=== PATIENT | female | born 1935 | race Caucasian/White ===

== ENCOUNTER 2016-05-27 12:15 | Inpatient (IN) | payer OTHER, MEDICARE ==
[~2016-05-27] VITALS: Ht 157.5 cm; Wt 59.0 kg
[~2016-05-27 12:15] MED LIST: ALBUTEROL 3 ML3 ML INH; AMIODARONE200 MG PO; APIX2.5 PO; ATIVAN0.5 MG PO; ATORVASTATIN CA20 MG PO; BACTRIM DS 8001 TAB PO; BENTYL10 M1 PO; CARDIZEM 60 MG60 MG PO; CARDIZEM CD 12120 MG PO; CARDIZEM CD120 MG PO; CARDIZEM CD180 MG PO; CIPRO 500MG TA500 MG PO; CIPRO500 M1 PO; CORDARONE 200M200 MG PO; DILAUDID2 MG PO; DILTIAZEM HCL240 MG PO; DILTIAZEM180 MG PO; DULCOLAX5 MG PO; DUONEB 3 MG/3 ML3 ML INH/SOL; ECOTRIN81 MG PO; ELIQUIS2.5 MG PO; ELIQUIS5 MG PO; FERATE28 MG PO; FERROUS SULFAT325 M1 PO; FLEXERIL10 MG PO; FUROSEMIDE40 MG PO; GOOD SENSE ASPI81 M1 PO; K-DUR 10MEQ TA10 MEQ PO; KLOR PO; LASIX20 MG PO; LASIX40 MG PO; LASIX80 MG PO; LEVOTHROID SOD0.1 MG PO; LEVOTHROID0.125 MG PO; LEVOTHYROXINE0.1 M1 PO; LEVOTHYROXINE0.1 MG PO; LISINOPRIL10 MG PO; LISINOPRIL20 MG PO; LISINOPRIL40 MG PO; LOPRESSOR 25MG25 MG PO; LOPRESSOR50 MG PO; MAGNESIUM OXID400 MG PO; METFORMIN HYDR500 MG PO; METOPROLOL SUCC50 MG PO; METOPROLOL TART50 MG PO; MIRALAX17 GM PO; MYCOSTATIN POWD15 GM TOP; NORVASC 10MG10 MG PO; NORVASC 5MG TAB5 MG PO; OMEPRAZOLE D/R20 MG PO; PLAVIX 75MG TAB75 MG PO; POTASSIUM CHLO10 ME1 PO; PREDNICOT10 MG PO; PREDNISONE 20MG20 MG PO; PRILOSEC 20MG C20 MG PO; SENNA8.6 MG PO; SYMBICORT 80/4.1 PUF INH; TRAMADOL HYDROC50 MG PO; TRAMADOL50 MG PO; ULTRAM(MONOGRAP50 MG PO; ZOFRAN ODT4 M1 SL
--- NOTE | 2016-05-27 12:25 | NUR ---
TRIAGE: PT TO ER WITH SON C/C COUGH, CONGESTION AND N/V. ONSET 3 DAYS AGO. STATES SHE IS COUGHING SO MUCH THAT SHE IS SPITTING UP PHLEGM. STATES HAS NOT BEEN ABLE TO EAT IN A FEW DAYS. PT O2 DEPENDENT AT BASELINE, USES 2-3L VIA N/C BUT THEY FORGOT TO BRING HER TANK WITH THEM THEY WERE IN "SUCH A [place]" COMING IN TO ER. R/A SATS 93% AT TRIAGE.
--- NOTE | 2016-05-27 12:25 | NUR ---
Informed waiting has been performed.
--- NOTE | 2016-05-27 12:42 | ED DYSPNEA/ASTHMA COMPLAINT ---
History of Present Illness General Chief Complaint: General Adult Stated Complaint: COUGH, CONGESTION, +N/V Source: patient Exam Limitations: no limitations Vital Signs & Intake/Output Vital Signs & Intake/Output Vital Signs Date Time Temp Pulse Resp B/P Pulse O2 O2 Flow FiO2 Ox Delivery Rate 05/27 1508 98.2 62 20 148/72 94 Room Air 05/27 1338 98 Nasal 2.0L Cannula 05/27 1222 98.6 65 22 153/75 93 Room Air Allergies Coded Allergies: amlodipine (Severe, C/P 05/27/16) codeine (Severe, C/P 05/27/16) morphine (Severe, C/P 05/27/16) omeprazole (Severe, C/P 05/27/16) Triage Note: TRIAGE: PT TO ER WITH SON C/C COUGH, CONGESTION AND N/V. ONSET 3 DAYS AGO. STATES SHE IS COUGHING SO MUCH THAT SHE IS SPITTING UP PHLEGM. STATES HAS NOT BEEN ABLE TO EAT IN A FEW DAYS. PT O2 DEPENDENT AT BASELINE, USES 2-3L VIA N/C BUT THEY FORGOT TO BRING HER TANK WITH THEM THEY WERE IN "SUCH A [place]" COMING IN TO ER. R/A SATS 93% AT TRIAGE. Triage Nurses Notes Reviewed? yes HPI: 80-year-old female arrives through triage to room 2 for evaluation of cough, congestion that she has had for about a week. She reports it has been getting worse with some chills and felt feverish but never took her temperature. And is yellow to a light brown color. She denies any chest pain or pressure but does have shortness of breath and shortness of breath on exertion. Denies any nausea , vomiting, diarrhea or abdominal pain. She denies any pain at this time. She has a history of multiple medical issues including CAD, atrial fibrillation, CHF , lung cancer status post lobectomy, interstitial lung disease. (NILDA TURK APRN) Reconcile Medications Albuterol Sulfate/Ipratropiu (Duoneb) 3 MG/3 ML NEB 1 Vial INH/ROCIO PRN DYSPNEA (Reported) Amiodarone Hydrochloride (Amiodarone) 200 MG TAB 1 TAB PO DAILY HEART RHYTHM (Reported) Amlodipine (Norvasc 5MG Tab) 5 MG TAB 1.5 TAB PO DAILY HIGH BP Apixaban (Eliquis) 2.5 MG TAB 1 TAB PO BID BLOOD THINNER (Reported) Atorvastatin Calcium (Lipitor) 20 MG TABLET 1 TAB PO DAILY CHOLESTEROL ( Reported) Ciprofloxacin (Cipro) 500 MG TAB 1 TAB PO BID UTI Ciprofloxacin HCl (Cipro) 500 MG TABLET 1 TAB PO BID UTI Dicyclomine Hydrochloride (Bentyl) 10 MG CAPSULE 1 CAP PO TID PRN ABDOMINAL SPASMS DILTIAZEM HCL (Cardizem Cd) 120 MG CER 1 TAB PO DAILY HEART RATE (Reported) Levothyroxine Sodium 0.1 MG TAB 1 TAB PO DAILY HYPERTHYROIDISM PLEASE TAKE THIS TABLET IN AM. Lisinopril 40 MG TAB 1 TAB PO DAILY HYPERTENSION Lorazepam (Ativan) 0.5 MG TAB 1 TAB PO Q6-8P PRN ANXIETY (Reported) Magnesium Oxide 400 MG TABLET 1 TAB PO DAILY MINERAL SUPPLEMENT (Reported) METFORMIN HCL (Metformin Hydrochloride) 500 MG TABLET 1 TAB PO DAILY DIABETES MELLITUS (Reported) Metoprolol Tartrate (Lopressor) 25 MG TAB 1 TAB PO BID BLOOD PRESSURE Nystatin (Mycostatin Powder) 15 GM PWD 1 JC TOP TID PRN fungal rash Ondansetron (Zofran Odt) 4 MG TAB.RAPDIS 1 TAB SL TID PRN nausea Ondansetron (Zofran Odt) 4 MG TAB.RAPDIS 1 TAB SL TID PRN NAUSEA Prednisone 20 MG TAB 1 TAB PO DAILY SOB TRAMADOL HCL (Tramadol) 50 MG TAB 1 TAB PO TID PRN PAIN (BRAYDEN VENCES,KYLAH Jiménez) Past History Travel History Traveled to [place] past 21 day No Medical History Any Pertinent Medical History? see below for history Neurological: LOWER EXTREMITY WEAKNESS EENT: epistaxis Cardiovascular: AFIB, CAD (s/p stent to RCA), CHF, hypertension, hyperlipidemia Respiratory: COPD, interstitial lung disease, LUNG CA RUL LOBECTOMY O2 DEPENDENT 2-3L Gastrointestinal: diverticulitis, lactose intolerance, COLON CA SIGMOID COLECTOMY 02/13 colonoscopy fair prep - tics but no polyps 02/13- egd gastritis Hepatic: NONE Renal: urinary incontinence Musculoskeletal: chronic back pain, BROKEN BACK 15 YEARS AGO UNABLE TO BEAR WEIGHT Psychiatric: anxiety Endocrine: diabetes, hypothyroidism Blood Disorders: anemia Cancer(s): lung cancer (s/p right lobectomy), COLON/rectal DOSIMETRIST/Reproductive: TUBAL LIGATION History of MRSA: No History of VRE: No History of CDIFF: No Surgical History Surgical History: appendectomy, cholecystectomy, cataract removal, right lung resection sigmoid colectomy back surgery sigmoid colectomy Psychosocial History Who do you live with Daughter Services at Home Nursing What is your primary language Czech Tobacco Use: Quit >30 days ago ETOH Use: denies use Illicit Drug Use: denies illicit drug use Family History Family History, If Any: MOTHER FHx: stomach cancer FATHER FH: cancer BROTHER FH: prostate cancer Hx Contributory? No (NILDA TURK APRN) Review of Systems Review of Systems Constitutional: Reports: see HPI, chills, fever, malaise, weakness. EENTM: Denies: no symptoms. Respiratory: Reports: cough, orthopnea, short of breath, sputum production. Cardiovascular: Denies: no symptoms. GI: Reports: constipation, nausea, vomiting. Genitourinary: Denies: no symptoms. Musculoskeletal: Denies: no symptoms. Skin: Denies: no symptoms. Neurological/Psychological: Reports: tremors. Hematologic/Endocrine: Denies: no symptoms. Immunologic/Allergic: Denies: no symptoms. (NILDA TURK APRN) Physical Exam Physical Exam General Appearance: alert, awake, mild distress Head: atraumatic, normal appearance, active bleeding Eyes: Bilateral: normal appearance, PERRL, EOMI. Ears, Nose, Throat: normal pharynx, normal ENT inspection Neck: normal inspection, supple, full range of motion Respiratory: decreased breath sounds, wheezing Cardiovascular: regular rate/rhythm Peripheral Pulses: 2+ radial (R), 2+ radial (L), 2+ dorsalis pedis (R), 2+ dorsalis pedis (L) Gastrointestinal: normal bowel sounds, soft, tenderness (RIGHT UPPER QUADRANT) Extremities: normal inspection, normal capillary refill, normal range of motion, no edema Neurologic/Psych: no motor/sensory deficits, awake, alert, oriented x 3 Skin: intact, normal color, warm/dry Core Measures ACS in differential dx? No Severe Sepsis Present: No Septic Shock Present: No (NILDA TURK APRN) Progress Differential Diagnosis: bronchitis, CHF, COPD, pneumonia, LIVER PATHOLOGY Plan of Care: Orders Procedure Date/time Status CBC WITHOUT DIFFERENTIAL 05/29 599 Active BASIC ELECTROLYTES PLUS BUN&CR 05/29 599 Active Full Liquid Diet 05/28 B Active HEPATIC FUNCTION PANEL 05/27 181 Active TRC EVALUATION (GEN) 05/27 181 Active OXYGEN SETUP (GEN) 05/27 181 Active Pathway - chart 05/27 181 Active House Staff 05/27 181 Active Patient Data 05/27 181 Active Code Status 05/27 181 Active Patient Data 05/27 1808 Active US-ABD/PELV ORGAN DOPPLER 05/27 1658 Active Patient Data 05/27 1610 Active Admit to inpatient 05/27 1558 Active Add-on Test (ER Only) 05/27 1536 Active Add-on Test (ER Only) 05/27 1406 Active AEROSOL (GEN) 05/27 1342 Complete PARTIAL THROMBOPLASTIN TIME 05/27 1300 Complete PROTHROMBIN TIME 05/27 1300 Complete HEPATITIS PANEL 05/27 1300 Active Saline Lock 05/27 1245 Active RAPID VIRAL INFLUENZA A 05/27 1245 Complete BLOOD CULTURE 05/27 1245 Active TROPONIN LEVEL 05/27 1245 Active COMPREHENSIVE METABOLIC PANEL 05/27 1245 Active CBC WITHOUT DIFFERENTIAL 05/27 1245 Complete B-TYPE NATRIURETIC PEP (BNP) 05/27 1245 Active EKG 05/27 1245 Active VTE Mechanical Prophylaxis 05/27 UNK Active Telemetry/Frame Hand 05/27 UNK Active Current Medications Sig/Jonel Start time Last Medication Dose Stop Time Status Admin Amlodipine Besylate 7.5 MG DAILY 05/28 1000 UNVr (Norvasc) Magnesium Oxide 400 MG DAILY 05/28 1000 AC (Mag-Ox) Levothyroxine Sodium 0.1 MG DAILY AC 05/28 0700 AC (Synthroid) Apixaban 2.5 MG BID 05/27 2200 UNVr (Eliquis) Metoprolol Tartrate 25 MG BID 05/27 2200 AC (Lopressor) Albuterol Sulfate 3 ML Q6 PRN 05/27 181 AC (Proventil) Lisinopril 40 MG DAILY 05/27 181 AC (Prinivil) Diltiazem HCl 120 MG DAILY 05/27 181 AC (Cardizem CD) Sodium Chloride 1,000 ML .[id number] 05/27 1800 AC (Normal Saline 0.9%) 05/28 0719 Laboratory Tests 05/27/16 1300: Anion Gap 11, Estimated GFR > 60, BUN/Creatinine Ratio 22.9, Glucose 86, Calcium 8.8, Total Bilirubin 1.1, AST 2312 H, ALT 1633 H, Alkaline Phosphatase 123, Troponin I 0.04, Hvd-I-Bkaoosatsbl Pept 7110 H, Total Protein 7.1, Albumin 3.6, Globulin 3.5, Albumin/Globulin Ratio 1.0 L, PT 25.6 H, INR 2.46 H, APTT 37, CBC w Diff NO MAN DIFF REQ, RBC 3.67 L, MCV 85.8, MCH 28.2, RDW 19.4 H, MPV 7.6, Gran % 77.3 H, Lymphocytes % 17.7 L, Monocytes % 4.1, Eosinophils % 0.5, Basophils % 0.4, Absolute Granulocytes 8.4 H, Absolute Lymphocytes 1.9, Absolute Monocytes 0.4, Absolute Eosinophils 0.1, Absolute Basophils 0, PUBS MCHC 32.8 L, Hepatitis A IgM Ab Pending, Hep Bs Antigen Pending, Hep B Core IgM Ab Conf Pending, Hepatitis C Antibody Pending Microbiology 05/27 1620 NASOPHARYN: Influenza Virus A & B Rapid Smear - COMP INFLUENZA TYPE A 05/27 1556 BLOOD: Blood Culture - RECD 05/27 1300 BLOOD: Blood Culture - RECD Initial ED EKG: LBBB Prior EKG: unchanged Comments: PATIENT: VINCENT DRUMMOND PRESENT AGE: 80 PATIENT ACCOUNT NO: [id number] : 35 LOCATION: [facility] ORDERING PHYSICIAN: NILDA TURK APRN SERVICE DATE: 05/27/161245 EXAM TYPE: RAD - XRY-CHEST XRAY, PA AND LATERAL EXAMINATION: XR CHEST CLINICAL INFORMATION: Pneumonia COMPARISON: Chest x-ray 04/01/2016 TECHNIQUE: AP and lateral upright chest x-ray FINDINGS: There is mild cardiomegaly and a tortuous calcified aorta unchanged from prior. There is some surgical sutures in the right upper lobe along with some volume loss in the right hemithorax. This is unchanged from prior and may be related to prior right upper lobectomy. A small focal parenchymal opacity in the left midlung zone is new since prior study and could represent a focus of subsegmental atelectasis. No dense consolidation is appreciated. There is no pleural effusion or pneumothorax. There is spinal fusion hardware over the lower thoracic and upper lumbar spine. Bony detail is limited. IMPRESSION: There are are chronic changes in the right lung consistent with the history of prior right upper lobectomy. There is a streaky parenchymal opacity in the left midlung zone which is new or more prominent compared to prior study and could represent an area of subsegmental atelectasis. No dense consolidation is seen and there is no other change. DICTATED BY: ADILENE BOOTH MD DATE/TIME DICTATED:05/27/161422 PLAYBACK OPERATOR:ADAM DATE/TIME TRANSCRIBED:05/27/161422 CONFIDENTIAL, DO NOT COPY WITHOUT APPROPRIATE AUTHORIZATION. <Electronically signed in Other Vendor System> SIGNED BY: ADILENE BOOTH MD 05/27 1431 PATIENT: VINCENT DRUMMOND PRESENT AGE: 80 PATIENT ACCOUNT NO: [id number] : 35 LOCATION: [facility] ORDERING PHYSICIAN: NILDA TURK APRN SERVICE DATE: 05/27/16 EXAM TYPE: US - US-LIMITED ABDOMEN EXAMINATION: US ABDOMEN LIMITED CLINICAL INFORMATION: Elevated liver enzymes. Right upper quadrant pain. Presumptive diagnosis of retained stones. COMPARISON: Right upper quadrant ultrasound dated 05/06/2015. TECHNIQUE: Real-time imaging of the right upper quadrant abdominal viscera. FINDINGS: PANCREAS: The pancreatic body and portions of the head and tail are visualized and appear atrophic, but otherwise unremarkable. LIVER: Normal. The liver demonstrates normal size, contour and echogenicity. No focal lesion or intrahepatic biliary duct dilatation. GALLBLADDER: The patient is status post cholecystectomy. COMMON BILE DUCT: Normal in caliber measuring 0.4 cm in diameter. RIGHT KIDNEY: There is an exophytic approximately 3.0 x 3.7 x 2.9 cm partially exophytic cyst in the upper pole of the right kidney. No other focal parenchymal lesions. The kidney measures at least 9.4 cm in maximum dimension. No hydronephrosis. No renal calculi. The previously demonstrated extrarenal pelvis and dilated right ureter are not imaged. FREE FLUID: None. IMPRESSION: 1. Status post cholecystectomy with no evidence of intra or extrahepatic biliary ductal dilatation. 2. Incomplete view of the pancreatic head and tail. Visualized portions of the pancreas appear atrophic but otherwise unremarkable. 3. Exophytic upper pole right renal cyst. 4. Previously demonstrated extrarenal pelvis and dilated right ureter not seen on this exam versus resolved in the interim. DICTATED BY: JAMAAL VALLEJO MD DATE/TIME DICTATED:05/27/161507 PLAYBACK OPERATOR:ADAM DATE/TIME TRANSCRIBED:05/27/161507 CONFIDENTIAL, DO NOT COPY WITHOUT APPROPRIATE AUTHORIZATION. <Electronically signed in Other Vendor System> SIGNED BY: JAMAAL VALLEJO MD 1532 3:49 PM spoke to family and patient about being admitted for COPD exacerbation and the need for IV antibiotics, breathing treatments also further investigation for the elevated liver enzymes. I explained to her that her ultrasound of her abdomen WNL and that gastroenterology will be on board. She is taking amiodarone/Eliquis could alter her hepatic metabolism. Case discussed with Dr. Vigil (NILDA TURK APRN) Departure Departure Time of Disposition: 1553 Disposition: STILL A PATIENT Condition: Stable Clinical Impression Primary Impression: COPD exacerbation Secondary Impressions: Transaminitis Referrals: DIVYA VENCES,MARCI Cazares (PCP/Family) Departure Forms: Customer Survey General Discharge Information Prescriptions: Current Visit Scripts Ondansetron (Zofran Odt) 1 TAB SL TID PRN nausea #10 TAB Admission Note Spoke With: BEHZAD CASTRO MD Documentation of Exam: Documentation of any treatments & extenuating circumstances including Concerns Regarding Discharge (functional status, medication knowledge or non-compliance, living conditions, etc.) that warrant an admission rather than observation: She will be need admission to general medicine for COPD exacerbation, IV antibiotics , respiratory treatments also gastroenterology consultation due to transaminitis , abdominal ultrasound was negative but hepatitis panel is pending. Could be medication interaction with amiodarone, Eliquis- combination may increase Eliquis levels, risk of bleeding, hepatic metabolism inhibited. (NILDA TURK APRN) PA/AUTOMOTIVE PARTS COUNTER ASSOCIATE Co-Sign Statement Statement: ED Attending supervision documentation- [X] I saw and evaluated the patient. I have also reviewed all the pertinent lab results and diagnostic results. I agree with the findings and the plan of care as documented in the PA's/AUTOMOTIVE PARTS COUNTER ASSOCIATE's documentation. [X] I have reviewed the ED Record and agree with the PA's/AUTOMOTIVE PARTS COUNTER ASSOCIATE's documentation. [] Additions or exceptions (if any) to the PAs/AUTOMOTIVE PARTS COUNTER ASSOCIATE's note and plan are summarized below: [] (BRAYDEN VENCES,KYLAH Jiménez) Critical Care Note Critical Care Note Critical Care Time: non-applicable (NILDA TURK APRN)
--- NOTE | 2016-05-27 13:06 | NUR ---
PT TO ROOM2 BY WHEELCHAIR, EVALUATED BY MACRINA MUNGUIA. BLOOD DRAWN AND SENT TO LAB[facility] [place]. EKG IN PROGRESS.
--- NOTE | 2016-05-27 13:15 | NUR ---
PT MEDICATED WITH PREDNISONE PER EMAR.
[2016-05-27 13:16] LABS: ABSOLUTE BASOPHIL COUNT 0 /CUMM (0.0-0.2); ABSOLUTE EOSINOPHIL COUNT 0.1 /CUMM (0.0-0.7); ABSOLUTE GRANULOCYTE CT 8.4 /CUMM (1.4-6.5); ABSOLUTE LYMPH COUNT 1.9 /CUMM (1.2-3.4); ABSOLUTE MONOCYTE COUNT 0.4 /CUMM (0.10-0.60); BASOPHIL % 0.4 % (0.0-2.0); EOSINOPHIL % 0.5 % (0-5); GRANULOCYTE % 77.3 % (42.2-75.2); HEMATOCRIT 31.5 % (37-47); MEAN CORPUSCULAR HGB 28.2 PG (27.0-31.0); MEAN CORPUSCULAR HGB CONC 32.8 G/DL (33.0-37.0); MEAN CORPUSCULAR VOLUME 85.8 FL (81.0-99.0); MEAN PLATELET VOLUME 7.6 FL (7.4-10.4); PLATELET COUNT 400 /CUMM (130-400); RBC DISTRIBUTION WIDTH 19.4 % (11.5-14.5); RED BLOOD CELL CT 3.67 /CUMM (4.20-5.40); WHITE BLOOD CELL COUNT 10.8 /CUMM (4.8-10.8)
--- NOTE | 2016-05-27 13:22 | NUR ---
PT TO RAD BY STRETCHER.
--- NOTE | 2016-05-27 13:36 | NUR ---
PT RETURNED FROM RAD, RESP TO BEDSIDE FOR TX.
[2016-05-27 14:20] LABS: PT 25.6 SEC (9.4-12.5); PTT 37 SEC (25-37)
--- NOTE | 2016-05-27 14:31 | RADIOLOGY REPORT ---
EXAMINATION: XR CHEST CLINICAL INFORMATION: Pneumonia COMPARISON: Chest x-ray 04/01/2016 TECHNIQUE: AP and lateral upright chest x-ray FINDINGS: There is mild cardiomegaly and a tortuous calcified aorta unchanged from prior. There is some surgical sutures in the right upper lobe along with some volume loss in the right hemithorax. This is unchanged from prior and may be related to prior right upper lobectomy. A small focal parenchymal opacity in the left midlung zone is new since prior study and could represent a focus of subsegmental atelectasis. No dense consolidation is appreciated. There is no pleural effusion or pneumothorax. There is spinal fusion hardware over the lower thoracic and upper lumbar spine. Bony detail is limited. IMPRESSION: There are are chronic changes in the right lung consistent with the history of prior right upper lobectomy. There is a streaky parenchymal opacity in the left midlung zone which is new or more prominent compared to prior study and could represent an area of subsegmental atelectasis. No dense consolidation is seen and there is no other change.
--- NOTE | 2016-05-27 14:57 | NUR ---
PT TO AND FROM US BY STRETCHER.
--- NOTE | 2016-05-27 15:32 | ULTRASOUND REPORT ---
EXAMINATION: US ABDOMEN LIMITED CLINICAL INFORMATION: Elevated liver enzymes. Right upper quadrant pain. Presumptive diagnosis of retained stones. COMPARISON: Right upper quadrant ultrasound dated 05/06/2015. TECHNIQUE: Real-time imaging of the right upper quadrant abdominal viscera. FINDINGS: PANCREAS: The pancreatic body and portions of the head and tail are visualized and appear atrophic, but otherwise unremarkable. LIVER: Normal. The liver demonstrates normal size, contour and echogenicity. No focal lesion or intrahepatic biliary duct dilatation. GALLBLADDER: The patient is status post cholecystectomy. COMMON BILE DUCT: Normal in caliber measuring 0.4 cm in diameter. RIGHT KIDNEY: There is an exophytic approximately 3.0 x 3.7 x 2.9 cm partially exophytic cyst in the upper pole of the right kidney. No other focal parenchymal lesions. The kidney measures at least 9.4 cm in maximum dimension. No hydronephrosis. No renal calculi. The previously demonstrated extrarenal pelvis and dilated right ureter are not imaged. FREE FLUID: None. IMPRESSION: 1. Status post cholecystectomy with no evidence of intra or extrahepatic biliary ductal dilatation. 2. Incomplete view of the pancreatic head and tail. Visualized portions of the pancreas appear atrophic but otherwise unremarkable. 3. Exophytic upper pole right renal cyst. 4. Previously demonstrated extrarenal pelvis and dilated right ureter not seen on this exam versus resolved in the interim.
[2016-05-27] MEDS ORDERED: ZOFRAN ODT4 M1 SL (15:52)
--- NOTE | 2016-05-27 16:10 | NUR ---
PT MEDICATED WITH ROCEPHIN PER EMAR. ZITHROMAX INFUSING PER EMAR.
--- NOTE | 2016-05-27 16:14 | History & Physical ---
General Information and HPI Allergies/Medications Allergies: Coded Allergies: amlodipine (Severe, C/P 05/27/16) codeine (Severe, C/P 05/27/16) morphine (Severe, C/P 05/27/16) omeprazole (Severe, C/P 05/27/16) Home Med list Albuterol Sulfate/Ipratropiu (Duoneb) 3 MG/3 ML NEB 1 Vial INH/ROCIO PRN DYSPNEA (Reported) Amiodarone Hydrochloride (Amiodarone) 200 MG TAB 1 TAB PO DAILY HEART RHYTHM (Reported) Amlodipine (Norvasc 5MG Tab) 5 MG TAB 1.5 TAB PO DAILY HIGH BP Apixaban (Eliquis) 2.5 MG TAB 1 TAB PO BID BLOOD THINNER (Reported) Atorvastatin Calcium (Lipitor) 20 MG TABLET 1 TAB PO DAILY CHOLESTEROL ( Reported) Ciprofloxacin (Cipro) 500 MG TAB 1 TAB PO BID UTI Ciprofloxacin HCl (Cipro) 500 MG TABLET 1 TAB PO BID UTI Dicyclomine Hydrochloride (Bentyl) 10 MG CAPSULE 1 CAP PO TID PRN ABDOMINAL SPASMS DILTIAZEM HCL (Cardizem Cd) 120 MG CER 1 TAB PO DAILY HEART RATE (Reported) Levothyroxine Sodium 0.1 MG TAB 1 TAB PO DAILY HYPERTHYROIDISM PLEASE TAKE THIS TABLET IN AM. Lisinopril 40 MG TAB 1 TAB PO DAILY HYPERTENSION Lorazepam (Ativan) 0.5 MG TAB 1 TAB PO Q6-8P PRN ANXIETY (Reported) Magnesium Oxide 400 MG TABLET 1 TAB PO DAILY MINERAL SUPPLEMENT (Reported) METFORMIN HCL (Metformin Hydrochloride) 500 MG TABLET 1 TAB PO DAILY DIABETES MELLITUS (Reported) Metoprolol Tartrate (Lopressor) 25 MG TAB 1 TAB PO BID BLOOD PRESSURE Nystatin (Mycostatin Powder) 15 GM PWD 1 JC TOP TID PRN fungal rash Ondansetron (Zofran Odt) 4 MG TAB.RAPDIS 1 TAB SL TID PRN nausea Ondansetron (Zofran Odt) 4 MG TAB.RAPDIS 1 TAB SL TID PRN NAUSEA Prednisone 20 MG TAB 1 TAB PO DAILY SOB TRAMADOL HCL (Tramadol) 50 MG TAB 1 TAB PO TID PRN PAIN Past History Travel History Traveled to [place] past 21 day No Medical History Neurological: LOWER EXTREMITY WEAKNESS EENT: epistaxis Cardiovascular: AFIB, CAD (s/p stent to RCA), CHF, hypertension, hyperlipidemia Respiratory: COPD, interstitial lung disease, LUNG CA RUL LOBECTOMY O2 DEPENDENT 2-3L Gastrointestinal: diverticulitis, lactose intolerance, COLON CA SIGMOID COLECTOMY 02/13 colonoscopy fair prep - tics but no polyps 02/13- egd gastritis Hepatic: NONE Renal: urinary incontinence Musculoskeletal: chronic back pain, BROKEN BACK 15 YEARS AGO UNABLE TO BEAR WEIGHT Psychiatric: anxiety Endocrine: diabetes, hypothyroidism Blood Disorders: anemia Cancer(s): lung cancer (s/p right lobectomy), COLON/rectal BUCKLE FRAME SHAPER/Reproductive: TUBAL LIGATION History of MRSA: No History of VRE: No History of CDIFF: No Surgical History Surgical History: appendectomy, cholecystectomy, cataract removal, right lung resection sigmoid colectomy back surgery sigmoid colectomy Past Family/Social History Family History Relations & Conditions if any MOTHER FHx: stomach cancer FATHER FH: cancer BROTHER FH: prostate cancer Psychosocial History Who Do You Live With? child, SHE LIVES WITH HER DAUGHTER Services at Home: Nursing ETOH Use: denies use Illicit Drug Use: denies illicit drug use Core Measures/Miscellaneous Severe Sepsis Severe Sepsis Present: No Septic Shock Septic Shock Present: No
--- NOTE | 2016-05-27 16:21 | NUR ---
FLU SWAB OBTAINED AND SENT TO LAB.
--- NOTE | 2016-05-27 16:45 | NUR ---
CRITICAL TEST RESULTS [id number] VINCENT DRUMMOND 80 F TESTS AND RESULTS: INFLUENZA A Results received and read back by: FOSTER BARLOW Results received date and time: 05/27/16 1645 The following provider was notified of the results, and read the results back: MACRINA MUNGUIA Notified date and time: 05/27/16 at 1645
--- NOTE | 2016-05-27 16:47 | NUR ---
DROPLET PRECAUTIONS INITIATED.
--- NOTE | 2016-05-27 16:55 | NUR ---
FOOD TRAY ORDERED FOR PT.
--- NOTE | 2016-05-27 17:29 | NUR ---
FOOD TRAY PROVIDED.
--- NOTE | 2016-05-27 17:32 | History & Physical ---
DO COKER 05/27/16 1732: General Information and HPI MD Statement: I have seen and personally examined VINCENT DRUMMOND and documented this H&P. 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 Cough started 5 days ago and was initially nonproductive and the last two days she has been having yellowis expectoration. Vomitus is nonbloody and mainly non digested food and is of two days duration. She has been unable to keep anything down since the past two days. She lives with her daughter and her daughter has simillar symptoms. Does not report increase in Oxygen requirements. Reported RUQ abdominal pain. Denies fever, chills, chest pain, new myalgias, change in bowel or bladder habits. Allergies/Medications Allergies: Coded Allergies: amlodipine (Severe, C/P 05/27/16) codeine (Severe, C/P 05/27/16) morphine (Severe, C/P 05/27/16) omeprazole (Severe, C/P 05/27/16) Home Med list Albuterol Sulfate/Ipratropiu (Duoneb) 3 MG/3 ML NEB 1 Vial INH/ROCIO PRN DYSPNEA (Reported) Amiodarone Hydrochloride (Amiodarone) 200 MG TAB 1 TAB PO DAILY HEART RHYTHM (Reported) Amlodipine (Norvasc 5MG Tab) 5 MG TAB 1.5 TAB PO DAILY HIGH BP Apixaban (Eliquis) 2.5 MG TAB 1 TAB PO BID BLOOD THINNER (Reported) Atorvastatin Calcium (Lipitor) 20 MG TABLET 1 TAB PO DAILY CHOLESTEROL ( Reported) Ciprofloxacin (Cipro) 500 MG TAB 1 TAB PO BID UTI Ciprofloxacin HCl (Cipro) 500 MG TABLET 1 TAB PO BID UTI Dicyclomine Hydrochloride (Bentyl) 10 MG CAPSULE 1 CAP PO TID PRN ABDOMINAL SPASMS DILTIAZEM HCL (Cardizem Cd) 120 MG CER 1 TAB PO DAILY HEART RATE (Reported) Levothyroxine Sodium 0.1 MG TAB 1 TAB PO DAILY HYPERTHYROIDISM PLEASE TAKE THIS TABLET IN AM. Lisinopril 40 MG TAB 1 TAB PO DAILY HYPERTENSION Lorazepam (Ativan) 0.5 MG TAB 1 TAB PO Q6-8P PRN ANXIETY (Reported) Magnesium Oxide 400 MG TABLET 1 TAB PO DAILY MINERAL SUPPLEMENT (Reported) METFORMIN HCL (Metformin Hydrochloride) 500 MG TABLET 1 TAB PO DAILY DIABETES MELLITUS (Reported) Metoprolol Tartrate (Lopressor) 25 MG TAB 1 TAB PO BID BLOOD PRESSURE Nystatin (Mycostatin Powder) 15 GM PWD 1 JC TOP TID PRN fungal rash Ondansetron (Zofran Odt) 4 MG TAB.RAPDIS 1 TAB SL TID PRN nausea Ondansetron (Zofran Odt) 4 MG TAB.RAPDIS 1 TAB SL TID PRN NAUSEA Prednisone 20 MG TAB 1 TAB PO DAILY SOB TRAMADOL HCL (Tramadol) 50 MG TAB 1 TAB PO TID PRN PAIN Compliance With Home Meds: GOOD Past History Travel History Traveled to [place] past 21 day No Medical History Neurological: LOWER EXTREMITY WEAKNESS EENT: epistaxis Cardiovascular: AFIB, CAD (s/p stent to RCA), CHF, hypertension, hyperlipidemia Respiratory: COPD, interstitial lung disease, LUNG CA RUL LOBECTOMY O2 DEPENDENT 2-3L Gastrointestinal: diverticulitis, lactose intolerance, COLON CA SIGMOID COLECTOMY 02/13 colonoscopy fair prep - tics but no polyps 02/13- egd gastritis Hepatic: NONE Renal: urinary incontinence Musculoskeletal: chronic back pain, BROKEN BACK 15 YEARS AGO UNABLE TO BEAR WEIGHT Psychiatric: anxiety Endocrine: diabetes, hypothyroidism Blood Disorders: anemia Cancer(s): lung cancer (s/p right lobectomy), 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 Home Who Do You Live With? child, SHE LIVES WITH HER DAUGHTER Services at Home: Nursing Smoking Status: Former Smoker ETOH Use: denies use Illicit Drug Use: denies illicit drug use Functional Ability ADLs Independent: dressing, eating, toileting, bathing. Ambulation: non-ambulatory IADLs Independent: shopping, housework, finances, food prep, telephone, transportation , medication admin. Review of Systems Review of Systems Constitutional: Denies: chills, diaphoresis, fever, malaise, weakness, unexplained weight loss. Cardiovascular: Denies: chest pain, edema, orthopena, palpitations, peripheral edema, syncope. Respiratory: Reports: cough, short of breath, sputum production. Denies: hemoptysis, orthopnea, stridor, wheezing. GI: Denies: abdominal pain, bloating, constipation, diarrhea, distention, bowel incontinence, melena, nausea, bloody stool, changes in stool, vomiting, steatorrhea. Genitourinary: Denies: discharge, dysuria, frequency, hematuria, hesitation, nocturia, pain, urgency. Skin: Denies: jaundice, rash. Exam & Diagnostic Data Last 24 Hrs of Vital Signs/I&O Vital Signs Date Time Temp Pulse Resp B/P Pulse O2 O2 Flow FiO2 Ox Delivery Rate 05/27 2152 68 162/74 05/27 2127 98.2 62 18 162/70 96 Room Air 05/27 1924 60 20 163/70 98 Nasal 2.0L Cannula 05/27 1923 60 163/70 05/27 1508 98.2 62 20 148/72 94 Room Air 05/27 1338 98 Nasal 2.0L Cannula 05/27 1222 98.6 65 22 153/75 93 Room Air Intake & Output 05/27 1600 05/27 0800 05/27 0000 Intake Total Output Total Balance Patient 135 lb Weight Physical Exam General Appearance Alert, Oriented X3, Cooperative, Mild Distress Skin No Rashes, No Breakdown, No Significant Lesion HEENT Atraumatic, PERRLA, dry mucous membranes Neck Supple, No JVD, +2 Carotid Pulse wo Bruit Lymphatic Cervical nl Cardiovascular Normal S1, Normal S2, distant heart sounds Lungs b/l rhonchi and scattered wheezes Abdomen Normal Bowel Sounds, Soft, No Tenderness Extremities No Edema Last 24 Hrs of Labs/Twan: Laboratory Tests 05/27/16 1300: Anion Gap 11, Estimated GFR > 60, BUN/Creatinine Ratio 22.9, Glucose 86, Calcium 8.8, Total Bilirubin 1.1, AST 2312 H, ALT 1633 H, Alkaline Phosphatase 123, Troponin I 0.04, Gwq-B-Rlfhonxjnyg Pept 7110 H, Total Protein 7.1, Albumin 3.6, Globulin 3.5, Albumin/Globulin Ratio 1.0 L, PT 25.6 H, INR 2.46 H, APTT 37, CBC w Diff NO MAN DIFF REQ, RBC 3.67 L, MCV 85.8, MCH 28.2, RDW 19.4 H, MPV 7.6, Gran % 77.3 H, Lymphocytes % 17.7 L, Monocytes % 4.1, Eosinophils % 0.5, Basophils % 0.4, Absolute Granulocytes 8.4 H, Absolute Lymphocytes 1.9, Absolute Monocytes 0.4, Absolute Eosinophils 0.1, Absolute Basophils 0, PUBS MCHC 32.8 L, Hepatitis A IgM Ab Pending, Hep Bs Antigen Pending, Hep B Core IgM Ab Conf Pending, Hepatitis C Antibody Pending, Acetaminophen < 10.0 L Microbiology 05/27 1620 NASOPHARYN: Influenza Virus A & B Rapid Smear - COMP INFLUENZA TYPE A 05/27 1556 BLOOD: Blood Culture - RECD 05/27 1300 BLOOD: Blood Culture - RECD Diagnostic Data EKG Results afib HR 60, prolonged QTc 532, LBBB CXR Results SERVICE DATE: 05/27/16 EXAM TYPE: RAD - XRY-CHEST XRAY, PA AND LATERAL FINDINGS: There is mild cardiomegaly and a tortuous calcified aorta unchanged from prior. There is some surgical sutures in the right upper lobe along with some volume loss in the right hemithorax. This is unchanged from prior and may be related to prior right upper lobectomy. A small focal parenchymal opacity in the left midlung zone is new since prior study and could represent a focus of subsegmental atelectasis. No dense consolidation is appreciated. There is no pleural effusion or pneumothorax. There is spinal fusion hardware over the lower thoracic and upper lumbar spine. Bony detail is limited. IMPRESSION: There are are chronic changes in the right lung consistent with the history of prior right upper lobectomy. There is a streaky parenchymal opacity in the left midlung zone which is new or more prominent compared to prior study and could represent an area of subsegmental atelectasis. No dense consolidation is seen and there is no other change. Other Results SERVICE DATE: 05/27/16 EXAM TYPE: US - US-LIMITED ABDOMEN FINDINGS: PANCREAS: The pancreatic body and portions of the head and tail are visualized and appear atrophic, but otherwise unremarkable. LIVER: Normal. The liver demonstrates normal size, contour and echogenicity. No focal lesion or intrahepatic biliary duct dilatation. GALLBLADDER: The patient is status post cholecystectomy. COMMON BILE DUCT: Normal in caliber measuring 0.4 cm in diameter. RIGHT KIDNEY: There is an exophytic approximately 3.0 x 3.7 x 2.9 cm partially exophytic cyst in the upper pole of the right kidney. No other focal parenchymal lesions. The kidney measures at least 9.4 cm in maximum dimension. No hydronephrosis. No renal calculi. The previously demonstrated extrarenal pelvis and dilated right ureter are not imaged. FREE FLUID: None. IMPRESSION: 1. Status post cholecystectomy with no evidence of intra or extrahepatic biliary ductal dilatation. 2. Incomplete view of the pancreatic head and tail. Visualized portions of the pancreas appear atrophic but otherwise unremarkable. 3. Exophytic upper pole right renal cyst. 4. Previously demonstrated extrarenal pelvis and dilated right ureter not seen on this exam versus resolved in the interim. SERVICE DATE: 05/27/16 EXAM TYPE: US - US-ABD/PELV ORGAN DOPPLER FINDINGS: With color Doppler imaging, the main portal vein is found to be patent with normal hepatopetal flow demonstrated. Peak velocities between 38.6 and 42.7 cm/s are obtained. Spectral waveform has a normal configuration. The right and left portal veins are patent with peak systolic velocities of 24.5 cm/s in the right portal vein and 17.5 cm/s in the left portal vein. Spectral waveform pattern is normal. The intrahepatic IVC and the right, middle and left hepatic veins are patent with normally directed hepatofugal flow and normal spectral waveforms. The main, right and left hepatic arteries are patent with peak systolic velocities between 50 and 70 cm/s and borderline elevated resistive indices of 0.9. This may be normal given the patient's age. IMPRESSION: Normal hepatic Doppler ultrasound with patent hepatic arteries, patent and normally directed portal veins and hepatic veins. Intrahepatic IVC patent. 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 afebrile, labs pertinant for transaminitis, hypernatremia, flu swab positive for influenza A, CXR shows no evidence of pneumonia. Abd US shows that she status post cholecystectomy with no biliary ductal dilatation and no masses. Problem list: Influenza transaminits hypovolemic hypernatremia COPD exacerbation PAF CAD HTN h/o of colon cancer h/o of lung cancer HFpEF Hypothyroidism Diabetes Plan: TRC/nebs, Will start her on tamiflu 75 mg BID for 7 days She has been on amiodarone since August 2014 and has had previous history of amidarone toxicity. As drug toxicity is highly likely and we will be holding amiodarone, Cardio consulted. Spoke to Dr. Posadas who is recomending she be admitted to the tele floor for continuous cardiac monitoring. Last Echo in 2014 shows EF of 55% Stated that her lasix was stopped by Dr. Langley one year ago US r/o biliary pathology and she is s/p cholecystectomy. GI aware of patient Will give gentle hydration of NS at 75ml 1L Will hold all hepatoxic med such as lipitor,tramadol, zofran will continue her ELiqius, lisinopril, lopressor, levothryoxine. hold metformin while admitted, monitor fingersticks, start insulin sliding scale on liquid diet for now as she is still unable to keep anything down, advance to diabetic/heart healthy as tolerated DVT prophylaxis with eliquis DNR/DNI pain pathway: will hold off due to her transaminitis, she is allergic to morphine and codeine As Ranked By This Provider Problem List: 1. History of - hypertension 2. History of - hypothyroidism 3. Hyperlipidemia 4. SOB (shortness of breath) 5. Influenza A 6. Transaminitis Core Measures/Miscellaneous Acute Coronary Syndrome ACS Diagnosis: No Cerebrovascular Accident CVA/TIA Diagnosis: No Congestive Heart Failure CHF Diagnosis: Yes Last Known EF %: 55 JEFFREY/ARB for EF <40%: Yes Venous Thromboembolism VTE Risk Factors: Age > 40, Immobility, paresis VTE Prophylaxis Ordered Inpt: Pharm- Eliquis No [facility] VTE prophylaxis d/t: No contraindications No VTE Pharm Prophylaxis d/t: No contraindications VTE Diagnosis: No VTE Type: NONE VTE Confirmed by (Test): NONE Severe Sepsis Severe Sepsis Present: No Septic Shock Septic Shock Present: No Miscellaneous Documentation Attending Case Discussed With: BEHZAD CASTRO MD Primary Care Physician: MARCI STOKES MD Patient sees these Specialists Dr. Shivam Pleitez Level of Patient Care: Telemetry BEHZAD CASTRO MD 05/27/16 1908: Attending MD Review Statement Attending Statement Attending MD Statement: examined this patient, discuss w/resident/PA/PROVER, agreed w/resident/PA/PROVER, reviewed EMR data (avail), reviewed images Attending Assessment/Plan: 80-year-old very complex female with multiple medical problems known to me from previous admissions. She has underlying COPD, history of lung CA with lobectomy, Coronary artery disease with remote history of stents and A. fib on amiodarone Eliquis. She came in with a complaints of cough with brownish phlegm and feeling of an upper respiratory tract infection. In the ED she complained of right upper quadrant tenderness and was noted to have severe transaminitis with an AST of 2312 and an ALT of 1633. She's not jaundiced, she's coagulopathic but likely due to the Eliquis that she takes for the A. fib. She has no evidence of impending liver failure or encephalopathy. An ultrasound done shows that she status post cholecystectomy with no biliary ductal dilatation and no mass. Will bring her into general med, will need GIs help for the transaminitis- the differential diagnosis is very wide and likely is medication induced with everything from amiodarone to other medications on her list. Will hold any obvious hepatotoxic meds for now and go over her med list closely. In addition she has acute influenza as evidenced by the flu swab being positive. There is no evidence of pneumonia on the chest x-ray. We'll treat her with Tamiflu and will obviously have to watch the transaminitis extremely closely. Gently hydrate her and follow. Will need to call Cardiology as if this is Amio induced liver disease will need alternatives (with her Cardizem and Metoprolol contd.) for rate control
--- NOTE | 2016-05-27 18:54 | NUR ---
Emergency Dept [facility] Admit Note: To be admitted to [facility] by DR CASTRO with COPD EXACERBATION as the diagnosis, to 176-01 location. Nursing [employer]er and admitting notified 05/27/16 at 0515
--- NOTE | 2016-05-27 19:13 | Admission Certification ---
Admission Certification Certification Statement - As attending physician, I certify that at the time of - admission, based on clinical presentation, severity of - symptoms, need for further diagnostic testing and - therapeutic interventions, and risk of adverse outcomes - without in-hospital treatment, in my clinical assessment, - this patient requires an acute hospital stay for a minimum - of two nights or longer. I have also considered psychsocial - factors such as support system, advanced age, financial - issues, cognitive issues, and failed out-patient treatments, - past re-admission history, safety of patient, and lack of - compliance as applicable. Specific rationale supporting this admission is: acute influenza, acute transaminitis, needs tamiflu and close f/u
--- NOTE | 2016-05-27 19:25 | NUR ---
PT TAKEN TO ULTRASOUND AT THIS TIME.
--- NOTE | 2016-05-27 19:27 | NUR ---
REPORT GIVEN TO JEANA RAY TO TELE.
--- NOTE | 2016-05-27 19:59 | NUR ---
[facility] CALLED FOR TRANSPORT TO ROOM 176-01.
--- NOTE | 2016-05-27 20:12 | ULTRASOUND REPORT ---
EXAMINATION: HEPATIC ULTRASOUND WITH DOPPLER CLINICAL INFORMATION: Hepatic failure. Portal and hepatic Doppler evaluation. COMPARISON: Right upper quadrant ultrasound dated 05/27/2016. CT scan of the abdomen and pelvis dated 03/29/2016. TECHNIQUE: Real-time imaging of the liver with Doppler assessment of the hepatic and portal veins. FINDINGS: With color Doppler imaging, the main portal vein is found to be patent with normal hepatopetal flow demonstrated. Peak velocities between 38.6 and 42.7 cm/s are obtained. Spectral waveform has a normal configuration. The right and left portal veins are patent with peak systolic velocities of 24.5 cm/s in the right portal vein and 17.5 cm/s in the left portal vein. Spectral waveform pattern is normal. The intrahepatic IVC and the right, middle and left hepatic veins are patent with normally directed hepatofugal flow and normal spectral waveforms. The main, right and left hepatic arteries are patent with peak systolic velocities between 50 and 70 cm/s and borderline elevated resistive indices of 0.9. This may be normal given the patient's age. IMPRESSION: Normal hepatic Doppler ultrasound with patent hepatic arteries, patent and normally directed portal veins and hepatic veins. Intrahepatic IVC patent.
--- NOTE | 2016-05-27 20:21 | Cons- Gastroenterology ---
General Information and HPI Consulting Request Date of Consult: 05/27/16 Requested By: GLORIA VENCES,BEHZAD Reaves Reason for Consult: Called by the ER earlier this p.m on behalf of Dr. Son Love, to assess incidental transaminitis in a patient admitted for a flare of COPD & flu. Source of Information: patient, family (pt's son, Constantino Boston), old records Exam Limitations: poor historian History of Present Illness: 80-year-old female, poor historian, post RUL lobectomy for squamous cell CA of the lung w/o adjuvant therapy, HTN/HLD/DM/hypoT4/ASHD post AK, paroxysmal atrial fibrillation on outpatient Eliquis & Amiodarone, 08/08/2008: post sigmoid resection for large sigmoid exxqurnsjfxsjr-wt-yxsw, without any invasive component, lymph node negative, which was too large to remove via 07/27/2008: colonoscopy. (There is no FHx of colon Ca, but her mother may have had gastric Ca). 02/10/2010: Colonoscopy to the cecum- post sigmoid resection with clean anastomosis at 20 cm, tiny hyperplastic polyps, moderate pandiverticulosis coli left side greater than right, with only fair prep after a gallon of TriLyte. In view of the above and the history of an advanced adenoma, I advised a follow-up colonoscopy was advised 2 years later, namely for 02/2012; however, the patient was not compliant with this. 02/04/2014: Covering EGD by Dr. Gerald Maldonado- mild gastritis, H. pylori-negative, CHULA brushings of esophagus positive (? Diflucan rxd). 02/05/2014: Attempted colonoscopy to 10 cm- terminated because of stool. 02/06/2014: Colonoscopy to TI- clean surgical anastomosis at 18 cm, post sigmoid resection, pandiverticulosis coli, normal TI, without any angiodysplasias or recurrent polyps or lesions. Patient had intermittent anemia and OB positive stool then. Her anticoagulation therapy was resumed at that point. Apparently, she saw Dr. Walter Maldonado for outpatient GI f/u after that [facility] D/C & a decision was made to defer a PillCam unless her anemia recurred. Her other numerous issues include COPD on home O2-2L nc Qhs, spinal cord injury reportedly wheelchair-bound with (waist down) B/L lower extremity paraplegia, diastolic CHF, cardiac stent placement (?type) vs. RCA PTCA in 05/2014, lactose intolerance, APPY, CCKY, cataract surgery, tubal ligation & hx epistaxis. The patient has had numerous admissions for intermittent OB positive stool and multifactorial anemia. *Outpatient PillCam has never been done. She was last admitted to [facility] 05/05/2015 - 05/07/2015, with exacerbation of COPD, hypertension, & UTI. The patient presented to the [facility] ER 05/27/2016 at 12:15 p.m., complaining of cough productive of yellowish sputum and symptoms of URI, congestion & wheezing. Upon arrival, BP 153/75, P 65, R 22, T 98.6, O2 sat RA 93%. She had some mild nausea and vomiting, with bilious contents. There was no overt GI bleeding, hematemesis, or melena. She denied any GERD, odynophagia, dysphagia, or early satiety. 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 She denied any fevers or chills, but was more short of breath than usual. There was no chest pain. She denied any abdominal pain (her story changed from time to time). She reportedly had diarrhea over week ago, which resolved, without any constipation, obstipation, or tenesmus. *There was no documented hypotension. Her transaminases (AST/ALT), were subsequently found to be significantly elevated, prompting the GI consult. *Please note, in addition to Amiodarone, she was on outpatient Atorvastatin. *The AST/ALT (162/167), were minimally elevated in the [facility] ER , in the setting of elevated BNP 62929. She denied any jaundice, dark urine, light stool, or pruritus. She denied any NSAID or Tylenol use. A flu swab was positive for acute influenza. There was no evidence of pneumonia on chest x-ray, just COPD and old RLL resection. She was started on Tamiflu, per the medical team. She remotely had mild amounts of alcohol, none recently. She is an ex [id number] cigarette smoker, stopping 1998. She denied any known history of previous viral hepatitis. She has been transfused in the past. There is no history of needle sticks, tattoos, or IVDA. She denied any recent travel, herbal medications, or raw foods. There were no definite myalgias or acute arthralgias. There was no acute rash. She denied any symptoms of UTI. The patient was given Prednisone, Albuterol, Atrovent, Ceftriaxone, & Azithromycin in the ER. *Imaging studies of the RUQ on admission, per ER- negative post cholecystectomy. *I also requested Doppler studies of the HV/PV, which were negative. 05/27/2016: *Rapid viral influenza A/B- nasopharyngeal swab- *positive influenza type A. 05/27/2016: BC x 2- pending. 05/27/2016: Admission labs- WBC 10.8 (77% gran/8 gran Ab), H/H 10.4/31.5, normal MCV 85.8, elevated RDW 19.4, PLT 400, PT 25.6, INR 2.46, PTT 37, glucose 86, BUN /Cr 16/0.7, GFR > 60, Na 133, K 4.1, HCO3 27, AG 11, albumin 3.6, glob 3.5, TBil 1.1, alk phos 123, *AST 2312, *ALT 1633, troponin 0.04, *[Tylenol] < 10, elevated BNP 7110. 05/27/2016: EKG- NSR @ 62, LBBB, multifocal PVC. 05/27/2016: XRY-CHEST XRAY, PA AND LATERAL- There are are chronic changes in the right lung consistent with the history of prior right upper lobectomy. There is a streaky parenchymal opacity in the left midlung zone which is new or more prominent compared to prior study and could represent an area of subsegmental atelectasis. No dense consolidation is seen and there is no other change. 05/27/2016: US ABDOMEN (RUQ) LIMITED- 1. Status post CCKY with no evidence of intra or extrahepatic biliary ductal dilatation. CBD 4 mm. Normal liver. 2. Incomplete view of the pancreatic head and tail. Visualized portions of the pancreas appear atrophic, but otherwise unremarkable. 3. Exophytic upper pole right renal cyst. 4. Previously demonstrated extrarenal pelvis and dilated right ureter not seen on this exam versus resolved in the interim. 05/27/2016: HEPATIC ULTRASOUND WITH DOPPLER- Normal hepatic Doppler ultrasound with patent hepatic arteries, patent and normally directed portal veins and hepatic veins. Intrahepatic IVC patent. Allergies/Medications Allergies: Coded Allergies: amlodipine (Severe, C/P 05/27/16) codeine (Severe, C/P 05/27/16) morphine (Severe, C/P 05/27/16) omeprazole (Severe, C/P 05/27/16) Home Med List: Albuterol Sulfate/Ipratropiu (Duoneb) 3 MG/3 ML NEB 1 Vial INH/ROCIO PRN DYSPNEA (Reported) Amiodarone Hydrochloride (Amiodarone) 200 MG TAB 1 TAB PO DAILY HEART RHYTHM (Reported) Amlodipine (Norvasc 5MG Tab) 5 MG TAB 1.5 TAB PO DAILY HIGH BP Apixaban (Eliquis) 2.5 MG TAB 1 TAB PO BID BLOOD THINNER (Reported) Atorvastatin Calcium (Lipitor) 20 MG TABLET 1 TAB PO DAILY CHOLESTEROL ( Reported) Ciprofloxacin (Cipro) 500 MG TAB 1 TAB PO BID UTI Ciprofloxacin HCl (Cipro) 500 MG TABLET 1 TAB PO BID UTI Dicyclomine Hydrochloride (Bentyl) 10 MG CAPSULE 1 CAP PO TID PRN ABDOMINAL SPASMS DILTIAZEM HCL (Cardizem Cd) 120 MG CER 1 TAB PO DAILY HEART RATE (Reported) Levothyroxine Sodium 0.1 MG TAB 1 TAB PO DAILY HYPERTHYROIDISM PLEASE TAKE THIS TABLET IN AM. Lisinopril 40 MG TAB 1 TAB PO DAILY HYPERTENSION Lorazepam (Ativan) 0.5 MG TAB 1 TAB PO Q6-8P PRN ANXIETY (Reported) Magnesium Oxide 400 MG TABLET 1 TAB PO DAILY MINERAL SUPPLEMENT (Reported) METFORMIN HCL (Metformin Hydrochloride) 500 MG TABLET 1 TAB PO DAILY DIABETES MELLITUS (Reported) Metoprolol Tartrate (Lopressor) 25 MG TAB 1 TAB PO BID BLOOD PRESSURE Nystatin (Mycostatin Powder) 15 GM PWD 1 JC TOP TID PRN fungal rash Ondansetron (Zofran Odt) 4 MG TAB.RAPDIS 1 TAB SL TID PRN nausea Ondansetron (Zofran Odt) 4 MG TAB.RAPDIS 1 TAB SL TID PRN NAUSEA Prednisone 20 MG TAB 1 TAB PO DAILY SOB TRAMADOL HCL (Tramadol) 50 MG TAB 1 TAB PO TID PRN PAIN Past History Travel History Traveled to [place] past 21 day No Medical History Blood Transfusion Hx: Yes Neurological: B/L LE weakness, post spine fx/fall, intention tremor EENT: epistaxis Cardiovascular: AFIB (PAF), CAD (s/p stent to RCA vs PTCA), CHF, hypertension, hyperlipidemia, myocardial infarction Respiratory: COPD, interstitial lung disease, LUNG CA RUL LOBECTOMY O2 DEPENDENT 2-3L Gastrointestinal: lactose intolerance, [id number], SIGMOID COLECTOMY 02/13 colonoscopy fair prep - tics but no polyps 02/13- egd gastritis, DIVERTICULOSIS COLI Hepatic: NONE Renal: urinary incontinence Musculoskeletal: chronic back pain (post fall), degen joint disease, BROKEN BACK 15 YEARS AGO UNABLE TO BEAR WEIGHT Psychiatric: anxiety Endocrine: diabetes, hypothyroidism Blood Disorders: NONE (chronic), anemia Cancer(s): lung cancer (s/p RUL lobectomy SC Ca), AdenoCa in situ- sigmoid resection 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 , Age 70. FHx: stomach cancer FATHER ("some type of Ca"- not colon Ca). , Age 63. FH: cancer BROTHER FH: prostate cancer Psychosocial History Where Do You Live? Home Who Do You Live With? child, SHE LIVES WITH HER DAUGHTER Services at Home: Nursing, Oxygen Primary Language: Yakut Smoking Status: Former Smoker ETOH Use: denies use Illicit Drug Use: denies illicit drug use Living Will? yes (DNR/DNI) Power of Vamp Wetter/HCP? yes Name of POA/HCP: Pt's son, Constantino Boston Other Social History: . Lives with her daughter. 4 children, A&W (2 sons & 2 dtrs). Pt's son, Constantino Boston, is identified as POA. Ex 15 pk yr cigarettee smoker, D/C 1998. Minimal EtOH in past, none recently. No drugs or IVDA. No tattoos. 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 Ambulation: non-ambulatory (W/C) IADLs Needs Assist: shopping, housework, finances, food prep, telephone, transportation, medication admin. 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 EENTM: Denies: blurred vision, double vision, visual changes, eye pain, eye drainage, eye tearing, icterus, ear discharge, ear pain, ear redness, hearing changes, nasal congestion, epistaxis, nasal pain, throat pain, throat swelling, mouth pain, tooth pain. Cardiovascular: Denies: chest pain, edema, orthopena, palpitations, peripheral edema, syncope. Respiratory: Reports: cough (yellow sputum), short of breath, sputum production, wheezing. Denies: hemoptysis, orthopnea, stridor. GI: Reports: nausea, vomiting. Denies: abdominal pain, bloating, constipation, diarrhea, distention, bowel incontinence, melena, bloody stool, changes in stool , steatorrhea. Genitourinary: Denies: discharge, dysuria, frequency, hematuria, hesitation, nocturia, pain, urgency. Musculoskeletal: Reports: back pain. Denies: gout, joint pain, joint swelling, muscle pain, muscle stiffness, neck pain. Skin: Denies: cysts, change in skin color, change in hair/nails, dryness, erythema, jaundice, lesions, lymphangitis, lumps, moles, rash. Neurological/Psychological: Reports: anxiety, emotional problems, tremors (intention), unable to move lower ext. Denies: ataxia, cognitive dysfunction, confusion, depressed, dementia, headache, numbness, paresthesia, pre-existing deficit, petit mal seizures, tingling, tonic-clonic seizures, unable to move upper ext, weakness. Hematologic/Endocrine: Reports: bruising. Denies: bleeding, polyuria, polydipsia. Immunologic/Allergic: Denies: splenectomy, HIV/AIDS, lymphadenopathy. All Other Systems: Reviewed and Negative Exam & Diagnostic Data Vital Signs and I&O Vital Signs Date Time Temp Pulse Resp B/P Pulse O2 O2 Flow FiO2 Ox Delivery Rate 0225 2152 68 162/74 05/277 98.2 62 18 162/70 96 Room Air 05/27 1923 60 20 163/70 98 Nasal 2.0L Cannula 05/27 192 60 163/70 05/27 1508 98.2 62 20 148/72 94 Room Air 05/27 1338 98 Nasal 2.0L Cannula 05/27 1222 98.6 65 22 153/75 93 Room Air Intake & Output 05/27 1600 05/27 0400 05/26 0400 05/25 040 Intake Total Output Total Balance Patient 135 lb Weight Physical Exam: Well-developed, chronically ill-appearing, elderly female in minimal distress, mildly tachypneic. Sclera anicteric. Conjunctiva pink. Oropharynx clear. No oral thrush. No aphthous ulcers. No stridor. There is no adenopathy, thyromegaly, or JVD. No HJR. No peripheral stigmata of inflammatory bowel disease or chronic liver disease on exam. No spiders on the anterior chest wall. No CVA tenderness. Lungs: Scattered bilateral end expiratory wheezing & a few scattered rhonchi. No definite egophony. No rales. Slight decreased breath sounds RUL. Heart exam: regular rate rhythm, S1 and S2, with I/ systolic murmur. Breast and pelvic exams: API. Abdominal exam: normal bowel sounds, soft belly, nontender, without guarding or rebound. No mass. No organomegaly. No fluid shift. No pulsatile mass. No epigastric bruits. Multiple well-healed scars. Digital rectal exam: deferred by patient. Extremities: without C, C, or E. No palpable cords. No palmar erythema. No Dupuytren's contractures. Distal pulses 2+ bilaterally. DTRs 2+ bilaterally. + Intention tremor. Unable to move legs B/L. Alert and oriented x 3, but poor historian. No asterixis. Results Pertinent Lab Results: Laboratory Tests 05/27 1300 Chemistry Sodium (137 - 145 mmol/L) 133 L Potassium (3.5 - 5.1 mmol/L) 4.1 Chloride (98 - 107 mmol/L) 95 L Carbon Dioxide (22 - 30 mmol/L) 27 Anion Gap (5 - 16) 11 BUN (7 - 17 mg/dL) 16 Creatinine (0.5 - 1.0 mg/dL) 0.7 Estimated GFR (>60 ml/min) > 60 BUN/Creatinine Ratio (7 - 25 %) 22.9 Glucose (65 - 99 mg/dL) 86 Calcium (8.4 - 10.2 mg/dL) 8.8 Total Bilirubin (0.2 - 1.3 mg/dL) 1.1 AST (14 - 36 U/L) 2312 H ALT (9 - 52 U/L) 1633 H Alkaline Phosphatase (<127 U/L) 123 Troponin I (< 0.11 ng/ml) 0.04 Dlj-X-Dzhcanbbxvs Pept (<125 pg/mL) 7110 H Total Protein (6.3 - 8.2 g/dL) 7.1 Albumin (3.5 - 5.0 g/dL) 3.6 Globulin (1.9 - 4.2 gm/dL) 3.5 Albumin/Globulin Ratio (1.1 - 2.2 %) 1.0 L Coagulation PT (9.4 - 12.5 SEC) 25.6 H INR (0.90 - 1.19) 2.46 H APTT (25 - 37 SEC) 37 Hematology CBC w Diff NO MAN DIFF REQ WBC (4.8 - 10.8 /CUMM) 10.8 RBC (4.20 - 5.40 /CUMM) 3.67 L Hgb (12.0 - 16.0 G/DL) 10.4 L Hct (37 - 47 %) 31.5 L MCV (81.0 - 99.0 FL) 85.8 MCH (27.0 - 31.0 PG) 28.2 RDW (11.5 - 14.5 %) 19.4 H Plt Count (130 - 400 /CUMM) 400 MPV (7.4 - 10.4 FL) 7.6 Gran % (42.2 - 75.2 %) 77.3 H Lymphocytes % (20.5 - 51.1 %) 17.7 L Monocytes % (1.7 - 9.3 %) 4.1 Eosinophils % (0 - 5 %) 0.5 Basophils % (0.0 - 2.0 %) 0.4 Absolute Granulocytes (1.4 - 6.5 /CUMM) 8.4 H Absolute Lymphocytes (1.2 - 3.4 /CUMM) 1.9 Absolute Monocytes (0.10 - 0.60 /CUMM) 0.4 Absolute Eosinophils (0.0 - 0.7 /CUMM) 0.1 Absolute Basophils (0.0 - 0.2 /CUMM) 0 PUBS MCHC (33.0 - 37.0 G/DL) 32.8 L Serology Hepatitis A IgM Ab (NONREACTIVE) Pending Hep Bs Antigen (NONREACTIVE) Pending Hep B Core IgM Ab Conf (NONREACTIVE) Pending Hepatitis C Antibody (NONREACTIVE) Pending Toxicology Acetaminophen (10.0 - 30.0 ug/mL) < 10.0 L Imaging/Other Studies: 05/27/2016: EKG- NSR @ 62, LBBB, multifocal PVC. 05/27/2016: XRY-CHEST XRAY, PA AND LATERAL- There are are chronic changes in the right lung consistent with the history of prior right upper lobectomy. There is a streaky parenchymal opacity in the left midlung zone which is new or more prominent compared to prior study and could represent an area of subsegmental atelectasis. No dense consolidation is seen and there is no other change. 05/27/2016: US ABDOMEN (RUQ) LIMITED- 1. Status post CCKY with no evidence of intra or extrahepatic biliary ductal dilatation. CBD 4 mm. Normal liver. 2. Incomplete view of the pancreatic head and tail. Visualized portions of the pancreas appear atrophic, but otherwise unremarkable. 3. Exophytic upper pole right renal cyst. 4. Previously demonstrated extrarenal pelvis and dilated right ureter not seen on this exam versus resolved in the interim. 05/27/2016: HEPATIC ULTRASOUND WITH DOPPLER- Normal hepatic Doppler ultrasound with patent hepatic arteries, patent and normally directed portal veins and hepatic veins. Intrahepatic IVC patent. Assessment/Plan Assessment/Recommendations: 80-year-old female, poor historian, post RUL lobectomy for squamous cell CA of the lung w/o adjuvant therapy, HTN/HLD/DM/hypoT4/ASHD post AK, paroxysmal atrial fibrillation on outpatient Eliquis & Amiodarone, 08/08/2008: post sigmoid resection for large sigmoid phihhppcnbqlzb-yw-brvb, without any invasive component, lymph node negative, which was too large to remove via 07/27/2008: colonoscopy. (There is no FHx of colon Ca, but her mother may have had gastric Ca). 02/10/2010: Colonoscopy to the cecum- post sigmoid resection with clean anastomosis at 20 cm, tiny hyperplastic polyps, moderate pandiverticulosis coli left side greater than right, with only fair prep after a gallon of TriLyte. In view of the above and the history of an advanced adenoma, I advised a follow-up colonoscopy was advised 2 years later, namely for 02/2012; however, the patient was not compliant with this. 02/04/2014: Covering EGD by Dr. Gerald Maldonado- mild gastritis, H. pylori-negative, CHULA brushings of esophagus positive (? Diflucan rxd). 02/05/2014: Attempted colonoscopy to 10 cm- terminated because of stool. 02/06/2014: Colonoscopy to TI- clean surgical anastomosis at 18 cm, post sigmoid resection, pandiverticulosis coli, normal TI, without any angiodysplasias or recurrent polyps or lesions. Patient had intermittent anemia and OB positive stool then. Her anticoagulation therapy was resumed at that point. Apparently, she saw Dr. Walter Maldonado for outpatient GI f/u after that [facility] D/C & a decision was made to defer a PillCam unless her anemia recurred. Her other numerous issues include COPD on home O2-2L nc Qhs, spinal cord injury reportedly wheelchair-bound with (waist down) B/L lower extremity paraplegia, diastolic CHF, cardiac stent placement (?type) vs. RCA PTCA in 05/2014, lactose intolerance, APPY, CCKY, cataract surgery, tubal ligation & hx epistaxis. The patient has had numerous admissions for intermittent OB positive stool and multifactorial anemia. *Outpatient PillCam has never been done. She was last admitted to [facility] 05/05/2015 - 05/07/2015, with exacerbation of COPD, hypertension, & UTI. The patient presented to the [facility] ER 05/27/2016 at 12:15 p.m., complaining of cough productive of yellowish sputum and symptoms of URI, congestion & wheezing. Upon arrival, BP 153/75, P 65, R 22, T 98.6, O2 sat RA 93%. She had some mild nausea and vomiting, with bilious contents. There was no overt GI bleeding, hematemesis, or melena. She denied any GERD, odynophagia, dysphagia, or early satiety. 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 She denied any fevers or chills, but was more short of breath than usual. There was no chest pain. She denied any abdominal pain (her story changed from time to time). She reportedly had diarrhea over week ago, which resolved, without any constipation, obstipation, or tenesmus. *There was no documented hypotension. Her transaminases (AST/ALT), were subsequently found to be significantly elevated, prompting the GI consult. *Please note, in addition to Amiodarone, she was on outpatient Atorvastatin. *The AST/ALT (162/167), were minimally elevated in the [facility] ER , in the setting of elevated BNP 25061. She denied any jaundice, dark urine, light stool, or pruritus. She denied any NSAID or Tylenol use. A flu swab was positive for acute influenza. There was no evidence of pneumonia on chest x-ray, just COPD and old RLL resection. She was started on Tamiflu, per the medical team. She remotely had mild amounts of alcohol, none recently. She is an ex [id number]-pyte cigarette smoker, stopping 1998. She denied any known history of previous viral hepatitis. She has been transfused in the past. There is no history of needle sticks, tattoos, or IVDA. She denied any recent travel, herbal medications, or raw foods. There were no definite myalgias or acute arthralgias. There was no acute rash. She denied any symptoms of UTI. The patient was given Prednisone, Albuterol, Atrovent, Ceftriaxone, & Azithromycin in the ER. *Imaging studies of the RUQ on admission, per ER- negative post cholecystectomy. *I also requested Doppler studies of the HV/PV, which were negative. 05/27/2016: *Rapid viral influenza A/B- nasopharyngeal swab- *positive influenza type A. 05/27/2016: BC x 2- pending. 05/27/2016: Admission labs- WBC 10.8 (77% gran/8 gran Ab), H/H 10.4/31.5, normal MCV 85.8, elevated RDW 19.4, PLT 400, PT 25.6, INR 2.46, PTT 37, glucose 86, BUN /Cr 16/0.7, GFR > 60, Na 133, K 4.1, HCO3 27, AG 11, albumin 3.6, glob 3.5, TBil 1.1, alk phos 123, *AST 2312, *ALT 1633, troponin 0.04, *[Tylenol] < 10, elevated BNP 7110. 05/27/2016: EKG- NSR @ 62, LBBB, multifocal PVC. 05/27/2016: XRY-CHEST XRAY, PA AND LATERAL- There are are chronic changes in the right lung consistent with the history of prior right upper lobectomy. There is a streaky parenchymal opacity in the left midlung zone which is new or more prominent compared to prior study and could represent an area of subsegmental atelectasis. No dense consolidation is seen and there is no other change. 05/27/2016: US ABDOMEN (RUQ) LIMITED- 1. Status post CCKY with no evidence of intra or extrahepatic biliary ductal dilatation. CBD 4 mm. Normal liver. 2. Incomplete view of the pancreatic head and tail. Visualized portions of the pancreas appear atrophic, but otherwise unremarkable. 3. Exophytic upper pole right renal cyst. 4. Previously demonstrated extrarenal pelvis and dilated right ureter not seen on this exam versus resolved in the interim. 05/27/2016: HEPATIC ULTRASOUND WITH DOPPLER- Normal hepatic Doppler ultrasound with patent hepatic arteries, patent and normally directed portal veins and hepatic veins. Intrahepatic IVC patent. *The significantly elevated transaminases (AST/ALT 2312/1633) on admission 05/27, are noted, which seem incidental in nature, as the patient had no GI symptoms, except for some mild nausea and vomiting. She has a benign abdominal exam. She was admitted primarily for a flare of COPD and influenza. There was no documented hypotension to suggest "shock liver" (i.e.- ischemic hepatitis). Although her BNP is somewhat elevated 7110, there is no overt CHF on the admission chest x-ray. Her level of transaminase elevation is higher than one would expect with passive congestion, anyway. Her Tylenol level is < 10. There is no significant EtOH, and the height & pattern of the transaminases are atypical for this. Rule out viral hepatitis, especially with positive influenza A. Rule out medication-induced (i.e.- Amiodarone/Atorvastatin). Consider a component of skeletal muscle inflammation. Doubt AIH. *RUQ sono/ Doppler HV/PV- negative for any acute pathology, post CCKY. No evidence of vascular occlusion or Budd-Chiari syndrome. *SUGGEST: *Serial LFTs & INR. *Check full Hep A, B, & C serologies, EBV/CMV, mono spot, LORIE, Aldolase, CK. *If okay with cardiology, would hold Amiodarone & Atorvastatin for now, until transaminases hopefully resolve. *Check with cardiology regarding potentially holding Eliquis for now, as there is a chance her INR will rise independent of the Eliquis, due to the transaminitis. Treatment of COPD and influenza as per medical team. Although the patient has a history of an advanced colon adenoma requiring surgical resection, in view of her advanced age and numerous comorbidities, probably no need for repeat surveillance colonoscopy, as it was last clean on 02/06/2014. The case was discussed with the medical house staff. Further recommendations to follow, based on clinical course. Problem List: 1. Transaminitis 2. Influenza A 3. Anemia 4. History of colon cancer 5. Diverticulosis of colon Copies To: GLORIA VENCES,BEHZAD Reaves; DIVYA VENCES,MARCI Cazares; PACSUAL VENCES,SARKIS Cline; YOVANNY VENCES,YUDITH Mora JR; ALEC VENCES PhD,COMPA Son Consult Acknowledgment - Thank you for your consult request.
[2016-05-27 21:27] VITALS: BP 162/70
--- NOTE | 2016-05-28 07:21 | PN- Att Addend ---
Attending Addendum Attending Brief Note Patient says she feels lousy. She doesn't feel up to eating but wants to try. On physical exam blood pressure is 160/70, pulse is 68, afebrile, 96% on 2 L. She is awake alert and oriented, and lungs decreased breath sounds with some coarse rhonchi, heart S1-S2 is regular, abdomen is soft nontender there is no stigmata of chronic liver disease, she is paraplegic with some edema in her lower extremities. She has no asterixis and she is mentating well. Labs are all pending. She is an 80-year-old female with multiple medical problems including chronic respiratory failure on 2 L of oxygen chronically, diastolic heart failure and A. fib on amiodarone, Eliquis and coronary artery disease. 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 She is here with acute influenza. She has no evidence of pneumonia and her O2 requirement is not higher so we are not treating her for a superimposed bacterial pneumonia, just treating her with Tamiflu. Incidentally noted transaminitis with transaminases in the thousands. We think the most likely etiology is drug-induced liver disease given the ultrasound was negative and appreciate GI follow-up. There doesn't appear to be any Tylenol component or any thrombosis of the hepatic veins. We'll closely follow the transaminitis today. We have kept on the metoprolol and Cardizem but we've held the amiodarone for now. The coagulopathy is hard to interpret in the setting of Eliquis and will need to be followed closely.
[2016-05-28 08:03] LABS: ABSOLUTE BASOPHIL COUNT 0 /CUMM (0.0-0.2); ABSOLUTE EOSINOPHIL COUNT 0 /CUMM (0.0-0.7); ABSOLUTE GRANULOCYTE CT 6.1 /CUMM (1.4-6.5); ABSOLUTE LYMPH COUNT 1.7 /CUMM (1.2-3.4); ABSOLUTE MONOCYTE COUNT 0.5 /CUMM (0.10-0.60); BASOPHIL % 0.2 % (0.0-2.0); EOSINOPHIL % 0.3 % (0-5); GRANULOCYTE % 73.1 % (42.2-75.2); HEMATOCRIT 28.6 % (37-47); MEAN CORPUSCULAR HGB 28.4 PG (27.0-31.0); MEAN CORPUSCULAR HGB CONC 33.3 G/DL (33.0-37.0); MEAN CORPUSCULAR VOLUME 85.3 FL (81.0-99.0); MEAN PLATELET VOLUME 7.8 FL (7.4-10.4); PLATELET COUNT 361 /CUMM (130-400); RBC DISTRIBUTION WIDTH 19.4 % (11.5-14.5); RED BLOOD CELL CT 3.35 /CUMM (4.20-5.40); WHITE BLOOD CELL COUNT 8.3 /CUMM (4.8-10.8)
--- NOTE | 2016-05-28 08:13 | PN- Housestaff ---
See Addendum Subjective Follow-up For: flu transaminitis Tele-Events Since Last Visit: sb, sr, rate 56-62 first degree heart block bbb Subjective: pt was seen this morning, she was on 2l o2 which is her home o2 requirement. she reports shortness of breath when she sits up, relieved when she is lying flat. she is no longer nauseous. of note her qtc is prolonged at 532, would get repeat ekg before giving zofran if pt gets nauseous again. she denies myalgia but reports chronic leg pain. her RUQ was tender to palpation. Dr. Carlin has seen the patient and his recommendations have been followed. will follow up results. still awaiting cardio input on holding amiodarone/statin/eliquis. I have spoken to Dr. Hager this morning and he plans on seeing the pt today. her cough has not improved, but she longer have sputum production. Review of Systems Constitutional: Reports: see HPI. Objective Last 24 Hrs of Vital Signs/I&O Vital Signs Date Time Temp Pulse Resp B/P Pulse O2 O2 Flow FiO2 Ox Delivery Rate 05/28 1246 Nasal 2.0L Cannula 05/28 1245 96 Nasal 2.0L Cannula 05/28 0815 98.6 63 20 170/80 96 Nasal 2.0L Cannula 05/28 0804 72 174/82 05/28 0803 72 174/82 05/28 0800 Nasal 2.0L Cannula 05/27 2152 68 162/74 05/27 2127 98.2 62 18 162/70 96 Room Air 05/27 2100 Nasal 2.0L Cannula 05/27 1924 60 20 163/70 98 Nasal 2.0L Cannula 05/27 1923 60 163/70 05/27 1508 98.2 62 20 148/72 94 Room Air Intake & Output 05/28 1600 05/28 0800 05/28 0000 Intake Total 250 550 Output Total Balance 250 550 Intake, IV 0 300 Intake, Oral 250 250 Number 1 1 1 Bowel Movements Patient 58.967 kg Weight Physical Exam General Appearance: Alert, Oriented X3, Cooperative, Mild Distress Skin: No Significant Lesion Cardiovascular: Regular Rate, Normal S1, Normal S2 Lungs: Clear to Auscultation, Normal Air Movement Abdomen: Normal Bowel Sounds, Soft, tender RUQ Neurological: Normal Speech Extremities: No Edema Vascular: Normal Pulses, Pulses Symmetrical Current Medications: Current Medications Sig/Jonel Start time Last Medication Dose Route Stop Time Status Admin Albuterol Sulfate 3 ML BID 05/28 2200 AC 05/28 INH 1244 Albuterol Sulfate 3 ML Q6 PRN 05/27 1815 CAN INH Amlodipine Besylate 7.5 MG DAILY 05/28 1000 CAN PO Apixaban 2.5 MG BID 05/27 2200 AC 05/28 PO 0804 Azithromycin 500 MG ONCE ONE 05/27 1545 DC 05/27 Dextrose/Water 250 ML IV 05/27 1644 1608 Ceftriaxone Sodium 0 .STK-MED ONE 05/27 1551 DC .ROUTE Ceftriaxone Sodium 1,000 MG ONCE ONE 05/27 1545 DC 05/27 IV 05/27 1546 1608 Diltiazem HCl 120 MG DAILY 05/27 1813 AC 05/28 PO 0804 Insulin Aspart 0 TIDAC 05/28 0800 AC SC Ipratropium Weston 2.5 ML BID 05/28 2200 AC 05/28 INH 1243 Levothyroxine Sodium 0.1 MG DAILY AC 05/28 0700 AC 05/28 PO 0635 Lisinopril 40 MG DAILY 05/27 1815 AC 05/28 PO 0803 Magnesium Oxide 400 MG DAILY 05/28 1000 AC 05/28 PO 0804 Metoprolol Tartrate 25 MG BID 05/27 2200 AC 05/28 PO 0804 Oseltamivir Phosphate 30 MG BID 05/27 2200 AC 05/28 PO 03 2159 0804 Sodium Chloride 1,000 ML .[id number] 05/27 1800 DC 05/27 IV 05/28 0719 1800 Trimethobenzamide HCl 200 MG TIDPRN PRN 05/27 2330 AC 05/28 IM 1051 Last 24 Hrs of Lab/Twan Results Last 24 Hrs of Labs/Mics: Laboratory Tests 05/28/16 0724: Anion Gap 6, Estimated GFR > 60, BUN/Creatinine Ratio 21.4, Total Bilirubin 0.8, Direct Bilirubin 0.8 H, AST 2553 H, ALT 2148 H, Alkaline Phosphatase 114, Creatine Kinase 91, Total Protein 6.1 L, Albumin 3.0 L, CBC w Diff NO MAN DIFF REQ, RBC 3.35 L, MCV 85.3, MCH 28.4, RDW 19.4 H, MPV 7.8, Gran % 73.1, Lymphocytes % 20.7, Monocytes % 5.7, Eosinophils % 0.3, Basophils % 0.2, Absolute Granulocytes 6.1, Absolute Lymphocytes 1.7, Absolute Monocytes 0.5, Absolute Eosinophils 0, Absolute Basophils 0, PUBS MCHC 33.3, LORIE Titer Pending, Anti-Nuclear Antibody Pending 05/27/16 1816: Total Bilirubin Cancelled, Direct Bilirubin Cancelled, AST Cancelled, ALT Cancelled, Alkaline Phosphatase Cancelled, Total Protein Cancelled, Albumin Cancelled 05/27/16 1620: Virus Culture Pending Microbiology 05/27 1620 NASOPHARYN: Influenza Virus A & B Rapid Smear - COMP INFLUENZA TYPE A 05/27 1556 BLOOD: Blood Culture - RES Assessment/Plan Assessment: 80 year old paraplegic woman with past medical history of COPD on 2 L of home oxygen, hypertension, [place] of colon s/p status post sigmoid resection 2008 , diastolic heart disease, CAD, MS s/p angioplasty,paroxysmal atrial fibrillation on Eliquis, 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 afebrile, labs pertinant for transaminitis, hypernatremia, flu swab positive for influenza A, CXR shows no evidence of pneumonia. Abd US shows that she status post cholecystectomy with no biliary ductal dilatation and no masses. Problem list: Influenza transaminits hypovolemic hypernatremia COPD exacerbation PAF CAD HTN h/o of colon cancer h/o of lung cancer HFpEF Hypothyroidism Diabetes Plan: TRC/nebs tamiflu 75 mg BID for 7 days She has been on amiodarone since August 2014 and has had previous history of amidarone toxicity. As drug toxicity is highly likely and we will be holding amiodarone, Cardio consulted. Spoke to Dr. Posadas who is recomending she be admitted to the tele floor for continuous cardiac monitoring. HOLD eliquis, amiodarone, and atorvastatin. Continue toprol and cardizem. If she goes back to a fib, will address need for anticoagulation at that point. Serial lft and INR f/u results for EBV/CMV, mono spot, LORIE, Aldolase, CK Last Echo in 2014 shows EF of 55% Stated that her lasix was stopped by Dr. Langley one year ago US r/o biliary pathology and she is s/p cholecystectomy. GI aware of patient Will hold all hepatoxic med such as lipitor,tramadol, zofran holding zofran for [id number]. would give tigan or get repeat ekg if pt nauseous will continue her ELiqius, lisinopril, lopressor, levothryoxine. hold metformin while admitted, monitor fingersticks, start insulin sliding scale Diet: CC3 DVT prophylaxis with eliquis DNR/DNI pain pathway: will hold off due to her transaminitis, she is allergic to morphine and codeine Problem List: 1. Influenza A 2. Transaminitis Pain Ratin Pain Location: RUQ only on palpation Pain Goal: Pain 4 or less Pain Plan: none Tomorrow's Labs & Rationales: cbc for dropping hb bep for hyponatremia LFT and INR for transaminitis DVT/Prophylaxis: mechanical, pharmacological
[2016-05-28 08:15] VITALS: BP 170/80
--- NOTE | 2016-05-28 11:54 | NUR ---
1130 PT NAUSEOUS AT THIS TIME. TIGAN ADMINISTERED.
--- NOTE | 2016-05-28 13:14 | PN- Gastroenterology ---
Assessment/Plan Assessment/Recommendations: 80-year-old female, poor historian, post RUL lobectomy for squamous cell CA of the lung w/o adjuvant therapy, HTN/HLD/DM/hypoT4/ASHD post RI, paroxysmal atrial fibrillation on outpatient Eliquis & Amiodarone, 08/08/2008: post sigmoid resection for large sigmoid [id number], without any invasive component, lymph node negative, which was too large to remove via 07/27/2008: colonoscopy. (There is no FHx of colon Ca, but her mother may have had gastric Ca). 02/10/2010: Colonoscopy to the cecum- post sigmoid resection with clean anastomosis at 20 cm, tiny hyperplastic polyps, moderate pandiverticulosis coli left side greater than right, with only fair prep after a gallon of TriLyte. In view of the above and the history of an advanced adenoma, I advised a follow-up colonoscopy was advised 2 years later, namely for 02/2012; however, the patient was not compliant with this. 02/04/2014: Covering EGD by Dr. Gerald Maldonado- mild gastritis, H. pylori-negative, CHULA brushings of esophagus positive (? Diflucan rxd). 02/05/2014: Attempted colonoscopy to 10 cm- terminated because of stool. 02/06/2014: Colonoscopy to TI- clean surgical anastomosis at 18 cm, post sigmoid resection, pandiverticulosis coli, normal TI, without any angiodysplasias or recurrent polyps or lesions. Patient had intermittent anemia and OB positive stool then. Her anticoagulation therapy was resumed at that point. Apparently, she saw Dr. Walter Maldonado for outpatient GI f/u after that [facility] & a decision was made to defer a PillCam unless her anemia recurred. 01/17/2012: nl IgA 382, tTG Ab- negative Her other numerous issues include COPD on home O2-2L nc Qhs, spinal cord injury reportedly wheelchair-bound with (waist down) B/L lower extremity paraplegia, diastolic CHF, cardiac stent placement (?type) vs. RCA PTCA in 05/2014, lactose intolerance, APPY, CCKY, cataract surgery, tubal ligation & hx epistaxis. The patient has had numerous admissions for intermittent OB positive stool and multifactorial anemia. *Outpatient PillCam has never been done. She was last admitted to [facility] 05/05/2015 - 05/07/2015, with exacerbation of COPD, hypertension, & UTI. The patient presented to the [facility] 05/27/2016 at 12:15 p.m., complaining of cough productive of yellowish sputum and symptoms of URI, congestion & wheezing. Upon arrival, BP 153/75, P 65, R 22, T 98.6, O2 sat RA 93%. She had some mild nausea and vomiting, with bilious contents. There was no overt GI bleeding, hematemesis, or melena. She denied any GERD, odynophagia, dysphagia, or early satiety. She had decreased po intake for 2 days AFTER [employer]. She denied any fevers or chills, but was more short of breath than usual. There was no chest pain. She denied any abdominal pain (her story changed from time to time). She reportedly had diarrhea over week ago, which resolved, without any constipation, obstipation, or tenesmus. *There was no documented hypotension. Her transaminases (AST/ALT), were subsequently found to be significantly elevated, prompting the GI consult. *Please note, in addition to Amiodarone, she was on outpatient Atorvastatin. *The AST/ALT (162/167), were minimally elevated in the [facility] , in the setting of elevated BNP 05898. She denied any jaundice, dark urine, light stool, or pruritus. She denied any NSAID or Tylenol use. A flu swab was positive for acute influenza. There was no evidence of pneumonia on chest x-ray, just COPD and old RLL resection. She was started on Tamiflu, per the medical team. She remotely had mild amounts of alcohol, none recently. She is an ex [id number] cigarette smoker, stopping 1998. She denied any known history of previous viral hepatitis. She has been transfused in the past. There is no history of needle sticks, tattoos, or IVDA. She denied any recent travel, herbal medications, or raw foods. There were no definite myalgias or acute arthralgias. There was no acute rash. She denied any symptoms of UTI. The patient was given Prednisone, Albuterol, Atrovent, Ceftriaxone, & Azithromycin in the ER. *Imaging studies of the RUQ on admission, per ER- negative post cholecystectomy. *I also requested Doppler studies of the HV/PV, which were negative. 05/27/2016: *Rapid viral influenza A/B- nasopharyngeal swab- *positive influenza type A. 05/27/2016: BC x 2- negative x 1 day. 05/27/2016: Admission labs- WBC 10.8 (77% gran/8 gran Ab), H/H 10.4/31.5, normal MCV 85.8, elevated RDW 19.4, PLT 400, PT 25.6, INR 2.46, PTT 37, glucose 86, BUN /Cr 16/0.7, GFR > 60, Na 133, K 4.1, HCO3 27, AG 11, albumin 3.6, glob 3.5, TBil 1.1, alk phos 123, *AST 2312, *ALT 1633, troponin 0.04, *[Tylenol] < 10, elevated BNP 7110. 05/27/2016: EKG- NSR @ 62, LBBB, multifocal PVC. 05/27/2016: XRY-CHEST XRAY, PA AND LATERAL- There are are chronic changes in the right lung consistent with the history of prior right upper lobectomy. There is a streaky parenchymal opacity in the left midlung zone which is new or more prominent compared to prior study and could represent an area of subsegmental atelectasis. No dense consolidation is seen and there is no other change. 05/27/2016: US ABDOMEN (RUQ) LIMITED- 1. Status post CCKY with no evidence of intra or extrahepatic biliary ductal dilatation. CBD 4 mm. Normal liver. 2. Incomplete view of the pancreatic head and tail. Visualized portions of the pancreas appear atrophic, but otherwise unremarkable. 3. Exophytic upper pole right renal cyst. 4. Previously demonstrated extrarenal pelvis and dilated right ureter not seen on this exam versus resolved in the interim. 05/27/2016: HEPATIC ULTRASOUND WITH DOPPLER- Normal hepatic Doppler ultrasound with patent hepatic arteries, patent and normally directed portal veins and hepatic veins. Intrahepatic IVC patent. The significantly elevated transaminases (AST/ALT 2312/1633) on admission , were noted, which seemed incidental in nature, as the patient had no GI symptoms, except for some mild nausea and vomiting. She had a benign abdominal exam. She was admitted primarily for a flare of COPD and influenza. There was no documented hypotension to suggest "shock liver" (i.e.- ischemic hepatitis). Although her BNP was somewhat elevated 7110, there was no overt CHF on the admission chest x-ray. Her level of transaminase elevation was higher than one would expect with passive congestion, anway. Her Tylenol level is < 10. There is no significant EtOH, and the height & pattern of the transaminases are atypical for this. Rule out viral hepatitis, especially with positive influenza A. Rule out medication-induced (i.e.- Amiodarone/Atorvastatin). * Please note, Cardizem & Toprol have been reported to cause hepatitis, but these are less likely to do so than Amiodarone and/or Atorvastatin. Consider a component of skeletal muscle inflammation. Doubt AIH. *RUQ sono/Doppler HV/PV- negative for any acute pathology, post CCKY. *No evidence of vascular occlusion or Budd-Chiari syndrome. 05/27/2016: *Hep A Ab, Hep Bs Ag, Hep C Ab, & Hep B core Ab- all negative 05/27/2016:*viral culture- pending 05/28/2016: WBC 8.3, H/H 9.5/28.6, nl MCV, PLT 361 05/28/2016: nl CK 91, albumin 3.0, globulin 3.1, TBil 0.8, DBil 0.8, alk phos 114, *AST 2553, *ALT 2148, GFR > 60 *As of 05/28/2016, the patient remained hemodynamically stable (actually HTN- not hypotensive, regarding her elevated AST/ALT), & afebrile. O2 sat 2L nc- 96%. She remained in NSR. Atorvastatin and Amiodarone were held on admission. The medical team has continued her Eliquis. She remained on Cardizem and Toprol, both of which have been reported to cause hepatitis (although not as likely as Amiodarone or Atorvastatin). Cardiology input is pending. Tamiflu was prescribed on admission. The patient remains a poor historian. Apparently, she had some mild nausea without vomiting. She is on a heart healthy, DM diet. There was no abdominal pain or diarrhea. She denied any chills or rashes. There was no jaundice. She remained with URI symptoms and some mild shortness of breath, without any chest pain. She received 1 dose of IV Ceftriaxone in the ER 2016. She never received any Azithromycin, as her respiratory symptoms were probably viral/COPD in nature. *SUGGEST: *Serial LFTs & INR daily. *Check EBV/CMV, mono spot, LORIE, & Aldolase. *Await : viral cultures. *If okay with cardiology, continue to hold Amiodarone & Atorvastatin for now, until transaminases hopefully resolve. Check with cardiology regarding potentially holding Eliquis for now, as there is a chance her INR will rise independent of the Eliquis, due to the transaminitis. *Await cardiology input regarding Cardizem & Toprol, but these are less likely to cause hepatitis than Amiodarone and/or Atorvastatin. *Consider checking for Norovirus. *Consider checking for atypical PNA (i.e.- Mycoplasma/Legionella), which can cause elevated LFTs. Doubt tick-borne illness. Treatment of COPD and influenza as per medical team. Although the patient has a history of an advanced colon adenoma requiring surgical resection, in view of her advanced age and numerous comorbidities, probably no need for repeat surveillance colonoscopy, as it was last clean on 02/06/2014. The case was previously discussed with the medical house staff & again with the patient's RN. Further recommendations to follow, based on clinical course. Problem List: 1. Transaminitis 2. Influenza A 3. Anemia 4. History of colon cancer 5. Diverticulosis of colon Subjective Subjective: 05/27/2016: *Hep A Ab, Hep Bs Ag, Hep C Ab, & Hep B core Ab- all negative 05/27/2016:*viral culture- pending 05/28/2016: WBC 8.3, H/H 9.5/28.6, nl MCV, PLT 361 05/28/2016: nl CK 91, albumin 3.0, globulin 3.1, TBil 0.8, DBil 0.8, alk phos 114, *AST 2553, *ALT 2148, GFR > 60 *As of 05/28/2016, the patient remains hemodynamically stable (actually HTN- not hypotensive, regarding her elevated AST/ALT), & afebrile. O2 sat 2L nc- 96%. She remains in NSR. Atorvastatin and Amiodarone were held on admission. The medical team has continued her Eliquis. She remains on Cardizem and Toprol, both of which have been reported to cause hepatitis (although not as likely as Amiodarone or Atorvastatin). Cardiology input is pending. Tamiflu was prescribed. The patient remains a poor historian. Apparently, she had some mild nausea without vomiting. She is on a heart healthy, DM diet. There is no abdominal pain or diarrhea. She denies any chills or rashes. There is no jaundice. She remains with URI symptoms and some mild shortness of breath, without any chest pain. She received 1 dose of IV Ceftriaxone in the ER 2016. She never received any Azithromycin, as her respiratory symptoms are probably viral in nature. Review of Systems: Full 14 point ROS otherwise noncontributory,, and as above Review of Systems Constitutional: Denies: chills, diaphoresis, fever, malaise, weakness, unexplained weight loss. EENTM: Denies: blurred vision, double vision, visual changes, eye pain, eye drainage, eye tearing, icterus, ear discharge, ear pain, ear redness, hearing changes, nasal congestion, epistaxis, nasal pain, throat pain, throat swelling, mouth pain, tooth pain. Cardiovascular: Denies: chest pain, edema, orthopena, palpitations, peripheral edema, syncope. Respiratory: Reports: cough (yellow sputum), short of breath, sputum production, wheezing. Denies: hemoptysis, orthopnea, stridor. GI: Reports: nausea (mild), vomiting (gone). Denies: abdominal pain, bloating, constipation, diarrhea, distention, bowel incontinence, melena, bloody stool, changes in stool, steatorrhea. Genitourinary: Denies: discharge, dysuria, frequency, hematuria, hesitation, nocturia, pain, urgency. Musculoskeletal: Reports: chronic back pain. Denies: gout, joint pain, joint swelling, muscle pain, muscle stiffness, neck pain. Skin: Denies: cysts, change in skin color, change in hair/nails, dryness, erythema, jaundice, lesions, lymphangitis, lumps, moles, rash. Neurological/Psychological: Reports: anxiety, emotional problems, tremors (intention), unable to move lower ext. Denies: ataxia, cognitive dysfunction, confusion, depressed, dementia, headache, numbness, paresthesia, pre-existing deficit, petit mal seizures, tingling, tonic -clonic seizures, unable to move upper ext, weakness. Hematologic/Endocrine: Reports: bruising. Denies: bleeding, polyuria, polydipsia. Immunologic/Allergic: Denies: splenectomy, HIV/AIDS, lymphadenopathy. All Other Systems: Reviewed and Negative Objective Vital Signs and I&Os Vital Signs Date Time Temp Pulse Resp B/P Pulse O2 O2 Flow FiO2 Ox Delivery Rate 05/28 1246 Nasal 2.0L Cannula 05/28 1245 96 Nasal 2.0L Cannula 05/28 0815 98.6 63 20 170/80 96 Nasal 2.0L Cannula 05/28 0804 72 174/82 05/28 0803 72 174/82 05/28 0800 Nasal 2.0L Cannula 05/27 2152 68 162/74 05/27 2127 98.2 62 18 162/70 96 Room Air 05/27 2100 Nasal 2.0L Cannula 05/27 1924 60 20 163/70 98 Nasal 2.0L Cannula 05/27 1923 60 163/70 05/27 1508 98.2 62 20 148/72 94 Room Air Intake & Output 05/28 1600 05/28 0400 05/27 1600 05/27 0400 05/26 1600 05/26 0400 Intake Total 250 550 Output Total Balance 250 550 Intake, IV 0 300 Intake, Oral 250 250 Number 2 1 Bowel Movements Patient 130 lb 135 lb Weight Physical Exam: Well-developed, chronically ill-appearing, elderly female in minimal distress, mildly tachypneic. Sclera anicteric. Conjunctiva pink. Oropharynx clear. No oral thrush. No aphthous ulcers. No stridor. There is no adenopathy, thyromegaly, or JVD. No HJR. No peripheral stigmata of inflammatory bowel disease or chronic liver disease on exam. No spiders on the anterior chest wall. No CVA tenderness. Lungs: Scattered bilateral end expiratory wheezing & a few scattered rhonchi. No definite egophony. No rales. Slight decreased breath sounds RUL. Heart exam: currently regular rate rhythm (NSR clinically), S1 and S2, with I/ systolic murmur. Breast and pelvic exams: API. Abdominal exam: normal bowel sounds, soft belly, nontender, without guarding or rebound. No mass. No organomegaly. No fluid shift. No pulsatile mass. No epigastric bruits. Multiple well-healed scars. Digital rectal exam: deferred by patient. Extremities: without cyanosis or clubbing. trace pedal edema B/L. No palpable cords. No palmar erythema. No Dupuytren's contractures. Distal pulses 2+ bilaterally. DTRs 2+ bilaterally. Unable to move legs B/L. Alert and oriented x 3, but poor historian. + Intention tremor. No asterixis. Current Medications: Current Medications Sig/Jonel Start time Last Medication Dose Route Stop Time Status Admin Albuterol Sulfate 3 ML BID 05/28 2199 AC 05/28 INH 1244 Albuterol Sulfate 3 ML Q6 PRN 05/27 1815 CAN INH Amlodipine Besylate 7.5 MG DAILY 05/28 1000 CAN PO Apixaban 2.5 MG BID 05/27 2199 AC 05/28 PO 0804 Azithromycin 500 MG ONCE ONE 05/27 1545 DC 05/27 Dextrose/Water 250 ML IV 05/27 1644 1608 Ceftriaxone Sodium 0 .STK-MED ONE 05/27 1551 DC .ROUTE Ceftriaxone Sodium 1,000 MG ONCE ONE 05/27 1545 DC 05/27 IV 05/27 1546 1608 Diltiazem HCl 120 MG DAILY 05/27 1813 AC 05/28 PO 0804 Insulin Aspart 0 TIDAC 05/28 0800 AC SC Ipratropium [place] 2.5 ML BID 05/28 2199 AC 05/28 INH 1243 Levothyroxine Sodium 0.1 MG DAILY AC 05/28 0700 AC 05/28 PO 0635 Lisinopril 40 MG DAILY 05/27 1815 AC 05/28 PO 0803 Magnesium Oxide 400 MG DAILY 05/28 1000 AC 05/28 PO 0804 Metoprolol Tartrate 25 MG BID 05/27 2200 AC 05/28 PO 0804 Oseltamivir Phosphate 30 MG BID 05/27 2199 AC 05/28 PO 05/31 2159 0804 Sodium Chloride 1,000 ML .[id number] 05/27 1800 DC 05/27 IV 05/28 0719 1800 Trimethobenzamide HCl 200 MG TIDPRN PRN 05/27 2330 AC 05/28 IM 1051 Results Pertinent Lab Results: Laboratory Tests 05/28 05/27 05/27 0724 1816 1620 Chemistry Sodium (137 - 145 mmol/L) 132 L Potassium (3.5 - 5.1 mmol/L) 4.3 Chloride (98 - 107 mmol/L) 98 Carbon Dioxide (22 - 30 mmol/L) 29 Anion Gap (5 - 16) 6 BUN (7 - 17 mg/dL) 15 Creatinine (0.5 - 1.0 mg/dL) 0.7 Estimated GFR (>60 ml/min) > 60 BUN/Creatinine Ratio (7 - 25 %) 21.4 Total Bilirubin (0.2 - 1.3 mg/dL) 0.8 Cancelled Direct Bilirubin (< 0.4 mg/dL) 0.8 H Cancelled AST (14 - 36 U/L) 2553 H Cancelled ALT (9 - 52 U/L) 2148 H Cancelled Alkaline Phosphatase (<127 U/L) 114 Cancelled Creatine Kinase (30 - 135 U/L) 91 Total Protein (6.3 - 8.2 g/dL) 6.1 L Cancelled Albumin (3.5 - 5.0 g/dL) 3.0 L Cancelled Hematology CBC w Diff NO MAN DIFF REQ WBC (4.8 - 10.8 /CUMM) 8.3 RBC (4.20 - 5.40 /CUMM) 3.35 L Hgb (12.0 - 16.0 G/DL) 9.5 L Hct (37 - 47 %) 28.6 L MCV (81.0 - 99.0 FL) 85.3 MCH (27.0 - 31.0 PG) 28.4 RDW (11.5 - 14.5 %) 19.4 H Plt Count (130 - 400 /CUMM) 361 MPV (7.4 - 10.4 FL) 7.8 Gran % (42.2 - 75.2 %) 73.1 Lymphocytes % (20.5 - 51.1 %) 20.7 Monocytes % (1.7 - 9.3 %) 5.7 Eosinophils % (0 - 5 %) 0.3 Basophils % (0.0 - 2.0 %) 0.2 Absolute Granulocytes (1.4 - 6.5 /CUMM) 6.1 Absolute Lymphocytes (1.2 - 3.4 /CUMM) 1.7 Absolute Monocytes (0.10 - 0.60 /CUMM) 0.5 Absolute Eosinophils (0.0 - 0.7 /CUMM) 0 Absolute Basophils (0.0 - 0.2 /CUMM) 0 PUBS MCHC (33.0 - 37.0 G/DL) 33.3 Immunology LORIE Titer Pending Anti-Nuclear Antibody Pending Serology Virus Culture Pending 05/27 1300 Chemistry Sodium (137 - 145 mmol/L) 133 L Potassium (3.5 - 5.1 mmol/L) 4.1 Chloride (98 - 107 mmol/L) 95 L Carbon Dioxide (22 - 30 mmol/L) 27 Anion Gap (5 - 16) 11 BUN (7 - 17 mg/dL) 16 Creatinine (0.5 - 1.0 mg/dL) 0.7 Estimated GFR (>60 ml/min) > 60 BUN/Creatinine Ratio (7 - 25 %) 22.9 Glucose (65 - 99 mg/dL) 86 Calcium (8.4 - 10.2 mg/dL) 8.8 Total Bilirubin (0.2 - 1.3 mg/dL) 1.1 Direct Bilirubin (< 0.4 mg/dL) 0.9 H AST (14 - 36 U/L) 2312 H ALT (9 - 52 U/L) 1633 H Alkaline Phosphatase (<127 U/L) 123 Troponin I (< 0.11 ng/ml) 0.04 [id number] Pept (<125 pg/mL) 7110 H Total Protein (6.3 - 8.2 g/dL) 7.1 Albumin (3.5 - 5.0 g/dL) 3.6 Globulin (1.9 - 4.2 gm/dL) 3.5 Albumin/Globulin Ratio (1.1 - 2.2 %) 1.0 L Coagulation PT (9.4 - 12.5 SEC) 25.6 H INR (0.90 - 1.19) 2.46 H APTT (25 - 37 SEC) 37 Hematology CBC w Diff NO MAN DIFF REQ WBC (4.8 - 10.8 /CUMM) 10.8 RBC (4.20 - 5.40 /CUMM) 3.67 L Hgb (12.0 - 16.0 G/DL) 10.4 L Hct (37 - 47 %) 31.5 L MCV (81.0 - 99.0 FL) 85.8 MCH (27.0 - 31.0 PG) 28.2 RDW (11.5 - 14.5 %) 19.4 H Plt Count (130 - 400 /CUMM) 400 MPV (7.4 - 10.4 FL) 7.6 Gran % (42.2 - 75.2 %) 77.3 H Lymphocytes % (20.5 - 51.1 %) 17.7 L Monocytes % (1.7 - 9.3 %) 4.1 Eosinophils % (0 - 5 %) 0.5 Basophils % (0.0 - 2.0 %) 0.4 Absolute Granulocytes (1.4 - 6.5 /CUMM) 8.4 H Absolute Lymphocytes (1.2 - 3.4 /CUMM) 1.9 Absolute Monocytes (0.10 - 0.60 /CUMM) 0.4 Absolute Eosinophils (0.0 - 0.7 /CUMM) 0.1 Absolute Basophils (0.0 - 0.2 /CUMM) 0 PUBS MCHC (33.0 - 37.0 G/DL) 32.8 L Serology Hepatitis A IgM Ab (NONREACTIVE) NONREACTIVE Hep Bs Antigen (NONREACTIVE) NONREACTIVE Hep B Core IgM Ab Conf (NONREACTIVE) NONREACTIVE Hepatitis C Antibody (NONREACTIVE) NONREACTIVE Toxicology Acetaminophen (10.0 - 30.0 ug/mL) < 10.0 L Imaging/Other Studies: 05/27/2016: EKG- NSR @ 62, LBBB, multifocal PVC. 05/27/2016: XRY-CHEST XRAY, PA AND LATERAL- There are are chronic changes in the right lung consistent with the history of prior right upper lobectomy. There is a streaky parenchymal opacity in the left midlung zone which is new or more prominent compared to prior study and could represent an area of subsegmental atelectasis. No dense consolidation is seen and there is no other change. 05/27/2016: US ABDOMEN (RUQ) LIMITED- 1. Status post CCKY with no evidence of intra or extrahepatic biliary ductal dilatation. CBD 4 mm. Normal liver. 2. Incomplete view of the pancreatic head and tail. Visualized portions of the pancreas appear atrophic, but otherwise unremarkable. 3. Exophytic upper pole right renal cyst. 4. Previously demonstrated extrarenal pelvis and dilated right ureter not seen on this exam versus resolved in the interim. 05/27/2016: HEPATIC ULTRASOUND WITH DOPPLER- Normal hepatic Doppler ultrasound with patent hepatic arteries, patent and normally directed portal veins and hepatic veins. Intrahepatic IVC patent.
--- NOTE | 2016-05-28 16:09 | Cons- Cardiology ---
General Information and HPI Consulting Request Date of Consult: 05/28/16 Requested By: BEHZAD CASTRO MD Reason for Consult: Elevated transaminases. Source of Information: patient, old records Exam Limitations: poor historian History of Present Illness: Mrs. 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, small airway disease, mild interstitial lung disease, spinal cord injury with left paraplegia, paroxysmal atrial fibrillation on anticoagulation (apixaban) and antiarrhythmic (amiodarone) therapy, recurrent diastolic heart failure, previous recurrent epistaxis s/p cautery by ENT, chronic anemia, diverticular disease, and 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 and who had a swab positive for influenza A. Allergies/Medications Allergies: Coded Allergies: amlodipine (Severe, C/P 05/27/16) codeine (Severe, C/P 05/27/16) morphine (Severe, C/P 05/27/16) omeprazole (Severe, C/P 05/27/16) Home Med List: Albuterol Sulfate/Ipratropiu (Duoneb) 3 MG/3 ML NEB 1 Vial INH/ROCIO PRN DYSPNEA (Reported) Amlodipine (Norvasc 5MG Tab) 5 MG TAB 1.5 TAB PO DAILY HIGH BP Aspirin (Aspirin*) 81 MG TAB.CHEW 1 TAB PO DAILY HEART Dicyclomine Hydrochloride (Bentyl) 10 MG CAPSULE 1 CAP PO TID PRN ABDOMINAL SPASMS DILTIAZEM HCL (Cardizem Cd) 120 MG CER 1 TAB PO DAILY HEART RATE (Reported) Levothyroxine Sodium 0.1 MG TAB 1 TAB PO DAILY HYPERTHYROIDISM PLEASE TAKE THIS TABLET IN AM. Lisinopril 40 MG TAB 1 TAB PO DAILY HYPERTENSION Lorazepam (Ativan) 0.5 MG TAB 1 TAB PO Q6-8P PRN ANXIETY (Reported) Magnesium Oxide 400 MG TABLET 1 TAB PO DAILY MINERAL SUPPLEMENT (Reported) METFORMIN HCL (Metformin Hydrochloride) 500 MG TABLET 1 TAB PO DAILY DIABETES MELLITUS (Reported) Metoprolol Tartrate (Lopressor) 25 MG TAB 1 TAB PO BID BLOOD PRESSURE Nystatin (Mycostatin Powder) 15 GM PWD 1 JC TOP TID PRN fungal rash Oseltamivir Phosphate (Tamiflu) 30 MG CAPSULE 30 MG PO BID FLU Review of Systems Review of Systems: A 14 point system review was obtained and was noncontributory, other than as above. Past History Travel History Traveled to [place] past 21 day No Medical History Blood Transfusion Hx: Yes Neurological: B/L LE weakness, post spine fx/fall intention tremor EENT: epistaxis Cardiovascular: AFIB (PAF), CAD (s/p stent to RCA vs PTCA), CHF, hypertension, hyperlipidemia, myocardial infarction Respiratory: COPD, interstitial lung disease, LUNG CA RUL LOBECTOMY O2 DEPENDENT 2-3L Gastrointestinal: lactose intolerance, [id number], SIGMOID COLECTOMY 02/13 colonoscopy fair prep - tics but no polyps 02/13- egd gastritis DIVERTICULOSIS COLI Hepatic: NONE Renal: urinary incontinence Musculoskeletal: chronic back pain (post fall), degen joint disease, BROKEN BACK 15 YEARS AGO UNABLE TO BEAR WEIGHT Psychiatric: anxiety Endocrine: diabetes, hypothyroidism Blood Disorders: NONE (chronic), anemia Cancer(s): lung cancer (s/p RUL lobectomy SC Ca), AdenoCa in situ- sigmoid resection 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 , Age 70. FHx: stomach cancer FATHER ("some type of Ca"- not colon Ca). , Age 63. FH: cancer BROTHER FH: prostate cancer Psychosocial History Where Do You Live? Home Who Do You Live With? child, SHE LIVES WITH HER DAUGHTER Services at Home: Nursing, Oxygen Primary Language: Bel[place]ian Smoking Status: Former Smoker ETOH Use: denies use Illicit Drug Use: denies illicit drug use Living Will? yes (DNR/DNI) Power of Dry Cleaning Supervisor/HCP? yes Name of POA/HCP: Pt's son, Constantino Boston Other Social History: . Lives with her daughter. 4 children, A&W (2 sons & 2 dtrs). Pt's son, Constantino Boston, is identified as POA. Ex 15 pk yr cigarettee smoker, D/C 1998. Minimal EtOH in past, none recently. No drugs or IVDA. No tattoos. 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 Ambulation: non-ambulatory (W/C) IADLs Needs Assist: shopping, housework, finances, food prep, telephone, transportation, medication admin. 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 Mildly decreased EF of 45% with moderate anterior and anteroseptal wall hypokinesis. 2. Mild left ventricular hypertrophy. 3. Mild mitral regurgitation. 4. Mild tricuspid regurgitation. Exam & Diagnostic Data Vital Signs and I&O Temperature 98.6 degrees, respirations 20, pulse 56, blood pressure 138/70 Physical Exam: Well-developed, overweight elderly female in no acute distress. Vital signs: See above. HEENT: Normocephalic, atraumatic, EOMI, slightly dry mucous membranes. Neck: No JVD, Lungs: Clear to auscultation. Heart: S1, S2 with no murmur, gallop, or rub appreciated. Abdomen: Soft, mildly tender to palpation, positive bowel sounds. Extremities: No edema. Assessment/Plan Assessment/Plan Mrs. Boston is an elderly female with multiple medical problems as described above who presented with flulike symptoms and who was found to have a positive swab for influenza A which is being appropriately managed with Tamiflu therapy, but who also was found to have markedly elevated transaminases of uncertain etiology and is being treated with several cardiac medications which could be responsible for the elevation. The amiodarone has already been discontinued, which is reasonable, but may lead to her reverting back atrial fibrillation, so continue on telemetry. Continue to follow-up her potassium in a.m. to maintain this at between 4.0-4.5 mEq per liter. Check a magnesium level and maintain this at or above 2.0 mEq per liter. Check a free T4 and TSH level. Repeat an echocardiogram to reassess her left ventricular systolic/diastolic function, right ventricular function, PA pressure, etc. Also agree with holding his atorvastatin for the short-term as this can also be contributing to the elevated transaminases. Also reasonable to hold her factor Xa inhibitor (apixaban), since she is in sinus rhythm and its contribution to her coagulopathy is unclear and because its metabolism is primarily hepatic. Would continue her on the metoprolol and diltiazem, unless her transaminases do not improve. Further recommendations will follow, Thank you`` Consult Acknowledgment - Thank you for your consult request.
[2016-05-28 17:13] VITALS: BP 138/70
[2016-05-29 00:48] VITALS: BP 140/80
--- NOTE | 2016-05-29 07:37 | PN- Gastroenterology ---
Assessment/Plan Assessment/Recommendations: 80-year-old female, poor historian, post RUL lobectomy for squamous cell CA of the lung w/o adjuvant therapy, HTN/HLD/DM/hypoT4/ASHD post TX, paroxysmal atrial fibrillation on outpatient Eliquis & Amiodarone, 08/08/2008: post sigmoid resection for large sigmoid [id number], without any invasive component, lymph node negative, which was too large to remove via 07/27/2008: colonoscopy. (There is no FHx of colon Ca, but her mother may have had gastric Ca). 02/10/2010: Colonoscopy to the cecum- post sigmoid resection with clean anastomosis at 20 cm, tiny hyperplastic polyps, moderate pandiverticulosis coli left side greater than right, with only fair prep after a gallon of TriLyte. In view of the above and the history of an advanced adenoma, I advised a follow-up colonoscopy was advised 2 years later, namely for 02/2012; however, the patient was not compliant with this. 02/04/2014: Covering EGD by Dr. Gerald Maldonado- mild gastritis, H. pylori-negative, CHULA brushings of esophagus positive (? Diflucan rxd). 02/05/2014: Attempted colonoscopy to 10 cm- terminated because of stool. 02/06/2014: Colonoscopy to TI- clean surgical anastomosis at 18 cm, post sigmoid resection, pandiverticulosis coli, normal TI, without any angiodysplasias or recurrent polyps or lesions. Patient had intermittent anemia and OB positive stool then. Her anticoagulation therapy was resumed at that point. Apparently, she saw Dr. Walter Maldonado for outpatient GI f/u after that [facility] & a decision was made to defer a PillCam unless her anemia recurred. 01/17/2012: nl IgA 382, tTG Ab- negative Her other numerous issues include COPD on home O2-2L nc Qhs, spinal cord injury reportedly wheelchair-bound with (waist down) B/L lower extremity paraplegia, diastolic CHF, cardiac stent placement (?type) vs. RCA PTCA in 05/2014, lactose intolerance, APPY, CCKY, cataract surgery, tubal ligation & hx epistaxis. The patient has had numerous admissions for intermittent OB positive stool and multifactorial anemia. *Outpatient PillCam has never been done. She was last admitted to [facility] 05/05/2015 - 05/07/2015, with exacerbation of COPD, hypertension, & UTI. The patient presented to the [facility] 05/27/2016 at 12:15 p.m., complaining of cough productive of yellowish sputum and symptoms of URI, congestion & wheezing. Upon arrival, BP 153/75, P 65, R 22, T 98.6, O2 sat RA 93%. She had some mild nausea and vomiting, with bilious contents. There was no overt GI bleeding, hematemesis, or melena. She denied any GERD, odynophagia, dysphagia, or early satiety. She had decreased po intake for 2 days [employer]. She denied any fevers or chills, but was more short of breath than usual. There was no chest pain. She denied any abdominal pain (her story changed from time to time). She reportedly had diarrhea over week ago, which resolved, without any constipation, obstipation, or tenesmus. *There was no documented hypotension. Her transaminases (AST/ALT), were subsequently found to be significantly elevated, prompting the GI consult. *Please note, in addition to Amiodarone, she was on outpatient Atorvastatin. *The AST/ALT (162/167), were minimally elevated in the [facility] , in the setting of elevated BNP 51322. She denied any jaundice, dark urine, light stool, or pruritus. She denied any NSAID or Tylenol use. A flu swab was positive for acute influenza. There was no evidence of pneumonia on chest x-ray, just COPD and old RLL resection. She was started on Tamiflu, per the medical team. She remotely had mild amounts of alcohol, none recently. She is an ex [id number] cigarette smoker, stopping 1998. She denied any known history of previous viral hepatitis. She has been transfused in the past. There is no history of needle sticks, tattoos, or IVDA. She denied any recent travel, herbal medications, or raw foods. There were no definite myalgias or acute arthralgias. There was no acute rash. She denied any symptoms of UTI. The patient was given Prednisone, Albuterol, Atrovent, Ceftriaxone, & Azithromycin in the ER. *Imaging studies of the RUQ on admission, per ER- negative post cholecystectomy. *I also requested Doppler studies of the HV/PV, which were negative. 05/27/2016: *Rapid viral influenza A/B- nasopharyngeal swab- *positive influenza type A. 05/27/2016: BC x 2- negative x 1 day. 05/27/2016: Admission labs- WBC 10.8 (77% gran/8 gran Ab), H/H 10.4/31.5, normal MCV 85.8, elevated RDW 19.4, PLT 400, PT 25.6, INR 2.46, PTT 37, glucose 86, BUN /Cr 16/0.7, GFR > 60, Na 133, K 4.1, HCO3 27, AG 11, albumin 3.6, glob 3.5, TBil 1.1, alk phos 123, *AST 2312, *ALT 1633, troponin 0.04, *[Tylenol] < 10, elevated BNP 7110. 05/27/2016: EKG- NSR @ 62, LBBB, multifocal PVC. 05/27/2016: XRY-CHEST XRAY, PA AND LATERAL- There are are chronic changes in the right lung consistent with the history of prior right upper lobectomy. There is a streaky parenchymal opacity in the left midlung zone which is new or more prominent compared to prior study and could represent an area of subsegmental atelectasis. No dense consolidation is seen and there is no other change. 05/27/2016: US ABDOMEN (RUQ) LIMITED- 1. Status post CCKY with no evidence of intra or extrahepatic biliary ductal dilatation. CBD 4 mm. Normal liver. 2. Incomplete view of the pancreatic head and tail. Visualized portions of the pancreas appear atrophic, but otherwise unremarkable. 3. Exophytic upper pole right renal cyst. 4. Previously demonstrated extrarenal pelvis and dilated right ureter not seen on this exam versus resolved in the interim. 05/27/2016: HEPATIC ULTRASOUND WITH DOPPLER- Normal hepatic Doppler ultrasound with patent hepatic arteries, patent and normally directed portal veins and hepatic veins. Intrahepatic IVC patent. The significantly elevated transaminases (AST/ALT 2312/1633) on admission , were noted, which seemed incidental in nature, as the patient had no GI symptoms, except for some mild nausea and vomiting. She had a benign abdominal exam. She was admitted primarily for a flare of COPD and influenza. There was no documented hypotension to suggest "shock liver" (i.e.- ischemic hepatitis). Although her BNP was somewhat elevated 7110, there was no overt CHF on the admission chest x-ray. Her level of transaminase elevation was higher than one would expect with passive congestion, anway. Her Tylenol level is < 10. There is no significant EtOH, and the height & pattern of the transaminases are atypical for this. Rule out viral hepatitis, especially with positive influenza A. Rule out medication-induced (i.e.- Amiodarone/Atorvastatin). * Please note, Cardizem & Toprol have been reported to cause hepatitis, but these are less likely to do so than Amiodarone and/or Atorvastatin. Consider a component of skeletal muscle inflammation. Doubt AIH. *RUQ sono/Doppler HV/PV- negative for any acute pathology, post CCKY. *No evidence of vascular occlusion or Budd-Chiari syndrome. 05/27/2016: *Hep A Ab, Hep Bs Ag, Hep C Ab, & Hep B core Ab- all negative 05/27/2016: *viral culture- pending 05/28/2016: WBC 8.3, H/H 9.5/28.6, nl MCV, PLT 361 05/28/2016: nl CK 91, albumin 3.0, globulin 3.1, TBil 0.8, DBil 0.8, alk phos 114, *AST 2553, *ALT 2148, GFR > 60 *As of 05/28/2016, the patient remained hemodynamically stable (actually HTN- not hypotensive, regarding her elevated AST/ALT), & afebrile. O2 sat 2L nc- 96%. She remained in NSR. Atorvastatin and Amiodarone were held on admission. The medical team has continued her Eliquis. She remained on Cardizem and Toprol, both of which have been reported to cause hepatitis (although not as likely as Amiodarone or Atorvastatin). Cardiology input is pending. Tamiflu was prescribed on admission. The patient remains a poor historian. Apparently, she had some mild nausea without vomiting. She is on a heart healthy, DM diet. There was no abdominal pain or diarrhea. She denied any chills or rashes. There was no jaundice. She remained with URI symptoms and some mild shortness of breath, without any chest pain. She received 1 dose of IV Ceftriaxone in the ER 2016. She never received any Azithromycin, as her respiratory symptoms were probably viral/COPD in nature. *The patient was seen by cardiology 05/28/2016. Dr. Hager agree with continuing to hold Atorvastatin & Amiodarone. Eliquis was stopped on 2016. Metoprolol and Cardizem were continued for now, per cardiology, unless the patient's transaminases continue to rise. 05/28/2016: *Urine Legionelaa Ag- negative 05/28/2016: *LORIE- pending 05/29/2016: *Bartholomew spot- pending *As of 05/29/2016, the patient remains hemodynamically stable and afebrile, on Tamiflu. O2 sat 2L nc 96%. She remains in NSR. Her breathing seems slightly improved, although she is wheezing. She has no symptoms referable to her liver. She has vague right-sided lower rib pain, reproducible by touch. [*Transaminitis probably viral vs. medication induced]. *SUGGEST: *Serial LFTs & INR daily. *Check EBV/CMV & Aldolase. *Await 05/28/2016: LORIE & : mono spot. *Await 05/27/2016: viral cultures. *Continue to hold Amiodarone & Atorvastatin for now (cardiology agrees), until transaminases hopefully resolve. Continue to hold Eliquis for now (cardiology agrees), as there is a chance her INR will rise independent of the Eliquis, due to the transaminitis. *Carefully continue Cardizem & Toprol for now, as these are less likely to cause hepatitis than Amiodarone and/or Atorvastatin. *Await echocardiogram, per cardiology. *Consider right rib series. *Consider checking for Norovirus. *Consider checking for atypical PNA (i.e.- Mycoplasma; 05/28/2016 : urine Legionella Ag- negative), which can cause elevated LFTs. Doubt tick- borne illness. Treatment of COPD and influenza as per medical team. Although the patient has a history of an advanced colon adenoma requiring surgical resection, in view of her advanced age and numerous comorbidities, probably no need for repeat surveillance colonoscopy, as it was last clean on 02/06/2014. The case was previously discussed with the medical house staff & with Dr. Hager , & again with the patient's RN. Further recommendations to follow, based on clinical course. Problem List: 1. Transaminitis 2. Influenza A 3. Anemia 4. History of colon cancer 5. Diverticulosis of colon Subjective Subjective: *The patient was seen by cardiology 05/28/2016. Dr. Hager agree with continuing to hold Atorvastatin & Amiodarone. Eliquis was stopped on 2016. Metoprolol and Cardizem were continued for now, per cardiology, unless the patient's transaminases continue to rise. 05/28/2016: *Urine Legionelaa Ag- negative 05/28/2016: *LORIE- pending 05/29/2016: *Bartholomew spot- pending *As of 05/29/2016, the patient remains hemodynamically stable and afebrile, on Tamiflu. O2 sat 2L nc 96%. She remains in NSR. Her breathing seems slightly improved, although she is wheezing. She has no symptoms referable to her liver. She has vague right-sided lower rib pain, reproducible by touch. Review of Systems: Full 14 point ROS otherwise noncontributory, and as above Review of Systems Constitutional: Denies: chills, diaphoresis, fever, malaise, weakness, unexplained weight loss. EENTM: Denies: blurred vision, double vision, visual changes, eye pain, eye drainage, eye tearing, icterus, ear discharge, ear pain, ear redness, hearing changes, nasal congestion, epistaxis, nasal pain, throat pain, throat swelling, mouth pain, tooth pain. Cardiovascular: Denies: chest pain, edema, orthopena, palpitations, peripheral edema, syncope. Respiratory: Reports: cough (yellow sputum), short of breath (slightly better), sputum production, wheezing. Denies: hemoptysis, orthopnea, stridor. GI: Reports: nausea (mild), vomiting (gone). Denies: abdominal pain, bloating, constipation, diarrhea, distention, bowel incontinence, melena, bloody stool, changes in stool, steatorrhea. Genitourinary: Denies: discharge, dysuria, frequency, hematuria, hesitation, nocturia, pain, urgency. Musculoskeletal: Reports: chronic back pain, lower right rib pain. Denies: gout, joint pain, joint swelling, muscle pain, muscle stiffness, neck pain. Skin: Denies: cysts, change in skin color, change in hair/nails, dryness, erythema, jaundice, lesions, lymphangitis, lumps, moles, rash. Neurological/Psychological: Reports: anxiety, emotional problems, tremors (intention), unable to move lower ext. Denies: ataxia, cognitive dysfunction, confusion, depressed, dementia, headache, numbness, paresthesia, pre-existing deficit, petit mal seizures, tingling, tonic -clonic seizures, unable to move upper ext, weakness. Hematologic/Endocrine: Reports: bruising. Denies: bleeding, polyuria, polydipsia. Immunologic/Allergic: Denies: splenectomy, HIV/AIDS, lymphadenopathy. All Other Systems: Reviewed and Negative Objective Vital Signs and I&Os Vital Signs Date Time Temp Pulse Resp B/P Pulse O2 O2 Flow FiO2 Ox Delivery Rate 05/29 0048 98.0 53 20 140/80 96 Nasal 2.0L Cannula 05/29 0000 Nasal 2.0L Cannula 05/28 2108 54 148/56 05/28 2009 97 Nasal 2.0L Cannula 05/28 1713 98.0 57 20 138/70 95 Nasal 3.0L Cannula 05/28 1600 95 Nasal 2.0L Cannula 05/28 1246 Nasal 2.0L Cannula 05/28 1245 96 Nasal 2.0L Cannula 05/28 0815 98.6 63 20 170/80 96 Nasal 2.0L Cannula 05/28 0804 72 174/82 05/28 0803 72 174/82 05/28 0800 Nasal 2.0L Cannula Intake & Output 05/29 1600 05/29 0400 05/28 1600 05/28 0400 05/27 1600 05/27 0400 Intake Total 150 400 690 550 Output Total 400 Balance 150 0 690 550 Intake, IV 0 300 Intake, Oral 150 400 690 250 Number 0 3 1 Bowel Movements Output, Urine 400 Patient 130 lb 135 lb Weight Physical Exam: Well-developed, chronically ill-appearing, elderly female in minimal distress, less tachypneic. Sclera anicteric. Conjunctiva pink. Oropharynx clear. No oral thrush. No aphthous ulcers. No stridor. There is no adenopathy, thyromegaly, or JVD. No HJR. No peripheral stigmata of inflammatory bowel disease or chronic liver disease on exam. No spiders on the anterior chest wall. No CVA tenderness. Lungs: Scattered bilateral end expiratory wheezing & a few scattered rhonchi. No definite egophony. No rales. Slight decreased breath sounds RUL. *Tender right lower ribs anteriorly at mid-axillary line. Heart exam : currently regular rate rhythm (NSR clinically), S1 and S2, with I/ systolic murmur. Breast and pelvic exams: API. Abdominal exam: normal bowel sounds, soft belly, nontender, without guarding or rebound. No mass. No organomegaly. No fluid shift. No pulsatile mass. No epigastric bruits. Multiple well-healed scars. Digital rectal exam: deferred by patient. Extremities: without cyanosis or clubbing. trace pedal edema B/L. No palpable cords. No palmar erythema. No Dupuytren's contractures. Distal pulses 2+ bilaterally. DTRs 2+ bilaterally. Unable to move legs B/L. Alert and oriented x 3, but poor historian. + Intention tremor. No asterixis. Current Medications: Current Medications Sig/Jonel Start time Last Medication Dose Route Stop Time Status Admin Albuterol Sulfate 3 ML BID 05/28 2199 AC 05/28 INH 2009 Albuterol Sulfate 3 ML Q6 PRN 05/27 181 CAN INH Apixaban 2.5 MG BID 05/27 2199 DC 05/28 PO 0804 Benzonatate 100 MG TIDPRN PRN 05/29 0345 AC 05/29 PO 0457 Diltiazem HCl 120 MG DAILY 05/27 1813 AC 05/28 PO 0804 Insulin Aspart 0 TIDAC 05/28 0800 AC SC Ipratropium [place] 2.5 ML BID 05/28 2199 AC 05/28 INH 2009 Levothyroxine Sodium 0.1 MG DAILY AC 05/28 0700 AC 05/29 PO 0559 Lisinopril 40 MG DAILY 05/27 181 AC 05/28 PO 0803 Magnesium Oxide 400 MG DAILY 05/28 1000 AC 05/28 PO 0804 Metoprolol Tartrate 25 MG BID 05/27 2199 AC 05/28 PO 210 Oseltamivir Phosphate 75 MG BID 05/29 1000 UNVr PO 05/31 2158 Oseltamivir Phosphate 30 MG BID 05/27 2199 DC 05/28 PO 05/31 Trimethobenzamide HCl 200 MG .STK-MED ONE 05/28 1047 DC IM 05/28 1048 Trimethobenzamide HCl 200 MG TIDPRN PRN 05/27 2330 AC 05/29 IM 0044 Results Pertinent Lab Results: Laboratory Tests 05/29 05/28 0635 1341 Chemistry Sodium Pending Potassium Pending Chloride Pending Carbon Dioxide Pending Anion Gap Pending BUN Pending Creatinine Pending BUN/Creatinine Ratio Pending Magnesium Pending Total Bilirubin Pending Direct Bilirubin Pending AST Pending ALT Pending Alkaline Phosphatase Pending Total Protein Pending Albumin Pending Coagulation PT Pending INR Pending Hematology CBC w Diff NO MAN DIFF REQ WBC (4.8 - 10.8 /CUMM) 8.0 RBC (4.20 - 5.40 /CUMM) 3.37 L Hgb (12.0 - 16.0 G/DL) 9.6 L Hct (37 - 47 %) 28.9 L MCV (81.0 - 99.0 FL) 85.6 MCH (27.0 - 31.0 PG) 28.5 RDW (11.5 - 14.5 %) 19.5 H Plt Count (130 - 400 /CUMM) 340 MPV (7.4 - 10.4 FL) 8.1 Gran % (42.2 - 75.2 %) 71.2 Lymphocytes % (20.5 - 51.1 %) 22.9 Monocytes % (1.7 - 9.3 %) 4.9 Eosinophils % (0 - 5 %) 0.7 Basophils % (0.0 - 2.0 %) 0.3 Absolute Granulocytes (1.4 - 6.5 /CUMM) 5.7 Absolute Lymphocytes (1.2 - 3.4 /CUMM) 1.8 Absolute Monocytes (0.10 - 0.60 /CUMM) 0.4 Absolute Eosinophils (0.0 - 0.7 /CUMM) 0.1 Absolute Basophils (0.0 - 0.2 /CUMM) 0 PUBS MCHC (33.0 - 37.0 G/DL) 33.3 Serology Infectious Bartholomew Titer Pending Cancelled 05/28 05/27 05/27 0793 1816 1620 Chemistry Sodium (137 - 145 mmol/L) 132 L Potassium (3.5 - 5.1 mmol/L) 4.3 Chloride (98 - 107 mmol/L) 98 Carbon Dioxide (22 - 30 mmol/L) 29 Anion Gap (5 - 16) 6 BUN (7 - 17 mg/dL) 15 Creatinine (0.5 - 1.0 mg/dL) 0.7 Estimated GFR (>60 ml/min) > 60 BUN/Creatinine Ratio (7 - 25 %) 21.4 Total Bilirubin (0.2 - 1.3 mg/dL) 0.8 Cancelled Direct Bilirubin (< 0.4 mg/dL) 0.8 H Cancelled AST (14 - 36 U/L) 2553 H Cancelled ALT (9 - 52 U/L) 2148 H Cancelled Alkaline Phosphatase (<127 U/L) 114 Cancelled Creatine Kinase (30 - 135 U/L) 91 Total Protein (6.3 - 8.2 g/dL) 6.1 L Cancelled Albumin (3.5 - 5.0 g/dL) 3.0 L Cancelled TSH (0.270 - 4.200 uIU/mL) 0.662 Free T4 (0.85 - 1.93 ng/dL) 3.63 H Hematology CBC w Diff NO MAN DIFF REQ WBC (4.8 - 10.8 /CUMM) 8.3 RBC (4.20 - 5.40 /CUMM) 3.35 L Hgb (12.0 - 16.0 G/DL) 9.5 L Hct (37 - 47 %) 28.6 L MCV (81.0 - 99.0 FL) 85.3 MCH (27.0 - 31.0 PG) 28.4 RDW (11.5 - 14.5 %) 19.4 H Plt Count (130 - 400 /CUMM) 361 MPV (7.4 - 10.4 FL) 7.8 Gran % (42.2 - 75.2 %) 73.1 Lymphocytes % (20.5 - 51.1 %) 20.7 Monocytes % (1.7 - 9.3 %) 5.7 Eosinophils % (0 - 5 %) 0.3 Basophils % (0.0 - 2.0 %) 0.2 Absolute Granulocytes (1.4 - 6.5 /CUMM) 6.1 Absolute Lymphocytes (1.2 - 3.4 /CUMM) 1.7 Absolute Monocytes (0.10 - 0.60 /CUMM) 0.5 Absolute Eosinophils (0.0 - 0.7 /CUMM) 0 Absolute Basophils (0.0 - 0.2 /CUMM) 0 PUBS MCHC (33.0 - 37.0 G/DL) 33.3 Immunology LORIE Titer Pending Anti-Nuclear Antibody Pending Serology Virus Culture Pending 05/27 1300 Chemistry Sodium (137 - 145 mmol/L) 133 L Potassium (3.5 - 5.1 mmol/L) 4.1 Chloride (98 - 107 mmol/L) 95 L Carbon Dioxide (22 - 30 mmol/L) 27 Anion Gap (5 - 16) 11 BUN (7 - 17 mg/dL) 16 Creatinine (0.5 - 1.0 mg/dL) 0.7 Estimated GFR (>60 ml/min) > 60 BUN/Creatinine Ratio (7 - 25 %) 22.9 Glucose (65 - 99 mg/dL) 86 Calcium (8.4 - 10.2 mg/dL) 8.8 Total Bilirubin (0.2 - 1.3 mg/dL) 1.1 Direct Bilirubin (< 0.4 mg/dL) 0.9 H AST (14 - 36 U/L) 2312 H ALT (9 - 52 U/L) 1633 H Alkaline Phosphatase (<127 U/L) 123 Troponin I (< 0.11 ng/ml) 0.04 [id number] Pept (<125 pg/mL) 7110 H Total Protein (6.3 - 8.2 g/dL) 7.1 Albumin (3.5 - 5.0 g/dL) 3.6 Globulin (1.9 - 4.2 gm/dL) 3.5 Albumin/Globulin Ratio (1.1 - 2.2 %) 1.0 L Coagulation PT (9.4 - 12.5 SEC) 25.6 H INR (0.90 - 1.19) 2.46 H APTT (25 - 37 SEC) 37 Hematology CBC w Diff NO MAN DIFF REQ WBC (4.8 - 10.8 /CUMM) 10.8 RBC (4.20 - 5.40 /CUMM) 3.67 L Hgb (12.0 - 16.0 G/DL) 10.4 L Hct (37 - 47 %) 31.5 L MCV (81.0 - 99.0 FL) 85.8 MCH (27.0 - 31.0 PG) 28.2 RDW (11.5 - 14.5 %) 19.4 H Plt Count (130 - 400 /CUMM) 400 MPV (7.4 - 10.4 FL) 7.6 Gran % (42.2 - 75.2 %) 77.3 H Lymphocytes % (20.5 - 51.1 %) 17.7 L Monocytes % (1.7 - 9.3 %) 4.1 Eosinophils % (0 - 5 %) 0.5 Basophils % (0.0 - 2.0 %) 0.4 Absolute Granulocytes (1.4 - 6.5 /CUMM) 8.4 H Absolute Lymphocytes (1.2 - 3.4 /CUMM) 1.9 Absolute Monocytes (0.10 - 0.60 /CUMM) 0.4 Absolute Eosinophils (0.0 - 0.7 /CUMM) 0.1 Absolute Basophils (0.0 - 0.2 /CUMM) 0 PUBS MCHC (33.0 - 37.0 G/DL) 32.8 L Serology Hepatitis A IgM Ab (NONREACTIVE) NONREACTIVE Hep Bs Antigen (NONREACTIVE) NONREACTIVE Hep B Core IgM Ab Conf (NONREACTIVE) NONREACTIVE Hepatitis C Antibody (NONREACTIVE) NONREACTIVE Toxicology Acetaminophen (10.0 - 30.0 ug/mL) < 10.0 L Imaging/Other Studies: 05/27/2016: EKG- NSR @ 62, LBBB, multifocal PVC. 05/27/2016: XRY-CHEST XRAY, PA AND LATERAL- There are are chronic changes in the right lung consistent with the history of prior right upper lobectomy. There is a streaky parenchymal opacity in the left midlung zone which is new or more prominent compared to prior study and could represent an area of subsegmental atelectasis. No dense consolidation is seen and there is no other change. 05/27/2016: US ABDOMEN (RUQ) LIMITED- 1. Status post CCKY with no evidence of intra or extrahepatic biliary ductal dilatation. CBD 4 mm. Normal liver. 2. Incomplete view of the pancreatic head and tail. Visualized portions of the pancreas appear atrophic, but otherwise unremarkable. 3. Exophytic upper pole right renal cyst. 4. Previously demonstrated extrarenal pelvis and dilated right ureter not seen on this exam versus resolved in the interim. 05/27/2016: HEPATIC ULTRASOUND WITH DOPPLER- Normal hepatic Doppler ultrasound with patent hepatic arteries, patent and normally directed portal veins and hepatic veins. Intrahepatic IVC patent.
[2016-05-29 07:53] LABS: ABSOLUTE BASOPHIL COUNT 0 /CUMM (0.0-0.2); ABSOLUTE EOSINOPHIL COUNT 0.1 /CUMM (0.0-0.7); ABSOLUTE GRANULOCYTE CT 5.7 /CUMM (1.4-6.5); ABSOLUTE LYMPH COUNT 1.8 /CUMM (1.2-3.4); ABSOLUTE MONOCYTE COUNT 0.4 /CUMM (0.10-0.60); BASOPHIL % 0.3 % (0.0-2.0); EOSINOPHIL % 0.7 % (0-5); GRANULOCYTE % 71.2 % (42.2-75.2); HEMATOCRIT 28.9 % (37-47); MEAN CORPUSCULAR HGB 28.5 PG (27.0-31.0); MEAN CORPUSCULAR HGB CONC 33.3 G/DL (33.0-37.0); MEAN CORPUSCULAR VOLUME 85.6 FL (81.0-99.0); MEAN PLATELET VOLUME 8.1 FL (7.4-10.4); PLATELET COUNT 340 /CUMM (130-400); RBC DISTRIBUTION WIDTH 19.5 % (11.5-14.5); RED BLOOD CELL CT 3.37 /CUMM (4.20-5.40)
[2016-05-29 08:21] LABS: PT 15.8 SEC (9.4-12.5)
[2016-05-29 08:35] VITALS: BP 158/70
--- NOTE | 2016-05-29 09:56 | PN- Cardiology ---
Subjective Subjective: * No chest discomfort or shortness of breath. She reports a chronic abdominal discomfort. * sinus rhythm * severely elevated hepatic transaminases on admission Objective Vital Signs and I&Os Vital Signs Date Time Temp Pulse Resp B/P Pulse O2 O2 Flow FiO2 Ox Delivery Rate 05/29 0911 150/70 05/29 0911 150/74 05/29 0842 96 Nasal 2.0L Cannula 05/29 0835 98.1 62 20 158/70 96 Nasal 2.0L Cannula 05/29 0816 94 Nasal 2.0L Cannula 05/29 0048 98.0 53 20 140/80 96 Nasal 2.0L Cannula 05/29 0000 Nasal 2.0L Cannula 05/28 2108 54 148/56 05/28 2009 97 Nasal 2.0L Cannula 05/28 1713 98.0 57 20 138/70 95 Nasal 3.0L Cannula 05/28 1600 95 Nasal 2.0L Cannula 05/28 1246 Nasal 2.0L Cannula 05/28 1245 96 Nasal 2.0L Cannula Intake & Output 05/29 1600 05/29 0800 05/29 0000 05/28 1600 05/28 0800 05/28 0000 Intake Total 150 400 440 250 550 Output Total 400 Balance 150 0 440 250 550 Intake, IV 0 300 Intake, Oral 150 400 440 250 250 Number 0 2 1 1 Bowel Movements Output, Urine 400 Patient 130 lb Weight Physical Exam: General: WD/overweight female in NAD; alert and oriented x 3 HEENT: NC/AT, PERRL, EOMI, clear oropharynx Neck: no JVD, no carotid bruit Heart: RRR w/o murmur Lungs: clear bilaterally Abdomen: soft, obese, mild tnederness, +ve bowel sounds Ext: no edema Assessment/Plan Assessment/Plan * Continue to hold Atorvastatin and Amiodarone and follow her hepatic transaminases. * currently in a stable sinus rhythm Continue telemetry? Yes
--- NOTE | 2016-05-29 10:41 | PN- Housestaff ---
DO COKER 05/29/16 1041: Subjective Follow-up For: Influenza A Transaminitis Hyponatremia Tele-Events Since Last Visit: No overnight events, sinus rhythm Subjective: Seen and examined patient, continues to feel nauseated and not able to eat. Continues have right upper quadrant discomfort. Denies fever, chills, shortness of breath, easy bruising, jaundice. Review of Systems Constitutional: Denies: chills, diaphoresis, fever, malaise, weakness, unexplained weight loss. Cardiovascular: Denies: chest pain, edema, orthopena, palpitations, peripheral edema, syncope. Respiratory: Denies: cough, hemoptysis, orthopnea, short of breath, sputum production, stridor, wheezing. Neurological/Psychological: Reports: tremors. Objective Last 24 Hrs of Vital Signs/I&O Vital Signs Date Time Temp Pulse Resp B/P Pulse O2 O2 Flow FiO2 Ox Delivery Rate 05/29 1540 98.4 56 20 152/70 96 Nasal 2.0L Cannula 05/29 0911 150/70 05/29 0911 150/74 05/29 0842 96 Nasal 2.0L Cannula 05/29 0835 98.1 62 20 158/70 96 Nasal 2.0L Cannula 05/29 0816 94 Nasal 2.0L Cannula 05/29 0048 98.0 53 20 140/80 96 Nasal 2.0L Cannula 05/29 0000 Nasal 2.0L Cannula 05/28 2108 54 148/56 05/28 2009 97 Nasal 2.0L Cannula 05/28 1713 98.0 57 20 138/70 95 Nasal 3.0L Cannula Intake & Output 05/29 1600 05/29 0800 05/29 0000 Intake Total 400 150 400 Output Total 400 Balance 400 150 0 Intake, Oral 400 150 400 Number 0 Bowel Movements Output, Urine 400 Patient 130 lb Weight Physical Exam General Appearance: Alert, Oriented X3, Cooperative, No Acute Distress HEENT: PERRLA, dry mucous membranes Cardiovascular: Regular Rate, Normal S1, Normal S2 Lungs: Clear to Auscultation, Normal Air Movement Abdomen: Normal Bowel Sounds, right upper quadrant tenderness to palpation Neurological: right hand tremors Current Medications: Current Medications Sig/Jonel Start time Last Medication Dose Route Stop Time Status Admin Albuterol Sulfate 3 ML BID 05/28 2200 AC 05/29 INH 0840 Benzonatate 100 MG TIDPRN PRN 05/29 0345 AC 05/29 PO 1043 Diltiazem HCl 120 MG DAILY 05/27 1813 AC 05/29 PO 0911 Enoxaparin Sodium 40 MG DAILY@1500 05/29 1530 AC SC Insulin Aspart 0 TIDAC 05/28 0800 AC SC Ipratropium Manteno 2.5 ML BID 05/28 2200 AC 05/29 INH 0840 Levothyroxine Sodium 0.1 MG DAILY AC 05/28 0700 AC 05/29 PO 0559 Lisinopril 40 MG DAILY 05/27 1815 AC 05/29 PO 0911 Magnesium Oxide 400 MG DAILY 05/28 1000 AC 05/29 PO 0911 Metoprolol Tartrate 25 MG BID 05/27 2200 AC 05/29 PO 0911 Oseltamivir Phosphate 30 MG BID 05/29 1000 AC 05/29 PO 06/01 1001 0912 Oseltamivir Phosphate 30 MG BID 05/27 2200 DC 05/28 PO 05/31 2159 2108 Trimethobenzamide HCl 200 MG .STK-MED ONE 05/29 0040 DC IM 05/29 0041 Trimethobenzamide HCl 200 MG TIDPRN PRN 05/27 2330 AC 05/29 IM 0044 Last 24 Hrs of Lab/Twan Results Last 24 Hrs of Labs/Mics: Laboratory Tests 05/29/16 0635: Anion Gap 3 L, Estimated GFR > 60, BUN/Creatinine Ratio 20.0, Magnesium 1.6, Total Bilirubin 0.8, Direct Bilirubin 0.7 H, AST 1524 H, ALT 1923 H, Alkaline Phosphatase 111, Total Protein 6.3, Albumin 3.1 L, PT 15.8 H, INR 1.51 H, CBC w Diff NO MAN DIFF REQ, RBC 3.37 L, MCV 85.6, MCH 28.5, RDW 19.5 H, MPV 8.1, Gran % 71.2, Lymphocytes % 22.9, Monocytes % 4.9, Eosinophils % 0.7, Basophils % 0.3, Absolute Granulocytes 5.7, Absolute Lymphocytes 1.8, Absolute Monocytes 0.4 , Absolute Eosinophils 0.1, Absolute Basophils 0, PUBS MCHC 33.3, Infectious [place] Titer NEGATIVE Microbiology 05/28 193 URINE ROUT: Legionella Antigen - COMP Assessment/Plan Assessment: 80 year old paraplegic woman with past medical history of COPD on 2 L of home oxygen, hypertension, Adenoca of colon s/p status post sigmoid resection 2008 , diastolic heart disease, CAD, [place] s/p angioplasty,paroxysmal atrial fibrillation on Eliquis, 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 afebrile, labs pertinant for transaminitis, hypernatremia, flu swab positive for influenza A, CXR shows no evidence of pneumonia. Abd US shows that she status post cholecystectomy with no biliary ductal dilatation and no masses. Patient continues to be nauseated kidney is to have decreased by mouth intake. Complains of right hand tremors which is chronic in nature. No alteration in mentation, jaundice, active bleeding, continues to have episodes of diarrhea. Problem list: Influenza transaminits hypovolemic hypernatremia COPD exacerbation PAF CAD HTN h/o of colon cancer h/o of lung cancer HFpEF Hypothyroidism Diabetes Diarrhea Plan: TRC/nebs Renally and geriatric dosed tamiflu, 30 mg BID 2/7 day Continue holding amiodarone, Cardio consulted. Appreciate recommendations Continue toprol and cardizem. Hepatitis panel, EBV/CMV, mono spot negative LORIE, Aldolase pending, CK Last Echo in 2014 shows EF of 55% GI on board appreciated recommendations Will hold all hepatoxic med such as lipitor,tramadol, zofran and requests holding zofran for [id number]. would give tigan or get repeat ekg if pt nauseous will continue her ELiqius, lisinopril, lopressor, levothryoxine. monitor fingersticks, on insulin sliding scale Will follow-up serum and urine osmolality for hyponatremia Diet: CC3 DVT prophylaxis: As half-life of eliquis is 8 hrs and there is risk of of thrombotic events upon discontinuation, will start sc lovenox. DNR/DNI pain pathway: will hold off due to her transaminitis, she is allergic to morphine and codeine Problem List: 1. CHF (congestive heart failure) 2. Influenza A 3. Transaminitis 4. COPD (chronic obstructive pulmonary disease) Pain Ratin Pain Location: na Pain Goal: Pain 4 or less Pain Plan: current regimen Tomorrow's Labs & Rationales: LFT, bep, serum and urine osmol SAMMY VENCES,CLARK 05/29/16 1107: Attending MD Review Statement Attending Statement Attending MD Statement: examined this patient, discuss w/resident/PA/LIBRARY TECHNOLOGY INSTRUCTOR, agreed w/resident/PA/LIBRARY TECHNOLOGY INSTRUCTOR, reviewed EMR data (avail), discussed with nursing, discussed with case mgmt Attending Assessment/Plan: Patient seen and examined. Plan of care discussed with the medical team and the patient. Available lab work and radiology test reports were reviewed. Patient is feeling better. She denies any difficulty breathing or respiratory distress. She denies any chest pain or recent fever. Her vital signs are stable except for slightly elevated systolic pressure of 150. She is currently on 2 L of oxygen with the 96% saturation. Chest exam shows few scattered basal crepitations. Abdomen shows right upper quadrant mild discomfort and palpation tenderness. Labs were reviewed. WBC count is 8. Sodium is 130. AST has decreased to 1524 and ALT has decreased to 1923. INR is 1.51. Assessment and plan * Influenza- complete Tamiflu course * Acute hepatitis likely secondary to amiodarone- continue to hold amiodarone; recheck LFTs tomorrow * History of A. fib- eliquis currently on hold * Hyponatremia- recheck sodium level tomorrow; consider checking random cortisol , urine and serum osmolality.
--- NOTE | 2016-05-29 13:28 | Cons- Pulmonary ---
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 Cough started 5 days ago and was initially nonproductive and the last two days she has been having yellowis expectoration. Vomitus is nonbloody and mainly non digested food and is of two days duration. She has been unable to keep anything down since the past two days. She lives with her daughter and her daughter has simillar symptoms. Does not report increase in Oxygen requirements. Reported RUQ abdominal pain. Denies fever, chills, chest pain, new myalgias, change in bowel or bladder habits. Since she came in she has postive influenza swab and has had transaminitis This am feels well Review of Systems Constitutional: Denies: chills, diaphoresis, fever, malaise, weakness, unexplained weight loss. Cardiovascular: Denies: chest pain, edema, orthopena, palpitations, peripheral edema, syncope. Respiratory: Reports: cough, short of breath, sputum production. Denies: hemoptysis, orthopnea, stridor, wheezing. GI: Denies: abdominal pain, bloating, constipation, diarrhea, distention, bowel incontinence, melena, nausea, bloody stool, changes in stool, vomiting, steatorrhea. Genitourinary: Denies: discharge, dysuria, frequency, hematuria, hesitation, nocturia, pain, urgency. Skin: Denies: jaundice, rash. Allergies/Medications Allergies: Coded Allergies: amlodipine (Severe, C/P 05/27/16) codeine (Severe, C/P 05/27/16) morphine (Severe, C/P 05/27/16) omeprazole (Severe, C/P 05/27/16) Home Med List: Albuterol Sulfate/Ipratropiu (Duoneb) 3 MG/3 ML NEB 1 Vial INH/ROCIO PRN DYSPNEA (Reported) Amiodarone Hydrochloride (Amiodarone) 200 MG TAB 1 TAB PO DAILY HEART RHYTHM (Reported) Amlodipine (Norvasc 5MG Tab) 5 MG TAB 1.5 TAB PO DAILY HIGH BP Apixaban (Eliquis) 2.5 MG TAB 1 TAB PO BID BLOOD THINNER (Reported) Atorvastatin Calcium (Lipitor) 20 MG TABLET 1 TAB PO DAILY CHOLESTEROL ( Reported) Ciprofloxacin (Cipro) 500 MG TAB 1 TAB PO BID UTI Ciprofloxacin HCl (Cipro) 500 MG TABLET 1 TAB PO BID UTI Dicyclomine Hydrochloride (Bentyl) 10 MG CAPSULE 1 CAP PO TID PRN ABDOMINAL SPASMS DILTIAZEM HCL (Cardizem Cd) 120 MG CER 1 TAB PO DAILY HEART RATE (Reported) Levothyroxine Sodium 0.1 MG TAB 1 TAB PO DAILY HYPERTHYROIDISM PLEASE TAKE THIS TABLET IN AM. Lisinopril 40 MG TAB 1 TAB PO DAILY HYPERTENSION Lorazepam (Ativan) 0.5 MG TAB 1 TAB PO Q6-8P PRN ANXIETY (Reported) Magnesium Oxide 400 MG TABLET 1 TAB PO DAILY MINERAL SUPPLEMENT (Reported) METFORMIN HCL (Metformin Hydrochloride) 500 MG TABLET 1 TAB PO DAILY DIABETES MELLITUS (Reported) Metoprolol Tartrate (Lopressor) 25 MG TAB 1 TAB PO BID BLOOD PRESSURE Nystatin (Mycostatin Powder) 15 GM PWD 1 JC TOP TID PRN fungal rash Ondansetron (Zofran Odt) 4 MG TAB.RAPDIS 1 TAB SL TID PRN nausea Ondansetron (Zofran Odt) 4 MG TAB.RAPDIS 1 TAB SL TID PRN NAUSEA Prednisone 20 MG TAB 1 TAB PO DAILY SOB TRAMADOL HCL (Tramadol) 50 MG TAB 1 TAB PO TID PRN PAIN Review of Systems Review of Systems Constitutional: Reports: see HPI. Past History Travel History Traveled to [place] past 21 day No Medical History Blood Transfusion Hx: Yes Neurological: B/L LE weakness, post spine fx/fall intention tremor EENT: epistaxis Cardiovascular: AFIB (PAF), CAD (s/p stent to RCA vs PTCA), CHF, hypertension, hyperlipidemia, myocardial infarction Respiratory: COPD, interstitial lung disease, LUNG CA RUL LOBECTOMY O2 DEPENDENT 2-3L Gastrointestinal: lactose intolerance, [id number], SIGMOID COLECTOMY 02/13 colonoscopy fair prep - tics but no polyps 02/13- egd gastritis DIVERTICULOSIS COLI Hepatic: NONE Renal: urinary incontinence Musculoskeletal: chronic back pain (post fall), degen joint disease, BROKEN BACK 15 YEARS AGO UNABLE TO BEAR WEIGHT Psychiatric: anxiety Endocrine: diabetes, hypothyroidism Blood Disorders: NONE (chronic), anemia Cancer(s): lung cancer (s/p RUL lobectomy SC Ca), AdenoCa in situ- sigmoid resection 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 , Age 70. FHx: stomach cancer FATHER ("some type of Ca"- not colon Ca). , Age 63. FH: cancer BROTHER FH: prostate cancer Psychosocial History Where Do You Live? Home Who Do You Live With? child, SHE LIVES WITH HER DAUGHTER Services at Home: Nursing, Oxygen Primary Language: Romansh Smoking Status: Former Smoker ETOH Use: denies use Illicit Drug Use: denies illicit drug use Living Will? yes (DNR/DNI) Power of Online Affiliate Marketing Manager/HCP? yes Name of POA/HCP: Pt's son, Constantino Boston Other Social History: . Lives with her daughter. 4 children, A&W (2 sons & 2 dtrs). Pt's son, Constantino Boston, is identified as POA. Ex 15 pk yr cigarettee smoker, D/C 1998. Minimal EtOH in past, none recently. No drugs or IVDA. No tattoos. 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 Ambulation: non-ambulatory (W/C) IADLs Needs Assist: shopping, housework, finances, food prep, telephone, transportation, medication admin. 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 [employer] ECHO Results (as available) Date of last Echo 08/23/14 EF% 55 Exam & Diagnostic Data Last 24 Hrs of Vital Signs/I&O Vital Signs Date Time Temp Pulse Resp B/P Pulse O2 O2 Flow FiO2 Ox Delivery Rate 05/29 0911 150/70 05/29 0911 150/74 05/29 0842 96 Nasal 2.0L Cannula 05/29 0835 98.1 62 20 158/70 96 Nasal 2.0L Cannula 05/29 0816 94 Nasal 2.0L Cannula 05/29 0048 98.0 53 20 140/80 96 Nasal 2.0L Cannula 05/29 0000 Nasal 2.0L Cannula 05/28 2108 54 148/56 05/28 Nasal 2.0L Cannula 05/28 1713 98.0 57 20 138/70 95 Nasal 3.0L Cannula 05/28 1600 95 Nasal 2.0L Cannula Intake & Output 05/29 1600 05/29 0800 05/29 0000 Intake Total 150 400 Output Total 400 Balance 150 0 Intake, Oral 150 400 Number 0 Bowel Movements Output, Urine 400 Last 48 Hrs of Labs/Twan: Laboratory Tests 05/29/16 0635: Anion Gap 3 L, Estimated GFR > 60, BUN/Creatinine Ratio 20.0, Magnesium 1.6, Total Bilirubin 0.8, Direct Bilirubin 0.7 H, AST 1524 H, ALT 1923 H, Alkaline Phosphatase 111, Total Protein 6.3, Albumin 3.1 L, PT 15.8 H, INR 1.51 H, CBC w Diff NO MAN DIFF REQ, RBC 3.37 L, MCV 85.6, MCH 28.5, RDW 19.5 H, MPV 8.1, Gran % 71.2, Lymphocytes % 22.9, Monocytes % 4.9, Eosinophils % 0.7, Basophils % 0.3, Absolute Granulocytes 5.7, Absolute Lymphocytes 1.8, Absolute Monocytes 0.4 , Absolute Eosinophils 0.1, Absolute Basophils 0, PUBS MCHC 33.3, Infectious [place] Titer NEGATIVE 05/28/16 1341: Infectious [place] Titer Cancelled 05/28/16 0724: Anion Gap 6, Estimated GFR > 60, BUN/Creatinine Ratio 21.4, Total Bilirubin 0.8, Direct Bilirubin 0.8 H, AST 2553 H, ALT 2148 H, Alkaline Phosphatase 114, Creatine Kinase 91, Total Protein 6.1 L, Albumin 3.0 L, TSH 0.662, Free T4 3.63 H, CBC w Diff NO MAN DIFF REQ, RBC 3.35 L, MCV 85.3, MCH 28.4, RDW 19.4 H, MPV 7.8, Gran % 73.1, Lymphocytes % 20.7, Monocytes % 5.7, Eosinophils % 0.3, Basophils % 0.2, Absolute Granulocytes 6.1, Absolute Lymphocytes 1.7, Absolute Monocytes 0.5, Absolute Eosinophils 0, Absolute Basophils 0, PUBS MCHC 33.3, LORIE Titer ND, Anti-Nuclear Antibody NEG 1:40 IFA ASSAY 05/27/16 1816: Total Bilirubin Cancelled, Direct Bilirubin Cancelled, AST Cancelled, ALT Cancelled, Alkaline Phosphatase Cancelled, Total Protein Cancelled, Albumin Cancelled 05/27/16 1620: Virus Culture Pending Microbiology 05/28 1929 URINE ROUT: Legionella Antigen - COMP 05/27 1619 NASOPHARYN: Influenza Virus A & B Rapid Smear - COMP INFLUENZA TYPE A SIGNIFICANT DATA Abdominal ultrasound was unremarkable status post cholecystectomy renal cyst. Chest x-ray showed chronic changes streaky opacity in the right lower lobe and left mid zone. No consolidation. CT scan of the chest done in March showed atherosclerotic disease cardiomegaly small loculated pleural effusion in the right posterior hemithorax which is chronic mild emphysema. BUN/creatinine stable anion gap normal. AST ALT were significantly elevated which is improving her BNP was 7110 white count 8000 this morning hemoglobin 9.6 which is chronically low no significant left shift cultures nasal swab showed influenza Medication reviewed Assessment/Plan Impression/Plan: Physical Exam General Appearance Alert, Oriented X3, Cooperative, Mild Distress Skin No Rashes, No Breakdown, No Significant Lesion HEENT Atraumatic, PERRLA, dry mucous membranes Neck Supple, No JVD, +2 Carotid Pulse wo Bruit Lymphatic Cervical nl Cardiovascular Normal S1, Normal S2, distant heart sounds Lungs b/l rhonchi and scattered wheezes Abdomen Normal Bowel Sounds, Soft, No Tenderness Extremities No Edema This is a 79-year-old lady with ischemic heart disease, recurrent hospital admission, previous, 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 now presumed cured, hypertension, paroxysmal atrial fibrillation on amiodarone and anticoagulation, previous tachycardia-induced acute for edema, drug-eluting stent to the RCA in May 2014, paraplegia, nosebleeds, chronic anemia with recent negative GI workup, recurrent bronchitis with mild interstitial lung disease, moderate obstructive pulmonary disease as well now comes in with * Influenza with bronchitis * Significant abdominal pain especially in the right upper quadrant area in a lady with previous constipation and stool impaction, ultrasound negative pain seems chronic * Sig transaminitis neg ultrasound * Chronic anemia with previous recurrent epistaxis with chronic sinusitis stable * No significant evidence suggestive of acute COPD exacerbation * Atelectasis which is chronic * Paroxysmal atrial fibrillation was on eloquis now in sinus * Previous PCI with stent, on eloquis not on any antiplatelet therapy as she has had recurrent bleeding in the past GI workup pending * 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
[2016-05-29 15:40] VITALS: BP 152/70
[2016-05-29 23:49] VITALS: BP 170/60
--- NOTE | 2016-05-30 07:12 | ECHOCARDIOGRAM REPORT ---
VINCENT DRUMMOND Age: 80 : 1935 Gender: F Exam Date: 05/29/2016 18:48 Exam Location: [place] Ht (in): 62 Wt (lb): 129 BSA: 1.61 BP: 150 / 70 Ordering Physician: ANUPAMA SHAH MD Referring Physician: Padilla Langley MD, PhD Technologist: Gayle Dickerson [facility] Room Number: 176 Indications: AFIB/FLUTTER Rhythm: Sinus Technical Quality: good FINDINGS Left Ventricle Normal left ventricular size with mild left ventricular hypertrophy. Normal systolic function with no obvious regional wall motion abnormalities. Normal left ventricular diastolic filling pattern for age. The ejection fraction is visually estimated at 70%. Right Ventricle The right ventricle is normal in size and function. Right Atrium The right atrium is normal in size. Left Atrium The left atrium is normal in size. The interatrial septum is intact. Mitral Valve The mitral valve demonstrates mild to moderate posterior annular calcification with normal function. There is moderate mitral regurgitation. Aortic Valve Structurally normal aortic valve without significant sclerosis or stenosis. There is mild aortic regurgitation. Tricuspid Valve The tricuspid valve is normal in structure and function. There is mild tricuspid regurgitation. Pulmonary artery systolic pressure is mildly elevated to 39.6mmHg. Pulmonic Valve Structurally normal pulmonic valve. There is no pulmonic regurgitation. Pericardium Normal pericardium without effusion. No pleural effusion. Great Vessels Normal aortic root dimension. The aortic arch and great vessels are well seen and are normal. CONCLUSIONS 1. Normal EF of 70%. 2. Mild left ventricular hypertrophy. 3. Moderate mitral regurgitation. 4. Mild tricuspid regurgitation. 5. Mild aortic regurgitation. 6. Mild pulmonary hypertension. Padilla Langley M.D. (Electronically Signed) Final Date: 30 May 2016 07:11 MEASUREMENTS (Male / Female) Normal Values 2D ECHO LV Diastolic Diameter PLAX 4.1 cm 4.2 - 5.9 / 3.9 - 5.3 cm LV Systolic Diameter PLAX 2.2 cm 2.1 - 4.0 cm LV Fractional Shortening PLAX 46.3 % 25 - 46 % LV Ejection Fraction 2D Teich 78.2 % IVS Diastolic Thickness 1.2 cm LVPW Diastolic Thickness 1.2 cm LV Relative Wall Thickness 0.6 RV Internal Dim ED PLAX 2.4 cm 1.9 - 3.8 cm LVOT Diameter 1.8 cm Aortic Root Diameter 2.6 cm LA Systolic Diameter LX 3.8 cm 3.0 - 4.0 / 2.7 - 3.8 cm LA Volume 62.0 cm 18 - 58 / 22 - 52 cm Ascending Aorta Diameter 3.0 cm DOPPLER AV Peak Velocity 138.0 cm/s AV Peak Gradient 7.6 mmHg AV Mean Velocity 99.0 cm/s AV Mean Gradient 4.0 mmHg AV Velocity Time Integral 35.8 cm LVOT Peak Velocity 91.9 cm/s LVOT Peak Gradient 3.4 mmHg LVOT Mean Velocity 65.1 cm/s LVOT Mean Gradient 2.0 mmHg LVOT Velocity Time Integral 22.7 cm LVOT Stroke Volume 57.8 cm AV Area Cont Eq vti 1.6 cm AV Area Cont Eq pk 1.7 cm MV Peak Velocity 145.0 cm/s MV Peak Gradient 8.4 mmHg MV Mean Velocity 68.9 cm/s MV Mean Gradient 2.0 mmHg Mitral E Point Velocity 136.7 cm/s Mitral A Point Velocity 74.0 cm/s Mitral E to A Ratio 1.8 MV PHT Velocity 145.0 cm/s MV Deceleration [place] 463.0 cm/s MV Pressure Half Time 94.0 ms MV Area PHT 2.3 cm MV Deceleration Time 192.0 ms MR Peak Velocity 463.0 cm/s MR Peak Gradient 85.7 mmHg MR ERO PISA 0.3 cm MR Regurgitant Volume PISA 53.2 cm TR Peak Velocity 294.0 cm/s TR Peak Gradient 34.6 mmHg Right Atrial Pressure 5.0 mmHg Pulmonary Artery Systolic Pressu 39.6 mmHg Right Ventricular Systolic Press 39.6 mmHg LV E' Lateral Velocity 6.4 cm/s Mitral E to LV E' Lateral Ratio 21.3 LV E' Septal Velocity 4.0 cm/s Mitral E to LV E' Septal Ratio 34.2
--- NOTE | 2016-05-30 07:21 | Cons- Wound Care ---
General Information and HPI Consulting Request Date of Consult: 05/30/16 Requested By: BEHZAD CASTRO MD Reason for Consult: Right lateral foot ulcer present on admission History of Present Illness: Patient is an 80-year-old with multiple medical problems admitted with flu and found to have an ulcer over the lateral aspect of her right foot. She reports having used a microwavable heating gel applied to her foot because they were cold. She subsequently developed a burn approximately a month ago. She is unaware of peripheral vascular disease. Allergies/Medications Allergies: Coded Allergies: amlodipine (Severe, C/P 05/27/16) codeine (Severe, C/P 05/27/16) morphine (Severe, C/P 05/27/16) omeprazole (Severe, C/P 05/27/16) Home Med List: Albuterol Sulfate/Ipratropiu (Duoneb) 3 MG/3 ML NEB 1 Vial INH/ROCIO PRN DYSPNEA (Reported) Amiodarone Hydrochloride (Amiodarone) 200 MG TAB 1 TAB PO DAILY HEART RHYTHM (Reported) Amlodipine (Norvasc 5MG Tab) 5 MG TAB 1.5 TAB PO DAILY HIGH BP Apixaban (Eliquis) 2.5 MG TAB 1 TAB PO BID BLOOD THINNER (Reported) Atorvastatin Calcium (Lipitor) 20 MG TABLET 1 TAB PO DAILY CHOLESTEROL ( Reported) Ciprofloxacin (Cipro) 500 MG TAB 1 TAB PO BID UTI Ciprofloxacin HCl (Cipro) 500 MG TABLET 1 TAB PO BID UTI Dicyclomine Hydrochloride (Bentyl) 10 MG CAPSULE 1 CAP PO TID PRN ABDOMINAL SPASMS DILTIAZEM HCL (Cardizem Cd) 120 MG CER 1 TAB PO DAILY HEART RATE (Reported) Levothyroxine Sodium 0.1 MG TAB 1 TAB PO DAILY HYPERTHYROIDISM PLEASE TAKE THIS TABLET IN AM. Lisinopril 40 MG TAB 1 TAB PO DAILY HYPERTENSION Lorazepam (Ativan) 0.5 MG TAB 1 TAB PO Q6-8P PRN ANXIETY (Reported) Magnesium Oxide 400 MG TABLET 1 TAB PO DAILY MINERAL SUPPLEMENT (Reported) METFORMIN HCL (Metformin Hydrochloride) 500 MG TABLET 1 TAB PO DAILY DIABETES MELLITUS (Reported) Metoprolol Tartrate (Lopressor) 25 MG TAB 1 TAB PO BID BLOOD PRESSURE Nystatin (Mycostatin Powder) 15 GM PWD 1 JC TOP TID PRN fungal rash Ondansetron (Zofran Odt) 4 MG TAB.RAPDIS 1 TAB SL TID PRN nausea Ondansetron (Zofran Odt) 4 MG TAB.RAPDIS 1 TAB SL TID PRN NAUSEA Prednisone 20 MG TAB 1 TAB PO DAILY SOB TRAMADOL HCL (Tramadol) 50 MG TAB 1 TAB PO TID PRN PAIN Review of Systems Review of Systems: She denies claudication Past History Travel History Traveled to [place] past 21 day No Medical History Blood Transfusion Hx: Yes Neurological: B/L LE weakness, post spine fx/fall intention tremor EENT: epistaxis Cardiovascular: AFIB (PAF), CAD (s/p stent to RCA vs PTCA), CHF, hypertension, hyperlipidemia, myocardial infarction Respiratory: COPD, interstitial lung disease, LUNG CA RUL LOBECTOMY O2 DEPENDENT 2-3L Gastrointestinal: lactose intolerance, [id number], SIGMOID COLECTOMY 02/13 colonoscopy fair prep - tics but no polyps 02/13- egd gastritis DIVERTICULOSIS COLI Hepatic: NONE Renal: urinary incontinence Musculoskeletal: chronic back pain (post fall), degen joint disease, BROKEN BACK 15 YEARS AGO UNABLE TO BEAR WEIGHT Psychiatric: anxiety Endocrine: diabetes, hypothyroidism Blood Disorders: NONE (chronic), anemia Cancer(s): lung cancer (s/p RUL lobectomy SC Ca), AdenoCa in situ- sigmoid resection 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 , Age 70. FHx: stomach cancer FATHER ("some type of Ca"- not colon Ca). , Age 63. FH: cancer BROTHER FH: prostate cancer Psychosocial History Where Do You Live? Home Who Do You Live With? child, SHE LIVES WITH HER DAUGHTER Services at Home: Nursing, Oxygen Primary Language: Yoruba Smoking Status: Former Smoker ETOH Use: denies use Illicit Drug Use: denies illicit drug use Living Will? yes (DNR/DNI) Power of Buffet Attendant/HCP? yes Name of POA/HCP: Pt's son, Constantino Boston Other Social History: . Lives with her daughter. 4 children, A&W (2 sons & 2 dtrs). Pt's son, Constantino Boston, is identified as POA. Ex 15 pk yr cigarettee smoker, D/C 1998. Minimal EtOH in past, none recently. No drugs or IVDA. No tattoos. 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 Ambulation: non-ambulatory (W/C) IADLs Needs Assist: shopping, housework, finances, food prep, telephone, transportation, medication admin. 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 [employer] ECHO Results (as available) Date of last Echo 08/23/14 EF% 55 Exam & Diagnostic Data Vital Signs and I&O Vital Signs Result Date Time O2 Delivery Nasal Cannula 05/30 0000 O2 Flow Rate 2.0L 05/30 0000 Pulse Ox 96 05/29 2349 B/P 170/60 05/29 2349 Temp 98.0 05/29 2349 Pulse 62 05/29 2349 Resp 12 05/29 2349 Intake & Output 05/30 0000 05/29 1600 05/29 0800 Intake Total 360 400 150 Output Total Balance 360 400 150 Intake, IV 10 Intake, Oral 350 400 150 Number 1 0 Bowel Movements Patient 130 lb Weight Exam of her right lateral foot shows there to be approximately 1.1 x 1.1 cm unstageable ulcer with 100% dry yellow fill is no periwound erythema undermining or exposed bone distal pulses and only be palpated Assessment/Plan Impression/Plan: 80-year-old woman with multiple medical problems admitted with the flu sustained a thermal injury to her right lateral foot. Presently the wound appears overly dry is no evidence of soft tissue skin infection there may be complicating peripheral vascular disease. Recommend moist wound care with Xeroform daily offload the area. If she fails to improve further evaluation of distal circulation would be necessary Consult Acknowledgment - Thank you for your consult request.
--- NOTE | 2016-05-30 07:47 | PN- Gastroenterology ---
Assessment/Plan Assessment/Recommendations: 80-year-old female, poor historian, post RUL lobectomy for squamous cell CA of the lung w/o adjuvant therapy, HTN/HLD/DM/hypoT4/ASHD post SD, paroxysmal atrial fibrillation on outpatient Eliquis & Amiodarone, 08/08/2008: post sigmoid resection for large sigmoid [id number], without any invasive component, lymph node negative, which was too large to remove via 07/27/2008: colonoscopy. (There is no FHx of colon Ca, but her mother may have had gastric Ca). 02/10/2010: Colonoscopy to the cecum- post sigmoid resection with clean anastomosis at 20 cm, tiny hyperplastic polyps, moderate pandiverticulosis coli left side greater than right, with only fair prep after a gallon of TriLyte. In view of the above and the history of an advanced adenoma, I advised a follow-up colonoscopy was advised 2 years later, namely for 02/2012; however, the patient was not compliant with this. 02/04/2014: Covering EGD by Dr. Gerald Maldonado- mild gastritis, H. pylori-negative, CHULA brushings of esophagus positive (? Diflucan rxd). 02/05/2014: Attempted colonoscopy to 10 cm- terminated because of stool. 02/06/2014: Colonoscopy to TI- clean surgical anastomosis at 18 cm, post sigmoid resection, pandiverticulosis coli, normal TI, without any angiodysplasias or recurrent polyps or lesions. Patient had intermittent anemia and OB positive stool then. Her anticoagulation therapy was resumed at that point. Apparently, she saw Dr. Walter Maldonado for outpatient GI f/u after that [facility] & a decision was made to defer a PillCam unless her anemia recurred. 01/17/2012: nl IgA 382, tTG Ab- negative Her other numerous issues include COPD on home O2-2L nc Qhs, spinal cord injury reportedly wheelchair-bound with (waist down) B/L lower extremity paraplegia, diastolic CHF, cardiac stent placement (?type) vs. RCA PTCA in 05/2014, lactose intolerance, APPY, CCKY, cataract surgery, tubal ligation & hx epistaxis. The patient has had numerous admissions for intermittent OB positive stool and multifactorial anemia. *Outpatient PillCam has never been done. She was last admitted to [facility] 05/05/2015 - 05/07/2015, with exacerbation of COPD, hypertension, & UTI. The patient presented to the [place] [facility] 05/27/2016 at 12:15 p.m., complaining of cough productive of yellowish sputum and symptoms of URI, congestion & wheezing. Upon arrival, BP 153/75, P 65, R 22, T 98.6, O2 sat RA 93%. She had some mild nausea and vomiting, with bilious contents. There was no overt GI bleeding, hematemesis, or melena. She denied any GERD, odynophagia, dysphagia, or early satiety. She had decreased po intake for 2 days [employer] WORK[employer]. She denied any fevers or chills, but was more short of breath than usual. There was no chest pain. She denied any abdominal pain (her story changed from time to time). She reportedly had diarrhea over week ago, which resolved, without any constipation, obstipation, or tenesmus. *There was no documented hypotension. Her transaminases (AST/ALT), were subsequently found to be significantly elevated, prompting the GI consult. *Please note, in addition to Amiodarone, she was on outpatient Atorvastatin. *The AST/ALT (162/167), were minimally elevated in the [place] [facility] , in the setting of elevated BNP 59402. She denied any jaundice, dark urine, light stool, or pruritus. She denied any NSAID or Tylenol use. A flu swab was positive for acute influenza. There was no evidence of pneumonia on chest x-ray, just COPD and old RLL resection. She was started on Tamiflu, per the medical team. She remotely had mild amounts of alcohol, none recently. She is an ex [id number] cigarette smoker, stopping 1998. She denied any known history of previous viral hepatitis. She has been transfused in the past. There is no history of needle sticks, tattoos, or IVDA. She denied any recent travel, herbal medications, or raw foods. There were no definite myalgias or acute arthralgias. There was no acute rash. She denied any symptoms of UTI. The patient was given Prednisone, Albuterol, Atrovent, Ceftriaxone, & Azithromycin in the ER. *Imaging studies of the RUQ on admission, per ER- negative post cholecystectomy. *I also requested Doppler studies of the HV/PV, which were negative. 05/27/2016: *Rapid viral influenza A/B- nasopharyngeal swab- *positive influenza type A. 05/27/2016: BC x 2- negative x 1 day. 05/27/2016: Admission labs- WBC 10.8 (77% gran/8 gran Ab), H/H 10.4/31.5, normal MCV 85.8, elevated RDW 19.4, PLT 400, PT 25.6, INR 2.46, PTT 37, glucose 86, BUN /Cr 16/0.7, GFR > 60, Na 133, K 4.1, HCO3 27, AG 11, albumin 3.6, glob 3.5, TBil 1.1, alk phos 123, *AST 2312, *ALT 1633, troponin 0.04, *[Tylenol] < 10, elevated BNP 7110. 05/27/2016: EKG- NSR @ 62, LBBB, multifocal PVC. 05/27/2016: XRY-CHEST XRAY, PA AND LATERAL- There are are chronic changes in the right lung consistent with the history of prior right upper lobectomy. There is a streaky parenchymal opacity in the left midlung zone which is new or more prominent compared to prior study and could represent an area of subsegmental atelectasis. No dense consolidation is seen and there is no other change. 05/27/2016: US ABDOMEN (RUQ) LIMITED- 1. Status post CCKY with no evidence of intra or extrahepatic biliary ductal dilatation. CBD 4 mm. Normal liver. 2. Incomplete view of the pancreatic head and tail. Visualized portions of the pancreas appear atrophic, but otherwise unremarkable. 3. Exophytic upper pole right renal cyst. 4. Previously demonstrated extrarenal pelvis and dilated right ureter not seen on this exam versus resolved in the interim. 05/27/2016: HEPATIC ULTRASOUND WITH DOPPLER- Normal hepatic Doppler ultrasound with patent hepatic arteries, patent and normally directed portal veins and hepatic veins. Intrahepatic IVC patent. The significantly elevated transaminases (AST/ALT 2312/1633) on admission , were noted, which seemed incidental in nature, as the patient had no GI symptoms, except for some mild nausea and vomiting. She had a benign abdominal exam. She was admitted primarily for a flare of COPD and influenza. There was no documented hypotension to suggest "shock liver" (i.e.- ischemic hepatitis). Although her BNP was somewhat elevated 7110, there was no overt CHF on the admission chest x-ray. Her level of transaminase elevation was higher than one would expect with passive congestion, anway. Her Tylenol level is < 10. There is no significant EtOH, and the height & pattern of the transaminases are atypical for this. Rule out viral hepatitis, especially with positive influenza A. Rule out medication-induced (i.e.- Amiodarone/Atorvastatin). * Please note, Cardizem & Toprol have been reported to cause hepatitis, but these are less likely to do so than Amiodarone and/or Atorvastatin. Consider a component of skeletal muscle inflammation. Doubt AIH. *RUQ sono/Doppler HV/PV- negative for any acute pathology, post CCKY. *No evidence of vascular occlusion or Budd-Chiari syndrome. 05/27/2016: *Hep A Ab, Hep Bs Ag, Hep C Ab, & Hep B core Ab- all negative 05/27/2016: *viral culture- pending 05/28/2016: WBC 8.3, H/H 9.5/28.6, nl MCV, PLT 361 05/28/2016: nl CK 91, albumin 3.0, globulin 3.1, TBil 0.8, DBil 0.8, alk phos 114, *AST 2553, *ALT 2148, GFR > 60 *As of 05/28/2016, the patient remained hemodynamically stable (actually HTN- not hypotensive, regarding her elevated AST/ALT), & afebrile. O2 sat 2L nc- 96%. She remained in NSR. Atorvastatin and Amiodarone were held on admission. The medical team has continued her Eliquis. She remained on Cardizem and Toprol, both of which have been reported to cause hepatitis (although not as likely as Amiodarone or Atorvastatin). Cardiology input is pending. Tamiflu was prescribed on admission. The patient remains a poor historian. Apparently, she had some mild nausea without vomiting. She is on a heart healthy, DM diet. There was no abdominal pain or diarrhea. She denied any chills or rashes. There was no jaundice. She remained with URI symptoms and some mild shortness of breath, without any chest pain. She received 1 dose of IV Ceftriaxone in the ER 2016. She never received any Azithromycin, as her respiratory symptoms were probably viral/COPD in nature. *The patient was seen by cardiology 05/28/2016. Dr. Hager agree with continuing to hold Atorvastatin & Amiodarone. Eliquis was stopped on 2016. Metoprolol and Cardizem were continued for now, per cardiology, unless the patient's transaminases continue to rise. 05/28/2016: *Urine Legionelaa Ag- negative 05/28/2016: *LORIE- negative 1:40 05/29/2016: *[place] spot- negative *As of 05/29/2016, the patient remains hemodynamically stable and afebrile, on Tamiflu. O2 sat 2L nc 96%. She remains in NSR. Her breathing seems slightly improved, although she is wheezing. She has no symptoms referable to her liver. She has vague right-sided lower rib pain, reproducible by touch. 05/29/2016: ECHOCARDIOGRAM- 1. Normal EF of 70%. 2. Mild left ventricular hypertrophy. 3. Moderate mitral regurgitation. 4. Mild tricuspid regurgitation. 5. Mild aortic regurgitation. 6. Mild pulmonary hypertension. *As of 05/30/2016, the patient has no symptoms referable to her liver. Her LFTs and INR are resolving. She has mild B/L anterior rib pain B/L, but no objective abdominal tenderness. She remains afebrile and in NSR. O2 sat 2L - 96%. Her respiratory status is improving. [*Transaminitis probably viral vs. medication induced]. *SUGGEST: *Serial LFTs & INR daily. *Check EBV/CMV & Aldolase. *Await 05/27/2016: viral cultures. Tamiflu per medical team. *Continue to hold Amiodarone & Atorvastatin for now (cardiology agrees), until transaminases hopefully resolve. Continue to hold Eliquis for now until transaminitis improves (cardiology agrees), as there is a chance her INR will rise independent of the Eliquis, due to the transaminitis. *Carefully continue Cardizem & Toprol for now, as these are less likely to cause hepatitis than Amiodarone and/or Atorvastatin. *Consider B/L rib series. *Consider checking for Norovirus. *Consider checking for atypical PNA (i.e.- Mycoplasma; 05/28/2016: urine Legionella Ag- negative), which can cause elevated LFTs. Doubt tick-borne illness. Treatment of COPD and influenza as per medical team. Although the patient has a history of an advanced colon adenoma requiring surgical resection, in view of her advanced age and numerous comorbidities, probably no need for repeat surveillance colonoscopy, as it was last clean on 02/06/2014. DVT prophylaxis with mechanical ALPS (Lovenox vs. sc heparin okay if absolutely needed). The case was discussed with the medical house staff & previously with the patient's son, Constantino Boston & Dr. Hager. Further recommendations to follow, based on clinical course. Problem List: 1. Transaminitis 2. Influenza A 3. Anemia 4. History of colon cancer 5. Diverticulosis of colon Subjective Subjective: 05/29/2016: ECHOCARDIOGRAM- 1. Normal EF of 70%. 2. Mild left ventricular hypertrophy. 3. Moderate mitral regurgitation. 4. Mild tricuspid regurgitation. 5. Mild aortic regurgitation. 6. Mild pulmonary hypertension. *As of 05/30/2016, the patient has no symptoms referable to her liver. Her LFTs and INR are resolving. She has mild B/L anterior rib pain B/L, but no objective abdominal tenderness. She remains afebrile and in NSR. O2 sat 2L - 96%. Her respiratory status is improving. Review of Systems: Full 14 point ROS otherwise noncontributory, and as above Review of Systems Constitutional: Denies: chills, diaphoresis, fever, malaise, weakness, unexplained weight loss. EENTM: Denies: blurred vision, double vision, visual changes, eye pain, eye drainage, eye tearing, icterus, ear discharge, ear pain, ear redness, hearing changes, nasal congestion, epistaxis, nasal pain, throat pain, throat swelling, mouth pain, tooth pain. Cardiovascular: Denies: chest pain, edema, orthopena, palpitations, peripheral edema, syncope. Respiratory: Reports: cough (yellow sputum), short of breath (slightly better), sputum production, wheezing. Denies: hemoptysis, orthopnea, stridor. GI: Reports: nausea (mild), vomiting (gone). Denies: abdominal pain, bloating, constipation, diarrhea, distention, bowel incontinence, melena, bloody stool, changes in stool, steatorrhea. Genitourinary: Denies: discharge, dysuria, frequency, hematuria, hesitation, nocturia, pain, urgency. Musculoskeletal: Reports: chronic back pain, lower right rib pain. Denies: gout, joint pain, joint swelling, muscle pain, muscle stiffness, neck pain. Skin: Denies: cysts, change in skin color, change in hair/nails, dryness, erythema, jaundice, lesions, lymphangitis, lumps, moles, rash. Neurological/Psychological: Reports: anxiety, emotional problems, tremors (intention), unable to move lower ext. Denies: ataxia, cognitive dysfunction, confusion, depressed, dementia, headache, numbness, paresthesia, pre-existing deficit, petit mal seizures, tingling, tonic -clonic seizures, unable to move upper ext, weakness. Hematologic/Endocrine: Reports: bruising. Denies: bleeding, polyuria, polydipsia. Immunologic/Allergic: Denies: splenectomy, HIV/AIDS, lymphadenopathy. All Other Systems: Reviewed and Negative Objective Vital Signs and I&Os Vital Signs Date Time Temp Pulse Resp B/P Pulse O2 O2 Flow FiO2 Ox Delivery Rate 05/30 0000 Nasal 2.0L Cannula 05/29 2349 98.0 62 12 170/60 96 Nasal 2.0L Cannula 05/29 2108 62 160/64 05/29 1940 97 Nasal 2.0L Cannula 05/29 1600 94 Nasal 2.0L Cannula 05/29 1540 98.4 56 20 152/70 96 Nasal 2.0L Cannula 05/29 0911 150/70 05/29 0911 150/74 05/29 0842 96 Nasal 2.0L Cannula 05/29 0835 98.1 62 20 158/70 96 Nasal 2.0L Cannula 05/29 0816 94 Nasal 2.0L Cannula Intake & Output 05/30 1600 05/30 0400 05/29 1600 05/29 0400 05/28 1600 05/28 0400 Intake Total 100 360 550 400 690 550 Output Total 400 Balance 100 360 550 0 690 550 Intake, IV 10 0 300 Intake, Oral 100 350 550 400 690 250 Number 1 1 0 3 1 Bowel Movements Output, Urine 400 Patient 130 lb 130 lb Weight Physical Exam: Well-developed, chronically ill-appearing, elderly female in NAD, less tachypneic. Sclera anicteric. Conjunctiva pink. Oropharynx clear. No oral thrush. No aphthous ulcers. No stridor. There is no adenopathy, thyromegaly, or JVD. No HJR. No peripheral stigmata of inflammatory bowel disease or chronic liver disease on exam. No spiders on the anterior chest wall. No CVA tenderness. Lungs: Scattered bilateral end expiratory wheezing. No definite egophony. No rales or rhomchi. Slight decreased breath sounds RUL. *Tender lower ribs anteriorly B/L. Heart exam: currently regular rate rhythm (NSR clinically), S1 and S2, with I/ systolic murmur. Breast and pelvic exams: API. Abdominal exam: normal bowel sounds, soft belly, nontender, without guarding or rebound. No mass. No organomegaly. No fluid shift. No pulsatile mass. No epigastric bruits. Multiple well-healed scars. Digital rectal exam: deferred by patient. Extremities: without cyanosis or clubbing. Trace pedal edema B/L. Scant ulcer right foot. No palpable cords. No palmar erythema. No Dupuytren's contractures. Distal pulses 2+ bilaterally. DTRs 2+ bilaterally. Unable to move legs B/L. Alert and oriented x 3, but poor historian. + Intention tremor. No asterixis. Current Medications: Current Medications Sig/Jonel Start time Last Medication Dose Route Stop Time Status Admin Albuterol Sulfate 3 ML BID 05/28 2199 AC 05/29 INH 1940 Benzonatate 100 MG TIDPRN PRN 05/29 0345 AC 05/30 PO 0212 Diltiazem HCl 120 MG DAILY 05/27 1813 AC 05/29 PO 0911 Enoxaparin Sodium 40 MG DAILY@1500 05/29 1530 DC 05/29 SC 1846 Insulin Aspart 0 TIDAC 05/28 0800 AC 05/29 SC 1702 Ipratropium Barrett 2.5 ML BID 05/28 220 AC 05/29 INH 1940 Levothyroxine Sodium 0.1 MG DAILY AC 05/28 0700 AC 05/29 PO 0559 Lisinopril 40 MG DAILY 05/27 181 AC 05/29 PO 0911 Magnesium Oxide 400 MG DAILY 05/28 1000 AC 05/29 PO 0911 Melatonin 5 MG AT BEDTIME NEED.. 05/29 2330 AC 05/30 PO 0013 Metoprolol Tartrate 25 MG BID 05/27 2200 05/29 PO 2108 Oseltamivir Phosphate 30 MG BID 05/29 1000 AC 05/29 PO 06/01 1001 2106 Trimethobenzamide HCl 200 MG TIDPRN PRN 05/27 2329 05/30 IM 0133 Results Pertinent Lab Results: Laboratory Tests 05/30 05/29 05/28 0635 0635 1341 Chemistry Sodium (137 - 145 mmol/L) Pending 130 L Potassium (3.5 - 5.1 mmol/L) Pending 4.2 Chloride (98 - 107 mmol/L) Pending 99 Carbon Dioxide (22 - 30 mmol/L) Pending 28 Anion Gap (5 - 16) Pending 3 L BUN (7 - 17 mg/dL) Pending 12 Creatinine (0.5 - 1.0 mg/dL) Pending 0.6 Estimated GFR (>60 ml/min) > 60 BUN/Creatinine Ratio (7 - 25 %) Pending 20.0 Serum Osmolality Pending Magnesium (1.6 - 2.3 mg/dL) 1.6 Total Bilirubin (0.2 - 1.3 mg/dL) Pending 0.8 Direct Bilirubin (< 0.4 mg/dL) Pending 0.7 H AST (14 - 36 U/L) Pending 1524 H ALT (9 - 52 U/L) Pending 1923 H Alkaline Phosphatase (<127 U/L) Pending 111 Total Protein (6.3 - 8.2 g/dL) Pending 6.3 Albumin (3.5 - 5.0 g/dL) Pending 3.1 L Coagulation PT (9.4 - 12.5 SEC) 15.8 H INR (0.90 - 1.19) 1.51 H Hematology CBC w Diff NO MAN DIFF REQ WBC (4.8 - 10.8 /CUMM) 8.0 RBC (4.20 - 5.40 /CUMM) 3.37 L Hgb (12.0 - 16.0 G/DL) 9.6 L Hct (37 - 47 %) 28.9 L MCV (81.0 - 99.0 FL) 85.6 MCH (27.0 - 31.0 PG) 28.5 RDW (11.5 - 14.5 %) 19.5 H Plt Count (130 - 400 /CUMM) 340 MPV (7.4 - 10.4 FL) 8.1 Gran % (42.2 - 75.2 %) 71.2 Lymphocytes % (20.5 - 51.1 %) 22.9 Monocytes % (1.7 - 9.3 %) 4.9 Eosinophils % (0 - 5 %) 0.7 Basophils % (0.0 - 2.0 %) 0.3 Absolute Granulocytes (1.4 - 6.5 /CUMM) 5.7 Absolute Lymphocytes (1.2 - 3.4 /CUMM) 1.8 Absolute Monocytes (0.10 - 0.60 /CUMM) 0.4 Absolute Eosinophils (0.0 - 0.7 /CUMM) 0.1 Absolute Basophils (0.0 - 0.2 /CUMM) 0 PUBS MCHC (33.0 - 37.0 G/DL) 33.3 Serology Infectious [place] Titer (NEGATIVE) NEGATIVE Cancelled 05/28 05/27 0724 1816 Chemistry Sodium (137 - 145 mmol/L) 132 L Potassium (3.5 - 5.1 mmol/L) 4.3 Chloride (98 - 107 mmol/L) 98 Carbon Dioxide (22 - 30 mmol/L) 29 Anion Gap (5 - 16) 6 BUN (7 - 17 mg/dL) 15 Creatinine (0.5 - 1.0 mg/dL) 0.7 Estimated GFR (>60 ml/min) > 60 BUN/Creatinine Ratio (7 - 25 %) 21.4 Total Bilirubin (0.2 - 1.3 mg/dL) 0.8 Cancelled Direct Bilirubin (< 0.4 mg/dL) 0.8 H Cancelled AST (14 - 36 U/L) 2553 H Cancelled ALT (9 - 52 U/L) 2148 H Cancelled Alkaline Phosphatase (<127 U/L) 114 Cancelled Creatine Kinase (30 - 135 U/L) 91 Total Protein (6.3 - 8.2 g/dL) 6.1 L Cancelled Albumin (3.5 - 5.0 g/dL) 3.0 L Cancelled TSH (0.270 - 4.200 uIU/mL) 0.662 Free T4 (0.85 - 1.93 ng/dL) 3.63 H Hematology CBC w Diff NO MAN DIFF REQ WBC (4.8 - 10.8 /CUMM) 8.3 RBC (4.20 - 5.40 /CUMM) 3.35 L Hgb (12.0 - 16.0 G/DL) 9.5 L Hct (37 - 47 %) 28.6 L MCV (81.0 - 99.0 FL) 85.3 MCH (27.0 - 31.0 PG) 28.4 RDW (11.5 - 14.5 %) 19.4 H Plt Count (130 - 400 /CUMM) 361 MPV (7.4 - 10.4 FL) 7.8 Gran % (42.2 - 75.2 %) 73.1 Lymphocytes % (20.5 - 51.1 %) 20.7 Monocytes % (1.7 - 9.3 %) 5.7 Eosinophils % (0 - 5 %) 0.3 Basophils % (0.0 - 2.0 %) 0.2 Absolute Granulocytes (1.4 - 6.5 /CUMM) 6.1 Absolute Lymphocytes (1.2 - 3.4 /CUMM) 1.7 Absolute Monocytes (0.10 - 0.60 /CUMM) 0.5 Absolute Eosinophils (0.0 - 0.7 /CUMM) 0 Absolute Basophils (0.0 - 0.2 /CUMM) 0 PUBS MCHC (33.0 - 37.0 G/DL) 33.3 Immunology LORIE Titer ND Anti-Nuclear Antibody (NEG,1:40) NEG 1:40 IFA ASSAY 05/27 05/27 1620 1300 Chemistry Sodium (137 - 145 mmol/L) 133 L Potassium (3.5 - 5.1 mmol/L) 4.1 Chloride (98 - 107 mmol/L) 95 L Carbon Dioxide (22 - 30 mmol/L) 27 Anion Gap (5 - 16) 11 BUN (7 - 17 mg/dL) 16 Creatinine (0.5 - 1.0 mg/dL) 0.7 Estimated GFR (>60 ml/min) > 60 BUN/Creatinine Ratio (7 - 25 %) 22.9 Glucose (65 - 99 mg/dL) 86 Calcium (8.4 - 10.2 mg/dL) 8.8 Total Bilirubin (0.2 - 1.3 mg/dL) 1.1 Direct Bilirubin (< 0.4 mg/dL) 0.9 H AST (14 - 36 U/L) 2312 H ALT (9 - 52 U/L) 1633 H Alkaline Phosphatase (<127 U/L) 123 Troponin I (< 0.11 ng/ml) 0.04 [id number] Pept (<125 pg/mL) 7110 H Total Protein (6.3 - 8.2 g/dL) 7.1 Albumin (3.5 - 5.0 g/dL) 3.6 Globulin (1.9 - 4.2 gm/dL) 3.5 Albumin/Globulin Ratio (1.1 - 2.2 %) 1.0 L Coagulation PT (9.4 - 12.5 SEC) 25.6 H INR (0.90 - 1.19) 2.46 H APTT (25 - 37 SEC) 37 Hematology CBC w Diff NO MAN DIFF REQ WBC (4.8 - 10.8 /CUMM) 10.8 RBC (4.20 - 5.40 /CUMM) 3.67 L Hgb (12.0 - 16.0 G/DL) 10.4 L Hct (37 - 47 %) 31.5 L MCV (81.0 - 99.0 FL) 85.8 MCH (27.0 - 31.0 PG) 28.2 RDW (11.5 - 14.5 %) 19.4 H Plt Count (130 - 400 /CUMM) 400 MPV (7.4 - 10.4 FL) 7.6 Gran % (42.2 - 75.2 %) 77.3 H Lymphocytes % (20.5 - 51.1 %) 17.7 L Monocytes % (1.7 - 9.3 %) 4.1 Eosinophils % (0 - 5 %) 0.5 Basophils % (0.0 - 2.0 %) 0.4 Absolute Granulocytes (1.4 - 6.5 /CUMM) 8.4 H Absolute Lymphocytes (1.2 - 3.4 /CUMM) 1.9 Absolute Monocytes (0.10 - 0.60 /CUMM) 0.4 Absolute Eosinophils (0.0 - 0.7 /CUMM) 0.1 Absolute Basophils (0.0 - 0.2 /CUMM) 0 PUBS MCHC (33.0 - 37.0 G/DL) 32.8 L Serology Hepatitis A IgM Ab (NONREACTIVE) NONREACTIVE Hep Bs Antigen (NONREACTIVE) NONREACTIVE Hep B Core IgM Ab Conf (NONREACTIVE) NONREACTIVE Hepatitis C Antibody (NONREACTIVE) NONREACTIVE Virus Culture Pending Toxicology Acetaminophen (10.0 - 30.0 ug/mL) < 10.0 L Imaging/Other Studies: 05/27/2016: EKG- NSR @ 62, LBBB, multifocal PVC. 05/27/2016: XRY-CHEST XRAY, PA AND LATERAL- There are are chronic changes in the right lung consistent with the history of prior right upper lobectomy. There is a streaky parenchymal opacity in the left midlung zone which is new or more prominent compared to prior study and could represent an area of subsegmental atelectasis. No dense consolidation is seen and there is no other change. 05/27/2016: US ABDOMEN (RUQ) LIMITED- 1. Status post CCKY with no evidence of intra or extrahepatic biliary ductal dilatation. CBD 4 mm. Normal liver. 2. Incomplete view of the pancreatic head and tail. Visualized portions of the pancreas appear atrophic, but otherwise unremarkable. 3. Exophytic upper pole right renal cyst. 4. Previously demonstrated extrarenal pelvis and dilated right ureter not seen on this exam versus resolved in the interim. 05/27/2016: HEPATIC ULTRASOUND WITH DOPPLER- Normal hepatic Doppler ultrasound with patent hepatic arteries, patent and normally directed portal veins and hepatic veins. Intrahepatic IVC patent. 05/29/2016: ECHOCARDIOGRAM- 1. Normal EF of 70%. 2. Mild left ventricular hypertrophy. 3. Moderate mitral regurgitation. 4. Mild tricuspid regurgitation. 5. Mild aortic regurgitation. 6. Mild pulmonary hypertension.
--- NOTE | 2016-05-30 08:22 | PN- Housestaff ---
See Addendum Subjective Follow-up For: influenza transaminitis paraplegic hyponatremia Tele-Events Since Last Visit: nsr, hr 59-61l PVCs, first degree heart block [place] interval 0.24 Subjective: seen and examined patient, reports some nausea and vomitting this morning. When I check it looked more frothy. Think she is dry heaving. States she is not nauseated all the time. Reports no appetite. Denies fevers, chills, shortness of breath or abdominal pain. Review of Systems Constitutional: Denies: chills, diaphoresis, fever, malaise, weakness, unexplained weight loss. Cardiovascular: Denies: chest pain, edema, orthopena, palpitations, peripheral edema, syncope. Respiratory: Denies: cough, hemoptysis, orthopnea, short of breath, sputum production, stridor, wheezing. Objective Last 24 Hrs of Vital Signs/I&O Vital Signs Date Time Temp Pulse Resp B/P Pulse O2 O2 Flow FiO2 Ox Delivery Rate 05/30 0000 Nasal 2.0L Cannula 05/29 2349 98.0 62 12 170/60 96 Nasal 2.0L Cannula 05/29 2108 62 160/64 05/29 1940 97 Nasal 2.0L Cannula 05/29 1600 94 Nasal 2.0L Cannula 05/29 1540 98.4 56 20 152/70 96 Nasal 2.0L Cannula 05/29 0911 150/70 05/29 0911 150/74 05/29 0842 96 Nasal 2.0L Cannula 05/29 0835 98.1 62 20 158/70 96 Nasal 2.0L Cannula Intake & Output 05/30 1600 05/30 0800 05/30 0000 Intake Total 100 360 Output Total Balance 100 360 Intake, IV 10 Intake, Oral 100 350 Number 1 1 Bowel Movements Physical Exam General Appearance: Alert, Oriented X3, Cooperative, No Acute Distress HEENT: dry mucous membranes Cardiovascular: Regular Rate, Normal S1, Normal S2 Lungs: Normal Air Movement Abdomen: Normal Bowel Sounds, Soft, mild tenderness to palpation in LUQ Neurological: paraplegic Extremities: No Edema Current Medications: Current Medications Sig/Jonel Start time Last Medication Dose Route Stop Time Status Admin Albuterol Sulfate 3 ML BID 05/28 2200 AC 05/29 INH 1940 Benzonatate 100 MG TIDPRN PRN 05/29 0345 AC 05/30 PO 0212 Diltiazem HCl 120 MG DAILY 05/27 1813 AC 05/30 PO 0833 Enoxaparin Sodium 40 MG DAILY@1500 05/29 1530 DC 05/29 SC 1846 Heparin Sodium 5,000 UNIT Q8 05/30 1400 AC (Porcine) SC Insulin Aspart 0 TIDAC 05/28 0800 AC 05/29 SC 1702 Ipratropium [place] 2.5 ML BID 05/28 2200 AC 05/29 INH 1940 Levothyroxine Sodium 0.1 MG DAILY AC 05/28 0700 AC 05/30 PO 0821 Lisinopril 40 MG DAILY 05/27 1815 AC 05/30 PO 0833 Magnesium Oxide 400 MG DAILY 05/28 1000 AC 05/30 PO 0833 Melatonin 5 MG .STK-MED ONE 05/30 0006 DC PO 05/30 0007 Melatonin 5 MG AT BEDTIME NEED.. 05/29 2330 AC 05/30 PO 0013 Metoprolol Tartrate 25 MG BID 05/27 2200 AC 05/30 PO 0833 Oseltamivir Phosphate 30 MG BID 05/29 1000 AC 05/30 PO 06/01 1001 0834 Trimethobenzamide HCl 200 MG TIDPRN PRN 05/27 2330 AC 05/30 IM 0133 Last 24 Hrs of Lab/Twan Results Last 24 Hrs of Labs/Mics: Laboratory Tests 05/30/16 0635: Sodium Pending, Potassium Pending, Chloride Pending, Carbon Dioxide Pending, Anion Gap Pending, BUN Pending, Creatinine Pending, BUN/Creatinine Ratio Pending , Serum Osmolality 282 L, Total Bilirubin Pending, Direct Bilirubin Pending, AST Pending, ALT Pending, Alkaline Phosphatase Pending, Total Protein Pending, Albumin Pending Assessment/Plan Assessment: 80 year old paraplegic woman with past medical history of COPD on 2 L of home oxygen, hypertension, [place] of colon s/p status post sigmoid resection 2008 , diastolic heart disease, CAD, [place] s/p angioplasty,paroxysmal atrial fibrillation on Eliquis, 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 afebrile, labs pertinant for transaminitis, hypernatremia, flu swab positive for influenza A, CXR shows no evidence of pneumonia. Abd US shows that she status post cholecystectomy with no biliary ductal dilatation and no masses. Patient continues to be nauseated intermittently and to have decreased by mouth intake. Complains of right hand tremors which is chronic in nature. No alteration in mentation, jaundice, active bleeding, no episosdes of diarrhea report. Remains in Sinus rthymn. Problem list: Influenza transaminits hypovolemic hypernatremia COPD exacerbation PAF CAD HTN h/o of colon cancer h/o of lung cancer HFpEF Hypothyroidism Diabetes Diarrhea Plan: TRC/nebs Renally and geriatric dosed tamiflu, 30 mg BID 3/7 day Continue holding amiodarone, Cardio consulted. Appreciate recommendations Continue toprol and cardizem. Hep A Ab, Hep Bs Ag, Hep C Ab, & Hep B core Ab- all negative, Aldolase pending, Last Echo in 2014 shows EF of 55% GI on board appreciate recommendations Will hold all hepatoxic med such as lipitor,tramadol, zofran holding zofran for [id number]. would give tigan or get repeat ekg if pt nauseous Per cardiology ELiqius is on hold, continue lisinopril, lopressor, levothryoxine. monitor fingersticks, on insulin sliding scale serum osm 282, urine osmolality 225: SIADH vs hypothryoidism Diet: CC3 DVT prophylaxis:sc lovenox DNR/DNI pain pathway: will hold off due to her transaminitis, she is allergic to morphine and codeine, continues to be pain free. Problem List: 1. Influenza A 2. Transaminitis 3. Hypothyroid 4. Carcinoma of upper lobe, bronchus or lung Pain Ratin Pain Location: na Pain Goal: Pain 4 or less Pain Plan: none Tomorrow's Labs & Rationales: [email or web address] function panel
[2016-05-30 08:32] VITALS: BP 172/80
--- NOTE | 2016-05-30 10:04 | PN- Pulmonary ---
Subjective HPI/Critical Care Issues: Seen and examined patient, reports some nausea and vomitting this morning. Still has shortness of breath Continues to complain of cough and wheezing Review of Systems: Eyes no blurred or double vision Ears no deafness or ringing Nose and throat no recurrent sinusitis Lungs per history of present illness Heart per history of present illness Abdomen no nausea vomiting Musculoskeletal occasional muscle and joint pains Psych no anxiety or depression Neuro without recurrent headache or seizures Endocrine no heat or cold intolerance Objective Current Medications: Current Medications Sig/Jonel Start time Last Medication Dose Route Stop Time Status Admin Albuterol Sulfate 3 ML BID 05/28 2200 AC 05/29 INH 1940 Benzonatate 100 MG TIDPRN PRN 05/29 0345 AC 05/30 PO 0212 Diltiazem HCl 120 MG DAILY 05/27 1813 AC 05/30 PO 0833 Enoxaparin Sodium 40 MG DAILY@1500 05/29 1530 DC 05/29 SC 1846 Heparin Sodium 5,000 UNIT Q8 05/30 1400 AC (Porcine) SC Insulin Aspart 0 TIDAC 05/28 0800 AC 05/29 SC 1702 Ipratropium [place] 2.5 ML BID 05/28 2200 AC 05/29 INH 1940 Levothyroxine Sodium 0.1 MG DAILY AC 05/28 0700 AC 05/30 PO 0821 Lisinopril 40 MG DAILY 05/27 1815 AC 05/30 PO 0833 Magnesium Oxide 400 MG DAILY 05/28 1000 AC 05/30 PO 0833 Melatonin 5 MG .STK-MED ONE 05/30 0006 DC PO 05/30 0007 Melatonin 5 MG AT BEDTIME NEED.. 05/29 2330 AC 05/30 PO 0013 Metoprolol Tartrate 25 MG BID 05/27 2200 AC 05/30 PO 0833 Oseltamivir Phosphate 30 MG BID 05/29 1000 AC 05/30 PO 06/01 1001 0834 Trimethobenzamide HCl 200 MG .STK-MED ONE 05/30 0129 DC IM 05/30 0130 Trimethobenzamide HCl 200 MG TIDPRN PRN 05/27 2330 AC 05/30 IM 0133 Laboratory Tests 05/30 05/29 05/28 0635 0635 1341 Chemistry Sodium (137 - 145 mmol/L) 132 L 130 L Potassium (3.5 - 5.1 mmol/L) 4.0 4.2 Chloride (98 - 107 mmol/L) 99 99 Carbon Dioxide (22 - 30 mmol/L) 28 28 Anion Gap (5 - 16) 5 3 L BUN (7 - 17 mg/dL) 9 12 Creatinine (0.5 - 1.0 mg/dL) 0.7 0.6 Estimated GFR (>60 ml/min) > 60 > 60 BUN/Creatinine Ratio (7 - 25 %) 12.9 20.0 Serum Osmolality (285 - 295 MOSM/KG) 282 L Magnesium (1.6 - 2.3 mg/dL) 1.6 Total Bilirubin (0.2 - 1.3 mg/dL) 0.9 0.8 Direct Bilirubin (< 0.4 mg/dL) 0.7 H 0.7 H AST (14 - 36 U/L) 646 H 1524 H ALT (9 - 52 U/L) 1294 H 1923 H Alkaline Phosphatase (<127 U/L) 120 111 Total Protein (6.3 - 8.2 g/dL) 6.1 L 6.3 Albumin (3.5 - 5.0 g/dL) 3.0 L 3.1 L Coagulation PT (9.4 - 12.5 SEC) 15.8 H INR (0.90 - 1.19) 1.51 H Hematology CBC w Diff NO MAN DIFF REQ WBC (4.8 - 10.8 /CUMM) 8.0 RBC (4.20 - 5.40 /CUMM) 3.37 L Hgb (12.0 - 16.0 G/DL) 9.6 L Hct (37 - 47 %) 28.9 L MCV (81.0 - 99.0 FL) 85.6 MCH (27.0 - 31.0 PG) 28.5 RDW (11.5 - 14.5 %) 19.5 H Plt Count (130 - 400 /CUMM) 340 MPV (7.4 - 10.4 FL) 8.1 Gran % (42.2 - 75.2 %) 71.2 Lymphocytes % (20.5 - 51.1 %) 22.9 Monocytes % (1.7 - 9.3 %) 4.9 Eosinophils % (0 - 5 %) 0.7 Basophils % (0.0 - 2.0 %) 0.3 Absolute Granulocytes (1.4 - 6.5 /CUMM) 5.7 Absolute Lymphocytes (1.2 - 3.4 /CUMM) 1.8 Absolute Monocytes (0.10 - 0.60 /CUMM) 0.4 Absolute Eosinophils (0.0 - 0.7 /CUMM) 0.1 Absolute Basophils (0.0 - 0.2 /CUMM) 0 PUBS MCHC (33.0 - 37.0 G/DL) 33.3 Serology Infectious [place] Titer (NEGATIVE) NEGATIVE Cancelled Microbiology Date/Time Procedure - Status Source Growth 05/28 1930 Legionella Antigen - COMP URINE ROUT 05/28 160 Legionella Antigen - CAN URINE ROUT Cancelled: Cancelled via OE: Per MD Decision 05/27 1620 Influenza Virus A & B Rapid Smear - COMP NASOPHARYN INFLUENZA TYPE A 05/27 1556 Blood Culture - RES BLOOD 05/27 1300 Blood Culture - RES BLOOD Vital Signs & I&O Last 24 Hrs of Vitals and I&O: Vital Signs Date Time Temp Pulse Resp B/P Pulse O2 O2 Flow FiO2 Ox Delivery Rate 05/30 0833 62 172/80 05/30 0833 62 172/80 05/30 0832 98.1 62 18 172/80 98 Nasal 2.0L Cannula 05/30 0800 98 Nasal 2.0L Cannula 05/30 0000 Nasal 2.0L Cannula 05/29 2349 98.0 62 12 170/60 96 Nasal 2.0L Cannula 05/29 2108 62 160/64 05/29 1940 97 Nasal 2.0L Cannula 05/29 1600 94 Nasal 2.0L Cannula 05/29 1540 98.4 56 20 152/70 96 Nasal 2.0L Cannula Intake & Output 05/30 1600 05/30 0800 05/30 0000 Intake Total 100 360 Output Total Balance 100 360 Intake, IV 10 Intake, Oral 100 350 Number 1 1 Bowel Movements Impression/Plan Impression/Plan Impression/Plan: Physical Exam General Appearance Alert, Oriented X3, Cooperative, Mild Distress Skin No Rashes, No Breakdown, No Significant Lesion HEENT Atraumatic, PERRLA, dry mucous membranes Neck Supple, No JVD, +2 Carotid Pulse wo Bruit Lymphatic Cervical nl Cardiovascular Normal S1, Normal S2, distant heart sounds Lungs b/l rhonchi and scattered wheezes Abdomen Normal Bowel Sounds, Soft, No Tenderness Extremities No Edema This is a 79-year-old lady with ischemic heart disease, recurrent hospital admission, previous, 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 now presumed cured, hypertension, paroxysmal atrial fibrillation on amiodarone and anticoagulation, previous tachycardia-induced acute for edema, drug-eluting stent to the RCA in May 2014, paraplegia, nosebleeds, chronic anemia with recent negative GI workup, recurrent bronchitis with mild interstitial lung disease, moderate obstructive pulmonary disease as well now comes in with * Influenza with bronchitis * Significant abdominal pain especially in the right upper quadrant area in a lady with previous constipation and stool impaction, ultrasound negative pain seems chronic * Sig transaminitis neg ultrasound * Chronic anemia with previous recurrent epistaxis with chronic sinusitis stable * No significant evidence suggestive of acute COPD exacerbation * Atelectasis which is chronic * Paroxysmal atrial fibrillation was on eloquis now in sinus * Previous PCI with stent, on eloquis not on any antiplatelet therapy as she has had recurrent bleeding in the past GI workup pending * 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
[2016-05-30 13:10] VITALS: BP 148/62
--- NOTE | 2016-05-30 16:26 | PN- Cardiology ---
Subjective Subjective: * Patient feels like she is suffocating today. * sinus rhythm * hepatic transaminases are coming down Objective Vital Signs and I&Os Vital Signs Date Time Temp Pulse Resp B/P Pulse O2 O2 Flow FiO2 Ox Delivery Rate 05/30 1310 55 148/62 05/30 1017 97 Nasal 2.0L Cannula 05/30 0833 62 172/80 05/30 0833 62 172/80 05/30 0832 98.1 62 18 172/80 98 Nasal 2.0L Cannula 05/30 0800 98 Nasal 2.0L Cannula 05/30 0000 Nasal 2.0L Cannula 05/29 2349 98.0 62 12 170/60 96 Nasal 2.0L Cannula 05/29 2108 62 160/64 05/29 1940 97 Nasal 2.0L Cannula Intake & Output 05/30 1600 05/30 0800 05/30 0000 05/29 1600 05/29 0800 05/29 0000 Intake Total 640 100 360 400 150 400 Output Total 600 400 Balance 40 100 360 400 150 0 Intake, IV 10 Intake, Oral 640 100 350 400 150 400 Number 1 1 0 Bowel Movements Output, Urine 600 400 Patient 130 lb Weight Physical Exam: General: WD/overweight female in NAD; alert and oriented x 3 Neck: no JVD, no carotid bruit Heart: RRR w/o murmur Lungs: clear bilaterally Ext: no edema Assessment/Plan Assessment/Plan * Discontinue Atorvastatin and Amiodarone. * Since this patient is in a sinus rhythm we will also discontinue Eliquis. Begin an aspirin at 81mg daily. Continue to follow her hepatic transaminases. Continue telemetry? Yes
[2016-05-30 16:44] VITALS: BP 158/68
[2016-05-30 22:00] VITALS: BP 126/74
--- NOTE | 2016-05-31 07:33 | Patient Discharge Instructions ---
Discharge Instructions General Discharge Information You were seen/treated for: Flu Elevated liver enzymes Special Instructions: please follow up with your primary care physician within one week of discharge please follow up with your green inspector in one week. please stop taking your Amiodarone,Lipitor, Eliquis, Tramadol. Acute Coronary Syndrome Inclusion Criteria At DC or during hospital stay patient has or had the following: ACS DIAGNOSIS No Discharge Core Measures Meds if any: Prescribed or Continued at Discharge Meds if any: NOT Prescribed or Continued at Discharge Congestive Heart Failure Inclusion Criteria At DC or during hospital stay patient has or had the following: CHF DIAGNOSIS No Discharge Core Measures Meds if any: Prescribed or Continued at Discharge Meds if any: NOT Prescribed or Continued at Discharge Cerebrovascular accident Inclusion Criteria At DC or during hospital stay patient has or had the following: CVA/TIA Diagnosis No Discharge Core Measures Meds if any: Prescribed or Continued at Discharge Meds if any: NOT Prescribed or Continued at Discharge Venous thromboembolism Inclusion Criteria VTE Diagnosis No VTE Type NONE VTE Confirmed by (Test) NONE Discharge Core Measures - Per Current guidelines, there needs to be overlap - treatment for the first 5 days of Warfarin therapy. - If discharged on Warfarin prior to 5 days of - overlap therapy, the patient will need to be - assessed for post discharge needs including - *Post discharge parental anticoagulation - *Warfarin and/or parental anticoagulation education - *Follow up date to check INR post discharge At least 5 days overlap therapy as Inpatient No Meds if any: Prescribed or Continued at Discharge Note: Overlap Therapy is Warfarin and Anticoagulant Meds if any: NOT Prescribed or Continued at Discharge
--- NOTE | 2016-05-31 07:55 | PN- Wound Care ---
Subjective Subjective: Patient feels well without complaints Review of Systems: Patient feels well without complaints. Right foot wound slough is been removed with local wound moisture Objective Vital Signs and I&Os Vital Signs Result Date Time O2 Delivery Nasal Cannula 05/31 O2 Flow Rate 2.0L 05/31 B/P 128/74 05/30 2207 Pulse 58 05/30 2207 Pulse Ox 97 05/30 2199 Temp 97.4 05/300 Resp 18 05/30 2199 Intake & Output 05/31 1600 05/30 0800 Intake Total 250 640 100 Output Total 600 Balance 250 40 100 Intake, IV 0 Intake, Oral 250 640 100 Number 0 1 Bowel Movements Output, Urine 600 Exam of the right foot wound shows it now has predominantly red fill it measures approximately 1 x 0.5 cm is no periwound erythema Impression/Plan Impression/Plan Impression/Plan: 80-year-old woman with multiple medical problems admitted with the flu sustained a thermal injury to her right lateral foot. The wound is improved with local moisture. Continue daily cleansing and Xeroform and offloading
[2016-05-31 08:00] VITALS: BP 140/70
[2016-05-31 08:10] LABS: ABSOLUTE BASOPHIL COUNT 0 /CUMM (0.0-0.2); ABSOLUTE EOSINOPHIL COUNT 0.1 /CUMM (0.0-0.7); ABSOLUTE GRANULOCYTE CT 4.4 /CUMM (1.4-6.5); ABSOLUTE LYMPH COUNT 2.8 /CUMM (1.2-3.4); ABSOLUTE MONOCYTE COUNT 0.7 /CUMM (0.10-0.60); BASOPHIL % 0.1 % (0.0-2.0); EOSINOPHIL % 1.8 % (0-5); GRANULOCYTE % 54.9 % (42.2-75.2); HEMATOCRIT 29.8 % (37-47); MEAN CORPUSCULAR HGB 28.1 PG (27.0-31.0); MEAN CORPUSCULAR HGB CONC 32.6 G/DL (33.0-37.0); MEAN CORPUSCULAR VOLUME 86.2 FL (81.0-99.0); MEAN PLATELET VOLUME 8.1 FL (7.4-10.4); PLATELET COUNT 337 /CUMM (130-400); RBC DISTRIBUTION WIDTH 19.1 % (11.5-14.5); RED BLOOD CELL CT 3.46 /CUMM (4.20-5.40)
[2016-05-31 08:24] LABS: PT 10.9 SEC (9.4-12.5); PTT 29 SEC (25-37)
--- NOTE | 2016-05-31 08:34 | PN- Gastroenterology ---
Assessment/Plan Assessment/Recommendations: 80-year-old female, poor historian, post RUL lobectomy for squamous cell CA of the lung w/o adjuvant therapy, HTN/HLD/DM/hypoT4/ASHD post GA, paroxysmal atrial fibrillation on outpatient Eliquis & Amiodarone, 08/08/2008: post sigmoid resection for large sigmoid [id number], without any invasive component, lymph node negative, which was too large to remove via 07/27/2008: colonoscopy. (There is no FHx of colon Ca, but her mother may have had gastric Ca). 02/10/2010: Colonoscopy to the cecum- post sigmoid resection with clean anastomosis at 20 cm, tiny hyperplastic polyps, moderate pandiverticulosis coli left side greater than right, with only fair prep after a gallon of TriLyte. In view of the above and the history of an advanced adenoma, I advised a follow-up colonoscopy was advised 2 years later, namely for 02/2012; however, the patient was not compliant with this. 02/04/2014: Covering EGD by Dr. Gerald Maldonado- mild gastritis, H. pylori-negative, CHULA brushings of esophagus positive (? Diflucan rxd). 02/05/2014: Attempted colonoscopy to 10 cm- terminated because of stool. 02/06/2014: Colonoscopy to TI- clean surgical anastomosis at 18 cm, post sigmoid resection, pandiverticulosis coli, normal TI, without any angiodysplasias or recurrent polyps or lesions. Patient had intermittent anemia and OB positive stool then. Her anticoagulation therapy was resumed at that point. Apparently, she saw Dr. Walter Maldonado for outpatient GI f/u after that [facility] & a decision was made to defer a PillCam unless her anemia recurred. 01/17/2012: nl IgA 382, tTG Ab- negative Her other numerous issues include COPD on home O2-2L nc Qhs, spinal cord injury reportedly wheelchair-bound with (waist down) B/L lower extremity paraplegia, diastolic CHF, cardiac stent placement (?type) vs. RCA PTCA in 05/2014, lactose intolerance, APPY, CCKY, cataract surgery, tubal ligation & hx epistaxis. The patient has had numerous admissions for intermittent OB positive stool and multifactorial anemia. *Outpatient PillCam has never been done. She was last admitted to [facility] 05/05/2015 - 05/07/2015, with exacerbation of COPD, hypertension, & UTI. The patient presented to the [facility] 05/27/2016 at 12:15 p.m., complaining of cough productive of yellowish sputum and symptoms of URI, congestion & wheezing. Upon arrival, BP 153/75, P 65, R 22, T 98.6, O2 sat RA 93%. She had some mild nausea and vomiting, with bilious contents. There was no overt GI bleeding, hematemesis, or melena. She denied any GERD, odynophagia, dysphagia, or early satiety. She had decreased po intake for 2 days [employer]. She denied any fevers or chills, but was more short of breath than usual. There was no chest pain. She denied any abdominal pain (her story changed from time to time). She reportedly had diarrhea over week ago, which resolved, without any constipation, obstipation, or tenesmus. *There was no documented hypotension. Her transaminases (AST/ALT), were subsequently found to be significantly elevated, prompting the GI consult. *Please note, in addition to Amiodarone, she was on outpatient Atorvastatin. *The AST/ALT (162/167), were minimally elevated in the [facility] , in the setting of elevated BNP 21494. She denied any jaundice, dark urine, light stool, or pruritus. She denied any NSAID or Tylenol use. A flu swab was positive for acute influenza. There was no evidence of pneumonia on chest x-ray, just COPD and old RLL resection. She was started on Tamiflu, per the medical team. She remotely had mild amounts of alcohol, none recently. She is an ex [id number] cigarette smoker, stopping 1998. She denied any known history of previous viral hepatitis. She has been transfused in the past. There is no history of needle sticks, tattoos, or IVDA. She denied any recent travel, herbal medications, or raw foods. There were no definite myalgias or acute arthralgias. There was no acute rash. She denied any symptoms of UTI. The patient was given Prednisone, Albuterol, Atrovent, Ceftriaxone, & Azithromycin in the ER. *Imaging studies of the RUQ on admission, per ER- negative post cholecystectomy. *I also requested Doppler studies of the HV/PV, which were negative. 05/27/2016: *Rapid viral influenza A/B- nasopharyngeal swab- *positive influenza type A. 05/27/2016: BC x 2- negative so far. 05/27/2016: Admission labs- WBC 10.8 (77% gran/8 gran Ab), H/H 10.4/31.5, normal MCV 85.8, elevated RDW 19.4, PLT 400, PT 25.6, INR 2.46, PTT 37, glucose 86, BUN /Cr 16/0.7, GFR > 60, Na 133, K 4.1, HCO3 27, AG 11, albumin 3.6, glob 3.5, TBil 1.1, alk phos 123, *AST 2312, *ALT 1633, troponin 0.04, *[Tylenol] < 10, elevated BNP 7110. 05/27/2016: EKG- NSR @ 62, LBBB, multifocal PVC. 05/27/2016: XRY-CHEST XRAY, PA AND LATERAL- There are are chronic changes in the right lung consistent with the history of prior right upper lobectomy. There is a streaky parenchymal opacity in the left midlung zone which is new or more prominent compared to prior study and could represent an area of subsegmental atelectasis. No dense consolidation is seen and there is no other change. 05/27/2016: US ABDOMEN (RUQ) LIMITED- 1. Status post CCKY with no evidence of intra or extrahepatic biliary ductal dilatation. CBD 4 mm. Normal liver. 2. Incomplete view of the pancreatic head and tail. Visualized portions of the pancreas appear atrophic, but otherwise unremarkable. 3. Exophytic upper pole right renal cyst. 4. Previously demonstrated extrarenal pelvis and dilated right ureter not seen on this exam versus resolved in the interim. 05/27/2016: HEPATIC ULTRASOUND WITH DOPPLER- Normal hepatic Doppler ultrasound with patent hepatic arteries, patent and normally directed portal veins and hepatic veins. Intrahepatic IVC patent. The significantly elevated transaminases (AST/ALT 2312/1633) on admission , were noted, which seemed incidental in nature, as the patient had no GI symptoms, except for some mild nausea and vomiting. She had a benign abdominal exam. She was admitted primarily for a flare of COPD and influenza. There was no documented hypotension to suggest "shock liver" (i.e.- ischemic hepatitis). Although her BNP was somewhat elevated 7110, there was no overt CHF on the admission chest x-ray. Her level of transaminase elevation was higher than one would expect with passive congestion, anway. Her Tylenol level is < 10. There is no significant EtOH, and the height & pattern of the transaminases are atypical for this. Rule out viral hepatitis, especially with positive influenza A. Rule out medication-induced (i.e.- Amiodarone/Atorvastatin). * Please note, Cardizem & Toprol have been reported to cause hepatitis, but these are less likely to do so than Amiodarone and/or Atorvastatin. Consider a component of skeletal muscle inflammation. Doubt AIH. *RUQ sono/Doppler HV/PV- negative for any acute pathology, post CCKY. *No evidence of vascular occlusion or Budd-Chiari syndrome. 05/27/2016: *Hep A Ab, Hep Bs Ag, Hep C Ab, & Hep B core Ab- all negative 05/27/2016: *viral culture- pending 05/28/2016: WBC 8.3, H/H 9.5/28.6, nl MCV, PLT 361 05/28/2016: nl CK 91, albumin 3.0, globulin 3.1, TBil 0.8, DBil 0.8, alk phos 114, *AST 2553, *ALT 2148, GFR > 60 *As of 05/28/2016, the patient remained hemodynamically stable (actually HTN- not hypotensive, regarding her elevated AST/ALT), & afebrile. O2 sat 2L nc- 96%. She remained in NSR. Atorvastatin and Amiodarone were held on admission. The medical team has continued her Eliquis. She remained on Cardizem and Toprol, both of which have been reported to cause hepatitis (although not as likely as Amiodarone or Atorvastatin). Cardiology input is pending. Tamiflu was prescribed on admission. The patient remains a poor historian. Apparently, she had some mild nausea without vomiting. She is on a heart healthy, DM diet. There was no abdominal pain or diarrhea. She denied any chills or rashes. There was no jaundice. She remained with URI symptoms and some mild shortness of breath, without any chest pain. She received 1 dose of IV Ceftriaxone in the ER 2016. She never received any Azithromycin, as her respiratory symptoms were probably viral/COPD in nature. *The patient was seen by cardiology 05/28/2016. Dr. Hager agree with continuing to hold Atorvastatin & Amiodarone. Eliquis was stopped on 2016. Metoprolol and Cardizem were continued for now, per cardiology, unless the patient's transaminases continue to rise. 05/28/2016: *Urine Legionelaa Ag- negative 05/28/2016: *LORIE- negative 1:40 05/29/2016: *[place] spot- negative *As of 05/29/2016, the patient remains hemodynamically stable and afebrile, on Tamiflu. O2 sat 2L nc 96%. She remains in NSR. Her breathing seems slightly improved, although she is wheezing. She has no symptoms referable to her liver. She has vague right-sided lower rib pain, reproducible by touch. 05/29/2016: ECHOCARDIOGRAM- 1. Normal EF of 70%. 2. Mild left ventricular hypertrophy. 3. Moderate mitral regurgitation. 4. Mild tricuspid regurgitation. 5. Mild aortic regurgitation. 6. Mild pulmonary hypertension. *As of 05/30/2016, the patient has no symptoms referable to her liver. Her LFTs and INR are resolving. She has mild B/L anterior rib pain B/L, but no objective abdominal tenderness. She remains afebrile and in NSR. O2 sat 2L - 96%. Her respiratory status is improving. 05/31/2016: PT 10.9, *normalized INR 1.04, albumin 2.7, globulin 3.2, TBil 0.8, DBil 0.5, alk phos 106, (*improving) AST 282, ALT 796, WBC 8, *stable H/H 9.7/ 29.8, normal MCV, PLT 337. *As of 05/31/2016, the patient's INR has normalized and her transaminases continue to improve. Numerous consultants' notes appreciated. Atorvastatin and Amiodarone remain on hold, as per cardiology. Eliquis has been stopped in favor of baby aspirin. The patient remains in NSR. She is very stable clinically from a GI perspective. Her initial so-called "abdominal pain" seemed to have actually been musculoskeletal/rib pain. She remains a poor historian. She has no symptoms referable to the liver. She is hemodynamically stable and afebrile. She remains on O2- 2L nc with O2 sat 96%. She is in the midst of a one-week course of her Tamiflu. She still has a cough, but overall her respiratory status is improved compared to admission. [*Transaminitis probably viral vs. medication induced]. *SUGGEST: *Serial LFTs & INR daily as inpatient. *Check EBV/CMV & Aldolase. *Await 2016: viral cultures. Tamiflu per medical team x 1 week. *Continue to hold Amiodarone & Atorvastatin for now (cardiology agrees), until transaminases hopefully resolve. [place] has been switched by cardiology to baby aspirin, and she remains in NSR. *Carefully continue Cardizem & Toprol for now, as these are less likely to cause hepatitis than Amiodarone and/or Atorvastatin. * Consider B/L rib series. *Consider checking for Norovirus. *Consider checking for atypical PNA (i.e.- Mycoplasma; 05/28/2016: urine Legionella Ag- negative), which can cause elevated LFTs. Doubt tick-borne illness. Treatment of COPD and influenza as per medical team. Although the patient has a history of an advanced colon adenoma requiring surgical resection, in view of her advanced age and numerous comorbidities, probably no need for repeat surveillance colonoscopy , as it was last clean on 02/06/2014. DVT prophylaxis with mechanical ALPS ( Lovenox vs. sc heparin okay if absolutely needed). The case was again discussed with the medical house staff & Dr. Langley, & previously with the patient's son, Constantino Boston & Dr. Hager. *Further inpatient GI follow up as needed. I spent that perspective. If the patient's LFTs continue to resolve, he may carefully resume the patient's Amiodarone and/or Atorvastatin as an outpatient, close follow-up of LFTs, as the patient's transaminitis could have been multifactorial , as above. If LFTs remain problematic as an outpatient, I will be happy to see her in my office. Problem List: 1. Transaminitis 2. Influenza A 3. Anemia 4. History of colon cancer 5. Diverticulosis of colon Subjective Subjective: 05/31/2016: PT 10.9, *normalized INR 1.04, albumin 2.7, globulin 3.2, TBil 0.8, DBil 0.5, alk phos 106, (*improving) AST 282, ALT 796, WBC 8, *stable H/H 9.7/ 29.8, normal MCV, PLT 337. *As of 05/31/2016, the patient's INR has normalized and her transaminases continue to improve. Numerous consultants' notes appreciated. Atorvastatin and Amiodarone remain on hold, as per cardiology. Eliquis has been stopped in favor of baby aspirin. The patient remains in NSR. She is very stable clinically from a GI perspective. Her initial so-called "abdominal pain" seemed to have actually been musculoskeletal/rib pain. She remains a poor historian. She has no symptoms referable to the liver. She is hemodynamically stable and afebrile. She remains on O2- 2L nc with O2 sat 96%. She is in the midst of a one-week course of her Tamiflu. She still has a cough, but overall her respiratory status is improved compared to admission. Review of Systems: Full 14 point ROS otherwise noncontributory, and as above Review of Systems Constitutional: Denies: chills, diaphoresis, fever, malaise, weakness, unexplained weight loss. EENTM: Denies: blurred vision, double vision, visual changes, eye pain, eye drainage, eye tearing, icterus, ear discharge, ear pain, ear redness, hearing changes, nasal congestion, epistaxis, nasal pain, throat pain, throat swelling, mouth pain, tooth pain. Cardiovascular: Denies: chest pain, edema, orthopena, palpitations, peripheral edema, syncope. Respiratory: Reports: cough (yellow sputum), short of breath (slightly better), sputum production, wheezing. Denies: hemoptysis, orthopnea, stridor. GI: Reports: nausea (mild), vomiting (gone). Denies: abdominal pain, bloating, constipation, diarrhea, distention, bowel incontinence, melena, bloody stool, changes in stool, steatorrhea. Genitourinary: Denies: discharge, dysuria, frequency, hematuria, hesitation, nocturia, pain, urgency. Musculoskeletal: Reports: chronic back pain, lower right rib pain. Denies: gout, joint pain, joint swelling, muscle pain, muscle stiffness, neck pain. Skin: Denies: cysts, change in skin color, change in hair/nails, dryness, erythema, jaundice, lesions, lymphangitis, lumps, moles, rash. Neurological/Psychological: Reports: anxiety, emotional problems, tremors (intention), unable to move lower ext. Denies: ataxia, cognitive dysfunction, confusion, depressed, dementia, headache, numbness, paresthesia, pre-existing deficit, petit mal seizures, tingling, tonic -clonic seizures, unable to move upper ext, weakness. Hematologic/Endocrine: Reports: bruising. Denies: bleeding, polyuria, polydipsia. Immunologic/Allergic: Denies: splenectomy, HIV/AIDS, lymphadenopathy. All Other Systems: Reviewed and Negative Objective Vital Signs and I&Os Vital Signs Date Time Temp Pulse Resp B/P Pulse O2 O2 Flow FiO2 Ox Delivery Rate 05/31 0834 95 Nasal 2.0L Cannula 05/31 0824 94 Nasal 2.0L Cannula 05/31 0800 97.5 57 18 140/70 96 Nasal 2.0L Cannula 05/31 0000 Nasal 2.0L Cannula 05/30 2208 58 128/74 05/30 2200 97.4 55 18 126/74 97 Nasal 2.0L Cannula 05/30 1915 98 Nasal 2.0L Cannula 05/30 1644 97.0 53 18 158/68 97 Nasal 2.0L Cannula 05/30 1310 55 148/62 05/30 1017 97 Nasal 2.0L Cannula Intake & Output 05/31 1600 05/31 0400 05/30 1600 05/30 0400 05/29 1600 05/29 0400 Intake Total 250 250 740 360 550 400 Output Total 600 400 Balance 250 250 140 360 550 0 Intake, IV 0 0 10 Intake, Oral 250 250 740 350 550 400 Number 0 0 1 1 0 Bowel Movements Output, Urine 600 400 Patient 130 lb Weight Physical Exam: Well-developed, chronically ill-appearing, elderly female in NAD, less tachypneic. Sclera anicteric. Conjunctiva pink. Oropharynx clear. No oral thrush. No aphthous ulcers. No stridor. There is no adenopathy, thyromegaly, or JVD. No HJR. No peripheral stigmata of inflammatory bowel disease or chronic liver disease on exam. No spiders on the anterior chest wall. No CVA tenderness. Lungs: improved mild bilateral end expiratory wheezing. No definite egophony. No rales or rhomchi. Slight decreased breath sounds RUL. *Tender lower ribs anteriorly B/L. Heart exam: currently regular rate rhythm (NSR clinically), S1 and S2, with I/ systolic murmur. Breast and pelvic exams: API. Abdominal exam: normal bowel sounds, soft belly, nontender, without guarding or rebound. No mass. No organomegaly. No fluid shift. No pulsatile mass. No epigastric bruits. Multiple well-healed scars. Digital rectal exam: deferred by patient. Extremities: without cyanosis or clubbing. Trace pedal edema B/L. Scant ulcer right foot (dressed). No palpable cords. No palmar erythema. No Dupuytren's contractures. Distal pulses 2+ bilaterally. DTRs 2+ bilaterally. Unable to move legs B/L. Alert and oriented x 3, but poor historian. + Intention tremor. No asterixis. Current Medications: Current Medications Sig/Jonel Start time Last Medication Dose Route Stop Time Status Admin Albuterol Sulfate 3 ML BID 05/28 2199 AC 05/31 INH 0832 Aspirin 81 MG DAILY 05/31 1000 AC PO Benzonatate 100 MG .STK-MED ONE 05/30 194 DC PO 05/30 194 Benzonatate 100 MG TIDPRN PRN 05/29 0345 AC 05/30 PO 2208 Diltiazem HCl 120 MG DAILY 05/27 1813 AC 05/30 PO 0833 Enoxaparin Sodium 40 MG DAILY 05/30 1015 AC 05/30 SC 1201 Heparin Sodium 5,000 UNIT Q8 05/30 1400 CAN (Porcine) SC Insulin Aspart 0 TIDAC 05/28 0800 AC 05/29 SC 1702 Ipratropium [place] 2.5 ML BID 05/28 2200 AC 05/31 INH 0832 Levothyroxine Sodium 0.1 MG DAILY AC 05/28 0700 AC 05/31 PO 0653 Lisinopril 40 MG DAILY 05/27 1815 AC 05/30 PO 0833 Lorazepam 0.25 MG ONCE ONE 05/30 1630 DC PO 05/30 1631 Magnesium Oxide 400 MG DAILY 05/28 1000 AC 05/30 PO 0833 Melatonin 5 MG AT BEDTIME NEED.. 05/29 2330 AC 05/30 PO 0013 Metoprolol Tartrate 25 MG BID 05/27 2200 AC 05/30 PO 2208 Oseltamivir Phosphate 30 MG BID 05/29 1000 AC 05/30 PO 06/01 1001 2208 Patient Medication 1 ED ONE ONE 05/30 1400 DC Teaching ED 05/30 1401 Trimethobenzamide HCl 200 MG TIDPRN PRN 05/27 2330 AC 05/30 IM 0133 Results Pertinent Lab Results: Laboratory Tests 05/31 05/30 05/30 0625 1220 0635 Chemistry Sodium (137 - 145 mmol/L) 134 L 132 L Potassium (3.5 - 5.1 mmol/L) 3.8 4.0 Chloride (98 - 107 mmol/L) 97 L 99 Carbon Dioxide (22 - 30 mmol/L) 34 H 28 Anion Gap (5 - 16) 3 L 5 BUN (7 - 17 mg/dL) 8 9 Creatinine (0.5 - 1.0 mg/dL) 0.7 0.7 Estimated GFR (>60 ml/min) > 60 > 60 BUN/Creatinine Ratio (7 - 25 %) 11.4 12.9 Serum Osmolality (285 - 295 MOSM/KG) 282 L Total Bilirubin (0.2 - 1.3 mg/dL) 0.8 0.9 Direct Bilirubin (< 0.4 mg/dL) 0.5 H 0.7 H AST (14 - 36 U/L) 282 H 646 H ALT (9 - 52 U/L) 796 H 1294 H Alkaline Phosphatase (<127 U/L) 106 120 Total Protein (6.3 - 8.2 g/dL) 5.9 L 6.1 L Albumin (3.5 - 5.0 g/dL) 2.7 L 3.0 L Coagulation PT (9.4 - 12.5 SEC) 10.9 INR (0.90 - 1.19) 1.04 APTT (25 - 37 SEC) 29 Hematology CBC w Diff NO MAN DIFF REQ WBC (4.8 - 10.8 /CUMM) 8.0 RBC (4.20 - 5.40 /CUMM) 3.46 L Hgb (12.0 - 16.0 G/DL) 9.7 L Hct (37 - 47 %) 29.8 L MCV (81.0 - 99.0 FL) 86.2 MCH (27.0 - 31.0 PG) 28.1 RDW (11.5 - 14.5 %) 19.1 H Plt Count (130 - 400 /CUMM) 337 MPV (7.4 - 10.4 FL) 8.1 Gran % (42.2 - 75.2 %) 54.9 Lymphocytes % (20.5 - 51.1 %) 34.6 Monocytes % (1.7 - 9.3 %) 8.6 Eosinophils % (0 - 5 %) 1.8 Basophils % (0.0 - 2.0 %) 0.1 Absolute Granulocytes (1.4 - 6.5 /CUMM) 4.4 Absolute Lymphocytes (1.2 - 3.4 /CUMM) 2.8 Absolute Monocytes (0.10 - 0.60 /CUMM) 0.7 H Absolute Eosinophils (0.0 - 0.7 /CUMM) 0.1 Absolute Basophils (0.0 - 0.2 /CUMM) 0 PUBS MCHC (33.0 - 37.0 G/DL) 32.6 L Urines Urine Osmolality (300 - 1000 MOSM/KG) 225 L 05/29 05/28 0635 1341 Chemistry Sodium (137 - 145 mmol/L) 130 L Potassium (3.5 - 5.1 mmol/L) 4.2 Chloride (98 - 107 mmol/L) 99 Carbon Dioxide (22 - 30 mmol/L) 28 Anion Gap (5 - 16) 3 L BUN (7 - 17 mg/dL) 12 Creatinine (0.5 - 1.0 mg/dL) 0.6 Estimated GFR (>60 ml/min) > 60 BUN/Creatinine Ratio (7 - 25 %) 20.0 Magnesium (1.6 - 2.3 mg/dL) 1.6 Total Bilirubin (0.2 - 1.3 mg/dL) 0.8 Direct Bilirubin (< 0.4 mg/dL) 0.7 H AST (14 - 36 U/L) 1524 H ALT (9 - 52 U/L) 1923 H Alkaline Phosphatase (<127 U/L) 111 Total Protein (6.3 - 8.2 g/dL) 6.3 Albumin (3.5 - 5.0 g/dL) 3.1 L Coagulation PT (9.4 - 12.5 SEC) 15.8 H INR (0.90 - 1.19) 1.51 H Hematology CBC w Diff NO MAN DIFF REQ WBC (4.8 - 10.8 /CUMM) 8.0 RBC (4.20 - 5.40 /CUMM) 3.37 L Hgb (12.0 - 16.0 G/DL) 9.6 L Hct (37 - 47 %) 28.9 L MCV (81.0 - 99.0 FL) 85.6 MCH (27.0 - 31.0 PG) 28.5 RDW (11.5 - 14.5 %) 19.5 H Plt Count (130 - 400 /CUMM) 340 MPV (7.4 - 10.4 FL) 8.1 Gran % (42.2 - 75.2 %) 71.2 Lymphocytes % (20.5 - 51.1 %) 22.9 Monocytes % (1.7 - 9.3 %) 4.9 Eosinophils % (0 - 5 %) 0.7 Basophils % (0.0 - 2.0 %) 0.3 Absolute Granulocytes (1.4 - 6.5 /CUMM) 5.7 Absolute Lymphocytes (1.2 - 3.4 /CUMM) 1.8 Absolute Monocytes (0.10 - 0.60 /CUMM) 0.4 Absolute Eosinophils (0.0 - 0.7 /CUMM) 0.1 Absolute Basophils (0.0 - 0.2 /CUMM) 0 PUBS MCHC (33.0 - 37.0 G/DL) 33.3 Serology Infectious [place] Titer (NEGATIVE) NEGATIVE Cancelled Imaging/Other Studies: 05/27/2016: EKG- NSR @ 62, LBBB, multifocal PVC. 05/27/2016: XRY-CHEST XRAY, PA AND LATERAL- There are are chronic changes in the right lung consistent with the history of prior right upper lobectomy. There is a streaky parenchymal opacity in the left midlung zone which is new or more prominent compared to prior study and could represent an area of subsegmental atelectasis. No dense consolidation is seen and there is no other change. 05/27/2016: US ABDOMEN (RUQ) LIMITED- 1. Status post CCKY with no evidence of intra or extrahepatic biliary ductal dilatation. CBD 4 mm. Normal liver. 2. Incomplete view of the pancreatic head and tail. Visualized portions of the pancreas appear atrophic, but otherwise unremarkable. 3. Exophytic upper pole right renal cyst. 4. Previously demonstrated extrarenal pelvis and dilated right ureter not seen on this exam versus resolved in the interim. 05/27/2016: HEPATIC ULTRASOUND WITH DOPPLER- Normal hepatic Doppler ultrasound with patent hepatic arteries, patent and normally directed portal veins and hepatic veins. Intrahepatic IVC patent. 05/29/2016: ECHOCARDIOGRAM- 1. Normal EF of 70%. 2. Mild left ventricular hypertrophy. 3. Moderate mitral regurgitation. 4. Mild tricuspid regurgitation. 5. Mild aortic regurgitation. 6. Mild pulmonary hypertension.
--- NOTE | 2016-05-31 09:27 | PN- Pulmonary ---
Subjective HPI/Critical Care Issues: She is hemodynamically stable and afebrile. She remains on O2- 2L nc with O2 sat 96%. She is in the midst of a one-week course of her Tamiflu. She still has a cough, but overall her respiratory status is improved compared to admission. Objective Current Medications: Current Medications Sig/Jonel Start time Last Medication Dose Route Stop Time Status Admin Albuterol Sulfate 3 ML BID 05/28 2200 AC 05/31 INH 0832 Aspirin 81 MG DAILY 05/31 1000 AC PO Benzonatate 100 MG .STK-MED ONE 05/30 1942 DC PO 05/30 194 Benzonatate 100 MG TIDPRN PRN 05/29 0345 AC 05/30 PO 2208 Diltiazem HCl 120 MG DAILY 05/27 1813 AC 05/30 PO 0833 Enoxaparin Sodium 40 MG DAILY 05/30 1015 AC 05/30 SC 1201 Heparin Sodium 5,000 UNIT Q8 05/30 1400 CAN (Porcine) SC Insulin Aspart 0 TIDAC 05/28 0800 AC 05/29 SC 1702 Ipratropium [place] 2.5 ML BID 05/28 2200 AC 05/31 INH 0832 Levothyroxine Sodium 0.1 MG DAILY AC 05/28 0700 AC 05/31 PO 0653 Lisinopril 40 MG DAILY 05/27 1815 AC 05/30 PO 0833 Lorazepam 0.25 MG ONCE ONE 05/30 1630 DC PO 05/30 1631 Magnesium Oxide 400 MG DAILY 05/28 1000 AC 05/30 PO 0833 Melatonin 5 MG AT BEDTIME NEED.. 05/29 2330 AC 05/30 PO 0013 Metoprolol Tartrate 25 MG BID 05/27 2200 AC 05/30 PO 2208 Oseltamivir Phosphate 30 MG BID 05/29 1000 AC 05/30 PO 06/01 1001 2208 Patient Medication 1 ED ONE ONE 05/30 1400 DC Teaching ED 05/30 1401 Trimethobenzamide HCl 200 MG TIDPRN PRN 05/27 2330 AC 05/30 IM 0133 Vital Signs & I&O Last 24 Hrs of Vitals and I&O: Vital Signs Date Time Temp Pulse Resp B/P Pulse O2 O2 Flow FiO2 Ox Delivery Rate 05/31 0834 95 Nasal 2.0L Cannula 05/31 0824 94 Nasal 2.0L Cannula 05/31 08 97.5 57 18 140/70 96 Nasal 2.0L Cannula 05/31 0000 Nasal 2.0L Cannula 05/30 2208 58 128/74 05/30 2200 97.4 55 18 126/74 97 Nasal 2.0L Cannula 05/30 1915 98 Nasal 2.0L Cannula 05/30 1644 97.0 53 18 158/68 97 Nasal 2.0L Cannula 05/30 1310 55 148/62 05/30 1017 97 Nasal 2.0L Cannula Intake & Output 05/31 1600 05/31 0800 05/31 0000 Intake Total 250 250 Output Total Balance 250 250 Intake, IV 0 0 Intake, Oral 250 250 Number 0 0 Bowel Movements Impression/Plan Impression/Plan Impression/Plan: Physical Exam General Appearance Alert, Oriented X3, Cooperative, Mild Distress Skin No Rashes, No Breakdown, No Significant Lesion HEENT Atraumatic, PERRLA, dry mucous membranes Neck Supple, No JVD, +2 Carotid Pulse wo Bruit Lymphatic Cervical nl Cardiovascular Normal S1, Normal S2, distant heart sounds Lungs b/l rhonchi and scattered wheezes Abdomen Normal Bowel Sounds, Soft, No Tenderness Extremities No Edema This is a 79-year-old lady with ischemic heart disease, recurrent hospital admission, previous, 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 now presumed cured, hypertension, paroxysmal atrial fibrillation on amiodarone and anticoagulation, previous tachycardia-induced acute for edema, drug-eluting stent to the RCA in May 2014, paraplegia, nosebleeds, chronic anemia with recent negative GI workup, recurrent bronchitis with mild interstitial lung disease, moderate obstructive pulmonary disease as well now comes in with * Influenza with bronchitis * Resolved Significant abdominal pain especially in the right upper quadrant area in a lady with previous constipation and stool impaction, ultrasound negative pain seems chronic * Sig transaminitis neg ultrasound better * Chronic anemia with previous recurrent epistaxis with chronic sinusitis stable * No significant evidence suggestive of acute COPD exacerbation * Atelectasis which is chronic * Paroxysmal atrial fibrillation was on eloquis now in sinus * Previous PCI with stent, on eloquis not on any antiplatelet therapy as she has had recurrent bleeding in the past GI workup pending * 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 * Pulmonary hypertension * Chronic small airway disease, mild ILD on top of her COPD * Chronic paraplegia * Chronic stable ischemic heart disease with stent as noted * Previous lung ca with no sig recurrence REC Continue Tamiflu Continue the nebulizer Continue her current blood pressure medications If she contines to wheeze start po prednisone 20 mg for three days Stable DNR and DNI WIll follow
--- NOTE | 2016-05-31 09:43 | PN- Cardiology ---
Subjective Subjective: * Patient continues to have a congested cough and mild shortness of breath. * hepatic transaminases are coming down * sinus rhythm Objective Vital Signs and I&Os Vital Signs Date Time Temp Pulse Resp B/P Pulse O2 O2 Flow FiO2 Ox Delivery Rate 05/31 0834 95 Nasal 2.0L Cannula 05/31 0824 94 Nasal 2.0L Cannula 05/31 0800 97.5 57 18 140/70 96 Nasal 2.0L Cannula 05/31 0000 Nasal 2.0L Cannula 05/30 2208 58 128/74 05/30 2200 97.4 55 18 126/74 97 Nasal 2.0L Cannula 05/30 1915 98 Nasal 2.0L Cannula 05/30 1644 97.0 53 18 158/68 97 Nasal 2.0L Cannula 05/30 1310 55 148/62 05/30 1017 97 Nasal 2.0L Cannula Intake & Output 05/31 1600 05/31 0800 05/31 0000 05/30 1600 05/30 0800 05/30 0000 Intake Total 250 250 640 100 360 Output Total 600 Balance 250 250 40 100 360 Intake, IV 0 0 10 Intake, Oral 250 250 640 100 350 Number 0 0 1 1 Bowel Movements Output, Urine 600 Physical Exam: General: WD/overweight female in NAD; alert and oriented x 3 Neck: no JVD, no carotid bruit Heart: RRR w/o murmur Lungs: No crackles or wheezing with upper airway sounds Ext: no edema Assessment/Plan Assessment/Plan * Follow hepatic transaminases off Atorvastatin and Amiodarone. It should be noted that this patient was on both of these medications for a long time with normal LFT's as recently as this past March. There may be a viral cause to her liver dysfunction. * Since this patient is in a sinus rhythm we will also discontinue Eliquis. Begin an aspirin at 81mg daily. Continue telemetry? Yes
[2016-05-31 09:45] VITALS: BP 138/70
[2016-05-31] MEDS ORDERED: ASPIRIN81 M4 PO (09:45)
[2016-05-31] MEDS ORDERED: TAMIFLU30 M1 PO (09:47)
--- NOTE | 2016-05-31 10:02 | PN- Housestaff ---
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 afebrile, labs pertinant for transaminitis, hypernatremia, flu swab positive for influenza A, CXR shows no evidence of pneumonia. Abd US shows that she status post cholecystectomy with no biliary ductal dilatation and no masses. Patient continues to be nauseated intermittently and to have decreased by mouth intake. Complains of right hand tremors which is chronic in nature. No alteration in mentation, jaundice, active bleeding, no episosdes of diarrhea report. Remains in Sinus rthymn. Problem list: Influenza transaminits hypovolemic hypernatremia COPD exacerbation PAF CAD HTN h/o of colon cancer h/o of lung cancer HFpEF Hypothyroidism Diabetes Diarrhea Plan: TRC/nebs Renally and geriatric dosed tamiflu, 30 mg BID 3/7 day Continue holding amiodarone, Cardio consulted. Appreciate recommendations Continue toprol and cardizem. Hep A Ab, Hep Bs Ag, Hep C Ab, & Hep B core Ab- all negative, Aldolase pending, Last Echo in 2014 shows EF of 55% GI on board appreciate recommendations Will hold all hepatoxic med such as lipitor,tramadol, zofran holding zofran for [id number]. would give tigan or get repeat ekg if pt nauseous Per cardiology ELiqius is on hold, continue lisinopril, lopressor, levothryoxine. monitor fingersticks, on insulin sliding scale serum osm 282, urine osmolality 225: SIADH vs hypothryoidism Diet: CC3 DVT prophylaxis:sc lovenox DNR/DNI pain pathway: will hold off due to her transaminitis, she is allergic to morphine and codeine, continues to be pain free.
--- NOTE | 2016-05-31 10:02 | PN- Housestaff ---
DO COKER 05/31/16 1001: Subjective Follow-up For: influenza transaminitis paraplegic hyponatremia Subjective: Hilary and examined patient, continues to have some cough. Was eating her breakfast today. Denies fever, chills, chest pain, shortness of breath. Review of Systems Constitutional: Denies: chills, diaphoresis, fever, malaise, weakness, unexplained weight loss. Cardiovascular: Denies: chest pain, edema, orthopena, palpitations, peripheral edema, syncope. Respiratory: Denies: cough, hemoptysis, orthopnea, short of breath, sputum production, stridor, wheezing. Objective Last 24 Hrs of Vital Signs/I&O Vital Signs Date Time Temp Pulse Resp B/P Pulse O2 O2 Flow FiO2 Ox Delivery Rate 05/31 0945 138/70 05/31 0945 138/68 05/31 0834 95 Nasal 2.0L Cannula 05/31 0824 94 Nasal 2.0L Cannula 05/31 08 97.5 57 18 140/70 96 Nasal 2.0L Cannula 05/31 0000 Nasal 2.0L Cannula 05/30 2208 58 128/74 05/30 2200 97.4 55 18 126/74 97 Nasal 2.0L Cannula 05/30 1915 98 Nasal 2.0L Cannula 05/30 1644 97.0 53 18 158/68 97 Nasal 2.0L Cannula Intake & Output 05/31 1600 05/31 0800 05/31 0000 Intake Total 250 250 Output Total Balance 250 250 Intake, IV 0 0 Intake, Oral 250 250 Number 0 0 Bowel Movements Physical Exam General Appearance: Alert, Oriented X3, Cooperative, No Acute Distress Cardiovascular: Regular Rate, Normal S1, Normal S2 Lungs: Clear to Auscultation, Normal Air Movement Extremities: No Edema Current Medications: Current Medications Sig/Jonel Start time Last Medication Dose Route Stop Time Status Admin Albuterol Sulfate 3 ML BID 05/28 2199 DCD 05/31 INH 0832 Aspirin 81 MG DAILY 05/31 1000 DCD 05/31 PO 0945 Benzonatate 100 MG .STK-MED ONE 05/30 1941 DC PO 05/30 1942 Benzonatate 100 MG TIDPRN PRN 05/29 0345 DCD 05/31 PO 1146 Diltiazem HCl 120 MG DAILY 05/27 1812 DCD 05/31 PO 0945 Enoxaparin Sodium 40 MG DAILY 05/30 1015 DCD 05/31 SC 0946 Insulin Aspart 0 TIDAC 05/28 0800 DCD 05/31 SC 1213 Ipratropium [place] 2.5 ML BID 05/28 2200 DCD 05/31 INH 0832 Levothyroxine Sodium 0.1 MG DAILY AC 05/28 0700 DCD 05/31 PO 0653 Lisinopril 40 MG DAILY 05/27 1815 DCD 05/31 PO 0945 Lorazepam 0.25 MG ONCE ONE 05/30 1630 DC PO 05/30 1631 Magnesium Oxide 400 MG DAILY 05/28 1000 DCD 05/31 PO 0945 Melatonin 5 MG AT BEDTIME NEED.. 05/29 2330 DCD 05/30 PO 0013 Metoprolol Tartrate 25 MG BID 05/27 2200 DCD 05/31 PO 0945 Oseltamivir Phosphate 30 MG BID 05/29 1000 DCD 05/31 PO 06/01 1001 0946 Trimethobenzamide HCl 200 MG TIDPRN PRN 05/270 DCD 05/30 IM 0133 Last 24 Hrs of Lab/Twan Results Last 24 Hrs of Labs/Mics: Laboratory Tests 05/31/16 0625: Anion Gap 3 L, Estimated GFR > 60, BUN/Creatinine Ratio 11.4, Total Bilirubin 0.8, Direct Bilirubin 0.5 H, AST 282 H, ALT 796 H, Alkaline Phosphatase 106, Total Protein 5.9 L, Albumin 2.7 L, PT 10.9, INR 1.04, APTT 29, CBC w Diff NO MAN DIFF REQ, RBC 3.46 L, MCV 86.2, MCH 28.1, RDW 19.1 H, MPV 8.1, Gran % 54.9 , Lymphocytes % 34.6, Monocytes % 8.6, Eosinophils % 1.8, Basophils % 0.1, Absolute Granulocytes 4.4, Absolute Lymphocytes 2.8, Absolute Monocytes 0.7 H, Absolute Eosinophils 0.1, Absolute Basophils 0, PUBS MCHC 32.6 L Assessment/Plan Assessment: 80 year old paraplegic woman with past medical history of COPD on 2 L of home oxygen, hypertension, Adenoca of colon s/p status post sigmoid resection 2008 , diastolic heart disease, CAD, [place] s/p angioplasty,paroxysmal atrial fibrillation on Eliquis, 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 afebrile, labs pertinant for transaminitis, hypernatremia, flu swab positive for influenza A, CXR shows no evidence of pneumonia. Abd US shows that she status post cholecystectomy with no biliary ductal dilatation and no masses. Patient continues to be nauseated intermittently and to have decreased by mouth intake. Complains of right hand tremors which is chronic in nature. No alteration in mentation, jaundice, active bleeding, no episosdes of diarrhea report. Remains in Sinus rthymn. Clinically stable for discharge today Problem list: Influenza transaminits hypovolemic hypernatremia COPD exacerbation PAF CAD HTN h/o of colon cancer h/o of lung cancer HFpEF Hypothyroidism Diabetes Diarrhea Plan: TRC/nebs Renally and geriatric dosed tamiflu, 30 mg BID 4/7 day. Will be discharged on Tamiflu for 3 more days Continue holding amiodarone, Cardio consulted. Appreciate recommendations Continue toprol, aspirin and cardizem. Hep A Ab, Hep Bs Ag, Hep C Ab, & Hep B core Ab- all negative, Aldolase pending, Last Echo in 2014 shows EF of 55% GI on board appreciate recommendations Will hold all hepatoxic med such as lipitor,tramadol, zofran holding zofran for [id number]. would give tigan or get repeat ekg if pt nauseous Per cardiology ELiqius is on hold, continue lisinopril, lopressor, levothryoxine. monitor fingersticks, on insulin sliding scale serum osm 282, urine osmolality 225: SIADH vs hypothryoidism Diet: CC3 DVT prophylaxis:sc lovenox DNR/DNI pain pathway: will hold off due to her transaminitis, she is allergic to morphine and codeine, continues to be pain free. Stable for discharge home today Problem List: 1. Influenza A 2. History of colon cancer 3. Transaminitis Pain Ratin Pain Location: Not applicable Pain Goal: Pain 4 or less Pain Plan: Current regimen Tomorrow's Labs & Rationales: None required RANDAL [place] MD 05/31/16 1308: Attending MD Review Statement Attending Statement Attending MD Statement: examined this patient, discuss w/resident/PA/CLASSIFIER OPERATOR, agreed w/resident/PA/CLASSIFIER OPERATOR, reviewed EMR data (avail) Attending Assessment/Plan: 80F PMH COPD on 2 L of home oxygen, hypertension, Adenoca of colon s/p status post sigmoid resection 08/08/2008 , diastolic heart disease, CAD, [place] s/p angioplasty,paroxysmal atrial fibrillation on Eliquis, squamous cell carcinoma of lung status post right lobectomy admitted for influenza and transaminitis. Patient is rapidly improving and feels well. She is still nauseous at times but otherwise well. Vitals are stable. LFTs are rapidly improving. Plan - Stable for discharge - Continue Tamiflu - Monitor off of amiodarone, statin, Eliquis, as patient has remained in NSR - Continue ASA - Follow cardiology and GI recommendations - Continue home medications - Follow PT recommendations
--- NOTE | 2016-05-31 14:16 | Discharge Summary ---
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 Vitals on admission: afebrile, HR 65, RR 22, 153/75 labs pertinent for AST 2312 ,ALT 1633, ALP 123, proBNP 7110, sodium 133, potassium 4.1, hemoglobin 10.4, hematocrit 31.5 flu swab was positive for influenza A CXR showed no evidence of pneumonia. Abd US shows that she was status post cholecystectomy with no biliary ductal dilatation and no masses. She was admitted to the telemetry floor and the following issues were addressed: COPD exacerbation/Influenza: Started on renally and geriatric dose of 7 day course of tamiflu. Reciever [facility] and [facility]. Her Welding Machine Tender followed her while she was hospitalized. Transaminits: GI was consulted, no evidence of impending liver failure or encephalopathy was observed. Hep A Ab, Hep Bs Ag, Hep C Ab, & Hep B core Ab- all negative. Was thought secondary to viral versus drug induced. Her Amiodarone which was held upon admission. Her hepatoxic medications like Eliquis, lipitor, tramadol, zofran were also held. PAF She remained in sinus rthymn during her stay and no other events were note on telemetry. Per cardiology she was started on Aspirin. Her Eliqius was held upon discharge. Her home dose of Cardiazem was continued HTN Her home meds of lisinopril, Norvasc and Lopressor were continued Hypothyroidism Continued on levothyroxine Diabetes Her metformin was held and she was placed on insulin sliding scale Was given a diabetic diet Diarrhea Her diarrhea resolved on day 2 of admission and required no further treatment DVT prophylaxis with subcutaneous Lovenox Patient was DNR/DNI Complications: none Allergies: Coded Allergies: amlodipine (Severe, C/P 05/27/16) codeine (Severe, C/P 05/27/16) morphine (Severe, C/P 05/27/16) omeprazole (Severe, C/P 05/27/16) Significant Procedures: SERVICE DATE: 05/27/16-1244 EXAM TYPE: RAD - XRY-CHEST XRAY, PA AND LATERAL FINDINGS: There is mild cardiomegaly and a tortuous calcified aorta unchanged from prior. There is some surgical sutures in the right upper lobe along with some volume loss in the right hemithorax. This is unchanged from prior and may be related to prior right upper lobectomy. A small focal parenchymal opacity in the left midlung zone is new since prior study and could represent a focus of subsegmental atelectasis. No dense consolidation is appreciated. There is no pleural effusion or pneumothorax. There is spinal fusion hardware over the lower thoracic and upper lumbar spine. Bony detail is limited. IMPRESSION: There are are chronic changes in the right lung consistent with the history of prior right upper lobectomy. There is a streaky parenchymal opacity in the left midlung zone which is new or more prominent compared to prior study and could represent an area of subsegmental atelectasis. No dense consolidation is seen and there is no other change. SERVICE DATE: 05/27/16141 EXAM TYPE: US - US-LIMITED ABDOMEN FINDINGS: PANCREAS: The pancreatic body and portions of the head and tail are visualized and appear atrophic, but otherwise unremarkable. LIVER: Normal. The liver demonstrates normal size, contour and echogenicity. No focal lesion or intrahepatic biliary duct dilatation. GALLBLADDER: The patient is status post cholecystectomy. COMMON BILE DUCT: Normal in caliber measuring 0.4 cm in diameter. RIGHT KIDNEY: There is an exophytic approximately 3.0 x 3.7 x 2.9 cm partially exophytic cyst in the upper pole of the right kidney. No other focal parenchymal lesions. The kidney measures at least 9.4 cm in maximum dimension. No hydronephrosis. No renal calculi. The previously demonstrated extrarenal pelvis and dilated right ureter are not imaged. FREE FLUID: None. IMPRESSION: 1. Status post cholecystectomy with no evidence of intra or extrahepatic biliary ductal dilatation. 2. Incomplete view of the pancreatic head and tail. Visualized portions of the pancreas appear atrophic but otherwise unremarkable. 3. Exophytic upper pole right renal cyst. 4. Previously demonstrated extrarenal pelvis and dilated right ureter not seen on this exam versus resolved in the interim. SERVICE DATE: 05/27/16-1657 EXAM TYPE: US - US-ABD/PELV ORGAN DOPPLER COMPARISON: Right upper quadrant ultrasound dated 05/27/2016. CT scan of the abdomen and pelvis dated 03/29/2016. TECHNIQUE: Real-time imaging of the liver with Doppler assessment of the hepatic and portal veins. FINDINGS: With color Doppler imaging, the main portal vein is found to be patent with normal hepatopetal flow demonstrated. Peak velocities between 38.6 and 42.7 cm/s are obtained. Spectral waveform has a normal configuration. The right and left portal veins are patent with peak systolic velocities of 24.5 cm/s in the right portal vein and 17.5 cm/s in the left portal vein. Spectral waveform pattern is normal. The intrahepatic IVC and the right, middle and left hepatic veins are patent with normally directed hepatofugal flow and normal spectral waveforms. The main, right and left hepatic arteries are patent with peak systolic velocities between 50 and 70 cm/s and borderline elevated resistive indices of 0.9. This may be normal given the patient's age. IMPRESSION: Normal hepatic Doppler ultrasound with patent hepatic arteries, patent and normally directed portal veins and hepatic veins. Intrahepatic IVC patent. SERVICE DATE: 05/29/16- EXAM TYPE: CARD - ECHOCARDIOGRAM FINDINGS Left Ventricle Normal left ventricular size with mild left ventricular hypertrophy. Normal systolic function with no obvious regional wall motion abnormalities. Normal left ventricular diastolic filling pattern for age. The ejection fraction is visually estimated at 70%. Right Ventricle The right ventricle is normal in size and function. Right Atrium The right atrium is normal in size. Left Atrium The left atrium is normal in size. The interatrial septum is intact. Mitral Valve The mitral valve demonstrates mild to moderate posterior annular calcification with normal function. There is moderate mitral regurgitation. Aortic Valve Structurally normal aortic valve without significant sclerosis or stenosis. There is mild aortic regurgitation. Tricuspid Valve The tricuspid valve is normal in structure and function. There is mild tricuspid regurgitation. Pulmonary artery systolic pressure is mildly elevated to 39.6mmHg. Pulmonic Valve Structurally normal pulmonic valve. There is no pulmonic regurgitation. Pericardium Normal pericardium without effusion. No pleural effusion. Great Vessels Normal aortic root dimension. The aortic arch and great vessels are well seen and are normal. CONCLUSIONS 1. Normal EF of 70%. 2. Mild left ventricular hypertrophy. 3. Moderate mitral regurgitation. 4. Mild tricuspid regurgitation. 5. Mild aortic regurgitation. 6. Mild pulmonary hypertension. Disposition Summary Disposition Principal Diagnosis: Influenza Additional Diagnosis: transaminits hypovolemic hypernatremia COPD exacerbation PAF CAD HTN h/o of colon cancer h/o of lung cancer HFpEF Hypothyroidism Diabetes Diarrhea Discharge Disposition: home health services Discharge Instructions General Discharge Information Code Status: Do Not Resucitate/Intubat Patient's Diet: diabetic diet Patient's Activity: as tolerated Follow-Up Instructions/Appts: follow up with primary care physician within one week of discharge follow up with crop setting out machine operator in one week. Medications at Discharge Discharge Medications: Stop taking the following medications: Atorvastatin Calcium (Lipitor) 20 MG TABLET ORAL DAILY TRAMADOL HCL (Tramadol) 50 MG TAB ORAL THREE TIMES DAILY as needed for PAIN Qty = 15 Apixaban (Eliquis) 2.5 MG TAB ORAL TWICE DAILY Ciprofloxacin (Cipro) 500 MG TAB ORAL TWICE DAILY Days = 5 Prednisone (Prednisone) 20 MG TAB ORAL DAILY Days = 1 Amiodarone Hydrochloride (Amiodarone) 200 MG TAB ORAL DAILY Days = 30 Ciprofloxacin HCl (Cipro) 500 MG TABLET ORAL TWICE DAILY Qty = 10 Ondansetron (Zofran Odt) 4 MG TAB.RAPDIS SUBLINGUAL THREE TIMES DAILY as needed for NAUSEA Qty = 10 Ondansetron (Zofran Odt) 4 MG TAB.RAPDIS SUBLINGUAL THREE TIMES DAILY as needed for nausea Qty = 10 Continue taking these medications: Magnesium Oxide (Magnesium Oxide) 400 MG TABLET 1 Tablet ORAL DAILY Qty = 90 Comments: NOT GIVEN IN HOSPITAL METFORMIN HCL (Metformin Hydrochloride) 500 MG TABLET 1 Tablet ORAL DAILY Qty = 90 Comments: NOT GIVEN IN HOSPITAL Lorazepam (Ativan) 0.5 MG TAB 1 Tablet ORAL Every 6-8 Hours as Needed as needed for ANXIETY Comments: Last Taken: 05/07/15 Time: 215AM Albuterol Sulfate/Ipratropiu (Duoneb) 3 MG/3 ML NEB 1 Vial Inhale Solution as needed for DYSPNEA Comments: Last Taken: 05/06/15 Time: 2000PM Levothyroxine Sodium (Levothyroxine Sodium) 0.1 MG TAB 1 Tablet ORAL DAILY Qty = 30 Instructions: PLEASE TAKE THIS TABLET IN AM. Comments: Last Taken: 05/07/15 Time: 915AM Metoprolol Tartrate (Lopressor) 25 MG TAB 1 Tablet ORAL TWICE DAILY Days = 60 Comments: Last Taken: 05/07/15 Time: 915AM Lisinopril (Lisinopril) 40 MG TAB 1 Tablet ORAL DAILY Qty = 30 Comments: NOT GIVEN IN HOSPITAL Amlodipine (Norvasc 5MG Tab) 5 MG TAB 1.5 Tablet ORAL DAILY Days = 30 Comments: Last Taken: 05/07/15 Time: 915AM Nystatin (Mycostatin Powder) 15 GM PWD 1 Application On the skin THREE TIMES DAILY as needed for fungal rash Qty = 1 Comments: Last Taken: 05/07/15 Time: 915AM DILTIAZEM HCL (Cardizem Cd) 120 MG CER 1 Tablet ORAL DAILY Comments: Last Taken: 05/07/15 Time: 915AM Dicyclomine Hydrochloride (Bentyl) 10 MG CAPSULE 1 Capsule ORAL THREE TIMES DAILY as needed for ABDOMINAL SPASMS Qty = 10 Start taking the following new medications: Oseltamivir Phosphate (Tamiflu) 30 MG CAPSULE 30 Milligram ORAL TWICE DAILY Qty = 6 No Refills Aspirin (Aspirin*) 81 MG TAB.CHEW 1 Tablet ORAL DAILY Qty = 30 No Refills Comments: Last Taken:05/31/16 Time:1000 Copies To: DIVYA VENCES,MARCI Cazares Attending MD Review Statement Documenting Attending: RANDAL MONTANA MD
== END 2016-05-31 12:50 | disposition home health service (06) | DRG 194 ==
LOC: ENRESERVTM → ENRESERVDT → ERH 12:15 → ERHI 15:58 → 1NO 15:58 → ENPENDDIS 15:58 → EDBEDREQ 18:34 → 1NO 20:58
PROVIDERS: Internal Medicine; Nurse Practitioner Family; Radiology Diagnostic Radiology; ADMIT Internal Medicine
DX: J10.1 Influenza due to other identified influenza virus with other respiratory manifestations (principal); J96.10 Chronic respiratory failure, unspecified whether with hypoxia or hypercapnia; I50.32 Chronic diastolic (congestive) heart failure; G82.20 Paraplegia, unspecified; K71.6 Toxic liver disease with hepatitis, not elsewhere classified; E87.1 Hypo-osmolality and hyponatremia; Z99.81 Dependence on supplemental oxygen; R74.0 Nonspecific elevation of levels of transaminase and lactic acid dehydrogenase [LDH]; T46.2X5A Adverse effect of other antidysrhythmic drugs, initial encounter; Y92.009 Unspecified place in unspecified non-institutional (private) residence as the place of occurrence of the external cause; I10 Essential (primary) hypertension; Z85.038 Personal history of other malignant neoplasm of large intestine; Z85.118 Personal history of other malignant neoplasm of bronchus and lung; I48.91 Unspecified atrial fibrillation; Z79.01 Long term (current) use of anticoagulants; L97.519 Non-pressure chronic ulcer of other part of right foot with unspecified severity
CPT/HCPCS: 1NP; 36415; 82436; 87040; 87449; 87804; 87804-59; 93005; 93010; 93306; 96374; 96375; G0480; J0696; J1644; J1650; J3250; J3490

== ENCOUNTER 2017-04-09 14:03 | Inpatient (IN) | payer OTHER, MEDICARE ==
[~2017-04-09] VITALS: Ht 157.5 cm; Wt 64.4 kg
[~2017-04-09 14:03] MED LIST changes: +AMLODIPINE BESYL5 M1 PO; +ASPIRIN81 M4 PO; +ATIVAN0.5 M1 PO; -ATIVAN0.5 MG PO; +ATORVASTATIN CA40 M1 PO; +AUGMENTIN 500-1 EACH PO; +CARDIZEM CD120 M2 PO; +ELIQUIS5 M1 PO; +IPRAT-ALBUT 0.5-3 ML INH; +LEVOXYL100 MCG PO; +METFORMIN HCL500 M3 PO; -METFORMIN HYDR500 MG PO; +TAMIFLU30 M1 PO; +VITAMIN D2000 UNIT PO; +ZESTRIL40 M1 PO
--- NOTE | 2017-04-09 14:10 | ED CARDIAC/CP/PALPITATIONS ---
History of Present Illness General Chief Complaint: General Adult Stated Complaint: SIB ALEC FOR AFIB Source: patient, old records, PCP Exam Limitations: no limitations Vital Signs & Intake/Output Vital Signs & Intake/Output Vital Signs Date Time Temp Pulse Resp B/P B/P Pulse O2 O2 Flow FiO2 Mean Ox Delivery Rate 04/09 1603 110 19 86/54 97 Nasal 2.0L Cannula 04/09 1514 102 20 102/61 99 Nasal 2.0L Cannula 04/09 1512 99 Nasal 2.0L Cannula 04/09 1508 150 22 134/76 04/09 1431 97.2 150 22 134/76 99 Nasal 2.0L Cannula Allergies Coded Allergies: amlodipine (Severe, C/P 05/27/16) codeine (Severe, C/P 05/27/16) morphine (Severe, C/P 05/27/16) omeprazole (Severe, C/P 05/27/16) Reconcile Medications Amlodipine Besylate 5 MG TABLET 1.5 TAB PO DAILY HEART/BP (Reported) Apixaban (Eliquis) 5 MG TABLET 5 MG PO BID afib . Atorvastatin Calcium 10 MG TABLET 1 TAB PO DAILY CHOLESTEROL (Reported) Cholecalciferol (Vitamin D3) (Vitamin D) 2,000 UNIT CAPSULE 1 CAP PO DAILY SUPPLEMENT (Reported) Levothyroxine Sodium (Levoxyl) 100 MCG TABLET 1 TAB PO DAILY AC THYROID ( Reported) Lisinopril (Zestril) 40 MG TABLET 1 TAB PO DAILY BP (Reported) Lorazepam (Ativan) 0.5 MG TABLET 1 TAB PO Q6-8H PRN ANXIETY (Reported) Metformin HCl 500 MG TABLET 1 TAB PO DAILY DM (Reported) Triage Nurses Notes Reviewed? yes Past History Travel History Traveled to [place] past 21 day No Medical History Any Pertinent Medical History? see below for history Neurological: paraplegia status post spine fx/fall intention tremor EENT: epistaxis Cardiovascular: AFIB (PAF), CAD (s/p stent to RCA vs PTCA), CHF, hypertension, hyperlipidemia, myocardial infarction Respiratory: COPD, interstitial lung disease, LUNG CA RUL LOBECTOMY O2 DEPENDENT 2-3L Gastrointestinal: lactose intolerance, IACSTRC-LS-LRCA, SIGMOID COLECTOMY 02/13 colonoscopy fair prep - tics but no polyps 02/13- egd gastritis DIVERTICULOSIS COLI Hepatic: NONE Renal: urinary incontinence Musculoskeletal: chronic back pain (post fall), degen joint disease, BROKEN BACK 15 YEARS AGO UNABLE TO BEAR WEIGHT Psychiatric: anxiety Endocrine: diabetes, hypothyroidism Blood Disorders: NONE (chronic), anemia Cancer(s): lung cancer (s/p RUL lobectomy SC Ca), AdenoCa in situ- sigmoid resection HYDRAULIC TECHNICIAN/Reproductive: TUBAL LIGATION History of MRSA: No History of VRE: No History of CDIFF: No Influenza Vaccine: 12/21/15 Surgical History Surgical History: appendectomy, cholecystectomy, cataract removal, tubal ligation, RUL resection back surgery sigmoid colectomy Sigmoid colectomy for adenoCa in situ Psychosocial History Who do you live with Daughter Services at Home Nursing, Oxygen What is your primary language Thai Family History Family History, If Any: MOTHER (possibly gastric Ca). , Age 70. FHx: stomach cancer FATHER ("some type of Ca"- not colon Ca). , Age 63. FH: cancer BROTHER FH: prostate cancer Progress Differential Diagnosis: AMI, CHF/pulm edema, RAPID AFIB, ACS, PAG Plan of Care: Orders Procedure Date/time Status Heart Healthy Diet 04/10 B Active ED Holding Orders 04/09 1622 Active Admit to inpatient 04/09 1622 Active Vital Signs 04/09 1622 Active EKG 04/09 1557 Active Add-on Test (ER Only) 04/09 1555 Active THYROID STIMULATING HORMONE 04/09 1450 Active LACTIC ACID 04/09 1450 Active FREE T4 04/09 1450 Active TYPE & SCREEN (NOT X-MATCH) 04/09 1430 Complete Telemetry/Clinical Research Assistant 04/09 1410 Active URINALYSIS 04/09 1410 Active TROPONIN LEVEL 04/09 1410 Active PARTIAL THROMBOPLASTIN TIME 04/09 1410 Complete PROTHROMBIN TIME 04/09 1410 Complete MAGNESIUM 04/09 1410 Active COMPREHENSIVE METABOLIC PANEL 04/09 1410 Active CBC WITHOUT DIFFERENTIAL 04/09 1410 Complete EKG 04/09 1405 Active Current Medications Sig/Jonel Start time Last Medication Dose Stop Time Status Admin Sodium Chloride 500 ML BOLUS ONE 04/09 1630 UNVr (Normal Saline 0.9%) 04/09 1729 Sodium Chloride 250 ML BOLUS ONE 04/09 1600 AC 08 (Normal Saline 0.9%) 04/09 1659 1605 Diltiazem HCl 125 MG Q24H 04/09 1515 UNVr (Cardizem DRIP) Sodium Chloride 100 ML (Normal Saline 0.9%) Laboratory Tests 04/09/17 1450: Anion Gap 16, Estimated GFR 53 L, BUN/Creatinine Ratio 25.0, Glucose 159 H, Lactic Acid 4.1 H, Calcium 9.7, Magnesium 1.7, Total Bilirubin 0.7, AST 18, ALT 22, Alkaline Phosphatase 90, Troponin I 0.03, Total Protein 7.6, Albumin 3.9, Globulin 3.7, Albumin/Globulin Ratio 1.1, TSH Pending, Free T4 2.32 H, PT 20.8 H, INR 1.99 H, APTT 37, CBC w Diff NO MAN DIFF REQ, RBC 3.93 L, MCV 90.9, MCH 29.5, RDW 14.6 H, MPV 7.9, Gran % 73.9, Lymphocytes % 18.2 L, Monocytes % 5.8, Eosinophils % 1.4, Basophils % 0.7, Absolute Granulocytes 7.2 H, Absolute Lymphocytes 1.8, Absolute Monocytes 0.6, Absolute Eosinophils 0.1, Absolute Basophils 0.1, PUBS MCHC 32.5 L 04/09/17 1430: TSH Cancelled, Free T4 Cancelled Diagnostic Imaging: Viewed by Me: Radiology Read. Discussed w/RAD: Radiology Read. CXR Impression: PATIENT: VINCENT DRUMMOND PRESENT AGE: 81 PATIENT ACCOUNT NO: [id number] : 35 LOCATION: [facility] ORDERING PHYSICIAN: Ora Cortez MD SERVICE DATE: 04/09/17 EXAM TYPE: RAD - XRY-PORTABLE CHEST XRAY EXAMINATION: XR PORTABLE CHEST CLINICAL INFORMATION: Rule out CHF. COMPARISON: Chest radiograph 12/18/2016. TECHNIQUE: Portable frontal view of the chest was obtained. FINDINGS: There is mild prominence of the background interstitium. There is patchy airspace opacity at the right lung base. There is no dense consolidation or alveolar edema. There is no pleural effusion or dense consolidation. There is no pneumothorax. The heart is normal in size. The thoracic aorta is calcified. A fusion construct is partially imaged in the thoracolumbar spine. There are surgical clips in the right upper quadrant. IMPRESSION: 1. Patchy airspace opacity at the right lung base. 2. No pulmonary edema or dense consolidation. DICTATED BY: José Klein MD DATE/TIME DICTATED :04/09/171518 SOCIAL SECURITY ASSESSOR:ADAM DATE/TIME TRANSCRIBED:04/09/171518 CONFIDENTIAL, DO NOT COPY WITHOUT APPROPRIATE AUTHORIZATION. < Electronically signed in Other Vendor System> SIGNED BY: José Klein MD 04/09/17 1524 Initial ED EKG: AFIB (RVR) Departure Departure Time of Disposition: 1621 Disposition: STILL A PATIENT Condition: Stable Clinical Impression Primary Impression: Rapid atrial fibrillation Referrals: Alexandria VENCES,Westley Cazares (PCP/Family) Departure Forms: Customer Survey General Discharge Information Admission Note Spoke With: Hill Jeff MD Documentation of Exam: Documentation of any treatments & extenuating circumstances including Concerns Regarding Discharge (functional status, medication knowledge or non-compliance, living conditions, etc.) that warrant an admission rather than observation: [ TELE MONITOR, CARDIZEM DRIP, SERIAL EKG/TROPONIN, MONITOR I/O, MONITOR FOR FEVER , PRODUCTIVE COUGH] Critical Care Note Critical Care Note Critical Care Time: 30-74 min
[2017-04-09] MEDS ORDERED: ATORVASTATIN CA10 M1 PO (14:27)
--- NOTE | 2017-04-09 15:24 | RADIOLOGY REPORT ---
EXAMINATION: XR PORTABLE CHEST CLINICAL INFORMATION: Rule out CHF. COMPARISON: Chest radiograph 12/18/2016. TECHNIQUE: Portable frontal view of the chest was obtained. FINDINGS: There is mild prominence of the background interstitium. There is patchy airspace opacity at the right lung base. There is no dense consolidation or alveolar edema. There is no pleural effusion or dense consolidation. There is no pneumothorax. The heart is normal in size. The thoracic aorta is calcified. A fusion construct is partially imaged in the thoracolumbar spine. There are surgical clips in the right upper quadrant. IMPRESSION: 1. Patchy airspace opacity at the right lung base. 2. No pulmonary edema or dense consolidation.
[2017-04-09 15:31] LABS: ABSOLUTE BASOPHIL COUNT 0.1 /CUMM (0.0-0.2); ABSOLUTE EOSINOPHIL COUNT 0.1 /CUMM (0.0-0.7); ABSOLUTE GRANULOCYTE CT 7.2 /CUMM (1.4-6.5); ABSOLUTE LYMPH COUNT 1.8 /CUMM (1.2-3.4); ABSOLUTE MONOCYTE COUNT 0.6 /CUMM (0.10-0.60); BASOPHIL % 0.7 % (0.0-2.0); EOSINOPHIL % 1.4 % (0-5); GRANULOCYTE % 73.9 % (42.2-75.2); HEMATOCRIT 35.7 % (37-47); MEAN CORPUSCULAR HGB 29.5 PG (27.0-31.0); MEAN CORPUSCULAR HGB CONC 32.5 G/DL (33.0-37.0); MEAN CORPUSCULAR VOLUME 90.9 FL (81.0-99.0); MEAN PLATELET VOLUME 7.9 FL (7.4-10.4); PLATELET COUNT 547 /CUMM (130-400); RBC DISTRIBUTION WIDTH 14.6 % (11.5-14.5); RED BLOOD CELL CT 3.93 /CUMM (4.20-5.40); WHITE BLOOD CELL COUNT 9.7 /CUMM (4.8-10.8)
[2017-04-09 15:39] LABS: PT 20.8 SEC (9.4-12.5); PTT 37 SEC (25-37)
--- NOTE | 2017-04-09 16:50 | Cons- Cardiology ---
General Information and HPI Consulting Request Date of Consult: 04/09/17 Requested By: ER History of Present Illness: Mayr is an 81-year-old female with history of hypertension, paroxysmal atrial fibrillation and coronary artery disease status post myocardial infarction. She is also status post a right lobectomy for lung cancer. Finally, it should be recalled that this patient has long-standing lower extremity paralysis following trauma. Mary presented to my office today in mild respiratory distress and was found to be in atrial fibrillation with increased heart rate. It should be noted that this patient was once on Amiodarone to control her rhythm but this medication was stopped due to concerns that it was causing pulmonary fibrosis. She also has a subtle discomfort radiating toward her right shoulder. The patient has noted intermittent palpitations for at least a week. Overall, Mary has been doing well for an extended period of time. She does have episodes at night when she feels short of breath but uses her supplemental oxygen and she quickly improves. She also uses Lasix on an as needed basis but has only rarely needed to use it. For the most part Mary is free of any chest discomfort or palpitations. At about 4PM she has noted transient lightheadedness on a fairly consistent basis. This is unchanged despite lowering her Metoprolol dose. Her daughter checks her BP during these episodes and it tends to be a bit high rather than low. It should be recalled that this patient had a severely elevated blood pressure often above 200mmHg but it is now well controlled. She is chronically short of breath without orthopnea but at present he breathing is about at her baseline which except for some occasional exceptions is comfortable. At baseline she tends to be anemic. Mary has had multiple hospital admissions over a short period of time for shortness of breath. On last visit this was accompanied by anemia that was beyond her baseline, although she does carry a chronic history of low H/H. Her admissions are typically accompanied by findings of pulmonary edema and there is often a component of tachtycardia or rapid palpitations that accompany her decompensation. She denies orthopnea and, if fact, typically has platypnea. We have previously worked her up for a shunt of ASD and this workup was negative. It should be recalled that this patient underwent angioplasty to her mid right coronary artery a couple months ago which had a significant flow-limiting stenosis. The remainder of her coronary anatomy was within the normal range. Her hospital course was complicated by an RSV pneumonia. It should be recalled that this patient has had previous shortness of breath with platypnea; as such, a bubble study was performed to rule out any ASD or shunt. This did not appear to be present. Her EF was noted to be normal. She was taken off amiodarone, which she was previously on due to possible concerns over toxicity, although a CT scan did not show any evidence of this. At baseline, this patient can engage in light housework such as washing some dishes in her wheelchair. It should be noted that, in the past prior to her recent PCI, the patient did have some intermittent exertional chest tightness with mildly positive cardiac enzymes. Lastly, this patient has complained of food getting stuck in her esophagus. The patient's cardiac workup has included an echocardiogram. This study showed an overall normal EF of 60% with mild left ventricular enlargement. In terms of cardiac valves there was moderate mitral and tricuspid regurgitation and mild aortic and pulmonic insufficiency. She has moderate pulmonary hypertension. Allergies/Medications Allergies: Coded Allergies: amlodipine (Severe, C/P 05/27/16) codeine (Severe, C/P 05/27/16) morphine (Severe, C/P 05/27/16) omeprazole (Severe, C/P 05/27/16) Home Med List: Amlodipine Besylate 5 MG TABLET 1.5 TAB PO DAILY HEART/BP (Reported) Apixaban (Eliquis) 5 MG TABLET 5 MG PO BID afib . Atorvastatin Calcium 10 MG TABLET 1 TAB PO DAILY CHOLESTEROL (Reported) Cholecalciferol (Vitamin D3) (Vitamin D) 2,000 UNIT CAPSULE 1 CAP PO DAILY SUPPLEMENT (Reported) Levothyroxine Sodium (Levoxyl) 100 MCG TABLET 1 TAB PO DAILY AC THYROID ( Reported) Lisinopril (Zestril) 40 MG TABLET 1 TAB PO DAILY BP (Reported) Lorazepam (Ativan) 0.5 MG TABLET 1 TAB PO Q6-8H PRN ANXIETY (Reported) Metformin HCl 500 MG TABLET 1 TAB PO DAILY DM (Reported) Review of Systems Review of Systems: A review of systems is unremarkable. Past History Travel History Traveled to [place] past 21 day No Medical History Neurological: paraplegia status post spine fx/fall intention tremor EENT: epistaxis Cardiovascular: AFIB (PAF), CAD (s/p stent to RCA vs PTCA), CHF, hypertension, hyperlipidemia, myocardial infarction Respiratory: COPD, interstitial lung disease, LUNG CA RUL LOBECTOMY O2 DEPENDENT 2-3L Gastrointestinal: lactose intolerance, [id number], SIGMOID COLECTOMY 02/13 colonoscopy fair prep - tics but no polyps 02/13- egd gastritis DIVERTICULOSIS COLI Hepatic: NONE Renal: urinary incontinence Musculoskeletal: chronic back pain (post fall), degen joint disease, BROKEN BACK 15 YEARS AGO UNABLE TO BEAR WEIGHT Psychiatric: anxiety Endocrine: diabetes, hypothyroidism Blood Disorders: NONE (chronic), anemia Cancer(s): lung cancer (s/p RUL lobectomy SC Ca), AdenoCa in situ- sigmoid resection 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 , Age 70. FHx: stomach cancer FATHER ("some type of Ca"- not colon Ca). , Age 63. FH: cancer BROTHER FH: prostate cancer Psychosocial History Who Do You Live With? child, SHE LIVES WITH HER DAUGHTER Services at Home: Nursing, Oxygen Primary Language: Mohawk Living Will? yes Power of Lens Shaper Grinder/HCP? yes Name of POA/HCP: Pt's sonConstantino Functional Ability ADLs Needs Assist: dressing, eating, toileting, bathing. Ambulation: non-ambulatory (W/C) IADLs Needs Assist: shopping, housework, finances, food prep, telephone, transportation, medication admin. ECHO Results (as available) Report: CONCLUSIONS 1. Mildly decreased EF of 45% with moderate anterior and anteroseptal wall hypokinesis. 2. Mild left ventricular hypertrophy. 3. Mild mitral regurgitation. 4. Mild tricuspid regurgitation. Exam & Diagnostic Data Vital Signs and I&O Vital Signs Date Time Temp Pulse Resp B/P B/P Pulse O2 O2 Flow FiO2 Mean Ox Delivery Rate 04/09 1643 112 18 126/75 99 Nasal 2.0L Cannula 04/09 1603 110 19 86/54 97 Nasal 2.0L Cannula 04/09 1514 102 20 102/61 99 Nasal 2.0L Cannula 04/09 1512 99 Nasal 2.0L Cannula 04/09 1508 150 22 134/76 01/08 1431 97.2 150 22 134/76 99 Nasal 2.0L Cannula Intake & Output 04/09 1600 04/09 0000 04/08 1600 04/08 0000 Intake Total Output Total Balance Patient 140 lb Weight Weight Estimated Measurement Method Physical Exam: General: WD/overweight female in mild distress; alert and oriented x 3 HEETN: NC/AT, PERRL, EOMI Neck: no JVD, no carotid bruit Heart: tachycardic and irregular Lungs: decreased breath sounds bilaterally without crackles Abdomen: soft, obese, NT, +ve bowel sounds Extremities: no edema Neuro: bilateral lower extremity paralysis Assessment/Plan Assessment/Plan * This patient has atrial fibrillation with rapid heart rate that is causing shortness of breath, lightheadedness and possibly some anginal symptoms. She is on Eliquis for stroke prophylaxis but will need additional medication for rate control. Begin IV Lopressor 5mg with additional doses as needed for rate control. Continue her usual dose of cardizem. Check TFT's and obtain an echocardiogram. Also check cardiac enzymes. Consult Acknowledgment - Thank you for your consult request.
--- NOTE | 2017-04-09 17:55 | History & Physical ---
General Information and HPI Allergies/Medications Allergies: Coded Allergies: amlodipine (Severe, C/P 05/27/16) codeine (Severe, C/P 05/27/16) morphine (Severe, C/P 05/27/16) omeprazole (Severe, C/P 05/27/16) Home Med list Amlodipine Besylate 5 MG TABLET 1.5 TAB PO DAILY HEART/BP (Reported) Apixaban (Eliquis) 5 MG TABLET 5 MG PO BID afib . Atorvastatin Calcium 10 MG TABLET 1 TAB PO DAILY CHOLESTEROL (Reported) Cholecalciferol (Vitamin D3) (Vitamin D) 2,000 UNIT CAPSULE 1 CAP PO DAILY SUPPLEMENT (Reported) Levothyroxine Sodium (Levoxyl) 100 MCG TABLET 1 TAB PO DAILY AC THYROID ( Reported) Lisinopril (Zestril) 40 MG TABLET 1 TAB PO DAILY BP (Reported) Lorazepam (Ativan) 0.5 MG TABLET 1 TAB PO Q6-8H PRN ANXIETY (Reported) Metformin HCl 500 MG TABLET 1 TAB PO DAILY DM (Reported) Past History Travel History Traveled to [place] past 21 day No Medical History Neurological: paraplegia status post spine fx/fall intention tremor EENT: epistaxis Cardiovascular: AFIB (PAF), CAD (s/p stent to RCA vs PTCA), CHF, hypertension, hyperlipidemia, myocardial infarction Respiratory: COPD, interstitial lung disease, LUNG CA RUL LOBECTOMY O2 DEPENDENT 2-3L Gastrointestinal: lactose intolerance, [id number], SIGMOID COLECTOMY 02/13 colonoscopy fair prep - tics but no polyps 02/13- egd gastritis DIVERTICULOSIS COLI Hepatic: NONE Renal: urinary incontinence Musculoskeletal: chronic back pain (post fall), degen joint disease, BROKEN BACK 15 YEARS AGO UNABLE TO BEAR WEIGHT Psychiatric: anxiety Endocrine: diabetes, hypothyroidism Blood Disorders: NONE (chronic), anemia Cancer(s): lung cancer (s/p RUL lobectomy SC Ca), AdenoCa in situ- sigmoid resection 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 , Age 70. FHx: stomach cancer FATHER ("some type of Ca"- not colon Ca). , Age 63. FH: cancer BROTHER FH: prostate cancer Psychosocial History Who Do You Live With? child, SHE LIVES WITH HER DAUGHTER Services at Home: Nursing, Oxygen Primary Language: Ivorian Living Will? yes Power of Business Line Manager/HCP? yes Name of POA/HCP: Pt's sonConstantino Functional Ability ADLs Needs Assist: dressing, eating, toileting, bathing. Ambulation: non-ambulatory (W/C) IADLs Needs Assist: shopping, housework, finances, food prep, telephone, transportation, medication admin. Core Measures/Misc (12/17) Sepsis (View protocol) Sepsis Present: No
--- NOTE | 2017-04-09 19:16 | History & Physical ---
General Information and HPI MD Statement: I have seen and personally examined VINCENT DRUMMOND and documented this H&P. The patient is a 81 year old F who presented with a patient stated chief complaint of []. Allergies/Medications Allergies: Coded Allergies: amlodipine (Severe, C/P 05/27/16) codeine (Severe, C/P 05/27/16) morphine (Severe, C/P 05/27/16) omeprazole (Severe, C/P 05/27/16) Home Med list Amlodipine Besylate 5 MG TABLET 1.5 TAB PO DAILY HEART/BP (Reported) Apixaban (Eliquis) 5 MG TABLET 5 MG PO BID afib . Atorvastatin Calcium 10 MG TABLET 1 TAB PO DAILY CHOLESTEROL (Reported) Cholecalciferol (Vitamin D3) (Vitamin D) 2,000 UNIT CAPSULE 1 CAP PO DAILY SUPPLEMENT (Reported) Levothyroxine Sodium (Levoxyl) 100 MCG TABLET 1 TAB PO DAILY AC THYROID ( Reported) Lisinopril (Zestril) 40 MG TABLET 1 TAB PO DAILY BP (Reported) Lorazepam (Ativan) 0.5 MG TABLET 1 TAB PO Q6-8H PRN ANXIETY (Reported) Metformin HCl 500 MG TABLET 1 TAB PO DAILY DM (Reported) Past History Travel History Traveled to [place] past 21 day No Medical History Neurological: paraplegia status post spine fx/fall intention tremor EENT: epistaxis Cardiovascular: AFIB (PAF), CAD (s/p stent to RCA vs PTCA), CHF, hypertension, hyperlipidemia, myocardial infarction Respiratory: COPD, interstitial lung disease, LUNG CA RUL LOBECTOMY O2 DEPENDENT 2-3L Gastrointestinal: lactose intolerance, [id number], SIGMOID COLECTOMY 02/13 colonoscopy fair prep - tics but no polyps 02/13- egd gastritis DIVERTICULOSIS COLI Hepatic: NONE Renal: urinary incontinence Musculoskeletal: chronic back pain (post fall), degen joint disease, BROKEN BACK 15 YEARS AGO UNABLE TO BEAR WEIGHT Psychiatric: anxiety Endocrine: diabetes, hypothyroidism Blood Disorders: NONE (chronic), anemia Cancer(s): lung cancer (s/p RUL lobectomy SC Ca), AdenoCa in situ- sigmoid resection 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 , Age 70. FHx: stomach cancer FATHER ("some type of Ca"- not colon Ca). , Age 63. FH: cancer BROTHER FH: prostate cancer Psychosocial History Who Do You Live With? child, SHE LIVES WITH HER DAUGHTER Services at Home: Nursing, Oxygen Primary Language: French Living Will? yes Power of Automotive Starter Repairer/HCP? yes Name of POA/HCP: Pt's sonConstantino Functional Ability ADLs Needs Assist: dressing, eating, toileting, bathing. Ambulation: non-ambulatory (W/C) IADLs Needs Assist: shopping, housework, finances, food prep, telephone, transportation, medication admin. Core Measures/Misc (12/17) Sepsis (View protocol) Sepsis Present: No
--- NOTE | 2017-04-09 20:39 | History & Physical ---
General Information and HPI Allergies/Medications Allergies: Coded Allergies: amlodipine (Severe, C/P 05/27/16) codeine (Severe, C/P 05/27/16) morphine (Severe, C/P 05/27/16) omeprazole (Severe, C/P 05/27/16) Home Med list Amlodipine Besylate 5 MG TABLET 1.5 TAB PO DAILY HEART/BP (Reported) Apixaban (Eliquis) 5 MG TABLET 5 MG PO BID afib . Atorvastatin Calcium 10 MG TABLET 1 TAB PO DAILY CHOLESTEROL (Reported) Cholecalciferol (Vitamin D3) (Vitamin D) 2,000 UNIT CAPSULE 1 CAP PO DAILY SUPPLEMENT (Reported) Levothyroxine Sodium (Levoxyl) 100 MCG TABLET 1 TAB PO DAILY AC THYROID ( Reported) Lisinopril (Zestril) 40 MG TABLET 1 TAB PO DAILY BP (Reported) Lorazepam (Ativan) 0.5 MG TABLET 1 TAB PO Q6-8H PRN ANXIETY (Reported) Metformin HCl 500 MG TABLET 1 TAB PO DAILY DM (Reported) Past History Travel History Traveled to [place] past 21 day No Medical History Neurological: paraplegia status post spine fx/fall intention tremor EENT: epistaxis Cardiovascular: AFIB (PAF), CAD (s/p stent to RCA vs PTCA), CHF, hypertension, hyperlipidemia, myocardial infarction Respiratory: COPD, interstitial lung disease, LUNG CA RUL LOBECTOMY O2 DEPENDENT 2-3L Gastrointestinal: lactose intolerance, [id number], SIGMOID COLECTOMY 02/13 colonoscopy fair prep - tics but no polyps 02/13- egd gastritis DIVERTICULOSIS COLI Hepatic: NONE Renal: urinary incontinence Musculoskeletal: chronic back pain (post fall), degen joint disease, BROKEN BACK 15 YEARS AGO UNABLE TO BEAR WEIGHT Psychiatric: anxiety Endocrine: diabetes, hypothyroidism Blood Disorders: NONE (chronic), anemia Cancer(s): lung cancer (s/p RUL lobectomy [place] Ca), AdenoCa in situ- sigmoid resection 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 , Age 70. FHx: stomach cancer FATHER ("some type of Ca"- not colon Ca). , Age 63. FH: cancer BROTHER FH: prostate cancer Psychosocial History Who Do You Live With? child, SHE LIVES WITH HER DAUGHTER Services at Home: Nursing, Oxygen Primary Language: Malian Living Will? yes Power of Warehouse Picker/HCP? yes Name of POA/HCP: Pt's sonConstantino Functional Ability ADLs Needs Assist: dressing, eating, toileting, bathing. Ambulation: non-ambulatory (W/C) IADLs Needs Assist: shopping, housework, finances, food prep, telephone, transportation, medication admin. Core Measures/Misc (12/17) Sepsis (View protocol) Sepsis Present: No
--- NOTE | 2017-04-09 20:41 | History & Physical ---
Chiquita Mora 04/09/172039: General Information and HPI MD Statement: I have seen and personally examined VINCENT DRUMMOND and documented this H&P. 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 Langley's office today for rapid Heart rate. States that she has been having worsening shortness of breath and dizziness since the past two days. She is also having some right shoulder pain. Denies fever, chills, chest pain, cough, syncope. Allergies/Medications Allergies: Coded Allergies: amlodipine (Severe, C/P 05/27/16) codeine (Severe, C/P 05/27/16) morphine (Severe, C/P 05/27/16) omeprazole (Severe, C/P 05/27/16) Home Med list Amlodipine Besylate 5 MG TABLET 1.5 TAB PO DAILY HEART/BP (Reported) Apixaban (Eliquis) 5 MG TABLET 5 MG PO BID afib . Atorvastatin Calcium 10 MG TABLET 1 TAB PO DAILY CHOLESTEROL (Reported) Cholecalciferol (Vitamin D3) (Vitamin D) 2,000 UNIT CAPSULE 1 CAP PO DAILY SUPPLEMENT (Reported) Levothyroxine Sodium (Levoxyl) 100 MCG TABLET 1 TAB PO DAILY AC THYROID ( Reported) Lisinopril (Zestril) 40 MG TABLET 1 TAB PO DAILY BP (Reported) Lorazepam (Ativan) 0.5 MG TABLET 1 TAB PO Q6-8H PRN ANXIETY (Reported) Metformin HCl 500 MG TABLET 1 TAB PO DAILY DM (Reported) Compliance With Home Meds: GOOD Past History Travel History Traveled to [place] past 21 day No Medical History Neurological: paraplegia status post spine fx/fall intention tremor EENT: epistaxis Cardiovascular: AFIB (PAF), CAD (s/p stent to RCA vs PTCA), CHF, hypertension, hyperlipidemia, myocardial infarction Respiratory: COPD, interstitial lung disease, LUNG CA RUL LOBECTOMY O2 DEPENDENT 2-3L Gastrointestinal: lactose intolerance, [id number], SIGMOID COLECTOMY 02/13 colonoscopy fair prep - tics but no polyps 02/13- egd gastritis DIVERTICULOSIS COLI Hepatic: NONE Renal: urinary incontinence Musculoskeletal: chronic back pain (post fall), degen joint disease, BROKEN BACK 15 YEARS AGO UNABLE TO BEAR WEIGHT Psychiatric: anxiety Endocrine: diabetes, hypothyroidism Blood Disorders: NONE (chronic), anemia Cancer(s): lung cancer (s/p RUL lobectomy SC Ca), AdenoCa in situ- sigmoid resection 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 , Age 70. FHx: stomach cancer FATHER ("some type of Ca"- not colon Ca). , Age 63. FH: cancer BROTHER FH: prostate cancer Psychosocial History Who Do You Live With? child, SHE LIVES WITH HER DAUGHTER Services at Home: Nursing, Oxygen Primary Language: [place] Living Will? yes Power of Surfboard Maker/HCP? yes Name of POA/HCP: Pt's son, Constantino Drummond Functional Ability ADLs Needs Assist: dressing, eating, toileting, bathing. Ambulation: non-ambulatory (W/C) IADLs Needs Assist: shopping, housework, finances, food prep, telephone, transportation, medication admin. Review of Systems Review of Systems Constitutional: Denies: chills, diaphoresis, fever, malaise, weakness, unexplained weight loss. Cardiovascular: Reports: orthopena, palpitations. Denies: no symptoms, see HPI, chest pain, edema, peripheral edema, syncope. Exam & Diagnostic Data Last 24 Hrs of Vital Signs/I&O Vital Signs Date Time Temp Pulse Resp B/P B/P Pulse O2 O2 Flow FiO2 Mean Ox Delivery Rate 04/09 2054 115 18 141/68 96 Room Air 04/09 1934 98.3 118 18 146/455 99 Nasal 2.0L Cannula 04/09 1804 115 19 152/82 100 Nasal 2.0L Cannula 04/09 1643 112 18 126/75 99 Nasal 2.0L Cannula 04/09 1603 110 19 86/54 97 Nasal 2.0L Cannula 04/09 1514 102 20 102/61 99 Nasal 2.0L Cannula 04/09 1512 99 Nasal 2.0L Cannula 04/09 1508 150 22 134/76 04/09 1431 97.2 150 22 134/76 99 Nasal 2.0L Cannula Intake & Output 04/09 1600 04/09 0800 04/09 0000 Intake Total Output Total Balance Patient 140 lb Weight Weight Estimated Measurement Method Physical Exam General Appearance Alert, Oriented X3, Mild Distress Cardiovascular IRREGULARLY IRREGULAR, TACHYCARDIC Lungs Clear to Auscultation, Normal Air Movement Abdomen Normal Bowel Sounds, Soft, No Tenderness Neurological PARAPLEGIC Extremities No Edema Diagnostic Data EKG Results Atrial fibrillation, heart rate 149 CXR Results IMPRESSION: 1. Patchy airspace opacity at the right lung base. 2. No pulmonary edema or dense consolidation. 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 Vitals on admission: Febrile, heart rate 150s, blood pressure 134 x 76 Labs: Leukocytosis, hemoglobin 11.6, hematocrit 35.7, troponin negative 1, Lactic acid 4.1 ED Course: She was started on IV Cardizem drip in the ED Problem list: Atrial Fibrillation with rapid ventricular rate Hypothyroidism DM COPD Paraplegic Lactic acidosis Plan Admit to telemetry floor vitals per protocol, trend troponin /EKG, Lactic acid Per cardiology IV Lopressor when necessary prn for better control of heart rate Follow-up echocardiogram Medication of levothyroxine, Eliquis, statin Accu-Cheks, insulin sliding scale, hold metformin DVT prophylaxis with Eliquis DNR/DNI As Ranked By This Provider Problem List: 1. Atrial fibrillation 2. SOB (shortness of breath) Core Measures/Misc (12/17) Acute Coronary Syndrome ACS Diagnosis: No Congestive Heart Failure Congestive Heart Failure Diagnosis No Cerebrovascular Accident CVA/TIA Diagnosis: No VTE (View Protocol) VTE Risk Factors Age>40 No Mechanical VTE Prophylaxis d/t Physical Contraindication No VTE Pharm Prophylaxis d/t NA PharmProphylax ordered Sepsis (View protocol) Sepsis Present: No Hill Jeff MD 04/09/17 [id number]: Attending MD Review Statement Attending Statement Attending MD Statement: examined this patient, discuss w/resident/PA/SUPERVISOR MOLD CONSTRUCTION, agreed w/resident/PA/SUPERVISOR MOLD CONSTRUCTION, discussed with family, reviewed EMR data (avail), discussed with nursing, reviewed images, amended to note Attending Assessment/Plan: The patient is an 81 yo female with h/o spinal cord injury/trauma (paraplegia x 15 years), DM2, CAD (s/p angioplasty/stent, h/o NH), paroxysmal afib (on Eliquis ), s/p CVA, CHF, COPD (on chronic 2L oxygen), lung ca (s/p RUL resection), h/o colon ca (s/p sigmoid resection), h/o UTI's (pseudomonas) who presented to be seen as an OP in Dr. Langley's office today and was found to be in rapid afib/ CHF. She was sent to ED for admission. She denied any chest pain, however did endorse progressive dyspnea over last 2 days. No fever, chills, cough, dysuria. In the ED she received IV Cardizem and was subsequently place in Cardizem drip. Last angioplasty was to mid right coronary a couple of months ago. Physical Exam: VS: T 97.2, P 150, R 22, BP 134/76, PO 99% on 2L HEENT: eyes- PERRLA, EOMI oleg- moist mucosa Neck: no JVD or bruits Chest: diminished breath sounds, ? minimal bibasilar crackles Cor: irreg, tachy, nl S1, S2, no murm appreciated Abd: BS+, soft, NT Ext: tr edema, pulses not palpable Neuro: alert & oriented x 3, LE paralysis c/w known paraplegia Labs- as above Impression/Plan: #Atrial Fibrillation with RVR- as above, h/o PAF and found to be in rapid afib when presented for cardiology appointment with Dr. Langley today. Initial troponin I negative. Plan: Admit to telemetry floor. Cardiology consult- Dr. Langley (done). Cardizem drip- control HR Check TSH/Free T4, ECHO as per Cardiology. Continue Eliquis. #Hypothyroid- on Levothyroxine. Plan: As above, check TSH/Free T4 and hold Levothyroxine pending levels. #HTN- patient on Lisinopril/Amlodipine. Plan: May need to hold Lisinopril/Amlodipine while on Cardizem. Monitor BP. #DM2- on Metformin. Plan: Hold Metformin and check glucoscans/sliding scale insulin. #HL/CAD- on Atorvastatin. Plan: Continue Atorvastatin. #Anxiety- patient on Lorazepam prn. Plan: Please check CTPMP to see how much she is actually taking at home. Wish to avoid withdrawal and need to give if she is taking significant amounts at home.
--- NOTE | 2017-04-09 23:33 | Admission Certification ---
Admission Certification Certification Statement - As attending physician, I certify that at the time of - admission, based on clinical presentation, severity of - symptoms, need for further diagnostic testing and - therapeutic interventions, and risk of adverse outcomes - without in-hospital treatment, in my clinical assessment, - this patient requires an acute hospital stay for a minimum - of two nights or longer. I have also considered psychsocial - factors such as support system, advanced age, financial - issues, cognitive issues, and failed out-patient treatments, - past re-admission history, safety of patient, and lack of - compliance as applicable. Specific rationale supporting this admission is: The patient presents with rapid atrial fibrillation and requires admission to telemetry service for IV Cardizem drip, close cardiac monitoring and hemodynamic monitoring, serial troponin I levels, Cardiology consult- Dr. Langley.
[2017-04-10 02:00] VITALS: BP 126/70
[2017-04-10 07:11] VITALS: BP 100/50
--- NOTE | 2017-04-10 07:55 | PN- Housestaff ---
See Addendum Subjective Follow-up For: Atrial fibrillation with rapid ventricular response Subjective: Patient was seen and examined this morning, she had difficulty breathing and received breathing treatment. Patient was reevaluated in the afternoon, denied shortness of breath, chest pain, palpitation. Patient reported right shoulder pain and mentioned that it's a chronic pain and used to improve by an anxiety pill lorazepam 0.5 mg. Review of Systems Constitutional: Reports: see HPI. Objective Last 24 Hrs of Vital Signs/I&O Vital Signs Date Time Temp Pulse Resp B/P B/P Pulse O2 O2 Flow FiO2 Mean Ox Delivery Rate 04/10 1441 97.7 91 18 102/56 98 Nasal 2.0L Cannula 04/10 1030 Nasal 2.0L Cannula 04/10 1030 96 Nasal 2.0L Cannula 04/10 0810 94 Nasal 3.0L Cannula 04/10 0711 97.8 115 20 100/50 98 Nasal 3.0L Cannula 04/10 0216 99 Nasal 3.0L Cannula 04/10 0200 97.6 125 24 126/70 99 Nasal 3.0L Cannula 04/10 0133 98.8 111 18 123/78 100 Nasal 3.0L Cannula 04/10 0021 98.0 109 20 177/74 99 Nasal 3.0L Cannula 04/09 2344 110 19 122/69 99 Nasal 3.0L Cannula 04/09 2055 115 18 141/68 96 Room Air 04/09 1934 98.3 118 18 146/455 99 Nasal 2.0L Cannula 04/09 1804 115 19 152/82 100 Nasal 2.0L Cannula 04/09 1643 112 18 126/75 99 Nasal 2.0L Cannula Intake & Output 04/10 1600 04/10 0800 04/10 0000 Intake Total 250 Output Total Balance 250 Intake, IV 250 Number 1 Bowel Movements Patient 64.41 kg Weight Weight Bed scale Measurement Method Physical Exam General Appearance: Alert, Oriented X3, Cooperative, No Acute Distress Skin: No Rashes Skin Temp/Moisture Exam: Warm/Dry HEENT: Atraumatic, PERRLA, EOMI, Mucous Membr. moist/pink Neck: Supple Cardiovascular: Normal S1, Normal S2, No Murmurs, Irregular irregular Lungs: Normal Air Movement, Expiratory fine wheeze Abdomen: Normal Bowel Sounds, Soft, No Tenderness Neurological: Normal Speech, Normal Tone, Sensation Intact, Cranial Nerves 3-12 NL Extremities: No Clubbing, No Cyanosis, Normal Pulses, bilteral trace pedal edema Assessment/Plan Assessment: Ms. Boston is 81 -year-old female with past medical history significant for spinal cord injury/trauma (paraplegia x 15 years), DM2, CAD (s/p angioplasty/stent, h/o [place]), paroxysmal afib (on Eliquis), s/p CVA, CHF, COPD (on chronic 2L oxygen), lung ca (s/p RUL resection), h/o colon ca (s/p sigmoid resection), h/o UTI's ( pseudomonas) who presented to ED as a referral from Dr. Langley's office for rapid ventricular response with atrial fibrillation. Impression/Plan: #Atrial Fibrillation with RVR -Patient continued to be on atrial fibrillation, heart rate improved to 90s -Continue Cardizem drip, titrate and discontinue after second dose of oral Cardizem -Start Cardizem by mouth 60 3 times a day as above, h/o PAF and found to be in rapid afib -Troponin I negative -TSH/Free T4 within normal continue Synthroid -ECHO pending -Continue Eliquis #Hypothyroid- on Levothyroxine. #HTN- patient on Lisinopril/Amlodipine on hold since patient is on Cardizem drip , blood pressure is soft. #DM2- continue check glucoscans/sliding scale insulin. #HL/CAD- on Atorvastatin. #Anxiety- continue Lorazepam 0.5 mg every 6 hours prn. Diet CDD3 Code DNR/DNI DVT prophylaxis Eliquis Problem List: 1. Atrial fibrillation Pain Ratin Pain Location: Right sholuder chronic pain Pain Goal: Pain 4 or less Pain Plan: see medication Tomorrow's Labs & Rationales: CBC BMP
[2017-04-10 13:04] LABS: ABSOLUTE BASOPHIL COUNT 0 /CUMM (0.0-0.2); ABSOLUTE LYMPH COUNT 1.7 /CUMM (1.2-3.4); ABSOLUTE MONOCYTE COUNT 0.5 /CUMM (0.10-0.60)
[2017-04-10 13:10] LABS: ABSOLUTE EOSINOPHIL COUNT 0.3 /CUMM (0.0-0.7); ABSOLUTE GRANULOCYTE CT 4.4 /CUMM (1.4-6.5); BASOPHIL % 0.7 % (0.0-2.0); EOSINOPHIL % 3.6 % (0-5); MEAN CORPUSCULAR VOLUME 90.7 FL (81.0-99.0); MEAN PLATELET VOLUME 7.5 FL (7.4-10.4); PLATELET COUNT 451 /CUMM (130-400); RBC DISTRIBUTION WIDTH 14.9 % (11.5-14.5); RED BLOOD CELL CT 3.09 /CUMM (4.20-5.40); WHITE BLOOD CELL COUNT 6.9 /CUMM (4.8-10.8)
[2017-04-10 14:41] VITALS: BP 102/56
--- NOTE | 2017-04-10 20:08 | PN- Cardiology ---
Subjective Subjective: * Patient is still short of breath although improved compared with admission. * increased T4 consistent with hyperthyroidism * atrial fibrillation with mildly increased heart rate Objective Vital Signs and I&Os Vital Signs Date Time Temp Pulse Resp B/P B/P Pulse O2 O2 Flow FiO2 Mean Ox Delivery Rate 04/10 1637 75 112/60 04/10 1600 Nasal 3.0L Cannula 04/10 1441 97.7 91 18 102/56 98 Nasal 2.0L Cannula 04/10 1030 Nasal 2.0L Cannula 04/10 1030 96 Nasal 2.0L Cannula 04/10 0810 94 Nasal 3.0L Cannula 04/10 0711 97.8 115 20 100/50 98 Nasal 3.0L Cannula 04/10 0216 99 Nasal 3.0L Cannula 04/10 0200 97.6 125 24 126/70 99 Nasal 3.0L Cannula 04/10 0133 98.8 111 18 123/78 100 Nasal 3.0L Cannula 04/10 0021 98.0 109 20 177/74 99 Nasal 3.0L Cannula 04/09 2344 110 19 122/69 99 Nasal 3.0L Cannula 04/09 2055 115 18 141/68 96 Room Air Intake & Output 04/10 1600 04/10 0800 04/10 0000 04/09 1600 04/09 0800 04/09 0000 Intake Total 250 Output Total Balance 250 Intake, IV 250 Number 1 Bowel Movements Patient 142 lb 140 lb Weight Weight Bed scale Estimated Measurement Method Physical Exam: General: WD/overweight female in mild distress; alert and oriented x 3 HEETN: NC/AT, PERRL, EOMI Neck: no JVD, no carotid bruit Heart: tachycardic and irregular Lungs: decreased breath sounds bilaterally without crackles Abdomen: soft, obese, NT, +ve bowel sounds Extremities: no edema Neuro: bilateral lower extremity paralysis Assessment/Plan Assessment/Plan * Patient is improved. Still mildly tachycardic in the setting of atrial fibrillation. Decrease levothyroxine dose. Begin oral cardizem at 60mg PO TID and stop IV Cardizem after second oral dose. * Note patchy airspace opacity at right base consistent with pneumonia. Continue telemetry? Yes
[2017-04-10 22:04] VITALS: BP 120/50
[2017-04-11 06:54] VITALS: BP 110/60
--- NOTE | 2017-04-11 07:45 | PN- Housestaff ---
See Addendum Subjective Follow-up For: Atrial fibrillation with rapid ventricular response Subjective: Patient was seen and examined this morning, patient saturating 96% on 2 L oxygen her baseline, continued to be afebrile, with stable heart rate and blood pressure. Patient continued to have dry cough that started 3 days ago, continued to complain of shortness of breath however improved from admission. Denied any chest pain, palpitation. Patient tolerating oral intake well. Reported 4 out of 10 right shoulder pain Review of Systems Constitutional: Reports: see HPI. Objective Last 24 Hrs of Vital Signs/I&O Vital Signs Date Time Temp Pulse Resp B/P B/P Pulse O2 O2 Flow FiO2 Mean Ox Delivery Rate 04/11 1333 97 Nasal 2.0L Cannula 04/11 1305 114/62 04/11 0823 94 Nasal 3.0L Cannula 04/11 0654 98.4 62 20 110/60 96 Nasal 2.0L Cannula 04/11 0602 72 110/60 04/11 0000 Nasal 3.0L Cannula 04/10 2215 98.4 84 20 95 04/10 2204 120/50 04/10 2136 92 120/50 04/10 2014 97 Nasal 2.0L Cannula 04/10 1637 75 112/60 04/10 1600 Nasal 3.0L Cannula Intake & Output 04/11 1600 04/11 0800 04/11 0000 Intake Total 240 Output Total Balance 240 Intake, Oral 240 Number 2 Bowel Movements Physical Exam General Appearance: Alert, Oriented X3, Cooperative, No Acute Distress Skin: No Rashes Skin Temp/Moisture Exam: Warm/Dry HEENT: Atraumatic, PERRLA, EOMI, Mucous Membr. moist/pink Neck: Supple Cardiovascular: Normal S1, Normal S2, No Murmurs, irregular irregular Lungs: Bilateral basal crackles Abdomen: Normal Bowel Sounds, Soft, No Tenderness Neurological: paraplagia upper extermity 4/5 Extremities: No Clubbing, No Cyanosis, Normal Pulses, BL trace pedal edema Vascular: Normal Pulses Assessment/Plan Assessment: Ms. Boston is 81 -year-old female with past medical history significant for spinal cord injury/trauma (paraplegia x 15 years), DM2, CAD (s/p angioplasty/stent, h/o [place]), paroxysmal afib (on Eliquis), s/p CVA, CHF, COPD (on chronic 2L oxygen), lung ca (s/p RUL resection), h/o colon ca (s/p sigmoid resection), h/o UTI's ( pseudomonas) who presented to ED as a referral from Dr. Langley's office for rapid ventricular response with atrial fibrillation. Impression/Plan: #Atrial Fibrillation with RVR -Patient continued to be on atrial fibrillation, heart rate improved to 90s -Continue oral Cardizem by mouth 60 3 times a day -Troponin I negative -TSH is elevated however Free T4 within normal, will continue Synthroid and obtain endocrine consultation for dose adjustment -ECHO pending -Continue Eliquis #shortness of breath Initial thoughs was it could be a result of A. Fib with rapid ventricular response however after controlling the rate patient continued to complain of shortness of breath and platypnea. Pulmonary consultation was obtained with recommendation to start azithromycin for bronchitis, Symbicort. I spoke with Dr. Pleitez and he mentioned that every time patient have atrial fibrillation with rapid ventricular response she will end up having tachycardia-induced cardiomyopathy and congestive heart failure. He recommended discharging patient on Cardizem and switching lisinopril to losartan. #Hypothyroid- on Levothyroxine and obtain endocrine consultation for dose adjustment #HTN- patient on Lisinopril/Amlodipine on hold, blood pressure continue to be in the soft side. Well follow cardiac recommendation however meanwhile patient is on Cardizem 60 mg 3 times a day. #DM2- continue check glucoscans/sliding scale insulin-controlled #HL/CAD- on Atorvastatin. #Anxiety- patient was started on home medication Lorazepam 0.5 mg at bedtime however this morning she was very drowsy and lethargic. We'll discontinue lorazepam and start Rozerem for insomnia #Right shoulder pain-we'll obtain x-ray, start voltaren gel for pain Diet CDD3 Code DNR/DNI DVT prophylaxis Eliquis Problem List: 1. Atrial fibrillation 2. Bronchitis Pain Ratin Pain Location: Right shoulder Pain Goal: Pain 4 or less Pain Plan: See medication Tomorrow's Labs & Rationales: CBC in setting of anemia hemoccult BMP for borderline elevated K
[2017-04-11 07:52] LABS: ABSOLUTE BASOPHIL COUNT 0.1 /CUMM (0.0-0.2); ABSOLUTE EOSINOPHIL COUNT 0.3 /CUMM (0.0-0.7); ABSOLUTE GRANULOCYTE CT 4.5 /CUMM (1.4-6.5); ABSOLUTE LYMPH COUNT 1.9 /CUMM (1.2-3.4); ABSOLUTE MONOCYTE COUNT 0.5 /CUMM (0.10-0.60); BASOPHIL % 1.1 % (0.0-2.0); EOSINOPHIL % 3.6 % (0-5); GRANULOCYTE % 61.5 % (42.2-75.2); HEMATOCRIT 26.2 % (37-47); MEAN CORPUSCULAR HGB 30.1 PG (27.0-31.0); MEAN CORPUSCULAR HGB CONC 33.4 G/DL (33.0-37.0); MEAN CORPUSCULAR VOLUME 90.2 FL (81.0-99.0); MEAN PLATELET VOLUME 7.8 FL (7.4-10.4); PLATELET COUNT 411 /CUMM (130-400); RBC DISTRIBUTION WIDTH 14.7 % (11.5-14.5); RED BLOOD CELL CT 2.91 /CUMM (4.20-5.40); WHITE BLOOD CELL COUNT 7.2 /CUMM (4.8-10.8)
--- NOTE | 2017-04-11 10:07 | RADIOLOGY REPORT ---
EXAMINATION: CR SHOULDER, RIGHT CLINICAL INFORMATION: Right shoulder pain. COMPARISON: Contralateral left shoulder films from 12/27/2014. TECHNIQUE: Four views of the right shoulder. FINDINGS: Diffuse osteopenia. No acute fracture or dislocation. Superior subluxation of the humeral head relative to the glenoid is seen, suggesting underlying rotator cuff disease/tear. Glenohumeral joint and acromioclavicular joints are intact and unremarkable. The included right ribs are intact. Incidental note is made of chain link sutures seen in the right lung apex with associated pleural thickening, consistent with patient's history of prior right upper lobectomy. Increased reticular opacities in the central right lung are also partially included, most consistent with scarring. Calcification of the aortic arch is seen. IMPRESSION: 1. Diffuse osteopenia. No acute fracture or dislocation. 2. Superior subluxation of the right humeral head relative to the glenoid, suggesting underlying chronic rotator cuff tear. Clinical correlation requested. 3. Posttreatment changes in the right chest related to prior right upper lobectomy.
--- NOTE | 2017-04-11 10:28 | Cons- Pulmonary ---
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 Langley's office today for rapid Heart rate. States that she has been having worsening shortness of breath and dizziness since the past two days. She is also having some right shoulder pain. Denies fever, chills, chest pain, cough, syncope. Since she came in she has had a dry cough with no sputum production Allergies/Medications Allergies: Coded Allergies: amlodipine (Severe, C/P 05/27/16) codeine (Severe, C/P 05/27/16) morphine (Severe, C/P 05/27/16) omeprazole (Severe, C/P 05/27/16) Home Med List: Amlodipine Besylate 5 MG TABLET 1.5 TAB PO DAILY HEART/BP (Reported) Apixaban (Eliquis) 5 MG TABLET 5 MG PO BID afib . Atorvastatin Calcium 10 MG TABLET 1 TAB PO DAILY CHOLESTEROL (Reported) Cholecalciferol (Vitamin D3) (Vitamin D) 2,000 UNIT CAPSULE 1 CAP PO DAILY SUPPLEMENT (Reported) Levothyroxine Sodium (Levoxyl) 100 MCG TABLET 1 TAB PO DAILY AC THYROID ( Reported) Lisinopril (Zestril) 40 MG TABLET 1 TAB PO DAILY BP (Reported) Lorazepam (Ativan) 0.5 MG TABLET 1 TAB PO Q6-8H PRN ANXIETY (Reported) Metformin HCl 500 MG TABLET 1 TAB PO DAILY DM (Reported) Review of Systems Review of Systems Constitutional: Reports: see HPI. Past History Travel History Traveled to [place] past 21 day No Medical History Blood Transfusion Hx: Yes Neurological: paraplegia status post spine fx/fall intention tremor EENT: epistaxis Cardiovascular: AFIB (PAF), CAD (s/p stent to RCA vs PTCA), CHF, hypertension, hyperlipidemia, myocardial infarction Respiratory: COPD, interstitial lung disease, LUNG CA RUL LOBECTOMY O2 DEPENDENT 2-3L Gastrointestinal: lactose intolerance, [id number], SIGMOID COLECTOMY 02/13 colonoscopy fair prep - tics but no polyps 02/13- egd gastritis DIVERTICULOSIS COLI Hepatic: NONE Renal: urinary incontinence Musculoskeletal: chronic back pain (post fall), degen joint disease, BROKEN BACK 15 YEARS AGO UNABLE TO BEAR WEIGHT Psychiatric: anxiety Endocrine: diabetes, hypothyroidism Blood Disorders: NONE (chronic), anemia Cancer(s): lung cancer (s/p RUL lobectomy SC Ca), AdenoCa in situ- sigmoid resection PIGS FEET 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 , Age 70. FHx: stomach cancer FATHER ("some type of Ca"- not colon Ca). , Age 63. FH: cancer BROTHER FH: prostate cancer Psychosocial History Who Do You Live With? child, SHE LIVES WITH HER DAUGHTER Services at Home: Nursing, Oxygen Primary Language: Polish Smoking Status: Former Smoker Living Will? yes Power of [place] Roller/HCP? yes Name of POA/HCP: Pt's sonConstantino Functional Ability ADLs Needs Assist: dressing, eating, toileting, bathing. Ambulation: non-ambulatory (W/C) IADLs Needs Assist: shopping, housework, finances, food prep, telephone, transportation, medication admin. Exam & Diagnostic Data Last 24 Hrs of Vital Signs/I&O Vital Signs Date Time Temp Pulse Resp B/P B/P Pulse O2 O2 Flow FiO2 Mean Ox Delivery Rate 04/11 0823 94 Nasal 3.0L Cannula 04/11 0654 98.4 62 20 110/60 96 Nasal 2.0L Cannula 04/11 0602 72 110/60 04/11 0000 Nasal 3.0L Cannula 04/10 2215 98.4 84 20 95 04/10 2204 120/50 04/10 2136 92 120/50 04/10 2015 97 Nasal 2.0L Cannula 04/10 1637 75 112/60 04/10 1600 Nasal 3.0L Cannula 04/10 1441 97.7 91 18 102/56 98 Nasal 2.0L Cannula 04/10 1030 Nasal 2.0L Cannula 04/10 1030 96 Nasal 2.0L Cannula Intake & Output 04/11 1600 04/11 0800 04/11 0000 Intake Total 240 Output Total Balance 240 Intake, Oral 240 Number 2 Bowel Movements Last 48 Hrs of Labs/Twan: Laboratory Tests 04/11/17 0615: Anion Gap 10, Estimated GFR 53 L, BUN/Creatinine Ratio 25.0, CBC w Diff NO MAN DIFF REQ, RBC 2.91 L, MCV 90.2, MCH 30.1, RDW 14.7 H, MPV 7.8, Gran % 61.5, Lymphocytes % 26.9, Monocytes % 6.9, Eosinophils % 3.6, Basophils % 1.1, Absolute Granulocytes 4.5, Absolute Lymphocytes 1.9, Absolute Monocytes 0.5, Absolute Eosinophils 0.3, Absolute Basophils 0.1, PUBS MCHC 33.4 04/10/17 1245: CBC w Diff NO MAN DIFF REQ, RBC 3.09 L, MCV 90.7, MCH 30.0, RDW 14.9 H, MPV 7.5, Gran % 64.0, Lymphocytes % 24.4, Monocytes % 7.3, Eosinophils % 3.6, Basophils % 0.7, Absolute Granulocytes 4.4, Absolute Lymphocytes 1.7, Absolute Monocytes 0.5, Absolute Eosinophils 0.3, Absolute Basophils 0, PUBS MCHC 33.0 04/10/17 1100: Anion Gap 13, Estimated GFR > 60, BUN/Creatinine Ratio 26.7 H 04/10/17 0340: Troponin I 0.03 04/09/17 2202: Troponin I 0.03, Kus-X-Eefabvrbguf Pept 7440 H 04/09/17 2202: Lactic Acid 1.5 04/09/17 1450: Anion Gap 16, Estimated GFR 53 L, BUN/Creatinine Ratio 25.0, Glucose 159 H, Lactic Acid 4.1 H, Calcium 9.7, Magnesium 1.7, Total Bilirubin 0.7, AST 18, ALT 22, Alkaline Phosphatase 90, Troponin I 0.03, Total Protein 7.6, Albumin 3.9, Globulin 3.7, Albumin/Globulin Ratio 1.1, TSH 1.530, Free T4 2.32 H, PT 20.8 H , INR 1.99 H, APTT 37, CBC w Diff NO MAN DIFF REQ, RBC 3.93 L, MCV 90.9, MCH 29.5, RDW 14.6 H, MPV 7.9, Gran % 73.9, Lymphocytes % 18.2 L, Monocytes % 5.8, Eosinophils % 1.4, Basophils % 0.7, Absolute Granulocytes 7.2 H, Absolute Lymphocytes 1.8, Absolute Monocytes 0.6, Absolute Eosinophils 0.1, Absolute Basophils 0.1, PUBS MCHC 32.5 L 04/09/17 1430: TSH Cancelled, Free T4 Cancelled 04/09/17 1410: Urine Color Cancelled, Urine Clarity Cancelled, Urine pH Cancelled, Ur Specific [place] Cancelled, Urine Protein Cancelled, Urine Ketones Cancelled, Urine Nitrite Cancelled, Urine Bilirubin Cancelled, Urine Urobilinogen Cancelled, Ur Leukocyte Esterase Cancelled, Ur Microscopic Cancelled, Urine Hemoglobin Cancelled, Urine Glucose Cancelled Assessment/Plan Impression/Plan: General: WD/overweight female in mild distress; alert and oriented x 3 HEETN: NC/AT, PERRL, EOMI Neck: no JVD, no carotid bruit Heart: tachycardic and irregular Lungs: decreased breath sounds bilaterally without crackles Abdomen: soft, obese, NT, +ve bowel sounds Extremities: no edema Neuro: bilateral lower extremity paralysis 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 now presumed cured, hypertension, paroxysmal atrial fibrillation was on amiodarone (which has been stopped due to presumed toxicity before, however pt was not converted to sinus rhythm with this )and anticoagulation, previous tachycardia-induced acute pulmonary edema, drug-eluting stent to the RCA in May 2014, paraplegia, nosebleeds, chronic anemia with previous negative GI workup, recurrent bronchitis with mild interstitial lung disease, moderate obstructive pulmonary disease as well now comes in with * Rapid afib with shortness of breath with tachy cardia induced pulm edema * Lower lobe infiltrate prob due to atelectasis with underlying chronic ild, no active bacterial pna * Chronic anemia * No significant evidence suggestive of acute COPD exacerbation or ILD exacerbation * Paroxysmal atrial fibrillation, needs rate control med (seems to be off dilt) * Previous PCI with stent, * 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 * Pulmonary hypertension multifactorial * Chronic small airway disease, mild ILD on top of her mod COPD * Chronic paraplegia * Platypnea with no evidence of any shunt with previous work up for ASD or any shunt physiology neg, and no evidence of decompensated liver disease (is not short of breath while she sits in her wheel chair but cannot sit up in bed) * Chronic stable ischemic heart disease with stent as noted * Previous lung ca with no sig recurrence * Hypothryoid on supp 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
--- NOTE | 2017-04-11 12:32 | Cons- Endocrinology ---
General Information and HPI Consulting Request Date of Consult: 04/11/17 Requested By: medical team Reason for Consult: Abnormal thyroid test Source of Information: patient, family, old records Exam Limitations: no limitations History of Present Illness: This 81-year-old woman has a long-standing history of hypothyroidism. She is currently on levothyroxine 100 mcg daily. She entered the hospital because of atrial fibrillation with a rapid ventricular response. Her TSH when measured is 1.53 which is normal and her free T4 is elevated at 2.32. The patient has a complex past medical history. She has paraplegia following a spinal cord injury 19 years ago. She spends most of her time in a wheelchair or in bed. He has a known history of coronary artery disease status post stents. She also has COPD with resection of a right upper lobe lung cancer cancer. She is on chronic oxygen therapy at home. With regard to her thyroid her daughter states she has been on the same dose of levothyroxine for many years. Prior to levothyroxine therapy she was slowing down and getting confused. But since she has been on it she is doing much better. She does not take any vitamins at home except for vitamin D. The patient also has a history of diabetes for which she takes metformin at home. Allergies/Medications Allergies: Coded Allergies: amlodipine (Severe, C/P 05/27/16) codeine (Severe, C/P 05/27/16) morphine (Severe, C/P 05/27/16) omeprazole (Severe, C/P 05/27/16) Home Med List: Amlodipine Besylate 5 MG TABLET 1.5 TAB PO DAILY HEART/BP (Reported) Apixaban (Eliquis) 5 MG TABLET 5 MG PO BID afib . Atorvastatin Calcium 10 MG TABLET 1 TAB PO DAILY CHOLESTEROL (Reported) Cholecalciferol (Vitamin D3) (Vitamin D) 2,000 UNIT CAPSULE 1 CAP PO DAILY SUPPLEMENT (Reported) Levothyroxine Sodium (Levoxyl) 100 MCG TABLET 1 TAB PO DAILY AC THYROID ( Reported) Lisinopril (Zestril) 40 MG TABLET 1 TAB PO DAILY BP (Reported) Lorazepam (Ativan) 0.5 MG TABLET 1 TAB PO Q6-8H PRN ANXIETY (Reported) Metformin HCl 500 MG TABLET 1 TAB PO DAILY DM (Reported) Review of Systems Review of Systems Constitutional: Denies: chills, fever. Cardiovascular: Denies: chest pain. Respiratory: Reports: short of breath. GI: Denies: abdominal pain, nausea, vomiting. Genitourinary: Denies: no symptoms (reports urinary incontinence). Neurological/Psychological: Reports: unable to move lower ext (paraplegia). Hematologic/Endocrine: Denies: bleeding. Past History Travel History Traveled to [place] past 21 day No Medical History Blood Transfusion Hx: Yes Neurological: paraplegia status post spine fx/fall intention tremor EENT: epistaxis Cardiovascular: AFIB (PAF), CAD (s/p stent to RCA vs PTCA), CHF, hypertension, hyperlipidemia, myocardial infarction Respiratory: COPD, interstitial lung disease, LUNG CA RUL LOBECTOMY O2 DEPENDENT 2-3L Gastrointestinal: lactose intolerance, [id number], SIGMOID COLECTOMY 02/13 colonoscopy fair prep - tics but no polyps 02/13- egd gastritis DIVERTICULOSIS COLI Hepatic: NONE Renal: urinary incontinence Musculoskeletal: chronic back pain (post fall), degen joint disease, BROKEN BACK 15 YEARS AGO UNABLE TO BEAR WEIGHT Psychiatric: anxiety Endocrine: diabetes, hypothyroidism Blood Disorders: NONE (chronic), anemia Cancer(s): lung cancer (s/p RUL lobectomy [place] Ca), AdenoCa in situ- sigmoid resection 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 , Age 70. FHx: stomach cancer FATHER ("some type of Ca"- not colon Ca). , Age 63. FH: cancer BROTHER FH: prostate cancer Psychosocial History Who Do You Live With? child, SHE LIVES WITH HER DAUGHTER Services at Home: Nursing, Oxygen Primary Language: Pashto Smoking Status: Former Smoker Living Will? yes Power of Automatic Spreader Operator/HCP? yes Name of POA/HCP: Pt's sonConstantino Functional Ability ADLs Needs Assist: dressing, eating, toileting, bathing. Ambulation: non-ambulatory (W/C) IADLs Needs Assist: shopping, housework, finances, food prep, telephone, transportation, medication admin. Exam & Diagnostic Data Last 24 Hrs of Vital Signs/I&O Vital Signs Date Time Temp Pulse Resp B/P B/P Pulse O2 O2 Flow FiO2 Mean Ox Delivery Rate 04/11 822 94 Nasal 3.0L Cannula 04/11 653 98.4 62 20 110/60 96 Nasal 2.0L Cannula 04/11 601 72 110/60 04/11 0000 Nasal 3.0L Cannula 04/10 2215 98.4 84 20 95 04/104 120/50 04/10 2136 92 120/50 04/10 2014 97 Nasal 2.0L Cannula 04/10 1637 75 112/60 04/10 1600 Nasal 3.0L Cannula 04/10 1441 97.7 91 18 102/56 98 Nasal 2.0L Cannula Intake & Output 04/11 1600 04/11 0804/11 0000 Intake Total 240 Output Total Balance 240 Intake, Oral 240 Number 2 Bowel Movements Vital Signs Date Time Temp Pulse Resp B/P B/P Pulse O2 O2 Flow FiO2 Mean Ox Delivery Rate 04/11 822 94 Nasal 3.0L Cannula 04/11 653 98.4 62 20 110/60 96 Nasal 2.0L Cannula 04/11 601 72 110/60 04/11 0000 Nasal 3.0L Cannula 04/10 2215 98.4 84 20 95 04/104 120/50 04/10 2136 92 120/50 04/10 2014 97 Nasal 2.0L Cannula 04/10 1637 75 112/60 04/10 1600 Nasal 3.0L Cannula 04/10 1441 97.7 91 18 102/56 98 Nasal 2.0L Cannula Intake & Output 04/11 1600 04/11 0804/11 0000 Intake Total 240 Output Total Balance 240 Intake, Oral 240 Number 2 Bowel Movements Physical Exam General Appearance: alert, awake, shortness of breath when speaking Head: normal appearance Neck: normal inspection Respiratory: decreased breath sounds Cardiovascular: irregularly irregular Gastrointestinal: normal bowel sounds, soft Extremities: normal inspection Neurologic/Psych: awake, alert, motor/sensory deficits (paraplegia) Skin: facial hirsutism and thinning of hair on scalp Labs/Twan Results: Laboratory Tests 04/11 04/10 0615 1245 Chemistry Sodium (137 - 145 mmol/L) 138 Potassium (3.5 - 5.1 mmol/L) 5.1 Chloride (98 - 107 mmol/L) 104 Carbon Dioxide (22 - 30 mmol/L) 23 Anion Gap (5 - 16) 10 BUN (7 - 17 mg/dL) 25 H Creatinine (0.5 - 1.0 mg/dL) 1.0 Estimated GFR (>60 ml/min) 53 L BUN/Creatinine Ratio (7 - 25 %) 25.0 Hematology CBC w Diff NO MAN DIFF REQ NO MAN DIFF REQ WBC (4.8 - 10.8 /CUMM) 7.2 6.9 RBC (4.20 - 5.40 /CUMM) 2.91 L 3.09 L Hgb (12.0 - 16.0 G/DL) 8.8 L 9.3 L Hct (37 - 47 %) 26.2 L 28.0 L MCV (81.0 - 99.0 FL) 90.2 90.7 MCH (27.0 - 31.0 PG) 30.1 30.0 RDW (11.5 - 14.5 %) 14.7 H 14.9 H Plt Count (130 - 400 /CUMM) 411 H 451 H MPV (7.4 - 10.4 FL) 7.8 7.5 Gran % (42.2 - 75.2 %) 61.5 64.0 Lymphocytes % (20.5 - 51.1 %) 26.9 24.4 Monocytes % (1.7 - 9.3 %) 6.9 7.3 Eosinophils % (0 - 5 %) 3.6 3.6 Basophils % (0.0 - 2.0 %) 1.1 0.7 Absolute Granulocytes (1.4 - 6.5 /CUMM) 4.5 4.4 Absolute Lymphocytes (1.2 - 3.4 /CUMM) 1.9 1.7 Absolute Monocytes (0.10 - 0.60 /CUMM) 0.5 0.5 Absolute Eosinophils (0.0 - 0.7 /CUMM) 0.3 0.3 Absolute Basophils (0.0 - 0.2 /CUMM) 0.1 0 PUBS MCHC (33.0 - 37.0 G/DL) 33.4 33.0 Assessment/Plan Assessment/Plan This 81-year-old woman has a known history of hypothyroidism going back many years. She has been on the same dose of thyroid hormone in the form of levothyroxine 100 mcg daily for many years. Her daughter states she has lost weight. Her dosage has not changed. She had abnormal thyroid function tests on admission with an elevated free T4 and a normal TSH. I checked with her daughter and the only vitamin she was taking was vitamin D. She was not on Biotin at home which can interfere with the assay for thyroid hormone. The fact that the patient's TSH is normal suggest that she is euthyroid on her present dose of thyroid hormone despite the elevated free T4. However we should evaluate her thyroid status further. I would repeat the patient's TSH free T4 and total T3. We should also check thyroid antibodies in the form of anti-TPO and antithyroglobulin. Review of the patient's facial hirsutism we should measure a testosterone level as well as a DHEAS level. In view of her age and the fact that she is not on B12 supplements I feel we should also measure vitamin B12.. Consult Acknowledgment - Thank you for your consult request.
[2017-04-11 16:04] VITALS: BP 122/56
--- NOTE | 2017-04-11 20:57 | PN- Cardiology ---
Subjective Subjective: * Breathing is improved. No chest pain. * atrial fibrillation Objective Vital Signs and I&Os Vital Signs Date Time Temp Pulse Resp B/P B/P Pulse O2 O2 Flow FiO2 Mean Ox Delivery Rate 04/11 1604 98.7 115 20 122/56 91 Nasal 2.0L Cannula 04/11 1600 Nasal 2.0L Cannula 04/11 1333 97 Nasal 2.0L Cannula 04/11 1305 114/62 04/11 0823 94 Nasal 3.0L Cannula 04/11 0654 98.4 62 20 110/60 96 Nasal 2.0L Cannula 04/11 0602 72 110/60 04/11 0000 Nasal 3.0L Cannula 04/10 2215 98.4 84 20 95 04/10 2204 120/50 04/10 2136 92 120/50 Intake & Output 04/11 1600 04/11 0800 04/11 0000 04/10 1600 04/10 0800 04/10 0000 Intake Total 240 250 Output Total Balance 240 250 Intake, IV 250 Intake, Oral 240 Number 2 1 Bowel Movements Patient 142 lb Weight Weight Bed scale Measurement Method Physical Exam: General: WD/overweight female in mild distress; alert and oriented x 3 HEETN: NC/AT, PERRL, EOMI Neck: no JVD, no carotid bruit Heart: tachycardic and irregular Lungs: decreased breath sounds bilaterally without crackles Abdomen: soft, obese, NT, +ve bowel sounds Extremities: no edema Neuro: bilateral lower extremity paralysis Assessment/Plan Assessment/Plan * Patient is improved. Still mildly tachycardic in the setting of atrial fibrillation. Begin Metoprolol 12.5mg BID. Continue cardizem at 60mg PO TID. Continue telemetry? Yes
[2017-04-11 23:18] VITALS: BP 132/76
[2017-04-12 06:00] VITALS: BP 100/68
--- NOTE | 2017-04-12 07:54 | PN- Housestaff ---
See Addendum Subjective Follow-up For: Atrial fibrillation with rapid ventricular response Subjective: Patient was seen and examined this morning, doing well, HR controlled however BP is slightly at soft side this morning, patient did not offer any complaints except the right shoulder pain, gets better with voltaren gel though, range of motion is good except for extension, had moderate pain. Review of Systems Constitutional: Reports: see HPI. Objective Last 24 Hrs of Vital Signs/I&O Vital Signs Date Time Temp Pulse Resp B/P B/P Pulse O2 O2 Flow FiO2 Mean Ox Delivery Rate 04/12 1348 96 Nasal 2.0L Cannula 04/12 1321 96 122/84 04/12 1320 96 122/84 04/12 0854 83 136/72 04/12 0852 83 136/72 04/12 0800 Nasal 2.0L Cannula 04/12 0700 98.0 77 18 97 04/12 0600 91 100/68 04/12 0525 91 100/68 04/12 0159 87 128/80 04/12 0000 Nasal 2.0L Cannula 04/11 2318 97.8 105 20 132/76 97 Nasal 2.0L Cannula 04/11 2146 105 132/76 04/11 2055 96 Nasal 2.0L Cannula 04/11 1604 98.7 115 20 122/56 91 Nasal 2.0L Cannula 04/11 1600 Nasal 2.0L Cannula Intake & Output 04/12 1600 04/12 0800 04/12 0000 Intake Total 60 220 Output Total Balance 60 220 Intake, Oral 60 220 Physical Exam General Appearance: Alert, Oriented X3, Cooperative, No Acute Distress Skin: No Rashes Skin Temp/Moisture Exam: Warm/Dry HEENT: Atraumatic, PERRLA, EOMI, Mucous Membr. moist/pink Neck: Supple Cardiovascular: Normal S1, Normal S2, No Murmurs, irregular irregular Lungs: Clear to Auscultation, Normal Air Movement Abdomen: Normal Bowel Sounds, Soft, No Tenderness Neurological: Paraplagia UE strenght 5/5 and intact sensation Extremities: No Clubbing, No Cyanosis, No Edema, Normal Pulses Assessment/Plan Assessment: Ms. Boston is 81 -year-old female with past medical history significant for spinal cord injury/trauma (paraplegia x 15 years), DM2, CAD (s/p angioplasty/stent, h/o [place]), paroxysmal afib (on Eliquis), s/p CVA, CHF, COPD (on chronic 2L oxygen), lung ca (s/p RUL resection), h/o colon ca (s/p sigmoid resection), h/o UTI's ( pseudomonas) who presented to ED as a referral from Dr. Langley's office for rapid ventricular response with atrial fibrillation. Impression/Plan: #Atrial Fibrillation with RVR -Patient continued to be on atrial fibrillation, heart rate improved to 90s -Continue oral Cardizem by mouth 60 3 times a day -Troponin I negative -TSH is elevated however Free T4 within normal, will continue Synthroid and obtain endocrine consultation for dose adjustment -ECHO pending -Continue Eliquis #shortness of breath Initial thoughs was it could be as a result of A. Fib with rapid ventricular response however after controlling the rate patient continued to complain of shortness of breath and platypnea. Pulmonary consultation was obtained, thanks for recommendation, continue azithromycin for 5-7 days for bronchitis, Symbicort. Ptaient should be on rate control medication to prevent rapid ventricular response as she has tachycardia-induced cardiomyopathy. Pulmonary recommendation for Cardizem and switching lisinopril to losartan given Hx of cough. #Hypothyroid- on Levothyroxine. Endocrine consultation was obtained, thanks recommendation. The recommendation to continue same dose of Synthroid 100 g daily. TSH and free T4 are 1.53 and 2.32 Repeated TSH, free T4 are 0.476, 2.37. Total T3 0.8 and free T3 2 0.1 both of low # Facial Hirsutism Endocrinology recommended testosterone level which is 18.2 within normal, TSH E a still Pending #HTN- patient on Lisinopril/Amlodipine on hold. Continue Cardizem 60 mg 3 times a day. Continue metoprolol 12.5 mg twice a day #DM2- continue check glucoscans/sliding scale insulin-controlled #HL/CAD- on Atorvastatin. #Anxiety- Continue Rozerem for insomnia #Right shoulder pain- X-ray IMPRESSION: 1. Diffuse osteopenia. No acute fracture or dislocation. 2. Superior subluxation of the right humeral head relative to the glenoid, suggesting underlying chronic rotator cuff tear. 3. Posttreatment changes in the right chest related to prior right upper lobectomy. -Continue voltaren gel for pain Diet CDD3 Code DNR/DNI DVT prophylaxis Eliquis Problem List: 1. Atrial fibrillation Pain Ratin Pain Location: right shoulder Pain Goal: Pain 4 or less Pain Plan: See medication Tomorrow's Labs & Rationales: N/A
[2017-04-12 08:20] LABS: ABSOLUTE BASOPHIL COUNT 0.1 /CUMM (0.0-0.2); ABSOLUTE EOSINOPHIL COUNT 0.3 /CUMM (0.0-0.7); ABSOLUTE GRANULOCYTE CT 4.1 /CUMM (1.4-6.5); ABSOLUTE LYMPH COUNT 1.6 /CUMM (1.2-3.4); ABSOLUTE MONOCYTE COUNT 0.5 /CUMM (0.10-0.60); EOSINOPHIL % 4.8 % (0-5); GRANULOCYTE % 62.6 % (42.2-75.2); HEMATOCRIT 27.7 % (37-47); MEAN CORPUSCULAR HGB 30.1 PG (27.0-31.0); MEAN CORPUSCULAR VOLUME 91.3 FL (81.0-99.0); MEAN PLATELET VOLUME 7.7 FL (7.4-10.4); PLATELET COUNT 447 /CUMM (130-400); RBC DISTRIBUTION WIDTH 15.1 % (11.5-14.5); RED BLOOD CELL CT 3.03 /CUMM (4.20-5.40); WHITE BLOOD CELL COUNT 6.6 /CUMM (4.8-10.8)
[2017-04-12 08:52] VITALS: BP 136/72
--- NOTE | 2017-04-12 10:23 | PN- Pulmonary ---
Subjective HPI/Critical Care Issues: Stable In afib with heart rate of 82 Objective Current Medications: Current Medications Sig/Jonel Start time Last Medication Dose Route Stop Time Status Admin Albuterol Sulfate 3 ML Q4P PRN 04/10 1030 AC 04/10 INH 2015 Apixaban 5 MG BID 04/09 2200 AC 04/12 PO 0854 Atorvastatin Calcium 10 MG 1700 04/10 1700 AC 04/11 PO 1739 Azithromycin 250 MG DAILY 04/11 1131 AC 04/12 PO 0854 Budesonide/ 2 PUF BID 04/11 1126 AC 04/12 Formoterol Fumarate INH 0857 Cholecalciferol 1,000 IU DAILY 04/10 1000 AC 04/12 PO 0854 Diclofenac Sodium 1 JC 4 TIMES/DAY 04/11 1000 AC 04/12 TOP 0854 Diltiazem HCl 60 MG Q8 04/10 1615 AC 04/12 PO 0525 Insulin Aspart 0 TIDAC 04/10 0800 AC 04/11 SC 1206 Levothyroxine Sodium 0.1 MG DAILY AC 04/11 0700 AC 04/12 PO 0525 Metoprolol Tartrate 12.5 MG BID 04/12 1000 DC PO Metoprolol Tartrate 12.5 MG BID 04/12 0130 AC 04/12 PO 0854 Ramelteon 4 MG QPM 04/11 2200 CAN PO Ramelteon 8 MG QPM 04/11 2200 AC 04/11 PO 2146 Vital Signs & I&O Last 24 Hrs of Vitals and I&O: Vital Signs Date Time Temp Pulse Resp B/P B/P Pulse O2 O2 Flow FiO2 Mean Ox Delivery Rate 04/12 0854 83 136/72 04/12 0852 83 136/72 04/12 0800 Nasal 2.0L Cannula 04/12 0700 98.0 77 18 97 04/12 0600 91 100/68 04/12 0525 91 100/68 04/12 0159 87 128/80 04/12 0000 Nasal 2.0L Cannula 04/11 2318 97.8 105 20 132/76 97 Nasal 2.0L Cannula 04/11 2146 105 132/76 04/11 2054 96 Nasal 2.0L Cannula 04/11 1604 98.7 115 20 122/56 91 Nasal 2.0L Cannula 04/11 1600 Nasal 2.0L Cannula 04/11 1333 97 Nasal 2.0L Cannula 04/11 1305 114/62 Intake & Output 04/12 1600 04/12 0800 04/12 0000 Intake Total 60 220 Output Total Balance 60 220 Intake, Oral 60 220 Laboratory Tests 04/12 04/12 0644 0600 Chemistry Sodium (137 - 145 mmol/L) 139 Potassium (3.5 - 5.1 mmol/L) 5.1 Chloride (98 - 107 mmol/L) 105 Carbon Dioxide (22 - 30 mmol/L) 22 Anion Gap (5 - 16) 11 BUN (7 - 17 mg/dL) 25 H Creatinine (0.5 - 1.0 mg/dL) 1.0 Estimated GFR (>60 ml/min) 53 L BUN/Creatinine Ratio (7 - 25 %) 25.0 Vitamin B12 (239 - 931 pg/mL) 450 TSH (0.270 - 4.200 uIU/mL) 0.476 Free T4 (0.85 - 1.93 ng/dL) 2.37 H Total T3 (0.97 - 1.69 ng/mL) 0.80 L Total Testosterone (5.71 - 77.0 ng/dL) 18.2 DHEA Sulfate Interp Pending Hematology CBC w Diff NO MAN DIFF REQ WBC (4.8 - 10.8 /CUMM) 6.6 RBC (4.20 - 5.40 /CUMM) 3.03 L Hgb (12.0 - 16.0 G/DL) 9.1 L Hct (37 - 47 %) 27.7 L MCV (81.0 - 99.0 FL) 91.3 MCH (27.0 - 31.0 PG) 30.1 RDW (11.5 - 14.5 %) 15.1 H Plt Count (130 - 400 /CUMM) 447 H MPV (7.4 - 10.4 FL) 7.7 Gran % (42.2 - 75.2 %) 62.6 Lymphocytes % (20.5 - 51.1 %) 23.9 Monocytes % (1.7 - 9.3 %) 7.7 Eosinophils % (0 - 5 %) 4.8 Basophils % (0.0 - 2.0 %) 1.0 Absolute Granulocytes (1.4 - 6.5 /CUMM) 4.1 Absolute Lymphocytes (1.2 - 3.4 /CUMM) 1.6 Absolute Monocytes (0.10 - 0.60 /CUMM) 0.5 Absolute Eosinophils (0.0 - 0.7 /CUMM) 0.3 Absolute Basophils (0.0 - 0.2 /CUMM) 0.1 PUBS MCHC (33.0 - 37.0 G/DL) 33.0 Immunology Thyroglobulin Antibody (< 61 U/mL) Pending Thyroid Peroxidase Ab (< 61 U/mL) Pending 04/11 04/10 0615 1245 Chemistry Sodium (137 - 145 mmol/L) 138 Potassium (3.5 - 5.1 mmol/L) 5.1 Chloride (98 - 107 mmol/L) 104 Carbon Dioxide (22 - 30 mmol/L) 23 Anion Gap (5 - 16) 10 BUN (7 - 17 mg/dL) 25 H Creatinine (0.5 - 1.0 mg/dL) 1.0 Estimated GFR (>60 ml/min) 53 L BUN/Creatinine Ratio (7 - 25 %) 25.0 Free T3 (2.34 - 5.61 pg/mL) 2.1 L Hematology CBC w Diff NO MAN DIFF REQ NO MAN DIFF REQ WBC (4.8 - 10.8 /CUMM) 7.2 6.9 RBC (4.20 - 5.40 /CUMM) 2.91 L 3.09 L Hgb (12.0 - 16.0 G/DL) 8.8 L 9.3 L Hct (37 - 47 %) 26.2 L 28.0 L MCV (81.0 - 99.0 FL) 90.2 90.7 MCH (27.0 - 31.0 PG) 30.1 30.0 RDW (11.5 - 14.5 %) 14.7 H 14.9 H Plt Count (130 - 400 /CUMM) 411 H 451 H MPV (7.4 - 10.4 FL) 7.8 7.5 Gran % (42.2 - 75.2 %) 61.5 64.0 Lymphocytes % (20.5 - 51.1 %) 26.9 24.4 Monocytes % (1.7 - 9.3 %) 6.9 7.3 Eosinophils % (0 - 5 %) 3.6 3.6 Basophils % (0.0 - 2.0 %) 1.1 0.7 Absolute Granulocytes (1.4 - 6.5 /CUMM) 4.5 4.4 Absolute Lymphocytes (1.2 - 3.4 /CUMM) 1.9 1.7 Absolute Monocytes (0.10 - 0.60 /CUMM) 0.5 0.5 Absolute Eosinophils (0.0 - 0.7 /CUMM) 0.3 0.3 Absolute Basophils (0.0 - 0.2 /CUMM) 0.1 0 PUBS MCHC (33.0 - 37.0 G/DL) 33.4 33.0 04/10 1100 Chemistry Sodium (137 - 145 mmol/L) 139 Potassium (3.5 - 5.1 mmol/L) 4.8 Chloride (98 - 107 mmol/L) 106 Carbon Dioxide (22 - 30 mmol/L) 20 L Anion Gap (5 - 16) 13 BUN (7 - 17 mg/dL) 24 H Creatinine (0.5 - 1.0 mg/dL) 0.9 Estimated GFR (>60 ml/min) > 60 BUN/Creatinine Ratio (7 - 25 %) 26.7 H Impression/Plan Impression/Plan Impression/Plan: General: WD/overweight female in mild distress; alert and oriented x 3 HEETN: NC/AT, PERRL, EOMI Neck: no JVD, no carotid bruit Heart: tachycardic and irregular Lungs: decreased breath sounds bilaterally without crackles Abdomen: soft, obese, NT, +ve bowel sounds Extremities: no edema Neuro: bilateral lower extremity paralysis 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 now presumed cured, hypertension, paroxysmal atrial fibrillation was on amiodarone (which has been stopped due to presumed toxicity before, however pt was not converted to sinus rhythm with this )and anticoagulation, previous tachycardia-induced acute pulmonary edema, drug-eluting stent to the RCA in May 2014, paraplegia, nosebleeds, chronic anemia with previous negative GI workup, recurrent bronchitis with mild interstitial lung disease, moderate obstructive pulmonary disease as well now comes in with * Resolved Rapid afib with shortness of breath with tachy cardia induced pulm edema * Lower lobe infiltrate prob due to atelectasis with underlying chronic ild, no active bacterial pna * Chronic anemia * No significant evidence suggestive of acute COPD exacerbation or ILD exacerbation * Paroxysmal atrial fibrillation, needs rate control med (seems to be off dilt) * Previous PCI with stent, * 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 * Pulmonary hypertension multifactorial * Chronic small airway disease, mild ILD on top of her mod COPD * Chronic paraplegia * Platypnea with no evidence of any shunt with previous work up for ASD or any shunt physiology neg, and no evidence of decompensated liver disease (is not short of breath while she sits in her wheel chair but cannot sit up in bed) * Chronic stable ischemic heart disease with stent as noted * Previous lung ca with no sig recurrence * Hypothryoid on 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
--- NOTE | 2017-04-12 10:32 | PN- Housestaff ---
Assessment/Plan Assessment: Ms. Boston is 81 -year-old female with past medical history significant for spinal cord injury/trauma (paraplegia x 15 years), DM2, CAD (s/p angioplasty/stent, h/o ND), paroxysmal afib (on Eliquis), s/p CVA, CHF, COPD (on chronic 2L oxygen), lung ca (s/p RUL resection), h/o colon ca (s/p sigmoid resection), h/o UTI's ( pseudomonas) who presented to ED as a referral from Dr. Langley's office for rapid ventricular response with atrial fibrillation. Impression/Plan: #Atrial Fibrillation with RVR -Patient continued to be on atrial fibrillation, heart rate improved to 90s -Continue oral Cardizem by mouth 60 3 times a day -Troponin I negative -TSH is elevated however Free T4 within normal, will continue Synthroid and obtain endocrine consultation for dose adjustment -ECHO pending -Continue Eliquis #shortness of breath Initial thoughs was it could be a result of A. Fib with rapid ventricular response however after controlling the rate patient continued to complain of shortness of breath and platypnea. Pulmonary consultation was obtained with recommendation to start azithromycin for bronchitis, Symbicort. I spoke with Dr. Pleitez and he mentioned that every time patient have atrial fibrillation with rapid ventricular response she will end up having tachycardia-induced cardiomyopathy and congestive heart failure. He recommended discharging patient on Cardizem and switching lisinopril to losartan. #Hypothyroid- on Levothyroxine and obtain endocrine consultation for dose adjustment #HTN- patient on Lisinopril/Amlodipine on hold, blood pressure continue to be in the soft side. Well follow cardiac recommendation however meanwhile patient is on Cardizem 60 mg 3 times a day. #DM2- continue check glucoscans/sliding scale insulin-controlled #HL/CAD- on Atorvastatin. #Anxiety- patient was started on home medication Lorazepam 0.5 mg at bedtime however this morning she was very drowsy and lethargic. We'll discontinue lorazepam and start Rozerem for insomnia #Right shoulder pain-we'll obtain x-ray, start voltaren gel for pain Diet CDD3 Code DNR/DNI DVT prophylaxis Eliquis
[2017-04-12 13:20] VITALS: BP 122/84
[2017-04-12 16:58] VITALS: BP 112/60
--- NOTE | 2017-04-12 19:20 | PN- Cardiology ---
Subjective Subjective: * Breathing is improved although not quite to baseline. * atrial fibrillation with improved heart rate Objective Vital Signs and I&Os Vital Signs Date Time Temp Pulse Resp B/P B/P Pulse O2 O2 Flow FiO2 Mean Ox Delivery Rate 04/12 1729 98 Nasal 2.0L Cannula 04/12 1658 98.0 84 18 112/60 96 04/12 1348 96 Nasal 2.0L Cannula 04/12 1321 96 122/84 04/12 1320 96 122/84 04/12 0854 83 136/72 04/12 0852 83 136/72 04/12 0800 Nasal 2.0L Cannula 04/12 0700 98.0 77 18 97 04/12 0600 91 100/68 04/12 0525 91 100/68 04/12 0159 87 128/80 04/12 0000 Nasal 2.0L Cannula 04/11 2318 97.8 105 20 132/76 97 Nasal 2.0L Cannula 04/11 2146 105 132/76 04/11 2055 96 Nasal 2.0L Cannula Intake & Output 04/12 1600 04/12 0800 04/12 0000 04/11 1600 04/11 0800 04/11 0000 Intake Total 60 220 240 Output Total Balance 60 220 240 Intake, Oral 60 220 240 Number 2 Bowel Movements Physical Exam: General: WD/overweight female in mild distress; alert and oriented x 3 HEETN: NC/AT, PERRL, EOMI Neck: no JVD, no carotid bruit Heart: irregularly irregular Lungs: decreased breath sounds bilaterally without crackles Abdomen: soft, obese, NT, +ve bowel sounds Extremities: no edema Neuro: bilateral lower extremity paralysis Assessment/Plan Assessment/Plan * Patient is improved. Atrial fibrillation with controlled heart rate on a small dose of beta juaquin. Continue cardizem at 60mg PO TID. Continue telemetry? Yes
[2017-04-12 23:51] VITALS: BP 110/54
[2017-04-13] MEDS ORDERED: ROZEREM8 M1 PO (07:48)
[2017-04-13] MEDS ORDERED: CARDIZEM60 M1 PO (07:48)
[2017-04-13] MEDS ORDERED: SYMBICORT 16010.2 GM INH (07:48)
[2017-04-13] MEDS ORDERED: METOPROLOL TART25 M1 PO ×2 (07:48→11:45)
[2017-04-13] MEDS ORDERED: AZITHROMYCIN250 M1 PO (07:48)
[2017-04-13] MEDS ORDERED: VOLTAREN100 GM TOP (07:48)
--- NOTE | 2017-04-13 07:50 | Patient Discharge Instructions ---
Discharge Instructions General Discharge Information You were seen/treated for: Rapid heart rate Watch for these problems: chest pain, palpation, shortness of breath Special Instructions: -PLEASE FOLLOW UP WITH YOUR PRIMARY CARE PHYSICIAN AFTER DISCHARGE -PLEASE FOLLOW UP WITH DR. GARNER AFTER DISCHARGE -PLEASE FOLLOW UP WITH DR. MICHAEL AFTER DISCHARGE -PLEASE FOLLOW UP WITH DR. RIBEIRO FOR THYROID PROBLEM AFTER DISCHARGE -PLEASE TAKE MEDICATION INSTRUCTED -PLEASE GET A THYROID FUNCTION TEST NEXT MONTH 05/14/16 Acute Coronary Syndrome Inclusion Criteria At DC or during hospital stay patient has or had the following: ACS DIAGNOSIS No Discharge Core Measures Meds if any: Prescribed or Continued at Discharge Meds if any: NOT Prescribed or Continued at Discharge Congestive Heart Failure Inclusion Criteria At DC or during hospital stay patient has or had the following: CHF DIAGNOSIS No Discharge Core Measures Meds if any: Prescribed or Continued at Discharge Meds if any: NOT Prescribed or Continued at Discharge Cerebrovascular accident Inclusion Criteria At DC or during hospital stay patient has or had the following: CVA/TIA Diagnosis No Discharge Core Measures Meds if any: Prescribed or Continued at Discharge Meds if any: NOT Prescribed or Continued at Discharge Venous thromboembolism Inclusion Criteria VTE Diagnosis No VTE Type NONE VTE Confirmed by (Test) NONE Discharge Core Measures - Per Current guidelines, there needs to be overlap - treatment for the first 5 days of Warfarin therapy. - If discharged on Warfarin prior to 5 days of - overlap therapy, the patient will need to be - assessed for post discharge needs including - *Post discharge parental anticoagulation - *Warfarin and/or parental anticoagulation education - *Follow up date to check INR post discharge At least 5 days overlap therapy as Inpatient Yes Meds if any: Prescribed or Continued at Discharge Note: Overlap Therapy is Warfarin and Anticoagulant Meds if any: NOT Prescribed or Continued at Discharge
--- NOTE | 2017-04-13 08:11 | ECHOCARDIOGRAM REPORT ---
VINCENT DRUMMOND Age: 81 : 1935 Gender: F Exam Date: 04/11/2017 16:53 Exam Location: [address] Ht (in): 62 Wt (lb): 140 BSA: 1.68 BP: 100 / 80 Ordering Physician: Chiquita Mora MD Referring Physician: Padilla Langley MD, PhD Technologist: Gayle Dickerson [facility] Room Number: 179-02 Indications: SHORTNESS OF BREATH Rhythm: Atrial fibrillation Technical Quality: good FINDINGS Left Ventricle Normal left ventricular size with mild left ventricular hypertrophy. Normal systolic function with no obvious regional wall motion abnormalities. Normal left ventricular diastolic filling pattern for age. The ejection fraction is visually estimated at 60%. Right Ventricle The right ventricle is normal in size and function. Right Atrium The right atrium is normal in size. Left Atrium The left atrium is normal in size. The interatrial septum is intact. Mitral Valve The mitral valve demonstrate mild annular calcification with normal function. There is moderate mitral regurgitation. Aortic Valve Structurally normal aortic valve without significant sclerosis or stenosis. There is mild aortic regurgitation. Tricuspid Valve The tricuspid valve is normal in structure and function. There is mild tricuspid regurgitation. Pulmonary artery systolic pressure is normal. Pulmonic Valve Structurally normal pulmonic valve. There is trace pulmonic regurgitation. Pericardium Normal pericardium without effusion. No pleural effusion. Great Vessels Normal aortic root dimension. The aortic arch and great vessels are well seen and are normal. CONCLUSIONS 1. Normal EF of 60%. 2. Mild left ventricular hypertrophy. 3. Moderate mitral regurgitation. 4. Mild tricuspid reurgitation. 5. Mild aortic regurgitation. 6. Trace pulmonic regurgitation. Padilla Langley M.D. (Electronically Signed) Final Date: 13 April 2017 08:10 MEASUREMENTS (Male / Female) Normal Values 2D ECHO LV Diastolic Diameter PLAX 3.5 cm 4.2 - 5.9 / 3.9 - 5.3 cm LV Systolic Diameter PLAX 1.7 cm 2.1 - 4.0 cm LV Fractional Shortening PLAX 51.4 % 25 - 46 % LV Ejection Fraction 2D Teich 83.5 % IVS Diastolic Thickness 1.5 cm LVPW Diastolic Thickness 1.5 cm LV Relative Wall Thickness 0.9 RV Internal Dim ED PLAX 3.2 cm 1.9 - 3.8 cm LVOT Diameter 1.8 cm Aortic Root Diameter 2.7 cm LA Systolic Diameter LX 3.5 cm 3.0 - 4.0 / 2.7 - 3.8 cm LA Volume 49.0 cm 18 - 58 / 22 - 52 cm Ascending Aorta Diameter 2.9 cm DOPPLER AV Peak Velocity 132.0 cm/s AV Peak Gradient 7.0 mmHg AV Mean Velocity 87.7 cm/s AV Mean Gradient 4.0 mmHg AV Velocity Time Integral 27.4 cm LVOT Peak Velocity 69.3 cm/s LVOT Peak Gradient 1.9 mmHg LVOT Mean Velocity 43.9 cm/s LVOT Mean Gradient 1.0 mmHg LVOT Velocity Time Integral 12.1 cm LVOT Stroke Volume 30.8 cm AV Area Cont Eq vti 1.1 cm AV Area Cont Eq pk 1.3 cm MV Peak Velocity 155.0 cm/s MV Peak Gradient 9.6 mmHg MV Mean Velocity 75.9 cm/s MV Mean Gradient 3.0 mmHg Mitral E Point Velocity 143.0 cm/s Mitral A Point Velocity 68.6 cm/s Mitral E to A Ratio 2.1 MV PHT Velocity 167.0 cm/s MV Deceleration [place] 645.0 cm/s MV Pressure Half Time 77.7 ms MV Area PHT 2.8 cm MV Deceleration Time 187.0 ms TR Peak Velocity 313.0 cm/s TR Peak Gradient 39.2 mmHg Right Atrial Pressure 5.0 mmHg Pulmonary Artery Systolic Pressu 44.2 mmHg Right Ventricular Systolic Press 44.2 mmHg PV Peak Velocity 99.3 cm/s PV Peak Gradient 3.9 mmHg PV Mean Velocity 68.5 cm/s PV Mean Gradient 2.0 mmHg PV Velocity Time Integral 23.7 cm LV E' Lateral Velocity 2.7 cm/s Mitral E to LV E' Lateral Ratio 52.4 LV E' Septal Velocity 4.1 cm/s Mitral E to LV E' Septal Ratio 35.0
--- NOTE | 2017-04-13 08:35 | PN- Endocrinology ---
Assessment/Plan Assessment: The patient states she feels okay. Repeat thyroid function tests revealed that her free T4 is still elevated at 2.37 and her TSH is 0.476. The TSH is at the lower end of the normal range. The patient's antithyroglobulin antibodies are highly positive at greater than 500. Plan: This patient has Gem's thyroiditis. Her thyroid tests are borderline high. Suggest reduce levothyroxine to 88 mcg daily. Repeat thyroid blood work including a free T4 and TSH in 1 month. Subjective Subjective: Feels okay Review of Systems Constitutional: Denies: chills, fever. Cardiovascular: Denies: chest pain. Respiratory: Reports: sputum production (when talking). Gastrointestinal: Denies: abdominal pain, nausea, vomiting. Objective Last 24 Hrs of Vital Signs/I&O Vital Signs Date Time Temp Pulse Resp B/P B/P Pulse O2 O2 Flow FiO2 Mean Ox Delivery Rate 04/13 0508 68 110/62 04/13 0000 Nasal 2.0L Cannula 04/12 2350 98.1 71 20 110/54 94 04/12 210 94 110/54 04/12 2101 94 110/54 04/12 1729 98 Nasal 2.0L Cannula 04/12 1658 98.0 84 18 112/60 96 04/12 1348 96 Nasal 2.0L Cannula 04/12 1321 96 122/84 04/12 1320 96 122/84 04/12 0854 83 136/72 04/12 0852 83 136/72 Intake & Output 04/13 1600 04/13 0800 04/13 0000 Intake Total 30 272 Output Total Balance 30 272 Intake, IV 10 Intake, Oral 30 262 Vital Signs Date Time Temp Pulse Resp B/P B/P Pulse O2 O2 Flow FiO2 Mean Ox Delivery Rate 04/13 0508 68 110/62 04/13 0000 Nasal 2.0L Cannula 04/12 2351 98.1 71 20 110/54 94 04/12 2101 94 110/54 04/12 2101 94 110/54 04/12 1729 98 Nasal 2.0L Cannula 04/12 1658 98.0 84 18 112/60 96 04/12 1348 96 Nasal 2.0L Cannula 04/12 1321 96 122/84 04/12 1320 96 122/84 04/12 0854 83 136/72 04/12 0852 83 136/72 Intake & Output 04/13 1600 04/13 0800 04/13 0000 Intake Total 30 272 Output Total Balance 30 272 Intake, IV 10 Intake, Oral 30 262 Physical Exam General Appearance: alert, awake, comfortable Neck: normal inspection Respiratory: normal breath sounds Cardiovascular: regular rate/rhythm, irregularly irregular Current Medications: Current Medications Sig/Jonel Start time Last Medication Dose Route Stop Time Status Admin Albuterol Sulfate 3 ML Q4P PRN 04/10 1030 AC 04/10 INH 2015 Apixaban 5 MG BID 04/09 2200 AC 04/12 PO 210 Atorvastatin Calcium 10 MG 1700 04/10 1700 AC 04/12 PO 1642 Azithromycin 250 MG DAILY 04/11 1131 AC 04/12 PO 0854 Budesonide/ 2 PUF BID 04/11 1126 AC 04/12 Formoterol Fumarate INH 2101 Cholecalciferol 1,000 IU DAILY 04/10 1000 AC 04/12 PO 0854 Diclofenac Sodium 1 JC 4 TIMES/DAY 04/11 1000 AC 04/12 TOP 2101 Diltiazem HCl 60 MG Q8 04/10 1615 AC 04/13 PO 0508 Insulin Aspart 0 TIDAC 04/10 0800 AC 04/11 SC 1206 Levothyroxine Sodium 0.1 MG DAILY AC 04/11 0700 AC 04/13 PO 0508 Metoprolol Tartrate 12.5 MG BID 04/12 0130 AC 04/12 PO 2101 Ramelteon 8 MG QPM 04/11 2200 AC 04/12 PO 210
[2017-04-13] MEDS ORDERED: SYNTHROID88 MCG PO (08:36)
--- NOTE | 2017-04-13 09:10 | PN- Housestaff ---
Naomi VENCES,[facility] 04/13/17 0858: Subjective Follow-up For: Atrial fibrillation with rapid ventricular response Subjective: Patient was seen and examined this morning, vitals stable, continue in A. Fib with controlled rate. Patient reported improvement of SOB and coug. Pt is for discharge today. Review of Systems Constitutional: Reports: see HPI. Objective Last 24 Hrs of Vital Signs/I&O Vital Signs Date Time Temp Pulse Resp B/P B/P Pulse O2 O2 Flow FiO2 Mean Ox Delivery Rate 04/13 0508 68 110/62 04/13 0000 Nasal 2.0L Cannula 04/12 2351 98.1 71 20 110/54 94 04/12 2101 94 110/54 04/12 2101 94 110/54 04/12 1729 98 Nasal 2.0L Cannula 04/12 1658 98.0 84 18 112/60 96 04/12 1348 96 Nasal 2.0L Cannula 04/12 1321 96 122/84 04/12 1320 96 122/84 Intake & Output 04/13 1600 04/13 0800 04/13 0000 Intake Total 30 272 Output Total Balance 30 272 Intake, IV 10 Intake, Oral 30 262 Physical Exam General Appearance: Alert, Oriented X3, Cooperative, No Acute Distress Skin: No Rashes Skin Temp/Moisture Exam: Warm/Dry HEENT: Atraumatic, PERRLA, EOMI, Mucous Membr. moist/pink Neck: Supple Cardiovascular: Normal S1, Normal S2, No Murmurs, irregular irregular Lungs: Clear to Auscultation, Normal Air Movement Abdomen: Normal Bowel Sounds, Soft, No Tenderness Neurological: Normal Speech, paraplagic Extremities: No Clubbing, No Cyanosis, No Edema, Normal Pulses Assessment/Plan Assessment: Ms. Boston is 81 -year-old female with past medical history significant for spinal cord injury/trauma (paraplegia x 15 years), DM2, CAD (s/p angioplasty/stent, h/o [place]), paroxysmal afib (on Eliquis), s/p CVA, CHF, COPD (on chronic 2L oxygen), lung ca (s/p RUL resection), h/o colon ca (s/p sigmoid resection), h/o UTI's ( pseudomonas) who presented to ED as a referral from Dr. Langley's office for rapid ventricular response with atrial fibrillation. Impression/Plan: #Atrial Fibrillation with RVR -Patient continued to be on atrial fibrillation, heart rate improved to 90s -Continue oral Cardizem by mouth 60 3 times a day -Troponin I negative -Continue Eliquis -ECHO CONCLUSIONS 1. Normal EF of 60%. 2. Mild left ventricular hypertrophy. 3. Moderate mitral regurgitation. 4. Mild tricuspid reurgitation. 5. Mild aortic regurgitation. 6. Trace pulmonic regurgitation. #shortness of breath Initial thoughs was it could be as a result of A. Fib with rapid ventricular response however after controlling the rate patient continued to complain of shortness of breath and platypnea. Pulmonary consultation was obtained, thanks for recommendation, continue azithromycin for 5-7 days for bronchitis, Symbicort. Ptaient should be on rate control medication to prevent rapid ventricular response as she has tachycardia-induced cardiomyopathy. Pulmonary recommendation for Cardizem and switching lisinopril to losartan given Hx of cough. #Hypothyroid- on Levothyroxine. Endocrine consultation was obtained, thanks recommendation. TSH and free T4 are 1.53 and 2.32 Repeated TSH, free T4 are 0.476, 2.37. 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 Her thyroid tests are borderline high with TSH at lower normal and elevated T4 and T3. Suggestion to reduce levothyroxine to 88 mcg daily. Will repeat thyroid blood work including a free T4 and TSH in 1 month. # Facial Hirsutism Endocrinology recommended testosterone level which is 18.2 within normal, DSHEA still Pending #HTN- patient on Lisinopril/Amlodipine on hold. Continue Cardizem 60 mg 3 times a day. Continue metoprolol 12.5 mg twice a day #DM2- continue check glucoscans/sliding scale insulin-controlled #HL/CAD- on Atorvastatin. #Anxiety- Patient doesn't like the rozeram. She wants her lorazepam back as she has no fall risk given paraplagia. Will continue lorazepam in CMR. #Right shoulder pain- X-ray IMPRESSION: 1. Diffuse osteopenia. No acute fracture or dislocation. 2. Superior subluxation of the right humeral head relative to the glenoid, suggesting underlying chronic rotator cuff tear. 3. Posttreatment changes in the right chest related to prior right upper lobectomy. -Continue voltaren gel for pain Diet CDD3 Code DNR/DNI DVT prophylaxis Eliquis Patient is for discharge today. Problem List: 1. Atrial fibrillation Pain Ratin Pain Location: right shoulder Pain Goal: Pain 4 or less Pain Plan: see medication Tomorrow's Labs & Rationales: N/A Angela VENCES,Iona 04/13/17 1351: Attending MD Review Statement Attending Statement Attending MD Statement: examined this patient, discuss w/resident/PA/SAP SENIOR DEVELOPER, agreed w/resident/PA/SAP SENIOR DEVELOPER, reviewed EMR data (avail), discussed with nursing, discussed with case mgmt, amended to note Attending Assessment/Plan: Patient seen and examined. Resting comfortably and not in any acute distress. No issues overnight. She remains in atrial fibrillation however her rate is much better controlled. She is hemodynamically stable and asymptomatic. She offers no complaints today. She is medically stable to be discharged home today. Recommendations: -She is being discharged on metoprolol and Cardizem for rate control. -Losartan has been added for blood pressure control. -Patient is to continue Eliquis for anticoagulation therapy -Antithyroglobulin antibodies are markedly elevated suggestive of Gem thyroiditis. Levothyroxine dose has been decreased to 88 mcg per recommendations of the endocrinology service. She is to follow for repeat thyroid function tests in 1 month. -She is medically stable to be discharged today.
--- NOTE | 2017-04-13 09:29 | Discharge Summary ---
Visit Information Visit Dates Admission Date: 04/09/17 Discharge Date: 04/13/17 Hospital Course Course Attending Physician: Iona Miller MD Primary Care Physician: Westley Ibrahim MD Hospital Course: Ms. Boston is 81 year old female with past medical history significant for spinal cord injury/trauma (paraplegia x 15 years), DM2, CAD (s/p angioplasty/stent, h/o [place]), paroxysmal afib (on Eliquis), s/p CVA, CHF, COPD (on chronic 2L oxygen), lung ca (s/p RUL resection), h/o colon ca (s/p sigmoid resection), h/o UTI's ( pseudomonas) who presented from outpatient Dr. Michael's office after was found to have atrial fibrillation with rapid ventricular response. On admission vital signs: VS: T 97.2, P 150, R 22, BP 134/76, PO 99% on 2L Physical Exam: HEENT: eyes- PERRLA, EOMI oleg- moist mucosa Neck: no JVD or bruits Chest: diminished breath sounds, ? minimal bibasilar crackles Cor: irreg, tachy, nl S1, S2, no murm appreciated Abd: BS+, soft, NT Ext: tr edema, pulses not palpable Neuro: alert & oriented x 3, LE paralysis c/w known paraplegia Labs: WBC 9.7, hemoglobin 11.6, hematocrit 35.7, troponin negative 1, Lactic acid 4.1 Patient was admitted to telemetry floor. Problem list #Atrial Fibrillation with RVR -Patient was started on IV Cardizem drip for rate control, switched to by mouth Cardizem 60 mg 3 times a day. Heart rate improved to 90s. Patient was continued on Eliquis for anticoagulation. Tropnin and EKG remained negative for acute changes. Echocardiogram was obtained. CONCLUSIONS 1. Normal EF of 60%. 2. Mild left ventricular hypertrophy. 3. Moderate mitral regurgitation. 4. Mild tricuspid reurgitation. 5. Mild aortic regurgitation. 6. Trace pulmonic regurgitation. Lisinopril was discontinued for recent onset of dry cough. Amlodipine was discontinued as well. Cardiology recommendation to discharge patient on Cardizem 60 mg 3 times a day, metoprolol 12.5 mg twice a day, losartan 25 mg daily and Elliqus was for anticoagulation. Patient will follow with cardiology after discharge. #shortness of breath Initial thoughs was it could be as a result of A. Fib with rapid ventricular response however after controlling the rate patient continued to complain of shortness of breath and platypnea (chronic). Pulmonary consultation was obtained, with recommendation to start azithromycin po 250 mg for 5-7 days for acute bronchitis, Symbicort. Ptaient should be on rate control medication to prevent rapid ventricular response as she has tachycardia-induced cardiomyopathy. #Hypothyroid on Levothyroxine 100 mcg. Endocrine consultation was obtained for dose adjustment. Initial TSH and free T4 are 1.53 and 2.32 Repeated TSH, free T4 are 0.476, 2.37. 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 Her thyroid tests are borderline TSH at lower normal and elevated T4 and T3. Suggestion to reduce levothyroxine to 88 mcg daily. Patient should follow up with asbestos wire finisher Dr. Pollard after discharge with recommendation to repeat thyroid blood work including a free T4 and TSH in 1 month. # Facial Hirsutism Endocrinology recommended testosterone level which is 18.2 within normal, DHEA is 19 WNL #HTN Patient was on Lisinopril, Amlodipine and metoprolol on admission. Lisinopril was discontinued for recent onset of dry cough and Amlodipine was discontinued for borderline BP. Patient was discharged on Cardizem 60 mg 3 times a day, metoprolol 12.5 mg twice a day and losartan 25 mg daily. #DM2 Patient was maintained on glucoscans/sliding scale insulin- BS remained controlled #HL/CAD- on Atorvastatin. #Anxiety- We continue on home medication lorazepam 0.5 mg every afternoon when necessary. Patient doesn't have risk of fall since she is paraplegic. #Right shoulder pain Patient reported right shoulder pain that was started in the last couple of weeks, she used to take lorazepam for this pain as an outpatient that was never investigated. She denied any history of fall or trauma X-ray was obtained that showed evidence of underlying severe chronic rotator cuff tear. Orthopedic surgeon Dr. Chano Leon MD was contacted for evaluation, he will see the patient as an out patient after discharge. Voltaren gel was prescribed for pain. Images X-ray right shoulder IMPRESSION: 1. Diffuse osteopenia. No acute fracture or dislocation. 2. Superior subluxation of the right humeral head relative to the glenoid, suggesting underlying chronic rotator cuff tear. 3. Posttreatment changes in the right chest related to prior right upper lobectomy. Chest x-ray IMPRESSION: 1. Patchy airspace opacity at the right lung base. 2. No pulmonary edema or dense consolidation. Echocardiogram CONCLUSIONS 1. Normal EF of 60%. 2. Mild left ventricular hypertrophy. 3. Moderate mitral regurgitation. 4. Mild tricuspid reurgitation. 5. Mild aortic regurgitation. 6. Trace pulmonic regurgitation. Diet CDD3 Code DNR/DNI DVT prophylaxis Eliquis Allergies: Coded Allergies: amlodipine (Severe, C/P 05/27/16) codeine (Severe, C/P 05/27/16) morphine (Severe, C/P 05/27/16) omeprazole (Severe, C/P 05/27/16) Disposition Summary Disposition Principal Diagnosis: Atrial fibrillation with rapid ventricular response Additional Diagnosis: Acute bronchitis Discharge Disposition: home or self care Discharge Instructions General Discharge Information Code Status: Do Not Resucitate/Intubat Patient's Diet: Diabetic diet Patient's Activity: As tolerated Follow-Up Instructions/Appts: -PLEASE FOLLOW UP WITH YOUR PRIMARY CARE PHYSICIAN AFTER DISCHARGE -PLEASE FOLLOW UP WITH DR. GARNER AFTER DISCHARGE -PLEASE FOLLOW UP WITH DR. MICHAEL AFTER DISCHARGE -PLEASE FOLLOW UP WITH DR. POLLARD FOR THYROID PROBLEM AFTER DISCHARGE -PLEASE TAKE MEDICATION INSTRUCTED -PLEASE GET A THYROID FUNCTION TEST NEXT MONTH 05/14/16--- case management was contacted to arrange for home visit for blood draw Medications at Discharge Discharge Medications: Stop taking the following medications: Levothyroxine Sodium (Levoxyl) 100 MCG TABLET ORAL DAILY BEFORE BREAKFAST Lisinopril (Zestril) 40 MG TABLET ORAL DAILY Amlodipine Besylate (Amlodipine Besylate) 5 MG TABLET ORAL DAILY Qty = 135 Continue taking these medications: Metformin HCl (Metformin HCl) 500 MG TABLET 1 Tablet ORAL DAILY Comments: NOT GIVEN Lorazepam (Ativan) 0.5 MG TABLET 1 Tablet ORAL Q6-8H as needed for ANXIETY Comments: NOT GIVEN Cholecalciferol (Vitamin D3) (Vitamin D) 2,000 UNIT CAPSULE 1 Capsule ORAL DAILY Comments: Last Taken: 04/13/17 Time: 0920 AM Apixaban (Eliquis) 5 MG TABLET 5 Milligram ORAL TWICE DAILY Qty = 60 Instructions: . Comments: Last Taken: 04/13/17 Time: 09:20 AM Atorvastatin Calcium (Atorvastatin Calcium) 10 MG TABLET 1 Tablet ORAL DAILY Comments: Last Taken: 04/12/17 Time: 440PM Start taking the following new medications: Metoprolol Tartrate (Metoprolol Tartrate) 25 MG TABLET 12.5 Tablet ORAL TWICE DAILY Qty = 60 No Refills Comments: Last Taken: 04/13/17 Time: 0920 AM Diltiazem HCl (Cardizem) 60 MG TABLET 60 Milligram ORAL THREE TIMES DAILY Qty = 120 No Refills Comments: Last Taken: 04/13/17 Time: 0500 AM Azithromycin (Azithromycin) 250 MG TABLET 1 Dose Pack ORAL DAILY Qty = 4 No Refills Comments: Last Taken: 04/13/17 Time: 0920 AM Budesonide/Formoterol Fumarate (Symbicort 160-4.5 Mcg Inhaler) 160 MCG-4.5 MCG/ ACTUATION HFA.AER.AD 2 Puff Inhale through mouth TWICE DAILY Qty = 1 No Refills Comments: Last Taken: 04/13/17 Time: 0920 AM Diclofenac Sodium (Voltaren) 1 % GEL..GRAM. 1 Gram On the skin 4 TIMES A DAY Qty = 1 No Refills Instructions: apply to affected area(s) Comments: Last Taken: 04/13/17 Time: 0920 AM Levothyroxine Sodium (Synthroid) 88 MCG TABLET 1 Tablet ORAL DAILY Qty = 30 No Refills Comments: Last Taken: 04/13/17 Time: 0500 AM Losartan Potassium (Cozaar) 25 MG TABLET 1 Tablet ORAL DAILY Qty = 30 No Refills Comments: Last Taken: 04/13/17 Time: 1210 PM Copies To: Edward VENCES,Chano H.; Alexandria VENCES,Westley Cazares; Atul VENCES,Peña Krishnamurthy; Shivam VENCES PHD, Padilla Cline Attending MD Review Statement Documenting Attending: Iona Miller MD Other Findings: Discharged in stable medical condition
[2017-04-13] MEDS ORDERED: COZAAR25 M1 PO (09:32)
--- NOTE | 2017-04-13 09:35 | PN- Pulmonary ---
Subjective HPI/Critical Care Issues: Looks better no sig complaints Objective Current Medications: Current Medications Sig/Jonel Start time Last Medication Dose Route Stop Time Status Admin Albuterol Sulfate 3 ML Q4P PRN 04/10 1030 AC 04/10 INH 2015 Apixaban 5 MG BID 04/09 2200 AC 04/13 PO 0919 Atorvastatin Calcium 10 MG 1700 04/10 1700 AC 04/12 PO 1642 Azithromycin 250 MG DAILY 04/11 1131 AC 04/13 PO 0919 Budesonide/ 2 PUF BID 04/11 1126 AC 04/13 Formoterol Fumarate INH 0920 Cholecalciferol 1,000 IU DAILY 04/10 1000 AC 04/13 PO 0919 Diclofenac Sodium 1 CJ 4 TIMES/DAY 04/11 1000 AC 04/13 TOP 0920 Diltiazem HCl 60 MG Q8 04/10 1615 AC 04/13 PO 0508 Insulin Aspart 0 TIDAC 04/10 0800 AC 04/11 SC 1206 Levothyroxine Sodium 0.1 MG DAILY AC 04/11 0700 AC 04/13 PO 0508 Metoprolol Tartrate 12.5 MG BID 04/12 0130 AC 04/13 PO 0919 Ramelteon 8 MG QPM 04/11 2200 AC 04/12 PO 2101 Vital Signs & I&O Last 24 Hrs of Vitals and I&O: Vital Signs Date Time Temp Pulse Resp B/P B/P Pulse O2 O2 Flow FiO2 Mean Ox Delivery Rate 04/13 09 68 110/62 04/13 0902 99 Nasal 2.0L Cannula 04/13 0508 68 110/62 04/13 0000 Nasal 2.0L Cannula 04/12 2351 98.1 71 20 110/54 94 04/12 210 94 110/54 04/12 210 94 11054 04/12 1729 98 Nasal 2.0L Cannula 04/12 1658 98.0 84 18 112/60 96 04/12 1348 96 Nasal 2.0L Cannula 04/12 1321 96 122/84 04/12 1320 96 122/84 Intake & Output 04/13 1600 04/13 0800 04/13 0000 Intake Total 30 272 Output Total Balance 30 272 Intake, IV 10 Intake, Oral 30 262 Laboratory Tests 04/12 04/12 0644 0600 Chemistry Sodium (137 - 145 mmol/L) 139 Potassium (3.5 - 5.1 mmol/L) 5.1 Chloride (98 - 107 mmol/L) 105 Carbon Dioxide (22 - 30 mmol/L) 22 Anion Gap (5 - 16) 11 BUN (7 - 17 mg/dL) 25 H Creatinine (0.5 - 1.0 mg/dL) 1.0 Estimated GFR (>60 ml/min) 53 L BUN/Creatinine Ratio (7 - 25 %) 25.0 Vitamin B12 (239 - 931 pg/mL) 450 TSH (0.270 - 4.200 uIU/mL) 0.476 Free T4 (0.85 - 1.93 ng/dL) 2.37 H Total T3 (0.97 - 1.69 ng/mL) 0.80 L Total Testosterone (5.71 - 77.0 ng/dL) 18.2 DHEA Sulfate Interp Pending Hematology CBC w Diff NO MAN DIFF REQ WBC (4.8 - 10.8 /CUMM) 6.6 RBC (4.20 - 5.40 /CUMM) 3.03 L Hgb (12.0 - 16.0 G/DL) 9.1 L Hct (37 - 47 %) 27.7 L MCV (81.0 - 99.0 FL) 91.3 MCH (27.0 - 31.0 PG) 30.1 RDW (11.5 - 14.5 %) 15.1 H Plt Count (130 - 400 /CUMM) 447 H MPV (7.4 - 10.4 FL) 7.7 Gran % (42.2 - 75.2 %) 62.6 Lymphocytes % (20.5 - 51.1 %) 23.9 Monocytes % (1.7 - 9.3 %) 7.7 Eosinophils % (0 - 5 %) 4.8 Basophils % (0.0 - 2.0 %) 1.0 Absolute Granulocytes (1.4 - 6.5 /CUMM) 4.1 Absolute Lymphocytes (1.2 - 3.4 /CUMM) 1.6 Absolute Monocytes (0.10 - 0.60 /CUMM) 0.5 Absolute Eosinophils (0.0 - 0.7 /CUMM) 0.3 Absolute Basophils (0.0 - 0.2 /CUMM) 0.1 PUBS MCHC (33.0 - 37.0 G/DL) 33.0 Immunology Thyroglobulin Antibody (< 61 U/mL) > 500 H Thyroid Peroxidase Ab (< 61 U/mL) 28 Impression/Plan Impression/Plan Impression/Plan: General: WD/overweight female in mild distress; alert and oriented x 3 HEETN: NC/AT, PERRL, EOMI Neck: no JVD, no carotid bruit Heart: tachycardic and irregular Lungs: decreased breath sounds bilaterally without crackles Abdomen: soft, obese, NT, +ve bowel sounds Extremities: no edema Neuro: bilateral lower extremity paralysis 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 now presumed cured, hypertension, paroxysmal atrial fibrillation was on amiodarone (which has been stopped due to presumed toxicity before, however pt was not converted to sinus rhythm with this )and anticoagulation, previous tachycardia-induced acute pulmonary edema, drug-eluting stent to the RCA in May 2014, paraplegia, nosebleeds, chronic anemia with previous negative GI workup, recurrent bronchitis with mild interstitial lung disease, moderate obstructive pulmonary disease as well now comes in with * Resolved Rapid afib with shortness of breath with tachy cardia induced pulm edema * Lower lobe infiltrate prob due to atelectasis with underlying chronic ild, no active bacterial pna * Chronic anemia * No significant evidence suggestive of acute COPD exacerbation or ILD exacerbation * Paroxysmal atrial fibrillation, needs rate control med (seems to be off dilt) * Previous PCI with stent, * 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 * Pulmonary hypertension multifactorial * Chronic small airway disease, mild ILD on top of her mod COPD * Chronic paraplegia * Platypnea with no evidence of any shunt with previous work up for ASD or any shunt physiology neg, and no evidence of decompensated liver disease (is not short of breath while she sits in her wheel chair but cannot sit up in bed) * Chronic stable ischemic heart disease with stent as noted * Previous lung ca with no sig recurrence * Hypothryoid on supp may have mild med induced hyperthyroidism * Chronic cough on lisinopril which prob could also cause the cough REC Start azithro for five to seven days Symbicort ( can dc with this aswell) REsume dilt at her previous dose and increase dose if she tolerates (she may have tachy mateo aswell and watch heart rate) Ok with low dose metoprolol Needs ARB instead of ACI if she needs it in the future No need for systemic steroids COnt oxygen and wean off if needed ok to dc
[2017-04-13 13:27] VITALS: BP 122/80
== END 2017-04-13 13:55 | DRG 309 ==
LOC: ERH 14:03 → 1NO 16:22 → ERHI 16:22 → ENRESERV 04-10 01:38 → 1NO 04-10 01:54 → ENTRNSPT 04-13 13:30 → EDTRNSPT 04-13 13:43 → EDTRNSPTSTS 04-13 13:43 → CMPTRNSPT 04-13 13:53 → 1NO 04-13 13:55
PROVIDERS: Emergency Medicine; Student in an Organized Health Care Education/Training Program
DX: I48.0 Paroxysmal atrial fibrillation (principal); G82.20 Paraplegia, unspecified; J84.9 Interstitial pulmonary disease, unspecified; E87.2 Acidosis; I50.9 Heart failure, unspecified; I11.0 Hypertensive heart disease with heart failure; I27.29 Other secondary pulmonary hypertension; E11.9 Type 2 diabetes mellitus without complications; D64.9 Anemia, unspecified; Z99.81 Dependence on supplemental oxygen; Z79.84 Long term (current) use of oral hypoglycemic drugs; I25.10 Atherosclerotic heart disease of native coronary artery without angina pectoris; Z95.5 Presence of coronary angioplasty implant and graft; Z86.73 Personal history of transient ischemic attack (TIA), and cerebral infarction without residual deficits; J44.9 Chronic obstructive pulmonary disease, unspecified; Z85.038 Personal history of other malignant neoplasm of large intestine; Z85.118 Personal history of other malignant neoplasm of bronchus and lung; I25.2 Old myocardial infarction; E03.9 Hypothyroidism, unspecified; Z87.891 Personal history of nicotine dependence; E73.9 Lactose intolerance, unspecified; M54.9 Dorsalgia, unspecified; G89.29 Other chronic pain; M19.90 Unspecified osteoarthritis, unspecified site; R32 Unspecified urinary incontinence; I34.0 Nonrheumatic mitral (valve) insufficiency; I16.0 Hypertensive urgency; I35.1 Nonrheumatic aortic (valve) insufficiency; I37.1 Nonrheumatic pulmonary valve insufficiency; I42.8 Other cardiomyopathies; L68.0 Hirsutism; Z66 Do not resuscitate; F41.9 Anxiety disorder, unspecified; M85.811 Other specified disorders of bone density and structure, right shoulder; M75.101 Unspecified rotator cuff tear or rupture of right shoulder, not specified as traumatic
CPT/HCPCS: 1NSP; ERO; 36415; 71045; 73030-RT; 82436; 84403; 84481; 86376; 86800; 93005; 93010; 93306; J0456; J3490; J7040

== ENCOUNTER 2017-04-18 19:37 | Inpatient (IN) | payer OTHER, MEDICARE ==
[~2017-04-18] VITALS: Ht 160 cm; Wt 61.3 kg
[~2017-04-18 19:37] MED LIST changes: +ATORVASTATIN CA10 M1 PO; +AZITHROMYCIN250 M1 PO; +CARDIZEM60 M1 PO; +COZAAR25 M1 PO; +METOPROLOL TART25 M1 PO; +ROZEREM8 M1 PO; +SYMBICORT 16010.2 GM INH; +SYNTHROID88 MCG PO; +VOLTAREN100 GM TOP
--- NOTE | 2017-04-18 19:42 | ED DYSPNEA/ASTHMA COMPLAINT ---
History of Present Illness General Chief Complaint: Dyspnea (COPD, CHF, Other) Stated Complaint: BIBA SOB Source: patient, family, old records, EMS Exam Limitations: clinical condition Vital Signs & Intake/Output Vital Signs & Intake/Output Vital Signs Date Time Temp Pulse Resp B/P B/P Pulse O2 O2 Flow FiO2 Mean Ox Delivery Rate 04/19 0042 101 20 123/67 98 Venti Mask 30% 04/186 110 144/70 04/18 2212 99.7 115 24 141/66 96 Part ReBreather 04/18 2054 Part ReBreather 04/18 2048 140 137/71 04/18 2044 99.3 140 26 135/71 94 Part ReBreather 04/18 1944 98.7 132 16 146/96 93 Nasal 2.0L Cannula ED Intake and Output 04/19 0000 04/18 1200 Intake Total Output Total Balance Patient 142 lb Weight Weight Reported by Patient Measurement Method Allergies Coded Allergies: amlodipine (Severe, C/P 05/27/16) codeine (Severe, C/P 05/27/16) morphine (Severe, C/P 05/27/16) omeprazole (Severe, C/P 05/27/16) Reconcile Medications Apixaban (Eliquis) 5 MG TABLET 5 MG PO BID afib . Atorvastatin Calcium 10 MG TABLET 1 TAB PO DAILY CHOLESTEROL (Reported) Budesonide/Formoterol Fumarate (Symbicort 160-4.5 Mcg Inhaler) 160 MCG-4.5 MCG/ ACTUATION HFA.AER.AD 2 PUF INH BID copd Cholecalciferol (Vitamin D3) (Vitamin D) 2,000 UNIT CAPSULE 1 CAP PO DAILY SUPPLEMENT (Reported) Diclofenac Sodium (Voltaren) 1 % GEL..GRAM. 1 GM TOP 4 TIMES/DAY Shoulder pain apply to affected area(s) Diltiazem HCl (Cardizem) 60 MG TABLET 60 MG PO TID A. fib Levothyroxine Sodium (Synthroid) 88 MCG TABLET 1 TAB PO DAILY THYROID PROBLEMS Lorazepam (Ativan) 0.5 MG TABLET 1 TAB PO Q6-8H PRN ANXIETY (Reported) Losartan Potassium (Cozaar) 25 MG TABLET 1 TAB PO DAILY blood pressure control Metformin HCl 500 MG TABLET 1 TAB PO DAILY DM (Reported) Metoprolol Tartrate 25 MG TABLET 12.5 TAB PO BID HIGH BLOOD PRESSURE Triage Nurses Notes Reviewed? yes Onset: Abrupt Duration: 2 HRS Timing: single episode today Severity: moderate, severe HPI: This is an 81-year-old female with history of A. fib on Cardizem and Eliquis who presents by EMS from home for chief complaint of sudden onset of rest of her distress this evening around 5:00. She was just discharged from the hospital approximately 5 days ago was admitted for rapid A. fib. She is due for her evening meds Eliquis and diltiazem as well as atorvastatin. Daughter states for the last 2 days she is not feeling so great. Appetite has been diminished. She was found in the field to be hypoxic, tachypneic with a blood pressure 200/100. She was given some lingual nitroglycerin glycerin sprays as well as an inch of nitroglycerin ointment. Oxygenation improved. Blood pressure improved. Patient denies any chest pain. Past History Travel History Traveled to [place] past 21 day No Medical History Any Pertinent Medical History? see below for history Neurological: paraplegia status post spine fx/fall intention tremor EENT: epistaxis Cardiovascular: AFIB (PAF), CAD (s/p stent to RCA vs PTCA), CHF, hypertension, hyperlipidemia, myocardial infarction Respiratory: COPD, interstitial lung disease, LUNG CA RUL LOBECTOMY O2 DEPENDENT 2-3L Gastrointestinal: lactose intolerance, [id number], SIGMOID COLECTOMY 02/13 colonoscopy fair prep - tics but no polyps 02/13- egd gastritis DIVERTICULOSIS COLI Hepatic: NONE Renal: urinary incontinence Musculoskeletal: chronic back pain (post fall), degen joint disease, BROKEN BACK 15 YEARS AGO UNABLE TO BEAR WEIGHT Psychiatric: anxiety Endocrine: diabetes, hypothyroidism Blood Disorders: NONE (chronic), anemia Cancer(s): lung cancer (s/p RUL lobectomy SC Ca), AdenoCa in situ- sigmoid resection 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 , Age 70. FHx: stomach cancer FATHER ("some type of Ca"- not colon Ca). , Age 63. FH: cancer BROTHER FH: prostate cancer Hx Contributory? No Review of Systems Review of Systems Constitutional: Denies: chills, fever. EENTM: Reports: no symptoms. Respiratory: Reports: short of breath. Denies: sputum production. Cardiovascular: Denies: chest pain. GI: Reports: no symptoms. Genitourinary: Reports: no symptoms. Musculoskeletal: Reports: no symptoms. Skin: Reports: no symptoms. Neurological/Psychological: Reports: anxiety. Hematologic/Endocrine: Denies: bruising, bleeding, polyuria, polydipsia. Immunologic/Allergic: Reports: no symptoms. All Other Systems: Reviewed and Negative Physical Exam Physical Exam General Appearance: well developed/nourished, alert, awake, anxious, mild distress, moderate distress Head: atraumatic, normal appearance Eyes: Bilateral: EOMI. Ears, Nose, Throat: normal pharynx, hearing grossly normal Neck: normal inspection, supple, full range of motion Respiratory: crackles (AT BASES), respiratory distress Peripheral Pulses: 2+ radial (R), 2+ radial (L) Gastrointestinal: normal bowel sounds, soft, non-tender Extremities: normal inspection, normal range of motion Neurologic/Psych: awake, alert, oriented x 3 Skin: pallor Core Measures ACS in differential dx? Yes CVA/TIA Diagnosis No Sepsis Present: No Sepsis Focused Exam Completed? No Progress Differential Diagnosis: CHF, pulmonary embolism, pneumonia, RAPID AFIB Plan of Care: Orders Procedure Date/time Status Consistent Carbohydrate 3 04/19 B Active TROPONIN LEVEL 04/19 0800 Active EKG 04/19 0800 Active CBC WITHOUT DIFFERENTIAL 04/19 0600 Active BASIC ELECTROLYTES PLUS BUN&CR 04/19 0600 Active TROPONIN LEVEL 04/19 0200 Active EKG 04/19 0200 Active LOWER RESPIRATORY CULTURE 04/19 0023 Active ARTERIAL BLOOD GAS (GEN) 04/19 0015 Active TRC EVALUATION (GEN) 04/18 2245 Active Pathway - chart 04/18 224 Active House Staff 04/18 224 Active Patient Data 04/18 224 Active Code Status 04/18 224 Active LACTIC ACID 04/18 224 Complete Patient Data 04/18 2136 Active ED Holding Orders 04/18 2121 Active Admit to inpatient 04/18 2121 Active Vital Signs 04/18 2121 Active CULTURE,URINE 04/18 2047 Active URINALYSIS 04/18 2047 Complete Telemetry/Net Trainer 04/18 1940 Active RAPID VIRAL INFLUENZA A 04/18 1940 Complete BLOOD CULTURE 04/18 1940 Active TROPONIN LEVEL 04/18 1940 Complete PARTIAL THROMBOPLASTIN TIME 04/18 194 Complete PROTHROMBIN TIME 04/18 1940 Complete LACTIC ACID 04/18 1940 Complete COMPREHENSIVE METABOLIC PANEL 04/18 1940 Complete CBC WITHOUT DIFFERENTIAL 04/18 1940 Complete B-TYPE NATRIURETIC PEP (BNP) 04/18 1940 Complete EKG 04/18 193 Active OXYGEN SETUP (GEN) 04/18 UNK Complete VTE Mechanical Prophylaxis 04/18 UNK Active Vital Signs 04/18 UNK Active Telemetry/Net Trainer 04/18 UNK Active Intake & Output 04/18 UNK Active FingerStick- Glucose 04/18 UNK Active Current Medications Sig/Jonel Start time Last Medication Dose Stop Time Status Admin Atorvastatin Calcium 10 MG 1700 04/19 1700 AC (Lipitor) Apixaban 5 MG BID 04/19 1000 AC (Eliquis) Azithromycin 500 MG DAILY 04/19 1000 AC (Zithromax) Sodium Chloride 250 ML (Normal Saline 0.9%) Ceftriaxone Sodium 1,000 MG DAILY 04/19 1000 AC (Rocephin) Enoxaparin Sodium 40 MG DAILY 04/19 1000 CAN (Lovenox) Losartan Potassium 25 MG DAILY 04/19 1000 AC (Cozaar) Metoprolol Tartrate 3.125 MG BID 04/19 1000 AC (Lopressor) Insulin Aspart 0 TIDAC 04/19 0800 AC (NovoLOG) Levothyroxine Sodium 0.088 MG DAILY AC 04/19 0700 AC (Synthroid) Lorazepam 0.5 MG Q6P PRN 04/18 2330 AC (Ativan) 04/25 2329 Acetaminophen 650 MG Q6P PRN 04/18 2245 AC (Tylenol) Ibuprofen 600 MG Q6P PRN 04/18 224 AC (Motrin) Ketorolac 15 MG Q12 PRN 04/18 2245 AC Tromethamine (Toradol) Diltiazem HCl 125 MG Q12H 04/18 2044 AC 04/18 (Cardizem DRIP) 221 Sodium Chloride 100 ML (Normal Saline 0.9%) Laboratory Tests 04/18/17 2255: Lactic Acid 1.4 04/18/172100: Urinalysis LIGHT H, Urine Color YEL, Urine Clarity TURBD H, Urine pH 6.0, Ur Specific Hooper 1.025, Urine Protein 100 H, Urine Ketones NEG, Urine Nitrite POS H, Urine Bilirubin NEG, Urine Urobilinogen 0.2, Ur Leukocyte Esterase LARGE H, Ur Microscopic SEDIMENT EXAMINED, Urine RBC 5-10 H, Urine WBC PACKD H, Ur Epithelial Cells MOD H, Urine Bacteria PACKD H, Urine Mucus FEW, Urine Hemoglobin LARGE H, Urine Glucose NEG 04/18/172024: Anion Gap 16, Estimated GFR > 60, BUN/Creatinine Ratio 20.0, Glucose 219 H, Lactic Acid 2.5 H, Calcium 9.4, Total Bilirubin 0.6, AST 22, ALT 25, Alkaline Phosphatase 110, Troponin I 0.03, Mec-B-Nrmuvibejmo Pept 9620 H, Total Protein 7.6, Albumin 3.9, Globulin 3.7, Albumin/Globulin Ratio 1.1, PT 18.4 H, INR 1.76 H, APTT 33, CBC w Diff NO MAN DIFF REQ, RBC 3.69 L, MCV 91.4, MCH 29.4, RDW 15.0 H, MPV 7.8, Gran % 82.1 H, Lymphocytes % 12.7 L, Monocytes % 3.7, Eosinophils % 1.1, Basophils % 0.4, Absolute Granulocytes 9.0 H, Absolute Lymphocytes 1.4, Absolute Monocytes 0.4, Absolute Eosinophils 0.1, Absolute Basophils 0, PUBS MCHC 32.2 L Microbiology 04/19 002 LOWER RESP: Respiratory Culture - ORD 04/19 22 LOWER RESP: Gram Stain - ORD 04/18 2100 URINE ROUT: Urine Culture - RECD 04/18 2024 NASOPHARYN: Influenza Virus A & B Rapid Smear - COMP 04/18 2024 BLOOD: Blood Culture - RECD 04/18 1940 BLOOD: Blood Culture - CAN Cancelled: Quantity not sufficient for Aerobic blood culture bottle. 9:12 PM Much improved work of breathing on Ventimask. Chest x-ray consistent with CHF, developing infiltrate. Elevated lactic however I will not fluid bolus her as patient with history of congestive failure. Awaiting troponin, will need to go to telemetry. 9:30 PM D/W DR MICHAEL WHO WILL CONSULT ON THE PATIETNT. Diagnostic Imaging: Viewed by Me: Radiology Read. Discussed w/RAD: Radiology Read. CXR Impression: PATIENT: VINCENT DRUMMOND PRESENT AGE: 81 PATIENT ACCOUNT NO: [id number] : 35 LOCATION: [facility] ORDERING PHYSICIAN: Ora Cortez MD SERVICE DATE: 04/18/17 EXAM TYPE: RAD - XRY-PORTABLE CHEST XRAY EXAMINATION: CHEST 1 VIEW CLINICAL INFORMATION: Respiratory distress. COMPARISON: 04/09/2017. TECHNIQUE: An AP view of the chest is provided. FINDINGS : The cardiac silhouette is stable. Posterior spinal fusion hardware is intact. There is a small right pleural effusion. There is mild interstitial prominence present throughout both lungs, slightly increased from prior exam. There is also patchy opacification within the right mid and lower lung zones. The osseous structures are stable. IMPRESSION: Mild interstitial prominence throughout both lungs likely indicative of mild vascular congestion. There is a change in opacification within the right mid and lower lung zones with a small right pleural effusion. Developing infection cannot be excluded. Recommendation is for a followup chest series to be obtained following treatment and/or resolution of symptoms to assure resolution of this appearance. DICTATED BY: Hill Reyes MD DATE/TIME DICTATED:04/18/172013 SHRIMP PEELER:ADAM DATE/TIME TRANSCRIBED:04/18/172013 CONFIDENTIAL, DO NOT COPY WITHOUT APPROPRIATE AUTHORIZATION. <Electronically signed in Other Vendor System> SIGNED BY: Hill Reyes MD 04/18/172017 Initial ED EKG: AFIB (RVR) Prior EKG: unchanged Rhythm Strip: atrial fibrillation (RVR) Departure Departure Time of Disposition: 2130 Disposition: STILL A PATIENT Condition: Stable Clinical Impression Primary Impression: Rapid atrial fibrillation Secondary Impressions: Lactic acidosis, Respiratory distress, UTI (urinary tract infection) Referrals: Westley Ibrahim MD (PCP/Family) Departure Forms: Customer Survey General Discharge Information Admission Note Spoke With: Fatmata Bolaños MD Documentation of Exam: Documentation of any treatments & extenuating circumstances including Concerns Regarding Discharge (functional status, medication knowledge or non-compliance, living conditions, etc.) that warrant an admission rather than observation: [ TELE MONITOR, CARDIZEM DRIP, SERIAL TROPONIN, F/U BLOOD CULTURES, REPEAT CXR FOR ? DEVELOPING INFILTRATE, MONITOR TEMP, CARDIOLOGY CONSULT DR MICHAEL] Critical Care Note Critical Care Note Critical Care Time: 30-74 min
--- NOTE | 2017-04-18 20:18 | RADIOLOGY REPORT ---
EXAMINATION: CHEST 1 VIEW CLINICAL INFORMATION: Respiratory distress. COMPARISON: 04/09/2017. TECHNIQUE: An AP view of the chest is provided. FINDINGS: The cardiac silhouette is stable. Posterior spinal fusion hardware is intact. There is a small right pleural effusion. There is mild interstitial prominence present throughout both lungs, slightly increased from prior exam. There is also patchy opacification within the right mid and lower lung zones. The osseous structures are stable. IMPRESSION: Mild interstitial prominence throughout both lungs likely indicative of mild vascular congestion. There is a change in opacification within the right mid and lower lung zones with a small right pleural effusion. Developing infection cannot be excluded. Recommendation is for a followup chest series to be obtained following treatment and/or resolution of symptoms to assure resolution of this appearance.
[2017-04-18 21:01] LABS: ABSOLUTE BASOPHIL COUNT 0 /CUMM (0.0-0.2); ABSOLUTE EOSINOPHIL COUNT 0.1 /CUMM (0.0-0.7); ABSOLUTE LYMPH COUNT 1.4 /CUMM (1.2-3.4); ABSOLUTE MONOCYTE COUNT 0.4 /CUMM (0.10-0.60); BASOPHIL % 0.4 % (0.0-2.0); EOSINOPHIL % 1.1 % (0-5); GRANULOCYTE % 82.1 % (42.2-75.2); MEAN CORPUSCULAR HGB 29.4 PG (27.0-31.0); MEAN CORPUSCULAR HGB CONC 32.2 G/DL (33.0-37.0); MEAN CORPUSCULAR VOLUME 91.4 FL (81.0-99.0); MEAN PLATELET VOLUME 7.8 FL (7.4-10.4); PLATELET COUNT 559 /CUMM (130-400); RED BLOOD CELL CT 3.69 /CUMM (4.20-5.40)
[2017-04-18 21:06] LABS: HEMATOCRIT 33.8 % (37-47)
[2017-04-18 21:08] LABS: PT 18.4 SEC (9.4-12.5); PTT 33 SEC (25-37)
--- NOTE | 2017-04-18 22:31 | History & Physical ---
Nanci VENCES,[facility] 04/18/17 2231: General Information and HPI MD Statement: I have seen and personally examined VINCENT DRUMMOND and documented this H&P. The patient is a 81 year old F who presented with a patient stated chief complaint of [shortness of breath]. Source of Information: patient Exam Limitations: no limitations History of Present Illness: Mr. Drummond this 72-year-old lady with extensive past medical history of A. fib, coronary artery disease status post stent to RCA versus PTCA and, CHF, hypertension, hyperlipidemia, COPD, lung cancer status post RUL lobectomy (on home oxygen), adenocarcinoma in this site, sigmoid colectomy in (2013) , diabetes, hypothyroidism, chronic anemia and interstitial lung disease presents with shortness of breath that started yesterday morning and and decreased appetite. She was recently discharged from [facility] on April 13 for atrial fibrillation with RVR and was also given Symbicort and azithromycin for bronchitis. States she felt better after discharge but did not feel up to May. Yesterday she started feeling short of breath all of a sudden, her oxygen was increased to 3 L by her daughter without any improvement. Reports dry cough and palpitations this afternoon and yesterday as well without any chest pain, lightheadedness/dizziness, syncope, sputum production, sick contacts, recent travel, headache, chills or fever. She was found to be tachypneic and hypertensive (200/100/)" to the hospital and given sublingual nitroglycerin spray and ointment, and oxygen with improvement in the ambulance. Allergies/Medications Allergies: Coded Allergies: amlodipine (Severe, C/P 05/27/16) codeine (Severe, C/P 05/27/16) morphine (Severe, C/P 05/27/16) omeprazole (Severe, C/P 05/27/16) Home Med list Apixaban (Eliquis) 5 MG TABLET 5 MG PO BID afib . Atorvastatin Calcium 10 MG TABLET 1 TAB PO DAILY CHOLESTEROL (Reported) Budesonide/Formoterol Fumarate (Symbicort 160-4.5 Mcg Inhaler) 160 MCG-4.5 MCG/ ACTUATION HFA.AER.AD 2 PUF INH BID copd Cholecalciferol (Vitamin D3) (Vitamin D) 2,000 UNIT CAPSULE 1 CAP PO DAILY SUPPLEMENT (Reported) Diclofenac Sodium (Voltaren) 1 % GEL..GRAM. 1 GM TOP 4 TIMES/DAY Shoulder pain apply to affected area(s) Diltiazem HCl (Cardizem) 60 MG TABLET 60 MG PO TID A. fib Levothyroxine Sodium (Synthroid) 88 MCG TABLET 1 TAB PO DAILY THYROID PROBLEMS Lorazepam (Ativan) 0.5 MG TABLET 1 TAB PO Q6-8H PRN ANXIETY (Reported) Losartan Potassium (Cozaar) 25 MG TABLET 1 TAB PO DAILY blood pressure control Metformin HCl 500 MG TABLET 1 TAB PO DAILY DM (Reported) Metoprolol Tartrate 25 MG TABLET 12.5 TAB PO BID HIGH BLOOD PRESSURE Past History Travel History Traveled to [place] past 21 day No Medical History Neurological: paraplegia status post spine fx/fall intention tremor EENT: epistaxis Cardiovascular: AFIB (PAF), CAD (s/p stent to RCA vs PTCA), CHF, hypertension, hyperlipidemia, myocardial infarction Respiratory: COPD, interstitial lung disease, LUNG CA RUL LOBECTOMY O2 DEPENDENT 2-3L Gastrointestinal: lactose intolerance, [id number], SIGMOID COLECTOMY 02/13 colonoscopy fair prep - tics but no polyps 02/13- egd gastritis DIVERTICULOSIS COLI Hepatic: NONE Renal: urinary incontinence Musculoskeletal: chronic back pain (post fall), degen joint disease, BROKEN BACK 15 YEARS AGO UNABLE TO BEAR WEIGHT Psychiatric: anxiety Endocrine: diabetes, hypothyroidism Blood Disorders: NONE (chronic), anemia Cancer(s): lung cancer (s/p RUL lobectomy SC Ca), AdenoCa in situ- sigmoid resection HANGER/Reproductive: TUBAL LIGATION History of MRSA: No History of VRE: No History of CDIFF: No Influenza Vaccine: 12/21/15 Surgical History Surgical History: appendectomy, cholecystectomy, cataract removal, tubal ligation, RUL resection back surgery sigmoid colectomy Sigmoid colectomy for adenoCa in situ Past Family/Social History Family History Relations & Conditions if any MOTHER (possibly gastric Ca). , Age 70. FHx: stomach cancer FATHER ("some type of Ca"- not colon Ca). , Age 63. FH: cancer BROTHER FH: prostate cancer Psychosocial History Who Do You Live With? child, SHE LIVES WITH HER DAUGHTER Services at Home: Nursing, Oxygen Primary Language: Sami Living Will? yes Power of Rn Family/HCP? yes Name of POA/HCP: Pt's son, Constantino Drummond Functional Ability ADLs Needs Assist: dressing, eating, toileting, bathing. Ambulation: non-ambulatory (W/C) IADLs Needs Assist: shopping, housework, finances, food prep, telephone, transportation, medication admin. Review of Systems Review of Systems Constitutional: Reports: no symptoms. EENTM: Reports: no symptoms. Cardiovascular: Reports: palpitations. Respiratory: Reports: short of breath. GI: Reports: no symptoms. Genitourinary: Reports: no symptoms. Musculoskeletal: Reports: no symptoms. Skin: Reports: no symptoms. Neurological/Psychological: Reports: no symptoms. Hematologic/Endocrine: Reports: no symptoms. Immunologic/Allergic: Reports: no symptoms. All Other Systems: Reviewed and Negative Exam & Diagnostic Data Last 24 Hrs of Vital Signs/I&O Vital Signs Date Time Temp Pulse Resp B/P B/P Pulse O2 O2 Flow FiO2 Mean Ox Delivery Rate 04/19 0042 101 20 123/67 98 Venti Mask 30% 04/18 2255 110 144/70 04/18 221 99.7 115 24 141/66 96 Part ReBreather 04/18 2054 Part ReBreather 04/18 2048 140 137/71 04/18 2044 99.3 140 26 135/71 94 Part ReBreather 04/18 1944 98.7 132 16 146/96 93 Nasal 2.0L Cannula Intake & Output 04/19 0800 04/19 0000 04/18 1600 Intake Total Output Total Balance Patient 142 lb Weight Weight Reported by Patient Measurement Method Assessment/Plan Assessment: Mr. Drummond this 72-year-old lady with extensive past medical history of A. fib, coronary artery disease status post stent to RCA versus PTCA and, CHF, hypertension, hyperlipidemia, COPD, lung cancer status post RUL lobectomy (on home oxygen), adenocarcinoma in this site, sigmoid colectomy in (2013) , diabetes, hypothyroidism, chronic anemia and interstitial lung disease presents with shortness of breath that started yesterday morning and and decreased appetite. A/P; 1. Atrial fibrillation with RVR; could be exacerbated by pneumonia. - Admit the patient to telemetry floor. - We'll start the patient on Cardizem drip and titrate according to heart rate - Cardiology consult - Repeat troponins and EKG to rule out ACS. - We'll give 1 dose of Lasix if PO2 drops down to less than 40. 2. Shortness of breath; could be pneumonia as the patient has a white blood cell count of 11 and chest x-ray shows change in opacification within the right mid and lower lung zones with a small right pleural effusion. Developing infection cannot be excluded. - nStart the patient on azithromycin and ceftriaxone. - Supplemental oxygen as needed - We will do ABGs if patient remains hypoxic - CT Chest without Contrast. - TRC nebs as needed - Follow blood and sputum cultures - Lactic acid trended down to 1.7 from 2.5. - Rapid flu test is negative. 3. History of diabetes - Stop oral hypoglycemic agent - Start the patient on insulin sliding scale and Accu-Cheks. 4. Chronic medical conditions; - Continue home medications. DVT prophylaxis; patient is on apixaban Patient is full code As Ranked By This Provider Problem List: 1. Lactic acidosis 2. COPD exacerbation Core Measures/Misc (12/17) Acute Coronary Syndrome ACS Diagnosis: No Congestive Heart Failure Congestive Heart Failure Diagnosis No Cerebrovascular Accident CVA/TIA Diagnosis: No VTE (View Protocol) VTE Risk Factors Age>40 No Mechanical VTE Prophylaxis d/t N/A MechProphylax Ordered No VTE Pharm Prophylaxis d/t NA PharmProphylax ordered Sepsis (View protocol) Sepsis Present: No Fatmata Bolñaos 04/19/17 0316: Attending MD Review Statement Attending Statement Attending MD Statement: examined this patient, discuss w/resident/PA/TOOLING SPECIALIST, agreed w/resident/PA/TOOLING SPECIALIST, reviewed EMR data (avail), reviewed images, amended to note Attending Assessment/Plan: CC: severe SOB PMH: Paraplegia secondary to spinal cord injury, DM, PAF, CAD S/P DC S/P stent RCA, S/P CVA, HFpEF, COPD on 2 L NC, ILD, lung cancer S/P RUL resection, history of colon cancer S/P sigmoid resection, Gem's thyroiditis Patient was brought in ER through EMS for acute worsening of shortness of breath occurred at 5 PM, patient was found to have A. fib at 140s when EMS arrived and her blood pressure was 200/100 patient was desaturating to 88% on 2 L nasal cannula at that time and her blood sugar was 287. Patient was recently in hospital from April 09 to April 13 for A. fib with RVR, was also treated for bronchitis with azithromycin, discharged on Cardizem, lisinopril was changed to losartan as while in hospital patient developed dry cough. Even after discharge her dry cough persisted, without sputum production, she had tactile fever at home but no actual values of the nipple, patient denies any chills at home. Her main concern was shortness of breath which persisted even after discharge and progressively worsened, she had extremely poor appetite and could not eat anything, no choking. she states that her son-in-law may be sick but he is "hypochondriac"and is sick if anybody is sick at home. She is not sure if he has influenza or pneumonia. Patient gets more short of breath sitting up which is chronic for her. Lately patient has been more incontinent and her daughter could barely catch any urine doing straight cath. Patient has stool incontinence, no worsening or diarrhea. Vitals: Tmax 99.7, pulse 140, RR 26, blood pressure 135/71, saturating 94% on partial rebreather on exam: A O 3, cooperative, mild respiratory distress, neck supple, JVD normal , no lymphadenopathy, mucosa dry, paraplegia, strength upper extremity intact, cranial nerves intact,, no dependent edema, no obvious skin rashes or inflammation, no pressure ulcers CVS: S1-S2, irregular. RS: Questionable coarse breathing right lower lobe. Abdomen: Soft, NT, ND, bowel sounds present. Labs: WBC 11.0, hemoglobin 10.9, hematocrit 33.8, platelet 559, MCV 91, RDW 15, neutrophils 82%, sodium 141, potassium 4.8, chloride 102, bicarbonate 24, BUN 18 , creatinine 0.9, glucose 219, calcium 9.4, lactate 2.5, LFT unremarkable, proBNP 9620 INR 1.76, UA positive for nitrate leukocyte esterase trace Rapid flu test negative CXR: Mild interstitial prominence throughout both lungs likely indicative of mild vascular congestion. There is a change in opacification within the right mid and lower lung zones with a small right pleural effusion. Developing infection cannot be excluded. Assessment and plan 81-year-old female with multiple comorbidities was brought in ER for sudden worsening of shortness of breath occurred this evening. When EMS arrived at the scene her blood pressure was elevated to 200/100, patient was desaturating and her heart rate was in 140s with A. fib. Patient was admitted from April 09 to April 13 for A. fib with RVR and started on diltiazem, she was also treated for bronchitis with azithromycin, her lisinopril was discontinued and she was started on losartan, Eliquis was continued. Patient states that even after discharge her cough continued, breathing was getting progressively worse, she could not eat anything because of poor appetite and because of difficulty breathing today her breathing was so severe that she had to call EMS. While in route patient's ECG has wide complex tachycardia, almost irregular but appears to be A. fib with aberrant conduction. Repeat ECG shows A. fib with multiple PVCs, left bundle branch block. Patient improved with partial nonrebreather. She has coarse respiratory sounds right middle lobe, no crackles or or wheezing. Heart rate was in 140s, patient was started on diltiazem drip heart rate controlled at 110s. Blood pressure is stable. Patient has mild leukocytosis with left shift, reviewed and compared her x-ray from previous hospitalization. Patient had very minimal infiltrates on the right lower and middle lobe which are more prominent now. But it is not clear, will get CT chest without contrast, continue antibiotics for community-acquired pneumonia, probably it might be the cause for precipitating RVR. Other causes like ACS should be ruled out. Patient' s platypnea has previously worked up. + A. fib with RVR + Acute on chronic respiratory failure with hypoxia Unclear etiology probably pneumonia with underlying ILD and COPD + Paraplegia secondary to spinal cord injury, DM, PAF, CAD S/P DC S/P stent RCA, S/P CVA, HF, COPD on 2 L NC, ILD, lung cancer S/P RUL resection, history of colon cancer S/P sigmoid resection - Admit to telemetry for RVR - Continuous telemetry monitoring - Serial troponin and EKGs - Continue diltiazem drip, titrate to keep heart rate around 110 - Continue by mouth Eliquis - IV ceftriaxone and azithromycin - ABG : If significantly hypoxic, 1 dose of IV Lasix 40 mg - CT scan chest without contrast - Cardiology consult in a.m. - Trend lactate - Continue sliding scale insulin, resume losartan from tomorrow morning, hold oral diltiazem for now, hold metformin, continue rest of her home medications - Check Mg, Po4 - DVT prophylaxis: Patient on Eliquis Андрей VENCES,Keshawn 04/19/17 0423: Resident Review Statement Resident Statement: examined this patient, discussed with general internist, agreed with general internist Other Findings: This is an 81-year-old female with considerably extensive past medical history including paraplegia status post spinal cord injury, diabetes, CAD status post drug-eluting stent placed in 2015, paroxysmal A. fib, CVA, CHF, COPD on 2 L, colon adenocarcinoma status post sigmoid resection, lung cancer status post right upper lobe resection, who comes in for chief complaint of shortness of breath. Notably, patient was seen about 5 days ago for new A. fib with RVR. She was discharged on April 13. Patient states that she felt better after discharge, however not back to her baseline. She became noticeably short of breath yesterday. Prior to recent hospitalization she required her O2 only intermittently. However, the last 2 days, she was using oxygen for longer periods of time, including overnight. Subsequently today, she increased her O2 to 3 L but was still short of breath. She stated she couldn't eat due to shortness of breath. During recent admission she was given a course of azithromycin and was discharged on Symbicort. She was noted to have a dry cough on lisinopril and was therefore switched to losartan. Patient states that she used her Symbicort without much improvement in her symptoms. She also states that her dry cough persists. She endorses shortness of breath, dry cough, palpitations, ear and jaw pain, but denies any chest pain, abdominal pain, nausea, vomiting, diarrhea, or headache. She endorses increased frequency of incontinence. She states that she 's been taking all her medications. In the field, EMS found patient to be hypoxic to 88% on 2 L O2 and in A. fib with rapid rate. Her blood pressure was supposedly 200/100. She was given nitroglycerin sublingual and paste. Vitals: 99.7, rate between 115 to 140, respiratory rate between 16 and 26, blood pressure 135/71 to 146/96, satting 93-96% on 3l Ventimask. Physical exam: HEENT: Pupils equal and reactive. EOMI Cardiovascular: heart sounds distant, Nml s1/s2; Skin: no erythema, rash or wounds present. Respiratory:Pt has diminished breath sounds with crackles. GI: BSX4, No tenderness on palpation. EXT: no edema ---- Assessment: This is an 82-year-old female past medical history significant for paraplegia status post spinal cord injury, DM, CAD status post drug-eluting stent, atrial fibrillation, CVA, CHF, COPD, osteoporosis thyroiditis, lung cancer status post resection right upper lobe, colonic adenocarcinoma status post sigmoid resection, who comes in with chief complaint of shortness of breath. In ED patient was found to have atrial fibrillation with rapid ventricular rate and hypoxic to 88% on 2L o2. SOB with Hypoxia: Pt has wbc 11 ( 6.6 on Apr 12), with cxr showing opacification in r. middle and lower lung zones in addition to mild vascular congestion. She also has lactic acid 2.5. Her SOB is likely multifactorial due to possible PNA, her CHF and her AFIB with RVR. She sounds crackly w/o wheezes. In ED she got ceftaz/vanco. We will switch her to Cef and Azithro. If no improvement then consider broad spec abx. * ceftriaxone and azithromycin * TRC * ABG * IV Lasix 40 x1 * BCX * Flu swab * Sputum cx Afib with RVR: Pt was started on Eliquis and Diltiazem during previous visit. EKG shows AFIB RVR with LBBB seen in previous ekg. QTC 529. EKG done in ambulance looks slightly different, more like afib with aberrant conduction?? * Hold PO Diltiazem * Start Cardizem drip * Continue Eliquis * Cardiology consult in AM * Trop/ekg Urinary incontinence: pt reports that she straight caths at home. Has been increasingly incontient recently however. * Straight cath protocol CAD: * Con't Atorvastatin * Con't Metoprolol HTN: * Con't Losartan Hypothyroid: * Con't Levothyroxine FC HH diet chem ppx
--- NOTE | 2017-04-19 03:18 | Admission Certification ---
Admission Certification Certification Statement - As attending physician, I certify that at the time of - admission, based on clinical presentation, severity of - symptoms, need for further diagnostic testing and - therapeutic interventions, and risk of adverse outcomes - without in-hospital treatment, in my clinical assessment, - this patient requires an acute hospital stay for a minimum - of two nights or longer. I have also considered psychsocial - factors such as support system, advanced age, financial - issues, cognitive issues, and failed out-patient treatments, - past re-admission history, safety of patient, and lack of - compliance as applicable. Specific rationale supporting this admission is: suspected pneumonia, A. fib with RVR
[2017-04-19 06:03] LABS: ABSOLUTE BASOPHIL COUNT 0.1 /CUMM (0.0-0.2); ABSOLUTE EOSINOPHIL COUNT 0.1 /CUMM (0.0-0.7); ABSOLUTE LYMPH COUNT 2.3 /CUMM (1.2-3.4); ABSOLUTE MONOCYTE COUNT 0.6 /CUMM (0.10-0.60); EOSINOPHIL % 1.1 % (0-5)
[2017-04-19 06:10] LABS: ABSOLUTE GRANULOCYTE CT 5.8 /CUMM (1.4-6.5); BASOPHIL % 0.7 % (0.0-2.0); GRANULOCYTE % 66.2 % (42.2-75.2); MEAN CORPUSCULAR HGB 29.3 PG (27.0-31.0); MEAN CORPUSCULAR HGB CONC 32.7 G/DL (33.0-37.0); MEAN CORPUSCULAR VOLUME 89.6 FL (81.0-99.0); MEAN PLATELET VOLUME 7.1 FL (7.4-10.4); PLATELET COUNT 467 /CUMM (130-400); RBC DISTRIBUTION WIDTH 14.7 % (11.5-14.5); RED BLOOD CELL CT 3.15 /CUMM (4.20-5.40); WHITE BLOOD CELL COUNT 8.8 /CUMM (4.8-10.8)
[2017-04-19 06:11] LABS: HEMATOCRIT 28.3 % (37-47)
--- NOTE | 2017-04-19 07:54 | PN- Housestaff ---
Katina Gerardo 04/19/17 0754: Subjective Follow-up For: Marilu diehl with RVR Urinary tract infection with bacteremia Acute on chronic respiratory failure Complaints: shortness of breath Subjective: Patient was seen and examined this morning. She was lying comfortably in bed but short of breath on Ventimask which was changed to nasal cannula oxygen later. She denied any palpitations, chest pain, fever, any urinary complaints. Review of Systems Constitutional: Reports: malaise, weakness. Denies: chills, diaphoresis. Cardiovascular: Denies: chest pain, edema. Respiratory: Reports: short of breath. Gastrointestinal: Denies: constipation, distention. Genitourinary: Denies: dysuria, frequency. Objective Last 24 Hrs of Vital Signs/I&O Vital Signs Date Time Temp Pulse Resp B/P B/P Pulse O2 O2 Flow FiO2 Mean Ox Delivery Rate 04/19 1258 99.0 82 22 136/89 99 Nasal 3.0L Cannula 04/19 1158 78 95/55 04/19 1122 98.9 78 22 96/53 100 Nasal 2.0L Cannula 04/19 1021 96.4 79 12 124/60 04/19 1021 96.4 80 12 124/60 04/19 0840 96.4 86 18 154/67 98 Venti Mask 30% 04/19 0813 96.4 86 18 154/67 98 Venti Mask 30% 04/19 0546 96.7 84 22 141/74 99 Venti Mask 30% 04/19 0042 101 20 123/67 98 Venti Mask 30% 04/18 2256 110 144/70 04/18 2213 99.7 115 24 141/66 96 Part ReBreather 04/18 2054 Part ReBreather 04/18 2048 140 137/71 04/18 2044 99.3 140 26 135/71 94 Part ReBreather 04/18 1944 98.7 132 16 146/96 93 Nasal 2.0L Cannula Intake & Output 04/19 1600 04/19 0800 04/19 0000 Intake Total 520 Output Total 1100 750 Balance -580 -750 Intake, Oral 520 Output, Urine 1100 750 Patient 142 lb Weight Weight Reported by Patient Measurement Method Physical Exam General Appearance: Alert, Oriented X3, Cooperative, Mild Distress Cardiovascular: irregularly irregular Lungs: slightly reduced air entry Abdomen: Soft, No Tenderness Current Medications: Current Medications Sig/Jonel Start time Last Medication Dose Route Stop Time Status Admin Acetaminophen 650 MG Q6P PRN 04/18 2245 AC PO Apixaban 5 MG BID 04/19 1000 AC 04/19 PO 1021 Apixaban 5 MG ONCE ONE 04/18 2045 DC 04/18 PO 04/18 2045 2140 Atorvastatin Calcium 10 MG 1700 04/19 1700 AC PO Atorvastatin Calcium 10 MG ONCE ONE 04/18 2045 DC 04/18 PO 04/18 2045 2140 Azithromycin 500 MG DAILY 04/19 1000 AC 04/19 Sodium Chloride 250 ML IV 1036 Ceftazidime 0 .STK-MED ONE 04/18 2110 DC .ROUTE Ceftazidime 1,000 MG ONCE ONE 04/18 2014 DC 04/18 IV 04/18 Ceftriaxone Sodium 1,000 MG DAILY 04/19 1000 AC 04/19 IV 1036 Diltiazem HCl 125 MG Q12H 04/18 204 AC 04/19 Sodium Chloride 100 ML IV 0937 Diltiazem HCl 0 .STK-MED ONE 04/18 2007 DC .ROUTE Diltiazem HCl 10 MG ONCE ONE 04/18 1999 DC 04/18 IV PUSH 04/18 Enoxaparin Sodium 40 MG DAILY 04/19 1000 CAN SC Furosemide 0 .STK-MED ONE 04/19 0447 DC IV Furosemide 40 MG ONCE ONE 04/19 0430 DC 04/19 IV 04/19 0431 0446 Ibuprofen 600 MG Q6P PRN 04/18 2245 AC PO Insulin Aspart 0 TIDAC 04/19 0800 AC SC Ketorolac 15 MG Q12 PRN 04/18 2245 AC Tromethamine IV Levothyroxine Sodium 0.088 MG DAILY AC 04/19 0700 AC 04/19 PO 0805 Lorazepam 0 .STK-MED ONE 04/19 1157 DC PO Lorazepam 0.5 MG Q6P PRN 04/18 2330 AC 04/19 PO 04/25 2329 1156 Losartan Potassium 25 MG DAILY 04/19 1000 AC 04/19 PO 1021 Metoprolol Tartrate 3.125 MG BID 04/19 1000 AC 04/19 PO 1021 Vancomycin HCl 1,000 MG DAILY 04/19 1345 AC Dextrose/Water 250 ML IV Vancomycin HCl 1,000 MG ONCE ONE 04/18 2014 DC 04/18 Sodium Chloride 250 ML IV 04/18 2113 2143 Last 24 Hrs of Lab/Twan Results Last 24 Hrs of Labs/Mics: Laboratory Tests 04/19/17 0553: Anion Gap 12, Estimated GFR > 60, BUN/Creatinine Ratio 22.5, TSH Pending, Free T4 Pending, CBC w Diff NO MAN DIFF REQ, RBC 3.15 L, MCV 89.6, MCH 29.3, RDW 14.7 H, MPV 7.1 L, Gran % 66.2, Lymphocytes % 25.7, Monocytes % 6.3, Eosinophils % 1.1, Basophils % 0.7, Absolute Granulocytes 5.8, Absolute Lymphocytes 2.3, Absolute Monocytes 0.6, Absolute Eosinophils 0.1, Absolute Basophils 0.1, PUBS MCHC 32.7 L 04/19/17216: Troponin I 0.08 04/18/172254: Lactic Acid 1.4 04/18/172100: Urinalysis LIGHT H, Urine Color YEL, Urine Clarity TURBD H, Urine pH 6.0, Ur Specific Amber 1.025, Urine Protein 100 H, Urine Ketones NEG, Urine Nitrite POS H, Urine Bilirubin NEG, Urine Urobilinogen 0.2, Ur Leukocyte Esterase LARGE H, Ur Microscopic SEDIMENT EXAMINED, Urine RBC 5-10 H, Urine WBC PACKD H, Ur Epithelial Cells MOD H, Urine Bacteria PACKD H, Urine Mucus FEW, Urine Hemoglobin LARGE H, Urine Glucose NEG 04/18/172024: Anion Gap 16, Estimated GFR > 60, BUN/Creatinine Ratio 20.0, Glucose 219 H, Lactic Acid 2.5 H, Calcium 9.4, Phosphorus 4.6 H, Magnesium 1.6, Total Bilirubin 0.6, AST 22, ALT 25, Alkaline Phosphatase 110, Troponin I 0.03, Pro-B- Natriuretic Pept 9620 H, Total Protein 7.6, Albumin 3.9, Globulin 3.7, Albumin/ Globulin Ratio 1.1, PT 18.4 H, INR 1.76 H, APTT 33, CBC w Diff NO MAN DIFF REQ , RBC 3.69 L, MCV 91.4, MCH 29.4, RDW 15.0 H, MPV 7.8, Gran % 82.1 H, Lymphocytes % 12.7 L, Monocytes % 3.7, Eosinophils % 1.1, Basophils % 0.4, Absolute Granulocytes 9.0 H, Absolute Lymphocytes 1.4, Absolute Monocytes 0.4, Absolute Eosinophils 0.1, Absolute Basophils 0, PUBS MCHC 32.2 L Microbiology 04/19 1413 BLOOD: Blood Culture - ORD 04/19 704 URINE ROUT: Urine Culture - RECD 04/19 002 LOWER RESP: Respiratory Culture - COLB 04/19 22 LOWER RESP: Gram Stain - COLB 04/18 2100 URINE ROUT: Urine Culture - RES GRAM NEGATIVE RODS 04/18 2024 NASOPHARYN: Influenza Virus A & B Rapid Smear - COMP 04/18 2024 BLOOD: Blood Culture - RES GRAM POSITIVE COCCI 04/18 1940 BLOOD: Blood Culture - CAN Cancelled: Quantity not sufficient for Aerobic blood culture bottle. Assessment/Plan Assessment: Patient is 72-year-old female with past medical history significant for atrial fibrillation on anticoagulation, coronary artery disease status post stent placement, history of congestive heart failure, hypertension, dyslipidemia , COPD on home oxygen, lung cancer status post lobectomy, diabetes, hypothyroidism, interstitial lung disease recently admitted at [facility] with atrial fibrillation with RVR/bronchitis came in with chief complaint of worsening shortness of breath and generalized weakness. Heart rate was found to be in 130s to 140s on admission and was started on Cardizem drip brings her heart rate around 80s to 90s. During her hospital stay we will address following problems Problem #1 atrial fibrillation with RVR Patient responded well to Cardizem drip and be titrated down and then switch it to oral Cardizem. We will continue Eliquis Currently we will request cardiology evaluation We will check TSH and free T4 problem #2 acute on chronic respiratory failure with underlying interstitial lung disease Supplemental oxygen to keep oxygen saturation more than 90% Pulmonology evaluation Patient was already been started on azithromycin and ceftriaxone and vancomycin was added one blood culture grew gram-positive cocci in clusters we will repeat blood cultures and will follow the sensitivities. Problem #3 urinary tract infection and bacteremia Patient was already been started on ceftriaxone. We will follow the blood cultures for sensitivity Her blood pressure currently is within normal range. We will check lactic acidosis. If at any point patient started dropping her blood pressure or if lactic acid came back positive we'll might consider treating her with IV fluids for presumptive sepsis. Of note her WBC count on admission was 11.0 which came down to 8.8 this morning. Problem #4 CAD status post stent placement We will continue her home medications Problem #5 history of Gem's thyroiditis We will continue her home medication. We will check TSH and free T4 Problem List: 1. Atrial fibrillation 2. Hypoxia 3. UTI (urinary tract infection) Pain Ratin Pain Location: Not applicable Pain Goal: Remain pain free Pain Plan: Tylenol Tomorrow's Labs & Rationales: cbc bep Angela VENCESFelishajigar 04/19/17 1351: Attending MD Review Statement Attending Statement Attending MD Statement: examined this patient, discuss w/resident/PA/LIVE AMMUNITION INSPECTOR, agreed w/resident/PA/LIVE AMMUNITION INSPECTOR, reviewed EMR data (avail), discussed with nursing, discussed with case mgmt, amended to note Attending Assessment/Plan: Patient seen and examined. Recently admitted to the hospital for atrial fibrillation with rapid ventricular response. At that time she complained of shortness of breath. Chest x-ray showed lower lobe infiltrate. She was evaluated by her ichthyologist and impression was that the infiltrate may be due to atelectasis with underlying chronic interstitial lung disease. X-ray showed no evidence of consolidation consistent with an active bacterial pneumonia. She was continued on bronchodilators and started empirically on azithromycin and steroids for bronchitis. She presented to the emergency room overnight with complaints of worsening shortness of breath. Was reported as been saturating 80% on 2 L of oxygen was then placed on Ventimask. When I evaluated her this morning she was saturating 100% on the Ventimask. She was placed back on 2 L of oxygen and continue to maintain saturation at 100%. Due to her rapid ventricular response she was placed on Cardizem infusion. When I limited patient he was on at 10 mg/h and heart rate was in the 70s still in atrial fibrillation. It was weaned down to 7.5 mg/h. Patient became borderline hypotensive with pressures in the 90s and the drip was reduced further to 5mg per hour. She continues to maintain a controlled ventricular response and blood pressure has improved. General appearance: Much in respiratory distress Heart: S1-S2 irregular Lungs: Good entry bilaterally, clear to auscultation Abdomen: Soft, nontender with normal bowel sounds Extremities: No pedal edema Skin: Intact with no rashes Only one set of blood culture was obtained and is currently growingGram-positive cocci in clusters. Urine culture is currently growing gram-negative rods. Problems: 1. Atrial fibrillation with rapid ventricular response. 2. Bacteremia 3. Urinary tract infection 4. Hypertensive urgency; now resolved 5. Dyspnea; query secondary to pneumonia. Plan: -Follow-up with the cardiology service. Patient may be transitioned off Cardizem infusion and restarted on her oral Cardizem. -Her rapid ventricular response may be secondary to underlying infection. -She has been started on empiric antibiotic therapy with IV Rocephin and azithromycin. A dose of vancomycin will be given as well. -Follow culture results. Obtain second set. Follow-up urine culture results. -Continue anticoagulant therapy with Eliquis. -Workup during the last admission was consistent with Gem thyroiditis. Her Synthroid dose was decreased to 18 mcg daily. Her TSH level was normal at the time her free T4 was elevated as well as thyroid peroxidase antibodies. Recommend repeating her TSH and free T4 levels to ensure that the free T4 is not trending upwards and contributing to her uncontrolled A. fib.
[2017-04-19 08:40] VITALS: BP 154/67
[2017-04-19 16:23] VITALS: BP 130/68
--- NOTE | 2017-04-19 16:32 | CT SCAN REPORT ---
EXAMINATION: CT CHEST WITHOUT CONTRAST CLINICAL INFORMATION: Shortness of breath. Infiltrates on chest x-ray. Pneumonia versus interstitial lung disease. History of right upper lobe lung cancer. COMPARISON: Chest x-ray dated 04/18/2017. CT scan of the chest dated 04/01/2016 and multiple prior scans of the chest dating back to 12/26/2013.. TECHNIQUE: Multidetector volumetric CT imaging of the chest was obtained noncontrast. Sagittal and coronal reformations were obtained. DLP: 180.85 mGy-cm. FINDINGS: LUNGS: The patient is status post right upper lobectomy with slight volume loss seen in the right hemithorax with elevation of the right hemidiaphragm and minimal shift of the mediastinum toward the right side. Postsurgical changes as seen in the right hilar region and periphery of the right lung. There are diffuse areas of mosaic attenuation seen throughout the lungs with patchy areas of air trapping seen, consistent with pulmonary emphysema. In the periphery of the lungs bilaterally, more prominent in the lower lobes, but also involving upper lobes, there is diffuse interlobular septal thickening and bandlike thickening seen. No honeycomb cyst formation is noted. Findings have progressed when compared to 04/01/2016. There are mild bronchiectatic changes with the central airways all diffusely thickened and mildly ectatic. Subpleural cysts are noted in the lingula. There is enlargement of the central pulmonary arteries, raising the suspicion of pulmonary arterial hypertension. Bilateral small pleural effusions are seen layering posteriorly all the way up to the lung apices, slightly larger on the left side than the right and new on the left side and larger on the right side when compared to 2016. Subjacent areas of dependent atelectasis are noted in both lower lobes. There are several scattered tiny calcific densities seen in the periphery of the lower lobes bilaterally, more numerous on the left side than the right. When compared to the prior exam, these findings have progressed slightly. LYMPHOVASCULAR STRUCTURES: Aortic and heart size normal. Severe atherosclerotic calcifications of the aorta, all 3 coronary arteries, and the great vessels. Prominent mitral annular calcifications is seen. Cardiac silhouette is mildly enlarged with four-chamber enlargement of the heart seen. No pericardial effusion. Multiple mediastinal lymph nodes are seen, largest of which is in the subcarinal region, measuring 1.2 cm in short axis as compared to 1.4 cm (04/01/2016), most consistent with reactive lymph nodes. No enlarging mediastinal, hilar or axillary adenopathy. THYROID GLAND: Not seen and either markedly atrophic or surgically absent. UPPER ABDOMEN: Again seen is ill-defined nodularity of the left adrenal gland, measuring approximately 1.3 x 1.4 cm (series 2, image 55) (with mean attenuation values of 11.9 Hounsfield units, consistent with a benign lipid rich adenoma. This mass had previously measured 1.1 x 1.2 cm. Post cholecystectomy eben are seen in the right upper quadrant. Small retrocardiac hiatal hernia is noted. Included portions of the solid organs in the upper abdomen otherwise unremarkable. BONES: Diffuse osteopenia with mild compression deformities in the upper thoracic spine (T3, T4 and T5), unchanged from 04/01/2016. Evidence of prior posterior spinal decompression and fusion from the T9 level down into the spine, not fully imaged. Prominent Schmorl's node is seen at the inferior endplate of T12. IMPRESSION: 1. Status post right upper lobectomy with no evidence of residual/recurrent mass at the bronchial stump. 2. Advanced emphysema with superimposed interstitial lung disease. Similar findings were noted previously. Compared to the prior exam, however, there is now also increased thickening of the interlobular septae with the progressive caudal gradient in the lungs. This finding in association with the increasing pleural effusions, the enlarged heart and the enlarged central vessels raises the suspicion of superimposed pulmonary edema. Close clinical correlation is requested. 3. Prominent mediastinal lymph nodes, most likely reactive. 4. Severe coronary artery calcifications. 5. 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 6. Status post cholecystectomy. 7. Small hiatal hernia. 8. Osteopenia with compression deformities at T3, T4 and T5, unchanged.
--- NOTE | 2017-04-19 18:44 | Cons- Pulmonary ---
General Information and HPI Consulting Request Date of Consult: 04/19/17 Requested By: med team History of Present Illness: Mr. Boston this 72-year-old lady with extensive past medical history of A. fib, coronary artery disease status post stent to RCA versus PTCA and, CHF, hypertension, hyperlipidemia, COPD, lung cancer status post RUL lobectomy (on home oxygen), adenocarcinoma in this site, sigmoid colectomy in (2013) , diabetes, hypothyroidism, chronic anemia and interstitial lung disease presents with shortness of breath that started yesterday morning and and decreased appetite. She was recently discharged from [facility] on April 13 for atrial fibrillation with RVR and was also given Symbicort and azithromycin for bronchitis. States she felt better after discharge but did not feel up to May. Yesterday she started feeling short of breath all of a sudden, her oxygen was increased to 3 L by her daughter without any improvement. Reports dry cough and palpitations this afternoon and yesterday as well without any chest pain, lightheadedness/dizziness, syncope, sputum production, sick contacts, recent travel, headache, chills or fever. She was found to be tachypneic and hypertensive (200/100/)" to the hospital and given sublingual nitroglycerin spray and ointment, and oxygen with improvement in the ambulance. when i saw her she was back to baseline stable Allergies/Medications Allergies: Coded Allergies: amlodipine (Severe, C/P 05/27/16) codeine (Severe, C/P 05/27/16) morphine (Severe, C/P 05/27/16) omeprazole (Severe, C/P 05/27/16) Home Med List: Apixaban (Eliquis) 5 MG TABLET 5 MG PO BID afib . Atorvastatin Calcium 10 MG TABLET 1 TAB PO DAILY CHOLESTEROL (Reported) Budesonide/Formoterol Fumarate (Symbicort 160-4.5 Mcg Inhaler) 160 MCG-4.5 MCG/ ACTUATION HFA.AER.AD 2 PUF INH BID copd Cholecalciferol (Vitamin D3) (Vitamin D) 2,000 UNIT CAPSULE 1 CAP PO DAILY SUPPLEMENT (Reported) Diclofenac Sodium (Voltaren) 1 % GEL..GRAM. 1 GM TOP 4 TIMES/DAY Shoulder pain apply to affected area(s) Diltiazem HCl (Cardizem) 60 MG TABLET 60 MG PO TID A. fib Levothyroxine Sodium (Synthroid) 88 MCG TABLET 1 TAB PO DAILY THYROID PROBLEMS Lorazepam (Ativan) 0.5 MG TABLET 1 TAB PO Q6-8H PRN ANXIETY (Reported) Losartan Potassium (Cozaar) 25 MG TABLET 1 TAB PO DAILY blood pressure control Metformin HCl 500 MG TABLET 1 TAB PO DAILY DM (Reported) Metoprolol Tartrate 25 MG TABLET 12.5 TAB PO BID HIGH BLOOD PRESSURE Review of Systems Comments Review of Systems Constitutional: Reports: no symptoms. EENTM: Reports: no symptoms. Cardiovascular: Reports: palpitations. Respiratory: Reports: short of breath. GI: Reports: no symptoms. Genitourinary: Reports: no symptoms. Musculoskeletal: Reports: no symptoms. Skin: Reports: no symptoms. Neurological/Psychological: Reports: no symptoms. Hematologic/Endocrine: Reports: no symptoms. Immunologic/Allergic: Reports: no symptoms. All Other Systems: Reviewed and Negative Past History Travel History Traveled to [place] past 21 day No Medical History Blood Transfusion Hx: Yes Neurological: paraplegia status post spine fx/fall intention tremor EENT: epistaxis Cardiovascular: AFIB (PAF), CAD (s/p stent to RCA vs PTCA), CHF, hypertension, hyperlipidemia, myocardial infarction Respiratory: COPD, interstitial lung disease, LUNG CA RUL LOBECTOMY O2 DEPENDENT 2-3L Gastrointestinal: lactose intolerance, [id number], SIGMOID COLECTOMY 02/13 colonoscopy fair prep - tics but no polyps 02/13- egd gastritis DIVERTICULOSIS COLI Hepatic: NONE Renal: urinary incontinence Musculoskeletal: chronic back pain (post fall), degen joint disease, BROKEN BACK 15 YEARS AGO UNABLE TO BEAR WEIGHT Psychiatric: anxiety Endocrine: diabetes, hypothyroidism Blood Disorders: NONE (chronic), anemia Cancer(s): lung cancer (s/p RUL lobectomy SC Ca), AdenoCa in situ- sigmoid resection 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 , Age 70. FHx: stomach cancer FATHER ("some type of Ca"- not colon Ca). , Age 63. FH: cancer BROTHER FH: prostate cancer Psychosocial History Who Do You Live With? child, SHE LIVES WITH HER DAUGHTER Services at Home: Nursing, Oxygen Primary Language: Polish Smoking Status: Former Smoker Living Will? yes Power of Rubber Curer/HCP? yes Name of POA/HCP: Pt's son, Constantino Boston Functional Ability ADLs Needs Assist: dressing, eating, toileting, bathing. Ambulation: non-ambulatory (W/C) IADLs Needs Assist: shopping, housework, finances, food prep, telephone, transportation, medication admin. Exam & Diagnostic Data Last 24 Hrs of Vital Signs/I&O Vital Signs Date Time Temp Pulse Resp B/P B/P Pulse O2 O2 Flow FiO2 Mean Ox Delivery Rate 04/19 1623 97.5 93 18 130/68 98 Nasal 4.0L Cannula 04/19 1621 Nasal 3.0L Cannula 04/19 1430 99 Nasal 2.0L Cannula 04/19 1420 Nasal 2.0L Cannula 04/19 1258 99.0 82 22 136/89 99 Nasal 3.0L Cannula 04/19 1158 78 95/55 04/19 1122 98.9 78 22 96/53 100 Nasal 2.0L Cannula 04/19 1021 96.4 79 12 124/60 04/19 1021 96.4 80 12 124/60 04/19 0840 96.4 86 18 154/67 98 Venti Mask 30% 04/19 0813 96.4 86 18 154/67 98 Venti Mask 30% 04/19 0546 96.7 84 22 141/74 99 Venti Mask 30% 04/19 0042 101 20 123/67 98 Venti Mask 30% 04/18 2256 110 144/70 04/18 2213 99.7 115 24 141/66 96 Part ReBreather 04/18 2055 Part ReBreather 04/18 2048 140 137/71 04/18 204 99.3 140 26 135/71 94 Part ReBreather 04/18 1944 98.7 132 16 146/96 93 Nasal 2.0L Cannula Intake & Output 04/19 1600 04/19 0800 04/19 0000 Intake Total 520 Output Total 1100 750 Balance -580 -750 Intake, Oral 520 Output, Urine 1100 750 Patient 142 lb Weight Weight Reported by Patient Measurement Method Last 48 Hrs of Labs/Twan: Laboratory Tests 04/19/17 1658: Lactic Acid Cancelled 04/19/17 1358: Lactic Acid Cancelled 04/19/17 0553: Anion Gap 12, Estimated GFR > 60, BUN/Creatinine Ratio 22.5, TSH 0.665, Free T4 2.04 H, CBC w Diff NO MAN DIFF REQ, RBC 3.15 L, MCV 89.6, MCH 29.3, RDW 14.7 H, MPV 7.1 L, Gran % 66.2, Lymphocytes % 25.7, Monocytes % 6.3, Eosinophils % 1.1, Basophils % 0.7, Absolute Granulocytes 5.8, Absolute Lymphocytes 2.3, Absolute Monocytes 0.6, Absolute Eosinophils 0.1, Absolute Basophils 0.1, PUBS MCHC 32.7 L 04/19/17 0217: Troponin I 0.08 04/18/172254: Lactic Acid 1.4 04/18/172100: Urinalysis LIGHT H, Urine Color YEL, Urine Clarity TURBD H, Urine pH 6.0, Ur Specific [place] 1.025, Urine Protein 100 H, Urine Ketones NEG, Urine Nitrite POS H, Urine Bilirubin NEG, Urine Urobilinogen 0.2, Ur Leukocyte Esterase LARGE H, Ur Microscopic SEDIMENT EXAMINED, Urine RBC 5-10 H, Urine WBC PACKD H, Ur Epithelial Cells MOD H, Urine Bacteria PACKD H, Urine Mucus FEW, Urine Hemoglobin LARGE H, Urine Glucose NEG 04/18/172024: Anion Gap 16, Estimated GFR > 60, BUN/Creatinine Ratio 20.0, Glucose 219 H, Lactic Acid 2.5 H, Calcium 9.4, Phosphorus 4.6 H, Magnesium 1.6, Total Bilirubin 0.6, AST 22, ALT 25, Alkaline Phosphatase 110, Troponin I 0.03, Pro-B- Natriuretic Pept 9620 H, Total Protein 7.6, Albumin 3.9, Globulin 3.7, Albumin/ Globulin Ratio 1.1, PT 18.4 H, INR 1.76 H, APTT 33, CBC w Diff NO MAN DIFF REQ , RBC 3.69 L, MCV 91.4, MCH 29.4, RDW 15.0 H, MPV 7.8, Gran % 82.1 H, Lymphocytes % 12.7 L, Monocytes % 3.7, Eosinophils % 1.1, Basophils % 0.4, Absolute Granulocytes 9.0 H, Absolute Lymphocytes 1.4, Absolute Monocytes 0.4, Absolute Eosinophils 0.1, Absolute Basophils 0, PUBS MCHC 32.2 L Microbiology 04/18 2024 NASOPHARYN: Influenza Virus A & B Rapid Smear - COMP Assessment/Plan Impression/Plan: Physical Exam General Appearance: Alert, Oriented X3, Cooperative, Mild Distress Cardiovascular: irregularly irregular Lungs: slightly reduced air entry Abdomen: Soft, No Tenderness CT IMPRESSION: 1. Status post right upper lobectomy with no evidence of residual/recurrent mass at the bronchial stump. 2. Advanced emphysema with superimposed interstitial lung disease. Similar findings were noted previously. Compared to the prior exam, however, there is now also increased thickening of the interlobular septae with the progressive caudal gradient in the lungs. This finding in association with the increasing pleural effusions, the enlarged heart and the enlarged central vessels raises the suspicion of superimposed pulmonary edema. Close clinical correlation is requested. 3. Prominent mediastinal lymph nodes, most likely reactive. 4. Severe coronary artery calcifications. 5. 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 6. Status post cholecystectomy. 7. Small hiatal hernia. 8. Osteopenia with compression deformities at T3, T4 and T5, unchanged. 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 now presumed cured, hypertension, paroxysmal atrial fibrillation was on amiodarone (which has been stopped due to presumed toxicity before, however pt was not converted to sinus rhythm with this )and anticoagulation, previous tachycardia-induced acute pulmonary edema, drug-eluting stent to the RCA in May 2014, paraplegia, nosebleeds, chronic anemia with previous negative GI workup, recurrent bronchitis with mild interstitial lung disease, moderate obstructive pulmonary disease as well now comes in with * Resolved Rapid afib with shortness of breath with tachy cardia induced pulm edema, ct sugg of that * Mild effusion due to chf * Low grade temp, with gram neg lashell in the urine/ GPC in the blood prob coag neg staph but other organisms needs to be ruled out * Chronic anemia * No significant evidence suggestive of acute COPD exacerbation or ILD exacerbation * Paroxysmal atrial fibrillation, needs rate control med * Previous PCI with stent, * 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 * Pulmonary hypertension multifactorial * Chronic small airway disease, mild ILD on top of her mod COPD * Chronic paraplegia * Platypnea with no evidence of any shunt with previous work up for ASD or any shunt physiology neg, and no evidence of decompensated liver disease (is not short of breath while she sits in her wheel chair but cannot sit up in bed) * Chronic stable ischemic heart disease with stent as noted * Previous lung ca with no sig recurrence * Hypothryoid on supp may have mild med induced hyperthyroidism REC COnt oxygen IV abx, prob can dc vanco if stable Dilt po 30 q8 hrs cont low dose betablocker DC azithro NO steroids needed Cont anticoag Consult Acknowledgment - Thank you for your consult request.
--- NOTE | 2017-04-19 19:38 | Cons- Cardiology ---
General Information and HPI Consulting Request Date of Consult: 04/19/17 Requested By: Iona Miller MD History of Present Illness: Mary is an 81-year-old female with history of hypertension, paroxysmal atrial fibrillation and coronary artery disease status post myocardial infarction. She is also status post a right lobectomy for lung cancer. Finally, it should be recalled that this patient has long-standing lower extremity paralysis following trauma. Mary presented to the ER with complaints of recurrent shortness of breath that began soon after her recent discharge from the hospital. She is in atrial fibrillation with controlled heart rate although she was tachycardic upon initial presentation to the ER. She also has a mild chest tightnesss with some radiation to her neck. She also feels minor palpitations without lightheadedness. At one time this patient was on Amiodarone to control her rhythm but this medication was stopped due to concerns that it was causing pulmonary fibrosis. She is now in atrial fibrilloation. It should be noted that this patient is hyperthyroid. Overall, Mary has been doing well for an extended period of time. She does have episodes at night when she feels short of breath but uses her supplemental oxygen and she quickly improves. She also uses Lasix on an as needed basis but has only rarely needed to use it. For the most part Mary is free of any chest discomfort or palpitations. At about 4PM she has noted transient lightheadedness on a fairly consistent basis. This is unchanged despite lowering her Metoprolol dose. Her daughter checks her BP during these episodes and it tends to be a bit high rather than low. It should be recalled that this patient had a severely elevated blood pressure often above 200mmHg but it is now well controlled. She is chronically short of breath without orthopnea but at present he breathing is about at her baseline which except for some occasional exceptions is comfortable. At baseline she tends to be anemic. Mary has had multiple hospital admissions over a short period of time for shortness of breath. On last visit this was accompanied by anemia that was beyond her baseline, although she does carry a chronic history of low H/H. Her admissions are typically accompanied by findings of pulmonary edema and there is often a component of tachtycardia or rapid palpitations that accompany her decompensation. She denies orthopnea and, if fact, typically has platypnea. We have previously worked her up for a shunt of ASD and this workup was negative. It should be recalled that this patient underwent angioplasty to her mid right coronary artery a couple months ago which had a significant flow-limiting stenosis. The remainder of her coronary anatomy was within the normal range. Her hospital course was complicated by an RSV pneumonia. It should be recalled that this patient has had previous shortness of breath with platypnea; as such, a bubble study was performed to rule out any ASD or shunt. This did not appear to be present. Her EF was noted to be normal. She was taken off amiodarone, which she was previously on due to possible concerns over toxicity, although a CT scan did not show any evidence of this. At baseline, this patient can engage in light housework such as washing some dishes in her wheelchair. It should be noted that, in the past prior to her recent PCI, the patient did have some intermittent exertional chest tightness with mildly positive cardiac enzymes. Lastly, this patient has complained of food getting stuck in her esophagus. The patient's cardiac workup has included an echocardiogram. This study showed an overall normal EF of 60% with mild left ventricular enlargement. In terms of cardiac valves there was moderate mitral and tricuspid regurgitation and mild aortic and pulmonic insufficiency. She has moderate pulmonary hypertension. Allergies/Medications Allergies: Coded Allergies: amlodipine (Severe, C/P 05/27/16) codeine (Severe, C/P 05/27/16) morphine (Severe, C/P 05/27/16) omeprazole (Severe, C/P 05/27/16) Home Med List: Apixaban (Eliquis) 5 MG TABLET 5 MG PO BID afib . Atorvastatin Calcium 10 MG TABLET 1 TAB PO DAILY CHOLESTEROL (Reported) Budesonide/Formoterol Fumarate (Symbicort 160-4.5 Mcg Inhaler) 160 MCG-4.5 MCG/ ACTUATION HFA.AER.AD 2 PUF INH BID copd Cholecalciferol (Vitamin D3) (Vitamin D) 2,000 UNIT CAPSULE 1 CAP PO DAILY SUPPLEMENT (Reported) Diclofenac Sodium (Voltaren) 1 % GEL..GRAM. 1 GM TOP 4 TIMES/DAY Shoulder pain apply to affected area(s) Diltiazem HCl (Cardizem) 60 MG TABLET 60 MG PO TID A. fib Levothyroxine Sodium (Synthroid) 88 MCG TABLET 1 TAB PO DAILY THYROID PROBLEMS Lorazepam (Ativan) 0.5 MG TABLET 1 TAB PO Q6-8H PRN ANXIETY (Reported) Losartan Potassium (Cozaar) 25 MG TABLET 1 TAB PO DAILY blood pressure control Metformin HCl 500 MG TABLET 1 TAB PO DAILY DM (Reported) Metoprolol Tartrate 25 MG TABLET 12.5 TAB PO BID HIGH BLOOD PRESSURE Review of Systems Review of Systems: A review of systems is unremarkable other than the above. Past History Travel History Traveled to [place] past 21 day No Medical History Blood Transfusion Hx: Yes Neurological: paraplegia status post spine fx/fall intention tremor EENT: epistaxis Cardiovascular: AFIB (PAF), CAD (s/p stent to RCA vs PTCA), CHF, hypertension, hyperlipidemia, myocardial infarction Respiratory: COPD, interstitial lung disease, LUNG CA RUL LOBECTOMY O2 DEPENDENT 2-3L Gastrointestinal: lactose intolerance, [id number], SIGMOID COLECTOMY 02/13 colonoscopy fair prep - tics but no polyps 02/13- egd gastritis DIVERTICULOSIS COLI Hepatic: NONE Renal: urinary incontinence Musculoskeletal: chronic back pain (post fall), degen joint disease, BROKEN BACK 15 YEARS AGO UNABLE TO BEAR WEIGHT Psychiatric: anxiety Endocrine: diabetes, hypothyroidism Blood Disorders: NONE (chronic), anemia Cancer(s): lung cancer (s/p RUL lobectomy SC Ca), AdenoCa in situ- sigmoid resection 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 , Age 70. FHx: stomach cancer FATHER ("some type of Ca"- not colon Ca). , Age 63. FH: cancer BROTHER FH: prostate cancer Psychosocial History Who Do You Live With? child, SHE LIVES WITH HER DAUGHTER Services at Home: Nursing, Oxygen Primary Language: Beninese Smoking Status: Former Smoker Living Will? yes Power of Material Control Associate/HCP? yes Name of POA/HCP: Pt's sonConstantino Functional Ability ADLs Needs Assist: dressing, eating, toileting, bathing. Ambulation: non-ambulatory (W/C) IADLs Needs Assist: shopping, housework, finances, food prep, telephone, transportation, medication admin. ECHO Results (as available) Report: CONCLUSIONS 1. Mildly decreased EF of 45% with moderate anterior and anteroseptal wall hypokinesis. 2. Mild left ventricular hypertrophy. 3. Mild mitral regurgitation. 4. Mild tricuspid regurgitation. Exam & Diagnostic Data Vital Signs and I&O Vital Signs Date Time Temp Pulse Resp B/P B/P Pulse O2 O2 Flow FiO2 Mean Ox Delivery Rate 04/19 1623 97.5 93 18 130/68 98 Nasal 4.0L Cannula 04/19 1621 Nasal 3.0L Cannula 04/19 1430 99 Nasal 2.0L Cannula 04/19 1420 Nasal 2.0L Cannula 04/19 1258 99.0 82 22 136/89 99 Nasal 3.0L Cannula 04/19 1158 78 95/55 04/19 1122 98.9 78 22 96/53 100 Nasal 2.0L Cannula 04/19 1021 96.4 79 12 124/60 04/19 1021 96.4 80 12 124/60 04/19 0840 96.4 86 18 154/67 98 Venti Mask 30% 04/19 0813 96.4 86 18 154/67 98 Venti Mask 30% 04/19 0546 96.7 84 22 141/74 99 Venti Mask 30% 04/19 0042 101 20 123/67 98 Venti Mask 30% 04/18 2256 110 144/70 04/18 2213 99.7 115 24 141/66 96 Part ReBreather 04/18 2054 Part ReBreather 04/18 2048 140 137/71 04/18 2044 99.3 140 26 135/71 94 Part ReBreather 04/18 1944 98.7 132 16 146/96 93 Nasal 2.0L Cannula Intake & Output 04/19 1600 04/19 0800 04/19 0000 04/18 1600 04/18 0800 04/18 0000 Intake Total 520 Output Total 1100 750 Balance -580 -750 Intake, Oral 520 Output, Urine 1100 750 Patient 142 lb Weight Weight Reported by Patient Measurement Method Physical Exam: General: WD/overweight female in mild distress; alert and oriented x 3 HEETN: NC/AT, PERRL, EOMI Neck: no JVD, no carotid bruit Heart: irregularly irregular Lungs: decreased breath sounds bilaterally without crackles Abdomen: soft, obese, NT, +ve bowel sounds Extremities: no edema Neuro: bilateral lower extremity paralysis Assessment/Plan Assessment/Plan * This patient continues to be in atrial fibrillation but with controlled heart rate which is expected to improve even more as the patient's hyperthyroidism improved. She has evidence of emphysematous COPD and interstitial lung disease superimposed on decreased lung capacity from a lobectomy. In the setting of physiologic stress there is also some evidence of puomonary edema. Continue Cardizem at 60mg TID and begin Lopressor 25mg BID. This patient should continue on Eliquis 5mg BID for stroke prophylaxis * Mild CHF. Begin Lasix 40mg IV daily. Consult Acknowledgment - Thank you for your consult request.
[2017-04-19 21:59] VITALS: BP 112/62
[2017-04-20 06:37] VITALS: BP 118/52
--- NOTE | 2017-04-20 07:28 | PN- Housestaff ---
AkinKatina 04/20/17 0728: Subjective Follow-up For: Jelly diehl with RVR Acute on chronic hypoxic respiratory failure Complaints: no complaints Tele-Events Since Last Visit: No Overnight significant tele events noted Subjective: Patient was seen and examined this morning she was lying comfortably on bed without any complaints. His heart rate remained stable in 70s to 90s. She was on Cardizem drip at rate 5. She remained hemodynamically stable and afebrile. Her culture showed coagulase-negative staph most likely contamination and her vancomycin was discontinued. Review of Systems Constitutional: Denies: diaphoresis, fever. Cardiovascular: Denies: chest pain, orthopena. Respiratory: Reports: short of breath. Denies: hemoptysis. Gastrointestinal: Denies: constipation. Genitourinary: Denies: frequency, hematuria. Musculoskeletal: Denies: gout, joint pain. Objective Last 24 Hrs of Vital Signs/I&O Vital Signs Date Time Temp Pulse Resp B/P B/P Pulse O2 O2 Flow FiO2 Mean Ox Delivery Rate 04/20 1330 97 Nasal 2.0L Cannula 04/20 0925 118/50 04/20 0924 106 118/50 04/20 0800 99 Nasal 3.0L Cannula 04/20 0637 98.6 95 20 118/52 97 Nasal Cannula 04/20 0000 96 Nasal 3.0L Cannula 04/19 2202 97 Nasal 2.0L Cannula 04/19 2159 93.0 93 18 112/62 98 Nasal Cannula 04/19 2107 80 112/62 04/19 1623 97.5 93 18 130/68 98 Nasal 4.0L Cannula 04/19 1621 Nasal 3.0L Cannula 04/19 1430 99 Nasal 2.0L Cannula 04/19 1420 Nasal 2.0L Cannula Intake & Output 04/20 1600 04/20 0800 04/20 0000 Intake Total 150 260 Output Total 150 500 Balance 0 -240 Intake, IV 40 Intake, Oral 150 220 Output, Urine 150 500 Patient 135 lb Weight Weight Bed scale Measurement Method Physical Exam General Appearance: Alert, Oriented X3, Cooperative, No Acute Distress Cardiovascular: Normal S1, Normal S2, irregularly irregular Abdomen: reduced air entry Extremities: No Cyanosis, No Edema Current Medications: Current Medications Sig/Jonel Start time Last Medication Dose Route Stop Time Status Admin Acetaminophen 650 MG Q6P PRN 04/18 2245 AC PO Albuterol Sulfate 3 ML Q4P PRN 04/19 1500 AC INH Apixaban 5 MG BID 04/19 1000 AC 04/20 PO 0925 Atorvastatin Calcium 10 MG 1700 04/19 1700 AC 04/19 PO 1828 Azithromycin 500 MG DAILY 04/19 1000 DC 04/20 Sodium Chloride 250 ML IV 0930 Ceftriaxone Sodium 1,000 MG DAILY 04/19 1000 AC 04/20 IV 0922 Diltiazem HCl 60 MG TID 04/20 1315 AC PO Diltiazem HCl 125 MG Q12H 04/18 2045 DC 04/20 Sodium Chloride 100 ML IV 1017 Furosemide 40 MG DAILY 04/20 1000 AC 04/20 IV 0918 Ibuprofen 600 MG Q6P PRN 04/18 2245 AC PO Insulin Aspart 0 TIDAC 04/19 0800 AC 04/19 SC 1828 Ketorolac 15 MG Q12 PRN 04/18 2245 DC Tromethamine IV Levothyroxine Sodium 0.088 MG DAILY AC 04/19 0700 AC 04/20 PO 0539 Lorazepam 0.5 MG Q6P PRN 04/18 2330 AC 04/19 PO 04/25 2329 2111 Losartan Potassium 25 MG DAILY 04/19 1000 AC 04/20 PO 0925 Metoprolol Tartrate 25 MG BID 04/19 2200 AC 04/20 PO 0924 Metoprolol Tartrate 3.125 MG BID 04/19 1000 DC 04/19 PO 1021 Vancomycin HCl 1,000 MG DAILY 04/19 1345 DC 04/19 Dextrose/Water 250 ML IV 1456 Last 24 Hrs of Lab/Twan Results Last 24 Hrs of Labs/Mics: Laboratory Tests 04/20/17 0617: Anion Gap 9, Estimated GFR > 60, BUN/Creatinine Ratio 25.0, CBC w Diff NO MAN DIFF REQ, RBC 3.02 L, MCV 90.3, MCH 29.4, RDW 14.6 H, MPV 7.8, Gran % 57.3, Lymphocytes % 29.6, Monocytes % 7.9, Eosinophils % 4.4, Basophils % 0.8, Absolute Granulocytes 4.0, Absolute Lymphocytes 2.1, Absolute Monocytes 0.6, Absolute Eosinophils 0.3, Absolute Basophils 0.1, PUBS MCHC 32.6 L 04/19/17 1658: Lactic Acid Cancelled Microbiology 04/19 1413 BLOOD: Blood Culture - CAN Cancelled: SPECIMEN NOT RECEIVED IN LABORATORY Assessment/Plan Assessment: Patient is 72-year-old female with past medical history significant for atrial fibrillation on anticoagulation, coronary artery disease status post stent placement, history of congestive heart failure, hypertension, dyslipidemia , COPD on home oxygen, lung cancer status post lobectomy, diabetes, hypothyroidism, interstitial lung disease recently admitted at [facility] with atrial fibrillation with RVR/bronchitis came in with chief complaint of worsening shortness of breath and generalized weakness. Heart rate was found to be in 130s to 140s on admission and was started on Cardizem drip brings her heart rate around 80s to 90s. During her hospital stay we will address following problems Problem #1 atrial fibrillation with RVR Patient responded well to Cardizem drip and was titrated down. Patient was started on oral Cardizem 60 mg 3 times a day and she was also started on Lopressor yesterday. We will continue Eliquis Cardiology is on board Her TSH is normal with slightly elevated T4 We will continue her current dose of levothyroxine problem #2 acute on chronic respiratory failure with underlying interstitial lung disease Supplemental oxygen to keep oxygen saturation more than 90% Pulmonology evaluation Yesterday when her blood culture grew gram-positive cocci in cluster was given a dose of vancomycin but we DC'd it today when culture showed coagulase negative staph. Azithromycin was also discontinued. There is no evidence of pneumonia on imaging study Problem #3 urinary tract infection/ we will continue ceftriaxone and wait for the culture results for sensitivity to come back and will change it to oral to complete a course of 5 days. Problem #4 CAD status post stent placement We will continue her home medications Problem List: 1. Atrial fibrillation Pain Ratin Pain Location: Not applicable Pain Goal: Remain pain free Pain Plan: Tylenol Tomorrow's Labs & Rationales: Cbc and basic electrolyte panel Iona Miller MD 04/20/17 1023: Attending MD Review Statement Attending Statement Attending MD Statement: examined this patient, discuss w/resident/PA/PROJECT PROGRAM MANAGER, agreed w/resident/PA/PROJECT PROGRAM MANAGER, reviewed EMR data (avail), discussed with nursing, discussed with case mgmt, amended to note Attending Assessment/Plan: Patient seen and examined. Lying comfortably in bed not in acute distress. Reports feeling much better. Denies shortness of breath at rest. Denies cough. She remains in atrial fibrillation however her rate is better controlled. She remains on Cardizem infusion at 5 mg/h. This was then cut down to 2.5 mg/h. Urine cultures currently growing gram-negative rods. Patient admitted to having dysuria prior to admission. Mishra catheter was placed in the emergency room. On examination she is not in any distress. Heart sounds are regular. Lungs are clear bilaterally. Abdomen is soft and nontender. Problems: 1. Atrial fibrillation with rapid ventricular response. 2. Symptomatic urinary tract infection. 3. Pneumonia has been ruled out. 4. History of coronary artery disease. 5. History of hypothyroidism 6. Atrial fibrillation on anticoagulation.(She reportedly had toxicities of amiodarone in the past. She remained in atrial fibrillation even when on amiodarone.) Recommendations: -Begin patient on Cardizem 60 mg orally 3 times a day. Give first dose now. -Discontinue Cardizem infusion after initiation of Cardizem orally. -Continue patient on metoprolol. Due to her underlying COPD do not escalate dose. -Patient admits to dysuria prior to admission. Urine culture is positive for gram-negative rods. Continue antibiotic therapy with ceftriaxone. Once sensitivities are obtained transition to oral antibiotics to complete 5 days of therapy. -She has no evidence of pneumonia on chest CT. Shortness of breath on admission was likely related to her rapid A. fib. -She needs to be well rate controlled at all times. She is having repeated hospitalizations due to rapid A. fib. This episode may have been triggered by her urinary tract infection. Consider addition of digoxin for further optimization of her rate. -Discontinue Mishra catheter. She reports that her urologist stated that she would require intermittent catheterization due to urinary retention. her daughter has been doing this for however patient reports that in recent time she has asked for this to be stopped due to her discomfort. Please check urine residuals following discontinuation of Mishra catheter
[2017-04-20 08:09] LABS: ABSOLUTE BASOPHIL COUNT 0.1 /CUMM (0.0-0.2); ABSOLUTE EOSINOPHIL COUNT 0.3 /CUMM (0.0-0.7); ABSOLUTE LYMPH COUNT 2.1 /CUMM (1.2-3.4); ABSOLUTE MONOCYTE COUNT 0.6 /CUMM (0.10-0.60); BASOPHIL % 0.8 % (0.0-2.0); EOSINOPHIL % 4.4 % (0-5); GRANULOCYTE % 57.3 % (42.2-75.2); HEMATOCRIT 27.3 % (37-47); MEAN CORPUSCULAR HGB 29.4 PG (27.0-31.0); MEAN CORPUSCULAR HGB CONC 32.6 G/DL (33.0-37.0); MEAN CORPUSCULAR VOLUME 90.3 FL (81.0-99.0); MEAN PLATELET VOLUME 7.8 FL (7.4-10.4); PLATELET COUNT 421 /CUMM (130-400); RBC DISTRIBUTION WIDTH 14.6 % (11.5-14.5); RED BLOOD CELL CT 3.02 /CUMM (4.20-5.40)
--- NOTE | 2017-04-20 10:05 | PN- Pulmonary ---
Subjective HPI/Critical Care Issues: Sleeping stable Objective Current Medications: Current Medications Sig/Jonel Start time Last Medication Dose Route Stop Time Status Admin Acetaminophen 650 MG Q6P PRN 04/18 2245 AC PO Albuterol Sulfate 3 ML Q4P PRN 04/19 1500 AC INH Apixaban 5 MG BID 04/19 1000 AC 04/20 PO 0925 Atorvastatin Calcium 10 MG 1700 04/19 1700 AC 04/19 PO 1828 Azithromycin 500 MG DAILY 04/19 1000 DC 04/20 Sodium Chloride 250 ML IV 0930 Ceftriaxone Sodium 1,000 MG DAILY 04/19 1000 AC 04/20 IV 0922 Diltiazem HCl 125 MG Q12H 04/18 2045 AC 04/19 Sodium Chloride 100 ML IV 0937 Furosemide 40 MG DAILY 04/20 1000 AC 04/20 IV 0918 Ibuprofen 600 MG Q6P PRN 04/18 2245 AC PO Insulin Aspart 0 TIDAC 04/19 0800 AC 04/19 SC 1828 Ketorolac 15 MG Q12 PRN 04/18 2245 AC Tromethamine IV Levothyroxine Sodium 0.088 MG DAILY AC 04/19 0700 AC 04/20 PO 0539 Lorazepam 0 .STK-MED ONE 04/19 1157 DC PO Lorazepam 0.5 MG Q6P PRN 04/18 2330 AC 04/19 PO 04/25 2329 2111 Losartan Potassium 25 MG DAILY 04/19 1000 AC 04/20 PO 0925 Metoprolol Tartrate 25 MG BID 04/19 2200 AC 04/20 PO 0924 Metoprolol Tartrate 3.125 MG BID 04/19 1000 DC 04/19 PO 1021 Vancomycin HCl 1,000 MG DAILY 04/19 1345 DC 04/19 Dextrose/Water 250 ML IV 1456 Vital Signs & I&O Last 24 Hrs of Vitals and I&O: Vital Signs Date Time Temp Pulse Resp B/P B/P Pulse O2 O2 Flow FiO2 Mean Ox Delivery Rate 04/20 0925 118/50 04/20 0924 106 118/50 04/20 0637 98.6 95 20 118/52 97 Nasal Cannula 04/20 0000 96 Nasal 3.0L Cannula 04/19 2201 97 Nasal 2.0L Cannula 04/19 2158 93.0 93 18 112/62 98 Nasal Cannula 04/19 2107 80 112/62 04/19 1623 97.5 93 18 130/68 98 Nasal 4.0L Cannula 04/19 1621 Nasal 3.0L Cannula 04/19 1430 99 Nasal 2.0L Cannula 04/19 1420 Nasal 2.0L Cannula 04/19 1258 99.0 82 22 136/89 99 Nasal 3.0L Cannula 04/19 1158 78 95/55 04/19 1122 98.9 78 22 96/53 100 Nasal 2.0L Cannula 04/19 1021 96.4 79 12 124/60 04/19 1021 96.4 80 12 124/60 Intake & Output 04/20 1600 04/20 0800 04/20 0000 Intake Total 150 260 Output Total 150 500 Balance 0 -240 Intake, IV 40 Intake, Oral 150 220 Output, Urine 150 500 Patient 135 lb Weight Weight Bed scale Measurement Method Impression/Plan Impression/Plan Impression/Plan: Physical Exam General Appearance: Alert, Oriented X3, Cooperative, Mild Distress Cardiovascular: irregularly irregular Lungs: slightly reduced air entry Abdomen: Soft, No Tenderness CT IMPRESSION: 1. Status post right upper lobectomy with no evidence of residual/recurrent mass at the bronchial stump. 2. Advanced emphysema with superimposed interstitial lung disease. Similar findings were noted previously. Compared to the prior exam, however, there is now also increased thickening of the interlobular septae with the progressive caudal gradient in the lungs. This finding in association with the increasing pleural effusions, the enlarged heart and the enlarged central vessels raises the suspicion of superimposed pulmonary edema. Close clinical correlation is requested. 3. Prominent mediastinal lymph nodes, most likely reactive. 4. Severe coronary artery calcifications. 5. 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 6. Status post cholecystectomy. 7. Small hiatal hernia. 8. Osteopenia with compression deformities at T3, T4 and T5, unchanged. 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 now presumed cured, hypertension, paroxysmal atrial fibrillation was on amiodarone (which has been stopped due to presumed toxicity before, however pt was not converted to sinus rhythm with this )and anticoagulation, previous tachycardia-induced acute pulmonary edema, drug-eluting stent to the RCA in May 2014, paraplegia, nosebleeds, chronic anemia with previous negative GI workup, recurrent bronchitis with mild interstitial lung disease, moderate obstructive pulmonary disease as well now comes in with * Resolved Rapid afib with shortness of breath with tachy cardia induced pulm edema, ct sugg of that * Mild effusion due to chf * Low grade temp, with gram neg lashell in the urine/ GPC in the blood prob coag neg staph but other organisms needs to be ruled out * Chronic anemia * No significant evidence suggestive of acute COPD exacerbation or ILD exacerbation * Paroxysmal atrial fibrillation, needs rate control med * Previous PCI with stent, * 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 * Pulmonary hypertension multifactorial * Chronic small airway disease, mild ILD on top of her mod COPD * Chronic paraplegia * Platypnea with no evidence of any shunt with previous work up for ASD or any shunt physiology neg, and no evidence of decompensated liver disease (is not short of breath while she sits in her wheel chair but cannot sit up in bed) * Chronic stable ischemic heart disease with stent as noted * Previous lung ca with no sig recurrence * Hypothryoid on supp may have mild med induced hyperthyroidism REC COnt oxygen IV abx, prob can dc vanco if stable and if she has coag neg staph Dilt po 60 q8 please start and if tolerates may start long acting cont low dose betablocker, do not increase the dose IF she has lower bp with above meds hold losartan for now DC azithro NO steroids needed Cont anticoag
[2017-04-20 15:36] VITALS: BP 120/72
--- NOTE | 2017-04-20 15:49 | PN- Cardiology ---
Subjective Subjective: * Breathing is improved. * atrial fibrillation with mildly increased heart rate Objective Vital Signs and I&Os Vital Signs Date Time Temp Pulse Resp B/P B/P Pulse O2 O2 Flow FiO2 Mean Ox Delivery Rate 04/20 1536 97.7 103 20 120/72 98 04/20 1424 98.6 106 20 118/50 04/20 1330 97 Nasal 2.0L Cannula 04/20 0925 118/50 04/20 0924 106 118/50 04/20 0800 99 Nasal 3.0L Cannula 04/20 0637 98.6 95 20 118/52 97 Nasal Cannula 04/20 0000 96 Nasal 3.0L Cannula 04/19 2202 97 Nasal 2.0L Cannula 04/19 2159 93.0 93 18 112/62 98 Nasal Cannula 04/19 2107 80 112/62 04/19 1623 97.5 93 18 130/68 98 Nasal 4.0L Cannula 04/19 1621 Nasal 3.0L Cannula Intake & Output 04/20 1600 04/20 0800 04/20 0000 04/19 1600 04/19 0800 04/19 0000 Intake Total 505 150 260 520 Output Total 1300 148 239 1161 750 Balance -795 0 -240 -580 -750 Intake, IV 25 40 Intake, Oral 480 150 220 520 Output, Urine 1300 058 896 8841 750 Patient 135 lb 142 lb Weight Weight Bed scale Reported by Patient Measurement Method Physical Exam: General: WD/overweight female in mild distress; alert and oriented x 3 HEETN: NC/AT, PERRL, EOMI Neck: no JVD, no carotid bruit Heart: irregularly irregular Lungs: decreased breath sounds bilaterally without crackles Abdomen: soft, obese, NT, +ve bowel sounds Extremities: no edema Neuro: bilateral lower extremity paralysis Assessment/Plan Assessment/Plan * Atrial fibrillation: mildly increased heart rate but unlikely to be a problem. Her heart rate will likely improve over time as her hyperthyroidism is treated. Continue Cardizem 60mg TID and Metoprolol 25mg BID. Do not raise Metoprolol dose to minimize bronchospasm. * CHF is improved. Change to oral Lasix at 60mg daily. Continue Eliquis for stroke prophylaxis. Continue telemetry? Yes
--- NOTE | 2017-04-20 16:22 | Discharge Summary ---
Visit Information Visit Dates Admission Date: 04/18/17 Hospital Course Course Attending Physician: Iona Miller MD Primary Care Physician: Alexandria VENCES,Westley Cazares Consulting Request: Consulting Specialty: Cardiology Consulting Physician: [facility] Hospital Course: Patient is 81-year-old female with past medical history significant for paraplegia secondary to spinal cord injury, diabetes, paroxysmal atrial fibrillation on anticoagulation, CAD status post AK status post stent placement, heart failure with preserved ejection fraction, COPD on 2 L home oxygen, interstitial lung disease, lung cancer status post right upper lobe resection, history of colon cancer status post sigmoid resection and Gem's thyroiditis, recent admission at [facility] was discharged on April 13 treated for atrial fibrillation with RVR and bronchitis came in with chief complaint of worsening shortness of breath. Patient was admitted on telemetric floor and following issues were addressed: Problem #1 atrial fibrillation with RVR Cardiology consultation was placed. On admission her heart rate was in 140s. Was started on Cardizem drip and was titrated to keep heart rate in 80s and 90s. Cardizem drip was discontinued and transitioned to oral Cardizem 60 mg 3 times a day and metoprolol 25 mg was added in her regimen and her heart rate remained within reasonable range. Her anticoagulation with Eliquis was continued during her hospital stay. She was provided with supplemental oxygen to keep oxygen saturation more than 90%. She was continued on IV Lasix initially which was changed to oral. And will discharge her on 60 mg of Lasix and patient was instructed to follow-up with Dr. Langley and repeat BEP on Sunday. Problem #2 acute on chronic respiratory failure with underlying interstitial lung disease Initially she was started on azithromycin and ceftriaxone but no evidence of pneumonia was found on imaging study and azithromycin was discontinued. Ceftriaxone was continued because of UTI. Problem #3 urinary tract infection She grew gram-negative rods in her urine and was continued on antibiotics to complete a course of 5 days. Problem #4 bacteremia/sepsis One set of her blood culture grew gram-positive cocci in clusters and was given a dose of 5, I seen but later on came back coagulase-negative staph and her antibiotics were discontinued. Problem #5 pulmonary edema Patient was initially started on IV Lasix and was changed to oral later. Chronic issues CAD status post stent placement, hypertension, diabetes, dyslipidemia, Gem's thyroiditis She was continued on her oral home medications. Complications: none Allergies: Coded Allergies: amlodipine (Severe, C/P 05/27/16) codeine (Severe, C/P 05/27/16) morphine (Severe, C/P 05/27/16) omeprazole (Severe, C/P 05/27/16) Significant Procedures: SERVICE DATE: 04/19/17- EXAM TYPE: CAT - CT CHEST WO IV CONTRAST EXAMINATION: CT CHEST WITHOUT CONTRAST CLINICAL INFORMATION: Shortness of breath. Infiltrates on chest x-ray. Pneumonia versus interstitial lung disease. History of right upper lobe lung cancer. COMPARISON: Chest x-ray dated 04/18/2017. CT scan of the chest dated 04/01/2016 and multiple prior scans of the chest dating back to 12/26/2013.. TECHNIQUE: Multidetector volumetric CT imaging of the chest was obtained noncontrast. Sagittal and coronal reformations were obtained. DLP: 180.85 mGy-cm. FINDINGS: LUNGS: The patient is status post right upper lobectomy with slight volume loss seen in the right hemithorax with elevation of the right hemidiaphragm and minimal shift of the mediastinum toward the right side. Postsurgical changes as seen in the right hilar region and periphery of the right lung. There are diffuse areas of mosaic attenuation seen throughout the lungs with patchy areas of air trapping seen, consistent with pulmonary emphysema. In the periphery of the lungs bilaterally, more prominent in the lower lobes, but also involving upper lobes, there is diffuse interlobular septal thickening and bandlike thickening seen. No honeycomb cyst formation is noted. Findings have progressed when compared to 04/01/2016. There are mild bronchiectatic changes with the central airways all diffusely thickened and mildly ectatic. Subpleural cysts are noted in the lingula. There is enlargement of the central pulmonary arteries, raising the suspicion of pulmonary arterial hypertension. Bilateral small pleural effusions are seen layering posteriorly all the way up to the lung apices, slightly larger on the left side than the right and new on the left side and larger on the right side when compared to 2016. Subjacent areas of dependent atelectasis are noted in both lower lobes. There are several scattered tiny calcific densities seen in the periphery of the lower lobes bilaterally, more numerous on the left side than the right. When compared to the prior exam, these findings have progressed slightly. LYMPHOVASCULAR STRUCTURES: Aortic and heart size normal. Severe atherosclerotic calcifications of the aorta, all 3 coronary arteries, and the great vessels. Prominent mitral annular calcifications is seen. Cardiac silhouette is mildly enlarged with four-chamber enlargement of the heart seen. No pericardial effusion. Multiple mediastinal lymph nodes are seen, largest of which is in the subcarinal region, measuring 1.2 cm in short axis as compared to 1.4 cm (04/01/2016), most consistent with reactive lymph nodes. No enlarging mediastinal, hilar or axillary adenopathy. THYROID GLAND: Not seen and either markedly atrophic or surgically absent. UPPER ABDOMEN: Again seen is ill-defined nodularity of the left adrenal gland, measuring approximately 1.3 x 1.4 cm (series 2, image 55) (with mean attenuation values of 11.9 Hounsfield units, consistent with a benign lipid rich adenoma. This mass had previously measured 1.1 x 1.2 cm. Post cholecystectomy eben are seen in the right upper quadrant. Small retrocardiac hiatal hernia is noted. Included portions of the solid organs in the upper abdomen otherwise unremarkable. BONES: Diffuse osteopenia with mild compression deformities in the upper thoracic spine (T3, T4 and T5), unchanged from 04/01/2016. Evidence of prior posterior spinal decompression and fusion from the T9 level down into the spine, not fully imaged. Prominent Schmorl's node is seen at the inferior endplate of T12. IMPRESSION: 1. Status post right upper lobectomy with no evidence of residual/recurrent mass at the bronchial stump. 2. Advanced emphysema with superimposed interstitial lung disease. Similar findings were noted previously. Compared to the prior exam, however, there is now also increased thickening of the interlobular septae with the progressive caudal gradient in the lungs. This finding in association with the increasing pleural effusions, the enlarged heart and the enlarged central vessels raises the suspicion of superimposed pulmonary edema. Close clinical correlation is requested. 3. Prominent mediastinal lymph nodes, most likely reactive. 4. Severe coronary artery calcifications. 5. 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 6. Status post cholecystectomy. 7. Small hiatal hernia. 8. Osteopenia with compression deformities at T3, T4 and T5, unchanged. DICTATED BY: Radha VENCES,Frida Ball Disposition Summary Disposition Principal Diagnosis: Atrial fibrillation with RVR Additional Diagnosis: Hypertension Discharge Instructions General Discharge Information Code Status: Full Code Patient's Diet: Heart healthy diet Patient's Activity: As tolerated Follow-Up Instructions/Appts: Please follow-up with your primary care physician in one week of discharge Please follow-up with your casting coordinator and professional services specialist in 1 week of discharge Medications at Discharge Discharge Medications: Stop taking the following medications: Metoprolol Tartrate (Metoprolol Tartrate) 25 MG TABLET ORAL TWICE DAILY Qty = 60 Continue taking these medications: Metformin HCl (Metformin HCl) 500 MG TABLET 1 Tablet ORAL DAILY Comments: NOT GIVEN Lorazepam (Ativan) 0.5 MG TABLET 1 Tablet ORAL Q6-8H as needed for ANXIETY Comments: Last Taken: 04/22/17 Time: 9AM Cholecalciferol (Vitamin D3) (Vitamin D) 2,000 UNIT CAPSULE 1 Capsule ORAL DAILY Comments: NOT GIVEN WHILE IN HOSPITAL Apixaban (Eliquis) 5 MG TABLET 5 Milligram ORAL TWICE DAILY Qty = 60 Instructions: . Comments: Last Taken: 04/24/17 Time: 8:30 AM Atorvastatin Calcium (Atorvastatin Calcium) 10 MG TABLET 1 Tablet ORAL DAILY Comments: Last Taken: 04/23/17 Time: 5PM Diltiazem HCl (Cardizem) 60 MG TABLET 60 Milligram ORAL THREE TIMES DAILY Qty = 120 Comments: Last Taken: 04/24/17 Time: 8:30AM Budesonide/Formoterol Fumarate (Symbicort 160-4.5 Mcg Inhaler) 160 MCG-4.5 MCG/ ACTUATION HFA.AER.AD 2 Puff Inhale through mouth TWICE DAILY Qty = 1 Comments: NOT GIVEN WHILE IN HOSPITAL Diclofenac Sodium (Voltaren) 1 % GEL..GRAM. 1 Gram On the skin 4 TIMES A DAY Qty = 1 Instructions: apply to affected area(s) Comments: NOT GIVEN WHILE IN HOSPITAL Levothyroxine Sodium (Synthroid) 88 MCG TABLET 1 Tablet ORAL DAILY Qty = 30 Comments: Last Taken: 04/24/17 Time: 6AM Losartan Potassium (Cozaar) 25 MG TABLET 1 Tablet ORAL DAILY Qty = 30 Comments: Last Taken: 04/24/17 Time: 8:30AM Start taking the following new medications: Prednisone (Prednisone) 10 MG TABLET 4 Tablet ORAL DAILY Qty = 16 No Refills Instructions: .4 tab x1 day,then 3 tab daily x 2 days then 2 tab a day for 2 days then 1 tab for 2 days then stop Comments: Last Taken: 04/24/17 Time: 8:30AM Furosemide (Furosemide) 20 MG TABLET 60 Milligram ORAL DAILY Qty = 30 No Refills Comments: Last Taken: 04/24/17 Time: 8:30AM Metoprolol Tartrate (Metoprolol Tartrate) 25 MG TABLET 1 Tablet ORAL TWICE DAILY Qty = 60 No Refills Comments: Last Taken: 04/24/17 Time: 8:30AM Attending MD Review Statement Documenting Attending: Iona Miller MD
--- NOTE | 2017-04-20 16:26 | Patient Discharge Instructions ---
Discharge Instructions General Discharge Information You were seen/treated for: Atrial fibrillation with RVR Pulmonary edema Urinary tract infection Special Instructions: Please follow-up with your primary care physician in one week of discharge Please follow-up with her forestry hunter in 1 week of discharge Please follow-up with your cargo and ramp services manager in 1 week of discharge Please repeat BEP on Sunday04/20/17 and f/u with PCP Diet Recommended Diet: Heart Healthy Activity Additional ACTIVITY Info: As tolerated Acute Coronary Syndrome Inclusion Criteria At DC or during hospital stay patient has or had the following: ACS DIAGNOSIS No Discharge Core Measures Meds if any: Prescribed or Continued at Discharge Meds if any: NOT Prescribed or Continued at Discharge Congestive Heart Failure Inclusion Criteria At DC or during hospital stay patient has or had the following: CHF DIAGNOSIS Yes Discharge Core Measures Meds if any: Prescribed or Continued at Discharge JEFFREY/ARB for EF <40% Yes Meds if any: NOT Prescribed or Continued at Discharge Cerebrovascular accident Inclusion Criteria At DC or during hospital stay patient has or had the following: CVA/TIA Diagnosis No Discharge Core Measures Meds if any: Prescribed or Continued at Discharge Meds if any: NOT Prescribed or Continued at Discharge Venous thromboembolism Inclusion Criteria VTE Diagnosis No VTE Type NONE VTE Confirmed by (Test) NONE Discharge Core Measures - Per Current guidelines, there needs to be overlap - treatment for the first 5 days of Warfarin therapy. - If discharged on Warfarin prior to 5 days of - overlap therapy, the patient will need to be - assessed for post discharge needs including - *Post discharge parental anticoagulation - *Warfarin and/or parental anticoagulation education - *Follow up date to check INR post discharge At least 5 days overlap therapy as Inpatient No Meds if any: Prescribed or Continued at Discharge Note: Overlap Therapy is Warfarin and Anticoagulant Meds if any: NOT Prescribed or Continued at Discharge
[2017-04-20 22:26] VITALS: BP 112/62
[2017-04-21 06:23] VITALS: BP 102/64
[2017-04-21 08:33] LABS: ABSOLUTE BASOPHIL COUNT 0.1 /CUMM (0.0-0.2); ABSOLUTE EOSINOPHIL COUNT 0.4 /CUMM (0.0-0.7); ABSOLUTE GRANULOCYTE CT 4.3 /CUMM (1.4-6.5); ABSOLUTE MONOCYTE COUNT 0.4 /CUMM (0.10-0.60); BASOPHIL % 0.9 % (0.0-2.0); EOSINOPHIL % 5.9 % (0-5); GRANULOCYTE % 59.8 % (42.2-75.2); MEAN CORPUSCULAR HGB 29.6 PG (27.0-31.0); MEAN CORPUSCULAR HGB CONC 32.6 G/DL (33.0-37.0); MEAN CORPUSCULAR VOLUME 90.8 FL (81.0-99.0); MEAN PLATELET VOLUME 7.7 FL (7.4-10.4); PLATELET COUNT 394 /CUMM (130-400); RBC DISTRIBUTION WIDTH 14.3 % (11.5-14.5); RED BLOOD CELL CT 3.08 /CUMM (4.20-5.40); WHITE BLOOD CELL COUNT 7.2 /CUMM (4.8-10.8)
--- NOTE | 2017-04-21 08:54 | PN- Housestaff ---
Subjective Follow-up For: Jelly diehl with RVR Acute on chronic hypoxic respiratory failure Subjective: Patient seen and examined, reported shortness of breath, no overnight events reported by the nurse of the patient. Review of Systems Constitutional: Reports: see HPI. Objective Last 24 Hrs of Vital Signs/I&O Vital Signs Date Time Temp Pulse Resp B/P B/P Pulse O2 O2 Flow FiO2 Mean Ox Delivery Rate 04/21 1623 88 04/21 1458 98.0 82 18 108/60 98 Nasal 2.0L Cannula 04/21 1444 Nasal 3.0L Cannula 04/21 0851 74 106/72 04/21 0851 74 106/72 04/21 0851 74 106/72 04/21 0801 Nasal 3.0L Cannula 04/21 0623 97.8 80 18 102/64 97 Nasal 2.0L Cannula 04/21 0000 Nasal 3.0L Cannula 04/20 2226 98.1 101 22 112/62 97 Nasal 2.0L Cannula 04/20 2200 101 112/62 04/20 2200 101 112/62 Intake & Output 04/21 1600 04/21 0800 04/21 0000 Intake Total 820 450 200 Output Total Balance 820 450 200 Intake, IV 20 Intake, Oral 800 450 200 Physical Exam General Appearance: Alert, Oriented X3, Cooperative, No Acute Distress Skin: No Rashes, No Breakdown Skin Temp/Moisture Exam: Warm/Dry Neck: Supple Cardiovascular: Normal S1, Normal S2, No Murmurs Lungs: Clear to Auscultation, Normal Air Movement Abdomen: Normal Bowel Sounds, Soft, No Tenderness Extremities: No Clubbing, No Cyanosis, No Edema Assessment/Plan Assessment: Patient is 72-year-old female with past medical history significant for atrial fibrillation on anticoagulation, coronary artery disease status post stent placement, history of congestive heart failure, hypertension, dyslipidemia , COPD on home oxygen, lung cancer status post lobectomy, diabetes, hypothyroidism, interstitial lung disease recently admitted at with atrial fibrillation with RVR/bronchitis came in with chief complaint of worsening shortness of breath and generalized weakness. Heart rate was found to be in 130s to 140s on admission and was started on Cardizem drip brings her heart rate around 80s to 90s. During her hospital stay we will address following problems Problem #1 atrial fibrillation with RVR Patient responded well to Cardizem drip and was titrated down. Patient was started on oral Cardizem 60 mg 3 times a day and she was also started on Lopressor yesterday. We will continue Eliquis Cardiology is on board Her TSH is normal with slightly elevated T4 We will continue her current dose of levothyroxine problem #2 acute on chronic respiratory failure with underlying interstitial lung disease Supplemental oxygen to keep oxygen saturation more than 90% Pulmonology evaluation Yesterday when her blood culture grew gram-positive cocci in cluster was given a dose of vancomycin but we DC'd it today when culture showed coagulase negative staph. Azithromycin was also discontinued. There is no evidence of pneumonia on imaging study Problem #3 urinary tract infection/ Antibiotic was switched to ciprofloxacin based on culture to continue 5 days of antibiotic given complicated with pyelonephritis. Post voiding residual is 400 mL, note that patient has no Mishra catheter and she has urine incontinece Problem #4 CAD status post stent placement We will continue her home medications Problem List: 1. Urinary incontinence 2. Atrial fibrillation Pain Ratin Pain Location: n/a Pain Goal: Pain 4 or less Pain Plan: see medication Tomorrow's Labs & Rationales: BMP Consulting Request: Consulting Specialty: Cardiology Consulting Physician:
[2017-04-21 14:58] VITALS: BP 108/60
--- NOTE | 2017-04-21 15:51 | PN- Att Addend ---
Attending Addendum Attending Brief Note Attending MD Statement: examined this patient, discuss w/resident/PA/MAT TESTER, agreed w/resident/PA/MAT TESTER, reviewed EMR data (avail), discussed with nursing, discussed with case mgmt, amended to note Attending Assessment/Plan: Patient seen and examined. Lying comfortably in bed not in acute distress. Reports feeling much better. Denies shortness of breath at rest. Denies cough. Switched to oral cardizem and lopressor. On exam, S1 S2 irregular, no murmurs, rubs appreciated. Lungs bilaterally clear. Abdomen examination is benign Problems: 1. Atrial fibrillation with rapid ventricular response. 2. Symptomatic urinary tract infection. 3. Pneumonia has been ruled out. 4. History of coronary artery disease. 5. History of hypothyroidism 6. Atrial fibrillation on anticoagulation.(She reportedly had toxicities of amiodarone in the past. She remained in atrial fibrillation even when on amiodarone.) Recommendations: - Continue with Oral CCB and BB at the same dose - Has COPD, so can escalate CCB if needed rather than BB - Still has complaints of dysuria - Pansensitive UTI - Will switch to Oral Abx - Cipro for 5 days and stop -She has no evidence of pneumonia on chest CT. Shortness of breath on admission was likely related to her rapid A. fib. -She needs to be well rate controlled at all times. She is having repeated hospitalizations due to rapid A. fib. This episode may have been triggered by her urinary tract infection. - -Discontinue Mishra catheter. She reports that her urologist stated that she would require intermittent catheterization due to urinary retention. her daughter has been doing this for however patient reports that in recent time she has asked for this to be stopped due to her discomfort. Please check urine residuals following discontinuation of Mishra catheter
[2017-04-21 23:00] VITALS: BP 138/74
[2017-04-22 06:43] VITALS: BP 122/52
--- NOTE | 2017-04-22 14:24 | PN- Att Addend ---
Attending Addendum Attending Brief Note Attending MD Statement: examined this patient, discuss w/resident/PA/BUSINESS DATABASE ANALYST, agreed w/resident/PA/BUSINESS DATABASE ANALYST, reviewed EMR data (avail), discussed with nursing, discussed with case mgmt, amended to note Attending Assessment/Plan: Ms. Boston is a 81 y/o female with paraplegia secondary to spinal cord injury, DM, PAF, CAD S/P MS S/P stent RCA, S/P CVA, HFpEF, COPD on 2 L NC, ILD, lung cancer S/P RUL resection, history of colon cancer S/P sigmoid resection, Gem's thyroiditis was admitted with chief complaints of shortness of breath. Found to be in atrial fibrillation with a rapid ventricular rate Patient seen and examined. Lying comfortably in bed not in acute distress. Reports feeling more tired than usual. Denies shortness of breath at rest. Denies cough. Switched to oral cardizem and lopressor. On exam, S1 S2 irregular, no murmurs, rubs appreciated. Lungs bilaterally clear. Abdomen examination is benign Problems: 1. Atrial fibrillation with rapid ventricular response. 2. Symptomatic urinary tract infection. 3. Pneumonia has been ruled out. 4. History of coronary artery disease. 5. History of hypothyroidism 6. Atrial fibrillation on anticoagulation.(She reportedly had toxicities of amiodarone in the past. She remained in atrial fibrillation even when on amiodarone.) Recommendations: - Continue with Oral CCB and BB at the same dose - Has COPD, so can escalate CCB if needed rather than BB - Still has complaints of dysuria - Pansensitive UTI - Will switch to Oral Abx - Cipro for a total of 5 days and stop -She has no evidence of pneumonia on chest CT. Shortness of breath on admission was likely related to her rapid A. fib. -She needs to be well rate controlled at all times. She is having repeated hospitalizations due to rapid A. fib. This episode may have been triggered by her urinary tract infection. -Had urinary residuals of about 400 mL, however this is not too abnormal considering her paraplegia and urinary incontinence.
[2017-04-22 17:42] VITALS: BP 112/60
--- NOTE | 2017-04-22 18:34 | PN- Housestaff ---
Subjective Follow-up For: Jelly diehl with RVR Acute on chronic hypoxic respiratory failure Complaints: complaining of dry cough Tele-Events Since Last Visit: no any overnight events Subjective: Patient is seen and examined at the bedside. She was complaining of dry cough and chest pain. I advised to add cough medicine and repeat the chest x-ray. Review of Systems Constitutional: Reports: no symptoms (, worsening posture now it is ). Respiratory: Reports: cough. Objective Last 24 Hrs of Vital Signs/I&O Vital Signs Date Time Temp Pulse Resp B/P B/P Pulse O2 O2 Flow FiO2 Mean Ox Delivery Rate 04/22 1742 99.2 96 18 112/60 93 04/22 1616 96 Nasal 3.0L Cannula 04/22 1537 120/62 04/22 0912 90 124/70 04/22 0912 124/70 04/22 0912 124/70 04/22 0801 94 Nasal 3.0L Cannula 04/22 0643 98.6 94 20 122/52 96 Nasal 2.0L Cannula 04/21 2342 Nasal 3.0L Cannula 04/21 2300 98.8 70 20 138/74 98 Nasal 2.0L Cannula 04/21 2048 74 112/64 04/21 2048 74 112/64 Intake & Output 04/22 1600 04/22 0800 04/22 0000 Intake Total 400 360 360 Output Total Balance 400 360 360 Intake, Oral 400 360 360 Number 1 Bowel Movements Physical Exam General Appearance: Alert, Oriented X3, Cooperative, No Acute Distress Cardiovascular: Normal S1, Normal S2 Lungs: mild crackles upper part of the chest Abdomen: Soft, No Tenderness Neurological: bilateral lower extremity 1/5 Extremities: No Clubbing, No Cyanosis, mild bilateral nonpitting edema, with chronic changes Vascular: Normal Pulses, Pulses Symmetrical Assessment/Plan Assessment: Patient is 72-year-old female with past medical history significant for atrial fibrillation on anticoagulation, coronary artery disease status post stent placement, history of congestive heart failure, hypertension, dyslipidemia , COPD on home oxygen, lung cancer status post lobectomy, diabetes, hypothyroidism, interstitial lung disease recently admitted at [facility] with atrial fibrillation with RVR/bronchitis came in with chief complaint of worsening shortness of breath and generalized weakness. Heart rate was found to be in 130s to 140s on admission and was started on Cardizem drip brings her heart rate around 80s to 90s. Assessment and plan - Atrial fibrillation with rapid ventricular rate - * Stopped Cardizem drip and started on tablet Cardizem 60 mg 3 times a day and continued on Lopressor 25 milligrams twice a day * We will continue Tab Eliquis * We will follow Cardiologic recommendation * Her TSH is normal with slightly elevated T4 * We will continue current dose of levothyroxine Acute on chronic respiratory failure with underlying interstitial lung disease * oxygen to keep oxygen saturation more than 90% * Pulmonology evaluation * Culture showed coagulase negative staph. * Continued tablet ciprofloxacin 500 milligrams twice a day * She was c/o Cough , advised for CXR and added tessmychaln pearls UTI with urinary incontinence - * Continue Ciprofloxacin 5 days of antibiotic given complicated with pyelonephritis. Chronic medication condition - CAD status post stent placement * We will continue her home medications CODE STATUS-full code DVT prophylaxis -Eliquis Diet -Consistent carbohydrate diet 3 Problem List: 1. Bronchitis 2. Urinary incontinence 3. UTI (urinary tract infection) Pain Ratin Pain Location: n/a Pain Goal: Remain pain free Pain Plan: avoid Sedatives Tomorrow's Labs & Rationales: CBC and BEP for f/u DVT/Prophylaxis: mechanical, pharmacological Consulting Request: Consulting Specialty: Cardiology Consulting Physician:
[2017-04-22 21:34] VITALS: BP 144/80
--- NOTE | 2017-04-22 22:49 | RADIOLOGY REPORT ---
EXAMINATION: XR PORTABLE CHEST CLINICAL INFORMATION: Breathing difficulty. Question pneumonia. COMPARISON: Chest radiograph 04/18/2017. CT chest 1 11/17/2017. TECHNIQUE: Portable frontal view of the chest was obtained. FINDINGS: Stable small right pleural effusion with minimal right basilar atelectasis and/or pneumonia. Overall there is improved aeration of the right lung base compared to the prior examination. Lungs are otherwise clear. Cardiomediastinal silhouette and pulmonary vasculature are within normal limits There are cholecystectomy clips in the right upper abdomen. Moderate device projects over the right lower abdomen. Posterior spinal fusion hardware of the thoracic or lumbar spine is only partially visualized but appears unchanged. IMPRESSION: Improved aeration of the right lung base with a small right pleural effusion and minimal right basilar atelectasis and/or pneumonia.
[2017-04-23 07:14] VITALS: BP 128/62
--- NOTE | 2017-04-23 07:51 | PN- Housestaff ---
Katina Gerardo 04/23/17 0751: Subjective Follow-up For: Marilu diehl Urinary tract infection Acute on chronic respiratory failure Subjective: Patient was seen and examined this morning. She was lying on bed and admits that she is still short of breath and coughing a lot. She denied any palpitations, chest pain. She remained afebrile and hemodynamically stable. Review of Systems Constitutional: Denies: chills, diaphoresis. Cardiovascular: Denies: edema, orthopena. Respiratory: Reports: cough. Gastrointestinal: Denies: constipation, distention. Objective Last 24 Hrs of Vital Signs/I&O Vital Signs Date Time Temp Pulse Resp B/P B/P Pulse O2 O2 Flow FiO2 Mean Ox Delivery Rate 04/23 1043 95 Nasal 2.0L Cannula 04/23 0842 104 128/62 04/23 0841 128/62 04/23 0841 114 128/62 04/23 0800 96 Nasal 2.0L Cannula 04/23 0714 99.0 73 18 128/62 94 Nasal Cannula 04/22 2134 98.8 112 18 144/80 94 04/22 2110 96 148/60 04/22 2109 96 148/60 04/22 1742 99.2 96 18 112/60 93 04/22 1616 96 Nasal 3.0L Cannula 04/22 1537 120/62 Intake & Output 04/23 1600 04/23 0800 04/23 0000 Intake Total 100 150 Output Total Balance 100 150 Intake, Oral 100 150 Number 1 Bowel Movements Physical Exam General Appearance: Alert, Oriented X3, Cooperative, No Acute Distress Cardiovascular: irregularly irregular Lungs: Normal Air Movement Abdomen: Soft, No Tenderness Current Medications: Current Medications Sig/Jonel Start time Last Medication Dose Route Stop Time Status Admin Acetaminophen 650 MG Q6P PRN 04/18 2245 AC PO Albuterol Sulfate 3 ML Q4P PRN 04/19 1500 DC INH Apixaban 5 MG BID 04/19 1000 AC 04/23 PO 0842 Atorvastatin Calcium 10 MG 1700 04/19 1700 AC 04/22 PO 1538 Benzonatate 100 MG TID 04/22 1833 AC 04/23 PO 0842 Ciprofloxacin 500 MG BID 04/22 1000 AC 04/23 PO 04/26 0959 0841 Diltiazem HCl 60 MG TID 04/20 1315 AC 04/23 PO 0841 Furosemide 60 MG DAILY 04/21 1000 AC 04/23 PO 0840 Ibuprofen 600 MG Q6P PRN 04/18 2245 AC PO Insulin Aspart 0 TIDAC 04/19 0800 AC 04/19 SC 1828 Levothyroxine Sodium 0.088 MG DAILY AC 04/19 0700 AC 04/23 PO 0600 Lorazepam 0.5 MG Q6P PRN 04/18 2330 AC 04/22 PO 04/25 2329 0914 Losartan Potassium 25 MG DAILY 04/19 1000 AC 04/23 PO 0842 Metoprolol Tartrate 25 MG BID 04/19 2200 AC 04/23 PO 0841 Prednisone 40 MG DAILY 04/23 1056 AC 04/23 PO 1157 Last 24 Hrs of Lab/Twan Results Last 24 Hrs of Labs/Mics: Laboratory Tests 04/23/17722: Anion Gap 12, Estimated GFR > 60, BUN/Creatinine Ratio 30.0 H, CBC w Diff NO MAN DIFF REQ, RBC 3.18 L, MCV 89.3, MCH 29.6, RDW 14.5, MPV 7.8, Gran % 70.2, Lymphocytes % 15.2 L, Monocytes % 11.9 H, Eosinophils % 1.8, Basophils % 0.9, Absolute Granulocytes 4.4, Absolute Lymphocytes 1.0 L, Absolute Monocytes 0.7 H, Absolute Eosinophils 0.1, Absolute Basophils 0.1, PUBS MCHC 33.2 Assessment/Plan Assessment: Patient is 72-year-old female with past medical history significant for atrial fibrillation on anticoagulation, coronary artery disease status post stent placement, history of congestive heart failure, hypertension, dyslipidemia , COPD on home oxygen, lung cancer status post lobectomy, diabetes, hypothyroidism, interstitial lung disease recently admitted at [facility] with atrial fibrillation with RVR/bronchitis came in with chief complaint of worsening shortness of breath and generalized weakness. Heart rate was found to be in 130s to 140s on admission and was started on Cardizem drip brings her heart rate around 80s to 90s. Assessment and plan - Atrial fibrillation with rapid ventricular rate - * Patient is currently rate controlled on oral Cardizem and beta blockers. We will continue her anticoagulation. We will DC telemetry monitoring today. Acute on chronic respiratory failure with underlying interstitial lung disease * oxygen to keep oxygen saturation more than 90%. * Pulmonology evaluation appreciated * Culture showed coagulase negative staph. * Continued tablet ciprofloxacin 500 milligrams twice a day for total of 5 days * She was c/o Cough and we will start her on prednisone with quick short taper. UTI with urinary incontinence - * Continue Ciprofloxacin 5 days of antibiotic given complicated with pyelonephritis. Chronic medication condition - CAD status post stent placement * We will continue her home medications CODE STATUS-full code DVT prophylaxis -Eliquis Diet -Consistent carbohydrate diet 3 Problem List: 1. Atrial fibrillation 2. COPD (chronic obstructive pulmonary disease) Pain Ratin Pain Location: Not applicable Pain Goal: Remain pain free Pain Plan: Tylenol Tomorrow's Labs & Rationales: Basic electrolyte panel Consulting Request: Consulting Specialty: Cardiology Consulting Physician: DR.SPECTOR Angela VENCES,[facility] 04/23/17 1132: Attending MD Review Statement Attending Statement Attending MD Statement: examined this patient, discuss w/resident/PA/STEVEDORE HOLD, agreed w/resident/PA/STEVEDORE HOLD, reviewed EMR data (avail), discussed with nursing, discussed with case mgmt, amended to note Attending Assessment/Plan: Patient seen and examined. Resting comfortably not in any acute distress. No issues overnight. This morning however she complains of a nonproductive cough. Denies shortness of breath. Denies chest pain. She remains afebrile hemodynamically stable. Maintaining saturation on 2 L of oxygen. On auscultation she has diffuse rhonchi bilaterally. Chest x-ray done over the weekend showed improved aeration of the right lung base with a small right pleural effusion, minimal right basilar atelectasis and/or/pneumonia. Recommendations: -Patient is currently rate controlled on Cardizem and metoprolol. She is on anticoagulant therapy with Eliquis. - patient is also tolerating losartan in addition to above medications for blood pressure control. -Begin patient on prednisone for her bronchitis. Ensure patient is receiving bronchodilator therapy every 4 hours and not just prn. Patient to continue her Symbicort upon discharge. -Monitor glucose levels closely while on steroid therapy. Continue insulin sliding scale coverage. Metformin on hold while inpatient. -Discontinue antibiotic therapy after 5 days of treatment.
[2017-04-23 08:20] LABS: ABSOLUTE BASOPHIL COUNT 0.1 /CUMM (0.0-0.2); ABSOLUTE EOSINOPHIL COUNT 0.1 /CUMM (0.0-0.7); ABSOLUTE GRANULOCYTE CT 4.4 /CUMM (1.4-6.5); ABSOLUTE MONOCYTE COUNT 0.7 /CUMM (0.10-0.60); BASOPHIL % 0.9 % (0.0-2.0); EOSINOPHIL % 1.8 % (0-5); GRANULOCYTE % 70.2 % (42.2-75.2); HEMATOCRIT 28.4 % (37-47); MEAN CORPUSCULAR HGB 29.6 PG (27.0-31.0); MEAN CORPUSCULAR HGB CONC 33.2 G/DL (33.0-37.0); MEAN CORPUSCULAR VOLUME 89.3 FL (81.0-99.0); MEAN PLATELET VOLUME 7.8 FL (7.4-10.4); PLATELET COUNT 356 /CUMM (130-400); RBC DISTRIBUTION WIDTH 14.5 % (11.5-14.5); RED BLOOD CELL CT 3.18 /CUMM (4.20-5.40); WHITE BLOOD CELL COUNT 6.3 /CUMM (4.8-10.8)
--- NOTE | 2017-04-23 13:12 | PN- Pulmonary ---
Subjective HPI/Critical Care Issues: DOing ok Cough still on and off Objective Current Medications: Current Medications Sig/Jonel Start time Last Medication Dose Route Stop Time Status Admin Acetaminophen 650 MG Q6P PRN 04/18 2245 AC PO Albuterol Sulfate 3 ML Q4P PRN 04/19 1500 DC INH Apixaban 5 MG BID 04/19 1000 AC 04/23 PO 0842 Atorvastatin Calcium 10 MG 1700 04/19 1700 AC 04/22 PO 1538 Benzonatate 100 MG TID 04/22 1833 AC 04/23 PO 0842 Ciprofloxacin 500 MG BID 04/22 1000 AC 04/23 PO 04/26 0959 0841 Diltiazem HCl 60 MG TID 04/20 1315 AC 04/23 PO 0841 Furosemide 60 MG DAILY 04/21 1000 AC 04/23 PO 0840 Ibuprofen 600 MG Q6P PRN 04/18 2245 AC PO Insulin Aspart 0 TIDAC 04/19 0800 AC 04/19 SC 1828 Levothyroxine Sodium 0.088 MG DAILY AC 04/19 0700 AC 04/23 PO 0600 Lorazepam 0.5 MG Q6P PRN 04/18 2330 AC 04/22 PO 04/25 2329 0914 Losartan Potassium 25 MG DAILY 04/19 1000 AC 04/23 PO 0842 Metoprolol Tartrate 25 MG BID 04/19 2200 AC 04/23 PO 0841 Prednisone 40 MG DAILY 04/23 1056 AC 04/23 PO 1157 Vital Signs & I&O Last 24 Hrs of Vitals and I&O: Vital Signs Date Time Temp Pulse Resp B/P B/P Pulse O2 O2 Flow FiO2 Mean Ox Delivery Rate 04/23 1043 95 Nasal 2.0L Cannula 04/23 0842 104 128/62 04/23 0841 128/62 04/23 0841 114 128/62 04/23 0800 96 Nasal 2.0L Cannula 04/23 0714 99.0 73 18 128/62 94 Nasal Cannula 04/224 98.8 112 18 144/80 94 04/22 2110 96 148/60 04/22 2109 96 148/60 04/22 1742 99.2 96 18 112/60 93 04/22 1616 96 Nasal 3.0L Cannula 04/22 1537 120/62 Intake & Output 04/23 1600 04/23 0800 04/23 0000 Intake Total 100 150 Output Total Balance 100 150 Intake, Oral 100 150 Number 1 Bowel Movements Impression/Plan Impression/Plan Impression/Plan: Physical Exam General Appearance: Alert, Oriented X3, Cooperative, Mild Distress Cardiovascular: irregularly irregular Lungs: slightly reduced air entry Abdomen: Soft, No Tenderness CT IMPRESSION: 1. Status post right upper lobectomy with no evidence of residual/recurrent mass at the bronchial stump. 2. Advanced emphysema with superimposed interstitial lung disease. Similar findings were noted previously. Compared to the prior exam, however, there is now also increased thickening of the interlobular septae with the progressive caudal gradient in the lungs. This finding in association with the increasing pleural effusions, the enlarged heart and the enlarged central vessels raises the suspicion of superimposed pulmonary edema. Close clinical correlation is requested. 3. Prominent mediastinal lymph nodes, most likely reactive. 4. Severe coronary artery calcifications. 5. 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 6. Status post cholecystectomy. 7. Small hiatal hernia. 8. Osteopenia with compression deformities at T3, T4 and T5, unchanged. 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 now presumed cured, hypertension, paroxysmal atrial fibrillation was on amiodarone (which has been stopped due to presumed toxicity before, however pt was not converted to sinus rhythm with this )and anticoagulation, previous tachycardia-induced acute pulmonary edema, drug-eluting stent to the RCA in May 2014, paraplegia, nosebleeds, chronic anemia with previous negative GI workup, recurrent bronchitis with mild interstitial lung disease, moderate obstructive pulmonary disease as well now comes in with * Resolved Rapid afib with shortness of breath with tachy cardia induced pulm edema, ct sugg of that * Mild effusion due to chf * uti * Chronic anemia * No significant evidence suggestive of acute COPD exacerbation or ILD exacerbation * Paroxysmal atrial fibrillation, needs rate control med * Previous PCI with stent, * 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 * Pulmonary hypertension multifactorial * Chronic small airway disease, mild ILD on top of her mod COPD * Chronic paraplegia * Platypnea with no evidence of any shunt with previous work up for ASD or any shunt physiology neg, and no evidence of decompensated liver disease (is not short of breath while she sits in her wheel chair but cannot sit up in bed) * Chronic stable ischemic heart disease with stent as noted * Previous lung ca with no sig recurrence * Hypothryoid on supp 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
[2017-04-23 14:35] VITALS: BP 120/64
[2017-04-23] MEDS ORDERED: PREDNISONE10 M2 PO (14:42)
[2017-04-23] MEDS ORDERED: METOPROLOL TART25 M1 PO (14:43)
[2017-04-23 22:15] VITALS: BP 110/70
[2017-04-24 06:00] VITALS: BP 108/68
[2017-04-24 07:39] VITALS: BP 130/60
--- NOTE | 2017-04-24 08:12 | PN- Housestaff ---
Katina Gerardo 04/24/17 0812: Subjective Follow-up For: Jelly diehl with RVR Acute on chronic hypoxic respiratory failure Subjective: Patient was seen and examined this morning. She was lying comfortably on bed. She still wheezing a little but her cough is better than before. She remained afebrile and hemodynamically stable. Review of Systems Constitutional: Denies: diaphoresis, fever. Cardiovascular: Denies: chest pain, edema. Respiratory: Reports: cough, short of breath. Denies: orthopnea. Gastrointestinal: Denies: bloating, bowel incontinence. Genitourinary: Denies: dysuria, hesitation. Musculoskeletal: Denies: joint pain, joint swelling. Objective Last 24 Hrs of Vital Signs/I&O Vital Signs Date Time Temp Pulse Resp B/P B/P Pulse O2 O2 Flow FiO2 Mean Ox Delivery Rate 04/24 1416 98.3 65 18 110/60 100 04/24 1131 97.8 84 20 120/80 97 04/24 0836 97.5 78 20 108/68 04/24 0835 97.5 78 108/68 04/24 0800 96 Nasal 2.0L Cannula 04/24 0600 97.5 78 20 108/68 97 Nasal 2.0L Cannula 04/24 0400 Nasal 2.0L Cannula 04/24 0000 Nasal 2.0L Cannula 04/23 2215 98.2 75 20 110/70 94 04/23 2143 70 120/64 Intake & Output 04/24 1600 04/24 0800 04/24 0000 Intake Total 50 200 Output Total Balance 50 200 Intake, IV 0 Intake, Oral 50 200 Number 0 Bowel Movements Physical Exam General Appearance: Alert, Oriented X3, Cooperative, No Acute Distress Cardiovascular: Normal S1, Normal S2, No Murmurs, irregularly irregular Lungs: mild bilateral wheezing Abdomen: Soft, No Tenderness Current Medications: Current Medications Sig/Jonel Start time Last Medication Dose Route Stop Time Status Admin Acetaminophen 650 MG Q6P PRN 04/18 2245 DCD PO Apixaban 5 MG BID 04/19 1000 DCD 04/24 PO 0836 Atorvastatin Calcium 10 MG 1700 04/19 1700 DCD 04/23 PO 1700 Benzonatate 100 MG TID 04/22 1833 DCD 04/24 PO 0836 Ciprofloxacin 500 MG BID 04/22 1000 DCD 04/24 PO 04/26 0959 0835 Diltiazem HCl 60 MG TID 04/20 1315 DCD 04/24 PO 0835 Furosemide 60 MG DAILY 04/21 1000 DCD 04/24 PO 0835 Ibuprofen 600 MG Q6P PRN 04/18 2245 DCD PO Insulin Aspart 0 TIDAC 04/19 0800 DCD 04/23 SC 1807 Levothyroxine Sodium 0.088 MG DAILY AC 04/19 0700 DCD 04/24 PO 0635 Lorazepam 0.5 MG Q6P PRN 04/18 2330 DCD 04/22 PO 04/25 2329 0914 Losartan Potassium 25 MG DAILY 04/19 1000 DCD 04/24 PO 0835 Metoprolol Tartrate 25 MG BID 04/19 2200 DCD 04/24 PO 0836 Prednisone 40 MG DAILY 04/23 1056 DCD 04/24 PO 0835 Last 24 Hrs of Lab/Twan Results Last 24 Hrs of Labs/Mics: Laboratory Tests 04/24/17 0640: Anion Gap 11, Estimated GFR > 60, BUN/Creatinine Ratio 30.0 H Assessment/Plan Assessment: Patient is 72-year-old female with past medical history significant for atrial fibrillation on anticoagulation, coronary artery disease status post stent placement, history of congestive heart failure, hypertension, dyslipidemia , COPD on home oxygen, lung cancer status post lobectomy, diabetes, hypothyroidism, interstitial lung disease recently admitted at [facility] with atrial fibrillation with RVR/bronchitis came in with chief complaint of worsening shortness of breath and generalized weakness. Heart rate was found to be in 130s to 140s on admission and was started on Cardizem drip brings her heart rate around 80s to 90s. Assessment and plan - Atrial fibrillation with rapid ventricular rate - * Patient is currently rate controlled on oral Cardizem and beta blockers. We will continue her anticoagulation. Patient is stable to discharge home on her home medications. During his hospital admission we increase her dose oF metoprolol and also we started her on Lasix and we will discharge her on 60 mg of Lasix daily. Acute on chronic respiratory failure with underlying interstitial lung disease * oxygen to keep oxygen saturation more than 90%. * Pulmonology evaluation appreciated * Culture showed coagulase negative staph. * She was started on tapering course of prednisone and we will send her home on short tapering course of prednisone. UTI with urinary incontinence - * Patient completed 5 day course of antibiotics. Chronic medication condition - CAD status post stent placement * We will continue her home medications CODE STATUS-full code DVT prophylaxis -Eliquis Diet -Consistent carbohydrate diet 3 Problem List: 1. Atrial fibrillation Pain Ratin Pain Location: Not applicable Pain Goal: Remain pain free Pain Plan: Tylenol Tomorrow's Labs & Rationales: None Consulting Request: Consulting Specialty: Cardiology Consulting Physician: DR[facility]SPECTOR Angela VENCES[facility] 04/24/17 1134: Attending MD Review Statement Attending Statement Attending MD Statement: examined this patient, discuss w/resident/PA/FRAME STYLIST, agreed w/resident/PA/FRAME STYLIST, reviewed EMR data (avail), discussed with nursing, discussed with case mgmt, amended to note Attending Assessment/Plan: Patient seen and examined. Resting comfortably and not in acute distress. No issues overnight. She reports feeling better today. Denies shortness of breath or chest pain at rest. House staff reported patient was wheezing earlier this morning. This has however resolved. On auscultation she has adequate entry bilaterally and lungs are clear to auscultation. Case discussed with the patient's pulmonology and cardiology service. She is medically stable to be discharged home today. Both services are recommended that patient continue on diuretic therapy. Patient's industrial engineering professor Dr. Langley recommends that patient should be continued on Lasix 60 mg orally daily. She will be discharged on this regimen with recommendations to follow-up with her primary care provider/ cardiology service next week for monitoring of her serum chemistry and titration of her diuretic therapy as needed. She was started on prednisone yesterday when she was noted to be wheezing. This medication will be tapered off slowly.
--- NOTE | 2017-04-24 10:11 | PN- Cardiology ---
Subjective Subjective: * Breathing is improved. Objective Vital Signs and I&Os Vital Signs Date Time Temp Pulse Resp B/P B/P Pulse O2 O2 Flow FiO2 Mean Ox Delivery Rate 04/24 0836 97.5 78 20 108/68 04/24 0835 97.5 78 108/68 04/24 0800 96 Nasal 2.0L Cannula 04/24 0600 97.5 78 20 108/68 97 Nasal 2.0L Cannula 04/24 0400 Nasal 2.0L Cannula 04/24 0000 Nasal 2.0L Cannula 04/23 2215 98.2 75 20 110/70 94 04/23 2143 70 120/64 04/23 1600 Nasal 2.0L Cannula 04/23 1600 70 120/64 04/23 1503 Nasal 2.0L Cannula 04/23 1435 98.9 70 20 120/64 95 Nasal 2.0L Cannula 04/23 1043 95 Nasal 2.0L Cannula Intake & Output 04/24 1600 04/24 0800 04/24 0000 04/23 1600 04/23 0800 04/23 0000 Intake Total 50 200 400 100 150 Output Total Balance 50 200 400 100 150 Intake, IV 0 Intake, Oral 50 200 400 100 150 Number 0 1 Bowel Movements Patient 135 lb Weight Physical Exam: General: WD/overweight female in mild distress; alert and oriented x 3 HEETN: NC/AT, PERRL, EOMI Neck: no JVD, no carotid bruit Heart: irregularly irregular Lungs: decreased breath sounds bilaterally without crackles, scant wheezing is noted Abdomen: soft, obese, NT, +ve bowel sounds Extremities: no edema Neuro: bilateral lower extremity paralysis Assessment/Plan Assessment/Plan * Atrial fibrillation: mildly increased heart rate but unlikely to be a problem. Her heart rate will likely improve over time as her hyperthyroidism is treated. Continue Cardizem 60mg TID and Metoprolol 25mg BID. Do not raise Metoprolol dose to minimize bronchospasm. * CHF is improved. Change to oral Lasix at 60mg daily. Continue Eliquis for stroke prophylaxis. Continue telemetry? No
[2017-04-24] MEDS ORDERED: FUROSEMIDE20 M1 PO (10:13)
[2017-04-24 11:31] VITALS: BP 120/80
[2017-04-24 14:16] VITALS: BP 110/60
[2017-04-24] MEDS ORDERED: PREDNISONE10 M2 PO (14:44)
--- NOTE | 2017-04-24 18:12 | PN- Pulmonary ---
Subjective HPI/Critical Care Issues: Doing ok still coughing Objective Current Medications: Current Medications Sig/Jonel Start time Last Medication Dose Route Stop Time Status Admin Acetaminophen 650 MG Q6P PRN 04/18 2245 DCD PO Apixaban 5 MG BID 04/19 1000 DCD 04/24 PO 0836 Atorvastatin Calcium 10 MG 1700 04/19 1700 DCD 04/23 PO 1700 Benzonatate 100 MG TID 04/22 1833 DCD 04/24 PO 0836 Ciprofloxacin 500 MG BID 04/22 1000 DCD 04/24 PO 04/26 0959 0835 Diltiazem HCl 60 MG TID 04/20 1315 DCD 04/24 PO 0835 Furosemide 60 MG DAILY 04/21 1000 DCD 04/24 PO 0835 Ibuprofen 600 MG Q6P PRN 04/18 2245 DCD PO Insulin Aspart 0 TIDAC 04/19 0800 DCD 04/23 SC 1807 Levothyroxine Sodium 0.088 MG DAILY AC 04/19 0700 DCD 04/24 PO 0635 Lorazepam 0.5 MG Q6P PRN 04/18 2330 DCD 04/22 PO 04/25 2329 0914 Losartan Potassium 25 MG DAILY 04/19 1000 DCD 04/24 PO 0835 Metoprolol Tartrate 25 MG BID 04/19 2200 DCD 04/24 PO 0836 Prednisone 40 MG DAILY 04/23 1056 DCD 04/24 PO 0835 Vital Signs & I&O Last 24 Hrs of Vitals and I&O: Vital Signs Date Time Temp Pulse Resp B/P B/P Pulse O2 O2 Flow FiO2 Mean Ox Delivery Rate 04/24 1416 98.3 65 18 110/60 100 04/24 1131 97.8 84 20 120/80 97 04/24 0836 97.5 78 20 108/68 04/24 0835 97.5 78 108/68 04/24 0800 96 Nasal 2.0L Cannula 04/24 0600 97.5 78 20 108/68 97 Nasal 2.0L Cannula 04/24 0400 Nasal 2.0L Cannula 04/24 0000 Nasal 2.0L Cannula 04/23 2215 98.2 75 20 110/70 94 04/23 2143 70 120/64 Intake & Output 04/24 1600 04/24 0800 04/24 0000 Intake Total 50 200 Output Total Balance 50 200 Intake, IV 0 Intake, Oral 50 200 Number 0 Bowel Movements Impression/Plan Impression/Plan Impression/Plan: Physical Exam General Appearance: Alert, Oriented X3, Cooperative, Mild Distress Cardiovascular: irregularly irregular Lungs: slightly reduced air entry Abdomen: Soft, No Tenderness CT IMPRESSION: 1. Status post right upper lobectomy with no evidence of residual/recurrent mass at the bronchial stump. 2. Advanced emphysema with superimposed interstitial lung disease. Similar findings were noted previously. Compared to the prior exam, however, there is now also increased thickening of the interlobular septae with the progressive caudal gradient in the lungs. This finding in association with the increasing pleural effusions, the enlarged heart and the enlarged central vessels raises the suspicion of superimposed pulmonary edema. Close clinical correlation is requested. 3. Prominent mediastinal lymph nodes, most likely reactive. 4. Severe coronary artery calcifications. 5. 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 6. Status post cholecystectomy. 7. Small hiatal hernia. 8. Osteopenia with compression deformities at T3, T4 and T5, unchanged. 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 now presumed cured, hypertension, paroxysmal atrial fibrillation was on amiodarone (which has been stopped due to presumed toxicity before, however pt was not converted to sinus rhythm with this )and anticoagulation, previous tachycardia-induced acute pulmonary edema, drug-eluting stent to the RCA in May 2014, paraplegia, nosebleeds, chronic anemia with previous negative GI workup, recurrent bronchitis with mild interstitial lung disease, moderate obstructive pulmonary disease as well now comes in with * Resolved Rapid afib with shortness of breath with tachy cardia induced pulm edema, ct sugg of that * Mild effusion due to chf * uti * Chronic anemia * No significant evidence suggestive of acute COPD exacerbation or ILD exacerbation * Paroxysmal atrial fibrillation, needs rate control med * Previous PCI with stent, * 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 * Pulmonary hypertension multifactorial * Chronic small airway disease, mild ILD on top of her mod COPD * Chronic paraplegia * Platypnea with no evidence of any shunt with previous work up for ASD or any shunt physiology neg, and no evidence of decompensated liver disease (is not short of breath while she sits in her wheel chair but cannot sit up in bed) * Chronic stable ischemic heart disease with stent as noted * Previous lung ca with no sig recurrence * Hypothryoid on supp may have mild med induced hyperthyroidism REC COnt oxygen Rate control meds Wean steroids in 7 days Cont anticoag stable for dc soon
== END 2017-04-24 15:15 | DRG 308 ==
LOC: ERH 19:37 → ERHI 21:22 → 1NO 21:22 → ERHI 04-19 08:12 → ENRESERV 04-19 13:40 → ENTRNSPT 04-19 14:48 → EDTRNSPTSTS 04-19 15:17 → 1NO 04-19 15:44 → CMPTRNSPT 04-19 15:51 → 1NO 04-22 14:26 → DELTRNSPT 04-24 10:32 → ENTRNSPT 04-24 10:35 → EDTRNSPTSTS 04-24 10:40 → EDTRNSPT 04-24 10:40 → 2NA 04-24 10:44 → CMPTRNSPT 04-24 11:00 → ENPENDDIS 04-24 11:57 → 2NA 04-24 15:15
PROVIDERS: Emergency Medicine; Internal Medicine; Radiology Vascular & Interventional Radiology; Student in an Organized Health Care Education/Training Program
DX: I48.0 Paroxysmal atrial fibrillation (principal); J96.21 Acute and chronic respiratory failure with hypoxia; J84.9 Interstitial pulmonary disease, unspecified; R78.81 Bacteremia; I27.20 Pulmonary hypertension, unspecified; G82.20 Paraplegia, unspecified; N39.0 Urinary tract infection, site not specified; J44.0 Chronic obstructive pulmonary disease with (acute) lower respiratory infection; I11.0 Hypertensive heart disease with heart failure; I50.9 Heart failure, unspecified; J44.9 Chronic obstructive pulmonary disease, unspecified; Z99.81 Dependence on supplemental oxygen; B96.89 Other specified bacterial agents as the cause of diseases classified elsewhere; E05.80 Other thyrotoxicosis without thyrotoxic crisis or storm; J20.9 Acute bronchitis, unspecified; Z85.038 Personal history of other malignant neoplasm of large intestine; I25.10 Atherosclerotic heart disease of native coronary artery without angina pectoris; Z95.5 Presence of coronary angioplasty implant and graft; E03.9 Hypothyroidism, unspecified; E11.9 Type 2 diabetes mellitus without complications; E78.5 Hyperlipidemia, unspecified; R32 Unspecified urinary incontinence; D64.9 Anemia, unspecified; Z79.84 Long term (current) use of oral hypoglycemic drugs; Z79.01 Long term (current) use of anticoagulants
CPT/HCPCS: 1NP; ERO; 36415; 71045; 81001; 82436; 87040; 87070; 87086; 87147; 87804; 87804-59; 93005; 93010; 96374; 99291; J0456; J0696; J0713; J1940; J3370; J7040; J7060

== ENCOUNTER 2017-04-26 11:27 | Inpatient (IN) | payer OTHER, MEDICARE ==
[~2017-04-26] VITALS: Ht 157.5 cm; Wt 63.0 kg
[~2017-04-26 11:27] MED LIST changes: +FUROSEMIDE20 M1 PO; +PREDNISONE10 M2 PO
--- NOTE | 2017-04-26 11:35 | ED DYSPNEA/ASTHMA COMPLAINT ---
History of Present Illness General Chief Complaint: Dyspnea (COPD, CHF, Other) Stated Complaint: SOB Source: patient Exam Limitations: no limitations Vital Signs & Intake/Output Vital Signs & Intake/Output Vital Signs Date Time Temp Pulse Resp B/P B/P Pulse O2 O2 Flow FiO2 Mean Ox Delivery Rate 04/26 1907 98.4 89 24 128/66 98 Part 4.0L ReBreather 04/26 1605 100 Nasal 4.0L Cannula 04/26 1603 97.8 82 24 126/66 100 Nasal 4.0L Cannula 04/26 1330 86 26 126/66 96 Nasal 4.0L Cannula 04/26 1217 87 26 174/71 100 Part 10L ReBreather 04/26 1202 100 Part 10L ReBreather 04/26 1150 96.8 172/68 Allergies Coded Allergies: amlodipine (Severe, C/P 05/27/16) codeine (Severe, C/P 05/27/16) morphine (Severe, C/P 05/27/16) omeprazole (Severe, C/P 05/27/16) Reconcile Medications Apixaban (Eliquis) 5 MG TABLET 5 MG PO BID afib . Atorvastatin Calcium 10 MG TABLET 1 TAB PO DAILY CHOLESTEROL (Reported) Budesonide/Formoterol Fumarate (Symbicort 160-4.5 Mcg Inhaler) 160 MCG-4.5 MCG/ ACTUATION HFA.AER.AD 2 PUF INH BID copd Cholecalciferol (Vitamin D3) (Vitamin D) 2,000 UNIT CAPSULE 1 CAP PO DAILY SUPPLEMENT (Reported) Diclofenac Sodium (Voltaren) 1 % GEL..GRAM. 1 GM TOP 4 TIMES/DAY Shoulder pain apply to affected area(s) Diltiazem HCl (Cardizem) 60 MG TABLET 60 MG PO TID A. fib Furosemide 20 MG TABLET 60 MG PO DAILY DIURETIC Levothyroxine Sodium (Synthroid) 88 MCG TABLET 1 TAB PO DAILY THYROID PROBLEMS Lorazepam (Ativan) 0.5 MG TABLET 1 TAB PO Q6-8H PRN ANXIETY (Reported) Losartan Potassium (Cozaar) 25 MG TABLET 1 TAB PO DAILY blood pressure control Metformin HCl 500 MG TABLET 1 TAB PO DAILY DM (Reported) Metoprolol Tartrate 25 MG TABLET 1 TAB PO BID HEART HEALTH Prednisone 10 MG TABLET 4 TAB PO DAILY COPD .4 tab x1 day,then 3 tab daily x 2 days then 2 tab a day for 2 days then 1 tab for 2 days then stop Triage Nurses Notes Reviewed? yes Onset: Gradual Duration: constant Timing: single episode today Severity: severe Prior Episodes/Possible Cause: frequent episodes, chronic episodes HPI: Patient is an 81-year-old female with a past medical history significant for paraplegia secondary to spinal cord injury, diabetes, paroxysmal atrial for ablation currently on a liquid's and diltiazem, coronary artery disease status post ND with stent placement, CHF with preserved EF, COPD 2 L at home ILD status post right upper lobe resection with lung cancer, history of colon cancer with sigmoid resection, Gem's thyroiditis who is recently admitted and discharged 2 days ago from [facility] for concerns of rapid atrial fibrillation and COPD exacerbation ILD and bronchitis and UTI. Patient was brought in by a malaise today for acute onset of shortness of breath this morning EMS state that patient was initially given 6 L of nasal cannula by family member oxygen saturation continued be in the low 80s EMS arrived and gave DUO neb and put patient on CPAP with response at 100% patient still complaining of shortness of breath, denies any fever chills chest pain and arm pain jaw pain nausea vomiting like swelling or hemoptysis. (Paulina CRUZ,Jaziel) Past History Travel History Traveled to [place] past 21 day No Medical History Any Pertinent Medical History? see below for history Neurological: paraplegia status post spine fx/fall intention tremor EENT: epistaxis Cardiovascular: AFIB (PAF), CAD (s/p stent to RCA vs PTCA), CHF, hypertension, hyperlipidemia, myocardial infarction Respiratory: COPD, interstitial lung disease, LUNG CA RUL LOBECTOMY O2 DEPENDENT 2-3L Gastrointestinal: lactose intolerance, [id number], SIGMOID COLECTOMY 02/13 colonoscopy fair prep - tics but no polyps 02/13- egd gastritis DIVERTICULOSIS COLI Hepatic: NONE Renal: urinary incontinence Musculoskeletal: chronic back pain (post fall), degen joint disease, BROKEN BACK 15 YEARS AGO UNABLE TO BEAR WEIGHT Psychiatric: anxiety Endocrine: diabetes, hypothyroidism Blood Disorders: NONE (chronic), anemia Cancer(s): lung cancer (s/p RUL lobectomy SC Ca), AdenoCa in situ- sigmoid resection 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 , Age 70. FHx: stomach cancer FATHER ("some type of Ca"- not colon Ca). , Age 63. FH: cancer BROTHER FH: prostate cancer Hx Contributory? No (Jaziel Knight) Review of Systems Review of Systems Constitutional: Reports: no symptoms. EENTM: Reports: no symptoms. Respiratory: Reports: see HPI. Cardiovascular: Reports: see HPI. GI: Reports: no symptoms. Genitourinary: Reports: no symptoms. Musculoskeletal: Reports: no symptoms. Skin: Reports: no symptoms. Neurological/Psychological: Reports: no symptoms. Hematologic/Endocrine: Reports: no symptoms. Immunologic/Allergic: Reports: no symptoms. All Other Systems: Reviewed and Negative (Jaziel Knight) Physical Exam Physical Exam General Appearance: moderate distress, obese Head: atraumatic Eyes: Bilateral: normal appearance, PERRL. Ears, Nose, Throat: normal pharynx, hearing grossly normal Neck: normal inspection Respiratory: crackles, rhonchi, respiratory distress Cardiovascular: tachycardia, irregularly irregular Peripheral Pulses: 2+ radial (R) Gastrointestinal: normal bowel sounds, soft, non-tender Extremities: pedal edema Neurologic/Psych: awake, oriented x 3 Skin: intact, normal color Core Measures ACS in differential dx? No CVA/TIA Diagnosis No Sepsis Present: No Sepsis Focused Exam Completed? No (Jaziel Knight) Progress Differential Diagnosis: asthma, AMI, bronchitis, costochondritis, CHF, COPD, musculoskeletal pain, pericarditis, pulmonary embolism, pneumonia, pneumothorax, unstable angina Plan of Care: Orders Procedure Date/time Status Consistent Carbohydrate 2 04/27 B Active CBC WITHOUT DIFFERENTIAL 04/27 0500 Active BASIC ELECTROLYTES PLUS BUN&CR 04/27 0500 Active TROPONIN LEVEL 04/27 0100 Active EKG 04/27 0100 Active Heart Healthy Diet 04/26 D Complete LACTIC ACID 04/26 1945 Active TROPONIN LEVEL 04/26 1900 Complete EKG 04/26 1900 Active SPECIMEN TO BE OBTAINED 04/26 1856 Active Lab Add-on Test 04/26 1634 Active Pathway - chart 04/26 1613 Active House Staff 04/26 1613 Active Patient Data 04/26 1605 Active VITAL CAPACITY MONITORING 04/26 1455 Active ED Holding Orders 04/26 1455 Active Admit to inpatient 04/26 1455 Active Code Status 04/26 1455 Active LACTIC ACID 04/26 1447 Complete STREP PNEUMO URINARY ANTIGEN 04/26 1425 Complete VIRAL CULTURE 04/26 1355 Active Mishra, Insertion/Removal/Asses 04/26 1334 Active CULTURE,URINE 04/26 1334 Active URINALYSIS 04/26 1334 Complete RAPID VIRAL INFLUENZA A 04/26 1333 Complete PHOSPHORUS 04/26 1305 Complete MAGNESIUM 04/26 1305 Complete Intake & Output 04/26 1156 Active LACTIC ACID 04/26 1147 Complete ARTERIAL BLOOD GAS (GEN) 04/26 1146 Complete Telemetry/Supervisor Epoxy Fabrication 04/26 1146 Active LOWER RESPIRATORY CULTURE 04/26 1146 Active BLOOD CULTURE 04/26 1146 Active THYROID STIMULATING HORMONE 04/26 1146 Complete TROPONIN LEVEL 04/26 1146 Complete FREE T4 04/26 1146 Complete D-DIMER 04/26 1146 Complete COMPREHENSIVE METABOLIC PANEL 04/26 1146 Complete CBC WITHOUT DIFFERENTIAL 04/26 1146 Complete B-TYPE NATRIURETIC PEP (BNP) 04/26 1146 Complete EKG 04/26 1135 Active ARTERIAL BLOOD GAS (GEN) 04/26 UNK Active Lab Add-on Test 04/26 UNK Active VTE Mechanical Prophylaxis 04/26 UNK Active FingerStick- Glucose 04/26 UNK Active PHARMACY COMMUNICATION FORM 04/26 UNK Active Current Medications Sig/Jonel Start time Last Medication Dose Stop Time Status Admin Atorvastatin Calcium 10 MG 1700 04/27 1700 AC (Lipitor) Vancomycin HCl 1,000 MG 1600 04/27 1600 AC Dextrose/Water 250 ML (D5W) Cholecalciferol 2,000 IU DAILY 04/27 1000 AC (Vitamin D) Oseltamivir Phosphate 30 MG BID 04/27 1000 AC (Tamiflu) 05/01 2201 Insulin Aspart 0 TIDAC 04/27 0800 AC (NovoLOG) Ceftazidime 1,000 MG 0400,1600 04/27 0400 AC (Fortaz) Apixaban 5 MG BID 04/26 2200 AC (Eliquis) Diltiazem HCl 60 MG TID 04/26 2200 AC (Cardizem) Metoprolol Tartrate 25 MG BID 04/26 2200 AC (Lopressor) Diclofenac Sodium 1 JC 4 TIMES/DAY PRN 04/26 1830 AC (Voltaren 1% Gel) Laboratory Tests 04/26/17 1908: Troponin I 0.04 04/26/17 1645: Lactic Acid 3.2 H 04/26/17 1425: Urine Color YEL, Urine Clarity HAZY H, Urine pH 6.0, Ur Specific [place] 1.015, Urine Protein NEG, Urine Ketones NEG, Urine Nitrite NEG, Urine Bilirubin NEG, Urine Urobilinogen 0.2, Ur Leukocyte Esterase LARGE H, Ur Microscopic SEDIMENT EXAMINED, Urine RBC FEW H, Urine WBC 25-50 H, Ur Epithelial Cells MANY H, Urine Bacteria FEW H, Micro UA Comment [place] H, Urine Hemoglobin TRACE -INTACT, Urine Glucose NEG 04/26/17 1355: Virus Culture Pending 04/26/17 1305: Lactic Acid 4.3 H 04/26/17 1305: Anion Gap 15, Estimated GFR 53 L, BUN/Creatinine Ratio 34.0 H, Glucose 231 H, Calcium 8.7, Phosphorus 3.8, Magnesium 1.7, Total Bilirubin 0.5, AST 36, ALT 38, Alkaline Phosphatase 81, Troponin I 0.03, [id number] Pept 42709 H, Total Protein 7.5, Albumin 3.8, Globulin 3.7, Albumin/Globulin Ratio 1.0 L, TSH 0.921 , Free T4 2.70 H, D-Dimer High Sensitivty 359 H, CBC w Diff MAN DIFF ORDERED, RBC 3.52 L, MCV 91.1, MCH 29.1, MCHC 32.0 L, RDW 14.4, MPV 7.7, Gran % 89.7 H , Lymphocytes % 6.1 L, Monocytes % 4.2, Eosinophils % 0, Basophils % 0, Absolute Granulocytes 16.9 H, Segmented Neutrophils 86 H, Band Neutrophils 3, Absolute Lymphocytes 1.1 L, Lymphocytes 9 L, Monocytes 2, Absolute Monocytes 0.8 H, Absolute Eosinophils 0, Absolute Basophils 0, Platelet Estimate VERIFIED BY SMEAR, Hypochromic-Microcytic 1+, Anisocytosis 1+ 04/26/17 1200: pH 7.30 *L, pCO2 55 H, pO2 373 H, HCO3 27, ABG O2 Sat (Measured) 99.0, P-50 ( Temp Corrected) YES, Carboxyhemoglobin 0.2 L, O2 Concentration % 100%, Temperature 96.8 L, O2 Delivery Method NRB, Phlebotomy Draw Site RIGHT RADIAL Microbiology 04/26 1425 URINE ROUT: Streptococcus pneumoniae Antigen (M - COMP 04/26 1355 NASOPHARYN: Influenza Virus A & B Rapid Smear - COMP INFLUENZA TYPE B 04/26 1325 URINE ROUT: Urine Culture - RECD 04/26 1320 BLOOD: Blood Culture - RECD 04/26 1305 BLOOD: Blood Culture - RECD 04/26 1146 LOWER RESP: Respiratory Culture - ORD 04/26 1146 LOWER RESP: Gram Stain - ORD Initially patient was noted to be 100% on CPAP and due severe COPD and ILD that the CPAP was weaned off patient then one on 5 L of nasal cannula however hypoxia still continued patient then was placed with 100% nonrebreather responded to 99% ABG will be obtained 1230- patient was reevaluated and currently resting comfortably 4 L nonrebreather 100% Patient has significant improvement of dyspnea ABG shows critical findings of respiratory acidosis Patient was reevaluated on multiple occasions and had improvement of her respiratory failure Patient was administered Lasix due to concerns of CHF and Solu-Medrol due to concerns of COPD on initial presentation, patient does have concerns a positive influenza and pneumonia and which due to patient's significant and critical presentation of respiratory failure at that and observation and 48 hour turnaround for patient's presentation would be unlikely and inflammation would be more warranted for patient's presentation and diagnosis. Discussed admission with patient was aware DR. REID DISCUSSED ADMISSION WITH HOSPITALIST. Diagnostic Imaging: Viewed by Me: Radiology Read, CT Scan. Radiology Impression: SEE COMMENTS Initial ED EKG: AFIB (115 lbbb) Prior EKG: unchanged Comments: PATIENT: VINCENT DRUMMOND PRESENT AGE: 81 PATIENT ACCOUNT NO: [id number] : 35 LOCATION: [facility] ORDERING PHYSICIAN: Jaziel CRUZ SERVICE DATE: 04/26/17 EXAM TYPE: RAD - XRY-PORTABLE CHEST XRAY EXAMINATION: XR PORTABLE CHEST CLINICAL INFORMATION: Shortness of breath COMPARISON: CXR from 04/09/2017 and 04/22/2017 TECHNIQUE: Portable frontal view of the chest was obtained. FINDINGS: Again noted is cardiomegaly and persistent interstitial thickening in both lungs. The interstitial process appears worse compared to 04/09/2017 and similar to slightly worse compared to 04/22/2017. There is a trace right pleural effusion. A suture line from prior wedge resection is seen in the right upper lobe. The volume loss of the right hemithorax is associated with mild elevation of the right diaphragm. There is pulmonary emphysema. The visualized thoracolumbar spinal fusion hardware is intact. There are no acute skeletal findings. Cholecystectomy clips in the right upper quadrant of the abdomen. IMPRESSION: Cardiomegaly and persistent increased interstitial opacity in both lungs, likely representing interstitial edema, with trace right pleural effusion. DICTATED BY: Hans Bravo MD DATE/TIME DICTATED:04/26/17 / 1231 (Jaziel Knight) Departure Departure Disposition: STILL A PATIENT Condition: Fair Clinical Impression Primary Impression: Respiratory failure Secondary Impressions: CHF (congestive heart failure), COPD (chronic obstructive pulmonary disease), Influenza B, Pneumonia Referrals: Westley Ibrahim MD (PCP/Family) Departure Forms: Customer Survey General Discharge Information Admission Note Spoke With: Sindhu Garcia MD Documentation of Exam: Documentation of any treatments & extenuating circumstances including Concerns Regarding Discharge (functional status, medication knowledge or non-compliance, living conditions, etc.) that warrant an admission rather than observation: [ Patient requires pulmonary consultation repeat nebulizers IV steroids IV antibiotics and antitussives, CARDIOLOGY consultation] (Jaziel Knight) PA/PIPING DRAFTER Co-Sign Statement Statement: ED Attending supervision documentation- [X] I saw and evaluated the patient. I have also reviewed all the pertinent lab results and diagnostic results. I agree with the findings and the plan of care as documented in the PA's/PIPING DRAFTER's documentation. [] I have reviewed the ED Record and agree with the PA's/PIPING DRAFTER's documentation. [] Additions or exceptions (if any) to the PAs/PIPING DRAFTER's note and plan are summarized below: [] (Edwin MALDONADO,Dell Ruggiero) Critical Care Note Critical Care Note Critical Care Time: 30-74 min (Jaziel Knight)
--- NOTE | 2017-04-26 12:40 | RADIOLOGY REPORT ---
EXAMINATION: XR PORTABLE CHEST CLINICAL INFORMATION: Shortness of breath COMPARISON: CXR from 04/09/2017 and 04/22/2017 TECHNIQUE: Portable frontal view of the chest was obtained. FINDINGS: Again noted is cardiomegaly and persistent interstitial thickening in both lungs. The interstitial process appears worse compared to 04/09/2017 and similar to slightly worse compared to 04/22/2017. There is a trace right pleural effusion. A suture line from prior wedge resection is seen in the right upper lobe. The volume loss of the right hemithorax is associated with mild elevation of the right diaphragm. There is pulmonary emphysema. The visualized thoracolumbar spinal fusion hardware is intact. There are no acute skeletal findings. Cholecystectomy clips in the right upper quadrant of the abdomen. IMPRESSION: Cardiomegaly and persistent increased interstitial opacity in both lungs, likely representing interstitial edema, with trace right pleural effusion.
[2017-04-26 13:27] LABS: ABSOLUTE BASOPHIL COUNT 0 /CUMM (0.0-0.2); ABSOLUTE EOSINOPHIL COUNT 0 /CUMM (0.0-0.7); ABSOLUTE GRANULOCYTE CT 16.9 /CUMM (1.4-6.5); BASOPHIL % 0 % (0.0-2.0); MEAN PLATELET VOLUME 7.7 FL (7.4-10.4)
[2017-04-26 13:30] LABS: ABSOLUTE LYMPH COUNT 1.1 /CUMM (1.2-3.4); ABSOLUTE MONOCYTE COUNT 0.8 /CUMM (0.10-0.60); EOSINOPHIL % 0 % (0-5); GRANULOCYTE % 89.7 % (42.2-75.2); HEMATOCRIT 32.1 % (37-47); MEAN CORPUSCULAR HGB 29.1 PG (27.0-31.0); MEAN CORPUSCULAR VOLUME 91.1 FL (81.0-99.0); PLATELET COUNT 485 /CUMM (130-400); RBC DISTRIBUTION WIDTH 14.4 % (11.5-14.5); RED BLOOD CELL CT 3.52 /CUMM (4.20-5.40)
[2017-04-26 13:39] LABS: WHITE BLOOD CELL COUNT 18.8 /CUMM (4.8-10.8)
--- NOTE | 2017-04-26 14:48 | CT SCAN REPORT ---
EXAMINATION: CT ANGIOGRAM OF THE CHEST WITH CONTRAST (CT PULMONARY ANGIOGRAM FOR PE) CLINICAL INFORMATION: Shortness of breath. COMPARISON: 04/19/2017 TECHNIQUE: Prior to contrast administration, noncontrast localization images were obtained. Subsequently, multidetector volumetric imaging was performed from the thoracic inlet to below the diaphragms following the administration of 95 mL Optiray 320 intravenous contrast. No contrast reaction reported. Sagittal, coronal, and MIP oblique sagittal reformatted images were obtained on the CT workstation, uploaded to PACS, and reviewed. Total exam dose-length product 411 mGy-cm FINDINGS: QUALITY OF STUDY/CONTRAST BOLUS: Satisfactory. PULMONARY ARTERIES: Pulmonary arteries are normal in size. No embolic filling defects are identified within the main, lobar or segmental vessels. THORACIC AORTA: There is atherosclerotic calcification of the thoracic aorta without aneurysm or dissection. Note that there is suboptimal opacification of the lumen of the aorta for this examination in which the contrast bolus was timed for the pulmonary arteries. The atherosclerotic plaque of the proximal left subclavian artery appears to produce severe luminal stenosis. LUNGS AND PLEURA: Again noted are surgical changes from right upper lobectomy, pulmonary emphysema, thickening of peribronchial interstitium and interlobular septa, and mosaic appearance of lungs with scattered patchy opacities, including groundglass opacities. Small pleural effusions have decreased in size compared to 04/19/2017. Again the pulmonary findings could reflect presence of cardiogenic edema, although the possibility of a superimposed pneumonia must be considered. There are increased patchy opacities in the left upper lobe and both lower lobes compared to 04/19/2017. Some of the new patchy opacities have a nodular and/or consolidated appearance, suspicious for pneumonia. MEDIASTINUM: Atherosclerotic calcifications of coronary arteries, calcified mitral valve annulus, and cardiomegaly with mild left atrial enlargement and left ventricular wall hypertrophy. No pericardial effusion. No evidence of septal bowing. The esophagus is unremarkable. The thyroid gland is not identified. LYMPHATICS: Again noted are mildly enlarged mediastinal lymph nodes, unchanged. UPPER ABDOMEN: There is contrast reflux into the intrahepatic segment of the inferior vena cava. 3.5 cm cortical cyst of the upper pole the right kidney has a simple appearance and is partially included in the [id number]. There is chronic, mild enlargement of left adrenal gland from mild hyperplasia or adenoma. Atherosclerotic calcification of the visualized abdominal aorta, renal arteries and branches of the splenic artery. OSSEOUS STRUCTURES: No new skeletal findings compared to the recent exam of 04/19/2017. IMPRESSION: 1. No pulmonary embolism. 2. Atherosclerotic disease of coronary arteries, cardiomegaly, persistent interstitial edema and small pleural effusions. The pleural effusions have decreased in size compared to 04/19/2017. 3. Interval worsening of patchy opacity in the left upper lobe and lower lobes, suspicious for pneumonia.
--- NOTE | 2017-04-26 15:49 | History & Physical ---
Iris VENCES,[facility] 04/26/17 1548: General Information and [facility] MD Statement: I have seen and personally examined VINCENT DRUMMOND and documented this H&P. The patient is a 81 year old F who presented with a patient stated chief complaint of [shortness of breath]. Source of Information: patient Exam Limitations: no limitations History of Present Illness: Patient is 81-year-old female with past medical history significant for paraplegia secondary to spinal cord injury, diabetes, paroxysmal atrial fibrillation on anticoagulation, CAD status post [place] status post stent placement, heart failure with preserved ejection fraction, COPD on 2 L home oxygen, interstitial lung disease, lung cancer status post right upper lobe resection, history of colon cancer status post sigmoid resection and Gem's thyroiditis, recent admission at [facility] was discharged on April 20 treated for atrial fibrillation with RVR and urinary tract infection came in with chief complaint of acute shortness of breath since today morning. Apparently patient was in her usual state of health until today morning, she developed severe increasing shortness of breath not relieved by oxygen. Her daughter called EMS immediately. When the EMS arrived patient was on 6 L of oxygen through nasal cannula. Her saturation was 80s, was given DuoNeb and eventually was put on CPAP [on arrival to [facility] CPAP was removed and was placed on nonrebreather at 15 L of oxygen with a saturation of 100%]. Patient was also in A. fib with RVR and 15 mg of Cardizem IV was given during the same time at home. Patient still complained of severe short of breath after placing her on CPAP. According to the patient she cough with sputum production for the past 3 weeks which was getting better while she was discharge from [facility] 6 days ago. But the cough and sputum production didn't subside over the past week. She denies chest pain, chest pressure, nausea, vomiting, dizziness, fever, chills, Loss of consciousness, fall, abdominal pain, hematuria , diarrhea, constipation, altered since patient. Patient is usually straight catheterized every 3 hours. Mishra has been inserted earlier today. Patient was recently admitted in [facility] for atrial fibrillation with RVR and was treated for urinary tract infection with ceftriaxone. Allergies/Medications Allergies: Coded Allergies: amlodipine (Severe, C/P 05/27/16) codeine (Severe, C/P 05/27/16) morphine (Severe, C/P 05/27/16) omeprazole (Severe, C/P 05/27/16) Home Med list Apixaban (Eliquis) 5 MG TABLET 5 MG PO BID afib . Atorvastatin Calcium 10 MG TABLET 1 TAB PO DAILY CHOLESTEROL (Reported) Budesonide/Formoterol Fumarate (Symbicort 160-4.5 Mcg Inhaler) 160 MCG-4.5 MCG/ ACTUATION HFA.AER.AD 2 PUF INH BID copd Cholecalciferol (Vitamin D3) (Vitamin D) 2,000 UNIT CAPSULE 1 CAP PO DAILY SUPPLEMENT (Reported) Diclofenac Sodium (Voltaren) 1 % GEL..GRAM. 1 GM TOP 4 TIMES/DAY Shoulder pain apply to affected area(s) Diltiazem HCl (Cardizem) 60 MG TABLET 60 MG PO TID A. fib Furosemide 20 MG TABLET 60 MG PO DAILY DIURETIC Levothyroxine Sodium (Synthroid) 88 MCG TABLET 1 TAB PO DAILY THYROID PROBLEMS Lorazepam (Ativan) 0.5 MG TABLET 1 TAB PO Q6-8H PRN ANXIETY (Reported) Losartan Potassium (Cozaar) 25 MG TABLET 1 TAB PO DAILY blood pressure control Metformin HCl 500 MG TABLET 1 TAB PO DAILY DM (Reported) Metoprolol Tartrate 25 MG TABLET 1 TAB PO BID HEART HEALTH Prednisone 10 MG TABLET 4 TAB PO DAILY COPD .4 tab x1 day,then 3 tab daily x 2 days then 2 tab a day for 2 days then 1 tab for 2 days then stop Compliance With Home Meds: GOOD Past History Travel History Traveled to [place] past 21 day No Medical History Neurological: paraplegia status post spine fx/fall intention tremor EENT: epistaxis Cardiovascular: AFIB (PAF), CAD (s/p stent to RCA vs PTCA), CHF, hypertension, hyperlipidemia, myocardial infarction Respiratory: COPD, interstitial lung disease, LUNG CA RUL LOBECTOMY O2 DEPENDENT 2-3L Gastrointestinal: lactose intolerance, [id number], SIGMOID COLECTOMY 02/13 colonoscopy fair prep - tics but no polyps 02/13- egd gastritis DIVERTICULOSIS COLI Hepatic: NONE Renal: urinary incontinence Musculoskeletal: chronic back pain (post fall), degen joint disease, BROKEN BACK 15 YEARS AGO UNABLE TO BEAR WEIGHT Psychiatric: anxiety Endocrine: diabetes, hypothyroidism Blood Disorders: NONE (chronic), anemia Cancer(s): lung cancer (s/p RUL lobectomy SC Ca), AdenoCa in situ- sigmoid resection 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 , Age 70. FHx: stomach cancer FATHER ("some type of Ca"- not colon Ca). , Age 63. FH: cancer BROTHER FH: prostate cancer Psychosocial History Who Do You Live With? child, SHE LIVES WITH HER DAUGHTER Services at Home: Nursing, Oxygen Primary Language: Greenlandic ETOH Use: denies use Illicit Drug Use: denies illicit drug use Living Will? yes Power of Breed To Wean Production Technician/HCP? yes Name of POA/HCP: Pt's sonConstantino Functional Ability ADLs Needs Assist: dressing, eating, toileting, bathing. Ambulation: non-ambulatory (W/C) IADLs Needs Assist: shopping, housework, finances, food prep, telephone, transportation, medication admin. Review of Systems Review of Systems Constitutional: Reports: weakness. EENTM: Reports: no symptoms. Cardiovascular: Reports: no symptoms. Respiratory: Reports: cough, short of breath, sputum production. GI: Reports: no symptoms. Genitourinary: Reports: no symptoms. Musculoskeletal: Reports: no symptoms. Skin: Reports: no symptoms. Neurological/Psychological: Reports: no symptoms. Hematologic/Endocrine: Reports: no symptoms. Exam & Diagnostic Data Last 24 Hrs of Vital Signs/I&O Vital Signs Date Time Temp Pulse Resp B/P B/P Pulse O2 O2 Flow FiO2 Mean Ox Delivery Rate 04/26 1605 100 Nasal 4.0L Cannula 04/26 1603 97.8 82 24 126/66 100 Nasal 4.0L Cannula 04/26 1330 86 26 126/66 96 Nasal 4.0L Cannula 04/26 1217 87 26 174/71 100 Part 10L ReBreather 04/26 1202 100 Part 10L ReBreather 04/26 1150 96.8 172/68 Intake & Output 04/26 1600 04/26 0800 04/26 0000 Intake Total 0 Output Total Balance 0 Intake, Oral 0 Patient 142 lb Weight Weight Reported by Patient Measurement Method Physical Exam General Appearance Alert, Oriented X3, Cooperative, Moderate Distress Skin No Rashes Skin Temp/Moisture Exam: Warm/Dry HEENT PERRLA, EOMI, Mucous Membr. moist/pink Cardiovascular Normal S1, Normal S2, No Murmurs Lungs b/l expiratory wheeze,basal crackles Abdomen Normal Bowel Sounds, Soft, No Tenderness Neurological Strength at 5/5 X4 Ext Last 24 Hrs of Labs/Twan: Laboratory Tests 04/26/17 1425: Urine Color YEL, Urine Clarity HAZY H, Urine pH 6.0, Ur Specific [place] 1.015, Urine Protein NEG, Urine Ketones NEG, Urine Nitrite NEG, Urine Bilirubin NEG, Urine Urobilinogen 0.2, Ur Leukocyte Esterase LARGE H, Ur Microscopic SEDIMENT EXAMINED, Urine RBC FEW H, Urine WBC 25-50 H, Ur Epithelial Cells MANY H, Urine Bacteria FEW H, Micro UA Comment BUDDING YEAST H, Urine Hemoglobin TRACE -INTACT, Urine Glucose NEG 04/26/17 1355: Virus Culture Pending 04/26/17 1305: Lactic Acid 4.3 H 04/26/17 1305: Anion Gap 15, Estimated GFR 53 L, BUN/Creatinine Ratio 34.0 H, Glucose 231 H, Calcium 8.7, Phosphorus 3.8, Magnesium 1.7, Total Bilirubin 0.5, AST 36, ALT 38, Alkaline Phosphatase 81, Troponin I 0.03, Edp-X-Fxiogmporgh Pept 97653 H, Total Protein 7.5, Albumin 3.8, Globulin 3.7, Albumin/Globulin Ratio 1.0 L, TSH 0.921 , Free T4 2.70 H, D-Dimer High Sensitivty 359 H, CBC w Diff MAN DIFF ORDERED, RBC 3.52 L, MCV 91.1, MCH 29.1, MCHC 32.0 L, RDW 14.4, MPV 7.7, Gran % 89.7 H , Lymphocytes % 6.1 L, Monocytes % 4.2, Eosinophils % 0, Basophils % 0, Absolute Granulocytes 16.9 H, Segmented Neutrophils 86 H, Band Neutrophils 3, Absolute Lymphocytes 1.1 L, Lymphocytes 9 L, Monocytes 2, Absolute Monocytes 0.8 H, Absolute Eosinophils 0, Absolute Basophils 0, Platelet Estimate VERIFIED BY SMEAR, Hypochromic-Microcytic 1+, Anisocytosis 1+ 04/26/17 1200: pH 7.30 *L, pCO2 55 H, pO2 373 H, HCO3 27, ABG O2 Sat (Measured) 99.0, P-50 ( Temp Corrected) YES, Carboxyhemoglobin 0.2 L, O2 Concentration % 100%, Temperature 96.8 L, O2 Delivery Method NRB, Phlebotomy Draw Site RIGHT RADIAL Microbiology 04/26 1355 NASOPHARYN: Influenza Virus A & B Rapid Smear - COMP INFLUENZA TYPE B 04/26 1325 URINE ROUT: Urine Culture - RECD 04/26 1320 BLOOD: Blood Culture - RECD 04/26 1305 BLOOD: Blood Culture - RECD 04/26 1146 LOWER RESP: Respiratory Culture - ORD 04/26 1146 LOWER RESP: Gram Stain - ORD Diagnostic Data EKG Results Atrial fibrillation CXR Results Cardiomegaly and persistent increased interstitial opacity in both lungs, likely representing interstitial edema, with trace right pleural effusion. Other Results Chest CT 1. No pulmonary embolism. 2. Atherosclerotic disease of coronary arteries, cardiomegaly, persistent interstitial edema and small pleural effusions. The pleural effusions have decreased in size compared to 04/19/2017. 3. Interval worsening of patchy opacity in the left upper lobe and lower lobes, suspicious for pneumonia. Assessment/Plan Assessment: Patient is 81-year-old female with past medical history significant for paraplegia secondary to spinal cord injury, diabetes, paroxysmal atrial fibrillation on anticoagulation, CAD status post [place] status post stent placement, heart failure with preserved ejection fraction, COPD on 2 L home oxygen, interstitial lung disease, lung cancer status post right upper lobe resection, history of colon cancer status post sigmoid resection and Gem's thyroiditis, recent admission at [facility] was discharged on April 20 treated for atrial fibrillation with RVR and urinary tract infection came in with chief complaint of acute shortness of breath since today morning found to be in respiratory failure, admitted to telemetry for continuous monitoring. Vitals Temperature 97.8, pulse rate 82, respiratory rate 24, blood pressure 126/66, on 4 L nasal cannula. Labs WBC 18.8, hemoglobin 10.3, hematocrit 32.1, platelets 485, 3 bands neutrophils, sodium 137, potassium 3.5, anion gap 15, carbon dioxide 32, BUNs 34, creatinine 1, 4.3, proBNP 21,000, free T4 2 0.7, TSH 0.921. influ - positive. Assessment and plan 1. Acute hypoxic hypercarbic respiratory failure -etiology probably healthcare associated pneumonia with underlying interstitial lung disease and COPD. 2. Urinary tract infection 3. Atrial fibrillation with RVR 4. Hypertension/diabetes/hyperlipidemia/Gem thyroiditis 1. Acute hypoxic hypercarbic respiratory failure -etiology probably healthcare associated pneumonia with underlying interstitial lung disease and COPD. Patient is on 4 L of oxygen through nasal cannula. We will repeat ABG if significantly hypoxic. We will start her on ceftazidime and vancomycin for HCAP pneumonia covering gram-positive/gram-negative/Pseudomonas/MRSA. TRC nebulization. Patient is influenza positive. We will start her on Tamiflu 70 mg twice a day. Continuous pulse oximetry. We will trend lactic acid. We will trend troponins and EKG. Pulmonology consult in a.m. if needed. Patient has leukocytosis which can be secondary to prednisone. We will continue her Lasix. 2. Urinary tract infection Patient was recently treated for E coli UTI with ceftriaxone. Urine analysis today shows leukoesterase positive with WBC. We will do urine culture. Patient is on Mishra catheter. 3. Atrial fibrillation with rapid ventricular rate Patient was given Cardizem 15 mg at home by the EMS. Her heart rate is 82. We will continue our Eliquis and by mouth Cardizem. 4. Gem thyroiditis Patient is on levothyroxin 88 g with the high free T4 of 2.7. We can reduce the dose to 75 g which can be contributing to her A. fib with RVR. 5. Diabetes Patient is on metformin. We will hold metformin for now and start her on NovoLog sliding scale insulin. Accu-Cheks. 6. Coronary artery disease Continue atorvastatin and metoprolol Code-full code DVT prophylaxis As Ranked By This Provider Problem List: 1. Atrial fibrillation 2. CONGESTIVE HEART FAILURE 3. UTI (lower urinary tract infection) 4. Atrial fibrillation with RVR 5. Pneumonia 6. Diabetes 7. COPD (chronic obstructive pulmonary disease) 8. Acute respiratory failure with hypoxia and hypercarbia Core Measures/Misc (12/17) Acute Coronary Syndrome ACS Diagnosis: No Congestive Heart Failure Congestive Heart Failure Diagnosis No Cerebrovascular Accident CVA/TIA Diagnosis: No VTE (View Protocol) VTE Risk Factors Age>40 No Mechanical VTE Prophylaxis d/t Other No VTE Pharm Prophylaxis d/t Other Sepsis (View protocol) Sepsis Present: No Candido VENCES,Jon 04/26/17 1747: Resident Review Statement Resident Statement: examined this patient, discussed with senior insight manager international, agreed with senior insight manager international Other Findings: Patient is 81-year-old female with past medical history significant for paraplegia secondary to spinal cord injury, diabetes, paroxysmal atrial fibrillation on anticoagulation, CAD status post [place] status post stent placement, heart failure with preserved ejection fraction, COPD on 2 L home oxygen, interstitial lung disease, lung cancer status post right upper lobe resection, history of colon cancer status post sigmoid resection and Gem's thyroiditis, spinal code injury with residual paralysis, recent multiple admission at [facility] in this month for afib, acute on chronic hypoc resp failure (last discharged on April 20) is BIBA for complaint of worsening shortness of breath. EMS reports indicates that the patient was found to be in RVR and Cardizem 15 mg IV was administered, O2 sats were reported as 82% and was subsequently given nebulizer treatment which was still refractory and had to be placed on CPAP before being presented at [facility]. Patient endorses a productive cough, and generalized malais. Denies any chest pain, palpitation, fever, chills, cough, sick contacts or recent travel, abdominal pain or dysuria. Assessment This is a 81-year-old lady with multiple comorbidities including CAD status post [place] stent placement,HFPrEF, paroxysmal A. fib on anticoagulation, diabetes COPD on 2 L home oxygen, ILD, lung carcinoma status post right upper lobe resection, presents with acute hypoxic hypercarbic respiratory failure in the setting of positive flu test and radiological findings suggestive of PNA. Impression * Acute on chronic hypoxic hypercarbic respiratory failure. This is evident by the O2 sats of 82% (charted on the field by EMS) and an ABG remarkable for CO2 of 55 and a pH of 7.3. Patient has multiple comorbidities that predisposes him hypoxia and hypercarbia (history of COPD, hypothyroidism, lung resection, and CHF). * HCAP. Given the acute respiratory symptoms including cough and sputum production, hypoxia and CT chest suggestive of pneumonia,superimposed influenza , recent multiple hospitalization within this month and recent IV antibiotic use , MRSA and gram negative coverage is warranted. * Influenza. Positive flu test with clinical symptoms of respiratory distress. Even though her symptoms might have been progressively worsening and more than 48-72 hours, given the high-risk respiratory and cardiac comorbidities and multiple recent hospitalization, treatment with an antiviral agent is justified. * Acute onset of rapid ventricular rate with history of chronic A. fib. Her rapid heart rate could be secondary to infection as evident by positive flu test and x-ray suggestive of pneumonia. However given the laboratory finding of elevated free T4 with normal TSH in a patient taking levothyroxine it is very possible that her acute onset of rapid heart rate is from a super optimal levothyroxine dose. * Hyperlactetemia. Even though patient does have infection, her hyperlactetemia is most probably secondary to hypoxia rather than sepsis (levels are downtrending after 02 supplementation and skin sepsis exam is unremarkable). The acidosis indicated by a pH of 7.3 is more indicative of respiratory acidosis in the setting of hypercabia (co2 of 55). * Leukocytosis. Can be due to infectious etiology, however in the context of recent prednisone use we cannot rule out stress demargination as the possible explanation of leukocytosis. * Positive UA for wbc and rafaela. It should be noted patient is afebrile with no urinary symptom. Patient uses straight cath protocol at home which puts her at increased risk for UTIs and she has had recent UTI infection. In the absence of immunocompromised state or dissemination, urine candidaisis does not warrant treatment, neither does asymptomatic bacterial UTI. * History of chronic diseases: CAD, CHF, COPD, ILD, Gem thyroiditis Plan Admit to telemetry for continues pulse ox monitoring and close cardiac monitoring Continue O2 supplementation to keep sats above 88% Will repeat ABG Trend troponin 2 more times and EKG to rule out ACS Status post 15mg IV cardizem, no need for any IV av gurpreet blockers. Will continue with current home regimen of AV gurpreet blockers with a target rate of less than 110 for afib rate control Decrease levothyroxine from 88 g to 75 g in the setting of free elevated T4 Continue apixaban 5 mg bid Daily BEP, Mag and Phos labs.Replenish electrolytes with goal of Potassium>4 and mag>2. Ceftaz and vancomycin for HCAP Obtain sputum cultures and urine strep and Legionella Follow-up blood cultures follow up urine culture Accuc checks tid/hs Novolog SSC DVT PPX: addressed by NOAC use Code: REID Garcia MD,Sindhu 04/26/17 1852: Attending MD Review Statement Attending Statement Attending MD Statement: examined this patient, discuss w/resident/PA/PBX REPAIRER, agreed w/resident/PA/PBX REPAIRER, reviewed EMR data (avail), discussed with nursing, reviewed images, amended to note Attending Assessment/Plan: 81 y/o F with pmh sig for paraplegia secondary to spinal cord injury, diabetes, paroxysmal A. fib, coronary artery disease, chronic diastolic CHF, chronic respiratory failure and oxygen dependent COPD, interstitial lung disease, history of lung cancer status post right upper lobe resection with recent admission to [facility] with rapid A. fib, UTI now admitted with shortness of breath, dyspnea on exertion and found to have infiltrate on lung imaging as well as influenza B+. Patient claims that she has been feeling short of breath with productive cough since one day prior to admission. Patient was found to be hypoxic on arrival. She was on CPAP. Required 100% nonrebreather initially which was then tapered down. Patient was started on broad-spectrum antibiotics, nebs as well as Tamiflu. Vital Signs Date Time Temp Pulse Resp B/P B/P Pulse O2 O2 Flow FiO2 Mean Ox Delivery Rate 04/26 1605 100 Nasal 4.0L Cannula 04/26 1603 97.8 82 24 126/66 100 Nasal 4.0L Cannula 04/26 1330 86 26 126/66 96 Nasal 4.0L Cannula 04/26 1217 87 26 174/71 100 Part 10L ReBreather 04/26 1202 100 Part 10L ReBreather 04/26 1150 96.8 172/68 on exam; aox3, nad. cv; s1,s2, irregular. resp; + course crackles, scattered wheeze b/l abd; soft, nt, bs+ ext; no edema. Laboratory Tests 04/26 04/26 04/26 1645 1425 1355 Chemistry Lactic Acid (0.7 - 2.1 mmol/L) 3.2 H Serology Virus Culture Pending Urines Urine Color (YEL,AMB,STR) YEL Urine Clarity (CLEAR) HAZY H Urine pH (5.0 - 8.0) 6.0 Ur Specific [place] (1.001 - 1.035) 1.015 Urine Protein (NEG,<30 MG/DL) NEG Urine Ketones (NEG) NEG Urine Nitrite (NEG) NEG Urine Bilirubin (NEG) NEG Urine Urobilinogen (0.1 - 1.0 EU/dl) 0.2 Ur Leukocyte Esterase (NEG) LARGE H Ur Microscopic SEDIMENT EXAMINED Urine RBC (0 - 5 /HPF) FEW H Urine WBC (0 - 2 /HPF) 25-50 H Ur Epithelial Cells (NONE,FEW) MANY H Urine Bacteria (NEG/NONE) FEW H Micro UA Comment BUDDING YEAST H Urine Hemoglobin (NEG) TRACE-INTACT Urine Glucose (N MG/DL) NEG 04/26 04/26 1305 1305 Chemistry Sodium (137 - 145 mmol/L) 137 Potassium (3.5 - 5.1 mmol/L) 3.5 Chloride (98 - 107 mmol/L) 89 L Carbon Dioxide (22 - 30 mmol/L) 32 H Anion Gap (5 - 16) 15 BUN (7 - 17 mg/dL) 34 H Creatinine (0.5 - 1.0 mg/dL) 1.0 Estimated GFR (>60 ml/min) 53 L BUN/Creatinine Ratio (7 - 25 %) 34.0 H Glucose (65 - 99 mg/dL) 231 H Lactic Acid (0.7 - 2.1 mmol/L) 4.3 H Calcium (8.4 - 10.2 mg/dL) 8.7 Phosphorus (2.5 - 4.5 mg/dL) 3.8 Magnesium (1.6 - 2.3 mg/dL) 1.7 Total Bilirubin (0.2 - 1.3 mg/dL) 0.5 AST (14 - 36 U/L) 36 ALT (9 - 52 U/L) 38 Alkaline Phosphatase (<127 U/L) 81 Troponin I (< 0.11 ng/ml) 0.03 Tgj-S-Vmulwtcolxd Pept (<125 pg/mL) 36122 H Total Protein (6.3 - 8.2 g/dL) 7.5 Albumin (3.5 - 5.0 g/dL) 3.8 Globulin (1.9 - 4.2 gm/dL) 3.7 Albumin/Globulin Ratio (1.1 - 2.2 %) 1.0 L TSH (0.270 - 4.200 uIU/mL) 0.921 Free T4 (0.85 - 1.93 ng/dL) 2.70 H Coagulation D-Dimer High Sensitivty (0 - 243 ng/ml) 359 H Hematology CBC w Diff MAN DIFF ORDERED WBC (4.8 - 10.8 /CUMM) 18.8 H RBC (4.20 - 5.40 /CUMM) 3.52 L Hgb (12.0 - 16.0 G/DL) 10.3 L Hct (37 - 47 %) 32.1 L MCV (81.0 - 99.0 FL) 91.1 MCH (27.0 - 31.0 PG) 29.1 MCHC (33.0 - 37.0 G/DL) 32.0 L RDW (11.5 - 14.5 %) 14.4 Plt Count (130 - 400 /CUMM) 485 H MPV (7.4 - 10.4 FL) 7.7 Gran % (42.2 - 75.2 %) 89.7 H Lymphocytes % (20.5 - 51.1 %) 6.1 L Monocytes % (1.7 - 9.3 %) 4.2 Eosinophils % (0 - 5 %) 0 Basophils % (0.0 - 2.0 %) 0 Absolute Granulocytes (1.4 - 6.5 /CUMM) 16.9 H Segmented Neutrophils (42.2 - 75.2 %) 86 H Band Neutrophils (0.0 - 5.0 %) 3 Absolute Lymphocytes (1.2 - 3.4 /CUMM) 1.1 L Lymphocytes (20.5 - 51.1 %) 9 L Monocytes (1.7 - 9.3 %) 2 Absolute Monocytes (0.10 - 0.60 /CUMM) 0.8 H Absolute Eosinophils (0.0 - 0.7 /CUMM) 0 Absolute Basophils (0.0 - 0.2 /CUMM) 0 Platelet Estimate (ADEQUATE) VERIFIED BY SMEAR Hypochromic-Microcytic 1+ Anisocytosis 1+ 01/25 1200 Blood Gas pH (7.35 - 7.45 PH) 7.30 *L pCO2 (35 - 45 TORR) 55 H pO2 (80 - 100 TORR) 373 H HCO3 (21 - 28 MEQ/L) 27 ABG O2 Sat (Measured) (>96.0 %) 99.0 P-50 (Temp Corrected) YES Carboxyhemoglobin (1.5 - 5.0 %) 0.2 L O2 Concentration % 100% Temperature (97.0 - 100.0 FARH) 96.8 L O2 Delivery Method NRB Miscellaneous Phlebotomy Draw Site RIGHT RADIAL EKG: Afib. CXR: IMPRESSION: Cardiomegaly and persistent increased interstitial opacity in both lungs, likely representing interstitial edema, with trace right pleural effusion. Chest CTA: IMPRESSION: 1. No pulmonary embolism. 2. Atherosclerotic disease of coronary arteries, cardiomegaly, persistent interstitial edema and small pleural effusions. The pleural effusions have decreased in size compared to 04/19/2017. 3. Interval worsening of patchy opacity in the left upper lobe and lower lobes, suspicious for pneumonia. A/P; 81 y/o F with pmh sig for paraplegia secondary to spinal cord injury, diabetes, paroxysmal A. fib, coronary artery disease, chronic diastolic CHF, chronic respiratory failure and oxygen dependent COPD, interstitial lung disease , history of lung cancer status post right upper lobe resection with recent admission to [facility] with rapid A. fib, UTI, now admitted with hypoxic and hypercarbic acute on chronic resp failure, + influenza and likely healthcare associated (suspected gram-negative/MRSA) pneumonia. Patient admitted to telemetry for continuous pulse ox. She will be treated with broad-spectrum antibiotics, Tamiflu. Please obtain cultures including sputum culture, blood culture and follow-up on the cultures. She should be kept on TRC nebs and inhalers. Repeat ABGs. Noted increased T4, will reduce the dose of her Synthroid. She also has high lactate levels, lactate level should be trended. She will be continued on her Eliquis, other cardiac medications. Please follow- up on her urine culture. DVT px; Eliquis. Full code.
[2017-04-26 23:09] VITALS: BP 114/56
[2017-04-27 06:00] VITALS: BP 120/68
--- NOTE | 2017-04-27 07:34 | PN- Housestaff ---
Katina Gerardo 04/27/17 0734: Subjective Follow-up For: Flu Acute on chronic respiratory failure A. fib CHF exacerbation Tele-Events Since Last Visit: 5 beats run of nonsustained V. tach Subjective: Patient was seen and examined this morning. She was lying comfortably on bed on 2 L nasal cannula oxygen. She was complaining of shortness of breath. She remained afebrile and hemodynamically stable. Review of Systems Constitutional: Reports: weakness. Denies: chills, fever. Cardiovascular: Denies: chest pain. Respiratory: Reports: short of breath, wheezing. Gastrointestinal: Denies: constipation, distention. Genitourinary: Denies: dysuria, hesitation. Musculoskeletal: Reports: muscle pain. Objective Last 24 Hrs of Vital Signs/I&O Vital Signs Date Time Temp Pulse Resp B/P B/P Pulse O2 O2 Flow FiO2 Mean Ox Delivery Rate 04/27 0854 94 120/68 04/27 0853 94 120/68 04/27 0800 Nasal 2.0L Cannula 04/27 0600 97.6 90 20 120/68 94 04/27 0107 97 Nasal 2.0L Cannula 04/26 2309 97.5 108 20 114/56 99 Nasal Cannula 04/26 2303 117 138/76 04/26 2303 117 138/76 04/26 2010 Nasal 3.0L Cannula 04/26 1907 98.4 89 24 128/66 98 Part 4.0L ReBreather 04/26 1605 100 Nasal 4.0L Cannula 04/26 1603 97.8 82 24 126/66 100 Nasal 4.0L Cannula Intake & Output 04/27 1600 04/27 0800 04/27 0000 Intake Total 820 120 220 Output Total 750 300 Balance 70 -180 220 Intake, IV 20 100 Intake, Oral 800 120 120 Output, Urine 750 300 Patient 139 lb Weight Weight Bed scale Measurement Method Physical Exam General Appearance: Alert, Oriented X3, Cooperative, No Acute Distress Cardiovascular: Normal S1, Normal S2, No Murmurs, irregularly irregular Lungs: bilateral ronchi Abdomen: Soft, No Tenderness Extremities: No Cyanosis, No Edema Current Medications: Current Medications Sig/Jonel Start time Last Medication Dose Route Stop Time Status Admin Albuterol Sulfate 3 ML BID 04/27 1002 AC 04/27 INH 1003 Albuterol Sulfate 3 ML ONCE ONE 04/27 0100 DC 04/27 INH 04/27 0101 0052 Apixaban 5 MG BID 04/26 2200 AC 04/27 PO 0853 Atorvastatin Calcium 10 MG 1700 04/27 1700 AC PO Ceftazidime 1,000 MG 0400,1600 04/27 0400 DC 04/27 IV 0452 Cholecalciferol 2,000 IU DAILY 04/27 1000 AC 04/27 PO 0853 Diclofenac Sodium 1 JC 4 TIMES/DAY PRN 04/26 1830 AC TOP Diltiazem HCl 60 MG TID 04/26 2200 AC 04/27 PO 0854 Furosemide 60 MG DAILY 04/27 1000 AC 04/27 IV 1016 Guaifenesin 600 MG Q12 04/26 2200 AC 04/27 PO 0853 Insulin Aspart 0 TIDAC 04/27 0800 AC 04/27 SC 1232 Levothyroxine Sodium 0.075 MG DAILY AC 04/27 0500 AC 04/27 PO 0503 Magnesium Sulfate 1 GM ONCE ONE 04/26 2015 DC 04/26 Dextrose/Water 100 ML IV 04/27 0014 2357 Metoprolol Tartrate 25 MG BID 04/26 2200 AC 04/27 PO 0853 Oseltamivir Phosphate 30 MG BID 04/27 2200 AC PO 05/01 2201 Oseltamivir Phosphate 30 MG BID 04/27 1000 DC 04/27 PO 05/01 2201 0854 Potassium Chloride 0 .STK-MED ONE 04/26 1702 DC PO Potassium Chloride 0 .STK-MED ONE 04/26 1702 DC PO Potassium Chloride 40 MEQ ONCE ONE 04/26 1645 DC 04/26 PO 04/26 1646 1701 Vancomycin HCl 1,000 MG 1600 04/27 1600 CAN Dextrose/Water 250 ML IV Vancomycin HCl 1,000 MG ONCE ONE 04/26 1500 DC 04/26 Dextrose/Water 250 ML IV 04/26 1559 1515 Last 24 Hrs of Lab/Twan Results Last 24 Hrs of Labs/Mics: Laboratory Tests 04/27/17 0700: Anion Gap 12, Estimated GFR 53 L, BUN/Creatinine Ratio 34.0 H, CBC w Diff NO MAN DIFF REQ, RBC 3.18 L, MCV 90.1, MCH 29.1, MCHC 32.3 L, RDW 14.6 H, MPV 7.8, Gran % 79.4 H, Lymphocytes % 14.6 L, Monocytes % 6.0, Eosinophils % 0, Basophils % 0, Absolute Granulocytes 3.1, Absolute Lymphocytes 0.6 L, Absolute Monocytes 0.2, Absolute Eosinophils 0, Absolute Basophils 0 04/27/17 0110: Troponin I 0.04 04/27/17 0110: Lactic Acid 2.0 04/26/17 2020: Lactic Acid 2.5 H 04/26/17 1908: Troponin I 0.04 04/26/17 1645: Lactic Acid 3.2 H Microbiology 04/27 145 URINE ROUT: Legionella Antigen - ORD 04/27 145 LOWER RESP: Respiratory Culture - ORD 04/27 1457 LOWER RESP: Gram Stain - ORD Assessment/Plan Assessment: This is a 81-year-old lady with multiple comorbidities including CAD status post KS stent placement,HFPrEF, paroxysmal A. fib on anticoagulation, diabetes COPD on 2 L home oxygen, ILD, lung carcinoma status post right upper lobe resection, presents with acute hypoxic hypercarbic respiratory failure in the setting of positive flu. Of note she has been recently admitted and discharged from [facility] twice with atrial fibrillation with RVR and last admission she was treated for UTI. During hospital stay we will address following problems Problem #1 acute on chronic hypoxic hypercarbic respiratory failure. Her shortness of breath is multifactorial and it could be due to CHF exacerbation and was started on IV diuresis. We sent her home on 60 mg of Lasix daily and we started her on IV Lasix 60 mg daily after discussing with Dr. Langley. She has severe COPD which might be exacerbated as well. She was found to be influenza B positive. Initially it was thought that she might have underlying pneumonia and was covered for HCAP but after discussing with ID and pulmonology we are thinking most of her findings are due to fluid overload instead of new consolidation. Her antibiotics were DC'd. In the setting of flu we will hold on IV steroids because it can exacerbate her underlying flu until and unless she really needs for severe bronchospasm/ wheezing. TRC and nebulization Supplemental oxygen to keep oxygen saturation more than 90% Problem #2 flu Patient was started on therapeutic dose of Tamiflu which is 30 twice a day according to her creatinine clearance and age. Problem #3 atrial fibrillation Her heart rate being reasonably controlled on current regimen of Cardizem and metoprolol. It was discussed with Dr. Langley whether to start her back on amiodarone for better rate control which he is not convinced at the moment but we will wait for the final recommendations by cardiology. She was continued on Eliquis. Problem #4 history of Gem's thyroiditis We have decreased her dose of levothyroxine to 75 MCG from 88 MCG. Problem #5 history of diabetes We will hold her metformin and start her on insulin according to sliding scale. Problem #6 history of CAD We will continue her home dose of atorvastatin and metoprolol Problem List: 1. Atrial fibrillation 2. CONGESTIVE HEART FAILURE Pain Ratin Pain Location: Not applicable Pain Goal: Remain pain free Pain Plan: Tylenol Tomorrow's Labs & Rationales: Cbc and basic electrolyte panel Iona Miller MD 04/27/17 1320: Attending MD Review Statement Attending Statement Attending MD Statement: examined this patient, discuss w/resident/PA/POOL HAND, agreed w/resident/PA/POOL HAND, reviewed EMR data (avail), discussed with nursing, discussed with case mgmt, amended to note Attending Assessment/Plan: Patient seen and examined. Recently discharged from [facility] after being managed for urinary tract infection and atrial fibrillation with rapid ventricular response at that time. she was discharged home in stable condition. She was discharged on 2 L of oxygen via nasal cannula. She reported being in the usual state of health until yesterday when she woke up with significant shortness of breath. She was reportedly hypoxic and came in on 6 L of oxygen via EMS. ER notes state that patient was hypoxic in the 80s and she was placed on CPAP therapy with improvement of her respiratory status. She was not in ventricular response when she presented. Rapid flu test in the emergency room was positive she was started on Tamiflu. CT imaging in the emergency room wrist concern for pneumonia however this was reviewed by her critical systems technician Dr. Pleitez was impression is that the radiologic findings are more consistent with interstitial edema and not an infectious process. Patient is currently resting calmly and was in any acute distress. She reports feeling better. She denies chest pain. She denies palpitations. She does report a productive cough. She is afebrile hemodynamically stable. She is in atrial fibrillation but with controlled ventricular response. On examination heart sounds are irregular. She has no jugular venous distention. She has good entry bilaterally with no added sounds. Abdomen soft and nontender. She has trace peripheral edema bilaterally. Mishra catheter is in place draining clear urine. Recommendations: 1. Acute on chronic hypoxic respiratory failure; secondary to influenza. 2. Chronic diastolic heart failure with chronic interstitial edema./Pulmonary hypertension/oxygen dependent COPD/mild interstitial lung disease/Platypnea 3. Atrial fibrillation. 4. Chronic anxiety disorder. 5. Hypothyroidism Plan: -Patient is afebrile. Leukocytosis resolved spontaneously overnight. Antibiotic therapy has been discontinued per recommendations of her critical systems technician service. -Continue antiviral therapy with Tamiflu. -Patient has chronic diastolic heart failure. Imaging shows persistent pulmonary edema. -Diuresis with Lasix 60 mg IV daily. She was on 60 mg daily orally which was started following her last hospitalization. -Continue rate control with Cardizem and metoprolol. Follow-up with the cardiology service if she requires more optimal rate control. She currently is not with rapid ventricular response. -Please resume her anxiolytic therapy.
[2017-04-27 08:24] LABS: ABSOLUTE BASOPHIL COUNT 0 /CUMM (0.0-0.2); ABSOLUTE EOSINOPHIL COUNT 0 /CUMM (0.0-0.7); ABSOLUTE GRANULOCYTE CT 3.1 /CUMM (1.4-6.5); ABSOLUTE LYMPH COUNT 0.6 /CUMM (1.2-3.4); ABSOLUTE MONOCYTE COUNT 0.2 /CUMM (0.10-0.60); BASOPHIL % 0 % (0.0-2.0); EOSINOPHIL % 0 % (0-5); GRANULOCYTE % 79.4 % (42.2-75.2); HEMATOCRIT 28.6 % (37-47); MEAN CORPUSCULAR HGB 29.1 PG (27.0-31.0); MEAN CORPUSCULAR HGB CONC 32.3 G/DL (33.0-37.0); MEAN CORPUSCULAR VOLUME 90.1 FL (81.0-99.0); MEAN PLATELET VOLUME 7.8 FL (7.4-10.4); PLATELET COUNT 400 /CUMM (130-400); RBC DISTRIBUTION WIDTH 14.6 % (11.5-14.5); RED BLOOD CELL CT 3.18 /CUMM (4.20-5.40)
[2017-04-27 08:32] LABS: WHITE BLOOD CELL COUNT 3.9 /CUMM (4.8-10.8)
--- NOTE | 2017-04-27 13:28 | Cons- Pulmonary ---
General Information and HPI Consulting Request Date of Consult: 04/27/17 Requested By: med team History of Present Illness: Patient is 81-year-old female with past medical history significant for paraplegia secondary to spinal cord injury, diabetes, paroxysmal atrial fibrillation on anticoagulation, CAD status post SC status post stent placement, heart failure with preserved ejection fraction, COPD on 2 L home oxygen, interstitial lung disease, lung cancer status post right upper lobe resection, history of colon cancer status post sigmoid resection and Gem's thyroiditis, recent admission at [facility] was discharged on April 20 treated for atrial fibrillation with RVR and urinary tract infection came in with chief complaint of acute shortness of breath since today morning. Apparently patient was in her usual state of health until today morning, she developed severe increasing shortness of breath not relieved by oxygen. Her daughter called EMS immediately. When the EMS arrived patient was on 6 L of oxygen through nasal cannula. Her saturation was 80s, was given DuoNeb and eventually was put on CPAP [on arrival to [facility] CPAP was removed and was placed on nonrebreather at 15 L of oxygen with a saturation of 100%]. Patient was also in A. fib with RVR and 15 mg of Cardizem IV was given during the same time at home. Patient still complained of severe short of breath after placing her on CPAP. According to the patient she cough with sputum production for the past 3 weeks which was getting better while she was discharge from [facility] 6 days ago. But the cough and sputum production didn't subside over the past week. She denies chest pain, chest pressure, nausea, vomiting, dizziness, fever, chills, Loss of consciousness, fall, abdominal pain, hematuria , diarrhea, constipation, altered since patient. Patient is usually straight catheterized every 3 hours. Mishra has been inserted earlier today. Patient was recently admitted in [facility] for atrial fibrillation with RVR and was treated for urinary tract infection with ceftriaxone. Allergies/Medications Allergies: Coded Allergies: amlodipine (Severe, C/P 05/27/16) codeine (Severe, C/P 05/27/16) morphine (Severe, C/P 05/27/16) omeprazole (Severe, C/P 05/27/16) Home Med List: Apixaban (Eliquis) 5 MG TABLET 5 MG PO BID afib . Atorvastatin Calcium 10 MG TABLET 1 TAB PO DAILY CHOLESTEROL (Reported) Budesonide/Formoterol Fumarate (Symbicort 160-4.5 Mcg Inhaler) 160 MCG-4.5 MCG/ ACTUATION HFA.AER.AD 2 PUF INH BID copd Cholecalciferol (Vitamin D3) (Vitamin D) 2,000 UNIT CAPSULE 1 CAP PO DAILY SUPPLEMENT (Reported) Diclofenac Sodium (Voltaren) 1 % GEL..GRAM. 1 GM TOP 4 TIMES/DAY Shoulder pain apply to affected area(s) Diltiazem HCl (Cardizem) 60 MG TABLET 60 MG PO TID A. fib Furosemide 20 MG TABLET 60 MG PO DAILY DIURETIC Levothyroxine Sodium (Synthroid) 88 MCG TABLET 1 TAB PO DAILY THYROID PROBLEMS Lorazepam (Ativan) 0.5 MG TABLET 1 TAB PO Q6-8H PRN ANXIETY (Reported) Losartan Potassium (Cozaar) 25 MG TABLET 1 TAB PO DAILY blood pressure control Metformin HCl 500 MG TABLET 1 TAB PO DAILY DM (Reported) Metoprolol Tartrate 25 MG TABLET 1 TAB PO BID HEART HEALTH Prednisone 10 MG TABLET 4 TAB PO DAILY COPD .4 tab x1 day,then 3 tab daily x 2 days then 2 tab a day for 2 days then 1 tab for 2 days then stop Review of Systems Comments Constitutional: Reports: weakness. EENTM: Reports: no symptoms. Cardiovascular: Reports: no symptoms. Respiratory: Reports: cough, short of breath, sputum production. GI: Reports: no symptoms. Genitourinary: Reports: no symptoms. Musculoskeletal: Reports: no symptoms. Skin: Reports: no symptoms. Neurological/Psychological: Reports: no symptoms. Hematologic/Endocrine: Reports: no symptoms. Past History Travel History Traveled to [place] past 21 day No Medical History Blood Transfusion Hx: Yes Neurological: paraplegia status post spine fx/fall intention tremor EENT: epistaxis Cardiovascular: AFIB (PAF), CAD (s/p stent to RCA vs PTCA), CHF, hypertension, hyperlipidemia, myocardial infarction Respiratory: COPD, interstitial lung disease, LUNG CA RUL LOBECTOMY O2 DEPENDENT 2-3L Gastrointestinal: lactose intolerance, [id number], SIGMOID COLECTOMY 02/13 colonoscopy fair prep - tics but no polyps 02/13- egd gastritis DIVERTICULOSIS COLI Hepatic: NONE Renal: urinary incontinence Musculoskeletal: chronic back pain (post fall), degen joint disease, BROKEN BACK 15 YEARS AGO UNABLE TO BEAR WEIGHT Psychiatric: anxiety Endocrine: diabetes, hypothyroidism Blood Disorders: NONE (chronic), anemia Cancer(s): lung cancer (s/p RUL lobectomy SC Ca), AdenoCa in situ- sigmoid resection PUBLIC ADDRESS SERVICER/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 , Age 70. FHx: stomach cancer FATHER ("some type of Ca"- not colon Ca). , Age 63. FH: cancer BROTHER FH: prostate cancer Psychosocial History Where Do You Live? Home Who Do You Live With? child, SHE LIVES WITH HER DAUGHTER Services at Home: Nursing, Oxygen Primary Language: Marshallese Smoking Status: Former Smoker ETOH Use: denies use Illicit Drug Use: denies illicit drug use Living Will? yes Power of Senior Physician/HCP? yes Name of POA/HCP: Pt's sonConstantino Functional Ability ADLs Needs Assist: dressing, eating, toileting, bathing. Ambulation: non-ambulatory (W/C) IADLs Needs Assist: shopping, housework, finances, food prep, telephone, transportation, medication admin. ECHO Results (as available) EF% 60 Exam & Diagnostic Data Last 24 Hrs of Vital Signs/I&O Vital Signs Date Time Temp Pulse Resp B/P B/P Pulse O2 O2 Flow FiO2 Mean Ox Delivery Rate 04/27 0854 94 120/68 04/27 0853 94 120/68 04/27 0800 Nasal 2.0L Cannula 04/27 0600 97.6 90 20 120/68 94 04/27 0107 97 Nasal 2.0L Cannula 04/26 2309 97.5 108 20 114/56 99 Nasal Cannula 04/26 2303 117 138/76 04/26 2302 117 138/76 04/26 2010 Nasal 3.0L Cannula 04/26 1907 98.4 89 24 128/66 98 Part 4.0L ReBreather 04/26 1605 100 Nasal 4.0L Cannula 04/26 1603 97.8 82 24 126/66 100 Nasal 4.0L Cannula 04/26 1330 86 26 126/66 96 Nasal 4.0L Cannula Intake & Output 04/27 1600 04/27 0800 04/27 0000 Intake Total 120 220 Output Total 300 Balance -180 220 Intake, IV 100 Intake, Oral 120 120 Output, Urine 300 Patient 139 lb Weight Weight Bed scale Measurement Method Last 48 Hrs of Labs/Twan: Laboratory Tests 04/27/17 0700: Anion Gap 12, Estimated GFR 53 L, BUN/Creatinine Ratio 34.0 H, CBC w Diff NO MAN DIFF REQ, RBC 3.18 L, MCV 90.1, MCH 29.1, MCHC 32.3 L, RDW 14.6 H, MPV 7.8, Gran % 79.4 H, Lymphocytes % 14.6 L, Monocytes % 6.0, Eosinophils % 0, Basophils % 0, Absolute Granulocytes 3.1, Absolute Lymphocytes 0.6 L, Absolute Monocytes 0.2, Absolute Eosinophils 0, Absolute Basophils 0 04/27/17 0110: Troponin I 0.04 04/27/17 0110: Lactic Acid 2.0 04/26/17 2020: Lactic Acid 2.5 H 04/26/17 1908: Troponin I 0.04 04/26/17 1645: Lactic Acid 3.2 H 04/26/17 1425: Urine Color YEL, Urine Clarity HAZY H, Urine pH 6.0, Ur Specific [place] 1.015, Urine Protein NEG, Urine Ketones NEG, Urine Nitrite NEG, Urine Bilirubin NEG, Urine Urobilinogen 0.2, Ur Leukocyte Esterase LARGE H, Ur Microscopic SEDIMENT EXAMINED, Urine RBC FEW H, Urine WBC 25-50 H, Ur Epithelial Cells MANY H, Urine Bacteria FEW H, Micro UA Comment [place] H, Urine Hemoglobin TRACE -INTACT, Urine Glucose NEG 04/26/17 1355: Virus Culture Pending 04/26/17 1305: Lactic Acid 4.3 H 04/26/17 1305: Anion Gap 15, Estimated GFR 53 L, BUN/Creatinine Ratio 34.0 H, Glucose 231 H, Calcium 8.7, Phosphorus 3.8, Magnesium 1.7, Total Bilirubin 0.5, AST 36, ALT 38, Alkaline Phosphatase 81, Troponin I 0.03, Eel-N-Lmtsiiiqpoo Pept 94567 H, Total Protein 7.5, Albumin 3.8, Globulin 3.7, Albumin/Globulin Ratio 1.0 L, TSH 0.921 , Free T4 2.70 H, D-Dimer High Sensitivty 359 H, CBC w Diff MAN DIFF ORDERED, RBC 3.52 L, MCV 91.1, MCH 29.1, MCHC 32.0 L, RDW 14.4, MPV 7.7, Gran % 89.7 H , Lymphocytes % 6.1 L, Monocytes % 4.2, Eosinophils % 0, Basophils % 0, Absolute Granulocytes 16.9 H, Segmented Neutrophils 86 H, Band Neutrophils 3, Absolute Lymphocytes 1.1 L, Lymphocytes 9 L, Monocytes 2, Absolute Monocytes 0.8 H, Absolute Eosinophils 0, Absolute Basophils 0, Platelet Estimate VERIFIED BY SMEAR, Hypochromic-Microcytic 1+, Anisocytosis 1+ 04/26/17 1200: pH 7.30 *L, pCO2 55 H, pO2 373 H, HCO3 27, ABG O2 Sat (Measured) 99.0, P-50 ( Temp Corrected) YES, Carboxyhemoglobin 0.2 L, O2 Concentration % 100%, Temperature 96.8 L, O2 Delivery Method NRB, Phlebotomy Draw Site RIGHT RADIAL Microbiology 04/26 1425 URINE ROUT: Streptococcus pneumoniae Antigen (M - COMP 04/26 1355 NASOPHARYN: Influenza Virus A & B Rapid Smear - COMP INFLUENZA TYPE B Assessment/Plan Impression/Plan: General Appearance Alert, Oriented X3, Cooperative, Moderate Distress Skin No Rashes Skin Temp/Moisture Exam: Warm/Dry HEENT PERRLA, EOMI, Mucous Membr. moist/pink Cardiovascular Normal S1, Normal S2, No Murmurs Lungs b/l expiratory wheeze,basal crackles Abdomen Normal Bowel Sounds, Soft, No Tenderness Neurological Strength at 5/[address] CHEST IMPRESSION: 1. No pulmonary embolism. 2. Atherosclerotic disease of coronary arteries, cardiomegaly, persistent interstitial edema and small pleural effusions. The pleural effusions have decreased in size compared to 04/19/2017. 3. Interval worsening of patchy opacity in the left upper lobe and lower lobes, suspicious for pneumonia. 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 now presumed cured, hypertension, paroxysmal atrial fibrillation was on amiodarone (which has been stopped due to presumed toxicity before, however pt was not converted to sinus rhythm with this )and anticoagulation, previous tachycardia-induced acute pulmonary edema, drug-eluting stent to the RCA in May 2014, paraplegia, nosebleeds, chronic anemia with previous negative GI workup, recurrent bronchitis with mild interstitial lung disease, moderate obstructive pulmonary disease as well now comes in with * Acute hypoxic and hypercarbic resp failure due to acute pulm edema due to afib with rvr with flash pulm edema, compounded by influenza b pna * Rapid afib with shortness of breath with tachy cardia induced pulm edema, ct sugg of that * Mild effusion due to chf * Recent UTI * Chronic anemia * Sig COPD and ILD with wheezing due to pulm edema * Paroxysmal atrial fibrillation, needs rate control med * Previous PCI with stent, * 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 * Pulmonary hypertension multifactorial * Chronic small airway disease, mild ILD on top of her mod COPD * Chronic paraplegia * Platypnea with no evidence of any shunt with previous work up for ASD or any shunt physiology neg, and no evidence of decompensated liver disease (is not short of breath while she sits in her wheel chair but cannot sit up in bed) * Chronic stable ischemic heart disease with stent as noted * Previous lung ca with no sig recurrence REC Cont current meds tamiflu full dose Hold further abx sputum culture Pt may need amiodarone again ask cardio Rate control needed Ipratropium nebs atc q6 Hold systemic steroids unless she is wheezing Reduce levoxyl now to 75 from 88 which could also precipitate tachy Will follow IV steroids only if she is wheezing sig as influenza may get worse with steroids Consult Acknowledgment - Thank you for your consult request.
--- NOTE | 2017-04-27 13:50 | Cons- Infect Disease ---
General Information and HPI Consulting Request Date of Consult: 04/27/17 Requested By: Iona Miller MD Reason for Consult: Influenza/rule out pneumonia Source of Information: patient, old records History of Present Illness: This is an 81-year-old woman, paraplegic following a spinal cord injury 19 years prior to admission, with a history of diabetes, hypertension, coronary artery disease, status post stent, paroxysmal atrial fibrillation, status post CVA, maintained on Eliquis, CHF, COPD, maintained on prn oxygen, lung cancer, status post right upper lobectomy, colorectal cancer, status post sigmoid colectomy, and recurrent urinary tract infections, maintained on a straight cath protocol at home, hospitalized 2 weeks prior to admission with paroxysmal atrial fibrillation and shortness of breath, treated with Azithromycin for a bronchitis , rehospitalized 1 week prior to admission with shortness of breath, initially treated with Ceftriaxone and Azithromycin but changed to Ciprofloxacin to treat a positive urine culture after a CT of the chest suggested pulmonary edema, discharged on prednisone and Lasix, readmitted on October 24, just 2 days after discharge with the acute onset of shortness of breath, associated with a persistent cough and chest heaviness with no fevers or chills. On admission she was afebrile. Laboratory data revealed a white blood cell count of 19,000, BUN/ creatinine 34 and 1.0, with normal liver enzymes, BNP 21,000, troponin 0.03, d- dimer 359. urinalysis few RBCs/25-50 WBCs. Chest x-ray revealed cardiomegaly and persistent increased interstitial opacity in both lungs. CTA of the chest revealed cardiomegaly, persistent interstitial edema and small pleural effusions , with interval worsening of patchy opacities in the left upper lobe and both lower lobes. A rapid flu swab was positive for Influenza B. She was given Solumedrol, Lasix, Vancomycin and Ceftazidime and was begun on Tamiflu. She has remained afebrile overnight and feels improved this morning. Allergies/Medications Allergies: Coded Allergies: amlodipine (Severe, C/P 05/27/16) codeine (Severe, C/P 05/27/16) morphine (Severe, C/P 05/27/16) omeprazole (Severe, C/P 05/27/16) Home Med List: Apixaban (Eliquis) 5 MG TABLET 5 MG PO BID afib . Atorvastatin Calcium 10 MG TABLET 1 TAB PO DAILY CHOLESTEROL (Reported) Budesonide/Formoterol Fumarate (Symbicort 160-4.5 Mcg Inhaler) 160 MCG-4.5 MCG/ ACTUATION HFA.AER.AD 2 PUF INH BID copd Cholecalciferol (Vitamin D3) (Vitamin D) 2,000 UNIT CAPSULE 1 CAP PO DAILY SUPPLEMENT (Reported) Diclofenac Sodium (Voltaren) 1 % GEL..GRAM. 1 GM TOP 4 TIMES/DAY Shoulder pain apply to affected area(s) Diltiazem HCl (Cardizem) 60 MG TABLET 60 MG PO TID A. fib Furosemide 20 MG TABLET 60 MG PO DAILY DIURETIC Levothyroxine Sodium (Synthroid) 88 MCG TABLET 1 TAB PO DAILY THYROID PROBLEMS Lorazepam (Ativan) 0.5 MG TABLET 1 TAB PO Q6-8H PRN ANXIETY (Reported) Losartan Potassium (Cozaar) 25 MG TABLET 1 TAB PO DAILY blood pressure control Metformin HCl 500 MG TABLET 1 TAB PO DAILY DM (Reported) Metoprolol Tartrate 25 MG TABLET 1 TAB PO BID HEART HEALTH Prednisone 10 MG TABLET 4 TAB PO DAILY COPD .4 tab x1 day,then 3 tab daily x 2 days then 2 tab a day for 2 days then 1 tab for 2 days then stop Past History Travel History Traveled to [place] past 21 day No Medical History Blood Transfusion Hx: Yes Neurological: paraplegia status post spine fx/fall intention tremor EENT: epistaxis Cardiovascular: AFIB (PAF), CAD (s/p stent to RCA vs PTCA), CHF, hypertension, hyperlipidemia, myocardial infarction Respiratory: COPD, interstitial lung disease, LUNG CA RUL LOBECTOMY O2 DEPENDENT 2-3L Gastrointestinal: lactose intolerance, [id number], SIGMOID COLECTOMY 02/13 colonoscopy fair prep - tics but no polyps 02/13- egd gastritis DIVERTICULOSIS COLI Hepatic: NONE Renal: urinary incontinence Musculoskeletal: chronic back pain (post fall), degen joint disease, BROKEN BACK 15 YEARS AGO UNABLE TO BEAR WEIGHT Psychiatric: anxiety Endocrine: diabetes, hypothyroidism Blood Disorders: NONE (chronic), anemia Cancer(s): lung cancer (s/p RUL lobectomy SC Ca), AdenoCa in situ- sigmoid resection 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 , Age 70. FHx: stomach cancer FATHER ("some type of Ca"- not colon Ca). , Age 63. FH: cancer BROTHER FH: prostate cancer Psychosocial History Where Do You Live? Home Who Do You Live With? child, SHE LIVES WITH HER DAUGHTER Services at Home: Nursing, Oxygen Primary Language: Bruneian Smoking Status: Former Smoker ETOH Use: denies use Illicit Drug Use: denies illicit drug use Living Will? yes Power of Senior Software Analyst/HCP? yes Name of POA/HCP: Pt's sonConstantino Functional Ability ADLs Needs Assist: dressing, eating, toileting, bathing. Ambulation: non-ambulatory (W/C) IADLs Needs Assist: shopping, housework, finances, food prep, telephone, transportation, medication admin. ECHO Results (as available) EF% 60 Review of Systems Review of Systems All Other Systems: Reviewed and Negative Exam & Diagnostic Data Last 24 Hrs of Vital Signs/I&O Vital Signs Date Time Temp Pulse Resp B/P B/P Pulse O2 O2 Flow FiO2 Mean Ox Delivery Rate 04/27 0854 94 120/68 04/27 0853 94 120/68 04/27 0800 Nasal 2.0L Cannula 04/27 0600 97.6 90 20 120/68 94 04/27 0107 97 Nasal 2.0L Cannula 04/26 2309 97.5 108 20 114/56 99 Nasal Cannula 04/26 2302 117 138/76 04/26 2302 117 138/76 04/26 2010 Nasal 3.0L Cannula 04/26 1907 98.4 89 24 128/66 98 Part 4.0L ReBreather 04/26 1605 100 Nasal 4.0L Cannula 04/26 1603 97.8 82 24 126/66 100 Nasal 4.0L Cannula Intake & Output 04/27 1600 04/27 0800 04/27 0000 Intake Total 120 220 Output Total 300 Balance -180 220 Intake, IV 100 Intake, Oral 120 120 Output, Urine 300 Patient 139 lb Weight Weight Bed scale Measurement Method Physical Exam Other Physical Findings: Afebrile. She is awake and alert in no acute distress. Skin reveals no rash. HEENT slight erythema of the uvula, with no exudate. Neck is supple with no adenopathy. Lungs are clear. Heart irregular rhythm with no murmur. Abdomen is soft, nontender with positive bowel sounds. Back no CVA tenderness. Extremities trace edema both lower extremities. Neuro paraplegia. Mishra catheter is in place. Last 24 Hours of Lab Results: Laboratory Tests 04/27 04/27 04/27 04/26 0700 0110 0110 2020 Chemistry Sodium (137 - 145 mmol/L) 137 Potassium (3.5 - 5.1 mmol/L) 4.3 Chloride (98 - 107 mmol/L) 91 L Carbon Dioxide (22 - 30 mmol/L) 34 H Anion Gap (5 - 16) 12 BUN (7 - 17 mg/dL) 34 H Creatinine (0.5 - 1.0 mg/dL) 1.0 Estimated GFR (>60 ml/min) 53 L BUN/Creatinine Ratio (7 - 25 %) 34.0 H Lactic Acid (0.7 - 2.1 mmol/L) 2.0 2.5 H Troponin I (< 0.11 ng/ml) 0.04 Hematology CBC w Diff NO MAN DIFF REQ WBC (4.8 - 10.8 /CUMM) 3.9 L RBC (4.20 - 5.40 /CUMM) 3.18 L Hgb (12.0 - 16.0 G/DL) 9.3 L Hct (37 - 47 %) 28.6 L MCV (81.0 - 99.0 FL) 90.1 MCH (27.0 - 31.0 PG) 29.1 MCHC (33.0 - 37.0 G/DL) 32.3 L RDW (11.5 - 14.5 %) 14.6 H Plt Count (130 - 400 /CUMM) 400 MPV (7.4 - 10.4 FL) 7.8 Gran % (42.2 - 75.2 %) 79.4 H Lymphocytes % (20.5 - 51.1 %) 14.6 L Monocytes % (1.7 - 9.3 %) 6.0 Eosinophils % (0 - 5 %) 0 Basophils % (0.0 - 2.0 %) 0 Absolute Granulocytes (1.4 - 6.5 /CUMM) 3.1 Absolute Lymphocytes (1.2 - 3.4 /CUMM) 0.6 L Absolute Monocytes (0.10 - 0.60 /CUMM) 0.2 Absolute Eosinophils (0.0 - 0.7 /CUMM) 0 Absolute Basophils (0.0 - 0.2 /CUMM) 0 04/26 04/26 04/26 1908 1645 1425 Chemistry Lactic Acid (0.7 - 2.1 mmol/L) 3.2 H Troponin I (< 0.11 ng/ml) 0.04 Urines Urine Color (YEL,AMB,STR) YEL Urine Clarity (CLEAR) HAZY H Urine pH (5.0 - 8.0) 6.0 Ur Specific [place] (1.001 - 1.035) 1.015 Urine Protein (NEG,<30 MG/DL) NEG Urine Ketones (NEG) NEG Urine Nitrite (NEG) NEG Urine Bilirubin (NEG) NEG Urine Urobilinogen (0.1 - 1.0 EU/dl) 0.2 Ur Leukocyte Esterase (NEG) LARGE H Ur Microscopic SEDIMENT EXAMINED Urine RBC (0 - 5 /HPF) FEW H Urine WBC (0 - 2 /HPF) 25-50 H Ur Epithelial Cells (NONE,FEW) MANY H Urine Bacteria (NEG/NONE) FEW H Micro UA Comment BUDDING YEAST H Urine Hemoglobin (NEG) TRACE-INTACT Urine Glucose (N MG/DL) NEG 04/26 1355 Serology Virus Culture Pending Last 24 Hours of Twan Results: Blood cultures 2 April 26 negative Urine culture April 26 negative Urine strep pneumo antigen April 26 negative Rapid flu swab April 26 positive for Influenza B Diagnostic Data Recent Imaging Findings: Chest x-ray revealed cardiomegaly and persistent increased interstitial opacity in both lungs. CTA of the chest revealed cardiomegaly, persistent interstitial edema and small pleural effusions, with interval worsening of patchy opacities in the left upper lobe and both lower lobes. Assessment/Plan Assessment/Plan Impression: This is an 81-year-old woman, paraplegic following a spinal cord injury 19 years prior to admission, with a history of diabetes, hypertension, coronary artery disease, status post stent, paroxysmal atrial fibrillation, status post CVA, maintained on Eliquis, CHF, COPD, maintained on prn oxygen, with recurrent urinary tract infections, maintained on a straight cath protocol at home, hospitalized twice in the past 2 weeks for rapid atrial fibrillation and shortness of breath, treated with antibiotics on both hospitalizations and steroids on the second, readmitted on October 24 with the acute onset of shortness of breath, associated with a persistent cough and chest heaviness, found to be afebrile with a white blood cell count of 19,000 a markedly elevated BNP and a positive rapid flu swab, with a CTA of the chest revealing persistent interstitial edema and small pleural effusions, with interval worsening of patchy opacities in the left upper lobe and both lower lobes. Her respiratory distress on admission may be multifactorial secondary to CHF, given her markedly elevated BNP and chest x-ray/CT findings, an exacerbation of COPD or pneumonia, which could be secondary to Influenza, with either a primary viral pneumonia or a secondary bacterial pneumonia. Of note a rapid flu swab on her recent admission was negative. Her leukocytosis might suggest a bacterial process, but, given the rapid normalization of her white blood cell count, it is most likely secondary to the steroids she was on prior to admission. As she appears to have improved rapidly feel that she can be followed off antibiotics ( other than treatment for Influenza) and continued on treatment for possible CHF/ COPD. Suggestion: 1. Would attempt to obtain a sputum culture 2. Urine for Legionella antigen 3. Maintain droplet precautions 4. Pulmonary and Cardiology evaluations 5. Remove Mishra catheter as soon as possible and reinstitute straight cath protocol 6. Continue Tamiflu but would hold on further antibiotics pending above Simona Vega MD will be covering over the weekend Consult Acknowledgment - Thank you for your consult request.
[2017-04-27 15:12] VITALS: BP 120/70
--- NOTE | 2017-04-27 19:43 | Cons- Cardiology ---
General Information and HPI Consulting Request Date of Consult: 04/27/17 Requested By: Iona Miller MD History of Present Illness: Mary is an 81-year-old female with history of hypertension, paroxysmal atrial fibrillation and coronary artery disease status post myocardial infarction. She is also status post a right lobectomy for lung cancer. Finally, it should be recalled that this patient has long-standing lower extremity paralysis following trauma. Mary was recently discharged from the hospital. Yesterday, while arising from bed she suddenly felt profoundly short of breath with wheezing and a cough. She was in respiratory distress with a low oxygen saturation when found by EMS. She is typically in atrial fibrillation with controlled heart rate although she was tachycardic upon initial presentation to the ER. She denies chest discomfort or lightheadedness but has noted some palpitations. At one time this patient was on Amiodarone to control her rhythm but this medication was stopped due to concerns that it was causing pulmonary fibrosis. It should be noted that this patient is hyperthyroid. In the ER a rapid flu test was positive for Influenza B. Overall, Mary has been doing well for an extended period of time. She does have episodes at night when she feels short of breath but uses her supplemental oxygen and she quickly improves. She also uses Lasix on an as needed basis but has only rarely needed to use it. For the most part Mary is free of any chest discomfort or palpitations. At about 4PM she has noted transient lightheadedness on a fairly consistent basis. This is unchanged despite lowering her Metoprolol dose. Her daughter checks her BP during these episodes and it tends to be a bit high rather than low. It should be recalled that this patient had a severely elevated blood pressure often above 200mmHg but it is now well controlled. She is chronically short of breath without orthopnea but at present he breathing is about at her baseline which except for some occasional exceptions is comfortable. At baseline she tends to be anemic. Mary has had multiple hospital admissions over a short period of time for shortness of breath. On last visit this was accompanied by anemia that was beyond her baseline, although she does carry a chronic history of low H/H. Her admissions are typically accompanied by findings of pulmonary edema and there is often a component of tachtycardia or rapid palpitations that accompany her decompensation. She denies orthopnea and, if fact, typically has platypnea. We have previously worked her up for a shunt of ASD and this workup was negative. It should be recalled that this patient underwent angioplasty to her mid right coronary artery a couple months ago which had a significant flow-limiting stenosis. The remainder of her coronary anatomy was within the normal range. Her hospital course was complicated by an RSV pneumonia. It should be recalled that this patient has had previous shortness of breath with platypnea; as such, a bubble study was performed to rule out any ASD or shunt. This did not appear to be present. Her EF was noted to be normal. She was taken off amiodarone, which she was previously on due to possible concerns over toxicity, although a CT scan did not show any evidence of this. At baseline, this patient can engage in light housework such as washing some dishes in her wheelchair. It should be noted that, in the past prior to her recent PCI, the patient did have some intermittent exertional chest tightness with mildly positive cardiac enzymes. Lastly, this patient has complained of food getting stuck in her esophagus. The patient's cardiac workup has included an echocardiogram. This study showed an overall normal EF of 60% with mild left ventricular enlargement. In terms of cardiac valves there was moderate mitral and tricuspid regurgitation and mild aortic and pulmonic insufficiency. She has moderate pulmonary hypertension. Allergies/Medications Allergies: Coded Allergies: amlodipine (Severe, C/P 05/27/16) codeine (Severe, C/P 05/27/16) morphine (Severe, C/P 05/27/16) omeprazole (Severe, C/P 05/27/16) Home Med List: Apixaban (Eliquis) 5 MG TABLET 5 MG PO BID afib . Atorvastatin Calcium 10 MG TABLET 1 TAB PO DAILY CHOLESTEROL (Reported) Budesonide/Formoterol Fumarate (Symbicort 160-4.5 Mcg Inhaler) 160 MCG-4.5 MCG/ ACTUATION HFA.AER.AD 2 PUF INH BID copd Cholecalciferol (Vitamin D3) (Vitamin D) 2,000 UNIT CAPSULE 1 CAP PO DAILY SUPPLEMENT (Reported) Diclofenac Sodium (Voltaren) 1 % GEL..GRAM. 1 GM TOP 4 TIMES/DAY Shoulder pain apply to affected area(s) Diltiazem HCl (Cardizem) 60 MG TABLET 60 MG PO TID A. fib Furosemide 20 MG TABLET 60 MG PO DAILY DIURETIC Levothyroxine Sodium (Synthroid) 88 MCG TABLET 1 TAB PO DAILY THYROID PROBLEMS Lorazepam (Ativan) 0.5 MG TABLET 1 TAB PO Q6-8H PRN ANXIETY (Reported) Losartan Potassium (Cozaar) 25 MG TABLET 1 TAB PO DAILY blood pressure control Metformin HCl 500 MG TABLET 1 TAB PO DAILY DM (Reported) Metoprolol Tartrate 25 MG TABLET 1 TAB PO BID HEART HEALTH Prednisone 10 MG TABLET 4 TAB PO DAILY COPD .4 tab x1 day,then 3 tab daily x 2 days then 2 tab a day for 2 days then 1 tab for 2 days then stop Review of Systems Review of Systems: A review of systems is unremarkable. Past History Travel History Traveled to [place] past 21 day No Medical History Blood Transfusion Hx: Yes Neurological: paraplegia status post spine fx/fall intention tremor EENT: epistaxis Cardiovascular: AFIB (PAF), CAD (s/p stent to RCA vs PTCA), CHF, hypertension, hyperlipidemia, myocardial infarction Respiratory: COPD, interstitial lung disease, LUNG CA RUL LOBECTOMY O2 DEPENDENT 2-3L Gastrointestinal: lactose intolerance, [id number], SIGMOID COLECTOMY 02/13 colonoscopy fair prep - tics but no polyps 02/13- egd gastritis DIVERTICULOSIS COLI Hepatic: NONE Renal: urinary incontinence Musculoskeletal: chronic back pain (post fall), degen joint disease, BROKEN BACK 15 YEARS AGO UNABLE TO BEAR WEIGHT Psychiatric: anxiety Endocrine: diabetes, hypothyroidism Blood Disorders: NONE (chronic), anemia Cancer(s): lung cancer (s/p RUL lobectomy [place] Ca), AdenoCa in situ- sigmoid resection 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 , Age 70. FHx: stomach cancer FATHER ("some type of Ca"- not colon Ca). , Age 63. FH: cancer BROTHER FH: prostate cancer Psychosocial History Where Do You Live? Home Who Do You Live With? child, SHE LIVES WITH HER DAUGHTER Services at Home: Nursing, Oxygen Primary Language: Yakut Smoking Status: Former Smoker ETOH Use: denies use Illicit Drug Use: denies illicit drug use Living Will? yes Power of Abstract Clerk/HCP? yes Name of POA/HCP: Pt's son, Constantino Boston Functional Ability ADLs Needs Assist: dressing, eating, toileting, bathing. Ambulation: non-ambulatory (W/C) IADLs Needs Assist: shopping, housework, finances, food prep, telephone, transportation, medication admin. ECHO Results (as available) EF% 60 Report: CONCLUSIONS 1. Mildly decreased EF of 45% with moderate anterior and anteroseptal wall hypokinesis. 2. Mild left ventricular hypertrophy. 3. Mild mitral regurgitation. 4. Mild tricuspid regurgitation. Exam & Diagnostic Data Vital Signs and I&O Vital Signs Date Time Temp Pulse Resp B/P B/P Pulse O2 O2 Flow FiO2 Mean Ox Delivery Rate 04/27 1626 80 120/70 04/27 1523 Nasal 2.0L Cannula 04/27 1512 97.8 75 20 120/ 99 Nasal 5.0L Cannula 04/27 1458 Nasal 2.0L Cannula 04/27 0854 94 120/68 04/27 0853 94 120/68 04/27 0800 Nasal 2.0L Cannula 04/27 0600 97.6 90 20 120/68 94 04/27 0107 97 Nasal 2.0L Cannula 04/26 2309 97.5 108 20 114/56 99 Nasal Cannula 04/26 2302 117 138/76 04/26 2302 117 138/76 04/26 2010 Nasal 3.0L Cannula Intake & Output 04/27 1600 04/27 0800 04/27 0000 04/26 1600 04/26 0800 04/26 0000 Intake Total 820 120 220 0 Output Total 750 300 Balance 70 -180 220 0 Intake, IV 20 100 Intake, Oral 800 120 120 0 Output, Urine 750 300 Patient 139 lb 142 lb Weight Weight Bed scale Reported by Patient Measurement Method Physical Exam: General: WD/overweight female in mild distress; alert and oriented x 3 HEETN: NC/AT, PERRL, EOMI Neck: no JVD, no carotid bruit Heart: irregularly irregular Lungs: decreased breath sounds bilaterally without crackles Abdomen: soft, obese, NT, +ve bowel sounds Extremities: no edema Neuro: bilateral lower extremity paralysis Assessment/Plan Assessment/Plan * This patient has chronic atrial fibrillation with a heart rate that is appropriately elevated in the setting of respiratory distress. Overall, she seems to have reasonable rate control on her current medications. I suspect that she will do even better when her issues with hyperthyroidism improve. Ms. Boston should continue on chronic anticoagulation with Eliquis for stroke prophylaxis. Cotninue her current dose of calcium channel block and a small dose of beta juaquin for rate control. There is unlikely to be any benefit to beginning Amiodarone in a patient that is for the most part rate controlled and who, due to lung disease, is unlikely to remain in a sinus rhythm regardless of the antiarrhythmic medication utilized. I have even greater reservations in this patient with a partial lobectomy, interstitial lung disease and thyroid issues. * This patient does have mild superimposed CHF in the setting of hypoxia. Continue Lasix at 60mg IV daily for a couple days with monitoring of her BUN, creatinine and potassium. She has evidence of emphysematous COPD and interstitial lung disease superimposed on decreased lung capacity from a lobectomy. I suspect that her Influenza was the initiating event that led to her subsequent decompensation. Consult Acknowledgment - Thank you for your consult request.
[2017-04-27 23:01] VITALS: BP 102/60
[2017-04-28 06:03] VITALS: BP 124/72
[2017-04-28 08:14] LABS: ABSOLUTE BASOPHIL COUNT 0 /CUMM (0.0-0.2); ABSOLUTE EOSINOPHIL COUNT 0 /CUMM (0.0-0.7); ABSOLUTE GRANULOCYTE CT 5.7 /CUMM (1.4-6.5); ABSOLUTE LYMPH COUNT 1.1 /CUMM (1.2-3.4); ABSOLUTE MONOCYTE COUNT 0.6 /CUMM (0.10-0.60); BASOPHIL % 0.1 % (0.0-2.0); EOSINOPHIL % 0 % (0-5); GRANULOCYTE % 76.4 % (42.2-75.2); HEMATOCRIT 29.8 % (37-47); MEAN CORPUSCULAR HGB 29.4 PG (27.0-31.0); MEAN CORPUSCULAR HGB CONC 32.7 G/DL (33.0-37.0); MEAN CORPUSCULAR VOLUME 89.9 FL (81.0-99.0); PLATELET COUNT 390 /CUMM (130-400); RBC DISTRIBUTION WIDTH 14.7 % (11.5-14.5); RED BLOOD CELL CT 3.31 /CUMM (4.20-5.40)
[2017-04-28 09:02] LABS: WHITE BLOOD CELL COUNT 7.4 /CUMM (4.8-10.8)
--- NOTE | 2017-04-28 10:21 | PN- Pulmonary ---
Subjective HPI/Critical Care Issues: Patient continues with cough and shortness of breath in the setting of congestive heart failure and influenza Objective Current Medications: Current Medications Sig/Jonel Start time Last Medication Dose Route Stop Time Status Admin Albuterol Sulfate 3 ML BID 04/27 1002 AC 04/28 INH 1004 Apixaban 5 MG BID 04/26 2200 AC 04/28 PO 0934 Atorvastatin Calcium 10 MG 1700 04/27 1700 AC 04/27 PO 1626 Benzonatate 100 MG ONCE ONE 04/28 0045 DC 04/28 PO 04/28 0046 0145 Cholecalciferol 2,000 IU DAILY 04/27 1000 AC 04/28 PO 0934 Diclofenac Sodium 1 JC 4 TIMES/DAY PRN 04/26 1830 AC 04/28 TOP 0935 Diltiazem HCl 60 MG TID 04/26 2200 AC 04/28 PO 0934 Furosemide 60 MG DAILY 04/27 1000 AC 04/28 IV 0933 Guaifenesin 600 MG Q12 04/26 2200 AC 04/28 PO 0934 Insulin Aspart 0 TIDAC 04/27 0800 AC 04/27 SC 1232 Levothyroxine Sodium 0.075 MG DAILY AC 04/27 0500 AC 04/28 PO 0543 Lorazepam 0.5 MG Q6P PRN 04/27 1645 AC 04/28 PO 05/04 1644 0145 Metoprolol Tartrate 25 MG BID 04/26 2200 AC 04/28 PO 0934 Oseltamivir Phosphate 30 MG BID 04/27 2200 AC 04/28 PO 05/01 2201 0934 Vancomycin HCl 1,000 MG 1600 04/27 1600 CAN Dextrose/Water 250 ML IV Vital Signs & I&O Last 24 Hrs of Vitals and I&O: Vital Signs Date Time Temp Pulse Resp B/P B/P Pulse O2 O2 Flow FiO2 Mean Ox Delivery Rate 04/28 0934 146/82 04/28 0934 92 146/82 04/28 0800 Nasal 2.0L Cannula 04/28 0603 97.4 83 24 124/72 96 Nasal Cannula 04/28 0045 96 Nasal 2.0L Cannula 04/27 2301 97.8 92 24 102/60 96 Nasal 2.0L Cannula 04/27 2256 Nasal 2.0L Cannula 04/27 2116 77 102/68 04/27 2115 77 102/68 04/27 1626 80 120/70 04/27 1523 Nasal 2.0L Cannula 04/27 1512 97.8 75 20 120/70 99 Nasal 5.0L Cannula 04/27 1458 Nasal 2.0L Cannula Intake & Output 04/28 1600 04/28 0800 04/28 0000 Intake Total 250 310 Output Total Balance 250 310 Intake, IV 10 Intake, Oral 250 300 Oxygen saturation 2 L 96% exam of her chest shows occasional crackles there are no wheezes cardiac exam shows an irregular rhythm Impression/Plan Impression/Plan Impression/Plan: 81-year-old woman with multiple medical problems admitted with pulmonary edema, complicated by influenza Recommendations: Continue Tamiflu and negative fluid balance as recommended by cardiology. BiPAP when necessary. Taper FiO2 his saturations allow. Continue to monitor renal function.
--- NOTE | 2017-04-28 10:49 | PN- Infect Dx ---
Subjective Subjective: No fever. Cough and SOB present. Review of Systems Comments: 12 points reviewed as noted, otherwise negative. Objective Last 24 Hrs of Vital Signs/I&O Vital Signs Date Time Temp Pulse Resp B/P B/P Pulse O2 O2 Flow FiO2 Mean Ox Delivery Rate 04/28 0934 146/82 04/28 0934 92 146/82 04/28 0800 Nasal 2.0L Cannula 04/28 0603 97.4 83 24 124/72 96 Nasal Cannula 04/28 0045 96 Nasal 2.0L Cannula 04/27 2301 97.8 92 24 102/60 96 Nasal 2.0L Cannula 04/27 2257 Nasal 2.0L Cannula 04/27 2117 77 102/68 04/27 2116 77 102/68 04/27 1626 80 120/70 04/27 1523 Nasal 2.0L Cannula 04/27 1512 97.8 75 20 120/70 99 Nasal 5.0L Cannula 04/27 1458 Nasal 2.0L Cannula Intake & Output 04/28 1600 04/28 0800 04/28 0000 Intake Total 250 310 Output Total Balance 250 310 Intake, IV 10 Intake, Oral 250 300 Physical Exam Other Physical Findings: Afebrile. She is awake and alert in no acute distress. Skin reveals no rash. HEENT slight erythema of the uvula, with no exudate. Neck is supple with no adenopathy. Lungs BS present, b/l rhonchi/wheezes. Heart irregular rhythm with no murmur. Abdomen is soft, nontender with positive bowel sounds. Back no CVA tenderness. Extremities trace edema both lower extremities. Neuro paraplegia. Mishra catheter is in place. Results Last 24 Hours of Lab Results: Laboratory Tests 04/28 0615 Chemistry Sodium (137 - 145 mmol/L) 135 L Potassium (3.5 - 5.1 mmol/L) 4.6 Chloride (98 - 107 mmol/L) 87 L Carbon Dioxide (22 - 30 mmol/L) 36 H Anion Gap (5 - 16) 12 BUN (7 - 17 mg/dL) 43 H Creatinine (0.5 - 1.0 mg/dL) 1.1 H Estimated GFR (>60 ml/min) 48 L BUN/Creatinine Ratio (7 - 25 %) 39.1 H Hematology CBC w Diff NO MAN DIFF REQ WBC (4.8 - 10.8 /CUMM) 7.4 RBC (4.20 - 5.40 /CUMM) 3.31 L Hgb (12.0 - 16.0 G/DL) 9.7 L Hct (37 - 47 %) 29.8 L MCV (81.0 - 99.0 FL) 89.9 MCH (27.0 - 31.0 PG) 29.4 MCHC (33.0 - 37.0 G/DL) 32.7 L RDW (11.5 - 14.5 %) 14.7 H Plt Count (130 - 400 /CUMM) 390 MPV (7.4 - 10.4 FL) 8.0 Gran % (42.2 - 75.2 %) 76.4 H Lymphocytes % (20.5 - 51.1 %) 14.8 L Monocytes % (1.7 - 9.3 %) 8.7 Eosinophils % (0 - 5 %) 0 Basophils % (0.0 - 2.0 %) 0.1 Absolute Granulocytes (1.4 - 6.5 /CUMM) 5.7 Absolute Lymphocytes (1.2 - 3.4 /CUMM) 1.1 L Absolute Monocytes (0.10 - 0.60 /CUMM) 0.6 Absolute Eosinophils (0.0 - 0.7 /CUMM) 0 Absolute Basophils (0.0 - 0.2 /CUMM) 0 Last 24 Hours of Twan Results: Procedure Result > RAPID VIRAL INFLUENZA A/B Final 04/26/17 POSITIVE FOR INFLUENZA TYPE B Called to/readback by: NADEEM SPEC #: [id number] ELAINE: 04/27/17 STATUS: COLB RECD: - SUBM DR: Katina Gerardo MD SOURCE: LOWER RESP ENTR: 04/27/[address]: Angela VENCES,Iona SPDESC: SPUTUM Jose VENCES,Sindhu Ibrahim MD,Westley Cazares ORDERED: LOWER RESPIRATO Procedure Result LOWER RESPIRATO PENDING RECEIPT Recent Imaging Studies: CTA IMPRESSION: 1. No pulmonary embolism. 2. Atherosclerotic disease of coronary arteries, cardiomegaly, persistent interstitial edema and small pleural effusions. The pleural effusions have decreased in size compared to 04/19/2017. 3. Interval worsening of patchy opacity in the left upper lobe and lower lobes, suspicious for pneumonia. DICTATED BY: Hans Bravo MD DATE/TIME DICTATED:04/26/171425 COLLAR STITCHER:ADAM DATE/TIME TRANSCRIBED:04/26/171425 CONFIDENTIAL, DO NOT COPY WITHOUT APPROPRIATE AUTHORIZATION. 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, DM2, HTN, CAD, status post stent, PAF, status post CVA, maintained on Eliquis, CHF, COPD O2 dependent, recurrent UTI, maintained on a SC protocol at home, hospitalized twice in the past 2 weeks for rapid atrial fibrillation and shortness of breath, treated with antibiotics on both hospitalizations and steroids on the second, readmitted on Apr 26 with the acute onset of shortness of breath, associated with a persistent cough and chest heaviness, found to be afebrile with a white blood cell count of 19,000 a markedly elevated BNP and a positive rapid flu swab, with a CTA of the chest revealing persistent interstitial edema and small pleural effusions, with interval worsening of patchy opacities in the left upper lobe and both lower lobes. Suggestion: 1. Sputum culture if productive cough 2. Cont droplet precautions 3. Continue Tamiflu D #2/5(dosed per pharmacy)
[2017-04-28 14:20] VITALS: BP 132/70
--- NOTE | 2017-04-28 16:52 | PN- Att Addend ---
Attending MD Review Statement Attending Statement Attending MD Statement: examined this patient, discuss w/resident/PA/CATALOGUE ILLUSTRATOR, reviewed EMR data (avail), discussed w/nursing Attending Assessment/Plan: Laboratory Tests 04/28/17 0615: Anion Gap 12, Estimated GFR 48 L, BUN/Creatinine Ratio 39.1 H, CBC w Diff NO MAN DIFF REQ, RBC 3.31 L, MCV 89.9, MCH 29.4, MCHC 32.7 L, RDW 14.7 H, MPV 8.0, Gran % 76.4 H, Lymphocytes % 14.8 L, Monocytes % 8.7, Eosinophils % 0, Basophils % 0.1, Absolute Granulocytes 5.7, Absolute Lymphocytes 1.1 L, Absolute Monocytes 0.6, Absolute Eosinophils 0, Absolute Basophils 0 Vital Signs Date Time Temp Pulse Resp B/P B/P Pulse O2 O2 Flow FiO2 Mean Ox Delivery Rate 04/28 1600 Nasal 2.0L Cannula 04/28 1545 65 122/78 04/28 1420 97.5 82 22 132/70 98 Nasal 2.0L Cannula 04/28 1004 95 Nasal 2.0L Cannula 04/28 0934 146/82 04/28 0934 92 146/82 04/28 0800 Nasal 2.0L Cannula 04/28 0603 97.4 83 24 124/72 96 Nasal Cannula 04/28 0045 96 Nasal 2.0L Cannula 04/27 2301 97.8 92 24 102/60 96 Nasal 2.0L Cannula 04/27 2257 Nasal 2.0L Cannula 04/27 2116 77 102/68 04/27 2115 77 102/68 81-year-old F with PMH of paraplegia secondary to spinal cord injury, diabetes, paroxysmal atrial fibrillation on anticoagulation, CAD status post [place] status post stent placement, FHPEF, COPD on 2 L home oxygen, interstitial lung disease, lung cancer status post right upper lobe resection, history of colon cancer status post sigmoid resection and Gem's thyroiditis, recent admission at [facility] was discharged on 04/20 treated for a fib with RVR and UTI came in with cc of acute shortness of breath since day of admission and was found to be in acute hypoxic resp failure requiring cpap and NRB in er initially. ABG at admission showed ph of 7.3 and pCo2 of 55. Influenza- pt on tamiflu. cont on that for 5 days. pulm and ID following. Acute diastolic chf exacerbation- will hold lasix dose secondary to increased cr and increased bun. If better tomorrow will start her on po lasix in am. Changed diet to low sodium diet. Acute hypoxic and hypercarbic resp failure- resolving. f/u on pulm recommendations.
[2017-04-28 23:26] VITALS: BP 142/70
[2017-04-29 07:54] LABS: ABSOLUTE BASOPHIL COUNT 0 /CUMM (0.0-0.2); ABSOLUTE EOSINOPHIL COUNT 0.1 /CUMM (0.0-0.7); ABSOLUTE GRANULOCYTE CT 6.6 /CUMM (1.4-6.5); ABSOLUTE LYMPH COUNT 2.1 /CUMM (1.2-3.4); ABSOLUTE MONOCYTE COUNT 0.8 /CUMM (0.10-0.60); BASOPHIL % 0.2 % (0.0-2.0); EOSINOPHIL % 0.8 % (0-5); GRANULOCYTE % 69.1 % (42.2-75.2); HEMATOCRIT 30.8 % (37-47); MEAN CORPUSCULAR HGB CONC 32.1 G/DL (33.0-37.0); MEAN CORPUSCULAR VOLUME 90.4 FL (81.0-99.0); PLATELET COUNT 436 /CUMM (130-400); RBC DISTRIBUTION WIDTH 14.9 % (11.5-14.5); RED BLOOD CELL CT 3.41 /CUMM (4.20-5.40); WHITE BLOOD CELL COUNT 9.6 /CUMM (4.8-10.8)
--- NOTE | 2017-04-29 09:08 | PN- Housestaff ---
MargaretjoyceGustabomelba 04/29/17 0907: Subjective Follow-up For: Flu Acute on chronic respiratory failure A. fib CHF exacerbation Complaints: no complaints Subjective: STABLE Review of Systems Constitutional: Reports: see HPI. Objective Last 24 Hrs of Vital Signs/I&O Vital Signs Date Time Temp Pulse Resp B/P B/P Pulse O2 O2 Flow FiO2 Mean Ox Delivery Rate 04/29 1835 97 Nasal 2.0L Cannula 04/29 1607 84 138/72 04/29 1600 97 Nasal 2.0L Cannula 04/29 1422 98.2 94 18 138/62 97 Room Air 04/29 1115 95 Nasal 2.0L Cannula 04/29 0931 86 142/70 04/29 0800 94 Nasal 2.0L Cannula 04/29 0446 94 Nasal 2.0L Cannula 04/29 0000 Nasal 2.0L Cannula 04/28 2326 97.5 86 28 142/70 100 Nasal Cannula 04/28 2110 87 140/72 04/28 2109 87 140/72 Intake & Output 04/29 1600 04/29 0800 04/29 0000 Intake Total 360 240 460 Output Total Balance 360 240 460 Intake, Oral 360 240 460 Number 2 Bowel Movements Physical Exam General Appearance: Alert, Oriented X3 Cardiovascular: Normal S1, Normal S2 Lungs: Clear to Auscultation, Normal Air Movement Abdomen: Normal Bowel Sounds, Soft, No Tenderness Extremities: Normal Pulses Assessment/Plan Assessment: This is a 81-year-old lady with multiple comorbidities including CAD status post SC stent placement,HFPrEF, paroxysmal A. fib on anticoagulation, diabetes COPD on 2 L home oxygen, ILD, lung carcinoma status post right upper lobe resection, presents with acute hypoxic hypercarbic respiratory failure in the setting of positive flu. During hospital stay we will address following problems Problem #1 acute on chronic hypoxic hypercarbic respiratory failure. * ct lasix at 40 mg od * TRC and nebulization * Supplemental oxygen to keep oxygen saturation more than 90% Problem #[address] therapeutic dose of Tamiflu which is 30 twice a day according to her creatinine clearance and age. Problem #3 atrial fibrillation Her heart rate being reasonably controlled on current regimen of Cardizem and metoprolol. It was discussed with Dr. Langley whether to start her back on amiodarone for better rate control which he is not convinced at the moment but we will wait for the final recommendations by cardiology. She was continued on Eliquis. Problem #4 history of Gem's thyroiditis We have decreased her dose of levothyroxine to 75 MCG from 88 MCG. Problem #5 history of diabetes We will hold her metformin and start her on insulin according to sliding scale. Problem #6 history of CAD We will continue her home dose of atorvastatin and metoprolol Problem List: 1. Acute respiratory failure with hypoxia and hypercarbia 2. Influenza B 3. Lactic acidosis 4. Bronchitis Pain Ratin Pain Location: .. Pain Goal: Remain pain free Pain Plan: CURRENT PLAN [facility] Labs & Rationales: .. WahlJesús mitchellkristie 04/29/17 1533: Attending MD Review Statement Attending Statement Attending MD Statement: examined this patient, discuss w/resident/PA/DRYING MACHINE BACK TENDER, agreed w/resident/PA/DRYING MACHINE BACK TENDER, reviewed EMR data (avail), discussed with nursing Attending Assessment/Plan: 81-year-old F with PMH of paraplegia secondary to spinal cord injury, diabetes, paroxysmal atrial fibrillation on anticoagulation, CAD status post SC status post stent placement, FHPEF, COPD on 2 L home oxygen, interstitial lung disease, lung cancer status post right upper lobe resection, history of colon cancer status post sigmoid resection and Gem's thyroiditis, recent admission at [facility] was discharged on 04/20 treated for a fib with RVR and UTI came in with cc of acute shortness of breath since day of admission and was found to be in acute hypoxic resp failure requiring cpap and NRB in er initially. ABG at admission showed ph of 7.3 and pCo2 of 55. Influenza- pt on tamiflu. cont on that for 5 days. pulm and ID following. Acute diastolic chf exacerbation- d/w cardiology the increasing bicarbonate and contraction. Changed to po 40mg lasix for now. Changed diet to low sodium diet. f/u on renal panel daily. Acute hypoxic and hypercarbic resp failure- resolving. f/u on pulm recommendations.
--- NOTE | 2017-04-29 10:16 | PN- Pulmonary ---
Subjective HPI/Critical Care Issues: Patient feels her cough is somewhat improved Objective Current Medications: Current Medications Sig/Jonel Start time Last Medication Dose Route Stop Time Status Admin Albuterol Sulfate 3 ML BID 04/27 1002 AC 04/29 INH 0439 Apixaban 5 MG BID 04/26 2200 AC 04/29 PO 0931 Atorvastatin Calcium 10 MG 1700 04/27 1700 AC 04/28 PO 1543 Benzonatate 100 MG ONCE ONE 04/29 0430 DC 04/29 PO 04/29 0431 0424 Cholecalciferol 2,000 IU DAILY 04/27 1000 AC 04/29 PO 0931 Diclofenac Sodium 1 JC 4 TIMES/DAY PRN 04/26 1830 AC 04/28 TOP 0935 Diltiazem HCl 60 MG TID 04/26 2200 AC 04/29 PO 0931 Furosemide 60 MG DAILY 04/27 1000 DC 04/28 IV 0933 Guaifenesin 600 MG Q12 04/26 2200 AC 04/29 PO 0931 Insulin Aspart 0 TIDAC 04/27 0800 AC 04/27 SC 1232 Levothyroxine Sodium 0.075 MG DAILY AC 04/27 0500 AC 04/29 PO 0651 Lorazepam 0.5 MG Q6P PRN 04/27 1645 AC 04/29 PO 05/04 1644 0250 Metoprolol Tartrate 25 MG BID 04/26 2200 AC 04/29 PO 0931 Oseltamivir Phosphate 30 MG BID 04/27 2200 AC 04/29 PO 05/01 220 0931 Vital Signs & I&O Last 24 Hrs of Vitals and I&O: Vital Signs Date Time Temp Pulse Resp B/P B/P Pulse O2 O2 Flow FiO2 Mean Ox Delivery Rate 04/29 0931 86 142/70 04/29 0446 94 Nasal 2.0L Cannula 04/29 0000 Nasal 2.0L Cannula 04/28 2326 97.5 86 28 142/70 100 Nasal Cannula 04/28 2110 87 140/72 04/28 2109 87 140/72 04/28 1843 93 Nasal 2.0L Cannula 04/28 1600 Nasal 2.0L Cannula 04/28 1545 65 122/78 04/28 1420 97.5 82 22 132/70 98 Nasal 2.0L Cannula Intake & Output 04/29 1600 04/29 0800 04/29 0000 Intake Total 240 460 Output Total Balance 240 460 Intake, Oral 240 460 Number 2 Bowel Movements Impression/Plan Impression/Plan Impression/Plan: 81-year-old woman with multiple medical problems admitted with pulmonary edema, complicated by influenza she is developing prerenal azotemia with elevated BUNs and bicarbonate. Recommendations: Continue Tamiflu query cardiology regarding reducing diuretics in view of prerenal azotemia and increasing bicarbonate. Replete potassium.
--- NOTE | 2017-04-29 11:20 | PN- Infect Dx ---
Subjective Subjective: Cough improved; feeling much better; good appetite. No fever. Review of Systems Comments: 12 points reviewed as noted, otherwise negative. Objective Last 24 Hrs of Vital Signs/I&O Vital Signs Date Time Temp Pulse Resp B/P B/P Pulse O2 O2 Flow FiO2 Mean Ox Delivery Rate 04/29 0931 86 142/70 04/29 0446 94 Nasal 2.0L Cannula 04/29 0000 Nasal 2.0L Cannula 04/28 2326 97.5 86 28 142/70 100 Nasal Cannula 04/28 2110 87 140/72 04/28 2109 87 140/72 04/28 1843 93 Nasal 2.0L Cannula 04/28 1600 Nasal 2.0L Cannula 04/28 1545 65 122/78 04/28 1420 97.5 82 22 132/70 98 Nasal 2.0L Cannula Intake & Output 04/29 1600 04/29 0800 04/29 0000 Intake Total 240 460 Output Total Balance 240 460 Intake, Oral 240 460 Number 2 Bowel Movements Physical Exam Other Physical Findings: Afebrile. She is awake and alert in no acute distress. Skin reveals no rash. HEENT slight erythema of the uvula, with no exudate. Neck is supple with no adenopathy. Lungs BS present, b/l rhonchi/wheezes. Heart irregular rhythm with no murmur. Abdomen is soft, nontender with positive bowel sounds. Back no CVA tenderness. Extremities trace edema both lower extremities. Neuro paraplegia. Mishra catheter is in place Results Last 24 Hours of Lab Results: Laboratory Tests 04/29 0635 Chemistry Sodium (137 - 145 mmol/L) 140 Potassium (3.5 - 5.1 mmol/L) 4.5 Chloride (98 - 107 mmol/L) 89 L Carbon Dioxide (22 - 30 mmol/L) 41 H Anion Gap (5 - 16) 10 BUN (7 - 17 mg/dL) 44 H Creatinine (0.5 - 1.0 mg/dL) 0.9 Estimated GFR (>60 ml/min) > 60 BUN/Creatinine Ratio (7 - 25 %) 48.9 H Hematology CBC w Diff NO MAN DIFF REQ WBC (4.8 - 10.8 /CUMM) 9.6 RBC (4.20 - 5.40 /CUMM) 3.41 L Hgb (12.0 - 16.0 G/DL) 9.9 L Hct (37 - 47 %) 30.8 L MCV (81.0 - 99.0 FL) 90.4 MCH (27.0 - 31.0 PG) 29.0 MCHC (33.0 - 37.0 G/DL) 32.1 L RDW (11.5 - 14.5 %) 14.9 H Plt Count (130 - 400 /CUMM) 436 H MPV (7.4 - 10.4 FL) 8.0 Gran % (42.2 - 75.2 %) 69.1 Lymphocytes % (20.5 - 51.1 %) 22.1 Monocytes % (1.7 - 9.3 %) 7.8 Eosinophils % (0 - 5 %) 0.8 Basophils % (0.0 - 2.0 %) 0.2 Absolute Granulocytes (1.4 - 6.5 /CUMM) 6.6 H Absolute Lymphocytes (1.2 - 3.4 /CUMM) 2.1 Absolute Monocytes (0.10 - 0.60 /CUMM) 0.8 H Absolute Eosinophils (0.0 - 0.7 /CUMM) 0.1 Absolute Basophils (0.0 - 0.2 /CUMM) 0 Last 24 Hours of Twan Results: Reviewed SPEC #: [id number] ELAINE: 04/27/17 STATUS: CAN RECD: - SUBM DR: Akin VENCES,Katina SOURCE: LOWER RESP ENTR: 04/27/[address]: Angela VENCES,Iona SPDESC: SPUTUM Jose VENCES,Sindhu Ibrahim MD,Westley Cazares ORDERED: LOWER RESPIRATO Procedure Result CANCELLED SPECIMEN NOT RECEIVED IN LABORATORY Recent Imaging Studies: Reviewed Assessment/Plan Impression: 81-year-old woman known w/ 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 19 years ago, DM2, HTN, CAD, status post stent, PAF, status post CVA, maintained on Eliquis, CHF, COPD O2 dependent, recurrent UTI, maintained on a SC protocol at home, hospitalized twice in the past 2 weeks for rapid atrial fibrillation and shortness of breath, treated with antibiotics on both hospitalizations and steroids on the second, readmitted on Apr 26 with the acute onset of shortness of breath, associated with a persistent cough and chest heaviness, found to be afebrile with a white blood cell count of 19,000 a markedly elevated BNP and a positive rapid flu swab for influenza B, with a CTA of the chest revealing persistent interstitial edema and small pleural effusions, with interval worsening of patchy opacities in the left upper lobe and both lower lobes. Currently afebrile; nl WBC count. Suggestion: 1. Sputum culture if developing productive cough 2. Cont droplet precautions 3. Continue Tamiflu D #3/5(dosed per pharmacy)
--- NOTE | 2017-04-29 11:58 | PN- Cardiology ---
Subjective Subjective: The patient continues to have a frequent cough. Shortness of breath is improving. No chest pain. No palpitations. Diuretics are on hold because of evidence of acute kidney injury. Objective Vital Signs and I&Os Vital Signs Date Time Temp Pulse Resp B/P B/P Pulse O2 O2 Flow FiO2 Mean Ox Delivery Rate 04/29 1115 95 Nasal 2.0L Cannula 04/29 0931 86 142/70 04/29 0800 94 Nasal 2.0L Cannula 04/29 0446 94 Nasal 2.0L Cannula 04/29 0000 Nasal 2.0L Cannula 04/28 2326 97.5 86 28 142/70 100 Nasal Cannula 04/28 2110 87 140/72 04/28 2109 87 140/72 04/28 1843 93 Nasal 2.0L Cannula 04/28 1600 Nasal 2.0L Cannula 04/28 1545 65 122/78 04/28 1420 97.5 82 22 132/70 98 Nasal 2.0L Cannula Intake & Output 04/29 1600 04/29 0800 04/29 0000 04/28 1600 04/28 0800 04/28 0000 Intake Total 240 460 500 250 310 Output Total Balance 240 460 500 250 310 Intake, IV 10 Intake, Oral 240 460 500 250 300 Number 2 1 Bowel Movements Physical Exam: General: WD/overweight female in mild distress; alert and oriented x 3 HEETN: NC/AT, PERRL, EOMI Neck: no JVD, no carotid bruit Heart: irregularly irregular Lungs: decreased breath sounds bilaterally without crackles Abdomen: soft, obese, NT, +ve bowel sounds Extremities: no edema Neuro: bilateral lower extremity paralysis Current Medications: Current Medications Sig/Jonel Start time Last Medication Dose Route Stop Time Status Admin Albuterol Sulfate 3 ML BID 04/27 1002 AC 04/29 INH 1112 Apixaban 5 MG BID 04/26 2200 AC 04/29 PO 0931 Atorvastatin Calcium 10 MG 1700 04/27 1700 AC 04/28 PO 1543 Benzonatate 100 MG ONCE ONE 04/29 0430 DC 04/29 PO 04/29 0431 0424 Cholecalciferol 2,000 IU DAILY 04/27 1000 AC 04/29 PO 0931 Diclofenac Sodium 1 JC 4 TIMES/DAY PRN 04/26 1830 AC 04/28 TOP 0935 Diltiazem HCl 60 MG TID 04/26 2200 AC 04/29 PO 0931 Guaifenesin 600 MG Q12 04/260 AC 04/29 PO 0931 Insulin Aspart 0 TIDAC 04/27 0800 AC 04/27 SC 1232 Levothyroxine Sodium 0.075 MG DAILY AC 04/27 0500 AC 04/29 PO 0651 Lorazepam 0.5 MG Q6P PRN 04/27 1645 AC 04/29 PO 05/04 1644 0250 Metoprolol Tartrate 25 MG BID 04/26 2199 AC 04/29 PO 0931 Oseltamivir Phosphate 30 MG BID 04/27 2199 AC 04/29 PO 05/01 220 0931 Results Last 48 Hrs of Labs/Mics: Laboratory Tests 04/29/17 0635: Anion Gap 10, Estimated GFR > 60, BUN/Creatinine Ratio 48.9 H, CBC w Diff NO MAN DIFF REQ, RBC 3.41 L, MCV 90.4, MCH 29.0, MCHC 32.1 L, RDW 14.9 H, MPV 8.0, Gran % 69.1, Lymphocytes % 22.1, Monocytes % 7.8, Eosinophils % 0.8, Basophils % 0.2, Absolute Granulocytes 6.6 H, Absolute Lymphocytes 2.1, Absolute Monocytes 0.8 H, Absolute Eosinophils 0.1, Absolute Basophils 0 04/28/17 0615: Anion Gap 12, Estimated GFR 48 L, BUN/Creatinine Ratio 39.1 H, CBC w Diff NO MAN DIFF REQ, RBC 3.31 L, MCV 89.9, MCH 29.4, MCHC 32.7 L, RDW 14.7 H, MPV 8.0, Gran % 76.4 H, Lymphocytes % 14.8 L, Monocytes % 8.7, Eosinophils % 0, Basophils % 0.1, Absolute Granulocytes 5.7, Absolute Lymphocytes 1.1 L, Absolute Monocytes 0.6, Absolute Eosinophils 0, Absolute Basophils 0 Microbiology 04/27 1429 URINE ROUT: Legionella Antigen - COMP Assessment/Plan Assessment/Plan Assessment: 1. Atrial fibrillation 2. Chronic diastolic heart failure 3. Influenza infection 4. Acute kidney injury, improved Plan: * Would start oral Lasix 40 mg daily * Monitor input and output * Basic metabolic profile daily Continue telemetry? Yes
[2017-04-29 14:22] VITALS: BP 138/62
[2017-04-29 23:02] VITALS: BP 120/80
[2017-04-30 06:35] VITALS: BP 106/72
--- NOTE | 2017-04-30 08:13 | PN- Housestaff ---
Katina Gerardo 04/30/17 0813: Subjective Follow-up For: Flu Acute on chronic respiratory failure A. fib CHF exacerbation epistaxis Subjective: Patient was seen and examined this morning. She was lying comfortably on bed but she has bleeding through left nostril. Her left nostril had/stricturing of blood. I packed her nostril with bleeding and on be checking she had some clotting but still her nostril was raw. ENT was called and I spoke with Dr. Rehman and was instructed to put to cottonball soaked with Afrin spray. Review of Systems Constitutional: Denies: chills, malaise. EENTM: Reports: epistaxis. Cardiovascular: Denies: edema, orthopena. Respiratory: Reports: cough, short of breath. Gastrointestinal: Denies: abdominal pain, diarrhea. Objective Last 24 Hrs of Vital Signs/I&O Vital Signs Date Time Temp Pulse Resp B/P B/P Pulse O2 O2 Flow FiO2 Mean Ox Delivery Rate 04/30 1417 97.7 99 20 130/70 90 Room Air 04/30 0919 97.4 82 106/72 04/30 0919 97.4 82 106/72 04/30 0826 91 Room Air 04/30 0800 91 Nasal 2.0L Cannula 04/30 0635 97.4 82 20 106/72 92 Room Air 04/30 0000 Nasal 2.0L Cannula 04/29 2302 98.7 90 20 120/80 95 04/29 2145 81 142/74 04/29 2145 81 142/74 04/29 1835 97 Nasal 2.0L Cannula Intake & Output 04/30 1600 04/30 0800 04/30 0000 Intake Total 720 300 400 Output Total Balance 720 300 400 Intake, Oral 720 300 400 Number 1 Bowel Movements Physical Exam General Appearance: Alert, Oriented X3, Cooperative, No Acute Distress Cardiovascular: Normal S1, Normal S2, irregularly irregular Lungs: bilateral ronchi Current Medications: Current Medications Sig/Jonel Start time Last Medication Dose Route Stop Time Status Admin Albuterol Sulfate 3 ML BID 04/27 1002 AC 04/30 INH 0826 Apixaban 5 MG BID 04/26 2200 AC 04/30 PO 0919 Atorvastatin Calcium 10 MG 1700 04/27 1700 AC 04/29 PO 1603 Cholecalciferol 2,000 IU DAILY 04/27 1000 AC 04/30 PO 0918 Diclofenac Sodium 1 JC 4 TIMES/DAY PRN 04/26 1830 AC 04/28 TOP 0935 Diltiazem HCl 60 MG TID 04/26 2200 AC 04/30 PO 0919 Furosemide 40 MG DAILY 04/30 1000 AC 04/30 PO 0919 Guaifenesin 600 MG Q12 04/26 2200 AC 04/30 PO 0918 Insulin Aspart 0 TIDAC 04/27 0800 AC 04/29 SC 1235 Levothyroxine Sodium 0.075 MG DAILY AC 04/27 0500 AC 04/30 PO 0501 Lorazepam 0.5 MG Q6P PRN 04/27 1645 AC 04/30 PO 05/04 1644 1418 Metoprolol Tartrate 25 MG BID 04/26 2200 AC 04/30 PO 0919 Oseltamivir Phosphate 30 MG BID 04/27 2199 AC 04/30 PO 05/01 220 0918 Oxymetazoline HCl 2 SPRAY ONCE ONE 04/30 1445 DC CHASE 04/30 1446 Sodium Chloride 2 SPRAY Q4P PRN 04/30 0700 DC 04/30 CHASE 0922 Last 24 Hrs of Lab/Twan Results Last 24 Hrs of Labs/Mics: Laboratory Tests 04/30/17 0632: Anion Gap 9, Estimated GFR > 60, BUN/Creatinine Ratio 44.3 H, CBC w Diff NO MAN DIFF REQ, RBC 3.27 L, MCV 89.2, MCH 29.6, MCHC 33.2, RDW 14.9 H, MPV 8.1, Gran % 70.8, Lymphocytes % 21.8, Monocytes % 4.8, Eosinophils % 2.2, Basophils % 0.4, Absolute Granulocytes 6.3, Absolute Lymphocytes 1.9, Absolute Monocytes 0.4, Absolute Eosinophils 0.2, Absolute Basophils 0 Assessment/Plan Assessment: This is a 81-year-old lady with multiple comorbidities including CAD status post VA stent placement,HFPrEF, paroxysmal A. fib on anticoagulation, diabetes COPD on 2 L home oxygen, ILD, lung carcinoma status post right upper lobe resection, presents with acute hypoxic hypercarbic respiratory failure in the setting of positive flu. During hospital stay we will address following problems Problem #1 acute on chronic hypoxic hypercarbic respiratory failure. * ct lasix at 40 mg od * TRC and nebulization * Supplemental oxygen to keep oxygen saturation more than 90% Problem #[address] therapeutic dose of Tamiflu which is 30 twice a day according to her creatinine clearance and age. taiflu day 4 will give last dose tomorrow Problem #3 atrial fibrillation Her heart rate being reasonably controlled on current regimen of Cardizem and metoprolol. It was discussed with Dr. Langley whether to start her back on amiodarone for better rate control which he is not convinced at the moment but we will wait for the final recommendations by cardiology. She was continued on Eliquis. Problem #4 history of Gem's thyroiditis We have decreased her dose of levothyroxine to 75 MCG from 88 MCG. Problem #5 history of diabetes We will hold her metformin and start her on insulin according to sliding scale. Problem #6 history of CAD We will continue her home dose of atorvastatin and metoprolol Problem #7 left nostril epistaxis Patient had an episode of epistaxis this morning which initially was tried to manage with gauze packing. Later ENT Dr. Rehman came in and packed her nose with Merocel packing and instruction are to remove after a week at his office. We will keep Eliquis and we will watch for any further bleeding. Problem List: 1. Atrial fibrillation Pain Ratin Pain Location: na Pain Goal: Remain pain free Pain Plan: tylenol Tomorrow's Labs & Rationales: bep and cbc Angela VENCES,Iona 04/30/171928: Attending MD Review Statement Attending Statement Attending MD Statement: examined this patient, discuss w/resident/PA/CYCLE COUNTER, agreed w/resident/PA/CYCLE COUNTER, reviewed EMR data (avail), discussed with nursing, discussed with case mgmt, amended to note Attending Assessment/Plan: Patient seen and examined. Lying in bed and not in acute distress. Overnight epistaxis predominantly from the left nostril. She continues to be lethargic but denies any chest pain shortness of breath at rest. Reports mild cough. She is afebrile hemodynamically stable. On telemetry she remains in atrial fibrillation with controlled ventricular response. On examination she has mild diffuse rhonchi. She has nasal packing in the left nostril. She has no jugular venous distention. She has no peripheral edema. Problems: 1. Acute on chronic hypoxic respiratory failure secondary to influenza. 2. Atrial fibrillation; on anticoagulation 3. History of Gem thyroiditis 4. Epistaxis 5. Chronic diastolic heart failure. Plan: -Continue Tamiflu to complete course. -Continue bronchodilator therapy and oxygen supplementation for COPD. Hold off systemic steroid therapy for now. Chest x-ray shows improved aeration. -She does not appear clinically volume overloaded. Chest x-ray shows improvement compared to previous x-ray that showed pulmonary congestion. Diuretics were held over the weekend due to evidence of volume contraction. She has resumed on oral diuretics therapy today. -She is currently rate controlled on Cardizem and beta juaquin therapy. Case was discussed with the cardiology service. There is currently no plan to begin patient on amiodarone givenresponse in the past as well her history of ILD and thyroid disorder. -Her TSH remains WNL however her free T4 is trending upwards again. Her levothyroxine had been decreased from 100 g to 88 g daily and doing a month. in view of the rising free T4 her dose has been decreased further down to 75 g. Recommend follow-up with the endocrinology service. -This months ahead hospitalization this month. She was initially admitted for A. fib with rapid ventricular response. At that time she also was treated for bronchitis. A second admission she again had A. fib with rapid ventricular response but this time of a urinary tract infection. Now she is admitted in A. fib with RVR presumed to be secondary to her influenza infection. She is bedbound and not a candidate for rehabilitation snf facility. She is adamant on being discharged home. -She developed epistaxis overnight likely due to the oxygen supplementation. She has been evaluated by the ENT service.
[2017-04-30 08:36] LABS: ABSOLUTE BASOPHIL COUNT 0 /CUMM (0.0-0.2); ABSOLUTE EOSINOPHIL COUNT 0.2 /CUMM (0.0-0.7); ABSOLUTE GRANULOCYTE CT 6.3 /CUMM (1.4-6.5); ABSOLUTE LYMPH COUNT 1.9 /CUMM (1.2-3.4); ABSOLUTE MONOCYTE COUNT 0.4 /CUMM (0.10-0.60); BASOPHIL % 0.4 % (0.0-2.0); EOSINOPHIL % 2.2 % (0-5); GRANULOCYTE % 70.8 % (42.2-75.2); HEMATOCRIT 29.1 % (37-47); MEAN CORPUSCULAR HGB 29.6 PG (27.0-31.0); MEAN CORPUSCULAR HGB CONC 33.2 G/DL (33.0-37.0); MEAN CORPUSCULAR VOLUME 89.2 FL (81.0-99.0); MEAN PLATELET VOLUME 8.1 FL (7.4-10.4); PLATELET COUNT 436 /CUMM (130-400); RBC DISTRIBUTION WIDTH 14.9 % (11.5-14.5); RED BLOOD CELL CT 3.27 /CUMM (4.20-5.40); WHITE BLOOD CELL COUNT 8.8 /CUMM (4.8-10.8)
--- NOTE | 2017-04-30 09:46 | RADIOLOGY REPORT ---
EXAMINATION: XR PORTABLE CHEST CLINICAL INFORMATION: Shortness of breath COMPARISON: Chest x-rays from 04/22/2017 and 04/26/2017. Chest CT from 04/26/2017. TECHNIQUE: Portable frontal view of the chest was obtained. FINDINGS: The cardiomediastinal silhouette is stable. There is calcification of the aortic knob. The heart size is top normal for technique. The right lung appears better aerated than on the most recent prior study. There is some residual platelike and linear opacity in the mid to lower right lung as well as the left midlung. No developing consolidation. There is a trace right pleural effusion. No eric pulmonary edema. No pneumothoraces. No acute osseous abnormalities are visualized. Lower thoracic posterior fusion hardware is redemonstrated. IMPRESSION: Improved aeration of the right lung relative to the prior study with some residual streaky/linear opacities in both lungs suggesting some atelectasis or scar.
--- NOTE | 2017-04-30 10:18 | PN- Pulmonary ---
Subjective HPI/Critical Care Issues: Ongoing epistaxis Still has a cough Objective Current Medications: Current Medications Sig/Jonel Start time Last Medication Dose Route Stop Time Status Admin Albuterol Sulfate 3 ML BID 04/27 1002 AC 04/30 INH 0826 Apixaban 5 MG BID 04/26 2200 AC 04/30 PO 0919 Atorvastatin Calcium 10 MG 1700 04/27 1700 AC 04/29 PO 1603 Cholecalciferol 2,000 IU DAILY 04/27 1000 AC 04/30 PO 0918 Diclofenac Sodium 1 JC 4 TIMES/DAY PRN 04/26 1830 AC 04/28 TOP 0935 Diltiazem HCl 60 MG TID 04/26 2200 AC 04/30 PO 0919 Furosemide 40 MG DAILY 04/30 1000 AC 04/30 PO 0919 Guaifenesin 600 MG Q12 04/26 2200 AC 04/30 PO 0918 Insulin Aspart 0 TIDAC 04/27 0800 AC 04/29 SC 1235 Levothyroxine Sodium 0.075 MG DAILY AC 04/27 0500 AC 04/30 PO 0501 Lorazepam 0.5 MG Q6P PRN 04/27 1645 AC 04/29 PO 05/04 1644 1435 Metoprolol Tartrate 25 MG BID 04/26 2200 AC 04/30 PO 0919 Oseltamivir Phosphate 30 MG BID 04/27 2199 AC 04/30 PO 05/01 220 0918 Sodium Chloride 2 SPRAY Q4P PRN 04/30 0700 AC 04/30 CHASE 0922 Vital Signs & I&O Last 24 Hrs of Vitals and I&O: Vital Signs Date Time Temp Pulse Resp B/P B/P Pulse O2 O2 Flow FiO2 Mean Ox Delivery Rate 04/30 918 97.4 82 106/72 04/30 0919 97.4 82 106/72 04/30 0826 91 Room Air 04/30 0800 91 Nasal 2.0L Cannula 04/30 0635 97.4 82 20 106/72 92 Room Air 04/30 0000 Nasal 2.0L Cannula 04/29 2302 98.7 90 20 120/80 95 04/29 2145 81 142/74 04/29 2145 81 142/74 04/29 1835 97 Nasal 2.0L Cannula 04/29 1607 84 138/72 04/29 1600 97 Nasal 2.0L Cannula 04/29 1422 98.2 94 18 138/62 97 Room Air 04/29 1115 95 Nasal 2.0L Cannula Intake & Output 04/30 1600 04/30 0800 04/30 0000 Intake Total 300 400 Output Total Balance 300 400 Intake, Oral 300 400 Number 1 Bowel Movements Impression/Plan Impression/Plan Impression/Plan: General Appearance Alert, Oriented X3, Cooperative, Moderate Distress Skin No Rashes Skin Temp/Moisture Exam: Warm/Dry HEENT PERRLA, EOMI, Mucous Membr. moist/pink Cardiovascular Normal S1, Normal S2, No Murmurs Lungs b/l expiratory wheeze,basal crackles Abdomen Normal Bowel Sounds, Soft, No Tenderness Neurological Strength at 5/[address] CHEST IMPRESSION: 1. No pulmonary embolism. 2. Atherosclerotic disease of coronary arteries, cardiomegaly, persistent interstitial edema and small pleural effusions. The pleural effusions have decreased in size compared to 04/19/2017. 3. Interval worsening of patchy opacity in the left upper lobe and lower lobes, suspicious for pneumonia. 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 now presumed cured, hypertension, paroxysmal atrial fibrillation was on amiodarone (which has been stopped due to presumed toxicity before, however pt was not converted to sinus rhythm with this )and anticoagulation, previous tachycardia-induced acute pulmonary edema, drug-eluting stent to the RCA in May 2014, paraplegia, nosebleeds, chronic anemia with previous negative GI workup, recurrent bronchitis with mild interstitial lung disease, moderate obstructive pulmonary disease as well now comes in with * Resolved Acute hypoxic and hypercarbic resp failure due to acute pulm edema due to afib with rvr with flash pulm edema, compounded by influenza b pna * Rapid afib with shortness of breath with tachy cardia induced pulm edema, ct sugg of that * Mild effusion due to chf * Recent UTI * Epistaxis * Chronic anemia * Sig COPD and ILD with wheezing due to pulm edema * Paroxysmal atrial fibrillation, needs rate control med * Previous PCI with stent, * 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 * Pulmonary hypertension multifactorial * Chronic small airway disease, mild ILD on top of her mod COPD * Chronic paraplegia * Platypnea with no evidence of any shunt with previous work up for ASD or any shunt physiology neg, and no evidence of decompensated liver disease (is not short of breath while she sits in her wheel chair but cannot sit up in bed) * Chronic stable ischemic heart disease with stent as noted * Previous lung ca with no sig recurrence REC Cont current meds tamiflu Ipratropium nebs atc q6 Hold systemic steroids unless she is wheezing Reduce levoxyl now to 75 from 88 which could also precipitate tachy Will follow May need a rhinorocket and may have to hold apixaban if epistaxis gets worse
--- NOTE | 2017-04-30 12:08 | PN- Infect Dx ---
Subjective Subjective: Afebrile. She had a nosebleed this morning. She continues to complain of a cough. Objective Last 24 Hrs of Vital Signs/I&O Vital Signs Date Time Temp Pulse Resp B/P B/P Pulse O2 O2 Flow FiO2 Mean Ox Delivery Rate 04/30 0919 97.4 82 106/72 04/30 0919 97.4 82 106/72 04/30 0826 91 Room Air 04/30 0800 91 Nasal 2.0L Cannula 04/30 0635 97.4 82 20 106/72 92 Room Air 04/30 0000 Nasal 2.0L Cannula 04/29 2302 98.7 90 20 120/80 95 04/29 2145 81 142/74 04/29 2145 81 142/74 04/29 1835 97 Nasal 2.0L Cannula 04/29 1607 84 138/72 04/29 1600 97 Nasal 2.0L Cannula 04/29 1422 98.2 94 18 138/62 97 Room Air Intake & Output 04/30 1600 04/30 0800 04/30 0000 Intake Total 300 400 Output Total Balance 300 400 Intake, Oral 300 400 Number 1 Bowel Movements Physical Exam Other Physical Findings: She appears comfortable in no acute distress Lungs are clear Heart irregular rhythm with no murmur Extremities no cyanosis, clubbing or edema Results Last 24 Hours of Lab Results: Laboratory Tests 04/30 631 Chemistry Sodium (137 - 145 mmol/L) 139 Potassium (3.5 - 5.1 mmol/L) 3.5 Chloride (98 - 107 mmol/L) 100 Carbon Dioxide (22 - 30 mmol/L) 31 H Anion Gap (5 - 16) 9 BUN (7 - 17 mg/dL) 31 H Creatinine (0.5 - 1.0 mg/dL) 0.7 Estimated GFR (>60 ml/min) > 60 BUN/Creatinine Ratio (7 - 25 %) 44.3 H Hematology CBC w Diff NO MAN DIFF REQ WBC (4.8 - 10.8 /CUMM) 8.8 RBC (4.20 - 5.40 /CUMM) 3.27 L Hgb (12.0 - 16.0 G/DL) 9.7 L Hct (37 - 47 %) 29.1 L MCV (81.0 - 99.0 FL) 89.2 MCH (27.0 - 31.0 PG) 29.6 MCHC (33.0 - 37.0 G/DL) 33.2 RDW (11.5 - 14.5 %) 14.9 H Plt Count (130 - 400 /CUMM) 436 H MPV (7.4 - 10.4 FL) 8.1 Gran % (42.2 - 75.2 %) 70.8 Lymphocytes % (20.5 - 51.1 %) 21.8 Monocytes % (1.7 - 9.3 %) 4.8 Eosinophils % (0 - 5 %) 2.2 Basophils % (0.0 - 2.0 %) 0.4 Absolute Granulocytes (1.4 - 6.5 /CUMM) 6.3 Absolute Lymphocytes (1.2 - 3.4 /CUMM) 1.9 Absolute Monocytes (0.10 - 0.60 /CUMM) 0.4 Absolute Eosinophils (0.0 - 0.7 /CUMM) 0.2 Absolute Basophils (0.0 - 0.2 /CUMM) 0 Last 24 Hours of Twan Results: Urine Legionella antigen April 27 negative Urine culture April 26 negative Blood cultures 2 April 26 negative Recent Imaging Studies: Chest x-ray April 30 reveals improved aeration of the right lung with residual streaky/linear opacities in both lungs Assessment/Plan Impression: Stable with temperatures and white blood cell count remaining normal now Day 4 of Tamiflu for Influenza, with her respiratory status stable and with her chest x-ray improved. Suggestion: 1. Continue Tamiflu
[2017-04-30 14:17] VITALS: BP 130/70
--- NOTE | 2017-04-30 16:55 | Cons- Ear,Nose&Throat ---
General Information and HPI Consulting Request Date of Consult: 04/30/17 Requested By: Iona Miller MD Reason for Consult: EPISTAXIS Source of Information: patient Exam Limitations: no limitations History of Present Illness: Patient was notice bleeding from the left side of her nose this am. form the left side. She has been bleding intermintly in the past few hours,She is on blood thinner fro her cardiac problem. Allergies/Medications Allergies: Coded Allergies: amlodipine (Severe, C/P 05/27/16) codeine (Severe, C/P 05/27/16) morphine (Severe, C/P 05/27/16) omeprazole (Severe, C/P 05/27/16) Home Med List: Apixaban (Eliquis) 5 MG TABLET 5 MG PO BID afib . Atorvastatin Calcium 10 MG TABLET 1 TAB PO DAILY CHOLESTEROL (Reported) Budesonide/Formoterol Fumarate (Symbicort 160-4.5 Mcg Inhaler) 160 MCG-4.5 MCG/ ACTUATION HFA.AER.AD 2 PUF INH BID copd Cholecalciferol (Vitamin D3) (Vitamin D) 2,000 UNIT CAPSULE 1 CAP PO DAILY SUPPLEMENT (Reported) Diclofenac Sodium (Voltaren) 1 % GEL..GRAM. 1 GM TOP 4 TIMES/DAY Shoulder pain apply to affected area(s) Diltiazem HCl (Cardizem) 60 MG TABLET 60 MG PO TID A. fib Furosemide 20 MG TABLET 60 MG PO DAILY DIURETIC Levothyroxine Sodium (Synthroid) 88 MCG TABLET 1 TAB PO DAILY THYROID PROBLEMS Lorazepam (Ativan) 0.5 MG TABLET 1 TAB PO Q6-8H PRN ANXIETY (Reported) Losartan Potassium (Cozaar) 25 MG TABLET 1 TAB PO DAILY blood pressure control Metformin HCl 500 MG TABLET 1 TAB PO DAILY DM (Reported) Metoprolol Tartrate 25 MG TABLET 1 TAB PO BID HEART HEALTH Prednisone 10 MG TABLET 4 TAB PO DAILY COPD .4 tab x1 day,then 3 tab daily x 2 days then 2 tab a day for 2 days then 1 tab for 2 days then stop Past History Medical History Blood Transfusion Hx: Yes Neurological: paraplegia status post spine fx/fall intention tremor EENT: epistaxis Cardiovascular: AFIB (PAF), CAD (s/p stent to RCA vs PTCA), CHF, hypertension, hyperlipidemia, myocardial infarction Respiratory: COPD, interstitial lung disease, LUNG CA RUL LOBECTOMY O2 DEPENDENT 2-3L Gastrointestinal: lactose intolerance, [id number], SIGMOID COLECTOMY 02/13 colonoscopy fair prep - tics but no polyps 02/13- egd gastritis DIVERTICULOSIS COLI Hepatic: NONE Renal: urinary incontinence Musculoskeletal: chronic back pain (post fall), degen joint disease, BROKEN BACK 15 YEARS AGO UNABLE TO BEAR WEIGHT Psychiatric: anxiety Endocrine: diabetes, hypothyroidism Blood Disorders: NONE (chronic), anemia Cancer(s): lung cancer (s/p RUL lobectomy SC Ca), AdenoCa in situ- sigmoid resection 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 , Age 70. FHx: stomach cancer FATHER ("some type of Ca"- not colon Ca). , Age 63. FH: cancer BROTHER FH: prostate cancer Psychosocial History Where Do You Live? Home Who Do You Live With? child, SHE LIVES WITH HER DAUGHTER Services at Home: Nursing, Oxygen Primary Language: Japanese Smoking Status: Former Smoker ETOH Use: denies use Illicit Drug Use: denies illicit drug use Living Will? yes Power of Assistant Auditor/HCP? yes Name of POA/HCP: Pt's sonConstantino Functional Ability ADLs Needs Assist: dressing, eating, toileting, bathing. Ambulation: non-ambulatory (W/C) IADLs Needs Assist: shopping, housework, finances, food prep, telephone, transportation, medication admin. Employment History Retired? yes Review of Systems Review of Systems: doen Exam & Diagnostic Data Vital Signs and I&O Vital Signs Date Time Temp Pulse Resp B/P B/P Pulse O2 O2 Flow FiO2 Mean Ox Delivery Rate 04/30 1417 97.7 99 20 130/70 90 Room Air 04/30 0919 97.4 82 106/72 04/30 0919 97.4 82 106/72 04/30 0826 91 Room Air 04/30 0800 91 Nasal 2.0L Cannula 04/30 0635 97.4 82 20 106/72 92 Room Air 04/30 0000 Nasal 2.0L Cannula 04/29 2302 98.7 90 20 120/80 95 04/29 2145 81 142/74 04/29 2145 81 142/74 04/29 1835 97 Nasal 2.0L Cannula Intake & Output 04/30 0804/30 0000 04/29 1600 04/29 0804/29 0000 Intake Total 720 300 400 360 240 460 Output Total Balance 720 300 400 360 240 460 Intake, Oral 720 300 400 360 240 460 Number 1 2 Bowel Movements Ears are clear, awake alert, Old blood clot in left nasal cavity aspirated, bleeding form the left anterior superior area of the left nasal cavity. Merocel with Bactroban ointment was inserted. right side clear , Oropharynx neg fro any bleeding, NEck is neg Assessment/Plan Assessment/Plan left epistaxis, packing inserted, Humidifier and Afrin as needed into the packing if bleed,Keep the packing in for one week.Expect some bloody discharge for the next few days since patient is on Eliquis Consult Acknowledgment - Thank you for your consult request.
--- NOTE | 2017-04-30 18:24 | Discharge Summary ---
Visit Information Visit Dates Admission Date: 04/26/17 Hospital Course Course Attending Physician: Angela VENCES,Iona Primary Care Physician: Alexandria VENCES,Westley Cazares Hospital Course: This is a 81-year-old lady with multiple comorbidities including CAD status post [place] stent placement,HFPrEF, paroxysmal A. fib on anticoagulation, diabetes COPD on 2 L home oxygen, ILD, lung carcinoma status post right upper lobe resection, presents with acute hypoxic hypercarbic respiratory failure in the setting of positive flu. During hospital stay we will address following problems Problem #1 acute on chronic hypoxic hypercarbic respiratory failure. * ct lasix at 40 mg od * TRC and nebulization * Supplemental oxygen to keep oxygen saturation more than 90% Problem #[address] therapeutic dose of Tamiflu which is 30 twice a day according to her creatinine clearance and age. taiflu day 4 will give last dose tomorrow Problem #3 atrial fibrillation Her heart rate being reasonably controlled on current regimen of Cardizem and metoprolol. It was discussed with Dr. Langley whether to start her back on amiodarone for better rate control which he is not convinced at the moment but we will wait for the final recommendations by cardiology. She was continued on Eliquis. Problem #4 history of Gem's thyroiditis We have decreased her dose of levothyroxine to 75 MCG from 88 MCG. Problem #5 history of diabetes We will hold her metformin and start her on insulin according to sliding scale. Problem #6 history of CAD We will continue her home dose of atorvastatin and metoprolol Problem #7 left nostril epistaxis Patient had an episode of epistaxis this morning which initially was tried to manage with gauze packing. Later ENT Dr. Rehman came in and packed her nose with Merocel packing and instruction are to remove after a week at his office. We will keep Eliquis and we will watch for any further bleeding. Allergies: Coded Allergies: amlodipine (Severe, C/P 05/27/16) codeine (Severe, C/P 05/27/16) morphine (Severe, C/P 05/27/16) omeprazole (Severe, C/P 05/27/16) Discharge Instructions Medications at Discharge Discharge Medications: Stop taking the following medications: Prednisone (Prednisone) 10 MG TABLET ORAL DAILY Qty = 16 Continue taking these medications: Metformin HCl (Metformin HCl) 500 MG TABLET 1 Tablet ORAL DAILY Comments: Last Taken: NOT GIVEN IN HOSPITAL Time: Lorazepam (Ativan) 0.5 MG TABLET 1 Tablet ORAL Q6-8H as needed for ANXIETY Comments: Last Taken: 05/01/17 Time: 4:00 AM Cholecalciferol (Vitamin D3) (Vitamin D) 2,000 UNIT CAPSULE 1 Capsule ORAL DAILY Comments: Last Taken: 05/01/17 Time: 9:15 AM Apixaban (Eliquis) 5 MG TABLET 5 Milligram ORAL TWICE DAILY Qty = 60 Instructions: . Comments: Last Taken: 05/01/17 Time: 9:15 AM Atorvastatin Calcium (Atorvastatin Calcium) 10 MG TABLET 1 Tablet ORAL DAILY Comments: Last Taken: 04/30/17 Time: 5:00 PM Diltiazem HCl (Cardizem) 60 MG TABLET 60 Milligram ORAL THREE TIMES DAILY Qty = 120 Comments: Last Taken: 05/01/17 Time: 9:15 AM Budesonide/Formoterol Fumarate (Symbicort 160-4.5 Mcg Inhaler) 160 MCG-4.5 MCG/ ACTUATION HFA.AER.AD 2 Puff Inhale through mouth TWICE DAILY Qty = 1 Comments: Last Taken: NOT GIVEN IN HOSPITAL Time: Diclofenac Sodium (Voltaren) 1 % GEL..GRAM. 1 Gram On the skin 4 TIMES A DAY Qty = 1 Instructions: apply to affected area(s) Comments: Last Taken: 04/28/17 Time: 9:35 AM Levothyroxine Sodium (Synthroid) 88 MCG TABLET 1 Tablet ORAL DAILY Qty = 30 Comments: Last Taken: 05/01/17 Time: 5:40 AM Losartan Potassium (Cozaar) 25 MG TABLET 1 Tablet ORAL DAILY Qty = 30 Comments: Last Taken: NOT GIVEN IN HOSPITAL Time: Metoprolol Tartrate (Metoprolol Tartrate) 25 MG TABLET 1 Tablet ORAL TWICE DAILY Qty = 60 Comments: Last Taken: 05/01/17 Time: 9:15 AM Furosemide (Furosemide) 20 MG TABLET 60 Milligram ORAL DAILY Qty = 30 Comments: Last Taken: 05/01/17 Time: 9:15 AM Start taking the following new medications: Oseltamivir Phosphate (Tamiflu) 30 MG CAPSULE 30 Milligram ORAL TWICE DAILY Qty = 2 No Refills Comments: Last Taken: 05/01/17 Time: 9:15 AM Guaifenesin (Guaifenesin ER) 600 MG TAB.ER.12H 600 Milligram ORAL EVERY 12 HOURS as needed for COUGH Qty = 14 No Refills Comments: Last Taken: 05/01/17 Time: 9:15 AM Amoxicillin (Amoxicillin) 500 MG TABLET 1 Tablet ORAL THREE TIMES DAILY Qty = 30 No Refills Comments: Last Taken: NOT GIVEN IN HOSPITAL Time: Attending MD Review Statement Documenting Attending: Iona Miller MD Other Findings: Medically stable to be discharged home. We recommended follow-up in the CHF clinic however patient declined repeatedly to follow-up there. She will be following up with a aviation boatswain's mate and cardiology service.
--- NOTE | 2017-04-30 18:53 | PN- Cardiology ---
Subjective Subjective: * Patient continues to have shortness of breath and a cough. * atrial fibrillation with controlled heart rate Objective Vital Signs and I&Os Vital Signs Date Time Temp Pulse Resp B/P B/P Pulse O2 O2 Flow FiO2 Mean Ox Delivery Rate 04/30 1700 99 130/70 04/30 1417 97.7 99 20 130/70 90 Room Air 04/30 0919 97.4 82 106/72 04/30 0919 97.4 82 106/72 04/30 0826 91 Room Air 04/30 0800 91 Nasal 2.0L Cannula 04/30 0635 97.4 82 20 106/72 92 Room Air 04/30 0000 Nasal 2.0L Cannula 04/29 2302 98.7 90 20 120/80 95 04/29 2145 81 142/74 04/29 2145 81 142/74 Intake & Output 04/30 1600 04/30 0800 04/30 0000 04/29 1600 04/29 0800 04/29 0000 Intake Total 720 300 400 360 240 460 Output Total Balance 720 300 400 360 240 460 Intake, Oral 720 300 400 360 240 460 Number 1 2 Bowel Movements Physical Exam: General: WD/overweight female in mild distress; alert and oriented x 3 HEETN: NC/AT, PERRL, EOMI Neck: no JVD, no carotid bruit Heart: irregularly irregular Lungs: no crackles Abdomen: soft, obese, NT, +ve bowel sounds Extremities: no edema Neuro: bilateral lower extremity paralysis Assessment/Plan Assessment/Plan * This patient has chronic atrial fibrillation with a controlled heart rate on her current drug regimen. I suspect that she will do even better when her issues with hyperthyroidism improve. Ms. Boston should continue on chronic anticoagulation with Eliquis for stroke prophylaxis. Cotninue her current dose of calcium channel block and a small dose of beta juaquin for rate control. * This patient had mild superimposed CHF in the setting of hypoxia. Continue Lasix at 60mg PO daily. She has evidence of emphysematous COPD and interstitial lung disease superimposed on decreased lung capacity from a lobectomy. Continue to treat with Tamiflu. Continue telemetry? Yes
[2017-04-30 22:19] VITALS: BP 100/68
[2017-05-01 05:40] VITALS: BP 122/60
--- NOTE | 2017-05-01 08:01 | PN- Housestaff ---
Katina Gerardo 05/01/17 0801: Subjective Follow-up For: Flu Acute on chronic respiratory failure A. fib CHF exacerbation epistaxis Subjective: Patient was seen and examined this morning. She had intact left nostril Murocel packing done by Dr. Rehman yesterday. No overnight bleeding events. She still have mild dry cough and feels tired. She was counseled that her tiredness may persist for 2 weeks. She remained afebrile and hemodynamically stable. She is stable to go home today. Review of Systems Constitutional: Reports: weakness. Denies: chills, fever. Cardiovascular: Denies: chest pain, edema. Respiratory: Reports: cough, short of breath. Denies: hemoptysis, orthopnea. Gastrointestinal: Denies: bloating, diarrhea. Genitourinary: Denies: dysuria, hesitation. Objective Last 24 Hrs of Vital Signs/I&O Vital Signs Date Time Temp Pulse Resp B/P B/P Pulse O2 O2 Flow FiO2 Mean Ox Delivery Rate 05/01 1402 98.1 59 20 130/68 97 Nasal Cannula 05/01 0958 96 Nasal 2.0L Cannula 05/01 0915 88 122/60 05/01 0915 88 122/60 05/01 0800 96 Nasal 2.0L Cannula 05/01 0540 97.6 88 20 122/60 96 05/01 0000 Nasal 2.0L Cannula 04/30 2219 97.8 88 20 100/68 93 Nasal 2.0L Cannula 04/30 2150 99 130/70 04/30 2150 99 130/70 04/30 1700 99 130/70 Intake & Output 05/01 1600 05/01 0800 05/01 0000 Intake Total 50 200 Output Total Balance 50 200 Intake, IV 0 Intake, Oral 50 200 Number 1 0 Bowel Movements Physical Exam General Appearance: Alert, Oriented X3, Cooperative, No Acute Distress Cardiovascular: Normal S1, Normal S2, irregularly irregular Lungs: Normal Air Movement Abdomen: Soft, No Tenderness Current Medications: Current Medications Sig/Jonel Start time Last Medication Dose Route Stop Time Status Admin Albuterol Sulfate 3 ML BID 04/27 1002 AC 05/01 INH 0824 Apixaban 5 MG BID 04/26 2200 AC 05/01 PO 0915 Atorvastatin Calcium 10 MG 1700 04/27 1700 AC 04/30 PO 1700 Cholecalciferol 2,000 IU DAILY 04/27 1000 AC 05/01 PO 0915 Diclofenac Sodium 1 JC 4 TIMES/DAY PRN 04/26 1830 AC 04/28 TOP 0935 Diltiazem HCl 60 MG TID 04/26 2200 AC 05/01 PO 0915 Furosemide 60 MG DAILY 05/01 1000 AC 05/01 PO 0915 Furosemide 40 MG DAILY 04/30 1000 DC 04/30 PO 0919 Guaifenesin 600 MG Q12 04/26 2200 AC 05/01 PO 0915 Insulin Aspart 0 TIDAC 04/27 0800 AC 04/29 SC 1235 Levothyroxine Sodium 0.075 MG DAILY AC 04/27 0500 AC 05/01 PO 0542 Lorazepam 0.5 MG Q6P PRN 04/27 1645 AC 05/01 PO 05/04 1644 0358 Metoprolol Tartrate 25 MG BID 04/26 2200 AC 05/01 PO 0915 Oseltamivir Phosphate 30 MG BID 04/27 2200 AC 05/01 PO 05/01 2201 0916 Oxymetazoline HCl 2 SPRAY ONCE ONE 04/30 1445 DC 04/30 CHASE 04/30 1446 1700 Last 24 Hrs of Lab/Twan Results Last 24 Hrs of Labs/Mics: Laboratory Tests 05/01/17 0645: Anion Gap 10, Estimated GFR > 60, BUN/Creatinine Ratio 44.3 H, CBC w Diff NO MAN DIFF REQ, RBC 3.61 L, MCV 89.8, MCH 29.4, MCHC 32.7 L, RDW 14.7 H, MPV 8.3, Gran % 69.7, Lymphocytes % 22.5, Monocytes % 3.8, Eosinophils % 3.8, Basophils % 0.2, Absolute Granulocytes 6.6 H, Absolute Lymphocytes 2.1, Absolute Monocytes 0.4, Absolute Eosinophils 0.4, Absolute Basophils 0 Assessment/Plan Assessment: This is a 81-year-old lady with multiple comorbidities including CAD status post [place] stent placement,HFPrEF, paroxysmal A. fib on anticoagulation, diabetes COPD on 2 L home oxygen, ILD, lung carcinoma status post right upper lobe resection, presents with acute hypoxic hypercarbic respiratory failure in the setting of positive flu. During hospital stay we will address following problems Problem #1 acute on chronic hypoxic hypercarbic respiratory failure. * ct lasix at 60 mg daily * TRC and nebulization * Supplemental oxygen to keep oxygen saturation more than 90% Problem #[address] therapeutic dose of Tamiflu which is 30 twice a day according to her creatinine clearance and age. Currently she is on Tamiflu and we will send her home on 2 more doses tonight and tomorrow morning. Problem #3 atrial fibrillation Her heart rate being reasonably controlled on current regimen of Cardizem and metoprolol. It was discussed with Dr. Langley whether to start her back on amiodarone for better rate control which he is not convinced at the moment but we will wait for the final recommendations by cardiology. She was continued on Eliquis. Problem #4 history of Gem's thyroiditis We have decreased her dose of levothyroxine to 75 MCG from 88 MCG. Problem #5 history of diabetes We will hold her metformin and start her on insulin according to sliding scale. Problem #6 history of CAD We will continue her home dose of atorvastatin and metoprolol Problem #7 left nostril epistaxis she has nasal packing with Merocel packing yesterday by ENT Dr. Souza. He was contacted today for prophylaxis antibiotic recommendations and he agreed upon to send her home on amoxicillin. We will send her home on 500 mg amoxicillin 3 times a day still she will see Dr. Villegas. I called ENT office and schedule appointment for May 07 at 2 PM with them. Problem List: 1. Atrial fibrillation 2. Influenza B Pain Ratin Pain Location: Not applicable Pain Goal: Remain pain free Pain Plan: Tylenol Tomorrow's Labs & Rationales: None Hill Jeff MD 05/01/17 2012: Attending MD Review Statement Attending Statement Attending MD Statement: examined this patient, discuss w/resident/PA/BUFFING WHEEL [employer]AKER, agreed w/resident/PA/[employer]ING WHE[employer]AKER, reviewed EMR data (avail), discussed with nursing, discussed with case mgmt, amended to note Attending Assessment/Plan: The patient was seen and discussed with house staff and Pulmonary (Dr. Pleitez). OK to discharge today (no steroids as is not wheezing). Patient will have home services as planned. Close OP follow-up.
[2017-05-01 08:08] LABS: ABSOLUTE BASOPHIL COUNT 0 /CUMM (0.0-0.2); ABSOLUTE EOSINOPHIL COUNT 0.4 /CUMM (0.0-0.7); ABSOLUTE GRANULOCYTE CT 6.6 /CUMM (1.4-6.5); ABSOLUTE LYMPH COUNT 2.1 /CUMM (1.2-3.4); ABSOLUTE MONOCYTE COUNT 0.4 /CUMM (0.10-0.60); BASOPHIL % 0.2 % (0.0-2.0); EOSINOPHIL % 3.8 % (0-5); GRANULOCYTE % 69.7 % (42.2-75.2); HEMATOCRIT 32.5 % (37-47); MEAN CORPUSCULAR HGB 29.4 PG (27.0-31.0); MEAN CORPUSCULAR HGB CONC 32.7 G/DL (33.0-37.0); MEAN CORPUSCULAR VOLUME 89.8 FL (81.0-99.0); MEAN PLATELET VOLUME 8.3 FL (7.4-10.4); PLATELET COUNT 515 /CUMM (130-400); RBC DISTRIBUTION WIDTH 14.7 % (11.5-14.5); RED BLOOD CELL CT 3.61 /CUMM (4.20-5.40); WHITE BLOOD CELL COUNT 9.4 /CUMM (4.8-10.8)
[2017-05-01] MEDS ORDERED: TAMIFLU30 M1 PO (08:08)
[2017-05-01] MEDS ORDERED: GUAIFENESIN ER600 MG PO (08:08)
--- NOTE | 2017-05-01 08:12 | Patient Discharge Instructions ---
Discharge Instructions General Discharge Information You were seen/treated for: Flu A.Fib epistaxis Special Instructions: Please follow-up with your primary care physician in one week of discharge Please follow-up with Dr. Rehman ENT on 05/07/2017 at 2 PM and please call their office to confirm this appointment and their number is [phone] nasal packing removal . In case of any further bleeding please come to ER or see Dr. Rehman. Please take medications as prescribed Diet Recommended Diet: Heart Healthy Activity Additional ACTIVITY Info: As tolerated Acute Coronary Syndrome Inclusion Criteria At DC or during hospital stay patient has or had the following: ACS DIAGNOSIS No Discharge Core Measures Meds if any: Prescribed or Continued at Discharge Meds if any: NOT Prescribed or Continued at Discharge Congestive Heart Failure Inclusion Criteria At DC or during hospital stay patient has or had the following: CHF DIAGNOSIS Yes Discharge Core Measures Meds if any: Prescribed or Continued at Discharge Meds if any: NOT Prescribed or Continued at Discharge Cerebrovascular accident Inclusion Criteria At DC or during hospital stay patient has or had the following: CVA/TIA Diagnosis No Discharge Core Measures Meds if any: Prescribed or Continued at Discharge Meds if any: NOT Prescribed or Continued at Discharge Venous thromboembolism Inclusion Criteria VTE Diagnosis No VTE Type NONE VTE Confirmed by (Test) NONE Discharge Core Measures - Per Current guidelines, there needs to be overlap - treatment for the first 5 days of Warfarin therapy. - If discharged on Warfarin prior to 5 days of - overlap therapy, the patient will need to be - assessed for post discharge needs including - *Post discharge parental anticoagulation - *Warfarin and/or parental anticoagulation education - *Follow up date to check INR post discharge At least 5 days overlap therapy as Inpatient No Meds if any: Prescribed or Continued at Discharge Note: Overlap Therapy is Warfarin and Anticoagulant Meds if any: NOT Prescribed or Continued at Discharge
[2017-05-01] MEDS ORDERED: AMOXICILLIN500 M3 PO (13:32)
[2017-05-01 14:02] VITALS: BP 130/68
--- NOTE | 2017-05-01 18:09 | PN- Pulmonary ---
Subjective HPI/Critical Care Issues: Doing well wishes to go home Objective Current Medications: Current Medications Sig/Jonel Start time Last Medication Dose Route Stop Time Status Admin Albuterol Sulfate 3 ML BID 04/27 1002 DCD 05/01 INH 0824 Apixaban 5 MG BID 04/26 2200 DCD 05/01 PO 0915 Atorvastatin Calcium 10 MG 1700 04/27 1700 DCD 04/30 PO 1700 Cholecalciferol 2,000 IU DAILY 04/27 1000 DCD 05/01 PO 0915 Diclofenac Sodium 1 JC 4 TIMES/DAY PRN 04/26 1830 DCD 04/28 TOP 0935 Diltiazem HCl 60 MG TID 04/26 2200 DCD 05/01 PO 0915 Furosemide 60 MG DAILY 05/01 1000 DCD 05/01 PO 0915 Furosemide 40 MG DAILY 04/30 1000 DC 04/30 PO 0919 Guaifenesin 600 MG Q12 04/26 2200 DCD 05/01 PO 0915 Insulin Aspart 0 TIDAC 04/27 0800 DCD 04/29 SC 1235 Levothyroxine Sodium 0.075 MG DAILY AC 04/27 0500 DCD 05/01 PO 0542 Lorazepam 0.5 MG Q6P PRN 04/27 1645 DCD 05/01 PO 05/04 1644 0358 Metoprolol Tartrate 25 MG BID 04/26 2199 DCD 05/01 PO 0915 Oseltamivir Phosphate 30 MG BID 04/27 2200 DCD 05/01 PO 05/01 2201 0916 Vital Signs & I&O Last 24 Hrs of Vitals and I&O: Vital Signs Date Time Temp Pulse Resp B/P B/P Pulse O2 O2 Flow FiO2 Mean Ox Delivery Rate 05/01 1402 98.1 59 20 130/68 97 Nasal Cannula 05/01 0958 96 Nasal 2.0L Cannula 05/01 0915 88 122/60 05/01 0915 88 122/60 05/01 0800 96 Nasal 2.0L Cannula 05/01 0540 97.6 88 20 122/60 96 05/01 0000 Nasal 2.0L Cannula 04/30 2219 97.8 88 20 100/68 93 Nasal 2.0L Cannula 04/30 2150 99 130/70 04/300 99 130/70 Intake & Output 05/01 1600 05/01 0800 01/30 0000 Intake Total 620 50 200 Output Total Balance 620 50 200 Intake, IV 0 Intake, Oral 620 50 200 Number 1 0 Bowel Movements Impression/Plan Impression/Plan Impression/Plan: General Appearance Alert, Oriented X3, Cooperative, Moderate Distress Skin No Rashes Skin Temp/Moisture Exam: Warm/Dry HEENT PERRLA, EOMI, Mucous Membr. moist/pink Cardiovascular Normal S1, Normal S2, No Murmurs Lungs b/l expiratory wheeze,basal crackles Abdomen Normal Bowel Sounds, Soft, No Tenderness Neurological Strength at 5/[address] CHEST IMPRESSION: 1. No pulmonary embolism. 2. Atherosclerotic disease of coronary arteries, cardiomegaly, persistent interstitial edema and small pleural effusions. The pleural effusions have decreased in size compared to 04/19/2017. 3. Interval worsening of patchy opacity in the left upper lobe and lower lobes, suspicious for pneumonia. 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 now presumed cured, hypertension, paroxysmal atrial fibrillation was on amiodarone (which has been stopped due to presumed toxicity before, however pt was not converted to sinus rhythm with this )and anticoagulation, previous tachycardia-induced acute pulmonary edema, drug-eluting stent to the RCA in May 2014, paraplegia, nosebleeds, chronic anemia with previous negative GI workup, recurrent bronchitis with mild interstitial lung disease, moderate obstructive pulmonary disease as well now comes in with * Resolved Acute hypoxic and hypercarbic resp failure due to acute pulm edema due to afib with rvr with flash pulm edema, compounded by influenza b pna * Rapid afib with shortness of breath with tachy cardia induced pulm edema, ct sugg of that * Mild effusion due to chf * Recent UTI * Epistaxis s/p packing * Chronic anemia * Sig COPD and ILD with wheezing due to pulm edema * Paroxysmal atrial fibrillation, needs rate control med * Previous PCI with stent, * 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 * Pulmonary hypertension multifactorial * Chronic small airway disease, mild ILD on top of her mod COPD * Chronic paraplegia * Platypnea with no evidence of any shunt with previous work up for ASD or any shunt physiology neg, and no evidence of decompensated liver disease (is not short of breath while she sits in her wheel chair but cannot sit up in bed) * Chronic stable ischemic heart disease with stent as noted * Previous lung ca with no sig recurrence REC Cont current meds tamiflu dose completed Ipratropium nebs atc q6 prn Hold systemic steroids unless she is wheezing Reduce levoxyl now to 75 from 88 which could also precipitate tachy Will follow Ok to dc
== END 2017-05-01 13:25 | DRG 177 ==
LOC: ERH 11:27 → 1NO 14:55 → ERHI 14:55 → ENRESERV 16:55 → ENTRNSPT 19:12 → EDTRNSPTSTS 19:17 → 1NO 19:30 → CMPTRNSPT 19:35 → 1NO 04-27 08:14 → ENPENDDIS 05-01 13:36 → ENTRNSPT 05-01 15:14 → EDTRNSPTSTS 05-01 15:15 → CMPTRNSPT 05-01 16:40
PROVIDERS: Internal Medicine; Physician Assistant; Radiology Vascular & Interventional Radiology; Student in an Organized Health Care Education/Training Program
DX: J10.08 Influenza due to other identified influenza virus with other specified pneumonia (principal); J96.21 Acute and chronic respiratory failure with hypoxia; J15.6 Pneumonia due to other Gram-negative bacteria; E87.2 Acidosis; J84.9 Interstitial pulmonary disease, unspecified; J96.22 Acute and chronic respiratory failure with hypercapnia; G82.20 Paraplegia, unspecified; I50.32 Chronic diastolic (congestive) heart failure; N39.0 Urinary tract infection, site not specified; I11.0 Hypertensive heart disease with heart failure; Z99.81 Dependence on supplemental oxygen; E11.9 Type 2 diabetes mellitus without complications; Z79.84 Long term (current) use of oral hypoglycemic drugs; I25.10 Atherosclerotic heart disease of native coronary artery without angina pectoris; I25.2 Old myocardial infarction; Z95.1 Presence of aortocoronary bypass graft; I48.0 Paroxysmal atrial fibrillation; Z79.01 Long term (current) use of anticoagulants; E05.90 Thyrotoxicosis, unspecified without thyrotoxic crisis or storm; E06.3 Autoimmune thyroiditis; I27.29 Other secondary pulmonary hypertension; I34.0 Nonrheumatic mitral (valve) insufficiency; G89.29 Other chronic pain; M54.9 Dorsalgia, unspecified; M19.90 Unspecified osteoarthritis, unspecified site; Z85.118 Personal history of other malignant neoplasm of bronchus and lung; Z90.2 Acquired absence of lung [part of]
CPT/HCPCS: 1NP; 36415; 71045; 81001; 82436; 87040; 87070; 87086; 87449; 87450; 87804; 87804-59; 93005; 93010; 96374; 96375; 99291; J0713; J1940; J2930; J3370; J7060

== ENCOUNTER 2017-07-07 12:44 | Inpatient (IN) | payer OTHER, MEDICARE ==
[~2017-07-07] VITALS: Ht 157.5 cm; Wt 64.6 kg
[~2017-07-07 12:44] MED LIST changes: +AMOXICILLIN500 M3 PO; +GUAIFENESIN ER600 MG PO
--- NOTE | 2017-07-07 12:51 | ED DYSPNEA/ASTHMA COMPLAINT ---
History of Present Illness General Chief Complaint: Dyspnea (COPD, CHF, Other) Stated Complaint: BIBA WITH PROBLEM BREATHING Source: patient, family, old records Exam Limitations: dementia Vital Signs & Intake/Output Vital Signs & Intake/Output Vital Signs Date Time Temp Pulse Resp B/P B/P Pulse O2 O2 Flow FiO2 Mean Ox Delivery Rate 07/10 1044 72 164/72 07/10 1044 72 164/72 07/10 1043 72 164/72 07/10 0825 93 Room Air 07/10 0711 97.6 84 20 126/68 92 07/09 2238 88 124/66 07/09 2238 88 124/66 07/09 2207 97.6 88 20 124/66 88 Room Air 07/09 1930 96 Room Air 07/09 1640 86 132/80 07/09 1336 97.6 86 20 132/80 92 Room Air ED Intake and Output 07/10 0000 07/09 1200 Intake Total 1680 240 Output Total 250 Balance 1430 240 Intake, Oral 1680 240 Number 0 Bowel Movements Output, Urine 250 Patient 72.745 kg Weight Weight Bed scale Measurement Method Allergies Coded Allergies: amlodipine (Severe, C/P 05/27/16) codeine (Severe, C/P 05/27/16) morphine (Severe, C/P 05/27/16) omeprazole (Severe, C/P 05/27/16) Reconcile Medications Amoxicillin 500 MG TABLET 1 TAB PO TID SINUSITIS Apixaban (Eliquis) 5 MG TABLET 5 MG PO BID afib . Atorvastatin Calcium 10 MG TABLET 1 TAB PO DAILY CHOLESTEROL (Reported) Budesonide/Formoterol Fumarate (Symbicort 160-4.5 Mcg Inhaler) 160 MCG-4.5 MCG/ ACTUATION HFA.AER.AD 2 PUF INH BID copd Cholecalciferol (Vitamin D3) (Vitamin D) 2,000 UNIT CAPSULE 1 CAP PO DAILY SUPPLEMENT (Reported) Diclofenac Sodium (Voltaren) 1 % GEL..GRAM. 1 GM TOP 4 TIMES/DAY Shoulder pain apply to affected area(s) Diltiazem HCl (Cardizem) 60 MG TABLET 60 MG PO TID A. fib Furosemide 20 MG TABLET 60 MG PO DAILY DIURETIC Guaifenesin (Guaifenesin ER) 600 MG TAB.ER.12H 600 MG PO Q12 PRN COUGH Levothyroxine Sodium (Synthroid) 88 MCG TABLET 1 TAB PO DAILY THYROID PROBLEMS Lorazepam (Ativan) 0.5 MG TABLET 1 TAB PO Q6-8H PRN ANXIETY (Reported) Losartan Potassium (Cozaar) 25 MG TABLET 1 TAB PO DAILY blood pressure control Metformin HCl 500 MG TABLET 1 TAB PO DAILY DM (Reported) Metoprolol Tartrate 25 MG TABLET 1 TAB PO BID HEART HEALTH Oseltamivir Phosphate (Tamiflu) 30 MG CAPSULE 30 MG PO BID FLU Triage Nurses Notes Reviewed? yes HPI: 81F PMH CAD s/p SD and stent, HFPrEF, paroxysmal A. fib on anticoagulation, T2DM , COPD on 2 L home oxygen, ILD, lung carcinoma status post right upper lobe resection presenting with several days of progressive shortness of breath, hypoxic in ambulance to 88% on 2L, improved to 100% with nebulizer on 5L. Reports cough and weakness for several days, diagnosed with pneumonia one month ago per patient, admitted here back in April with influenza. She denies chest pain, palpitations, lightheadedness, sore throat, fever, chills, n/v/d, dysuria. She is visibly dyspneic without accessory muscle use. Almost able to speak in full sentences before taking a breath. Past History Travel History Traveled to [place] past 21 day No Medical History Any Pertinent Medical History? see below for history Neurological: paraplegia status post spine fx/fall intention tremor EENT: epistaxis Cardiovascular: AFIB (PAF), CAD (s/p stent to RCA vs PTCA), CHF, hypertension, hyperlipidemia, myocardial infarction Respiratory: COPD, interstitial lung disease, LUNG CA RUL LOBECTOMY O2 DEPENDENT 2-3L Gastrointestinal: lactose intolerance, [id number], SIGMOID COLECTOMY 02/13 colonoscopy fair prep - tics but no polyps 02/13- egd gastritis DIVERTICULOSIS COLI Hepatic: NONE Renal: urinary incontinence Musculoskeletal: chronic back pain (post fall), degen joint disease, BROKEN BACK 15 YEARS AGO UNABLE TO BEAR WEIGHT Psychiatric: anxiety Endocrine: diabetes, hypothyroidism Blood Disorders: NONE (chronic), anemia Cancer(s): lung cancer (s/p RUL lobectomy SC Ca), AdenoCa in situ- sigmoid resection 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 , Age 70. FHx: stomach cancer FATHER ("some type of Ca"- not colon Ca). , Age 63. FH: cancer BROTHER FH: prostate cancer Hx Contributory? No Review of Systems Review of Systems Constitutional: Reports: no symptoms. EENTM: Reports: no symptoms. Respiratory: Reports: see HPI. Cardiovascular: Reports: no symptoms. GI: Reports: no symptoms. Genitourinary: Reports: no symptoms. Musculoskeletal: Reports: no symptoms. Skin: Reports: no symptoms. Neurological/Psychological: Reports: no symptoms. Hematologic/Endocrine: Reports: no symptoms. Immunologic/Allergic: Reports: no symptoms. All Other Systems: Reviewed and Negative Physical Exam Physical Exam General Appearance: well developed/nourished, mild distress Head: atraumatic, normal appearance Eyes: Bilateral: normal appearance. Ears, Nose, Throat: normal pharynx, normal ENT inspection, hearing grossly normal Neck: normal inspection, supple, full range of motion Respiratory: wheezing Cardiovascular: regular rate/rhythm Gastrointestinal: soft, non-tender Extremities: normal inspection, normal capillary refill, normal range of motion Neurologic/Psych: awake, alert, oriented x 3, normal mood/affect Skin: intact, normal color, warm/dry Core Measures ACS in differential dx? No CVA/TIA Diagnosis No Sepsis Present: No Sepsis Focused Exam Completed? No Progress Differential Diagnosis: asthma, AMI, altitude sickness, bronchitis, costochondritis, CHF, COPD, musculoskeletal pain, pericarditis, pulmonary embolism, pneumonia, pneumothorax, rib fracture, unstable angina Plan of Care: Orders Procedure Date/time Status CBC WITHOUT DIFFERENTIAL 07/11 06 Active BASIC ELECTROLYTES PLUS BUN&CR 07/11 06 Active CBC WITHOUT DIFFERENTIAL 07/10 06 Complete BASIC ELECTROLYTES PLUS BUN&CR 07/10 06 Complete TYPE & SCREEN (NOT X-MATCH) 07/10 0011 Complete THERAPIST ORDERS 07/09 2100 Complete EKG 07/09 0843 Active AEROSOL CHG 07/09 UNK Complete OXYGEN 07/09 UNK Complete OXYGEN DAILY CHARGE 07/09 UNK Complete Nursing Misc 07/09 UNK Active Current Medications Sig/Jonel Start time Last Medication Dose Stop Time Status Admin Furosemide 60 MG DAILY 07/11 1000 AC (Lasix) Albuterol Sulfate 3 ML TID 07/09 2200 AC 07/10 (Proventil) 0824 Ipratropium [place] 2.5 ML Q6P PRN 07/09 1515 AC (Atrovent) Apixaban 5 MG BID 07/09 1000 AC 07/10 (Eliquis) 1044 Sodium Chloride 2 SPRAY Q4P PRN 07/08 1500 AC 07/10 (Nasal) 1042 Benzonatate 100 MG TID PRN 07/08 1111 AC 07/08 (Tessalon Capsule) 1532 Atorvastatin Calcium 10 MG DAILY 07/08 1000 AC 07/10 (Lipitor) 1044 Losartan Potassium 25 MG DAILY 07/08 1000 AC 07/10 (Cozaar) 1044 Levothyroxine Sodium 0.088 MG DAILY AC 07/08 0700 AC 07/10 (Synthroid) 0438 Lorazepam 0.5 MG Q8P PRN 07/08 0045 AC 07/09 (Ativan) 07/15 0044 1853 Budesonide/ 2 PUF BID 07/07 2200 AC 07/10 Formoterol Fumarate 1047 (Symbicort) Metoprolol Tartrate 25 MG BID 07/07 2200 AC 07/10 (Lopressor) 1044 Insulin Aspart 0 TIDAC 07/07 1700 AC 07/09 (NovoLOG) 1641 Diltiazem HCl 60 MG TID 07/07 1600 AC 07/10 (Cardizem) 1043 Guaifenesin 600 MG Q12 PRN 07/07 1530 AC (Mucinex) Acetaminophen 325 MG Q6P PRN 07/07 1515 AC (Tylenol) Laboratory Tests 07/10/17 0705: Anion Gap 12, Estimated GFR 53 L, BUN/Creatinine Ratio 36.0 H, CBC w Diff NO MAN DIFF REQ, RBC 3.41 L, MCV 87.2, MCH 29.0, MCHC 33.3, RDW 16.3 H, MPV 7.9, Gran % 79.2 H, Lymphocytes % 14.0 L, Monocytes % 6.7, Eosinophils % 0.1, Basophils % 0, Absolute Granulocytes 9.2 H, Absolute Lymphocytes 1.6, Absolute Monocytes 0.8 H, Absolute Eosinophils 0, Absolute Basophils 0 07/09/17 1250: Urine Color YEL, Urine Clarity CLDY H, Urine pH 6.0, Ur Specific [place] 1.015, Urine Protein NEG, Urine Ketones NEG, Urine Nitrite NEG, Urine Bilirubin NEG, Urine Urobilinogen 0.2, Ur Leukocyte Esterase MOD H, Ur Microscopic SEDIMENT EXAMINED, Urine RBC 1-3, Urine WBC > 75 H, Ur Epithelial Cells MOD H, Micro UA Comment [place] H, Urine Hemoglobin MOD H, Urine Glucose NEG Microbiology 07/09 1250 URINE ROUT: Urine Culture - RES Diagnostic Imaging: Viewed by Me: Radiology Read. Discussed w/RAD: Radiology Read. Radiology Impression: PATIENT: VINCENT DRUMMOND PRESENT AGE: 81 PATIENT ACCOUNT NO: [id number] : 35 LOCATION: [facility] ORDERING PHYSICIAN: Evan Bryson MD SERVICE DATE: 07/07/17-1251 EXAM TYPE : RAD - XRY-PORTABLE CHEST XRAY EXAMINATION: XR PORTABLE CHEST CLINICAL INFORMATION: Rule out pneumonia or CHF. Dyspnea with bibasilar crackles. COMPARISON: Chest radiograph 04/30/2017. TECHNIQUE: Portable frontal view of the chest was obtained. FINDINGS: There is new airspace opacity in the right mid to lower lung zone compatible with pneumonia. There are small amount of right pleural fluid. There is diffuse prominence of the background interstitium. The left lung is grossly clear. There is no pneumothorax. The heart is top normal in size. There are atheromatous calcifications of the thoracic aorta. There are surgical clips in the right upper quadrant. The stomach is mildly distended with air. There is a thoracolumbar fusion construct in place. IMPRESSION: New airspace opacity in the right mid to lower lung zones compatible with pneumonia with small amount of pleural fluid. DICTATED BY: José Klein MD DATE/TIME DICTATED:07/07/171400 INSPECTOR SHEET METAL PARTS:ADAM DATE/TIME TRANSCRIBED:1400 Initial ED EKG: NSR, no ST T wave changes, PVCs Prior EKG: unchanged Departure Departure Disposition: STILL A PATIENT Condition: Stable Clinical Impression Primary Impression: RLL pneumonia Secondary Impressions: COPD exacerbation Referrals: Alexandria VENCES,Westley Cazares (PCP/Family) Departure Forms: Customer Survey General Discharge Information Admission Note Spoke With: Scar Wahl MD Documentation of Exam: Documentation of any treatments & extenuating circumstances including Concerns Regarding Discharge (functional status, medication knowledge or non-compliance, living conditions, etc.) that warrant an admission rather than observation: new RLL pneumonia with significant dyspnea and tachypnea, wheezing, will require IV antibiotics, IV steroids, nebulizer treatments, pulmonary consult. Critical Care Note Critical Care Note Critical Care Time: 30-74 min
[2017-07-07 13:16] LABS: ABSOLUTE BASOPHIL COUNT 0.1 /CUMM (0.0-0.2); ABSOLUTE EOSINOPHIL COUNT 0.2 /CUMM (0.0-0.7); ABSOLUTE GRANULOCYTE CT 8.4 /CUMM (1.4-6.5); ABSOLUTE LYMPH COUNT 2.7 /CUMM (1.2-3.4); ABSOLUTE MONOCYTE COUNT 0.4 /CUMM (0.10-0.60); BASOPHIL % 0.6 % (0.0-2.0); EOSINOPHIL % 1.8 % (0-5); GRANULOCYTE % 71.5 % (42.2-75.2); HEMATOCRIT 34.5 % (37-47); MEAN CORPUSCULAR HGB 28.7 PG (27.0-31.0); MEAN CORPUSCULAR HGB CONC 32.3 G/DL (33.0-37.0); MEAN CORPUSCULAR VOLUME 88.9 FL (81.0-99.0); MEAN PLATELET VOLUME 7.6 FL (7.4-10.4); PLATELET COUNT 475 /CUMM (130-400); RBC DISTRIBUTION WIDTH 16.1 % (11.5-14.5); RED BLOOD CELL CT 3.89 /CUMM (4.20-5.40); WHITE BLOOD CELL COUNT 11.8 /CUMM (4.8-10.8)
--- NOTE | 2017-07-07 14:09 | RADIOLOGY REPORT ---
EXAMINATION: XR PORTABLE CHEST CLINICAL INFORMATION: Rule out pneumonia or CHF. Dyspnea with bibasilar crackles. COMPARISON: Chest radiograph 04/30/2017. TECHNIQUE: Portable frontal view of the chest was obtained. FINDINGS: There is new airspace opacity in the right mid to lower lung zone compatible with pneumonia. There are small amount of right pleural fluid. There is diffuse prominence of the background interstitium. The left lung is grossly clear. There is no pneumothorax. The heart is top normal in size. There are atheromatous calcifications of the thoracic aorta. There are surgical clips in the right upper quadrant. The stomach is mildly distended with air. There is a thoracolumbar fusion construct in place. IMPRESSION: New airspace opacity in the right mid to lower lung zones compatible with pneumonia with small amount of pleural fluid.
--- NOTE | 2017-07-07 15:43 | History & Physical ---
[facility]: General Information and HPI MD Statement: I have seen and personally examined VINCENT DRUMMOND and documented this H&P. The patient is a 81 year old F who presented with a patient stated chief complaint of [shortness of breath]. Source of Information: patient Exam Limitations: no limitations History of Present Illness: This is a 81-year-old lady with multiple comorbidities including CAD status post MN stent placement,HFPrEF, paroxysmal A. fib on anticoagulation, diabetes COPD on 2 L home oxygen, ILD, lung carcinoma status post right upper lobe resection, history of colon cancer status post sigmoid resection and Gem's thyroiditis presents to the ER with a chief complaint of worsening shortness of breath. Patient had 3 admissions in April hypoxic respiratory failure. On the last admission she was treated for influenza and UTI. Patient reports post discharge from the hospital she never came back to her baseline. She continued to have worsening shortness of breath, clear productive sputum and fatigue. She wasn't able to get up from bed to sit on her wheelchair. She denied fevers but continued to be cold and clammy. She is on 2.5 L of oxygen at home, however for the past few days she has been requiring increasing oxygen and inhalers. Today she morning she was significantly short of breath and daughter called EMS. In the family and she was found to be hypoxic to 88% on 2 L, improved to 100% with nebulization and 5 L of oxygen. Currently she appears to be in moderate distress, able to speak in full sentences. Vitals in the ED temperature 98.4, pulse 99, respiration 20, blood pressure 137/ 96, saturating 93% on 3 L nasal cannula. Labs significant for leukocytosis of 11.8 with no left shift, sodium 133, proBNP 9980. Chest x-ray showed New airspace opacity in the right mid to lower lung zones compatible with pneumonia with small amount of pleural fluid. Patient received ceftriaxone and azithromycin in the ED did Allergies/Medications Allergies: Coded Allergies: amlodipine (Severe, C/P 05/27/16) codeine (Severe, C/P 05/27/16) morphine (Severe, C/P 05/27/16) omeprazole (Severe, C/P 05/27/16) Past History Travel History Traveled to [place] past 21 day No Medical History Neurological: paraplegia status post spine fx/fall intention tremor EENT: epistaxis Cardiovascular: AFIB (PAF), CAD (s/p stent to RCA vs PTCA), CHF, hypertension, hyperlipidemia, myocardial infarction Respiratory: COPD, interstitial lung disease, LUNG CA RUL LOBECTOMY O2 DEPENDENT 2-3L Gastrointestinal: lactose intolerance, [id number], SIGMOID COLECTOMY 02/13 colonoscopy fair prep - tics but no polyps 02/13- egd gastritis DIVERTICULOSIS COLI Hepatic: NONE Renal: urinary incontinence Musculoskeletal: chronic back pain (post fall), degen joint disease, BROKEN BACK 15 YEARS AGO UNABLE TO BEAR WEIGHT Psychiatric: anxiety Endocrine: diabetes, hypothyroidism Blood Disorders: NONE (chronic), anemia Cancer(s): lung cancer (s/p RUL lobectomy [place] Ca), AdenoCa in situ- sigmoid resection 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 , Age 70. FHx: stomach cancer FATHER ("some type of Ca"- not colon Ca). , Age 63. FH: cancer BROTHER FH: prostate cancer Psychosocial History Who Do You Live With? child, SHE LIVES WITH HER DAUGHTER Services at Home: Nursing, Oxygen Primary Language: [place] Living Will? yes Power of Counter Cutter/HCP? yes Name of POA/HCP: Pt's sonConstantino Functional Ability ADLs Needs Assist: dressing, eating, toileting, bathing. Ambulation: non-ambulatory (W/C) IADLs Needs Assist: shopping, housework, finances, food prep, telephone, transportation, medication admin. Review of Systems Review of Systems Constitutional: Reports: malaise, weakness. EENTM: Reports: no symptoms. Cardiovascular: Reports: orthopena. Respiratory: Reports: orthopnea, short of breath, sputum production. GI: Reports: no symptoms. Genitourinary: Reports: no symptoms. Musculoskeletal: Reports: no symptoms. Exam & Diagnostic Data Last 24 Hrs of Vital Signs/I&O Vital Signs Date Time Temp Pulse Resp B/P B/P Pulse O2 O2 Flow FiO2 Mean Ox Delivery Rate 07/07 1452 97.8 97 18 164/85 94 Nasal 2.0L Cannula 07/07 1330 95 Nasal 2.0L Cannula 07/07 1314 93 Nasal 2.0L Cannula 07/07 1258 98.4 99 20 137/96 93 Nasal 3.0L Cannula Intake & Output 07/07 1600 07/07 0800 04 0000 Intake Total 0 Output Total Balance 0 Intake, Oral 0 Patient 61.235 kg Weight Weight Reported by Patient Measurement Method Physical Exam General Appearance Alert, Oriented X3, Cooperative, Mild Distress Skin No Rashes, No Breakdown HEENT Atraumatic, PERRLA, EOMI Neck No JVD Lymphatic Cervical nl Cardiovascular Normal S1, Normal S2, IRREGULAR Lungs BILATERAL BASAL CRACKLES, DIMINISHED AIR ENTRY, DIMINISHED AIR ENTRY Abdomen Normal Bowel Sounds Neurological BILATERAL LOWER EXTREMITY PARALYSIS Assessment/Plan Assessment: This is a 81-year-old lady with multiple comorbidities including CAD status post MN stent placement,HFPrEF, paroxysmal A. fib on anticoagulation, diabetes COPD on 2 L home oxygen, ILD, lung carcinoma status post right upper lobe resection, history of colon cancer status post sigmoid resection, Gem's thyroiditis presents to the ER with a chief complaint of worsening shortness of breath. Patient had 3 admissions in April hypoxic respiratory failure. On the last admission she was treated for influenza and UTI. Vitals in the ED temperature 98.4, pulse 99, respiration 20, blood pressure 137/ 96, saturating 93% on 3 L nasal cannula. Labs significant for leukocytosis of 11.8 with no left shift, sodium 133, proBNP 9980. Chest x-ray showed New airspace opacity in the right mid to lower lung zones compatible with pneumonia with small amount of pleural fluid. Patient received ceftriaxone and azithromycin in the ED Assessment Acute hypoxic respiratory failure due to pneumonia vs COPD exacerbation vs likely multifactorial heart failure Paroxysmal Atrial fibrillation Heart failure with preserved ejection fraction( 2018 EF60%, [facility]) Gem's thyroiditis Interstitial lung disease Lung cancer status post right upper lobe resection Diabetes mellitus Plan Admit to [facility] Vitals per protocol [facility] nebs [id number] Keep oxygen saturations above 92% Blood and sputum cultures Flu test has been negative Urine strep and Legionella antigen Received 1 dose of ceftriaxone and azithromycin in the ED. Will watch off antibiotics at this time. Solu-Medrol 40 every 8 hours as patient was wheezing on arrival to ED CT chest without IV contrast Appears volume overloaded on exam, elevated proBNP, continue IV Lasix 60 mg daily. Continue home meds Cardizem and Eliquis for atrial fibrillation and anticoagulation Pulmonology consult with Dr. Pleitez in a.m. (discussed plan with him) Cardiology consult with Dr. Langley. 3 times a day Accu-Cheks. NovoLog sliding scale. Hold metformin. DVT prophylaxis Eliquis DNR/DNI As Ranked By This Provider Problem List: 1. Atrial fibrillation 2. CONGESTIVE HEART FAILURE 3. SOB (shortness of breath) 4. Hypoxia Core Measures/Misc (12/17) Acute Coronary Syndrome ACS Diagnosis: No Congestive Heart Failure Congestive Heart Failure Diagnosis Yes Cerebrovascular Accident CVA/TIA Diagnosis: No VTE (View Protocol) VTE Risk Factors CHF or Resp Failure No Mechanical VTE Prophylaxis d/t N/A MechProphylax Ordered No VTE Pharm Prophylaxis d/t Other (ON ELIQIUS) Sepsis (View protocol) Sepsis Present: No Scar Wahl 07/07/17 4531: General Information and HPI Allergies/Medications Home Med list Apixaban (Eliquis) 5 MG TABLET 5 MG PO BID afib . Atorvastatin Calcium 10 MG TABLET 1 TAB PO DAILY CHOLESTEROL (Reported) Budesonide/Formoterol Fumarate (Symbicort 160-4.5 Mcg Inhaler) 160 MCG-4.5 MCG/ ACTUATION HFA.AER.AD 2 PUF INH BID copd Cholecalciferol (Vitamin D3) (Vitamin D) 2,000 UNIT CAPSULE 1 CAP PO DAILY SUPPLEMENT (Reported) Diclofenac Sodium (Voltaren) 1 % GEL..GRAM. 1 GM TOP 4 TIMES/DAY Shoulder pain apply to affected area(s) Diltiazem HCl (Cardizem) 60 MG TABLET 60 MG PO TID A. fib Furosemide 20 MG TABLET 60 MG PO DAILY DIURETIC Guaifenesin (Guaifenesin ER) 600 MG TAB.ER.12H 600 MG PO Q12 PRN COUGH Levothyroxine Sodium (Synthroid) 88 MCG TABLET 1 TAB PO DAILY THYROID PROBLEMS Lorazepam (Ativan) 0.5 MG TABLET 1 TAB PO Q6-8H PRN ANXIETY (Reported) Losartan Potassium (Cozaar) 25 MG TABLET 1 TAB PO DAILY blood pressure control Metformin HCl 500 MG TABLET 1 TAB PO DAILY DM (Reported) Metoprolol Tartrate 25 MG TABLET 1 TAB PO BID HEART HEALTH Attending MD Review Statement Attending Statement Attending MD Statement: examined this patient, discuss w/resident/PA/VIDEO EFFECTS EDITOR, agreed w/resident/PA/VIDEO EFFECTS EDITOR, reviewed EMR data (avail), discussed with nursing Attending Assessment/Plan: Patient seen and examined at bedside. Discussed with patient the care plan. Patient on exam does not have any lower extremity edema at present. Patient was hypoxic in the ER with 88% on 2 L which is her baseline oxygen at home. Patient says she was wheezing when she came to the ER and her breathing has improved after she got Solu-Medrol in the ER and also after getting antibiotics. Her chest x-ray shows-New airspace opacity in the right mid to lower lung zones compatible with pneumonia with small amount of pleural fluid. We will continue her on steroids for possible COPD exacerbation as well as antibiotics for her right lower lobe pneumonia with ceftriaxone and Zithromax. We will follow-up on cardiology consult.
[2017-07-07 16:30] VITALS: BP 152/98
--- NOTE | 2017-07-07 18:49 | Admission Certification ---
Admission Certification Certification Statement - As attending physician, I certify that at the time of - admission, based on clinical presentation, severity of - symptoms, need for further diagnostic testing and - therapeutic interventions, and risk of adverse outcomes - without in-hospital treatment, in my clinical assessment, - this patient requires an acute hospital stay for a minimum - of two nights or longer. I have also considered psychsocial - factors such as support system, advanced age, financial - issues, cognitive issues, and failed out-patient treatments, - past re-admission history, safety of patient, and lack of - compliance as applicable. Specific rationale supporting this admission is: acute hypoxic resp failure / pneumonia/ copd exac
[2017-07-07 21:50] VITALS: BP 142/80
--- NOTE | 2017-07-07 23:07 | CT SCAN REPORT ---
EXAMINATION: CT CHEST WITHOUT CONTRAST CT ABDOMEN AND PELVIS WITHOUT CONTRAST CLINICAL INFORMATION: Shortness of breath. Abdominal pain and diarrhea. COMPARISON: Chest CT 04/26/2017. CT abdomen from 12/19/2016. TECHNIQUE: Multidetector volumetric imaging was performed through the chest, abdomen and pelvis without contrast. Sagittal and coronal reformatted images were obtained on the technologist's workstation. Axial MIP volume rendering provided. DLP: 392 mGy-cm. FINDINGS: CHEST: Lungs: The central airways are patent. Status post right upper lobectomy. Mosaic attenuation of the lung parenchyma. Small bilateral pleural effusions. Intralobular septal thickening with subpleural reticulation noted, appearing increased from previous. On the prior study there are multifocal groundglass opacities in the lung parenchyma which have resolved. No pneumothorax. Mediastinum: The heart is mildly prominent. Mitral annular calcifications. Coronary artery calcifications. No pericardial effusion. No pathologically enlarged mediastinal lymph nodes. Chest Wall/Axilla: No lymphadenopathy. No chest wall mass. ABDOMEN/PELVIS: Liver, Gallbladder, Biliary Tree: The liver is normal in size, shape, and attenuation. No focal hepatic lesion or biliary ductal dilatation is present. Cholecystectomy. Pancreas: Unremarkable. Spleen: Unremarkable. Adrenal Glands: Thickening of the left adrenal gland which is unchanged. The right adrenal gland is unremarkable. Kidneys and Ureters: The kidneys are normal in size, shape, and attenuation. No hydronephrosis, hydroureter or calculi seen. No perinephric stranding. The previous hydronephrosis has resolved. Vascular calcifications are present in both kidneys. Right midpole renal cyst. Bladder: Mild circumferential wall thickening with no focal mass identified. Gastrointestinal Tract: The stomach is unremarkable. The small bowel is normal in caliber. No obstruction. There is colonic diverticulosis without evidence of diverticulitis. No colonic wall thickening or inflammatory change. The rectum is distended with stool. No free air or free fluid. Abdominal Wall: Small fat-containing incisional hernia at the ventral abdominal wall. Diffuse muscular atrophy. Lymphovascular Structures: Lymph nodes: Normal. Vascular: Mild ectasia of the infrarenal abdominal aorta. Moderate atherosclerotic calcifications. The appearance is unchanged. Pelvic Viscera: Unremarkable. OSSEOUS STRUCTURES: No suspicious sclerotic or lytic bone lesions are identified. Degenerative changes throughout the spine. There is posterior hardware in place. There are bilateral pedicular screws in place at L1-L2. There is facet fixation with interconnecting rods which extend superiorly to the level of T9. Stable compression of T12. IMPRESSION: 1. Small bilateral pleural effusions. The appearance of the lungs is most consistent with pulmonary edema. Underlying chronic changes also present, with prior right upper lobectomy as well. 2. No acute findings in the abdomen or pelvis. Colonic diverticulosis without diverticulitis. No inflammatory changes.
[2017-07-08 06:02] VITALS: BP 150/76
--- NOTE | 2017-07-08 08:06 | PN- Housestaff ---
See Addendum Subjective Follow-up For: Acute hypoxic respiratory failure due to pneumonia vs COPD exacerbation vs likely multifactorial heart failure Subjective: Patient seen and examined. Patient is having episodes of epistaxis likely anterior b/l. Overnight 2 to 3 dressing was changed. On our evaluation right- sided bleeding had stopped and left side continued to have epistaxis/ We are going to discontinue the AC , use Afrin spray, Rhino Rocket. She is on chronic home oxygen on 2 L we are going to change it to a mask in setting of epistaxis. Otherwise patient reports improvement in her symptoms. Denies any fevers and chills Review of Systems Constitutional: Reports: see HPI. Objective Last 24 Hrs of Vital Signs/I&O Vital Signs Date Time Temp Pulse Resp B/P B/P Pulse O2 O2 Flow FiO2 Mean Ox Delivery Rate 07/09 927 98 150/70 07/09 927 98 150/70 07/08 0927 98 150/70 07/08 0602 97.5 91 20 150/76 95 07/08 0000 96 Nasal 2.0L Cannula 07/07 2201 118 142/80 07/07 2150 97.4 118 22 142/80 96 Nasal 2.0L Cannula 07/07 2147 134 130/80 07/07 2104 Nasal 2.0L Cannula 07/07 1905 134 130/80 07/07 1725 96 Nasal 2.0L Cannula 07/07 1642 97.6 102 20 148/88 96 Nasal 2.0L Cannula 07/07 1630 98.0 22 152/98 96 Nasal 2.0L Cannula 07/07 1537 97 Nasal 2.0L Cannula 07/07 1452 97.8 97 18 164/85 94 Nasal 2.0L Cannula 07/07 1330 95 Nasal 2.0L Cannula 07/07 1314 93 Nasal 2.0L Cannula 07/07 1258 98.4 99 20 137/96 93 Nasal 3.0L Cannula Intake & Output 07/08 1600 07/08 0800 07/08 0000 Intake Total 250 350 Output Total Balance 250 350 Intake, Oral 250 350 Number 2 Bowel Movements Patient 149 lb 135 lb Weight Weight Bed scale Reported by Patient Measurement Method Physical Exam General Appearance: Alert, Oriented X3 HEENT: Epistaxsis Cardiovascular: Normal S1, Normal S2 Lungs: crackels Abdomen: Normal Bowel Sounds, Soft Neurological: Normal Speech Assessment/Plan Assessment: This is a 81-year-old lady with multiple comorbidities including CAD status post MO stent placement,HFPrEF, paroxysmal A. fib on anticoagulation, diabetes COPD on 2 L home oxygen, ILD, lung carcinoma status post right upper lobe resection, history of colon cancer status post sigmoid resection, Gem's thyroiditis presents to the ER with a chief complaint of worsening shortness of breath. Patient had 3 admissions in April hypoxic respiratory failure. On the last admission she was treated for influenza and UTI. Patient received ceftriaxone and azithromycin in the ED Assessment Acute hypoxic respiratory failure due to pneumonia vs COPD exacerbation vs likely multifactorial heart failure Paroxysmal Atrial fibrillation Heart failure with preserved ejection fraction( 2018 EF60%, [facility]) Gem's thyroiditis Interstitial lung disease Lung cancer status post right upper lobe resection Diabetes mellitus Epistaxis Plan #Acute hypoxic respiratory failure due to pneumonia vs COPD exacerbation vs likely multifactorial heart failure Appears more secondary to her CHF exacerbation rather than COPD and steroids were started in the ED because patient was wheezing on presentation -TRC nebs [id number] -Keep oxygen saturations above 92% -Urine strep and Legionella antigen, Flu test has been negative -Solu-Medrol was initially given, would d/c if ok with pulm -CT chest positive for pulmonary congestion -Patient will benefit from IV Lasix received by mouth Lasix 60 mg in the morning , cardiology consult has been placed, elevated proBNP -Pulmonology consult with Dr. Pleitez #Atrial fibrillation Continue home meds Cardizem for atrial fibrillation - Eliquis on hold in setting of epistaxis #Epistaxis Likely secondary to chronic oxygen use, patient is also on anticoagulation for atrial fibrillation -Afrin spray, Rhino Rocket -Eliquis on hold -ENT consult place #Guaiac-positive stool It was reported by nurse that patient had guaiac positive stool -repeat a CBC -GI consult has been placed 3 times a day Accu-Cheks. NovoLog sliding scale. Hold metformin. Continue her medication DVT prophylaxis Eliquis on hold DNR/DNI Problem List: 1. Respiratory distress Pain Ratin Pain Location: n/a Pain Goal: Pain 4 or less Pain Plan: prn Tomorrow's Labs & Rationales: cbc bep
[2017-07-08 08:15] LABS: ABSOLUTE BASOPHIL COUNT 0 /CUMM (0.0-0.2); ABSOLUTE EOSINOPHIL COUNT 0 /CUMM (0.0-0.7); ABSOLUTE GRANULOCYTE CT 3.9 /CUMM (1.4-6.5); ABSOLUTE LYMPH COUNT 0.6 /CUMM (1.2-3.4); ABSOLUTE MONOCYTE COUNT 0 /CUMM (0.10-0.60); BASOPHIL % 0.1 % (0.0-2.0); EOSINOPHIL % 0 % (0-5); GRANULOCYTE % 86.2 % (42.2-75.2); HEMATOCRIT 30.7 % (37-47); MEAN CORPUSCULAR HGB 28.5 PG (27.0-31.0); MEAN CORPUSCULAR HGB CONC 32.3 G/DL (33.0-37.0); MEAN CORPUSCULAR VOLUME 88.1 FL (81.0-99.0); PLATELET COUNT 420 /CUMM (130-400); RBC DISTRIBUTION WIDTH 15.8 % (11.5-14.5); RED BLOOD CELL CT 3.48 /CUMM (4.20-5.40)
[2017-07-08 09:09] LABS: WHITE BLOOD CELL COUNT 4.6 /CUMM (4.8-10.8)
[2017-07-08 12:47] LABS: ABSOLUTE BASOPHIL COUNT 0 /CUMM (0.0-0.2); ABSOLUTE EOSINOPHIL COUNT 0 /CUMM (0.0-0.7); ABSOLUTE GRANULOCYTE CT 6.5 /CUMM (1.4-6.5); ABSOLUTE LYMPH COUNT 0.6 /CUMM (1.2-3.4); ABSOLUTE MONOCYTE COUNT 0.1 /CUMM (0.10-0.60); BASOPHIL % 0.1 % (0.0-2.0); EOSINOPHIL % 0 % (0-5); GRANULOCYTE % 89.4 % (42.2-75.2); HEMATOCRIT 30.8 % (37-47); MEAN CORPUSCULAR HGB 28.7 PG (27.0-31.0); MEAN PLATELET VOLUME 7.6 FL (7.4-10.4); PLATELET COUNT 440 /CUMM (130-400); RBC DISTRIBUTION WIDTH 16.1 % (11.5-14.5); RED BLOOD CELL CT 3.54 /CUMM (4.20-5.40)
--- NOTE | 2017-07-08 12:50 | Cons- Pulmonary ---
General Information and HPI Consulting Request Date of Consult: 07/08/17 Requested By: med team History of Present Illness: This is a 81-year-old lady with multiple comorbidities including CAD status post ID stent placement,HFPrEF, paroxysmal A. fib on anticoagulation, diabetes COPD on 2 L home oxygen, ILD, lung carcinoma status post right upper lobe resection, history of colon cancer status post sigmoid resection and Gem's thyroiditis presents to the ER with a chief complaint of worsening shortness of breath. Patient had 3 admissions in April hypoxic respiratory failure. On the last admission she was treated for influenza and UTI. Patient reports post discharge from the hospital she never came back to her baseline. She continued to have worsening shortness of breath, clear productive sputum and fatigue. She wasn't able to get up from bed to sit on her wheelchair. She denied fevers but continued to be cold and clammy. She is on 2.5 L of oxygen at home, however for the past few days she has been requiring increasing oxygen and inhalers. Today she morning she was significantly short of breath and daughter called EMS. In the family and she was found to be hypoxic to 88% on 2 L, improved to 100% with nebulization and 5 L of oxygen. Currently she appears to be in moderate distress, able to speak in full sentences. Vitals in the ED temperature 98.4, pulse 99, respiration 20, blood pressure 137/ 96, saturating 93% on 3 L nasal cannula. Labs significant for leukocytosis of 11.8 with no left shift, sodium 133, proBNP 9980. Patient received ceftriaxone and azithromycin in the ED CT chest done later showed CHF She has history of recurrent epistaxis and has had a sig nasal bleed Allergies/Medications Allergies: Coded Allergies: amlodipine (Severe, C/P 05/27/16) codeine (Severe, C/P 05/27/16) morphine (Severe, C/P 05/27/16) omeprazole (Severe, C/P 05/27/16) Home Med List: Amoxicillin 500 MG TABLET 1 TAB PO TID SINUSITIS Apixaban (Eliquis) 5 MG TABLET 5 MG PO BID afib . Atorvastatin Calcium 10 MG TABLET 1 TAB PO DAILY CHOLESTEROL (Reported) Budesonide/Formoterol Fumarate (Symbicort 160-4.5 Mcg Inhaler) 160 MCG-4.5 MCG/ ACTUATION HFA.AER.AD 2 PUF INH BID copd Cholecalciferol (Vitamin D3) (Vitamin D) 2,000 UNIT CAPSULE 1 CAP PO DAILY SUPPLEMENT (Reported) Diclofenac Sodium (Voltaren) 1 % GEL..GRAM. 1 GM TOP 4 TIMES/DAY Shoulder pain apply to affected area(s) Diltiazem HCl (Cardizem) 60 MG TABLET 60 MG PO TID A. fib Furosemide 20 MG TABLET 60 MG PO DAILY DIURETIC Guaifenesin (Guaifenesin ER) 600 MG TAB.ER.12H 600 MG PO Q12 PRN COUGH Levothyroxine Sodium (Synthroid) 88 MCG TABLET 1 TAB PO DAILY THYROID PROBLEMS Lorazepam (Ativan) 0.5 MG TABLET 1 TAB PO Q6-8H PRN ANXIETY (Reported) Losartan Potassium (Cozaar) 25 MG TABLET 1 TAB PO DAILY blood pressure control Metformin HCl 500 MG TABLET 1 TAB PO DAILY DM (Reported) Metoprolol Tartrate 25 MG TABLET 1 TAB PO BID HEART HEALTH Oseltamivir Phosphate (Tamiflu) 30 MG CAPSULE 30 MG PO BID FLU Review of Systems Comments Reports: malaise, weakness. EENTM: Reports: no symptoms. Cardiovascular: Reports: orthopena. Respiratory: Reports: orthopnea, short of breath, sputum production. GI: Reports: no symptoms. Genitourinary: Reports: no symptoms. Musculoskeletal: Reports: no symptoms. Past History Travel History Traveled to [place] past 21 day No Medical History Blood Transfusion Hx: Yes Neurological: dizziness, paraplegia status post spine fx/fall intention tremor EENT: epistaxis Cardiovascular: AFIB (PAF), CAD (s/p stent to RCA vs PTCA), CHF, hypertension, hyperlipidemia, myocardial infarction Respiratory: COPD, interstitial lung disease, LUNG CA RUL LOBECTOMY O2 DEPENDENT 2-3L Gastrointestinal: lactose intolerance, [id number], SIGMOID COLECTOMY 02/13 colonoscopy fair prep - tics but no polyps 02/13- egd gastritis DIVERTICULOSIS COLI Hepatic: NONE Renal: urinary incontinence, UTIs Musculoskeletal: chronic back pain (post fall), degen joint disease, BROKEN BACK 1999 UNABLE TO BEAR WEIGHT Psychiatric: anxiety Endocrine: hypothyroidism, DIABETES TYPE 2 Blood Disorders: NONE (chronic), anemia Cancer(s): lung cancer (s/p RUL lobectomy SC Ca), AdenoCa in situ- sigmoid resection TRANSPORTATION AIDE/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 , Age 70. FHx: stomach cancer FATHER ("some type of Ca"- not colon Ca). , Age 63. FH: cancer BROTHER FH: prostate cancer Psychosocial History Where Do You Live? Home Who Do You Live With? child, SHE LIVES WITH HER DAUGHTER Services at Home: Nursing, Oxygen Primary Language: Malay Smoking Status: Former Smoker Living Will? yes Power of Manager Talent/HCP? yes Name of POA/HCP: Pt's son, Constantino [place] Functional Ability ADLs Needs Assist: dressing, eating, toileting, bathing. Ambulation: non-ambulatory (W/C) IADLs Needs Assist: shopping, housework, finances, food prep, telephone, transportation, medication admin. Exam & Diagnostic Data Last 24 Hrs of Vital Signs/I&O Vital Signs Date Time Temp Pulse Resp B/P B/P Pulse O2 O2 Flow FiO2 Mean Ox Delivery Rate 07/08 0928 98 150/70 07/08 0928 98 150/70 07/08 0927 98 150/70 07/08 0602 97.5 91 20 150/76 95 0408 0000 96 Nasal 2.0L Cannula 07/07 2201 118 142/80 07/07 2150 97.4 118 22 142/80 96 Nasal 2.0L Cannula 07/07 2147 134 130/80 07/07 2104 Nasal 2.0L Cannula 07/07 1905 134 130/80 07/07 1725 96 Nasal 2.0L Cannula 07/07 1642 97.6 102 20 148/88 96 Nasal 2.0L Cannula 07/07 1630 98.0 22 152/98 96 Nasal 2.0L Cannula 07/07 1537 97 Nasal 2.0L Cannula 07/07 1452 97.8 97 18 164/85 94 Nasal 2.0L Cannula 07/07 1330 95 Nasal 2.0L Cannula 07/07 1314 93 Nasal 2.0L Cannula 07/07 1258 98.4 99 20 137/96 93 Nasal 3.0L Cannula Intake & Output 07/08 1600 07/08 0800 07/08 0000 Intake Total 250 350 Output Total Balance 250 350 Intake, Oral 250 350 Number 2 Bowel Movements Patient 149 lb 135 lb Weight Weight Bed scale Reported by Patient Measurement Method Last 48 Hrs of Labs/Twan: Laboratory Tests 07/08/17 1230: CBC w Diff Pending, WBC Pending, RBC Pending, Hgb Pending, Hct Pending, MCV Pending, MCH Pending, MCHC Pending, RDW Pending, Plt Count Pending, MPV Pending 07/08/17 0650: Anion Gap 14, Estimated GFR > 60, BUN/Creatinine Ratio 30.0 H, CBC w Diff NO MAN DIFF REQ, RBC 3.48 L, MCV 88.1, MCH 28.5, MCHC 32.3 L, RDW 15.8 H, MPV 8.0, Gran % 86.2 H, Lymphocytes % 12.6 L, Monocytes % 1.1 L, Eosinophils % 0, Basophils % 0.1, Absolute Granulocytes 3.9, Absolute Lymphocytes 0.6 L, Absolute Monocytes 0 L, Absolute Eosinophils 0, Absolute Basophils 0 07/07/17 1305: Anion Gap 12, Estimated GFR > 60, BUN/Creatinine Ratio 25.0, Glucose 197 H, Calcium 9.5, Total Bilirubin 1.2, AST 23, ALT 35, Alkaline Phosphatase 86, Troponin I < 0.01, [id number] Pept 9980 H, Total Protein 7.6, Albumin 3.7, Globulin 3.9, Albumin/Globulin Ratio 0.9 L, CBC w Diff NO MAN DIFF REQ, RBC 3.89 L, MCV 88.9, MCH 28.7, MCHC 32.3 L, RDW 16.1 H, MPV 7.6, Gran % 71.5 , Lymphocytes % 22.8, Monocytes % 3.3, Eosinophils % 1.8, Basophils % 0.6, Absolute Granulocytes 8.4 H, Absolute Lymphocytes 2.7, Absolute Monocytes 0.4, Absolute Eosinophils 0.2, Absolute Basophils 0.1 Microbiology 07/07 1317 NASOPHARYN: Influenza Virus A & B Rapid Smear - COMP Assessment/Plan Impression/Plan: CT chest IMPRESSION: 1. Small bilateral pleural effusions. The appearance of the lungs is most consistent with pulmonary edema. Underlying chronic changes also present, with prior right upper lobectomy as well. 2. No acute findings in the abdomen or pelvis. Colonic diverticulosis without diverticulitis. No inflammatory changes. 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 now presumed cured, hypertension, paroxysmal atrial fibrillation was on amiodarone (which has been stopped due to presumed toxicity before, however pt was not converted to sinus rhythm with this )and anticoagulation, previous tachycardia-induced acute pulmonary edema, drug-eluting stent to the RCA in May 2014, paraplegia, nosebleeds, chronic anemia with previous negative GI workup, recurrent bronchitis with mild interstitial lung disease, moderate obstructive pulmonary disease as well now comes in with * Acute hypoxic and hypercarbic resp failure due to acute pulm edema due to afib / diastolic chf * History of recurrent rapid afib with shortness of breath with tachy cardia induced pulm edema, in the past * Mild effusion due to chf * Epistaxis with previous history of recurrent epistaxis with anemia * History of Recent UTI / * Sig COPD and ILD with wheezing due to pulm edema * Previous PCI with stent, * 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 * Pulmonary hypertension multifactorial * Chronic small airway disease, mild ILD on top of her mod COPD * Chronic paraplegia * Platypnea with no evidence of any shunt with previous work up for ASD or any shunt physiology neg, and no evidence of decompensated liver disease (is not short of breath while she sits in her wheel chair but cannot sit up in bed) * Chronic stable ischemic heart disease with stent as noted * Previous lung ca with no sig recurrence REC Cont current meds IV lasix Ipratropium nebs atc q6 prn Saline nasal spray to both nostril Dc afrin nasal spray after today Hold systemic steroids unless she is wheezing, can dc and observe Hold further abx Keep sat at 90 percent and dc oxygen during the day if her sat stays more than 90 and pt to use oxygen at hs with humidification Rpt free t4 and tsh and Reduce levoxyl now to 75 from 88 if her tsh is less than 3 Will follow Consult Acknowledgment - Thank you for your consult request.
[2017-07-08 13:19] LABS: WHITE BLOOD CELL COUNT 7.3 /CUMM (4.8-10.8)
[2017-07-08 14:29] VITALS: BP 140/70
--- NOTE | 2017-07-08 19:43 | Cons- Cardiology ---
General Information and HPI Consulting Request Date of Consult: 07/08/17 Requested By: Scar Wahl MD Reason for Consult: CHF History of Present Illness: The patient is an 81-year-old female with history of hypertension, paroxysmal atrial fibrillation, coronary artery disease, and heart failure with preserved ejection fraction who is followed by Dr. Langley. She presents with complaint of shortness of breath. She has been short of breath for months, however over the past few days she had significant worsening of her shortness of breath. She normally is on 2.5 L of oxygen at home, however for the past few days she has been requiring increased oxygen and has been using her inhalers more often. This morning she was short of breath, and she was found to be hypoxic with oxygen saturation of 88% on 2 L. She was significantly short of breath on presentation, however she is feeling better at this time. Antibiotic therapy has been started for possible pneumonia. No chest pain. No syncope. No nausea or vomiting. No palpitations. No lightheadedness or dizziness. Allergies/Medications Allergies: Coded Allergies: amlodipine (Severe, C/P 05/27/16) codeine (Severe, C/P 05/27/16) morphine (Severe, C/P 05/27/16) omeprazole (Severe, C/P 05/27/16) Home Med List: Amoxicillin 500 MG TABLET 1 TAB PO TID SINUSITIS Apixaban (Eliquis) 5 MG TABLET 5 MG PO BID afib . Atorvastatin Calcium 10 MG TABLET 1 TAB PO DAILY CHOLESTEROL (Reported) Budesonide/Formoterol Fumarate (Symbicort 160-4.5 Mcg Inhaler) 160 MCG-4.5 MCG/ ACTUATION HFA.AER.AD 2 PUF INH BID copd Cholecalciferol (Vitamin D3) (Vitamin D) 2,000 UNIT CAPSULE 1 CAP PO DAILY SUPPLEMENT (Reported) Diclofenac Sodium (Voltaren) 1 % GEL..GRAM. 1 GM TOP 4 TIMES/DAY Shoulder pain apply to affected area(s) Diltiazem HCl (Cardizem) 60 MG TABLET 60 MG PO TID A. fib Furosemide 20 MG TABLET 60 MG PO DAILY DIURETIC Guaifenesin (Guaifenesin ER) 600 MG TAB.ER.12H 600 MG PO Q12 PRN COUGH Levothyroxine Sodium (Synthroid) 88 MCG TABLET 1 TAB PO DAILY THYROID PROBLEMS Lorazepam (Ativan) 0.5 MG TABLET 1 TAB PO Q6-8H PRN ANXIETY (Reported) Losartan Potassium (Cozaar) 25 MG TABLET 1 TAB PO DAILY blood pressure control Metformin HCl 500 MG TABLET 1 TAB PO DAILY DM (Reported) Metoprolol Tartrate 25 MG TABLET 1 TAB PO BID HEART HEALTH Oseltamivir Phosphate (Tamiflu) 30 MG CAPSULE 30 MG PO BID FLU Current Medications: Current Medications Sig/Jonel Start time Last Medication Dose Route Stop Time Status Admin Acetaminophen 325 MG Q6P PRN 07/07 1515 AC PO Albuterol Sulfate 3 ML TID 07/07 2200 AC 07/07 INH 2101 Apixaban 5 MG BID 07/07 2200 DC 07/07 PO 2147 Atorvastatin Calcium 10 MG DAILY 07/08 1000 AC 07/08 PO 0927 Benzonatate 100 MG TID PRN 07/08 1111 AC 07/08 PO 1532 Budesonide/ 2 PUF BID 07/07 2200 AC 07/08 Formoterol Fumarate INH 1032 Diltiazem HCl 60 MG TID 07/07 1600 AC 07/08 PO 1636 Furosemide 60 MG DAILY 07/07 1628 AC 07/08 PO 0927 Guaifenesin 600 MG Q12 PRN 07/07 1530 AC PO Insulin Aspart 0 TIDAC 07/07 1700 AC 07/08 SC 1720 Levothyroxine Sodium 0.088 MG DAILY AC 07/08 0700 AC 07/08 PO 0503 Lorazepam 0.5 MG Q8P PRN 07/08 0045 AC 07/08 PO 07/15 0044 0114 Losartan Potassium 25 MG DAILY 07/08 1000 AC 07/08 PO 0928 Methylprednisolone 40 MG Q8 07/07 2200 DC 07/08 IV 1442 Metoprolol Tartrate 25 MG BID 07/07 2200 AC 07/08 PO 0928 Oxymetazoline HCl 2 SPRAY BID 07/08 1000 AC 07/08 CHASE 07/09 0100 0837 Sodium Chloride 2 SPRAY Q4P PRN 07/08 1500 AC CHASE Review of Systems Review of Systems: No hemoptysis. No hematemesis. No fever. No chills. All other systems were reviewed, and were noted to be negative. Past History Travel History Traveled to [place] past 21 day No Medical History Blood Transfusion Hx: Yes Neurological: dizziness, paraplegia status post spine fx/fall intention tremor EENT: epistaxis Cardiovascular: AFIB (PAF), CAD (s/p stent to RCA vs PTCA), CHF, hypertension, hyperlipidemia, myocardial infarction Respiratory: COPD, interstitial lung disease, LUNG CA RUL LOBECTOMY O2 DEPENDENT 2-3L Gastrointestinal: lactose intolerance, [id number], SIGMOID COLECTOMY 02/13 colonoscopy fair prep - tics but no polyps 02/13- egd gastritis DIVERTICULOSIS COLI Hepatic: NONE Renal: urinary incontinence, UTIs Musculoskeletal: chronic back pain (post fall), degen joint disease, BROKEN BACK 1999 UNABLE TO BEAR WEIGHT Psychiatric: anxiety Endocrine: hypothyroidism, DIABETES TYPE 2 Blood Disorders: NONE (chronic), anemia Cancer(s): lung cancer (s/p RUL lobectomy SC Ca), AdenoCa in situ- sigmoid resection 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 , Age 70. FHx: stomach cancer FATHER ("some type of Ca"- not colon Ca). , Age 63. FH: cancer BROTHER FH: prostate cancer Psychosocial History Where Do You Live? Home Who Do You Live With? child, SHE LIVES WITH HER DAUGHTER Services at Home: Nursing, Oxygen Primary Language: Hebrew Smoking Status: Former Smoker Living Will? yes Power of Line Closer/HCP? yes Name of POA/HCP: Pt's sonConstantino Functional Ability ADLs Needs Assist: dressing, eating, toileting, bathing. Ambulation: non-ambulatory (W/C) IADLs Needs Assist: shopping, housework, finances, food prep, telephone, transportation, medication admin. ECHO Results (as available) Report: CONCLUSIONS 1. Mildly decreased EF of 45% with moderate anterior and anteroseptal wall hypokinesis. 2. Mild left ventricular hypertrophy. 3. Mild mitral regurgitation. 4. Mild tricuspid regurgitation. Exam & Diagnostic Data Vital Signs and I&O Vital Signs Date Time Temp Pulse Resp B/P B/P Pulse O2 O2 Flow FiO2 Mean Ox Delivery Rate 07/08 1645 90 Room Air 07/08 1636 80 128/82 07/08 1429 97.9 89 20 140/70 94 Room Air 07/09 927 98 150/70 07/09 927 98 150/70 07/08 0927 98 150/70 07/08 08 94 Venti Mask 3.0L 07/08 0602 97.5 91 20 150/76 95 07/08 0000 96 Nasal 2.0L Cannula 07/07 2201 118 142/80 07/07 2150 97.4 118 22 142/80 96 Nasal 2.0L Cannula 07/07 2147 134 130/80 07/07 2104 Nasal 2.0L Cannula Intake & Output 07/08 0000 07/07 1600 07/07 0000 Intake Total 720 250 350 0 Output Total Balance 720 250 350 0 Intake, Oral 720 250 350 0 Number 2 2 Bowel Movements Patient 149 lb 135 lb 135 lb Weight Weight Bed scale Reported by Patient Reported by Patient Measurement Method Physical Exam: Gen: The patient is in no acute distress HEENT: Normal nose, ears, and oropharynx. Pupils equal bilaterally. Conjunctiva normal. Neck: Supple with no JVD, no masses, and no thyromegaly Lungs: Bilateral rales with increased respiratory effort Heart: irreg irreg, S1, S2, no murmurs. No peripheral edema, 2+ pulses in the lower extremities bilaterally Abdomen: Soft, nontender, no masses. No hepatomegaly. No splenomegaly Extremities: No clubbing or cyanosis. Bilateral lower extremity paralysis Skin: Normal skin turgor with no skin ulcers or lesions noted. Neuro: Cranial nerves intact. Sensation intact. Psych: Alert and oriented x 3 with appropriate affect Labs/Twan Results: Laboratory Tests 07/08 07/08 1230 0650 Chemistry Sodium (137 - 145 mmol/L) 135 L Potassium (3.5 - 5.1 mmol/L) 3.8 Chloride (98 - 107 mmol/L) 92 L Carbon Dioxide (22 - 30 mmol/L) 28 Anion Gap (5 - 16) 14 BUN (7 - 17 mg/dL) 24 H Creatinine (0.5 - 1.0 mg/dL) 0.8 Estimated GFR (>60 ml/min) > 60 BUN/Creatinine Ratio (7 - 25 %) 30.0 H TSH (0.270 - 4.200 uIU/mL) 1.470 Free T4 (0.85 - 1.93 ng/dL) 1.83 Hematology CBC w Diff NO MAN DIFF REQ NO MAN DIFF REQ WBC (4.8 - 10.8 /CUMM) 7.3 4.6 L RBC (4.20 - 5.40 /CUMM) 3.54 L 3.48 L Hgb (12.0 - 16.0 G/DL) 10.1 L 9.9 L Hct (37 - 47 %) 30.8 L 30.7 L MCV (81.0 - 99.0 FL) 87.0 88.1 MCH (27.0 - 31.0 PG) 28.7 28.5 MCHC (33.0 - 37.0 G/DL) 33.0 32.3 L RDW (11.5 - 14.5 %) 16.1 H 15.8 H Plt Count (130 - 400 /CUMM) 440 H 420 H MPV (7.4 - 10.4 FL) 7.6 8.0 Gran % (42.2 - 75.2 %) 89.4 H 86.2 H Lymphocytes % (20.5 - 51.1 %) 8.5 L 12.6 L Monocytes % (1.7 - 9.3 %) 2.0 1.1 L Eosinophils % (0 - 5 %) 0 0 Basophils % (0.0 - 2.0 %) 0.1 0.1 Absolute Granulocytes (1.4 - 6.5 /CUMM) 6.5 3.9 Absolute Lymphocytes (1.2 - 3.4 /CUMM) 0.6 L 0.6 L Absolute Monocytes (0.10 - 0.60 /CUMM) 0.1 0 L Absolute Eosinophils (0.0 - 0.7 /CUMM) 0 0 Absolute Basophils (0.0 - 0.2 /CUMM) 0 0 04/07 1305 Chemistry Sodium (137 - 145 mmol/L) 133 L Potassium (3.5 - 5.1 mmol/L) 4.8 Chloride (98 - 107 mmol/L) 95 L Carbon Dioxide (22 - 30 mmol/L) 26 Anion Gap (5 - 16) 12 BUN (7 - 17 mg/dL) 20 H Creatinine (0.5 - 1.0 mg/dL) 0.8 Estimated GFR (>60 ml/min) > 60 BUN/Creatinine Ratio (7 - 25 %) 25.0 Glucose (65 - 99 mg/dL) 197 H Calcium (8.4 - 10.2 mg/dL) 9.5 Total Bilirubin (0.2 - 1.3 mg/dL) 1.2 AST (14 - 36 U/L) 23 ALT (9 - 52 U/L) 35 Alkaline Phosphatase (<127 U/L) 86 Troponin I (< 0.11 ng/ml) < 0.01 [id number] Pept (<125 pg/mL) 9980 H Total Protein (6.3 - 8.2 g/dL) 7.6 Albumin (3.5 - 5.0 g/dL) 3.7 Globulin (1.9 - 4.2 gm/dL) 3.9 Albumin/Globulin Ratio (1.1 - 2.2 %) 0.9 L Hematology CBC w Diff NO MAN DIFF REQ WBC (4.8 - 10.8 /CUMM) 11.8 H RBC (4.20 - 5.40 /CUMM) 3.89 L Hgb (12.0 - 16.0 G/DL) 11.2 L Hct (37 - 47 %) 34.5 L MCV (81.0 - 99.0 FL) 88.9 MCH (27.0 - 31.0 PG) 28.7 MCHC (33.0 - 37.0 G/DL) 32.3 L RDW (11.5 - 14.5 %) 16.1 H Plt Count (130 - 400 /CUMM) 475 H MPV (7.4 - 10.4 FL) 7.6 Gran % (42.2 - 75.2 %) 71.5 Lymphocytes % (20.5 - 51.1 %) 22.8 Monocytes % (1.7 - 9.3 %) 3.3 Eosinophils % (0 - 5 %) 1.8 Basophils % (0.0 - 2.0 %) 0.6 Absolute Granulocytes (1.4 - 6.5 /CUMM) 8.4 H Absolute Lymphocytes (1.2 - 3.4 /CUMM) 2.7 Absolute Monocytes (0.10 - 0.60 /CUMM) 0.4 Absolute Eosinophils (0.0 - 0.7 /CUMM) 0.2 Absolute Basophils (0.0 - 0.2 /CUMM) 0.1 Diagnostic Data EKG Results EKG tracing is independently reviewed, and reveals atrial fibrillation with ventricular response of 88, left bundle branch block CXR Results New airspace opacity in the right mid to lower lung zones compatible with pneumonia with small amount of pleural fluid. Other Results CT scan of the chest: 1. Small bilateral pleural effusions. The appearance of the lungs is most consistent with pulmonary edema. Underlying chronic changes also present, with prior right upper lobectomy as well. 2. No acute findings in the abdomen or pelvis. Colonic diverticulosis without diverticulitis. No inflammatory changes. Echocardiogram 04/13/17: 1. Normal EF of 60%. 2. Mild left ventricular hypertrophy. 3. Moderate mitral regurgitation. 4. Mild tricuspid reurgitation. 5. Mild aortic regurgitation. 6. Trace pulmonic regurgitation. Assessment/Plan Assessment/Plan The patient is an 81-year-old female with history of CAD, atrial fibrillation, COPD, heart failure with preserved ejection fraction presenting with shortness of breath. Clinical findings are consistent with possible acute diastolic heart failure exacerbation in addition to COPD exacerbation and possible pneumonia. Recommendations: * Would diurese with IV Lasix 60 mg every 12 hours * Follow input and output with daily weights * Continue Eliquis * Continue other cardiac medications Consult Acknowledgment - Thank you for your consult request.
[2017-07-08 21:50] VITALS: BP 110/50
[2017-07-09 05:55] VITALS: BP 150/66
[2017-07-09 09:49] LABS: ABSOLUTE BASOPHIL COUNT 0 /CUMM (0.0-0.2); ABSOLUTE EOSINOPHIL COUNT 0 /CUMM (0.0-0.7); ABSOLUTE GRANULOCYTE CT 8.4 /CUMM (1.4-6.5); ABSOLUTE LYMPH COUNT 0.6 /CUMM (1.2-3.4); ABSOLUTE MONOCYTE COUNT 0.3 /CUMM (0.10-0.60); BASOPHIL % 0 % (0.0-2.0); EOSINOPHIL % 0 % (0-5); GRANULOCYTE % 90.1 % (42.2-75.2); HEMATOCRIT 28.5 % (37-47); MEAN CORPUSCULAR HGB 28.8 PG (27.0-31.0); MEAN CORPUSCULAR HGB CONC 33.2 G/DL (33.0-37.0); MEAN CORPUSCULAR VOLUME 86.7 FL (81.0-99.0); MEAN PLATELET VOLUME 8.3 FL (7.4-10.4); PLATELET COUNT 381 /CUMM (130-400); RBC DISTRIBUTION WIDTH 16.6 % (11.5-14.5); RED BLOOD CELL CT 3.28 /CUMM (4.20-5.40)
[2017-07-09 10:32] LABS: WHITE BLOOD CELL COUNT 9.3 /CUMM (4.8-10.8)
--- NOTE | 2017-07-09 11:51 | PN- Housestaff ---
Angelito VENCES,Jayla 07/09/17 1151: Subjective Follow-up For: Acute hypoxic respiratory failure secondary to CHF Subjective: Patient has been seen and examined. resting comfortably. States her shortness of breath is better. Epistaxis is resolving. Patient was evaluated by cardiology yesterday home versus assisted 60 mg Lasix IV and resuming Eliquis Review of Systems Constitutional: Reports: see HPI. Objective Last 24 Hrs of Vital Signs/I&O Vital Signs Date Time Temp Pulse Resp B/P B/P Pulse O2 O2 Flow FiO2 Mean Ox Delivery Rate 07/09 1336 97.6 86 20 132/80 92 Room Air 07/09 0958 83 145/80 07/09 0957 83 145/80 07/09 0957 83 145/80 07/09 0809 94 Room Air 07/09 0555 97.6 86 20 150/66 92 07/09 0000 Venti Mask 07/08 2205 78 110/50 07/08 2204 78 110/50 07/08 2150 97.6 78 20 110/50 90 Room Air 07/08 1645 90 Room Air 07/08 1636 80 128/82 07/08 1429 97.9 89 20 140/70 94 Room Air Intake & Output 07/09 1600 07/09 0800 07/09 0000 Intake Total 240 240 Output Total Balance 240 240 Intake, Oral 240 240 Number 1 Bowel Movements Patient 160 lb 162 lb Weight Weight Bed scale Bed scale Measurement Method Physical Exam General Appearance: Alert HEENT: Atraumatic Cardiovascular: Normal S1, irregualr Lungs: bibasilar crackels Abdomen: Normal Bowel Sounds, Soft Neurological: Normal Speech Current Medications: Current Medications Sig/Jonel Start time Last Medication Dose Route Stop Time Status Admin Acetaminophen 325 MG Q6P PRN 07/07 1515 AC PO Albuterol Sulfate 3 ML TID 07/07 2200 AC 07/09 INH 1353 Apixaban 5 MG BID 07/09 1000 AC 07/09 PO 0958 Atorvastatin Calcium 10 MG DAILY 07/08 1000 AC 07/09 PO 0958 Benzonatate 100 MG TID PRN 07/08 1111 AC 07/08 PO 1532 Budesonide/ 2 PUF BID 07/07 2200 AC 07/09 Formoterol Fumarate INH 0959 Diltiazem HCl 60 MG TID 07/07 1600 AC 07/09 PO 0957 Furosemide 60 MG 7:30 AM, & 4:30 PM 04/09 1630 AC IV Furosemide 60 MG BID 07/09 1000 CAN PO Furosemide 60 MG DAILY 07/07 1628 DC 07/08 PO 0927 Guaifenesin 600 MG Q12 PRN 07/07 1530 AC PO Insulin Aspart 0 TIDAC 07/07 1700 AC 07/09 SC 1229 Levothyroxine Sodium 0.088 MG DAILY AC 07/08 0700 AC 07/09 PO 0531 Lorazepam 0.5 MG Q8P PRN 07/08 0045 AC 07/08 PO 07/15 0044 0114 Losartan Potassium 25 MG DAILY 07/08 1000 AC 07/09 PO 0957 Methylprednisolone 40 MG Q8 07/07 2200 DC 07/08 IV 1442 Metoprolol Tartrate 25 MG BID 07/07 2200 AC 07/09 PO 0958 Oxymetazoline HCl 2 SPRAY BID 07/08 1000 DC 07/08 CHASE 07/09 0100 2205 Sodium Chloride 2 SPRAY Q4P PRN 07/08 1500 AC 07/09 CHASE 0956 Last 24 Hrs of Lab/Twan Results Last 24 Hrs of Labs/Mics: Laboratory Tests 07/09/17 1250: Urine Color Pending, Urine Clarity Pending, Urine pH Pending, Ur Specific [place] Pending, Urine Protein Pending, Urine Ketones Pending, Urine Nitrite Pending, Urine Bilirubin Pending, Urine Urobilinogen Pending, Ur Leukocyte Esterase Pending, Ur Microscopic SEDIMENT EXAMINED, Urine RBC Pending, Urine Hemoglobin Pending, Urine Glucose Pending 07/09/17 0812: Troponin I Cancelled 07/09/17 0708: Anion Gap 12, Estimated GFR > 60, BUN/Creatinine Ratio 36.7 H, Magnesium 1.7, Troponin I < 0.01, CBC w Diff NO MAN DIFF REQ, RBC 3.28 L, MCV 86.7, MCH 28.8, MCHC 33.2, RDW 16.6 H, MPV 8.3, Gran % 90.1 H, Lymphocytes % 6.8 L, Monocytes % 3.1, Eosinophils % 0, Basophils % 0, Absolute Granulocytes 8.4 H, Absolute Lymphocytes 0.6 L, Absolute Monocytes 0.3, Absolute Eosinophils 0, Absolute Basophils 0 Microbiology 07/09 1250 URINE ROUT: Urine Culture - RECD Assessment/Plan Assessment: This is a 81-year-old lady with multiple comorbidities including CAD status post MD stent placement,HFPrEF, paroxysmal A. fib on anticoagulation, diabetes COPD on 2 L home oxygen, ILD, lung carcinoma status post right upper lobe resection, history of colon cancer status post sigmoid resection, Gem's thyroiditis presents to the ER with a chief complaint of worsening shortness of breath. Patient had 3 admissions in April hypoxic respiratory failure. On the last admission she was treated for influenza and UTI. Patient received ceftriaxone and azithromycin in the ED Assessment Acute hypoxic respiratory failure due to pneumonia vs COPD exacerbation vs likely multifactorial heart failure Paroxysmal Atrial fibrillation Heart failure with preserved ejection fraction( 2017 EF60%, [facility]) Gem's thyroiditis Interstitial lung disease Lung cancer status post right upper lobe resection Diabetes mellitus Epistaxis Plan #Acute hypoxic respiratory failure Appears more secondary to her CHF exacerbation rather than COPD and steroids was given in the ED because patient was wheezing on presentation. CT chest positive for pulmonary congestion. She also received 1 dose of ceftriaxone and azithromycin for presumed pneumonia in ED however CT is negative for infiltrate and-Urine strep and Legionella antigen, Flu test has been negative -TRC nebs [id number] -Keep oxygen saturations above 92% -IV Lasix 60 mg twice a day switch to oral tomorrow #Atrial fibrillation Continue home meds Cardizem and Eliquis (resumed) for atrial fibrillation #Epistaxis Likely secondary to chronic oxygen use, patient is also on anticoagulation for atrial fibrillation -Resolved today, contiue to monitor #Guaiac-positive stool It was reported by nurse that patient had guaiac positive stool, repeat CBC stable -Continue to monitor #Hx of DM 3 times a day Accu-Cheks. NovoLog sliding scale. Hold metformin. Continue her medication #HX of Gem thyroiditis Patient is on levothyroxine 88 g. TSH is 1.5 free T4 is 1.5 -consider decreasing the dose of levothyroxine to 75 -Endo consult placed with #Diabetic /DVT prophylaxis with Eliquis/DNR/DNI Problem List: 1. CONGESTIVE HEART FAILURE Pain Ratin Pain Location: n/a Pain Goal: Pain 4 or less Pain Plan: prn Tomorrow's Labs & Rationales: cbc bep Iona Miller MD 07/09/17 1421: Attending MD Review Statement Attending Statement Attending MD Statement: examined this patient, discuss w/resident/PA/VISCERA WASHER, agreed w/resident/PA/VISCERA WASHER, reviewed EMR data (avail), discussed with nursing, discussed with case mgmt, amended to note Attending Assessment/Plan: Patient is a very pleasant lady. Lying in bed does not appear to be in any acute respiratory distress. She has been taken off oxygen supplementation this morning. She reports using oxygen only at nighttime at home. She reports feeling significantly better compared to presentation. Patient reports not taking her diuretic therapy for a few days at home because of urinary incontinence while in bed. Patient is essentially bedbound requiring assistance with all activities. She is cared for by her daughter. She presented with acute hypoxic and hypercapnic respiratory failure this was due to acute pulmonary edema likely brought on by her poor medication compliance. On presentation she also complained of epistaxis Which has been recurrent for the patient. She is on chronic anticoagulation therapy. Fortunately her hemoglobin level is stable and the degree of epistaxis is not significant at present. On examination she is not in any acute respiratory distress. She has no use of accessory muscles. Heart sounds are irregular with controlled ventricular response. She has diminished entry bilaterally with bibasilar crackles. She has trace to 1+ peripheral edema bilaterally. Problems: 1. Acute on chronic hypoxic and hypercapnic respiratory failure. 2. Acute pulmonary edema likely secondary to volume overload from prior medication compliance. 3. Chronic diastolic dysfunction. 4. Atrial fibrillation 5. Pulmonary hypertension, chronic obstructive pulmonary disease, interstitial lung disease, previous history of lung cancer 6. Chronic paraplegia. 7.Recent MRI imaging had shown progression of osteomyelitis. 8. Coronary artery disease. Plan: Continue diuresis with Lasix today. Please ensure daily weight is monitored accurately. We will consider transitioning to oral diuretics tomorrow if she remains clinically stable. 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 Patient was found to have thyroiditis in April. She was followed by the endocrinology service at that time. Her levothyroxine dose was adjusted at that time. her TSH is currently within normal limits. Recommend following up with her shredded filler cigar maker machine Dr. Pollard before adjusting her levothyroxine dose.
[2017-07-09 13:36] VITALS: BP 132/80
--- NOTE | 2017-07-09 13:38 | PN- Pulmonary ---
Subjective HPI/Critical Care Issues: Sleeping this am no sig issues noted so far in the emr Objective Current Medications: Current Medications Sig/Jonel Start time Last Medication Dose Route Stop Time Status Admin Acetaminophen 325 MG Q6P PRN 07/07 1515 AC PO Albuterol Sulfate 3 ML TID 07/07 2200 AC 07/09 INH 0804 Apixaban 5 MG BID 07/09 1000 AC 07/09 PO 0958 Atorvastatin Calcium 10 MG DAILY 07/08 1000 AC 07/09 PO 0958 Benzonatate 100 MG TID PRN 07/08 1111 AC 07/08 PO 1532 Budesonide/ 2 PUF BID 07/07 2200 AC 07/09 Formoterol Fumarate INH 0959 Diltiazem HCl 60 MG TID 07/07 1600 AC 07/09 PO 0957 Furosemide 60 MG 7:30 AM, & 4:30 PM 07/09 1630 AC IV Furosemide 60 MG BID 07/09 1000 CAN PO Furosemide 60 MG DAILY 07/07 1628 DC 07/08 PO 0927 Guaifenesin 600 MG Q12 PRN 07/07 1530 AC PO Insulin Aspart 0 TIDAC 07/07 1700 AC 07/09 SC 1229 Levothyroxine Sodium 0.088 MG DAILY AC 07/08 0700 AC 07/09 PO 0531 Lorazepam 0.5 MG Q8P PRN 07/08 0045 AC 07/08 PO 07/15 0044 0114 Losartan Potassium 25 MG DAILY 07/08 1000 AC 07/09 PO 0957 Methylprednisolone 40 MG Q8 07/07 2200 DC 07/08 IV 1442 Metoprolol Tartrate 25 MG BID 07/07 2200 AC 07/09 PO 0958 Oxymetazoline HCl 2 SPRAY BID 07/08 1000 DC 07/08 CHASE 07/09 0100 2205 Sodium Chloride 2 SPRAY Q4P PRN 07/08 1500 AC 07/09 CHASE 0956 Vital Signs & I&O Last 24 Hrs of Vitals and I&O: Vital Signs Date Time Temp Pulse Resp B/P B/P Pulse O2 O2 Flow FiO2 Mean Ox Delivery Rate 07/09 1336 97.6 86 20 132/80 92 Room Air 07/09 0858 83 145/80 07/09 0957 83 145/80 07/09 0857 83 145/80 07/09 0809 94 Room Air 07/09 0555 97.6 86 20 150/66 92 07/09 0000 Venti Mask 07/08 2205 78 110/50 07/08 2204 78 110/50 07/08 2150 97.6 78 20 110/50 90 Room Air 07/08 1645 90 Room Air 07/08 1636 80 128/82 07/08 1429 97.9 89 20 140/70 94 Room Air Intake & Output 07/09 1600 07/09 0800 07/09 0000 Intake Total 240 240 Output Total Balance 240 240 Intake, Oral 240 240 Number 1 Bowel Movements Patient 160 lb 162 lb Weight Weight Bed scale Bed scale Measurement Method Impression/Plan Impression/Plan Impression/Plan: CT chest IMPRESSION: 1. Small bilateral pleural effusions. The appearance of the lungs is most consistent with pulmonary edema. Underlying chronic changes also present, with prior right upper lobectomy as well. 2. No acute findings in the abdomen or pelvis. Colonic diverticulosis without diverticulitis. No inflammatory changes. 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 now presumed cured, hypertension, paroxysmal atrial fibrillation was on amiodarone (which has been stopped due to presumed toxicity before, however pt was not converted to sinus rhythm with this )and anticoagulation, previous tachycardia-induced acute pulmonary edema, drug-eluting stent to the RCA in May 2014, paraplegia, nosebleeds, chronic anemia with previous negative GI workup, recurrent bronchitis with mild interstitial lung disease, moderate obstructive pulmonary disease as well now comes in with * Resolved Acute hypoxic and hypercarbic resp failure due to acute pulm edema due to afib/ diastolic chf * History of recurrent rapid afib with shortness of breath with tachy cardia induced pulm edema, in the past * Mild effusion due to chf * Epistaxis with previous history of recurrent epistaxis with anemia * History of Recent UTI / * Sig COPD and ILD with wheezing due to pulm edema * Previous PCI with stent, * 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 * Pulmonary hypertension multifactorial * Chronic small airway disease, mild ILD on top of her mod COPD * Chronic paraplegia * Platypnea with no evidence of any shunt with previous work up for ASD or any shunt physiology neg, and no evidence of decompensated liver disease (is not short of breath while she sits in her wheel chair but cannot sit up in bed) * Chronic stable ischemic heart disease with stent as noted * Previous lung ca with no sig recurrence REC Cont current meds IV lasix per cardio Ipratropium nebs atc q6 prn Saline nasal spray to both nostril Hold systemic steroids Hold further abx Keep sat at 90 percent and dc oxygen during the day if her sat stays more than 90 and pt to use oxygen at hs with humidification Will follow
--- NOTE | 2017-07-09 19:08 | Cons- Gastroenterology ---
General Information and HPI Consulting Request Date of Consult: 07/09/17 Requested By: Iona Miller MD Reason for Consult: Melena Source of Information: patient, old records History of Present Illness: The patient had a large nosebleed yesterday, followed several hours later by 1 episode of black loose stool. There has been no bowel movement since that time. The patient has history of constipation, with defecation every few days, and with small bowel movements, up until this event. She has no significant heartburn or dyspepsia. She does have chronic abdominal bloating/distention. She denies nausea or vomiting. Allergies/Medications Allergies: Coded Allergies: amlodipine (Severe, C/P 05/27/16) codeine (Severe, C/P 05/27/16) morphine (Severe, C/P 05/27/16) omeprazole (Severe, C/P 05/27/16) Home Med List: Amoxicillin 500 MG TABLET 1 TAB PO TID SINUSITIS Apixaban (Eliquis) 5 MG TABLET 5 MG PO BID afib . Atorvastatin Calcium 10 MG TABLET 1 TAB PO DAILY CHOLESTEROL (Reported) Budesonide/Formoterol Fumarate (Symbicort 160-4.5 Mcg Inhaler) 160 MCG-4.5 MCG/ ACTUATION HFA.AER.AD 2 PUF INH BID copd Cholecalciferol (Vitamin D3) (Vitamin D) 2,000 UNIT CAPSULE 1 CAP PO DAILY SUPPLEMENT (Reported) Diclofenac Sodium (Voltaren) 1 % GEL..GRAM. 1 GM TOP 4 TIMES/DAY Shoulder pain apply to affected area(s) Diltiazem HCl (Cardizem) 60 MG TABLET 60 MG PO TID A. fib Furosemide 20 MG TABLET 60 MG PO DAILY DIURETIC Guaifenesin (Guaifenesin ER) 600 MG TAB.ER.12H 600 MG PO Q12 PRN COUGH Levothyroxine Sodium (Synthroid) 88 MCG TABLET 1 TAB PO DAILY THYROID PROBLEMS Lorazepam (Ativan) 0.5 MG TABLET 1 TAB PO Q6-8H PRN ANXIETY (Reported) Losartan Potassium (Cozaar) 25 MG TABLET 1 TAB PO DAILY blood pressure control Metformin HCl 500 MG TABLET 1 TAB PO DAILY DM (Reported) Metoprolol Tartrate 25 MG TABLET 1 TAB PO BID HEART HEALTH Oseltamivir Phosphate (Tamiflu) 30 MG CAPSULE 30 MG PO BID FLU Current Medications: Current Medications Sig/Jonel Start time Last Medication Dose Route Stop Time Status Admin Acetaminophen 325 MG Q6P PRN 07/07 1515 AC PO Albuterol Sulfate 3 ML TID 07/07 2200 DC 07/09 INH 1353 Apixaban 5 MG BID 07/09 1000 AC 07/09 PO 0958 Atorvastatin Calcium 10 MG DAILY 07/08 1000 AC 07/09 PO 0958 Benzonatate 100 MG TID PRN 07/08 1111 AC 07/08 PO 1532 Budesonide/ 2 PUF BID 07/07 2200 AC 07/09 Formoterol Fumarate INH 0959 Diltiazem HCl 60 MG TID 07/07 1600 AC 07/09 PO 1640 Furosemide 60 MG 7:30 AM, & 4:30 PM 07/09 1630 AC 07/09 IV 1640 Furosemide 60 MG BID 07/09 1000 CAN PO Furosemide 60 MG DAILY 07/07 1628 DC 07/08 PO 0927 Guaifenesin 600 MG Q12 PRN 07/07 1530 AC PO Insulin Aspart 0 TIDAC 07/07 1700 AC 07/09 SC 1641 Ipratropium [place] 2.5 ML Q6P PRN 07/09 1515 AC INH Levothyroxine Sodium 0.088 MG DAILY AC 07/08 0700 AC 07/09 PO 0531 Lorazepam 0.5 MG Q8P PRN 07/08 0045 AC 07/09 PO 07/15 0044 1853 Losartan Potassium 25 MG DAILY 07/08 1000 AC 07/09 PO 0957 Metoprolol Tartrate 25 MG BID 07/07 2200 AC 07/09 PO 0958 Oxymetazoline HCl 2 SPRAY BID 07/08 1000 DC 07/08 CHASE 07/09 0100 2205 Sodium Chloride 2 SPRAY Q4P PRN 07/08 1500 AC 07/09 CHASE 0956 Past History Travel History Traveled to [place] past 21 day No Medical History Blood Transfusion Hx: Yes Neurological: dizziness, paraplegia status post spine fx/fall intention tremor EENT: epistaxis Cardiovascular: AFIB (PAF), CAD (s/p stent to RCA vs PTCA), CHF, hypertension, hyperlipidemia, myocardial infarction Respiratory: COPD, interstitial lung disease, LUNG CA RUL LOBECTOMY O2 DEPENDENT 2-3L Gastrointestinal: lactose intolerance, [id number], SIGMOID COLECTOMY 02/13 colonoscopy fair prep - tics but no polyps 02/13- egd gastritis DIVERTICULOSIS COLI Hepatic: NONE Renal: urinary incontinence, UTIs Musculoskeletal: chronic back pain (post fall), degen joint disease, BROKEN BACK 1999 UNABLE TO BEAR WEIGHT Psychiatric: anxiety Endocrine: hypothyroidism, DIABETES TYPE 2 Blood Disorders: NONE (chronic), anemia Cancer(s): lung cancer (s/p RUL lobectomy SC Ca), AdenoCa in situ- sigmoid resection 3RD MATE/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 , Age 70. FHx: stomach cancer FATHER ("some type of Ca"- not colon Ca). , Age 63. FH: cancer BROTHER FH: prostate cancer Psychosocial History Where Do You Live? Home Who Do You Live With? child, SHE LIVES WITH HER DAUGHTER Services at Home: Nursing, Oxygen Primary Language: Tuvaluan Smoking Status: Former Smoker Living Will? yes Power of Administrative Law Judge/HCP? yes Name of POA/HCP: Pt's sonConstantino Functional Ability ADLs Needs Assist: dressing, eating, toileting, bathing. Ambulation: non-ambulatory (W/C) IADLs Needs Assist: shopping, housework, finances, food prep, telephone, transportation, medication admin. Exam & Diagnostic Data Vital Signs and I&O Vital Signs Date Time Temp Pulse Resp B/P B/P Pulse O2 O2 Flow FiO2 Mean Ox Delivery Rate 07/09 1640 86 132/80 07/09 1336 97.6 86 20 132/80 92 Room Air 07/09 0858 83 145/80 07/09 0857 83 145/80 07/09 0857 83 145/80 07/09 0809 94 Room Air 07/09 0800 93 Room Air 07/09 0555 97.6 86 20 150/66 92 07/09 0000 Venti Mask 07/08 2204 78 110/50 07/09 2203 78 110/50 07/08 2150 97.6 78 20 110/50 90 Room Air Intake & Output 07/09 1600 07/09 0400 07/08 1600 07/08 0400 07/07 1600 07/07 0400 Intake Total 1200 240 970 350 0 Output Total 250 Balance 950 240 970 350 0 Intake, Oral 1200 240 970 350 0 Number 1 2 2 Bowel Movements Output, Urine 250 Patient 160 lb 149 lb 135 lb 135 lb Weight Weight Bed scale Bed scale Reported by Patient Reported by Patient Measurement Method Physical Exam: Elderly white female, no apparent distress. Normal cognition. No skin lesion. No jaundice. No scleral icterus. No adenopathy. Oropharynx normal. Left nares packed. Neck supple without mass or thyromegaly. Heart regular rhythm. Lungs with decreased breath sounds. Abdomen obese and soft, with normal bowel sounds; there is suprapubic tenderness, and no mass or palpable organomegaly. Extremities with edema. Results Pertinent Lab Results: Laboratory Tests 07/09 07/09 1250 0812 Chemistry Troponin I Cancelled Urines Urine Color (YEL,AMB,STR) YEL Urine Clarity (CLEAR) CLDY H Urine pH (5.0 - 8.0) 6.0 Ur Specific [place] (1.001 - 1.035) 1.015 Urine Protein (NEG,<30 MG/DL) NEG Urine Ketones (NEG) NEG Urine Nitrite (NEG) NEG Urine Bilirubin (NEG) NEG Urine Urobilinogen (0.1 - 1.0 EU/dl) 0.2 Ur Leukocyte Esterase (NEG) MOD H Ur Microscopic SEDIMENT EXAMINED Urine RBC (0 - 5 /HPF) 1-3 Urine WBC (0 - 2 /HPF) > 75 H Ur Epithelial Cells (NONE,FEW) MOD H Micro UA Comment BUDDING YEAST H Urine Hemoglobin (NEG) MOD H Urine Glucose (N MG/DL) NEG 07/09 07/08 0708 1230 Chemistry Sodium (137 - 145 mmol/L) 136 L Potassium (3.5 - 5.1 mmol/L) 4.1 Chloride (98 - 107 mmol/L) 92 L Carbon Dioxide (22 - 30 mmol/L) 32 H Anion Gap (5 - 16) 12 BUN (7 - 17 mg/dL) 33 H Creatinine (0.5 - 1.0 mg/dL) 0.9 Estimated GFR (>60 ml/min) > 60 BUN/Creatinine Ratio (7 - 25 %) 36.7 H Magnesium (1.6 - 2.3 mg/dL) 1.7 Troponin I (< 0.11 ng/ml) < 0.01 Hematology CBC w Diff NO MAN DIFF REQ NO MAN DIFF REQ WBC (4.8 - 10.8 /CUMM) 9.3 7.3 RBC (4.20 - 5.40 /CUMM) 3.28 L 3.54 L Hgb (12.0 - 16.0 G/DL) 9.4 L 10.1 L Hct (37 - 47 %) 28.5 L 30.8 L MCV (81.0 - 99.0 FL) 86.7 87.0 MCH (27.0 - 31.0 PG) 28.8 28.7 MCHC (33.0 - 37.0 G/DL) 33.2 33.0 RDW (11.5 - 14.5 %) 16.6 H 16.1 H Plt Count (130 - 400 /CUMM) 381 440 H MPV (7.4 - 10.4 FL) 8.3 7.6 Gran % (42.2 - 75.2 %) 90.1 H 89.4 H Lymphocytes % (20.5 - 51.1 %) 6.8 L 8.5 L Monocytes % (1.7 - 9.3 %) 3.1 2.0 Eosinophils % (0 - 5 %) 0 0 Basophils % (0.0 - 2.0 %) 0 0.1 Absolute Granulocytes (1.4 - 6.5 /CUMM) 8.4 H 6.5 Absolute Lymphocytes (1.2 - 3.4 /CUMM) 0.6 L 0.6 L Absolute Monocytes (0.10 - 0.60 /CUMM) 0.3 0.1 Absolute Eosinophils (0.0 - 0.7 /CUMM) 0 0 Absolute Basophils (0.0 - 0.2 /CUMM) 0 0 /08 04/07 0650 1305 Chemistry Sodium (137 - 145 mmol/L) 135 L 133 L Potassium (3.5 - 5.1 mmol/L) 3.8 4.8 Chloride (98 - 107 mmol/L) 92 L 95 L Carbon Dioxide (22 - 30 mmol/L) 28 26 Anion Gap (5 - 16) 14 12 BUN (7 - 17 mg/dL) 24 H 20 H Creatinine (0.5 - 1.0 mg/dL) 0.8 0.8 Estimated GFR (>60 ml/min) > 60 > 60 BUN/Creatinine Ratio (7 - 25 %) 30.0 H 25.0 Glucose (65 - 99 mg/dL) 197 H Calcium (8.4 - 10.2 mg/dL) 9.5 Total Bilirubin (0.2 - 1.3 mg/dL) 1.2 AST (14 - 36 U/L) 23 ALT (9 - 52 U/L) 35 Alkaline Phosphatase (<127 U/L) 86 Troponin I (< 0.11 ng/ml) < 0.01 [id number] Pept (<125 pg/mL) 9980 H Total Protein (6.3 - 8.2 g/dL) 7.6 Albumin (3.5 - 5.0 g/dL) 3.7 Globulin (1.9 - 4.2 gm/dL) 3.9 Albumin/Globulin Ratio (1.1 - 2.2 %) 0.9 L TSH (0.270 - 4.200 uIU/mL) 1.470 Free T4 (0.85 - 1.93 ng/dL) 1.83 Hematology CBC w Diff NO MAN DIFF REQ NO MAN DIFF REQ WBC (4.8 - 10.8 /CUMM) 4.6 L 11.8 H RBC (4.20 - 5.40 /CUMM) 3.48 L 3.89 L Hgb (12.0 - 16.0 G/DL) 9.9 L 11.2 L Hct (37 - 47 %) 30.7 L 34.5 L MCV (81.0 - 99.0 FL) 88.1 88.9 MCH (27.0 - 31.0 PG) 28.5 28.7 MCHC (33.0 - 37.0 G/DL) 32.3 L 32.3 L RDW (11.5 - 14.5 %) 15.8 H 16.1 H Plt Count (130 - 400 /CUMM) 420 H 475 H MPV (7.4 - 10.4 FL) 8.0 7.6 Gran % (42.2 - 75.2 %) 86.2 H 71.5 Lymphocytes % (20.5 - 51.1 %) 12.6 L 22.8 Monocytes % (1.7 - 9.3 %) 1.1 L 3.3 Eosinophils % (0 - 5 %) 0 1.8 Basophils % (0.0 - 2.0 %) 0.1 0.6 Absolute Granulocytes (1.4 - 6.5 /CUMM) 3.9 8.4 H Absolute Lymphocytes (1.2 - 3.4 /CUMM) 0.6 L 2.7 Absolute Monocytes (0.10 - 0.60 /CUMM) 0 L 0.4 Absolute Eosinophils (0.0 - 0.7 /CUMM) 0 0.2 Absolute Basophils (0.0 - 0.2 /CUMM) 0 0.1 Assessment/Plan Assessment/Recommendations: Single episode of melena following epistaxis, likely secondary to swallowing blood. At this time there is no reason to suspect a concurrent upper GI bleed. Vital signs have been stable, and hematocrit as well. The patient remains anticoagulated. History of constipation, and abdominal bloating. Recommendations * Continue solid diet * Check CBC daily * Defer endoscopy at this time * Bowel regimen such as MiraLAX daily Thank you very much for this consultation. I will not follow the patient on a regular basis. Please call or reconsult GI with evidence of recurrent bleeding, such as melena, hematochezia, hematemesis. Consult Acknowledgment - Thank you for your consult request.
--- NOTE | 2017-07-09 22:03 | Cons- Endocrinology ---
General Information and HPI Consulting Request Date of Consult: 07/09/17 Requested By: medical team Reason for Consult: evaluation and managment of hypothyroidism Source of Information: patient, family, old records Exam Limitations: no limitations History of Present Illness: 81-year-old female with Hx of CAD status post NC stent placement, paroxysmal A. fib on anticoagulation, diabetes type 2, COPD on 2 L oxygen at home, ILD, lung carcinoma status post right upper lobe resection, colon cancer status post sigmoid resection and Gem's thyroiditis / hypothyroidism,was admitted for worsening SOB. She was put on Solumedrol 125 mg in ER and then Solumedrol 40 mg iv every 8 hours which was discontinued on 07/08/2017. She was on Levothyroxine 88 mcg daily prior to admission. In hospital, repeat TFT showed TSH 1.47, free T4 1.83 and TT3 0.80. She was on metfomin prior to admission. Now she is on Novolog coverage. Her FSGs were 193, 180 and 185. Allergies/Medications Allergies: Coded Allergies: amlodipine (Severe, C/P 05/27/16) codeine (Severe, C/P 05/27/16) morphine (Severe, C/P 05/27/16) omeprazole (Severe, C/P 05/27/16) Home Med List: Amoxicillin 500 MG TABLET 1 TAB PO TID SINUSITIS Apixaban (Eliquis) 5 MG TABLET 5 MG PO BID afib . Atorvastatin Calcium 10 MG TABLET 1 TAB PO DAILY CHOLESTEROL (Reported) Budesonide/Formoterol Fumarate (Symbicort 160-4.5 Mcg Inhaler) 160 MCG-4.5 MCG/ ACTUATION HFA.AER.AD 2 PUF INH BID copd Cholecalciferol (Vitamin D3) (Vitamin D) 2,000 UNIT CAPSULE 1 CAP PO DAILY SUPPLEMENT (Reported) Diclofenac Sodium (Voltaren) 1 % GEL..GRAM. 1 GM TOP 4 TIMES/DAY Shoulder pain apply to affected area(s) Diltiazem HCl (Cardizem) 60 MG TABLET 60 MG PO TID A. fib Furosemide 20 MG TABLET 60 MG PO DAILY DIURETIC Guaifenesin (Guaifenesin ER) 600 MG TAB.ER.12H 600 MG PO Q12 PRN COUGH Levothyroxine Sodium (Synthroid) 88 MCG TABLET 1 TAB PO DAILY THYROID PROBLEMS Lorazepam (Ativan) 0.5 MG TABLET 1 TAB PO Q6-8H PRN ANXIETY (Reported) Losartan Potassium (Cozaar) 25 MG TABLET 1 TAB PO DAILY blood pressure control Metformin HCl 500 MG TABLET 1 TAB PO DAILY DM (Reported) Metoprolol Tartrate 25 MG TABLET 1 TAB PO BID HEART HEALTH Oseltamivir Phosphate (Tamiflu) 30 MG CAPSULE 30 MG PO BID FLU Review of Systems Review of Systems Constitutional: Reports: see HPI. Cardiovascular: Denies: chest pain. Respiratory: Reports: short of breath. GI: Denies: abdominal pain. Hematologic/Endocrine: Denies: polyuria, polydipsia. Past History Travel History Traveled to [place] past 21 day No Medical History Blood Transfusion Hx: Yes Neurological: dizziness, paraplegia status post spine fx/fall intention tremor EENT: epistaxis Cardiovascular: AFIB (PAF), CAD (s/p stent to RCA vs PTCA), CHF, hypertension, hyperlipidemia, myocardial infarction Respiratory: COPD, interstitial lung disease, LUNG CA RUL LOBECTOMY O2 DEPENDENT 2-3L Gastrointestinal: lactose intolerance, [id number], SIGMOID COLECTOMY 02/13 colonoscopy fair prep - tics but no polyps 02/13- egd gastritis DIVERTICULOSIS COLI Hepatic: NONE Renal: urinary incontinence, UTIs Musculoskeletal: chronic back pain (post fall), degen joint disease, BROKEN BACK 1999 UNABLE TO BEAR WEIGHT Psychiatric: anxiety Endocrine: hypothyroidism, DIABETES TYPE 2 Blood Disorders: NONE (chronic), anemia Cancer(s): lung cancer (s/p RUL lobectomy [place] Ca), AdenoCa in situ- sigmoid resection MEDICAL LAB SPECIALIST/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 , Age 70. FHx: stomach cancer FATHER ("some type of Ca"- not colon Ca). , Age 63. FH: cancer BROTHER FH: prostate cancer Psychosocial History Where Do You Live? Home Who Do You Live With? child, SHE LIVES WITH HER DAUGHTER Services at Home: Nursing, Oxygen Primary Language: Luxembourgish Smoking Status: Former Smoker Living Will? yes Power of Materials Recycler/HCP? yes Name of POA/HCP: Pt's sonConstantino Functional Ability ADLs Needs Assist: dressing, eating, toileting, bathing. Ambulation: non-ambulatory (W/C) IADLs Needs Assist: shopping, housework, finances, food prep, telephone, transportation, medication admin. Exam & Diagnostic Data Last 24 Hrs of Vital Signs/I&O Vital Signs Date Time Temp Pulse Resp B/P B/P Pulse O2 O2 Flow FiO2 Mean Ox Delivery Rate 07/090 96 Room Air 07/09 1640 86 132/80 07/09 1336 97.6 86 20 132/80 92 Room Air 07/09 0958 83 145/80 07/09 0857 83 145/80 07/09 0957 83 145/80 07/09 0809 94 Room Air 07/09 0800 93 Room Air 07/09 0555 97.6 86 20 150/66 92 07/09 0000 Venti Mask 07/08 2205 78 110/50 07/08 2204 78 110/50 Intake & Output 07/09 1600 07/09 0800 07/09 0000 Intake Total 960 240 240 Output Total 250 Balance 710 240 240 Intake, Oral 960 240 240 Number 1 Bowel Movements Output, Urine 250 Patient 160 lb 162 lb Weight Weight Bed scale Bed scale Measurement Method Assessment/Plan Assessment/Plan 81-year-old female with Hx of CAD status post NC stent placement, paroxysmal A. fib on anticoagulation, diabetes type 2, COPD on 2 L oxygen at home, ILD, lung carcinoma status post right upper lobe resection, colon cancer status post sigmoid resection and Gem's thyroiditis / hypothyroidism,was admitted for worsening SOB. She was on Levothyroxine 88 mcg daily prior to admission. Her repeat TFT is in the normal range. I will ask her to continue taking the current Levothyroxine 88 mcg daily. I have touched base with patient's daughter. With regards to DM, as her glucose level has been stable, she will coontinue the current Novolog coverage for now. [email or web address] follow. Consult Acknowledgment - Thank you for your consult request.
[2017-07-09 22:07] VITALS: BP 124/66
[2017-07-10 07:11] VITALS: BP 126/68
--- NOTE | 2017-07-10 07:20 | PN- Housestaff ---
See Addendum Subjective Follow-up For: Acute hypoxic failure likely secondary to CHF exacerbation Subjective: The patient has been seen and examined. She was lying flat in her bed. Reports improvement in her symptoms but continues to report weakness. -Overnight patient desaturated to 88% and was put on oxygen, during the day she required oxygen very rarely most of her time her oxygen saturations were above 90%. -Currently she is being diuresed with IV Lasix mg twice a day, her insulin without are difficult to monitor because patient is incontinent otherwise patient reports improvement in her symptoms. Weight today is 161 pounds -WBC count elevated however patient is afebrile, H/H and platelet count stable. -UA positive for bacteria and moderate leukoesterase -Hyponatremia resolved sodium 138 potassium 3.7, BUN 36 creatinine 1.0 Review of Systems Constitutional: Reports: see HPI. Objective Last 24 Hrs of Vital Signs/I&O Vital Signs Date Time Temp Pulse Resp B/P B/P Pulse O2 O2 Flow FiO2 Mean Ox Delivery Rate 07/10 0825 93 Room Air 07/10 0711 97.6 84 20 126/68 92 07/09 2238 88 124/66 07/09 2238 88 124/66 07/09 2207 97.6 88 20 124/66 88 Room Air 07/09 1930 96 Room Air 07/09 1640 86 132/80 07/09 1336 97.6 86 20 132/80 92 Room Air 07/09 0958 83 145/80 07/09 0957 83 145/80 07/09 0957 83 145/80 Intake & Output 07/10 1600 07/10 0800 07/10 0000 Intake Total 480 720 Output Total Balance 480 720 Intake, Oral 480 720 Number 0 Bowel Movements Patient 161 lb Weight Physical Exam General Appearance: Alert, Oriented X3, Cooperative Cardiovascular: irregular Lungs: Clear to Auscultation, anterior murray Abdomen: Soft Neurological: Normal Speech Current Medications: Current Medications Sig/Jonel Start time Last Medication Dose Route Stop Time Status Admin Acetaminophen 325 MG Q6P PRN 07/07 1515 AC PO Albuterol Sulfate 3 ML TID 07/09 2200 AC 07/10 INH 0824 Albuterol Sulfate 3 ML TID 07/07 2200 DC 07/09 INH 1353 Apixaban 5 MG BID 07/09 1000 AC 07/09 PO 2237 Atorvastatin Calcium 10 MG DAILY 07/08 1000 AC 07/09 PO 0958 Benzonatate 100 MG TID PRN 07/08 1111 AC 07/08 PO 1532 Budesonide/ 2 PUF BID 07/07 2200 AC 07/09 Formoterol Fumarate INH 0959 Diclofenac Sodium 1 JC ONCE ONE 07/09 2130 DC 07/09 TOP 07/09 2130 2236 Diltiazem HCl 60 MG TID 07/07 1600 AC 07/09 PO 2238 Furosemide 60 MG 7:30 AM, & 4:30 PM 07/09 1630 AC 07/10 IV 0819 Guaifenesin 600 MG Q12 PRN 07/07 1530 AC PO Insulin Aspart 0 TIDAC 07/07 1700 AC 07/09 SC 1641 Ipratropium [place] 2.5 ML Q6P PRN 07/09 1515 AC INH Levothyroxine Sodium 0.088 MG DAILY AC 07/08 0700 AC 07/10 PO 0438 Lorazepam 0.5 MG Q8P PRN 07/08 0045 AC 07/09 PO 07/15 0044 1853 Losartan Potassium 25 MG DAILY 07/08 1000 AC 07/09 PO 0957 Metoprolol Tartrate 25 MG BID 07/07 2200 AC 07/09 PO 2238 Sodium Chloride 2 SPRAY Q4P PRN 07/08 1500 AC 07/09 CHASE 0956 Last 24 Hrs of Lab/Twan Results Last 24 Hrs of Labs/Mics: Laboratory Tests 07/10/17 0705: Anion Gap 12, Estimated GFR 53 L, BUN/Creatinine Ratio 36.0 H, CBC w Diff NO MAN DIFF REQ, RBC 3.41 L, MCV 87.2, MCH 29.0, MCHC 33.3, RDW 16.3 H, MPV 7.9, Gran % 79.2 H, Lymphocytes % 14.0 L, Monocytes % 6.7, Eosinophils % 0.1, Basophils % 0, Absolute Granulocytes 9.2 H, Absolute Lymphocytes 1.6, Absolute Monocytes 0.8 H, Absolute Eosinophils 0, Absolute Basophils 0 07/09/17 1250: Urine Color YEL, Urine Clarity CLDY H, Urine pH 6.0, Ur Specific [place] 1.015, Urine Protein NEG, Urine Ketones NEG, Urine Nitrite NEG, Urine Bilirubin NEG, Urine Urobilinogen 0.2, Ur Leukocyte Esterase MOD H, Ur Microscopic SEDIMENT EXAMINED, Urine RBC 1-3, Urine WBC > 75 H, Ur Epithelial Cells MOD H, Micro UA Comment [place] H, Urine Hemoglobin MOD H, Urine Glucose NEG Microbiology 07/09 1250 URINE ROUT: Urine Culture - RES Assessment/Plan Assessment: This is a 81-year-old lady with multiple comorbidities including CAD status post [place] stent placement,HFPrEF, paroxysmal A. fib on anticoagulation, diabetes COPD on 2 L home oxygen, ILD, lung carcinoma status post right upper lobe resection, history of colon cancer status post sigmoid resection, Gem's thyroiditis presents to the ER with a chief complaint of worsening shortness of breath. Patient had 3 admissions in April hypoxic respiratory failure. On the last admission she was treated for influenza and UTI. Patient received ceftriaxone and azithromycin in the ED Assessment Acute hypoxic respiratory failure Chronic diastolic dysfunction. Paroxysmal Atrial fibrillation Heart failure with preserved ejection fraction( 2017 EF60%, [facility]) Gem's thyroiditis Interstitial lung disease Lung cancer status post right upper lobe resection Diabetes mellitus Epistaxis Chronic paraplegia History of urinary incontinence and UTIs Plan #Acute hypoxic respiratory failure Appears more secondary to her CHF exacerbation rather than COPD and steroids was given in the ED because patient was wheezing on presentation. CT chest positive for pulmonary congestion. She also received 1 dose of ceftriaxone and azithromycin for presumed pneumonia in ED however CT is negative for infiltrate and-Urine strep and Legionella antigen, Flu test has been negative -C nebs [id number] -Keep oxygen saturations above 92% -Start by mouth Lasix today #Atrial fibrillation -Continue home meds Cardizem -Eliquis on hold #Epistaxis Likely secondary to chronic oxygen use, patient is also on anticoagulation for atrial fibrillation -informed by nurse continues to bleed from nostril despite rhino rocket -Might require cautery -Urgent call back consult from ENT placed by reza #Guaiac-positive stool It was reported by nurse that patient had guaiac positive stool 07/08 -Single episode of melena following epistaxis, likely secondary to swallowing blood. -Continue to monitor, GI consulted, no endoscopy required at this time #Hx of DM 3 times a day Accu-Cheks. NovoLog sliding scale. Hold metformin. Continue her medication #HX of Gem thyroiditis Patient is on levothyroxine 88 g. TSH is 1.5 free T4 is 1.5 -Endo consulted and we're going to continue the present dose of levothyroxine #Diabetic /DVT prophylaxis with Eliquis/DNR/DNI Problem List: 1. Acute respiratory failure with hypoxia and hypercarbia Pain Ratin Pain Location: back Pain Goal: Remain pain free Pain Plan: cbc bep Tomorrow's Labs & Rationales: prn
[2017-07-10 08:05] LABS: ABSOLUTE BASOPHIL COUNT 0 /CUMM (0.0-0.2); ABSOLUTE EOSINOPHIL COUNT 0 /CUMM (0.0-0.7); ABSOLUTE GRANULOCYTE CT 9.2 /CUMM (1.4-6.5); ABSOLUTE LYMPH COUNT 1.6 /CUMM (1.2-3.4); ABSOLUTE MONOCYTE COUNT 0.8 /CUMM (0.10-0.60); BASOPHIL % 0 % (0.0-2.0); EOSINOPHIL % 0.1 % (0-5); GRANULOCYTE % 79.2 % (42.2-75.2); HEMATOCRIT 29.7 % (37-47); MEAN CORPUSCULAR HGB CONC 33.3 G/DL (33.0-37.0); MEAN CORPUSCULAR VOLUME 87.2 FL (81.0-99.0); MEAN PLATELET VOLUME 7.9 FL (7.4-10.4); PLATELET COUNT 390 /CUMM (130-400); RBC DISTRIBUTION WIDTH 16.3 % (11.5-14.5); RED BLOOD CELL CT 3.41 /CUMM (4.20-5.40); WHITE BLOOD CELL COUNT 11.6 /CUMM (4.8-10.8)
--- NOTE | 2017-07-10 08:20 | Patient Discharge Instructions ---
Discharge Instructions General Discharge Information You were seen/treated for: heart failure exacerbation You had these procedures: Cauterization right nostril to stop the bleeding Watch for these problems: fever, SOB, chest pain Special Instructions: please follow up with your PCP after discharge please follow up with your heart doctor after discharge please follow up with your lung doctor after dischare please take lasix as directed please follow up with ENT after discharge, call [phone] to make appointment Diet Recommended Diet: Diabetic, Heart Healthy Activity Activity Self Limited: Yes Acute Coronary Syndrome Inclusion Criteria At DC or during hospital stay patient has or had the following: ACS DIAGNOSIS No Discharge Core Measures Meds if any: Prescribed or Continued at Discharge Meds if any: NOT Prescribed or Continued at Discharge Congestive Heart Failure Inclusion Criteria At DC or during hospital stay patient has or had the following: CHF DIAGNOSIS No Discharge Core Measures Meds if any: Prescribed or Continued at Discharge Meds if any: NOT Prescribed or Continued at Discharge Cerebrovascular accident Inclusion Criteria At DC or during hospital stay patient has or had the following: CVA/TIA Diagnosis No Discharge Core Measures Meds if any: Prescribed or Continued at Discharge Meds if any: NOT Prescribed or Continued at Discharge Venous thromboembolism Inclusion Criteria VTE Diagnosis No VTE Type NONE VTE Confirmed by (Test) NONE Discharge Core Measures - Per Current guidelines, there needs to be overlap - treatment for the first 5 days of Warfarin therapy. - If discharged on Warfarin prior to 5 days of - overlap therapy, the patient will need to be - assessed for post discharge needs including - *Post discharge parental anticoagulation - *Warfarin and/or parental anticoagulation education - *Follow up date to check INR post discharge At least 5 days overlap therapy as Inpatient No Meds if any: Prescribed or Continued at Discharge Note: Overlap Therapy is Warfarin and Anticoagulant Meds if any: NOT Prescribed or Continued at Discharge
--- NOTE | 2017-07-10 08:54 | Discharge Summary ---
Visit Information Visit Dates Admission Date: 07/07/17 Discharge Date: 07/12/17 Hospital Course Course Attending Physician: Iona Miller MD Primary Care Physician: Alexandria VENCES,Westley Cazares Hospital Course: This is a 81-year-old lady with multiple comorbidities including CAD status post [place] stent placement,HFPrEF, paroxysmal A. fib on anticoagulation, diabetes COPD on 2 L home oxygen, ILD, lung carcinoma status post right upper lobe resection, history of colon cancer status post sigmoid resection and Gem's thyroiditis presents to the ER with a chief complaint of worsening shortness of breath. Patient had 3 admissions in April hypoxic respiratory failure. Problem list Acute hypoxic respiratory failure Atrial fibrillation Epistaxis Guaiac-positive stool Hx of DM HX of Gem thyroiditis Hospital course: Initially on admission, the respiratory respiratory failure was thought to be multifactorial due to CHF and COPD exacerbation. Chest x-ray showed an infiltrate in the right lobe, however CT scan showed vascular congestion. She also received 1 dose of ceftriaxone and azithromycin for presumed pneumonia in ED however CT is negative for infiltrate and-Urine strep and Legionella antigen, Flu test was negative. Patient was evaluated by pulmonology and cardiology and treated with supplemental oxygen, T RC nebs, IV steroids and IV Lasix. Steroids were later discontinued since most of her symptoms were secondary to pulmonary edema and there was no significant wheezing on her exam. She was continued on home medications in the hospital. She had an episode of epistaxis and dark stools (guaiac positive ) while on the floor. Nasal packing was applied, and Eliquis was held for a day. ENT evaluated the patient and cauterized the right nostril and found septal perforation. Patient has been recommended to follow-up with ENT. Did not have any episode of epistaxis after the cauterization. GI evaluated the patient and recommended conservative management. Endoscopy was deferred as patient had no more episodes of bleed. CBC was checked daily and Eliquis was restarted. Her TFTs were normal and her regular levothyroxin dose was continued. She is being discharged at the same home dose of Lasix since she has been noncompliant with it in the past. Patient is going to be discharged home as per her wishes, he refuses short-term rehabilitation or home health services. She has been provided instructions to follow up with cardiology, ENT and her PCP as an outpatient. Patient has been instructed to do CBC on 07/16 monitoring of H/H. Patient has been provided with a prescription Diabetic /DVT prophylaxis with Eliquis/DNR/DNI Complications: -Episode of epistaxis anterior bleeding from both nostrils. Evaluated by ENT and septal perforation was found, nasal bleed was cauterized and there was no more episodes of bleeding. Patient has been instructed to follow-up with ENT after discharge -Guaiac-positive stool H&H remained stable and GI evaluate her and deferred endoscopy; it was likely secondary to swallowing of blood due to epistaxis Allergies: Coded Allergies: amlodipine (Severe, C/P 05/27/16) codeine (Severe, C/P 05/27/16) morphine (Severe, C/P 05/27/16) omeprazole (Severe, C/P 05/27/16) Disposition Summary Disposition Principal Diagnosis: Acute hypoxic respiratory failure due to CHF exacerbation Additional Diagnosis: Atrial fibrillation Epistaxis Guaiac-positive stool Hx of DM HX of Gem thyroiditis Discharge Disposition: home or self care Discharge Instructions General Discharge Information Code Status: Do Not Resucitate/Intubat Patient's Diet: diabetic diet Patient's Activity: wheelchair bound Follow-Up Instructions/Appts: please follow up with your PCP after discharge please follow up with your heart doctor after discharge Please continue to take Lasix as instructed. Please follow up with ENT after discharge Medications at Discharge Discharge Medications: Stop taking the following medications: Oseltamivir Phosphate (Tamiflu) 30 MG CAPSULE ORAL TWICE DAILY Qty = 2 Amoxicillin (Amoxicillin) 500 MG TABLET ORAL THREE TIMES DAILY Qty = 30 Continue taking these medications: Metformin HCl (Metformin HCl) 500 MG TABLET 1 Tablet ORAL DAILY Comments: Last Taken: NOT GIVEN IN HOSPITAL Time: Lorazepam (Ativan) 0.5 MG TABLET 1 Tablet ORAL Q6-8H as needed for ANXIETY Comments: Last Taken: 07/09/17 Time: 7:00 PM Cholecalciferol (Vitamin D3) (Vitamin D) 2,000 UNIT CAPSULE 1 Capsule ORAL DAILY Comments: Last Taken: NOT GIVEN IN HOSPITAL Apixaban (Eliquis) 5 MG TABLET 5 Milligram ORAL TWICE DAILY Qty = 60 Instructions: . Comments: Last Taken: 07/12/17 Time: 0900 Atorvastatin Calcium (Atorvastatin Calcium) 10 MG TABLET 1 Tablet ORAL DAILY Comments: Last Taken: 07/12/17 Time: 0900 Diltiazem HCl (Cardizem) 60 MG TABLET 60 Milligram ORAL THREE TIMES DAILY Qty = 120 Comments: Last Taken: 07/12/17 Time: 0900 Budesonide/Formoterol Fumarate (Symbicort 160-4.5 Mcg Inhaler) 160 MCG-4.5 MCG/ ACTUATION HFA.AER.AD 2 Puff Inhale through mouth TWICE DAILY Qty = 1 Comments: Last Taken: 07/12/17 Time: 0900 Diclofenac Sodium (Voltaren) 1 % GEL..GRAM. 1 Gram On the skin 4 TIMES A DAY Qty = 1 Instructions: apply to affected area(s) Comments: Last Taken:NOT GIVEN IN HOSPITAL Levothyroxine Sodium (Synthroid) 88 MCG TABLET 1 Tablet ORAL DAILY Qty = 30 Comments: Last Taken: 07/12/17 Time: 0630 Losartan Potassium (Cozaar) 25 MG TABLET 1 Tablet ORAL DAILY Qty = 30 Comments: Last Taken: 07/12/17 Time: 0900 Metoprolol Tartrate (Metoprolol Tartrate) 25 MG TABLET 1 Tablet ORAL TWICE DAILY Qty = 60 Comments: Last Taken: 07/12/17 Time: 0900 Furosemide (Furosemide) 20 MG TABLET 60 Milligram ORAL DAILY Qty = 30 Comments: Last Taken: 07/12/17 Time: 0900 Guaifenesin (Guaifenesin ER) 600 MG TAB.ER.12H 600 Milligram ORAL EVERY 12 HOURS as needed for COUGH Qty = 14 Comments: Last Taken: NOT GIVEN IN HOSPITAL Copies To: Maik VENCES,Lio Cline; Erica VENCES,Guevara Krishnamurthy; Dalton VENCES,Debbie; Lori VENCES,Ole Attending MD Review Statement Documenting Attending: Iona Miller MD Other Findings: Discharged in stable condition.
--- NOTE | 2017-07-10 12:55 | PN- Diabetes ---
Assessment/Plan Diabetes Assessment: 81-year-old female with Hx of CAD status post [place] stent placement, paroxysmal A. fib on anticoagulation, diabetes type 2, COPD on 2 L oxygen at home, ILD, lung carcinoma status post right upper lobe resection, colon cancer status post sigmoid resection and Gem's thyroiditis / hypothyroidism,was admitted for worsening SOB. She was on Levothyroxine 88 mcg daily prior to admission. Her repeat TFT is in the normal range. I have touched base with patient's daughter. She will continue taking the current Levothyroxine 88 mcg daily for now.. With regards to DM, she is on Novolog coverage and her FSGs were 193, 180, 185 and 139. At home, she was on metformin 500 mg daily. Plan: continue the current treatment for thyroid and DM; detail see above. Subjective Subjective: She feels okay. Objective Last 24 Hrs of Vital Signs/I&O Vital Signs Date Time Temp Pulse Resp B/P B/P Pulse O2 O2 Flow FiO2 Mean Ox Delivery Rate 07/10 1044 72 164/72 07/10 1044 72 164/72 07/10 1043 72 164/72 07/10 0825 93 Room Air 07/10 0800 Room Air 07/10 0711 97.6 84 20 126/68 92 07/09 2238 88 124/66 07/09 2238 88 124/66 07/09 2207 97.6 88 20 124/66 88 Room Air 07/09 1930 96 Room Air 07/09 1640 86 132/80 07/09 1336 97.6 86 20 132/80 92 Room Air Intake & Output 07/10 1600 07/10 0800 07/10 0000 Intake Total 480 720 Output Total Balance 480 720 Intake, Oral 480 720 Number 0 Bowel Movements Patient 161 lb Weight Findings Pertinent Lab/Twan Results: Laboratory Tests 07/10 0705 Chemistry Sodium (137 - 145 mmol/L) 138 Potassium (3.5 - 5.1 mmol/L) 3.7 Chloride (98 - 107 mmol/L) 91 L Carbon Dioxide (22 - 30 mmol/L) 35 H Anion Gap (5 - 16) 12 BUN (7 - 17 mg/dL) 36 H Creatinine (0.5 - 1.0 mg/dL) 1.0 Estimated GFR (>60 ml/min) 53 L BUN/Creatinine Ratio (7 - 25 %) 36.0 H Hematology CBC w Diff NO MAN DIFF REQ WBC (4.8 - 10.8 /CUMM) 11.6 H RBC (4.20 - 5.40 /CUMM) 3.41 L Hgb (12.0 - 16.0 G/DL) 9.9 L Hct (37 - 47 %) 29.7 L MCV (81.0 - 99.0 FL) 87.2 MCH (27.0 - 31.0 PG) 29.0 MCHC (33.0 - 37.0 G/DL) 33.3 RDW (11.5 - 14.5 %) 16.3 H Plt Count (130 - 400 /CUMM) 390 MPV (7.4 - 10.4 FL) 7.9 Gran % (42.2 - 75.2 %) 79.2 H Lymphocytes % (20.5 - 51.1 %) 14.0 L Monocytes % (1.7 - 9.3 %) 6.7 Eosinophils % (0 - 5 %) 0.1 Basophils % (0.0 - 2.0 %) 0 Absolute Granulocytes (1.4 - 6.5 /CUMM) 9.2 H Absolute Lymphocytes (1.2 - 3.4 /CUMM) 1.6 Absolute Monocytes (0.10 - 0.60 /CUMM) 0.8 H Absolute Eosinophils (0.0 - 0.7 /CUMM) 0 Absolute Basophils (0.0 - 0.2 /CUMM) 0
[2017-07-10 14:04] VITALS: BP 130/67
--- NOTE | 2017-07-10 17:18 | PN- Cardiology ---
Subjective Subjective: * Patient has active bleeding through the right nare. No shortness of breath or chest discomfort. * atrial fibrillation Objective Vital Signs and I&Os Vital Signs Date Time Temp Pulse Resp B/P B/P Pulse O2 O2 Flow FiO2 Mean Ox Delivery Rate 07/10 1627 98 18 124/64 07/10 1404 97.5 95 20 130/67 93 Room Air 07/10 1044 72 164/72 07/10 1044 72 164/72 07/10 1043 72 164/72 07/10 0825 93 Room Air 07/10 0800 Room Air 07/10 0711 97.6 84 20 126/68 92 07/09 2238 88 124/66 07/09 2238 88 124/66 07/09 2207 97.6 88 20 12466 88 Room Air 07/09 1930 96 Room Air Intake & Output 07/10 1600 07/10 0800 07/10 0000 07/09 1600 07/09 0800 07/09 0000 Intake Total 1200 480 720 960 240 240 Output Total 250 Balance 1200 480 720 710 240 240 Intake, Oral 1200 480 720 960 240 240 Number 0 0 1 Bowel Movements Output, Urine 250 Patient 161 lb 160 lb 162 lb Weight Weight Bed scale Bed scale Measurement Method Physical Exam: General: WD/overweight female in mild distress; alert and oriented x 3 HEENT: epistaxis noted Neck: no JVD, no carotid bruit Heart: irregularly irregular Lungs: no crackles Extremities: no edema Neuro: bilateral lower extremity paralysis Assessment/Plan Assessment/Plan * This patient has no current shortness of breath. There may be an element of decompensated CHF but the patient has multiple reasons for shortness of breath including COPD, interstitial lung disease and a right lobectomy for lung cancer. I think it is reasonable to continue Lasix at 60mg daily. Obtain a chest X-ray tomorrow. * Atrial fibrillation. This is a chronic condition. Continue Metoprolol and Cardizem for rate control. The patient will need to have her Eliquis held in the setting of an active bleed. Obtain an ENT evaluation. Continue telemetry? No
[2017-07-10 18:47] LABS: ABSOLUTE BASOPHIL COUNT 0 /CUMM (0.0-0.2); ABSOLUTE EOSINOPHIL COUNT 0.1 /CUMM (0.0-0.7); ABSOLUTE GRANULOCYTE CT 8.8 /CUMM (1.4-6.5); ABSOLUTE LYMPH COUNT 1.6 /CUMM (1.2-3.4); ABSOLUTE MONOCYTE COUNT 0.9 /CUMM (0.10-0.60); BASOPHIL % 0.3 % (0.0-2.0); GRANULOCYTE % 76.7 % (42.2-75.2); HEMATOCRIT 29.6 % (37-47); MEAN CORPUSCULAR HGB 28.7 PG (27.0-31.0); MEAN CORPUSCULAR HGB CONC 32.7 G/DL (33.0-37.0); MEAN CORPUSCULAR VOLUME 87.6 FL (81.0-99.0); MEAN PLATELET VOLUME 8.1 FL (7.4-10.4); PLATELET COUNT 412 /CUMM (130-400); RBC DISTRIBUTION WIDTH 16.1 % (11.5-14.5); RED BLOOD CELL CT 3.38 /CUMM (4.20-5.40); WHITE BLOOD CELL COUNT 11.5 /CUMM (4.8-10.8)
--- NOTE | 2017-07-10 19:05 | PN- Pulmonary ---
Subjective HPI/Critical Care Issues: Sleeping still has mild oozing from the nostril Objective Current Medications: Current Medications Sig/Jonel Start time Last Medication Dose Route Stop Time Status Admin Acetaminophen 325 MG Q6P PRN 07/07 1515 AC PO Albuterol Sulfate 3 ML TID 07/09 2200 AC 07/10 INH 0824 Apixaban 5 MG BID 07/09 1000 DC 07/10 PO 1044 Atorvastatin Calcium 10 MG DAILY 07/08 1000 AC 07/10 PO 1044 Benzonatate 100 MG TID PRN 07/08 1111 AC 07/08 PO 1532 Budesonide/ 2 PUF BID 07/07 2200 AC 07/10 Formoterol Fumarate INH 1047 Diclofenac Sodium 1 JC ONCE ONE 07/09 2130 DC 07/09 TOP 07/09 2131 2236 Diltiazem HCl 60 MG TID 07/07 1600 AC 07/10 PO 1627 Furosemide 60 MG DAILY 07/11 1000 AC PO Furosemide 60 MG 7:30 AM, & 4:30 PM 07/09 1630 DC 07/10 IV 0819 Guaifenesin 600 MG Q12 PRN 07/07 1530 AC PO Insulin Aspart 0 TIDAC 07/07 1700 AC 07/09 SC 1641 Ipratropium [place] 2.5 ML Q6P PRN 07/09 1515 AC INH Levothyroxine Sodium 0.088 MG DAILY AC 07/08 0700 AC 07/10 PO 0438 Lorazepam 0.5 MG Q8P PRN 07/08 0045 AC 07/09 PO 07/15 0044 1853 Losartan Potassium 25 MG DAILY 07/08 1000 AC 07/10 PO 1044 Metoprolol Tartrate 25 MG BID 07/07 2200 AC 07/10 PO 1044 Potassium Chloride 40 MEQ ONCE ONE 07/10 1030 DC 07/10 PO 07/10 1031 1240 Sodium Chloride 2 SPRAY Q4P PRN 07/08 1500 AC 07/10 CHASE 1042 Vital Signs & I&O Last 24 Hrs of Vitals and I&O: Vital Signs Date Time Temp Pulse Resp B/P B/P Pulse O2 O2 Flow FiO2 Mean Ox Delivery Rate 07/10 1627 98 18 124/64 07/10 1404 97.5 95 20 130/67 93 Room Air 07/10 1044 72 164/72 07/10 1044 72 164/72 04/10 1043 72 164/72 07/10 0825 93 Room Air 07/10 0800 Room Air 07/10 0711 97.6 84 20 126/68 92 07/09 2238 88 124/66 07/09 2238 88 124/66 07/09 2207 97.6 88 20 124/66 88 Room Air 07/09 1930 96 Room Air Intake & Output 07/10 1600 07/10 0800 04 0000 Intake Total 1200 480 720 Output Total Balance 1200 480 720 Intake, Oral 1200 480 720 Number 0 0 Bowel Movements Patient 161 lb Weight Impression/Plan Impression/Plan Impression/Plan: CT chest IMPRESSION: 1. Small bilateral pleural effusions. The appearance of the lungs is most consistent with pulmonary edema. Underlying chronic changes also present, with prior right upper lobectomy as well. 2. No acute findings in the abdomen or pelvis. Colonic diverticulosis without diverticulitis. No inflammatory changes. 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 now presumed cured, hypertension, paroxysmal atrial fibrillation was on amiodarone (which has been stopped due to presumed toxicity before, however pt was not converted to sinus rhythm with this )and anticoagulation, previous tachycardia-induced acute pulmonary edema, drug-eluting stent to the RCA in May 2014, paraplegia, nosebleeds, chronic anemia with previous negative GI workup, recurrent bronchitis with mild interstitial lung disease, moderate obstructive pulmonary disease as well now comes in with * Resolved Acute hypoxic and hypercarbic resp failure due to acute pulm edema due to afib/ diastolic chf * History of recurrent rapid afib with shortness of breath with tachy cardia induced pulm edema, in the past * Mild effusion due to chf better * Epistaxis with previous history of recurrent epistaxis with anemia, stable * History of Recent UTI / * Sig COPD and ILD with wheezing due to pulm edema * Previous PCI with stent, * 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 * Pulmonary hypertension multifactorial * Chronic small airway disease, mild ILD on top of her mod COPD * Chronic paraplegia * Platypnea with no evidence of any shunt with previous work up for ASD or any shunt physiology neg, and no evidence of decompensated liver disease (is not short of breath while she sits in her wheel chair but cannot sit up in bed) * Chronic stable ischemic heart disease with stent as noted * Previous lung ca with no sig recurrence REC Cont current meds lasix per cardio Ipratropium nebs atc q6 prn Saline nasal spray to both nostril Hold systemic steroids Hold further abx Keep sat at 90 percent and dc oxygen during the day if her sat stays more than 90 and pt to use oxygen at hs with humidification if needed Will follow
[2017-07-10 22:24] VITALS: BP 120/58
[2017-07-11 06:27] VITALS: BP 124/68
--- NOTE | 2017-07-11 07:23 | PN- Housestaff ---
Angelito VENCES,Jayla 07/11/17 0722: Subjective Follow-up For: Acute hypoxic respiratory failure multifactorial Subjective: Seen and examined. Sitting up in bed having breakfast. -Nosebleed has stopped. ENT was called yesterday, they cauterized the bleeding and packed the nose -Patient is feeling much better clinically improved as well -Has been transitioned to by mouth Lasix. -However patient is refusing to be discharged home today. -Patient did have dirty UA and there was a spike of WBC count yesterday but that has normalized. Patient does not have any urinary symptoms. She has urinary incontinence at baseline. Urine culture does not show any growth so far. -Eliquis is currently on hold, will restart today -Patient to maintain oxygen saturation above 92% yesterday evening and overnight and remained on room air -wt today is 154lbs 161 yesterday ins and outs are not being monitored because patient is incontinent at baseline Review of Systems Constitutional: Reports: see HPI. Objective Last 24 Hrs of Vital Signs/I&O Vital Signs Date Time Temp Pulse Resp B/P B/P Pulse O2 O2 Flow FiO2 Mean Ox Delivery Rate 07/11 0627 97.4 108 20 124/68 97 Room Air 07/11 0000 Room Air 07/10 2234 99 120/58 07/10 2233 99 120/58 07/10 2224 98.0 99 19 120/58 93 Room Air 07/10 1627 98 18 124/64 07/10 1404 97.5 95 20 130/67 93 Room Air 07/10 1044 72 164/72 07/10 1044 72 164/72 07/10 1043 72 164/72 07/10 0825 93 Room Air 07/10 0800 Room Air Intake & Output 07/11 0800 07/11 0000 07/10 1600 Intake Total 810 1200 Output Total Balance 810 1200 Intake, IV 10 Intake, Oral 800 1200 Number 0 Bowel Movements Patient 154 lb Weight Weight Bed scale Measurement Method Physical Exam General Appearance: Oriented X3, Cooperative, No Acute Distress Cardiovascular: Normal S1, Normal S2, no crackels Lungs: Clear to Auscultation Abdomen: Soft, No Tenderness Other Physical Findings: Nose bleed stopped, packing in place Current Medications: Current Medications Sig/Jonel Start time Last Medication Dose Route Stop Time Status Admin Acetaminophen 325 MG Q6P PRN 07/07 1515 AC PO Albuterol Sulfate 3 ML TID 07/09 2200 AC 07/10 INH 2018 Apixaban 5 MG BID 07/09 1000 DC 07/10 PO 1044 Atorvastatin Calcium 10 MG DAILY 07/08 1000 AC 07/10 PO 1044 Benzonatate 100 MG TID PRN 07/08 1111 AC 07/08 PO 1532 Budesonide/ 2 PUF BID 07/07 2200 AC 07/10 Formoterol Fumarate INH 2234 Diltiazem HCl 60 MG TID 07/07 1600 AC 07/10 PO 2233 Furosemide 60 MG DAILY 07/11 1000 AC PO Furosemide 60 MG 7:30 AM, & 4:30 PM 07/09 1630 DC 07/10 IV 0819 Guaifenesin 600 MG Q12 PRN 07/07 1530 AC PO Insulin Aspart 0 TIDAC 07/07 1700 AC 07/09 SC 1641 Ipratropium [place] 2.5 ML Q6P PRN 07/09 1515 AC INH Levothyroxine Sodium 0.088 MG DAILY AC 07/08 0700 AC 07/11 PO 0538 Lorazepam 0.5 MG Q8P PRN 07/08 0045 AC 07/09 PO 07/15 0044 1853 Losartan Potassium 25 MG DAILY 07/08 1000 AC 07/10 PO 1044 Metoprolol Tartrate 25 MG BID 07/07 2200 AC 07/10 PO 2234 Potassium Chloride 40 MEQ ONCE ONE 07/10 1030 DC 07/10 PO 07/10 1031 1240 Sodium Chloride 2 SPRAY Q4P PRN 07/08 1500 AC 07/10 CHASE 1042 Assessment/Plan Assessment: This is a 81-year-old lady with multiple comorbidities including CAD status post [place] stent placement,HFPrEF, paroxysmal A. fib on anticoagulation, diabetes COPD on 2 L home oxygen, ILD, lung carcinoma status post right upper lobe resection, history of colon cancer status post sigmoid resection, Gem's thyroiditis presents to the ER with a chief complaint of worsening shortness of breath. Patient had 3 admissions in April hypoxic respiratory failure. On the last admission she was treated for influenza and UTI. Patient received ceftriaxone and azithromycin in the ED Assessment Acute hypoxic respiratory failure Chronic diastolic dysfunction. Paroxysmal Atrial fibrillation Heart failure with preserved ejection fraction( 2018 EF60%, [facility]) Gem's thyroiditis Interstitial lung disease Lung cancer status post right upper lobe resection Diabetes mellitus Epistaxis Chronic paraplegia History of urinary incontinence and UTIs Plan #Acute hypoxic respiratory failure Appears more secondary to her CHF exacerbation rather than COPD. Steroids was given in the ED because patient was wheezing on presentation. CT chest positive for pulmonary congestion. She also received 1 dose of ceftriaxone and azithromycin for presumed pneumonia in ED however CT is negative for infiltrate and-Urine strep and Legionella antigen, Flu test has been negative Patient reports improvement in shortness of breath. Of note that patient has multiple comorbidities and might alwatys be somewhat short of breath at baseline with history of CHF, COPD, ILD and history of lung resection secondary to lung carcinoma. -Ins and outs have been difficult to monitor because of incontinence or patient related today is 154 and clinically there are minimal crackles on her examination improving -TRC nebs [id number] -Keep oxygen saturations above 90%, will only use oxygen if drops below 90% -60 mg PO lasix #Atrial fibrillation -Continue home meds Cardizem and eliquis #Epistaxis Likely secondary to chronic oxygen use, patient is also on anticoagulation for atrial fibrillation. -On 07/11 patient was evaluated by ENT and cauterization was done to stop the bleeding. After that the nose was packed, it was found that pt has septal perforation -No bleeding at present -call ENT in case of bleeding -outpt f/u with ENT #Guaiac-positive stool It was reported by nurse that patient had guaiac positive stool 07/08 -Single episode of melena following epistaxis, likely secondary to swallowing blood. -Continue to monitor, GI consulted, no endoscopy required at this time #Hx of DM 3 times a day Accu-Cheks. NovoLog sliding scale. Hold metformin. Continue her medication #HX of Gem thyroiditis Patient is on levothyroxine 88 g. TSH is 1.5 free T4 is 1.5 -Endo consulted and we're going to continue the present dose of levothyroxine #Diabetic /DVT prophylaxis with Eliquis/DNR/DNI Problem List: 1. Atrial fibrillation Pain Ratin Pain Location: back Pain Goal: Pain 4 or less Pain Plan: prn Tomorrow's Labs & Rationales: angela Miller MD,Iona 07/11/17 1450: Attending MD Review Statement Attending Statement Attending MD Statement: examined this patient, discuss w/resident/PA/LAMP MECHANIC, agreed w/resident/PA/LAMP MECHANIC, discussed with family, reviewed EMR data (avail), discussed with nursing, discussed with case mgmt, amended to note Attending Assessment/Plan: Patient seen and examined. Resting comfortably unless in any acute distress. Yesterday afternoon she had significant epistaxis. She was eventually seen by the ENT service and catheterization was done. Bleeding has subsequently stopped. She is hemodynamically stable. Her hemoglobin level is stable. She denies any shortness of breath this morning. She is not requiring any oxygen supplementation during the day. On examination she appears quite comfortable. She has had significant weight loss since admission diuresis. Her peripheral edema has also improved. I did discuss with the patient and her daughter regarding the need to avoid nasal cannula and provide oxygen supplementation via facemask. Patient is in agreement with this plan. We will monitor patient overnight if her hemoglobin level remained stable and no change in her clinical status she may be discharged home tomorrow. It is noted that her BUN is trending upwards. She was on Lasix 60 mg daily at home. Daughter reports that she titrates the patient's Lasix dose at home based on her assessment of the patient's volume status. She admits that she had recently decreased the dose of the patient's Lasix as she felt she was dehydrated. I have advised the patient's daughter to follow-up with her hospitality workers prior to titrating the dose of her Lasix. Given her age and comorbidities patient will likely have to tolerate some degree of renal insufficiency in order to preserve her respiratory status as she easily develops volume overload. Patient remains clinically stable overnight she will be discharged home tomorrow.
[2017-07-11 08:27] LABS: ABSOLUTE BASOPHIL COUNT 0 /CUMM (0.0-0.2); ABSOLUTE EOSINOPHIL COUNT 0.2 /CUMM (0.0-0.7); ABSOLUTE GRANULOCYTE CT 6.4 /CUMM (1.4-6.5); ABSOLUTE LYMPH COUNT 2.2 /CUMM (1.2-3.4); ABSOLUTE MONOCYTE COUNT 0.8 /CUMM (0.10-0.60); BASOPHIL % 0.2 % (0.0-2.0); EOSINOPHIL % 1.8 % (0-5); MEAN CORPUSCULAR HGB 28.6 PG (27.0-31.0); MEAN CORPUSCULAR HGB CONC 32.6 G/DL (33.0-37.0); MEAN CORPUSCULAR VOLUME 87.7 FL (81.0-99.0); MEAN PLATELET VOLUME 8.3 FL (7.4-10.4); PLATELET COUNT 370 /CUMM (130-400); RBC DISTRIBUTION WIDTH 16.3 % (11.5-14.5); WHITE BLOOD CELL COUNT 9.6 /CUMM (4.8-10.8)
--- NOTE | 2017-07-11 13:33 | PN- Pulmonary ---
Subjective HPI/Critical Care Issues: Seen and examined. -Nosebleed has stopped. ENT was called yesterday, they cauterized the bleeding and packed the nose -Patient is feeling much better clinically improved as well -Has been transitioned to by mouth Lasix. -[place] is currently on hold -Patient to maintain oxygen saturation above 92% yesterday evening and overnight and remained on room air Review of Systems Constitutional: Reports: see HPI. Objective Current Medications: Current Medications Sig/Jonel Start time Last Medication Dose Route Stop Time Status Admin Acetaminophen 325 MG Q6P PRN 07/07 1515 AC PO Albuterol Sulfate 3 ML TID 07/09 2200 AC 07/11 INH 0822 Apixaban 5 MG BID 07/09 1000 DC 07/10 PO 1044 Atorvastatin Calcium 10 MG DAILY 07/08 1000 AC 07/11 PO 0900 Benzonatate 100 MG TID PRN 07/08 1111 AC 07/08 PO 1532 Budesonide/ 2 PUF BID 07/07 2200 AC 07/11 Formoterol Fumarate INH 0901 Diltiazem HCl 60 MG TID 07/07 1600 AC 07/11 PO 0900 Furosemide 60 MG DAILY 07/11 1000 AC 07/11 PO 0900 Guaifenesin 600 MG Q12 PRN 07/07 1530 AC PO Insulin Aspart 0 TIDAC 07/07 1700 AC 07/09 SC 1641 Ipratropium [place] 2.5 ML Q6P PRN 07/09 1515 AC INH Levothyroxine Sodium 0.088 MG DAILY AC 07/08 0700 AC 07/11 PO 0538 Lorazepam 0.5 MG Q8P PRN 07/08 0045 AC 07/09 PO 07/15 0044 1853 Losartan Potassium 25 MG DAILY 07/08 1000 AC 07/11 PO 0900 Metoprolol Tartrate 25 MG BID 07/07 2200 AC 07/11 PO 0901 Sodium Chloride 2 SPRAY Q4P PRN 07/08 1500 AC 07/10 CHASE 1042 Vital Signs & I&O Last 24 Hrs of Vitals and I&O: Vital Signs Date Time Temp Pulse Resp B/P B/P Pulse O2 O2 Flow FiO2 Mean Ox Delivery Rate 07/11 900 92 124/62 07/11 09 92 124/62 07/11 899 92 124/62 07/11 824 93 Room Air 04/11 0627 97.4 108 20 124/68 97 Room Air 07/11 0000 Room Air 07/10 2234 99 120/58 07/10 2233 99 120/58 07/10 2224 98.0 99 19 120/58 93 Room Air 07/10 1627 98 18 124/64 07/10 1404 97.5 95 20 130/67 93 Room Air Intake & Output 07/11 1600 07/11 0800 07/11 0000 Intake Total 810 Output Total Balance 810 Intake, IV 10 Intake, Oral 800 Patient 143 lb 154 lb Weight Weight Bed scale Measurement Method Laboratory Tests 07/11 07/10 0645 1758 Chemistry Sodium (137 - 145 mmol/L) 139 Potassium (3.5 - 5.1 mmol/L) 3.9 Chloride (98 - 107 mmol/L) 95 L Carbon Dioxide (22 - 30 mmol/L) 33 H Anion Gap (5 - 16) 10 BUN (7 - 17 mg/dL) 52 H Creatinine (0.5 - 1.0 mg/dL) 0.9 Estimated GFR (>60 ml/min) > 60 BUN/Creatinine Ratio (7 - 25 %) 57.8 H Hematology CBC w Diff NO MAN DIFF REQ NO MAN DIFF REQ WBC (4.8 - 10.8 /CUMM) 9.6 11.5 H RBC (4.20 - 5.40 /CUMM) 3.30 L 3.38 L Hgb (12.0 - 16.0 G/DL) 9.4 L 9.7 L Hct (37 - 47 %) 29.0 L 29.6 L MCV (81.0 - 99.0 FL) 87.7 87.6 MCH (27.0 - 31.0 PG) 28.6 28.7 MCHC (33.0 - 37.0 G/DL) 32.6 L 32.7 L RDW (11.5 - 14.5 %) 16.3 H 16.1 H Plt Count (130 - 400 /CUMM) 370 412 H MPV (7.4 - 10.4 FL) 8.3 8.1 Gran % (42.2 - 75.2 %) 67.0 76.7 H Lymphocytes % (20.5 - 51.1 %) 23.0 14.1 L Monocytes % (1.7 - 9.3 %) 8.0 7.9 Eosinophils % (0 - 5 %) 1.8 1.0 Basophils % (0.0 - 2.0 %) 0.2 0.3 Absolute Granulocytes (1.4 - 6.5 /CUMM) 6.4 8.8 H Absolute Lymphocytes (1.2 - 3.4 /CUMM) 2.2 1.6 Absolute Monocytes (0.10 - 0.60 /CUMM) 0.8 H 0.9 H Absolute Eosinophils (0.0 - 0.7 /CUMM) 0.2 0.1 Absolute Basophils (0.0 - 0.2 /CUMM) 0 0 04/10 0705 Chemistry Sodium (137 - 145 mmol/L) 138 Potassium (3.5 - 5.1 mmol/L) 3.7 Chloride (98 - 107 mmol/L) 91 L Carbon Dioxide (22 - 30 mmol/L) 35 H Anion Gap (5 - 16) 12 BUN (7 - 17 mg/dL) 36 H Creatinine (0.5 - 1.0 mg/dL) 1.0 Estimated GFR (>60 ml/min) 53 L BUN/Creatinine Ratio (7 - 25 %) 36.0 H Hematology CBC w Diff NO MAN DIFF REQ WBC (4.8 - 10.8 /CUMM) 11.6 H RBC (4.20 - 5.40 /CUMM) 3.41 L Hgb (12.0 - 16.0 G/DL) 9.9 L Hct (37 - 47 %) 29.7 L MCV (81.0 - 99.0 FL) 87.2 MCH (27.0 - 31.0 PG) 29.0 MCHC (33.0 - 37.0 G/DL) 33.3 RDW (11.5 - 14.5 %) 16.3 H Plt Count (130 - 400 /CUMM) 390 MPV (7.4 - 10.4 FL) 7.9 Gran % (42.2 - 75.2 %) 79.2 H Lymphocytes % (20.5 - 51.1 %) 14.0 L Monocytes % (1.7 - 9.3 %) 6.7 Eosinophils % (0 - 5 %) 0.1 Basophils % (0.0 - 2.0 %) 0 Absolute Granulocytes (1.4 - 6.5 /CUMM) 9.2 H Absolute Lymphocytes (1.2 - 3.4 /CUMM) 1.6 Absolute Monocytes (0.10 - 0.60 /CUMM) 0.8 H Absolute Eosinophils (0.0 - 0.7 /CUMM) 0 Absolute Basophils (0.0 - 0.2 /CUMM) 0 Microbiology Date/Time Procedure - Status Source Growth 07/09 1250 Urine Culture - COMP URINE ROUT Laboratory Tests 07/11 07/10 0645 1758 Chemistry Sodium (137 - 145 mmol/L) 139 Potassium (3.5 - 5.1 mmol/L) 3.9 Chloride (98 - 107 mmol/L) 95 L Carbon Dioxide (22 - 30 mmol/L) 33 H Anion Gap (5 - 16) 10 BUN (7 - 17 mg/dL) 52 H Creatinine (0.5 - 1.0 mg/dL) 0.9 Estimated GFR (>60 ml/min) > 60 BUN/Creatinine Ratio (7 - 25 %) 57.8 H Hematology CBC w Diff NO MAN DIFF REQ NO MAN DIFF REQ WBC (4.8 - 10.8 /CUMM) 9.6 11.5 H RBC (4.20 - 5.40 /CUMM) 3.30 L 3.38 L Hgb (12.0 - 16.0 G/DL) 9.4 L 9.7 L Hct (37 - 47 %) 29.0 L 29.6 L MCV (81.0 - 99.0 FL) 87.7 87.6 MCH (27.0 - 31.0 PG) 28.6 28.7 MCHC (33.0 - 37.0 G/DL) 32.6 L 32.7 L RDW (11.5 - 14.5 %) 16.3 H 16.1 H Plt Count (130 - 400 /CUMM) 370 412 H MPV (7.4 - 10.4 FL) 8.3 8.1 Gran % (42.2 - 75.2 %) 67.0 76.7 H Lymphocytes % (20.5 - 51.1 %) 23.0 14.1 L Monocytes % (1.7 - 9.3 %) 8.0 7.9 Eosinophils % (0 - 5 %) 1.8 1.0 Basophils % (0.0 - 2.0 %) 0.2 0.3 Absolute Granulocytes (1.4 - 6.5 /CUMM) 6.4 8.8 H Absolute Lymphocytes (1.2 - 3.4 /CUMM) 2.2 1.6 Absolute Monocytes (0.10 - 0.60 /CUMM) 0.8 H 0.9 H Absolute Eosinophils (0.0 - 0.7 /CUMM) 0.2 0.1 Absolute Basophils (0.0 - 0.2 /CUMM) 0 0 04/10 0705 Chemistry Sodium (137 - 145 mmol/L) 138 Potassium (3.5 - 5.1 mmol/L) 3.7 Chloride (98 - 107 mmol/L) 91 L Carbon Dioxide (22 - 30 mmol/L) 35 H Anion Gap (5 - 16) 12 BUN (7 - 17 mg/dL) 36 H Creatinine (0.5 - 1.0 mg/dL) 1.0 Estimated GFR (>60 ml/min) 53 L BUN/Creatinine Ratio (7 - 25 %) 36.0 H Hematology CBC w Diff NO MAN DIFF REQ WBC (4.8 - 10.8 /CUMM) 11.6 H RBC (4.20 - 5.40 /CUMM) 3.41 L Hgb (12.0 - 16.0 G/DL) 9.9 L Hct (37 - 47 %) 29.7 L MCV (81.0 - 99.0 FL) 87.2 MCH (27.0 - 31.0 PG) 29.0 MCHC (33.0 - 37.0 G/DL) 33.3 RDW (11.5 - 14.5 %) 16.3 H Plt Count (130 - 400 /CUMM) 390 MPV (7.4 - 10.4 FL) 7.9 Gran % (42.2 - 75.2 %) 79.2 H Lymphocytes % (20.5 - 51.1 %) 14.0 L Monocytes % (1.7 - 9.3 %) 6.7 Eosinophils % (0 - 5 %) 0.1 Basophils % (0.0 - 2.0 %) 0 Absolute Granulocytes (1.4 - 6.5 /CUMM) 9.2 H Absolute Lymphocytes (1.2 - 3.4 /CUMM) 1.6 Absolute Monocytes (0.10 - 0.60 /CUMM) 0.8 H Absolute Eosinophils (0.0 - 0.7 /CUMM) 0 Absolute Basophils (0.0 - 0.2 /CUMM) 0 Microbiology Date/Time Procedure - Status Source Growth 07/09 1250 Urine Culture - COMP URINE ROUT Impression/Plan Impression/Plan Impression/Plan: 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 now presumed cured, hypertension, paroxysmal atrial fibrillation was on amiodarone (which has been stopped due to presumed toxicity before, however pt was not converted to sinus rhythm with this )and anticoagulation, previous tachycardia-induced acute pulmonary edema, drug-eluting stent to the RCA in May 2014, paraplegia, nosebleeds, chronic anemia with previous negative GI workup, recurrent bronchitis with mild interstitial lung disease, moderate obstructive pulmonary disease as well now comes in with * Resolved Acute hypoxic and hypercarbic resp failure due to acute pulm edema due to afib/ diastolic chf * History of recurrent rapid afib with shortness of breath with tachy cardia induced pulm edema, in the past * Mild effusion due to chf better * Epistaxis with previous history of recurrent epistaxis with anemia, stable * History of Recent UTI / with dysurea * Sig COPD and ILD with wheezing due to pulm edema * Previous PCI with stent, * 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 * Pulmonary hypertension multifactorial * Chronic small airway disease, mild ILD on top of her mod COPD * Chronic paraplegia * Platypnea with no evidence of any shunt with previous work up for ASD or any shunt physiology neg, and no evidence of decompensated liver disease (is not short of breath while she sits in her wheel chair but cannot sit up in bed) * Chronic stable ischemic heart disease with stent as noted * Previous lung ca with no sig recurrence REC Cont current meds lasix per cardio Ipratropium nebs atc q6 prn Saline nasal spray to both nostril Hold systemic steroids Hold further abx Keep sat at 90 percent and dc oxygen during the day if her sat stays more than 90 and pt to use oxygen at hs with humidification if needed Will follow
--- NOTE | 2017-07-11 15:06 | RADIOLOGY REPORT ---
EXAMINATION: XR CHEST CLINICAL INFORMATION: Fluid overload. Shortness of breath. Presumptive diagnosis of CHF. COMPARISON: Chest x-ray dated 07/07/2017 and multiple prior chest x-rays. CT scan of the chest dated 07/07/2017. TECHNIQUE: AP erect and lateral views of the chest were obtained. FINDINGS: The cardiomediastinal silhouette is within normal limits in size. There is slight tortuosity and calcification of the aortic arch. Slight elevation of the right hemidiaphragm is again seen due to prior right upper lobectomy. Linear suture line is again seen in the right upper lung. There is improved aeration in the right mid and lower lung. Some residual linear opacities remain in the right lower lobe, most consistent with subsegmental atelectasis. There is subtle blunting of the right CP angle, possibly due to a trace pleural effusion. The left lung is fully expanded and clear. Mild central vascular congestion is seen. Lower thoracic spine posterior fusion hardware is partially imaged. Right upper quadrant eben are in place from prior cholecystectomy. IMPRESSION: 1. Central vascular congestion is seen with no evidence of pulmonary edema. 2. Improved aeration in the right mid and lower lung with residual linear atelectatic changes remaining. 3. The patient is status post right upper lobectomy.
[2017-07-11 15:12] VITALS: BP 114/64
[2017-07-11 22:14] VITALS: BP 124/70
[2017-07-12 06:17] VITALS: BP 114/58
[2017-07-12 08:20] LABS: ABSOLUTE BASOPHIL COUNT 0 /CUMM (0.0-0.2); ABSOLUTE EOSINOPHIL COUNT 0.3 /CUMM (0.0-0.7); ABSOLUTE GRANULOCYTE CT 6.4 /CUMM (1.4-6.5); ABSOLUTE LYMPH COUNT 1.9 /CUMM (1.2-3.4); ABSOLUTE MONOCYTE COUNT 0.6 /CUMM (0.10-0.60); BASOPHIL % 0.4 % (0.0-2.0); EOSINOPHIL % 3.6 % (0-5); GRANULOCYTE % 68.9 % (42.2-75.2); HEMATOCRIT 27.4 % (37-47); MEAN CORPUSCULAR HGB 28.9 PG (27.0-31.0); MEAN CORPUSCULAR HGB CONC 33.1 G/DL (33.0-37.0); MEAN CORPUSCULAR VOLUME 87.5 FL (81.0-99.0); MEAN PLATELET VOLUME 8.3 FL (7.4-10.4); PLATELET COUNT 347 /CUMM (130-400); RED BLOOD CELL CT 3.13 /CUMM (4.20-5.40); WHITE BLOOD CELL COUNT 9.2 /CUMM (4.8-10.8)
--- NOTE | 2017-07-12 09:08 | PN- Housestaff ---
See Addendum Subjective Follow-up For: acute hypoxic respiratory failure. Subjective: Patient seen and examined. Resting comfortably. Had an uneventful night. used with oxygen overnight however oxygen saturation was above 92%. Epistaxsis episode resolved Ins and outs have been difficult to monitor because of incontinence pt's weight today is 142 and clinically there are minimal crackles on her examination improving Patient continues to report shortness of breath. It was explained to patient by me and my attending Dr. Miller that she was always going to be somewhat short of breath because of underlying COPD, heart failure ID and lung resection secondary to lung carcinoma. Patient is stable to be discharged home. Patient was extensively counseled to use Lasix regimen. patient's daughter as well to explain the need of compliance to Lasix. At present patient is refusing any form of home health services. CM working on pt's transport to home Review of Systems Constitutional: Reports: see HPI. Objective Last 24 Hrs of Vital Signs/I&O Vital Signs Date Time Temp Pulse Resp B/P B/P Pulse O2 O2 Flow FiO2 Mean Ox Delivery Rate 07/12 1043 95 Room Air Room Air 07/12 0949 67 114/58 07/12 0949 67 114/58 07/12 0807 67 114/58 07/12 0800 96 Room Air 07/12 0617 97.8 67 18 114/58 96 Room Air 07/12 0000 Venti Mask 07/11 2337 97 124/70 07/11 2217 97 124/70 07/11 2214 98.0 97 20 124/70 92 Room Air 07/11 2025 97 Room Air Room Air 07/11 1728 88 130/70 07/11 1600 Room Air 07/11 1512 97.8 99 20 114/64 96 Room Air Intake & Output 07/12 1600 07/12 0800 07/12 0000 Intake Total 240 300 Output Total Balance 240 300 Intake, Oral 240 300 Number 1 Bowel Movements Patient 143 lb Weight Physical Exam General Appearance: Alert, Oriented X3, Cooperative Cardiovascular: ireegualr Lungs: Clear to Auscultation Abdomen: Normal Bowel Sounds, Soft Neurological: Normal Speech Current Medications: Current Medications Sig/Jonel Start time Last Medication Dose Route Stop Time Status Admin Acetaminophen 325 MG Q6P PRN 07/07 1515 AC PO Albuterol Sulfate 3 ML TID 07/09 2200 AC 07/12 INH 1030 Apixaban 5 MG BID 07/11 2200 AC 07/12 PO 0807 Atorvastatin Calcium 10 MG DAILY 07/08 1000 AC 07/12 PO 0949 Benzonatate 100 MG TID PRN 07/08 1111 AC 07/08 PO 1532 Budesonide/ 2 PUF BID 07/07 2200 AC 07/12 Formoterol Fumarate INH 0814 Diltiazem HCl 60 MG TID 07/07 1600 AC 07/12 PO 0807 Furosemide 60 MG DAILY 07/11 1000 AC 07/12 PO 0807 Guaifenesin 600 MG Q12 PRN 07/07 1530 AC PO Insulin Aspart 0 TIDAC 07/07 1700 AC 07/11 SC 1728 Ipratropium Henderson 2.5 ML Q6P PRN 07/09 1515 AC INH Levothyroxine Sodium 0.088 MG DAILY AC 07/08 0700 AC 07/12 PO 0628 Lorazepam 0.5 MG Q8P PRN 07/08 0045 AC 07/09 PO 07/15 0044 1853 Losartan Potassium 25 MG DAILY 07/08 1000 AC 07/12 PO 0949 Metoprolol Tartrate 25 MG BID 07/07 2200 AC 07/12 PO 0949 Potassium Chloride 40 MEQ ONCE ONE 07/11 1600 DC 07/11 PO 07/11 1601 1728 Sodium Chloride 2 SPRAY Q4P PRN 07/08 1500 AC 07/10 CHASE 1042 Last 24 Hrs of Lab/Twan Results Last 24 Hrs of Labs/Mics: Laboratory Tests 07/12/17 0710: CBC w Diff NO MAN DIFF REQ, RBC 3.13 L, MCV 87.5, MCH 28.9, MCHC 33.1, RDW 17.0 H, MPV 8.3, Gran % 68.9, Lymphocytes % 20.8, Monocytes % 6.3, Eosinophils % 3.6 , Basophils % 0.4, Absolute Granulocytes 6.4, Absolute Lymphocytes 1.9, Absolute Monocytes 0.6, Absolute Eosinophils 0.3, Absolute Basophils 0 Assessment/Plan Assessment: This is a 81-year-old lady with multiple comorbidities including CAD status post SC stent placement,HFPrEF, paroxysmal A. fib on anticoagulation, diabetes COPD on 2 L home oxygen, ILD, lung carcinoma status post right upper lobe resection, history of colon cancer status post sigmoid resection, Gem's thyroiditis presents to the ER with a chief complaint of worsening shortness of breath. Patient had 3 admissions in April hypoxic respiratory failure. On the last admission she was treated for influenza and UTI. Patient received ceftriaxone and azithromycin in the ED Assessment Acute hypoxic respiratory failure Chronic diastolic dysfunction. Paroxysmal Atrial fibrillation Heart failure with preserved ejection fraction( 2018 EF60%, [facility]) Gem's thyroiditis Interstitial lung disease Lung cancer status post right upper lobe resection Diabetes mellitus Epistaxis Chronic paraplegia History of urinary incontinence and UTIs Plan #Acute hypoxic respiratory failure Appears more secondary to her CHF exacerbation rather than COPD. Steroids was given in the ED because patient was wheezing on presentation. CT chest positive for pulmonary congestion. She also received 1 dose of ceftriaxone and azithromycin for presumed pneumonia in ED however CT is negative for infiltrate and-Urine strep and Legionella antigen, Flu test has been negative Patient reports improvement in shortness of breath. Of note that patient has multiple comorbidities and might alwatys be somewhat short of breath at baseline with history of CHF, COPD, ILD and history of lung resection secondary to lung carcinoma. -Ins and outs have been difficult to monitor because of incontinence pt's weight today is 142 and clinically there are minimal crackles on her examination improving -TRC nebs [id number] -Keep oxygen saturations above 90%, will only use oxygen if drops below 90% -60 mg PO lasix #Atrial fibrillation -Continue home meds Cardizem and eliquis #Epistaxis-resolved Likely secondary to chronic oxygen use, patient is also on anticoagulation for atrial fibrillation. -On 07/11 patient was evaluated by ENT and cauterization was done to stop the bleeding. After that the nose was packed, it was found that pt has septal perforation -No bleeding at present -outpt f/u with ENT #Guaiac-positive stool It was reported by nurse that patient had guaiac positive stool 07/08 -Single episode of melena following epistaxis, likely secondary to swallowing blood. -Continue to monitor, GI consulted, no endoscopy required at this time -slight drop in H/H pt will require CBC monitoring by PCP #Hx of DM 3 times a day Accu-Cheks. NovoLog sliding scale. Hold metformin. Continue her medication #HX of Gem thyroiditis Patient is on levothyroxine 88 g. TSH is 1.5 free T4 is 1.5 -Endo consulted and we're going to continue the present dose of levothyroxine #Diabetic /DVT prophylaxis with Eliquis/DNR/DNI Problem List: 1. CONGESTIVE HEART FAILURE Pain Ratin Pain Location: back Pain Goal: Pain 4 or less Pain Plan: home meds Tomorrow's Labs & Rationales: none
--- NOTE | 2017-07-12 13:27 | PN- Cardiology ---
Subjective Subjective: * Breathing is back to patient's baseline. * epistaxis is resolved Objective Vital Signs and I&Os Vital Signs Date Time Temp Pulse Resp B/P B/P Pulse O2 O2 Flow FiO2 Mean Ox Delivery Rate 07/12 1043 95 Room Air Room Air 07/12 0949 67 114/58 07/12 0949 67 114/58 07/12 0807 67 114/58 07/12 0800 96 Room Air 07/12 0617 97.8 67 18 114/58 96 Room Air 07/12 0000 Venti Mask 07/11 2337 97 124/70 07/11 2217 97 124/70 07/11 2214 98.0 97 20 124/70 92 Room Air 07/11 2025 97 Room Air Room Air 07/11 1728 88 130/70 07/11 1600 Room Air 07/11 1512 97.8 99 20 114/64 96 Room Air Intake & Output 07/12 1600 07/12 0800 07/12 0000 07/11 1600 07/11 0800 07/11 0000 Intake Total 240 300 720 810 Output Total Balance 240 300 720 810 Intake, IV 10 Intake, Oral 240 300 720 800 Number 1 Bowel Movements Patient 143 lb 143 lb 154 lb Weight Weight Bed scale Measurement Method Physical Exam: General: WD/overweight female in mild distress; alert and oriented x 3 Neck: no JVD, no carotid bruit Heart: irregularly irregular Lungs: no crackles Extremities: no edema Neuro: bilateral lower extremity paralysis Assessment/Plan Assessment/Plan * This patient has no current shortness of breath that is beyond her baseline. She does have an increased BUN/CR ratio. I would continue her Lasix at its current dose of 60mg daily. This patient also has COPD, interstitial lung disease and a right lobectomy for lung cancer. * Atrial fibrillation. This is a chronic condition. Continue Metoprolol and Cardizem for rate control. The patient will need to have her Eliquis held in the setting of an active bleed. Restart when thought by ENT to be safe. Continue telemetry? No
[2017-07-12 14:38] VITALS: BP 110/60
== END 2017-07-12 15:09 | DRG 291 ==
LOC: ERH 12:44 → 2NB 14:48 → ERHI 14:48 → ENRESERV 16:01 → ENTRNSPT 16:30 → EDTRNSPTSTS 16:33 → 2NB 16:43 → CMPTRNSPT 17:12 → 2NB 07-09 08:19 → ENPENDDIS 07-12 09:33 → ENTRNSPT 07-12 14:59 → CMPTRNSPT 07-12 15:01 → 2NB 07-12 15:09
PROVIDERS: Internal Medicine; Student in an Organized Health Care Education/Training Program
PROC: 095M8ZZ Destruction of Nasal Septum, Via Natural or Artificial Opening Endoscopic (ICD-10-PCS; principal; 2017-07-10)
DX: I11.0 Hypertensive heart disease with heart failure (principal); J96.21 Acute and chronic respiratory failure with hypoxia; J84.9 Interstitial pulmonary disease, unspecified; J96.22 Acute and chronic respiratory failure with hypercapnia; G82.20 Paraplegia, unspecified; K92.1 Melena; I27.20 Pulmonary hypertension, unspecified; I50.33 Acute on chronic diastolic (congestive) heart failure; Z99.81 Dependence on supplemental oxygen; J44.9 Chronic obstructive pulmonary disease, unspecified; I48.0 Paroxysmal atrial fibrillation; Z79.01 Long term (current) use of anticoagulants; I08.3 Combined rheumatic disorders of mitral, aortic and tricuspid valves; E11.9 Type 2 diabetes mellitus without complications; I25.10 Atherosclerotic heart disease of native coronary artery without angina pectoris; I25.2 Old myocardial infarction; E06.3 Autoimmune thyroiditis; R32 Unspecified urinary incontinence; F41.9 Anxiety disorder, unspecified; R04.0 Epistaxis; J34.89 Other specified disorders of nose and nasal sinuses; Z66 Do not resuscitate; Z88.5 Allergy status to narcotic agent; Z91.14 Patient's other noncompliance with medication regimen; E03.9 Hypothyroidism, unspecified; Z90.49 Acquired absence of other specified parts of digestive tract; Z85.118 Personal history of other malignant neoplasm of bronchus and lung; Z90.2 Acquired absence of lung [part of]; Z85.038 Personal history of other malignant neoplasm of large intestine; Z95.5 Presence of coronary angioplasty implant and graft; Z87.891 Personal history of nicotine dependence; Z79.84 Long term (current) use of oral hypoglycemic drugs
CPT/HCPCS: 2NBSP; 36415; 36592; 71045; 71046; 74176; 81001; 82436; 87086; 87449; 87450; 87804; 87804-59; 93005; 93010; 96374; 99291; J0456; J0696; J1940; J2920; J3490; J7060